=== PATIENT | male | born 1980 | race Caucasian/White ===

== ENCOUNTER 2018-02-05 17:32 | Emergency (ER) | payer MEDICAID, SELFPAY ==
[2018-02-05 17:33] VITALS: BP 147/89; PULSE 98; RESP 17; TEMP 37.3; O2SAT 100; BMI 26.5
--- NOTE | 2018-02-05 17:52 | CT_ITS ---
STUDY: CT ABDOMEN AND PELVIS WITHOUT CONTRAST REASON FOR EXAM: Male, 38 years old. Abdominal pain x3 weeks RADIATION DOSAGE (If Supplied By Facility): CTDIvol = ( 6.85 ) mGy, DLP = ( 350.85 ) mGycm TECHNIQUE: Transaxial images were obtained from the dome of the diaphragm to the symphysis pubis without oral contrast, and without intravenous contrast. Sagittal and coronal images were reconstructed. Individualized dose optimization techniques were used for this CT. COMPARISON: None. FINDINGS: The visualized lung bases are unremarkable. The visualized portions of the heart are within normal limits. Normal liver. Normal gallbladder and extrahepatic biliary system. Normal spleen. Normal pancreas. Normal bilateral adrenal glands. Normal right kidney. Normal left kidney. Normal visualized stomach. Normal small intestine. Normal colon. There are surgical clips in the region of the appendix consistent with a prior appendectomy. Normal abdominal aorta. Normal inferior vena cava. Normal retroperitoneum. Normal urinary bladder. Normal visualized prostate gland. Normal abdominal wall. Normal osseous structures. CT/Abdomen/Pelvis without Cont IMPRESSION: Normal unenhanced CT of the abdomen and pelvis. Status post appendectomy Electronically Signed: Clifton Larson DO at 18:30 EDT Tel , Service support ,
[2018-02-05] MEDS: morphine 10 MG/ML Syringe IM (18:00)
[2018-02-05] MEDS: Ketorolac 60 MG/2 ML Vial IM (18:00)
[2018-02-05 18:13] LABS: Bacteria 0 SEEN /hpf (None Seen); Mucous, Urine 0 SEEN /hpf (<or=2+); Red Blood Cells-Urine 0 SEEN /hpf (0-5); Squamous Epithelial Cells - UA 0 SEEN /hpf (0-5); White Blood Cells 0 SEEN /hpf (0-5)
[2018-02-05 18:20] LABS: Color, Urine Yellow (Yellow); Glucose, Dipstick Normal (Normal); Ketone-Dipstick Negative (Negative); Leukocyte Esterase-Dipstick Negative /ul (Negative); Nitrite-Dipstick Negative (Negative); Occult Blood-Urine Negative /ul (Negative); Protein-Dipstick Negative (Negative); Specific Gravity, Urine 1.005 (1.002-1.030); Urine Bilirubin Dipstick Negative (Negative); Urine Clarity Clear (Clear); Urine Urobilinogen Normal (Normal)
--- NOTE | 2018-02-05 18:55 | ED.DCSUM_ITS ---
- ER Visit Summary Date of Service: 02/05/18 Chief Complaint: Back pain History of Present Illness: The patient is a 38 M who states that for the past 3 weeks he has had a progressively worsening back pain. He describes it as bilateral in the lower back. He states that movement does not necessarily make it worse. He cannot find a position of comfort. The pain is aching to sharp. He has been using [id number] medicines such as Motrin and Tylenol without relief. The pain does not radiate into the legs. He denies any IV drug use fevers or rashes. He is a longtime smoker. He notes no distant or current trauma. Denies any bowel or bladder dysfunction. Denies any weakness of the lower extremity or tingling. Or numbness. Physical Examination: Afebrile vital signs are stable Gen: Well-nourished well-developed patient appears uncomfortable Head: Normocephalic atraumatic Eyes: Perrl EOMI ENT: TMs clear no rhinorrhea moist mucous membranes Neck: Supple no lymphadenopathy no JVD nontender CVS: Regular rate rhythm no murmurs normal S1-S2 Respiratory: No distress clear to auscultation bilaterally chest nontender Abdomen: Soft nontender nondistended normal bowel sounds no masses Back: There is no midline lumbar pain. There is bilateral paraspinal tenderness no erythema or rashes Extremity: Nontender no edema Skin: Normal color no rash Neuro: alert orientated ?3 CN II-XII intact normal strength sensation normal patellar and Achilles deep tendon reflexes antalgic gait Psych: Normal affect normal mood Test Results: Urinalysis was negative for infection. CT abdomen pelvis does not demonstrate an acute etiology to explain the patient's pain. Emergency Department Course and Treatment: Patient received Toradol and morphine. His oars report shows that he had only one prescription last year for controlled substance. This is not appear to be a radicular type of pain. 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 I will write for [place] Valium and ibuprofen. He is to follow-up with primary care which his brother states will be his doctor Dr. Ramos. Impression: 1. Acute lumbar back pain This note was generated with [employer] dictation software. It may contain incorrect words, spelling, and punctuation that were not noted in review of the chart prior to signing ED Disposition - Plan for ED Patient: Disposition: Home or Assisted Living Chief Complaint: Back Instructions: ED Neck Back Pain General Prescriptions: Hydrocodone Bitart/Apap 5-325 [[place] 5MG-325MG] 1 tab PO Q4H PRN PRN 3 Days #15 tab PRN Reason: Pain Diazepam [Valium] 5 mg PO Q8 PRN 3 Days #15 tab PRN Reason: Muscle Spasm Ibuprofen [Motrin] 800 mg PO TID PRN PRN #20 tab PRN Reason: Pain Referrals: Serjio Hernandez MD [STAFF PHYSICIAN] - As soon as possible
== END 2018-02-05 19:03 | disposition home or self-care (01) ==
PROVIDERS: Emergency Provider Emergency Medicine
DX: M54.5 Low back pain (principal); J45.909 Unspecified asthma, uncomplicated; F17.200 Nicotine dependence, unspecified, uncomplicated
CPT/HCPCS: 74176; 81001; 96372; 99282

== ENCOUNTER 2018-02-23 14:35 | Emergency (ER) | payer MEDICAID, SELFPAY ==
[2018-02-23 14:37] VITALS: BP 133/75; PULSE 102; RESP 16; TEMP 36.8; O2SAT 100; BMI 25.5
--- NOTE | 2018-02-23 14:51 | ED.DCSUM_ITS ---
- ER Visit Summary Date of Service: 02/23/18 Chief Complaint: Headache History of Present Illness: The patient is a 38 M presents with frontal headache since yesterday. Photo and phonophobia. Nausea vomiting x3 last time was yesterday evening. Is tolerating oral fluids. Complains of chills and myalgias. No head injuries. No abdominal pain. No diarrhea. No urinary symptoms. History of asthma, reports did obtain the flu vaccination 2 months ago. Tobacco history. Physical Examination: General: Alert and oriented ?3, no acute distress HEENT: Normocephalic, atraumatic. Moist mucosa membranes. Neck: supple, nontender. No meningismus Cardiovascular: Regular rate and rhythm, no murmurs Respiratory: Normal breath sounds, symmetric, no distress Abdomen: Soft, nontender, nondistended Extremities: Nontender, no edema, pulses intact ?4 Neuro: no focal neurological deficits. Test Results: Influenza: Negative Emergency Department Course and Treatment: Patient no meningismus no focal neurologic deficit. Migraine noted symptoms. Treated with migraine regimen with significant improvement of symptoms. Influenza obtained due to his asthma history appears negative. He is in no respiratory distress. Discussed viral syndrome with the patient. Continue oral hydration. Prescription for Zofran as needed. Follow-up as an outpatient. Work note given. Treatment Plan: [] Disposition: Discharge Impression: 1. Cephalgia 2. Viral syndrome This note was generated with [employer] dictation software. It may contain incorrect words, spelling, and punctuation that were not noted in review of the chart prior to signing ED Disposition - Plan for ED Patient: Disposition: Home or Assisted Living Chief Complaint: Headache Diagnosis: Cephalgia, Viral syndrome Instructions: ED Headache Migraine, ED Viral Syndrome Prescriptions: Ondansetron [Zofran Odt] 8 mg PO Q8H PRN PRN #10 tab PRN Reason: Nausea Referrals: Care Physician,No Primary [Primary Care Provider] - Rhett Mclean MD [STAFF PHYSICIAN] - 5-7 Days
[2018-02-23] MEDS: DiphenhydrAMINE 50 MG/ML Syringe 25 MG IV (15:12)
[2018-02-23] MEDS: Metoclopramide 10 MG/2 ML Vial IV (15:13)
[2018-02-23] MEDS: Ketorolac 30 MG/ML Syringe IV (15:13)
[2018-02-23] MEDS: 0.9% Normal Saline 1,000 ML 999 ML IV (15:13)
[2018-02-23 16:04] VITALS: BP 132/78; PULSE 98; RESP 15; O2SAT 98
--- NOTE | 2018-02-23 16:05 | ED.RN ---
PT GIVEN WRITTEN AND VERBAL DISCHARGE INSTRUCTIONS AND HOME GOING PRESCRIPTIONS. PT VERBALIZES UNDERSTANDING AND DENIES ANY FURTHER QUESTIONS. PT IV D/C AND COVERED WITH 2X2 GAUZE AND PAPER TAPE. PT EDUCATED NOT TO DRIVE AFTER HAVING IV BENADRYL FOR SIX MORE HOURS. PT VERBALIZES UNDERSTANDING AND REPORTS THAT HIS FATHER IS COMING TO GET HIM. 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
== END 2018-02-23 16:07 | disposition home or self-care (01) ==
PROVIDERS: Emergency Provider Emergency Medicine
DX: G43.909 Migraine, unspecified, not intractable, without status migrainosus (principal); B34.9 Viral infection, unspecified; R68.83 Chills (without fever); R05 Cough; J45.909 Unspecified asthma, uncomplicated; Z72.0 Tobacco use
CPT/HCPCS: 87804; 96361; 96374; 96375; 99283; J7030

== ENCOUNTER 2018-06-30 09:12 | Emergency (ER) | payer MEDICAID, SELFPAY ==
--- NOTE | 2018-06-30 09:14 | EKG12_ITS ---
Test Reason : Blood Pressure : / mmHG Vent. Rate : 089 BPM Atrial Rate : 089 BPM P-R Int : 186 ms QRS Dur : 086 ms QT Int : 374 ms P-R-T Axes : 060 027 045 degrees QTc Int : 455 ms Normal sinus rhythm Normal ECG Confirmed by PHILLIP FLORENCE MD ([id number]), commercial production editor ALMA DELIA BACON ([id number]) on 07/01/2018 3:51:58 PM Referred By: CHARLEE Confirmed By:PHILLIP FLORENEC MD
[2018-06-30 09:20] VITALS: BP 143/93; PULSE 92; RESP 18; TEMP 31.6; O2SAT 98; BMI 23.4
--- NOTE | 2018-06-30 09:28 | ED.DCSUM_ITS ---
History of Present Illness Chief Complaint: Chest Pain Informant: Patient Onset: Today Context: Sudden Onset Timing: Continuous Quality: Sharp Location: Anterior left chest Current Severity: Mild Maximum Severity: Severe Worsened by: Coughing, movement especially left upper extremity Relieved by: Nothing Associated Symptoms: URI symptoms Narrative: Patient is a 38-year-old male who is a smoker of 1 pack/day presents with left- sided chest pain. He does report congestion, sore throat and cough. Cough is nonproductive. He denies fever or chills. He denies ocular, visual auditory symptoms. Denies history of PE, DVT or any risk factors. Prior similar symptoms: No Recent Illness/Hospitalization: No Past Medical History - Allergies and Home Meds Allergies/Adverse Reactions: Allergies No Known Allergies Allergy (Verified 06/30/18 09:22) Primary Care Physician: Care Physician,No Primary [Primary Care Provider] - Prior records reviewed: Yes Past Medical History: None Surgical History: no surgical history Lives: With Family Smoking Status: Current every day smoker Drugs: None Review of Systems General: Reports: Chills, Fever, Subjective Eyes: Denies: Visual changes - bilaterally, Blurred Vision - bilaterally, Diplopia ENT: Reports: Rhinorrhea, Sore throat. Denies: Bilateral ear pain Cardiovascular: Denies: Chest pain, Palpitations, Heart racing Respiratory: Reports: Cough. Denies: Sputum, Dyspnea on exertion, Orthopnea, Paroxysmal nocturnal dyspnea Gastrointestinal: Denies: Abdominal pain, Nausea, Vomiting, Diarrhea, Melena, Hematochezia Genitourinary: Denies: Dysuria, Hematuria, Frequency Musculoskeletal: Denies: Back pain, Extremity Pain Skin: Denies: Rash, Wounds Neurological: Denies: Headache, Weakness, Numbness Hematologic: Denies: Easy bruising, Easy bleeding Allergy: Denies: Uticaria Physical Exam Vital Signs/Narrative: Vital Signs Temp Pulse Resp BP Pulse Ox 06/30/18 09:20 89 F L 92 18 143/93 H 98 General: Well nourished, Well developed, No Acute Distress Head: Normocephalic, Atraumatic Eyes: Perrl, EOMI ENT: Moist mucous membranes, No rhinorrhea Neck: Supple, Nontender Cardiovascular: Regular rate, Regular rhythm, No murmurs Respiratory: No distress, CTA bilaterally, Chest tenderness - Thanks I went not output is good weight is again for skin Abdomen: Soft, Nontender, Nondistended, Normal bowel sounds Back: Nontender, Normal Inspection Extremities: Nontender, No edema, - - There is no asymmetry, swelling, discoloration, leg vein distention, palpable cords or tenderness along the distribution of the deep venous system. Skin: Normal color, No rash Neurological: Alert, Oriented x3, Cranial nerves II-XII grossly intact, Normal Strength, Normal Sensation Psychological: Normal affect, Normal Mood Diagnostic/Tx/Re-eval - Rhythm Strip Rhythm Strip: Sinus Rhythm Rate: 86 Ectopy: None - EKG Initial EKG Interpretation: Sinus Rhythm - Ventricular rate 89, MI interval, QRS duration, QT interval and axis are normal. EKG was ordered per nurse protocol since he reported chest pain. - Medical Decision Making Heart rate on monitor is 86. Patient is PERC negative. Since patient has URI symptoms reproducible chest pain will treat for costochondritis. Imaging is not indicated. Laboratory testing is not indicated nor was it obtained. Patient was informed since he is a smoker he may have a cough for 4 weeks. ED Disposition - Plan for ED Patient: Disposition: Home or Assisted Living Diagnosis: Acute costochondritis, Upper respiratory infection, acute Instructions: ED Chest Pain Costochondritis, ED URI Viral Prescriptions: Naproxen [Naprosyn] 500 mg PO BID #14 tablet Referrals: Care Physician,No Primary [Primary Care Provider] - Fallon Costello DO [STAFF PHYSICIAN] - 10-14 Days if not better
[2018-06-30] MEDS: Naproxen 250 MG Tablet 500 MG PO (10:33)
[2018-06-30 10:34] VITALS: BP 124/78; PULSE 81; RESP 16; O2SAT 100
== END 2018-06-30 10:35 | disposition home or self-care (01) ==
LOC: ED 09:41
PROVIDERS: Emergency Provider Emergency Medicine; Family Provider Family Medicine; PCP Family Medicine
DX: M94.0 Chondrocostal junction syndrome [Tietze] (principal); J06.9 Acute upper respiratory infection, unspecified; F17.200 Nicotine dependence, unspecified, uncomplicated
CPT/HCPCS: 93005; 99282; A4216

== ENCOUNTER 2018-10-27 11:29 | Emergency (ER) | payer OTHER, SELFPAY ==
[2018-10-27 11:29] VITALS: BP 148/96; PULSE 89; RESP 18; TEMP 36.6; O2SAT 98; BMI 26.4
--- NOTE | 2018-10-27 11:57 | ED.VISSUMM ---
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 He did not have any pain while he was lifting. After he got home he developed pain in the low back. States it is worse today. Is worse with movement. He denies any fevers or IV drug use. He notes no radicular symptoms to the legs. No bowel or bladder dysfunction. Any lower extremity weakness or decreased sensation. Physical Examination: Afebrile vital signs are stable Gen: Well-nourished well-developed Head: Normocephalic atraumatic Eyes: Perrl EOMI ENT: TMs clear no rhinorrhea moist mucous membranes Neck: Supple no lymphadenopathy no JVD nontender CVS: Regular rate rhythm no murmurs normal S1-S2 Respiratory: No distress clear to auscultation bilaterally chest nontender Abdomen: Soft nontender nondistended normal bowel sounds no masses Back: Patient has tenderness palpation over the lumbar paraspinal musculature. There is no rash swelling or erythema to suggest abscess. Extremity: Nontender no edema Skin: Normal color no rash Neuro: alert orientated ?3 CN II-XII intact normal strength sensation reflexes antalgic gait Psych: Normal affect normal mood Emergency Department Course and Treatment: The patient received a dose of Toradol Norflex and [place]. I will write for Valium and [place] and ibuprofen at home. He is to follow-up with [employer]. Impression: 1. Acute lumbar muscle strain This note was generated with [employer] dictation software. It may contain incorrect words, spelling, and punctuation that were not noted in review of the chart prior to signing ED Disposition - Plan for ED Patient: Disposition: Home or Assisted Living Instructions: Back Sprain/Strain Prescriptions: Ibuprofen [Motrin] 800 mg PO TID PRN PRN #15 tab PRN Reason: pain Prescription Printed Hydrocodone Bitart/Apap 5-325 [[place] 5MG-325MG] 1 tab PO Q6H PRN PRN 3 Days #12 tab PRN Reason: Pain Prescription Printed Diazepam [Valium] 5 mg PO Q8 PRN #15 tab PRN Reason: Muscle Spasm Prescription Printed Referrals: [facility] [GROUP OF PHYSICIANS] - As soon as possible
[2018-10-27] MEDS: Orphenadrine 60 MG/2 ML Ampul IM (12:02)
[2018-10-27] MEDS: Ketorolac 60 MG/2 ML Vial IM (12:02)
[2018-10-27] MEDS: HYDROcodone Bitartrate/Apap 5/325 Tablet PO (12:03)
--- NOTE | 2018-10-27 12:20 | ED.RN ---
PT INFORMED HE NEEDS TO GO TO [facility] FOR HIS [facility]UG SCREENING PRIOR TO RETURNING TO WORK.
== END 2018-10-27 12:21 | disposition home or self-care (01) ==
PROVIDERS: Emergency Provider Emergency Medicine; Family Provider Family Medicine; PCP Family Medicine
DX: S39.012A Strain of muscle, fascia and tendon of lower back, initial encounter (principal); X58.XXXA Exposure to other specified factors, initial encounter; Y93.9 Activity, unspecified; Y92.9 Unspecified place or not applicable; Z72.0 Tobacco use
CPT/HCPCS: 96372; 99282

== ENCOUNTER 2018-12-29 13:03 | Emergency (ER) | payer MEDICAID, SELFPAY ==
[2018-12-29 13:03] VITALS: BP 128/85; PULSE 95; RESP 16; TEMP 36.8; O2SAT 99; BMI 26.0
--- NOTE | 2018-12-29 13:15 | CT_ITS ---
STUDY: CT CERVICAL SPINE WITHOUT CONTRAST REASON FOR EXAM: Male, 38 years old. Stiff neck and headaches. RADIATION DOSAGE (If Supplied By Facility): CTDIvol = ( 26.64 ) mGy, DLP = ( 647.19 ) mGycm TECHNIQUE: High resolution transaxial imaging was performed without contrast material. Sagittal and coronal images were reconstructed. Individualized dose optimization techniques were used for this CT. COMPARISON: None FINDINGS: Normal craniovertebral junction. Normal anterior atlantoaxial articulation. Normal odontoid process. There is straightening of the normal cervical lordosis. Normal vertebral bodies and posterior osseous elements. C2-3: Normal endplates. Normal disc height and morphology. Normal central canal and intervertebral neuroforamina. C3-4: Normal endplates. Normal disc height and morphology. Normal central canal and intervertebral neuroforamina. C4-5: Normal endplates. Normal disc height and morphology. Normal central canal and intervertebral neuroforamina. C5-6: Mild degree of disc space narrowing with anterior spondylosis. C6-7: Normal endplates. Normal disc height and morphology. Normal central canal and intervertebral neuroforamina. C7-T1: Normal endplates. Normal disc height and morphology. Normal central canal and intervertebral neuroforamina. Normal visualized soft tissue structures. CT/Spine Cervical without Contras IMPRESSION: Mild degree of disc space narrowing with anterior spondylosis at the C5-C6 level. Electronically Signed: Chevy Subramanian, at 14:53 EDT , Service support ,
--- NOTE | 2018-12-29 13:16 | ED.VIS.GEN ---
History of Present Illness Chief Complaint: General Illness Detail of Chief Complaint: Neck and head pain Informant: Patient Onset: Days - 4 days Context: Gradual Onset Current Severity: Moderate Maximum Severity: Moderate Narrative: Patient presents with a 4-day history of pain in the right side of his neck and up into the occiput. Patient was playing with his children. He states they were jumping on the bed and then face planting on the bed like a wrestling move. He had no pain after doing this, but had right neck pain in the next morning when he woke up. Pain has persisted for 4 days. He states he gets mild light sensitivity and is felt nauseated and fatigued. He has been trying Tylenol and ibuprofen without improvement. He denies any arm weakness or paresthesias. He denies fever or other illness. Past Medical History - Allergies and Home Meds Allergies/Adverse Reactions: Allergies No Known Allergies Allergy (Verified 12/29/18 13:05) Primary Care Physician: Fallon Costello DO [STAFF PHYSICIAN] - Prior records reviewed: Yes Past Medical History: - - Reviewed Surgical History: no surgical history Lives: With Family Smoking Status: Current every day smoker Review of Systems General: Denies: Chills, Fever Eyes: Denies: Visual changes - bilaterally ENT: Denies: Bilateral ear pain Cardiovascular: Denies: Chest pain Respiratory: Denies: Dyspnea, Cough Gastrointestinal: Reports: Nausea Musculoskeletal: Reports: Neck pain. Denies: Extremity Pain Skin: Denies: Rash Neurological: Reports: Headache - Occiput Physical Exam Vital Signs/Narrative: Vital Signs Temp Pulse Resp BP Pulse Ox 12/29/18 13:03 98.2 F 95 16 128/85 H 99 Inital Vital Signs reviewed: Yes General: Well nourished, Well developed Head: Normocephalic Eyes: Perrl, EOMI ENT: Moist mucous membranes Neck: - - Reproducible tenderness in the right lower cervical paraspinal muscles and along the deltoid. No midline cervical tenderness. Cardiovascular: Regular rate, Regular rhythm Respiratory: No distress, CTA bilaterally Abdomen: Soft, Nontender, Hypoactive bowel sounds Back: Nontender Extremities: Nontender, No edema Skin: Normal color, No rash Neurological: Alert, Oriented x3, Normal Strength, Normal Sensation Psychological: Normal affect Diagnostic/Tx/Re-eval Impressions Cervical Spine CT 12/29/18 13:15 IMPRESSION: Mild degree of disc space narrowing with anterior spondylosis at the C5-C6 level. Electronically Signed: Chevy Subramanian, at 14:53 EDT , Service support , 12/29/18 13:15 CT Cervical [Spine Cervical without Contras] [CT] Stat - Medical Decision Making She was initially given morphine, Zofran, Toradol, and IV fluids. This was followed by a dose of p.o. Valium. Test results are discussed with patient and at bedside. Symptoms are improving. He will be given a work note for today. ED Disposition - Plan for ED Patient: Disposition: Home or Assisted Living Diagnosis: Spasm of cervical paraspinous muscle Instructions: Neck Sprain/Strain, NECK SPASM, No Trauma Prescriptions: Naproxen [Naprosyn] 500 mg PO BID PRN PRN #20 tablet PRN Reason: Pain Score 1-10/10 Hydrocodone Bitart/Apap 5-325 [[place] 5MG-325MG] 1 tablet PO Q4H PRN PRN 2 Days #10 tablet PRN Reason: Pain Diazepam [Valium] 5 mg PO Q8 PRN #10 tablet PRN Reason: Muscle Spasm Referrals: Fallon Costello DO [STAFF PHYSICIAN] - 1 Week if not improving
[2018-12-29] MEDS: 0.9% Normal Saline 1,000 ML 1000 ML IV (13:35)
[2018-12-29] MEDS: Ondansetron 4 MG/2 ML Vial IV (13:36)
[2018-12-29] MEDS: Ketorolac 30 MG/ML Syringe IV (13:36)
[2018-12-29] MEDS: Morphine 4 MG/ML Syringe IV (13:36)
[2018-12-29] MEDS: diazePAM 5 MG Tablet PO (14:57)
[2018-12-29 15:27] VITALS: BP 115/76; PULSE 81; RESP 12; O2SAT 99
== END 2018-12-29 15:29 | disposition home or self-care (01) ==
PROVIDERS: Emergency Provider Emergency Medicine
DX: M62.838 Other muscle spasm (principal); M54.2 Cervicalgia; R11.0 Nausea; R53.83 Other fatigue; R51 Headache; W22.8XXA Striking against or struck by other objects, initial encounter; Y93.39 Activity, other involving climbing, rappelling and jumping off; Y92.9 Unspecified place or not applicable; M47.812 Spondylosis without myelopathy or radiculopathy, cervical region; F17.200 Nicotine dependence, unspecified, uncomplicated
CPT/HCPCS: 72125; 96361; 96374; 96375; 99285; J7030; J2405

== ENCOUNTER 2019-10-03 12:13 | Emergency (ER) | payer MEDICAID, SELFPAY ==
[2019-10-03 12:14] VITALS: BP 123/79; PULSE 86; RESP 16; TEMP 36.4; O2SAT 97; BMI 29.0
--- NOTE | 2019-10-03 12:35 | RAD_ITS ---
STUDY: X-RAY - RIGHT FOOT CLINICAL: Male, 39 years old. Injury, right foot pain TECHNIQUE: 3 view(s) of the foot. COMPARISON: None. FINDINGS: Normal talus, calcaneus, and tarsal bones. Normal visualized subtalar, talonavicular, calcaneocuboid, tarsal and tarsometatarsal articulations. Normal metatarsi. Normal metatarsophalangeal joint of the great toe. Normal tibial and fibular sesamoid bones. Normal interphalangeal joint of the great toe. Normal phalanges of the great toe. Normal second through fifth metatarsophalangeal joints. Normal interphalangeal joints and phalanges of the lesser toes. The soft tissue structures are unremarkable. RAD/Foot min 3 Views IMPRESSION: Normal x-ray examination of the foot. Electronically Signed: Chevy Subramanian, at 13:23 EDT , Service support ,
--- NOTE | 2019-10-03 13:09 | RAD_ITS ---
STUDY: X-RAY - RIGHT ANKLE REASON FOR EXAM: Male, 39 years old. PAIN, INJURY 2 DAYS AGO TECHNIQUE: 3 view(s) of the ankle. COMPARISON: Comparison is made with prior study dated October 12, 2013. FINDINGS: Normal visualized distal tibia and fibula. Normal medial and lateral malleoli. Normal tibiotalar articulation and ankle mortise. A small spur is seen at the insertion of the Achilles tendon. The visualized subtalar, talonavicular, calcaneocuboid and tarsal articulations are normal. The soft tissue structures are unremarkable. RAD/Ankle min 3 Views IMPRESSION: Normal x-ray examination of the ankle. Electronically Signed: Chevy Subramanian, at 13:33 EDT , Service support ,
--- NOTE | 2019-10-03 13:10 | ED.DCSUM_ITS ---
- ER Visit Summary Date of Service: 10/03/19 Chief Complaint: Right foot and ankle pain History of Present Illness: The patient is a 39 M who presents with right foot and ankle pain that is been getting worse over the past 2 days. Patient states he injured his right foot and ankle while jumping on a trampoline. Patient states the pain is sharp. Patient states pain is worse with any weightbearing. Patient denies any paresthesias or weakness. Patient denies any head injury or loss of consciousness. Patient denies any other injuries. Physical Examination: Vital signs are stable. Patient is afebrile. Patient is in no acute distress. Musculoskeletal exam reveals tenderness over the midfoot and hindfoot of the right foot. There is also tenderness over the lateral malleolus of the right ankle. There is some edema. There is some mild ecchymosis. There is no deformity noted. Range of motion was limited in all motions of the right foot and ankle secondary to pain. Pedal pulses are equal bilaterally. Sensation was intact light touch in all digits. Capillary refill was less than 2 seconds in all digits. Test Results: X-rays of the right foot were obtained. There is no acute fracture. X-rays of the right ankle were obtained. There is no acute fracture. These were interpreted by the radiologist and myself. Emergency Department Course and Treatment: Patient was given an ice pack. Patient was given an Aircast for his ankle. Patient was instructed to ice and elevate the right foot and ankle. Patient was instructed to follow-up with his primary care physician in 5 to 7 days. Patient understood and was agreeable with the plan. All questions were answered. Disposition: Discharge home Impression: 1. Right ankle sprain This note was generated with [employer] dictation software. It may contain incorrect words, spelling, and punctuation that were not noted in review of the chart prior to signing ED Disposition - Plan for ED Patient: Disposition: Home or Assisted Living Diagnosis: Right ankle sprain Instructions: ED Sprain Ankle W X Ray Referrals: Care Physician,No Primary [Primary Care Provider] - 5-7 Days
[2019-10-03 14:34] VITALS: BP 108/77; PULSE 82; RESP 16; O2SAT 98
== END 2019-10-03 14:35 | disposition home or self-care (01) ==
PROVIDERS: Emergency Provider Emergency Medicine
DX: S93.401A Sprain of unspecified ligament of right ankle, initial encounter (principal); X58.XXXA Exposure to other specified factors, initial encounter; Y93.44 Activity, trampolining; Y92.9 Unspecified place or not applicable; Y99.9 Unspecified external cause status; Z72.0 Tobacco use; Z79.899 Other long term (current) drug therapy
CPT/HCPCS: 73610; 73630; 99283

== ENCOUNTER 2020-04-22 22:25 | Emergency (ER) | payer MEDICAID, SELFPAY ==
[2020-04-22 22:26] VITALS: BP 121/109; PULSE 103; RESP 15; TEMP 36.1; O2SAT 96; BMI 26.6
--- NOTE | 2020-04-22 22:45 | ED.VIS.GEN ---
History of Present Illness Chief Complaint: Upper Extremity Injury Informant: Patient Onset: Days Context: Gradual Onset Timing: Continuous Current Severity: Moderate Maximum Severity: Moderate Narrative: Patient is a 40-year-old male is right-hand dominant the presents to the emergency department with right posterior shoulder pain. Patient states is been on for about a week. He describes a sharp, stabbing pain under her shoulder blade. He states is worse if he moves, twists, or cough. He denies shortness of breath. He denies fevers or chills. He states today, the pain got significant and he vomited. He cannot recall any injury. He is used ibuprofen and topical treatments with little relief. He denies any numbness in the hand. He states he does feel like his neck is tight from time to time. Prior similar symptoms: No Recent Illness/Hospitalization: No Past Medical History - Allergies and Home Meds Allergies/Adverse Reactions: Allergies No Known Allergies Allergy (Verified 04/22/20 22:30) Primary Care Physician: Care Physician,No Primary [Primary Care Provider] - Prior records reviewed: Yes Past Medical History: None Surgical History: no surgical history Smoking Status: Current every day smoker Review of Systems General: Denies: Chills, Fever, Sweats Eyes: Denies: Visual changes - bilaterally, Diplopia ENT: Denies: Rhinorrhea, Sore throat Cardiovascular: Denies: Chest pain, Palpitations Respiratory: Denies: Dyspnea, Cough, Dyspnea on exertion Gastrointestinal: Denies: Abdominal pain, Nausea, Vomiting, Diarrhea, Melena, Hematochezia Genitourinary: Denies: Dysuria, Hematuria, Frequency Musculoskeletal: Reports: Myalgias, Arthralgias. Denies: Back pain, Extremity Pain Skin: Denies: Rash, Wounds Neurological: Denies: Headache, Weakness, Numbness Physical Exam Vital Signs/Narrative: Vital Signs Temp Pulse Resp BP Pulse Ox 04/22/20 22:26 97.0 F L 103 H 15 121/109 H 96 Inital Vital Signs reviewed: Yes General: Well nourished, Well developed, No Acute Distress Head: Normocephalic, Atraumatic Eyes: Perrl, EOMI ENT: Moist mucous membranes, No rhinorrhea Neck: Supple, Nontender Cardiovascular: Regular rate, Regular rhythm, No murmurs Respiratory: No distress, CTA bilaterally, Chest nontender Abdomen: Soft, Nontender, Nondistended, Normal bowel sounds Back: Normal Inspection, - - The patient is point tender in the rhomboid musculature with some spasm. There is no crepitus or step-off. He has no midline bony tenderness. Pulses of bilateral upper extremities are normal. He has normal strength and reflexes. His neck is supple. Extremities: Nontender, No edema Skin: Normal color, No rash Neurological: Alert, Oriented x3, Cranial nerves II-XII grossly intact, Normal Strength, Normal Sensation Psychological: Normal affect, Normal Mood Diagnostic/Tx/Re-eval Clinical Impression(s) from Imaging Studies Thoracic Spine X-Ray 04/22/20 22:50 IMPRESSION: Normal x-ray examination of the thoracic spine. Electronically Signed: Kal Bryant MD at 23:31 EST , Service support , - Medical Decision Making The patient presents with upper back and shoulder pain. He is not hypoxic or tachypneic. He has no pleuritic pain. His pain is reproducible. Clinically, I think he may be a thoracic impingement. The pain does not radiate down his arms. He has normal pulses, reflexes, and strength. He has no significant neck pain. I did obtain thoracic spine views. These were reviewed by both myself and the radiologist. There is no evidence of acute fracture, dislocation, or other dangerous process. His lung dumont are also normal. At this point, I am going to treat the patient with anti-inflammatories and analgesics. I will have him follow-up with his primary care in a week if is not improving. The patient will be discharged home. Impression 1. Thoracic impingement ED Disposition - Plan for ED Patient: Instructions: ED Thoracic Spine Strain Prescriptions: cycloBENZAPRine HCl [Flexeril] 10 mg PO TID PRN #20 tab PRN Reason: Muscle Spasm Prescription Printed MethylPREDNISolone DosePak [Medrol DosePak] 4 mg PO UD #1 box Prescription Printed Hydrocodone Bitart/Apap 5-325 [[place] 5MG-325MG] 1 tab PO Q6H PRN PRN 3 Days #10 tab PRN Reason: Pain Prescription Printed Referrals: Care Physician,No Primary [Primary Care Provider] -
--- NOTE | 2020-04-22 22:50 | RAD_ITS ---
STUDY: X-RAY - THORACIC SPINE REASON FOR EXAM: Male, 40 years old. RIGHT SHOULDER PAIN, RT UPPER BACK PAIN X 1 WEEK. DENIES INJURY. TECHNIQUE: 3 view(s) of the thoracic spine were obtained. COMPARISON: None. FINDINGS: Normal kyphosis of the thoracic spine. There is no substantial scoliosis. Normal thoracic vertebrae and endplates. Normal disc space heights. The soft tissue structures are unremarkable. RAD/Thoracic Spine 3 Views IMPRESSION: Normal x-ray examination of the thoracic spine. Electronically Signed: Kal Bryant MD at 23:31 EST , Service support ,
[2020-04-22] MEDS: HYDROcodone Bitartrate/Apap 5/325 Tablet PO (23:06)
[2020-04-22] MEDS: Ondansetron ODT 4 MG Tablet PO (23:06)
[2020-04-22] MEDS: cycloBENZAPRine HCl 10 MG Tablet PO (23:06)
== END 2020-04-22 23:55 | disposition home or self-care (01) ==
LOC: ED 23:14
PROVIDERS: Emergency Provider Emergency Medicine
DX: M25.511 Pain in right shoulder (principal); M54.6 Pain in thoracic spine; M62.830 Muscle spasm of back; F17.200 Nicotine dependence, unspecified, uncomplicated
CPT/HCPCS: 72072; 99283

== ENCOUNTER 2021-09-20 06:12 | Emergency (ER) | payer MEDICAID, SELFPAY ==
[2021-09-20 06:16] VITALS: BP 114/65; PULSE 108; RESP 18; TEMP 36.6; O2SAT 97; BMI 32.1
--- NOTE | 2021-09-20 06:26 | RAD_ITS ---
STUDY: X-RAY - RIGHT ANKLE REASON FOR EXAM: Male, 41 years old. injury TECHNIQUE: 3 view(s) of the ankle. COMPARISON: Right ankle x-rays 10/03/2019. FINDINGS: BONES: No fracture demonstrated. JOINTS: No dislocation. SOFT TISSUES: Soft tissue swelling overlying the lateral malleolus, and anterior. RAD/Ankle min 3 Views IMPRESSION: Soft tissue swelling. No evidence of fracture. Electronically Signed: Jamee Taylor MD at 7:11 EDT ,
--- NOTE | 2021-09-20 06:26 | RAD_ITS ---
STUDY: X-RAY - RIGHT FOOT CLINICAL: Male, 41 years old. injury TECHNIQUE: 3 view(s) of the foot. COMPARISON: Right foot x-rays 10/03/2019. FINDINGS: BONES: No fracture demonstrated. JOINTS: No dislocation. SOFT TISSUES: Unremarkable. RAD/Foot min 3 Views IMPRESSION: No evidence of fracture. Electronically Signed: Jamee Taylor MD at 7:13 EDT ,
--- NOTE | 2021-09-20 06:46 | EDS_ITS ---
HPI History of Present Illness Chief Complaint: Lower Extremity Injury Informant: patient Onset/Context/Timing Onset: Today Context: Sudden Onset Timing: Continuous Quality of Pain: Aching Location: Right ankle and foot Current Severity: Severe Maximum Severity: Severe Worsened by: Movement, bearing weight Relieved by: Remaining still Associated Symptoms Associated Symptoms: Negative for Parasthesia, Weakness or Loss of Funtion Narrative Narrative: Patient was drinking tonight, practicing spinning fire on sticks and he twisted his ankle and fell off of his porch. He states he denies any other injury, just his right ankle and foot. He is able to bear weight on it but it is painful. [facility] Medical History Appendicitis Home Medications NK 09/20/21 [History Last Taken Unknown] Allergy/AdvReac Type Severity Reaction Status Date / Time No Known Allergies Allergy Verified 09/20/21 06:23 Social History Smoking Status: Current every day smoker tobacco type: cigarettes ROS ROS ED Constitutional Constitutional ED: Denies chills or fever(s) Musculoskeletal Musculoskeletal: Reports extremity pain; Denies neck pain Integumentary Denies Abrasions, rash or wounds Neurologic Neurologic: Denies paresthesias or weakness EXAM Physical Exam Const Vital Signs: 09/20/21 06:16 Temperature 97.9 F Temperature Source Temporal Pulse Rate 108 H Respiratory Rate 18 Blood Pressure 114/65 Blood Pressure Mean 81 Pulse Ox 97 Oxygen Delivery Method Room Air Positive well nourished and well developed General Appearance ED: well developed and NAD Neck full ROM and supple Back/Spine normal ROM and normal to inspection Extremity Extremity Narrative: Tender and swollen right lateral malleolus, nontender medial malleolus. Tender along the first ray of the foot, mostly the metacarpal without any obvious signs of injury or deformity, nontender throughout the rest of the foot including the base of the fifth metatarsal. Nontender proximal fibula and rest of the lower leg. Limited range of motion of the ankle due to pain. Intact dorsalis pedis pulse. Neuro oriented x3, no focal motor deficits and no sensory deficits noted Neuro Narrative: Patient is intoxicated, cooperative. Sensorium / Orientation: alert Psych mental status grossly normal and thought process normal Skin no wounds Rashes: no rashes MDM MDM MDM Narrative Medical decision making narrative: Three-view x-rays of the right ankle and 3 view x-ray series of the right foot both are negative on my interpretation, radiology in agreement. Patient is reassured, given an Aircast, crutches after he was given Naprosyn and a [place] for pain which helped. Given appropriate discharge instructions for sprain. Radiography Diagnostic Testing: Clinical Impression(s) from Imaging Studies Ankle X-Ray 09/20/21 06:26 IMPRESSION: Soft tissue swelling. No evidence of fracture. Electronically Signed: Jamee Taylor MD at 7:11 EDT , Foot X-Ray 09/20/21 06:26 IMPRESSION: No evidence of fracture. Electronically Signed: Jamee Taylor MD at 7:13 EDT , Discharge Plan Triage Chief Complaint: Lower Extremity Injury ED Provider: Josef Gonzalez Dx/Rx/DC Orders Clinical Impression: Right ankle sprain Instructions: ED Ankle Sprain (Adult) Prescriptions: No Action NK Primary Care Provider: Care Physician,No Primary Referrals: Keo Proctor, DO [STAFF PHYSICIAN] - (If not improving after 2 weeks) Care Physician,No Primary [Primary Care Provider] - Activity Restrictions/Additional Instructions: Ice area and elevate, take ibuprofen as needed for swelling and pain. Use crutches and Aircast for as long as you need, you should be able to use the crutches less or not at all after 1 or 2 weeks. Disposition Disposition: Home, Self Care
[2021-09-20] MEDS: Naproxen 250 MG Tablet 500 MG PO (07:06)
[2021-09-20] MEDS: HYDROcodone Bitartrate/Apap 5/325 Tablet PO (07:07)
[2021-09-20 07:50] VITALS: BP 134/72; PULSE 71; RESP 16; O2SAT 98
== END 2021-09-20 07:50 | disposition home or self-care (01) ==
PROVIDERS: Emergency Provider Emergency Medicine; Visit Provider Emergency Medicine
DX: S93.401A Sprain of unspecified ligament of right ankle, initial encounter (principal); W17.89XA Other fall from one level to another, initial encounter; Y92.009 Unspecified place in unspecified non-institutional (private) residence as the place of occurrence of the external cause; F17.210 Nicotine dependence, cigarettes, uncomplicated
CPT/HCPCS: 73610; 73630; 99285

== ENCOUNTER 2021-11-15 17:55 | Emergency (ER) | payer MEDICAID, SELFPAY ==
[2021-11-15 17:56] VITALS: BP 169/131; PULSE 95; RESP 16; TEMP 35.7; O2SAT 97; BMI 31.6
--- NOTE | 2021-11-15 18:58 | EX.ED.UPPERE ---
HPI History of Present Illness Chief Complaint: Upper Extremity Injury Informant: patient Narrative Narrative: Patient presents with several days of pain that is in the top of his shoulder occasionally in his elbow. He has some tingling intermittently of the fingertips of the thumb and index on the left. If he moves his neck sometimes it is sore. But he has no chest pain or dyspnea. He has no trauma. He has been trying Tylenol and [id number] nonsteroidals and is not really helping. He has not developed any weakness. He has no history of trauma. [facility] Medical History Appendicitis Home Medications cyclobenzaprine 10 mg tablet 10 mg PO BID PRN muscle spasm #10 tabs 11/15/21 [Rx Last Taken Unknown] hydrocodone-acetaminophen 5-325mg 5mg-325mg 1 tab PO Q6H PRN pain 3 days #10 tabs 11/15/21 [Rx Last Taken Unknown] prednisone 20 mg tablet 60 mg PO DAILY #15 tabs 11/15/21 [Rx Last Taken Unknown] Allergy/AdvReac Type Severity Reaction Status Date / Time No Known Allergies Allergy Verified 11/15/21 17:56 Social History Smoking Status: Current every day smoker tobacco type: cigarettes ROS ROS ED Constitutional Constitutional ED: Denies chills, fever(s) or subjective ENT ENT ED: Denies rhinorrhea or sore throat Cardiovascular Cardiovascular: Denies chest pain, palpitations or racing heartbeat Respiratory/Chest Respiratory/Chest: Denies cough or dyspnea Gastrointestinal Gastrointestinal: Denies abdominal pain, nausea or vomiting Musculoskeletal Musculoskeletal: Reports neck pain and other Details: See history of present illness ; Denies back pain or myalgias Neurologic Neurologic: Reports paresthesias; Denies headache(s) or weakness Endocrine Endocrinology: Denies polydipsia or polyuria Hematologic/Lymphatic Hematologic/Lymphatic: Denies easy bleeding, easy bruising or lymphadenopathy Allergic/Immunologic Allergic/Immunologic ED: Denies urticaria EXAM Physical Exam Const Vital Signs: 11/15/21 17:56 Temperature 96.3 F L Temperature Source Temporal Pulse Rate 95 Respiratory Rate 16 Blood Pressure 169/131 H Blood Pressure Mean 143 Pulse Ox 97 Oxygen Delivery Method Room Air Positive well nourished and well developed General Appearance ED: well developed and NAD HEENT Reports moist mucous membranes Negative for trauma or tenderness Eyes EOMs intact bilaterally Neck Neck Narrative: Patient has good range of motion but when he looks to the left he gets more pain across the top shoulder. If I axial load his C-spine it does not hurt but when I lean his head to the left and axial load it reproduces pain in the shoulder and tingling in his fingertips. Lymph Lymphatic Narrative: No lymphadenopathy Chest Wall inspection of chest normal and palpation of chest normal Resp normal respiratory effort and clear to auscultation bilaterally Cardio regular rate and regular rhythm GI non-tender Extremity normal to inspection Extremity Narrative: No swelling. No focal tenderness except at the supraspinatus muscle of the shoulder. Pulses are normal. Capillary refill is normal. 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 He has some intermittent tingling of the volar tip of his thumb and index. He has negative Tinel's at the wrist but he has a positive Iveth's. Psych mental status grossly normal Skin Skin Narrative: No rash. No vesicles MDM MDM MDM Narrative Medical decision making narrative: Patient is pain at the top of his shoulder and then spots near his elbow. He has intermittent paresthesias. It is reproduced with compression of the cervical spine. I think this is likely a cervical radiculopathy. He has not responded to nonsteroidals. Patient only has 2 narcotics on his online prescribing report. I think he is having real symptoms not just seeking medications. I will start him on a short course of narcotics along with steroids. I will also write a muscle relaxant as I think he is getting some tightness of his supraspinatus region. We discussed reasons to return and he should follow-up to get rechecked. Discharge Plan Triage Chief Complaint: Upper Extremity Injury ED Provider: Jose David Tang Dx/Rx/DC Orders Clinical Impression: Cervical radiculopathy Instructions: ED Radiculopathy, Cervical Prescriptions: New cyclobenzaprine 10 mg tablet 10 mg PO BID PRN (Reason: muscle spasm) Qty: 10 0RF hydrocodone-acetaminophen 5-325 mg tablet 1 tab PO Q6H PRN (Reason: pain) 3 Days Qty: 10 0RF prednisone 20 mg tablet 60 mg PO DAILY Qty: 15 0RF Primary Care Provider: Ena Holloway Referrals: Ena Holloway MD [Primary Care Provider] - 3-5 Days Disposition Disposition: Home, Self Care
== END 2021-11-15 20:08 | disposition home or self-care (01) ==
PROVIDERS: Emergency Provider Emergency Medicine; Visit Provider Emergency Medicine
DX: M54.12 Radiculopathy, cervical region (principal); M25.522 Pain in left elbow; M25.512 Pain in left shoulder; F17.210 Nicotine dependence, cigarettes, uncomplicated
CPT/HCPCS: 99281; 99282

== ENCOUNTER 2021-12-02 09:50 | Emergency (ER) | payer MEDICAID, SELFPAY ==
[2021-12-02 09:51] VITALS: BP 159/117; PULSE 109; RESP 19; TEMP 36.6; O2SAT 100; BMI 30.3
--- NOTE | 2021-12-02 10:12 | EDS_ITS ---
HPI History of Present Illness Chief Complaint: Chest Pain Informant: patient Onset/Context/Timing Onset: Today and Hours (1) Activity at onset: sudden Timing: Continuous Quality: Positive for Burning and Dull Location: Right Chest and Left Chest Worsened By: Nothing Relieved By: Nothing Associated Symptoms: Positive for Nausea, Vomiting, Dyspnea, Lightheadedness, Acid Reflux and Palpitations; Negative for Diaphoresis, Cough or Fever Narrative Narrative: Patient presents with chest pain that began approximate 1 hour prior to arrival. Patient states it began before he started mowing his yard. Patient states he was able to mow his yard but his pain was getting worse throughout the time he was mowing. Patient describes it as dull and burning. Patient states it starts on the left side of his chest but radiates to the right side. Patient states nothing makes it better and nothing makes it worse. Patient admits to some nausea and vomiting. Patient admits to some shortness of breath and palpitations. Patient also admits to some lightheadedness. CVD Risk Factors: Positive for Hypertension and Smoking; Negative for Diabetes, Hypercholesterolemia or Family History 1' </=55 PE Risk Factors: Negative for Recent Travel/Surgery, Recent Immobilization, Prior DVT or PE or Cancer [facility] Medical History Appendicitis Hypertension Home Medications ibuprofen 600 mg tablet 600 mg PO Q8H PRN PRN pain #20 TABLETS 12/02/21 [Rx Last Taken Unknown] lisinopril 20 mg-hydrochlorothiazide 25 mg tablet 1 tab PO DAILY 12/02/21 [History Last Taken Unknown] Allergy/AdvReac Type Severity Reaction Status Date / Time No Known Allergies Allergy Verified 12/02/21 09:51 Surgical History History of appendectomy Social History Smoking Status: Current every day smoker tobacco type: cigarettes ROS ROS ED Constitutional Constitutional ED: Denies chills or fever(s) Eyes Eyes: Denies blurry vision or change in vision ENT ENT ED: Denies rhinorrhea or sore throat Cardiovascular Cardiovascular: Reports chest pain and palpitations Respiratory/Chest Respiratory/Chest: Reports dyspnea; Denies cough Gastrointestinal Gastrointestinal: Reports nausea and vomiting; Denies abdominal pain Genitourinary Genitourinary ED: Denies dysuria or hematuria Musculoskeletal Musculoskeletal: Denies back pain or neck pain Integumentary Denies abscess or rash Neurologic Neurologic: Denies headache(s) or weakness Allergic/Immunologic Allergic/Immunologic ED: Denies mouth swelling or urticaria EXAM Physical Exam Const Vital Signs: 12/02/21 09:51 12/02/21 09:55 12/02/21 10:40 Temperature 97.8 F Temperature Source Oral Pulse Rate 109 H Respiratory Rate 19 H Respiratory Effort Short of Breath Blood Pressure 159/117 H Blood Pressure Mean 131 Pulse Ox 100 Oxygen Delivery Method Room Air Room Air 12/02/21 10:41 Temperature Temperature Source Pulse Rate 98 Respiratory Rate 17 Respiratory Effort Blood Pressure 134/105 H Blood Pressure Mean 114 Pulse Ox 97 Oxygen Delivery Method Room Air Positive well nourished and well developed General Appearance ED: well developed and NAD HEENT normocephalic and atraumatic Eyes PERRL and EOMs intact bilaterally Neck supple and no JVD Chest Wall Chest: tenderness pectoral muscle bilateral Resp normal respiratory effort and clear to auscultation bilaterally Effort and Inspection: Negative for respiratory distress Cardio regular rhythm and no murmurs Rate: tachycardic GI normal to inspection, nondistended, normoactive bowel sounds, soft to palpation, non-tender and non-distended Extremity normal to inspection General Extremety ED: Negative for edema or tenderness General Extremity: Negative for edema Neuro oriented x3, CN's II-XII intact bilaterally and no sensory deficits noted Sensorium / Orientation: awake and alert Motor Exam: strength 5/5 throughout Psych mental status grossly normal Heart Score History: Slightly/Non-Suspicious ECG: Normal Age: </= 45 years Risk Factors: 1 or 2 Risk Factors Troponin: </= Normal Limit Score: 1 MDM MDM MDM Narrative Medical decision making narrative: EKG was obtained. On my interpretation, it showed a sinus tachycardia with a rate of 116. DC interval, QRS interval, and QTc intervals were all normal. [place] was normal. There are no acute ST or T wave changes. Because of the tachycardia, CTA of the chest was obtained. There is no evidence of pulmonary embolism or aortic dissection. This was interpreted by the radiologist and reviewed by myself. CBC shows a hemoglobin of 20.8 and creatinine of 57.1. Basic metabolic profile showed a slightly elevated creatinine of 1.60. Troponin was normal. Patient was given IV fluids, aspirin, and morphine. Patient had minimal relief with the morphine. Patient was given a dose of Dilaudid. 2-hour repeat troponin was also within normal limits. Patient has a HEART score of 1. Patient was advised that this is low risk for acute cardiac event. Patient was advised that this is most likely inflammatory condition. Patient was instructed to follow-up with his primary care physician in 5 to 7 days. Patient was instructed to take Tylenol or ibuprofen as needed for pain. Patient understood and was agreeable with the plan. All questions were answered. Lab Data Labs: Laboratory Results - last 24 hr 12/02/21 12/02/21 12/02/21 09:55 09:55 09:55 WBC 10.6 RBC 5.85 Hgb 20.8 H* Hct 57.1 H MCV 97.6 H MCH 35.6 H MCHC 36.4 H RDW Std Deviation 43.5 RDW Coeff of Sravani 11.9 Plt Count 259 MPV 11.6 Immature Gran % (Auto) 0.300 Neut % (Auto) 57.0 Lymph % (Auto) 34.5 Collin % (Auto) 6.1 Eos % (Auto) 1.2 Baso % (Auto) 0.9 Absolute Neuts (auto) 6.1 Absolute Lymphs (auto) 3.67 Nucleated RBC % 0 Diff Path Review May foll PT Cancelled INR Cancelled APTT Cancelled Sodium 138 Potassium 3.8 Chloride 103 Carbon Dioxide 28.0 Anion Gap 7 BUN 15 Creatinine 1.60 H Estim Creat Clear Calc 60.14 Est GFR (MDRD) Af Amer 61 Est GFR (MDRD) Non-Af 50 L BUN/Creatinine Ratio 9.4 L Glucose 89 Calcium 10.6 H Troponin I High Sens < 3 L 12/02/21 12/02/21 12:37 12:37 WBC RBC Hgb Hct MCV MCH MCHC RDW Std Deviation RDW Coeff of Sravani Plt Count MPV Immature Gran % (Auto) Neut % (Auto) Lymph % (Auto) Collin % (Auto) Eos % (Auto) Baso % (Auto) Absolute Neuts (auto) Absolute Lymphs (auto) Nucleated RBC % Diff Path Review PT 13.4 INR 1.0 APTT 29.3 Sodium Potassium Chloride Carbon Dioxide Anion Gap BUN Creatinine Estim Creat Clear Calc Est GFR (MDRD) Af Amer Est GFR (MDRD) Non-Af BUN/Creatinine Ratio Glucose Calcium Troponin I High Sens 5 Radiography Diagnostic Testing: Clinical Impression(s) from Imaging Studies Chest CTA 12/02/21 10:16 IMPRESSION: Normal CTA chest examination, without a demonstrated pulmonary embolism or arterial dissection. Electronically Signed: Montez Urena MD at 11:46 EDT , EKG Initial EKG: Attestation: I personally reviewed and interpreted this EKG as follows: Interpretation: No Acute Injury Pattern and Sinus Tachycardia (116) Prior EKG tracings: available for review Prior: Unchanged (06/30/2018) Discharge Plan Triage Chief Complaint: Chest Pain ED Provider: Rhett Tyler Dx/Rx/DC Orders Clinical Impression: Chest pain of uncertain etiology, Dehydration Instructions: ED Chest Pain, Uncertain Cause, ED Dehydration (Adult) Prescriptions: New ibuprofen 600 mg tablet 600 mg PO Q8H PRN PRN (Reason: pain) Qty: 20 0RF No Action lisinopril-hydrochlorothiazide 20-25 mg tablet 1 tab PO DAILY Label Comments: take 1 tablet by mouth once daily Primary Care Provider: Ena Holloway Referrals: Ena Holloway MD [Primary Care Provider] - 3-5 Days Disposition Disposition: Home, Self Care
--- NOTE | 2021-12-02 10:16 | EKG12_ITS ---
Test Reason : CP Blood Pressure : / mmHG Vent. Rate : 116 BPM Atrial Rate : 117 BPM P-R Int : 172 ms QRS Dur : 076 ms QT Int : 308 ms P-R-T Axes : 068 039 068 degrees QTc Int : 428 ms Sinus tachycardia Otherwise normal ECG Confirmed by GENTRY GUERRA, DAVID ([id number]), acquisition editor BRIAN CASTELLANOS ([id number]) on 12/03/2021 7:42:41 AM Referred By: VLADIMIR/JOHNSON Confirmed By:DAVID RINALDI MD
--- NOTE | 2021-12-02 10:16 | CT_ITS ---
STUDY: CTA CHEST REASON FOR EXAM: Male, 41 years old. Dyspnea RADIATION DOSAGE (If Supplied By Facility): CTDIvol = ( 13.23 ) mGy, DLP = ( 407.00 ) mGycm TECHNIQUE: The examination was performed with the intravenous administration of IV 100mL Isovue-370. Post-processing of the angiographic images was performed, with multiplanar reformation and 3D reconstruction. Individualized dose optimization techniques were used for this CT. COMPARISON: None. FINDINGS: Normal enhancement of the main pulmonary artery and right and left pulmonary arteries. Normal enhancement of the bilateral peripheral pulmonary arteries. There is no demonstrated pulmonary embolism. Normal thoracic aorta and visualized great vessels. There is no demonstrated aortic dissection. Normal heart and pericardium. Normal mediastinum. Normal hilar regions. Normal visualized trachea and bronchi. The lungs are well expanded. Normal pulmonary parenchyma. Normal pleura. Normal chest wall structures. Normal osseous structures. Normal visualized upper abdomen. CT/CTA Chest W/WO Contrast IMPRESSION: Normal CTA chest examination, without a demonstrated pulmonary embolism or arterial dissection. Electronically Signed: Montez Urena MD at 11:46 EDT ,
[2021-12-02 10:29] LABS: Absolute Lymphocyte Count 3.67 X10^3/uL (0.83-4.51); Absolute Neutrophil Count 6.1 X10^3/uL (2.0-7.7); Basophil% 0.9 % (0-1); Eosinophil# 0.13 X10^3/uL; Eosinophils% 1.2 % (0-5); Lymphocyte # 3.67 X10^3/ul (0.83-4.51); Lymphocyte % 34.5 % (19-41); Mean Corp Hgb Conc 36.4 g/dL (32-36); Mean Corpuscular Hgb 35.6 pg (27.0-32.0); Mean Corpuscular Volume 97.6 fL (80-94); Mean Platelet Vol. 11.6 fl (6.2-12.0); Monocyte# 0.65 X10^3/uL; Monocyte% 6.1 % (0-10); NRBC Flagged by Analyzer 0 % (0-5); Neutrophil # 6.05 X10^3/uL (2.7-7.7); Platelet Count 259 K/mm3 (150-450); RBC Distribution Width CV 11.9 % (11.6-14.6); RBC Distribution Width SD 43.5 fl (35.1-43.9); Red Blood Count 5.85 M/mm3 (4.6-6.2); White Blood Count 10.6 K/mm3 (4.4-11.0)
[2021-12-02] MEDS: Morphine 4 MG/ML Syringe IV (10:35)
[2021-12-02] MEDS: Aspirin 81 MG TAB.CHEW 324 MG PO (10:35)
[2021-12-02 10:41] VITALS: BP 134/105; PULSE 98; RESP 17; O2SAT 97
[2021-12-02 10:43] LABS: Hematocrit 57.1 % (40-54)
[2021-12-02 10:45] LABS: Hemoglobin 20.8 g/dL (13.0-16.5)
[2021-12-02 10:46] LABS: Anion Gap 7 (5-15); BUN 15 mg/dL (7-18); BUN/Creat Ratio 9.4 RATIO (10-20); Calcium,Total 10.6 mg/dL (8.5-10.1); Chloride 103 mmol/L (98-107); EST Glomerular Filtration Rate 50 mL/min (>60); Est Glom Filt Rate - Afr Amer 61 mL/min (>60); Estimated Creatinine Clearance 60.14 ml/min; Glucose 89 mg/dL (74-106); Potassium 3.8 mmol/L (3.5-5.1); Sodium Level 138 mmol/L (136-145); Troponin-I HS (w/2H Reflex) < 3 pg/mL (3.0-78.0)
[2021-12-02] MEDS: 0.9% Normal Saline 1,000 ML 1000 ML IV ×2 (11:15→12:16)
[2021-12-02] MEDS: HYDROmorphone 1 MG/ML Syringe 0.5 MG IV (11:33)
[2021-12-02 12:24] LABS: Reflex Troponin-HS? (from REC) Y
[2021-12-02 12:56] LABS: Partial Thromboplast Time 29.3 Seconds (24.1-36.2); Prothrombin Time (Protime)PT. 13.4 SECONDS (11.7-14.9)
[2021-12-02 13:03] LABS: Troponin-I HS 5 pg/mL (3.0-78.0)
[2021-12-03 13:22] LABS: Pathologist Review Reviewed
== END 2021-12-02 13:16 | disposition home or self-care (01) ==
PROVIDERS: Emergency Provider Emergency Medicine; Visit Provider Emergency Medicine
DX: R07.9 Chest pain, unspecified (principal); E86.0 Dehydration; I10 Essential (primary) hypertension; F17.210 Nicotine dependence, cigarettes, uncomplicated; Z79.899 Other long term (current) drug therapy
CPT/HCPCS: 71275; 80048; 84484; 85025; 85610; 85730; 93005; 96361; 96374; 96375; 99285; J7030; J7040; Q9967; A4216

== ENCOUNTER 2021-12-31 15:36 | Inpatient (IN) | payer MEDICAID, SELFPAY ==
[2021-12-31 15:38] VITALS: BP 150/106; PULSE 97; RESP 16; TEMP 36.2; O2SAT 95; BMI 30.3
--- NOTE | 2021-12-31 16:02 | CT_ITS ---
STUDY: CT Abdomen And Pelvis W/ Contrast Injection 12/31/2021 6:24 PM REASON FOR EXAM: Male, 41 years old. ABDOMINAL PAIN abd pain, GI bleed -- IV PO Contrast TECHNIQUE: Transaxial images were obtained with oral contrast, and with Oral and amp; IV Gastrografin and amp; 100mL Isovue-300 intravenous contrast. Individualized dose optimization techniques were used for this CT. COMPARISON: 02.05.18 FINDINGS: The visualized lung bases are unremarkable. The visualized portions of the heart are within normal limits. There is decreased attenuation of the liver consistent with steatosis. Unremarkable gallbladder and extrahepatic biliary system. Unremarkable spleen. There is diffuse enlargement of the pancreas with quincy-pancreatic edema suggesting acute pancreatitis.There is hepatomegaly with diffuse hepatic enlargement. Unremarkable bilateral adrenal glands. No acute findings of the right kidney. No acute findings of the left kidney. Unremarkable visualized stomach. Unremarkable small intestine. There are multiple colonic diverticula consistent with diverticulosis. There are surgical clips in the region of the appendix consistent with a prior appendectomy. There are no acute findings of the abdominal aorta. Unremarkable inferior vena cava. Subcentimeter mesenteric lymph nodes. Unremarkable urinary bladder. There are bilateral inguinal hernias containing fat. There is no bowel involvement. There is no incarceration. There is no findings suggesting that this is causing a bowel obstruction. There are diffuse degenerative changes of the visualized lumbar spine. CT/Abdomen/Pelvis WITH Contrast IMPRESSION: (NOT LISTED IN ORDER OF SIGNIFICANCE) There is acute pancreatitis. Fatty liver. Enlarged liver. There are multiple colonic diverticula consistent with diverticulosis. Other findings as above. Electronically Signed: Leo Chairez MD at 18:32 EDT ,
--- NOTE | 2021-12-31 16:03 | EX.ED.DYSGE1 ---
HPI History of Present Illness Chief Complaint: GI Bleed Informant: patient Onset/Context/Timing Onset: Weeks (2 weeks) Context: Gradual Onset Current Severity: Moderate Maximum Severity: Moderate Narrative Narrative: Patient presents with 2-week history of abdominal pain and blood in stools. He states it started out as a small amount of blood mixed with the stool. Now is passing straight blood with clots. He points to the supraumbilical area and left lower quadrant and describing his areas of pain. He denies fever or chills. He has no known history of diverticula, ulcerative colitis, or Crohn's disease. [facility] Medical History Hypertension Home Medications lisinopril 20 mg-hydrochlorothiazide 25 mg tablet 1 tab PO DAILY 12/02/21 [History Last Taken Unknown] Allergy/AdvReac Type Severity Reaction Status Date / Time No Known Allergies Allergy Verified 12/31/21 15:38 Surgical History History of appendectomy Social History Smoking Status: Current every day smoker tobacco type: cigarettes ROS ROS ED Constitutional Constitutional ED: Denies chills or fever(s) Eyes Eyes: Denies change in vision or discharge from eye(s) ENT ENT ED: Denies discharge from eye(s), rhinorrhea or sore throat Cardiovascular Cardiovascular: Denies chest pain or palpitations Respiratory/Chest Respiratory/Chest: Denies cough or dyspnea Gastrointestinal Gastrointestinal: Reports abdominal pain and other Details: Hematochezia ; Denies diarrhea, nausea or vomiting Genitourinary Genitourinary ED: Denies dysuria Musculoskeletal Musculoskeletal: Denies back pain or extremity pain Integumentary Denies Abrasions or rash Neurologic Neurologic: Denies headache(s) or weakness Psychiatric Psychiatric: Denies anxiety or depression Allergic/Immunologic Allergic/Immunologic ED: Denies lip swelling or urticaria EXAM Physical Exam Const Vital Signs: 12/31/21 15:38 Temperature 97.2 F L Temperature Source Temporal Pulse Rate 97 Respiratory Rate 16 Blood Pressure 150/106 H Blood Pressure Mean 120 Pulse Ox 95 Oxygen Delivery Method Room Air Positive well nourished and well developed General Appearance ED: well developed HEENT Reports normocephalic and head/scalp atraumatic Eyes PERRL and EOMs intact bilaterally Neck supple Chest Wall inspection of chest normal and palpation of chest normal Resp normal respiratory effort and clear to auscultation bilaterally Cardio regular rate and regular rhythm GI GI Narrative: Left lower quadrant tenderness to palpation. No guarding or rebound. Hypoactive bowel sounds noted. Palpation: soft Extremity normal to inspection Neuro oriented x3 and no sensory deficits noted Sensorium / Orientation: alert Motor Exam: strength 5/5 throughout Psych mental status grossly normal Skin no rashes or lesions noted MDM MDM MDM Narrative Medical decision making narrative: Lab work obtained along with CT scan with p.o. and IV contrast. IV fluids ordered. Patient given dose of morphine and Zofran for pain control. Lab Data Attestation: I reviewed the patient's lab results. Labs: Laboratory Results - last 24 hr 12/31/21 12/31/21 12/31/21 16:05 16:05 16:05 WBC 9.1 RBC 4.91 Hgb 17.0 H Hct 48.2 MCV 98.2 H MCH 34.6 H MCHC 35.3 RDW Std Deviation 44.1 H RDW Coeff of Sravani 12.1 Plt Count 177 MPV 12.6 H Immature Gran % (Auto) 0.400 Neut % (Auto) 59.2 Lymph % (Auto) 31.3 [place] % (Auto) 6.9 Eos % (Auto) 1.5 Baso % (Auto) 0.7 Absolute Neuts (auto) 5.4 Absolute Lymphs (auto) 2.86 Nucleated RBC % 0 PT 12.7 INR 1.0 APTT 31.5 Sodium 140 Potassium 3.6 Chloride 106 Carbon Dioxide 26.0 Anion Gap 8 BUN 22 H Creatinine 1.28 Estim Creat Clear Calc 77.63 Est GFR (MDRD) Af Amer 79 Est GFR (MDRD) Non-Af 65 BUN/Creatinine Ratio 17.2 Glucose 85 Calcium 9.6 Total Bilirubin 0.60 Direct Bilirubin 0.09 AST 33 ALT 66 H Alkaline Phosphatase 56 Total Protein 7.6 Albumin 4.3 Globulin 3.3 Lipase 12/31/21 16:05 WBC RBC Hgb Hct MCV MCH MCHC RDW Std Deviation RDW Coeff of Sravani Plt Count MPV Immature Gran % (Auto) Neut % (Auto) Lymph % (Auto) [place] % (Auto) Eos % (Auto) Baso % (Auto) Absolute Neuts (auto) Absolute Lymphs (auto) Nucleated RBC % PT INR APTT Sodium Potassium Chloride Carbon Dioxide Anion Gap BUN Creatinine Estim Creat Clear Calc Est GFR (MDRD) Af Amer Est GFR (MDRD) Non-Af BUN/Creatinine Ratio Glucose Calcium Total Bilirubin Direct Bilirubin AST ALT Alkaline Phosphatase Total Protein Albumin Globulin Lipase 134 Radiography Diagnostic Testing: Clinical Impression(s) from Imaging Studies Abdomen/Pelvis CT 12/31/21 16:02 IMPRESSION: (NOT LISTED IN ORDER OF SIGNIFICANCE) There is acute pancreatitis. Fatty liver. Enlarged liver. There are multiple colonic diverticula consistent with diverticulosis. Other findings as above. Electronically Signed: Leo Chairez MD at 18:32 EDT , Treatment and Re-Evaluation Narrative: CBC reveals normal white count with a hemoglobin of 17.0. Chemistry studies reveal a BUN of 22. Coags are unremarkable. LFTs significant only for an ALT of 66. CT scan of the abdomen pelvis obtained that shows evidence of acute pancreatitis. Colonic diverticula are noted without diverticulitis. In light of the CT reading of pancreatitis the lipase is added and is normal. I spoke with Charline Iniguez NP for Dr. Barfield. She did recommend patient be admitted overnight for scope tomorrow. This was discussed with patient and at bedside. Patient has been up to the bathroom multiple times passing bright red blood with large clots. Discharge Plan Triage Chief Complaint: GI Bleed ED Provider: Divya Nobles Dx/Rx/DC Orders Clinical Impression: GI bleed Prescriptions: No Action lisinopril-hydrochlorothiazide 20-25 mg tablet 1 tab PO DAILY Label Comments: take 1 tablet by mouth once daily Primary Care Provider: Ena Holloway Referrals: Ena Holloway MD [Primary Care Provider] - Disposition Disposition: Acute Care Hospital [facility]
[2021-12-31] MEDS: Morphine 4 MG/ML Syringe IV ×2 (16:08→21:17)
[2021-12-31] MEDS: Ondansetron 4 MG/2 ML Vial IV ×2 (16:08→21:18)
[2021-12-31] MEDS: 0.9% Normal Saline 1,000 ML 150 ML IV (16:11)
[2021-12-31 16:48] LABS: Partial Thromboplast Time 31.5 Seconds (24.1-36.2); Prothrombin Time (Protime)PT. 12.7 SECONDS (11.7-14.9)
[2021-12-31 17:02] LABS: AST(SGOT) 33 U/L (15-37); Alanine Aminotransfer ALT/SGPT 66 U/L (16-61); Albumin, Serum 4.3 g/dL (3.2-5.0); Alkaline Phosphatase 56 U/L (45-117); Anion Gap 8 (5-15); BUN 22 mg/dL (7-18); BUN/Creat Ratio 17.2 RATIO (10-20); Bilirubin, Direct 0.09 mg/dL (0.00-0.30); Calcium,Total 9.6 mg/dL (8.5-10.1); Chloride 106 mmol/L (98-107); Creatinine, Serum 1.28 mg/dL (0.70-1.30); EST Glomerular Filtration Rate 65 mL/min (>60); Est Glom Filt Rate - Afr Amer 79 mL/min (>60); Estimated Creatinine Clearance 77.63 ml/min; Globulin 3.3 g/dL (2.2-4.2); Glucose 85 mg/dL (74-106); Potassium 3.6 mmol/L (3.5-5.1); Protein, Total 7.6 g/dL (6.4-8.2); Sodium Level 140 mmol/L (136-145)
[2021-12-31 17:07] LABS: Absolute Lymphocyte Count 2.86 X10^3/uL (0.83-4.51); Absolute Neutrophil Count 5.4 X10^3/uL (2.0-7.7); Basophil# 0.06 X10^3/uL; Basophil% 0.7 % (0-1); Eosinophil# 0.14 X10^3/uL; Eosinophils% 1.5 % (0-5); Hematocrit 48.2 % (40-54); Lymphocyte # 2.86 X10^3/ul (0.83-4.51); Lymphocyte % 31.3 % (19-41); Mean Corp Hgb Conc 35.3 g/dL (32-36); Mean Corpuscular Hgb 34.6 pg (27.0-32.0); Mean Corpuscular Volume 98.2 fL (80-94); Mean Platelet Vol. 12.6 fl (6.2-12.0); Monocyte# 0.63 X10^3/uL; Monocyte% 6.9 % (0-10); NRBC Flagged by Analyzer 0 % (0-5); Neutrophil # 5.41 X10^3/uL (2.7-7.7); Neutrophil % 59.2 % (47-70); Platelet Count 177 K/mm3 (150-450); RBC Distribution Width CV 12.1 % (11.6-14.6); RBC Distribution Width SD 44.1 fl (35.1-43.9); Red Blood Count 4.91 M/mm3 (4.6-6.2); White Blood Count 9.1 K/mm3 (4.4-11.0)
[2021-12-31 19:36] LABS: Lipase 134 U/L (73-393)
--- NOTE | 2021-12-31 20:43 | HP.PCM.HOS_ITS ---
HPI - General General Date of Admission: 12/31/21 Date of Service: 12/31/21 Chief Complaint: Blood red blood per rectum HPI Narrative ANDREW SHAH, is a 41 M with a significant history of tobacco abuse and hypertension who presents emergency department with bright red blood per rectum that started about 2 weeks ago. Initially his stool was light red but as time went on it became frankly bloody and with clots. He reports increased size of clots with time. Each day he has about 7-8 episodes of bright red blood per rectum. He has only minimal stools. He denies any nausea or vomiting. He reports excruciating pain in lower abdomen with left worse than right. He reports headaches that started about 2 weeks ago since his bloody discharge begun. [facility] Medical History Hypertension Home Medications lisinopril 20 mg-hydrochlorothiazide 25 mg tablet 1 tab PO DAILY 12/02/21 [History Last Taken Unknown] Allergy/AdvReac Type Severity Reaction Status Date / Time No Known Allergies Allergy Verified 12/31/21 15:38 Family History Other Liver cancer Ovarian cancer Surgical History History of appendectomy Social History Smoking Status: Current every day smoker tobacco type: cigarettes ROS ROS Narrative Pertinent positives and pertinent negatives as noted in HPI. All other systems were reviewed and are negative Vital Signs Vital Signs Vital Signs: 12/31/21 15:38 Temperature 97.2 F L Temperature Source Temporal Pulse Rate 97 Respiratory Rate 16 Blood Pressure 150/106 H Blood Pressure Mean 120 Pulse Ox 95 Oxygen Delivery Method Room Air Weight Weight: 95.8 kg Body Mass Index (BMI) 30.3 Physical Exam Narrative Physical exam: General: Well-nourished, well-developed. Head: Normocephalic, atraumatic, no tenderness Eyes: Vision is grossly intact. EOMI ENT, no trauma, dry mucous membranes, no rhinorrhea Neck: Nontender, full range of motion, no spinal tenderness, deformities, step- off CVS: Regular rate and rhythm. S1-S2 present. No murmur, gallop or rub. Respiratory : clear to auscultation bilaterally, chest wall nontender, no wheezing Abdomen: Soft, mildly tender abdomen, nondistended, normal bowel sounds, no mas ses : Deferred Back: Nontender, no CVA tenderness, no midline spinal tenderness. Extremities: Nontender full range of motion, no trauma Skin: Normal color, no trauma, abrasions Neuro: Alert, oriented, cranial nerves II through XII grossly intact. Psychiatry: Normal mood. Normal affect. Not depressed. Not anxious. Results Lab / Micro Data Result Diagrams: 12/31/21 16:05 12/31/21 16:05 Labs: Laboratory Results - last 24 hr 12/31/21 16:05: WBC 9.1, RBC 4.91, Hgb 17.0 H, Hct 48.2, MCV 98.2 H, MCH 34.6 H, MCHC 35.3, RDW Std Deviation 44.1 H, RDW Coeff of Sravani 12.1, Plt Count 177, MPV 12.6 H, Immature Gran % (Auto) 0.400, Neut % (Auto) 59.2, Lymph % (Auto) 31.3, [place] % (Auto) 6.9, Eos % (Auto) 1.5, Baso % (Auto) 0.7, Absolute Neuts (auto) 5.4, Absolute Lymphs (auto) 2.86, Nucleated RBC % 0 12/31/21 16:05: PT 12.7, INR 1.0, APTT 31.5 12/31/21 16:05: Sodium 140, Potassium 3.6, Chloride 106, Carbon Dioxide 26.0, Anion Gap 8, BUN 22 H, Creatinine 1.28, Estim Creat Clear Calc 77.63, Est GFR (MDRD) Af Amer 79, Est GFR (MDRD) Non-Af 65, BUN/Creatinine Ratio 17.2, Glucose 85, Calcium 9.6, Total Bilirubin 0.60, Direct Bilirubin 0.09, AST 33, ALT 66 H, Alkaline Phosphatase 56, Total Protein 7.6, Albumin 4.3, Globulin 3.3 12/31/21 16:05: Lipase 134 Radiology Impression Abdomen/Pelvis CT 12/31/21 16:02 IMPRESSION: (NOT LISTED IN ORDER OF SIGNIFICANCE) There is acute pancreatitis. Fatty liver. Enlarged liver. There are multiple colonic diverticula consistent with diverticulosis. Other findings as above. Electronically Signed: Leo Chairez MD at 18:32 EDT , Assessment & Plan Assessment/Plan (1) GI bleed: (2) Dehydration: PLAN: Plan Acute GI bleed Likely lower GI bleed as patient is not hypotensive in the setting of 2 weeks of bleeding Hemoglobin presentation was 17.0. His hemoglobin on 12/02/[address] abdomen and pelvis was visualized and independently interpreted. Per radiologist there is acute pancreatitis. Per my independent review image did not show acute pancreatitis. Also patient's symptom is not consistent with acute pancreatitis. Per radiologist there is a fatty liver, enlarged liver, multiple colonic diverticula consistent with diverticulosis which I agree. Trend H&H. IV morphine for pain. Maintenance IV fluids ordered. Emergency department I discussed the case of a GI who recommended possible scope. We will keep patient n.p.o. Dehydration Dry mucous membrane Elevated BUN of 22 compared to previous. Trend BMP. Hypertension Blood pressure is not within goal Lisinopril and hydrochlorothiazide held as patient will be kept n.p.o. after midnight. As needed hydralazine ordered. Trend blood pressure and adjust blood pressure medications. DVT Prophylaxis: SCD ordered. Charges/Coding Visit Charges Inpatient E&M: 33857 Init Hosp L2
[2021-12-31 21:21] VITALS: BP 141/104; PULSE 84; RESP 16; TEMP 36.7; O2SAT 95
[2021-12-31 21:47] VITALS: BMI 29.4
[2021-12-31 21:48] VITALS: BP 143/95; PULSE 80; RESP 18; TEMP 36.5; O2SAT 97
[2021-12-31] MEDS: 0.9% Normal Saline 1,000 ML 100 ML IV (22:18)
[2021-12-31 23:37] LABS: Hematocrit 44.3 % (40-54); Hemoglobin 15.9 g/dL (13.0-16.5)
[2022-01-01] MEDS: Morphine 4 MG/ML Syringe IV ×6 (00:27→21:53)
[2022-01-01 04:00] VITALS: BP 133/88; PULSE 71; RESP 18; TEMP 36.7; O2SAT 96
[2022-01-01] MEDS: Ondansetron 4 MG/2 ML Vial IV ×2 (05:41→10:30)
[2022-01-01 05:47] LABS: Hematocrit 41.1 % (40-54); Hemoglobin 15.2 g/dL (13.0-16.5)
--- NOTE | 2022-01-01 06:00 | EKG12_ITS ---
Test Reason : AM EKG Blood Pressure : / mmHG Vent. Rate : 064 BPM Atrial Rate : 064 BPM P-R Int : 200 ms QRS Dur : 086 ms QT Int : 444 ms P-R-T Axes : 037 022 039 degrees QTc Int : 458 ms Normal sinus rhythm Normal ECG When compared with ECG of 02-DEC-2021 09:50, Vent. rate has decreased BY 52 BPM Confirmed by LUDIVINA GUERRA, PHILLIP ([id number]), slot editor BRIAN CASTELLANOS ([id number]) on 01/02/2022 9:50:23 AM Referred By: BRENNAN Confirmed By:PHILLIP FLORENCE MD
[2022-01-01 06:21] LABS: Anion Gap 5 (5-15); BUN 16 mg/dL (7-18); BUN/Creat Ratio 13.6 RATIO (10-20); Calcium,Total 8.1 mg/dL (8.5-10.1); Chloride 110 mmol/L (98-107); Creatinine, Serum 1.18 mg/dL (0.70-1.30); EST Glomerular Filtration Rate 72 mL/min (>60); Est Glom Filt Rate - Afr Amer 87 mL/min (>60); Glucose 83 mg/dL (74-106); Potassium 3.6 mmol/L (3.5-5.1); Sodium Level 141 mmol/L (136-145)
[2022-01-01] MEDS: 0.9% Normal Saline 1,000 ML 100 ML IV (07:49)
[2022-01-01] MEDS: 0.9% Saline Lock 10 ML Syringe IV ×3 (07:52→13:07)
[2022-01-01 08:00] VITALS: BP 122/72; PULSE 87; RESP 16; TEMP 36.6; O2SAT 87
[2022-01-01 08:56] VITALS: BP 122/72; PULSE 87; RESP 16; TEMP 36.5; O2SAT 97
[2022-01-01 10:30] LABS: Hematocrit 41.1 % (40-54); Hemoglobin 14.6 g/dL (13.0-16.5)
--- NOTE | 2022-01-01 10:43 | PN.HOSP_ITS ---
Documented by User: Zabrina Henry NP, [facility] 01/01/22 10:52 Subjective Subjective Patient seen and examined. States he has ongoing significant rectal bleeding for 2 weeks. Has not had a bowel movement in the past few days. Denies significant abdominal pain. Reports nausea this morning. Denies GI history. Objective Data Objective Data Vital Signs: Vital Signs Temp Pulse Resp BP Pulse Ox O2 Del Method 97.7 F L 87 16 122/72 H 97 Room Air 01/01/22 08:56 01/01/22 08:56 01/01/22 08:56 01/01/22 08:56 01/01/22 08:56 01/01/22 08:56 Oxygen Delivery Method Room Air Weight: 205 lb Body Mass Index (BMI) 29.4 Intake & Output: Intake and Output for Last 24 Hours 12/30/21 12/31/21 01/01/22 23:59 23:59 23:59 Intake Total 1137.5 / 1137.5 951.67 / 951.67 Balance 1137.5 / 1137.5 951.67 / 951.67 Lab / Micro Data Result Diagrams: 01/01/22 10:16 01/01/22 05:30 Labs: Laboratory Results - last 24 hr 12/31/21 16:05: WBC 9.1, RBC 4.91, Hgb 17.0 H, Hct 48.2, MCV 98.2 H, MCH 34.6 H, MCHC 35.3, RDW Std Deviation 44.1 H, RDW Coeff of Sravani 12.1, Plt Count 177, MPV 12.6 H, Immature Gran % (Auto) 0.400, Neut % (Auto) 59.2, Lymph % (Auto) 31.3, [place] % (Auto) 6.9, Eos % (Auto) 1.5, Baso % (Auto) 0.7, Absolute Neuts (auto) 5.4, Absolute Lymphs (auto) 2.86, Nucleated RBC % 0 12/31/21 16:05: PT 12.7, INR 1.0, APTT 31.5 12/31/21 16:05: Sodium 140, Potassium 3.6, Chloride 106, Carbon Dioxide 26.0, Anion Gap 8, BUN 22 H, Creatinine 1.28, Estim Creat Clear Calc 77.63, Est GFR (MDRD) Af Amer 79, Est GFR (MDRD) Non-Af 65, BUN/Creatinine Ratio 17.2, Glucose 85, Calcium 9.6, Total Bilirubin 0.60, Direct Bilirubin 0.09, AST 33, ALT 66 H, Alkaline Phosphatase 56, Total Protein 7.6, Albumin 4.3, Globulin 3.3 12/31/21 16:05: Lipase 134 12/31/21 23:00: Hgb 15.9, Hct 44.3 01/01/22 05:30: Hgb 15.2, Hct 41.1 01/01/22 05:30: Sodium 141, Potassium 3.6, Chloride 110 H, Carbon Dioxide 26.0, Anion Gap 5, BUN 16, Creatinine 1.18, Estim Creat Clear Calc 84.20, Est GFR (MDRD) Af Amer 87, Est GFR (MDRD) Non-Af 72, BUN/Creatinine Ratio 13.6, Glucose 83, Calcium 8.1 L 01/01/22 10:16: Hgb 14.6, Hct 41.1 Radiography Diagnostic Testing: Radiology Impression Abdomen/Pelvis CT 12/31/21 16:02 IMPRESSION: (NOT LISTED IN ORDER OF SIGNIFICANCE) There is acute pancreatitis. Fatty liver. Enlarged liver. There are multiple colonic diverticula consistent with diverticulosis. Other findings as above. Electronically Signed: Leo Chairez MD at 18:32 EDT Reading Location ID and State: [facility] [place] [facility]– [place] , Service support , Physical Exam Const alert and oriented x3 HEENT normocephalic and moist oral mucous membranes Eyes PERRL, EOMs intact bilaterally and conjunctivae normal Neck no lymphadenopathy Resp normal respiratory effort and clear to auscultation bilaterally Cardio regular rate, regular rhythm and no murmurs Peripheral Pulses: pulses 2+ throughout GI normal to inspection, nondistended, normoactive bowel sounds, non-tender and non-distended Extremity normal to inspection Skin no rashes or lesions noted Lesions: no lesions Rashes: no rashes Trauma: no lacerations or abrasions Neuro CN's II-XII intact bilaterally, no focal motor deficits, no sensory deficits noted and deep tendon reflexes 2+ bilaterally Psych mental status grossly normal and affect normal Assessment & Plan Assessment/Plan (1) GI bleed: PLAN: Plan 1. Acute GI bleed-hemoglobin stable. GI consulted for further evaluation. Bowel prep ordered. Plan for scope. Repeat CBC in a.m. 2. Hypertension-stable, continue home regimen. DVT prophylaxis- SCDs This patient was seen by LUCIANO Agustin under the supervision of Dr. Ly. Time spent examining patient, reviewing data and subsequent management of care: 14 minutes Documented by User: Dr. Kyle Ly, 01/01/22 16:55 Objective Data Lab / Micro Data Result Diagrams: 01/01/22 10:16 01/01/22 05:30 Assessment & Plan Assessment/Plan (1) GI bleed: Charges/Coding Addendum Addendum: Patient was seen and examined independently of Zabrina Henry today, he was admitted yesterday for bright red rectal bleeding, he also complained of abdominal discomfort over the last 2 weeks. Patient admits to seeing clots in the stool over the last couple of weeks. Patient's medical issues include ess ential hypertension and increased hemoglobin, patient states he has not seen his physician yet concerning his high hemoglobin level. Patient admits to smoking 1/4 pack of cigarettes per day. On examination he appeared in good health and spirits. Vital signs as documented. Skin warm and dry and without overt rashes. Neck without JVD, neck was supple, trachea midline, thyroid was normal. Lungs clear bilaterally, normal air movement was noted. Heart exam notable for regular rhythm, normal sounds and absence of murmurs, rubs or gallops. Abdomen unremarkable and without evidence of organomegaly, masses, or abdominal aortic enlargement. Bowel sounds are present, abdomen is not distended. Extremities nonedematous, no cyanosis was noted, no clubbing was noted. Neuro: Cranial nerves II through XII are grossly intact, no focal motor deficits were noted, sensation to light touch and pinprick intact, motor exam 5/5 throughout. Psych: Patient is alert and oriented x3, he does not appear anxious or depressed, he does not appear agitated. Impression: #1 bright red rectal bleeding-etiology unclear, patient will undergo a colonoscopy tomorrow, I talked with gastroenterology concerning this, patient will be prepped starting this afternoon. Patient's hemoglobin has remained in the normal range at this time. I will stop the patient's fluids. #2 essential hypertension-patient will remain on his present medication #3 increased hemoglobin-etiology unclear, patient is a smoker, he will need a work-up as an outpatient concerning this. I reviewed Zabrina Henry's progress note including her medical assessment and plan of care and with the above additions endorse it. Total clinical time spent by myself addressing the patient's medical issues, reviewing the data, and collaborating with patient's care team: 36 minutes Visit Charges Inpatient E&M: 72224 Subs Hosp L2
--- NOTE | 2022-01-01 10:45 | CASEMGMT ---
ABHINAV CRUZ Face to Face with patient for initial transition planning/care coordination assessment. RN NANCY introduced self and role at [facility]. Patient lying in bed, alert and oriented, significant other at bedside. Patient willing to participate in assessment and is able to answer all questions appropriately. Care providers, pharmacy, and demographics verified. Patient wishes to discharge home, denies need for home health at this time. Patient states he has no further needs or concerns at this time. CM to follow for discharge planning needs that may arise. PCP: Amie Specialists: none Preferred Pharmacy: [facility]; [facility] retail at discharge. Insurance: [facility] Prescription Benefit: yes Living Will/HPOA: none LNOK: parents, significant other Living Arrangements: Patient lives with significant other in an apartment on the first floor, 3 steps and railing to enter the home. Patient states he is independent at home. Transportation: significant other DME/HHC: Patient states he has crutches at home. No previous HHC or SNF. Patient states he smokes 1/2 PPD of cigarettes, drinks alcohol once weekly, and smoke marijuana occasionally. Patient denies wanted resources for cessation. Disposition Plan: Patient to discharge home with family support and follow-up plans in place. Nancy ZARATE, RN, CM
[2022-01-01] MEDS: Acetaminophen 325 MG Tablet 650 MG PO (11:06)
[2022-01-01] MEDS: Bisacodyl 5 MG Tablet 20 MG PO (13:11)
[2022-01-01 15:30] VITALS: BP 131/97; PULSE 66; RESP 16; TEMP 36.4; O2SAT 93
[2022-01-01] MEDS: Polyethylene Glycol 3350 BOWEL PREP PO (15:34)
[2022-01-01 16:56] LABS: Hematocrit 40.4 % (40-54); Hemoglobin 14.9 g/dL (13.0-16.5)
--- NOTE | 2022-01-01 17:07 | CON.PCM_ITS ---
Assessment & Plan Assessment/Plan (1) GI bleed: PLAN: The differential diagnosis for GI bleed would be diverticular bleed, ischemic colitis, also colitis, less likely Crohn's disease, less likely upper GI bleed with rapid transit. We will evaluate his colon for any abnormalities of until level of the terminal ileum. He was explained alternatives, risk, benefits include not withstanding bleeding, infection, sepsis, perforation, need for internal . He will have an ASA of 2. (2) Pancreatitis: PLAN: He did not have any signs of chronic pancreatitis at this time. I will check an ESR, CRP. He may need to get further imaging to see if this resolves. HPI Consult Data Date of Consult: 01/01/22 HPI Narrative Reason for Consultation: GI bleed HPI Narrative: ANDREW SHAH, is a 41 M who presents with 2-week history of abdominal pain and blood in stools.? He states it started out as a small amount of blood mixed with the stool.? Now is passing straight blood with clots.? He points to the supraumbilical area and left lower quadrant and describing his areas of pain.? He denies fever or chills.? He has no known history of diverticula, ulcerative colitis, or Crohn's disease. CT scan abdomen pelvis was as follows: There is decreased attenuation of the liver consistent with steatosis. Unremarkable gallbladder and extrahepatic biliary system.? Unremarkable spleen.? There is diffuse enlargement of the pancreas with quincy-pancreatic edema suggesting acute pancreatitis.There is hepatomegaly with diffuse hepatic enlargement. Unremarkable bilateral adrenal glands. No acute findings of the right kidney. No acute findings of the left kidney. Unremarkable visualized stomach.? Unremarkable small intestine. There are multiple colonic diverticula consistent with diverticulosis. There are surgical clips in the region of the appendix consistent with a prior appendectomy. There are no acute findings of the abdominal aorta.? Unremarkable inferior vena cava.? Subcentimeter mesenteric lymph nodes. Unremarkable urinary bladder. There are bilateral inguinal hernias containing fat.? There is no bowel involvement. There is no incarceration. There is no findings suggesting that this is causing a bowel obstruction.? There are diffuse degenerative changes of the visualized lumbar spine. He is not having any abdominal pain. He denies any alcohol. He denies any previous history of pancreatitis. He denies any weight loss. He denies any family members with pancreatitis. [facility] Medical History Hypertension Home Medications lisinopril 20 mg-hydrochlorothiazide 25 mg tablet 1 tab PO DAILY 12/02/21 [History Last Taken Unknown] Allergy/AdvReac Type Severity Reaction Status Date / Time No Known Allergies Allergy Verified 12/31/21 15:38 Family History Other Liver cancer Ovarian cancer Surgical History History of appendectomy Social History Smoking Status: Current every day smoker tobacco type: cigarettes ROS ROS Narrative Pertinent positives and pertinent negatives as noted in HPI. All other systems were reviewed and are negative Lab / Micro Data Result Diagrams: 01/01/22 16:40 01/01/22 05:30 Labs: Laboratory Results - last 24 hr 12/31/21 16:05: WBC 9.1, RBC 4.91, Hgb 17.0 H, Hct 48.2, MCV 98.2 H, MCH 34.6 H, MCHC 35.3, RDW Std Deviation 44.1 H, RDW Coeff of Sravani 12.1, Plt Count 177, MPV 12.6 H, Immature Gran % (Auto) 0.400, Neut % (Auto) 59.2, Lymph % (Auto) 31.3, Frederick % (Auto) 6.9, Eos % (Auto) 1.5, Baso % (Auto) 0.7, Absolute Neuts (auto) 5.4, Absolute Lymphs (auto) 2.86, Nucleated RBC % 0 12/31/21 16:05: Lipase 134 12/31/21 23:00: Hgb 15.9, Hct 44.3 01/01/22 05:30: Hgb 15.2, Hct 41.1 01/01/22 05:30: Sodium 141, Potassium 3.6, Chloride 110 H, Carbon Dioxide 26.0, Anion Gap 5, BUN 16, Creatinine 1.18, Estim Creat Clear Calc 84.20, Est GFR (MDRD) Af Amer 87, Est GFR (MDRD) Non-Af 72, BUN/Creatinine Ratio 13.6, Glucose 83, Calcium 8.1 L 01/01/22 10:16: Hgb 14.6, Hct 41.1 01/01/22 16:40: Hgb 14.9, Hct 40.4 Radiology Impression Abdomen/Pelvis CT 12/31/21 16:02 IMPRESSION: (NOT LISTED IN ORDER OF SIGNIFICANCE) There is acute pancreatitis. Fatty liver. Enlarged liver. There are multiple colonic diverticula consistent with diverticulosis. Other findings as above. Electronically Signed: Leo Chairez MD at 18:32 EDT , Charges/Coding Visit Charges Inpatient E&M: 32913 Init Hosp L2
[2022-01-01 20:53] VITALS: O2SAT 95
[2022-01-01 22:44] VITALS: BP 124/91; PULSE 67; RESP 18; TEMP 36.5; O2SAT 94
[2022-01-02] VITALS (7 sets, daily range): BP systolic 106–135; BP diastolic 69–93; PULSE 60–69; RESP 14–18; TEMP 36.5–36.8; O2SAT 94–99
[2022-01-02] MEDS: Morphine 4 MG/ML Syringe IV ×6 (01:49→23:31)
[2022-01-02] MEDS: 0.9% Saline Lock 10 ML Syringe IV ×5 (01:54→17:42)
[2022-01-02] MEDS: Acetaminophen 325 MG Tablet 650 MG PO ×2 (04:46→19:41)
[2022-01-02] MEDS: Ondansetron 4 MG/2 ML Vial IV (04:47)
[2022-01-02 06:48] LABS: Absolute Lymphocyte Count 2.63 X10^3/uL (0.83-4.51); Absolute Neutrophil Count 3.2 X10^3/uL (2.0-7.7); Basophil# 0.05 X10^3/uL; Basophil% 0.8 % (0-1); Eosinophil# 0.16 X10^3/uL; Eosinophils% 2.5 % (0-5); Hematocrit 43.8 % (40-54); Hemoglobin 15.2 g/dL (13.0-16.5); Lymphocyte # 2.63 X10^3/ul (0.83-4.51); Lymphocyte % 40.8 % (19-41); Mean Corp Hgb Conc 34.7 g/dL (32-36); Monocyte# 0.38 X10^3/uL; Monocyte% 5.9 % (0-10); NRBC Flagged by Analyzer 0 % (0-5); Neutrophil % 49.5 % (47-70); Platelet Count 172 K/mm3 (150-450); RBC Distribution Width CV 12.1 % (11.6-14.6); RBC Distribution Width SD 43.8 fl (35.1-43.9); Red Blood Count 4.47 M/mm3 (4.6-6.2); White Blood Count 6.5 K/mm3 (4.4-11.0)
[2022-01-02] MEDS: Polyethylene Glycol 3350 BOWEL PREP PO (07:34)
[2022-01-02] MEDS: Ensure Clear 120 ML Liquid PO ×3 (11:33→19:42)
--- NOTE | 2022-01-02 15:47 | PCM.PN.HOSP ---
Subjective Subjective Patient was seen and examined today, he was not able to undergo a colonoscopy due to scheduling difficulties today, his hemoglobin was 15.2 today. Patient states he is on no blood when he had bowel movements during his colon prep. Objective Data Objective Data Vital Signs: Vital Signs Temp Pulse Resp BP Pulse Ox O2 Del Method 98.0 F 69 14 135/93 H 99 Room Air 01/02/22 15:30 01/02/22 15:30 01/02/22 15:30 01/02/22 15:30 01/02/22 15:30 01/02/22 15:30 Oxygen Delivery Method Room Air Weight: 92.986 kg Body Mass Index (BMI) 29.4 Intake & Output: Intake and Output for Last 24 Hours 12/31/21 01/01/22 01/02/22 23:59 23:59 23:59 Intake Total 1137.5 / 1137.5 1951.67 / 2201.67 250 / 250 Balance 1137.5 / 1137.5 1951.67 / 2201.67 250 / 250 Lab / Micro Data Result Diagrams: 01/02/22 04:25 01/01/22 05:30 Labs: Laboratory Results - last 24 hr 01/01/22 16:40: Hgb 14.9, Hct 40.4 01/02/22 04:25: WBC 6.5, RBC 4.47 L, Hgb 15.2, Hct 43.8, MCV 98.0 H, MCH 34.0 H, MCHC 34.7, RDW Std Deviation 43.8, RDW Coeff of Sravani 12.1, Plt Count 172, MPV 13.0 H, Immature Gran % (Auto) 0.500, Neut % (Auto) 49.5, Lymph % (Auto) 40.8, Webster % (Auto) 5.9, Eos % (Auto) 2.5, Baso % (Auto) 0.8, Absolute Neuts (auto) 3.2, Absolute Lymphs (auto) 2.63, Nucleated RBC % 0 Physical Exam Const alert, oriented x3, no apparent distress and healthy appearing General Appearance: cooperative, well kempt and well developed Orientation / Consciousness: awake, oriented to person, oriented to place and oriented to time HEENT normocephalic and moist oral mucous membranes Eyes PERRL, EOMs intact bilaterally and conjunctivae normal Neck supple, no JVD, thyroid normal and no carotid bruits General: trachea midline Resp normal respiratory effort and clear to auscultation bilaterally Auscultation: Negative for rales, rhonchi or wheezes Cardio regular rate, regular rhythm, no murmurs, no rub and no gallops GI normal to inspection, nondistended, normoactive bowel sounds, soft to palpation, non-tender and non-distended Extremity no clubbing, cyanosis or edema Skin no rashes or lesions noted General Skin Exam: no breakdown Neuro oriented x3, CN's II-XII intact bilaterally, no focal motor deficits and no sensory deficits noted Sensorium / Orientation: awake and alert Speech: speech normal Psych affect normal Assessment & Plan Assessment/Plan (1) GI bleed: PLAN: Plan 1. Acute GI bleed-hemoglobin stable. Patient will hopefully undergo colonoscopy tomorrow. 2. Hypertension-stable, continue home regimen. #3 elevated hemoglobin-etiology unclear, patient will should follow-up with his PCP as outpatient Charges/Coding Visit Charges Inpatient E&M: 15797 Subs Hosp L2
[2022-01-03] VITALS (9 sets, daily range): BP systolic 103–139; BP diastolic 69–97; PULSE 54–75; RESP 16–18; TEMP 36.3–36.8; O2SAT 94–100; BMI 29.4
[2022-01-03] MEDS: 0.9% Saline Lock 10 ML Syringe IV ×2 (06:10→09:41)
[2022-01-03] MEDS: Morphine 4 MG/ML Syringe IV ×2 (06:10→09:41)
[2022-01-03] MEDS: Lactated Ringers 1,000 ML 15 ML IV (10:29)
--- NOTE | 2022-01-03 12:15 | OP.COLON_ITS ---
Patient Name: Adalid Mclean Procedure Date: 01/03/2022 11:27 AM Date of : 1980 Age: 41 Procedure: Colonoscopy Indications: Hematochezia Providers: Lucas Barfield DO Medicines: Monitored Anesthesia Care Patient Profile: Last Colonoscopy: none. The patient's first colonoscopy is today. Complications: No immediate complications. Procedure: Pre-Anesthesia Assessment: - Prior to the procedure, a History and Physical was performed, and patient medications and allergies were reviewed. The patient is competent. The risks and benefits of the procedure and the sedation options and risks were discussed with the patient. All questions were answered and informed consent was obtained. Patient identification and proposed procedure were verified by the physician in the pre-procedure area. Mental Status Examination: alert and oriented. Airway Examination: normal oropharyngeal airway and neck mobility. Respiratory Examination: clear to auscultation. CV Examination: normal. Prophylactic Antibiotics: The patient does not require prophylactic antibiotics. Prior Anticoagulants: The patient has taken no previous anticoagulant or antiplatelet agents. After reviewing the risks and benefits, the patient was deemed in satisfactory condition to undergo the procedure. The anesthesia plan was to use monitored anesthesia care (MAC). Immediately prior to administration of medications, the patient was re-assessed for adequacy to receive sedatives. The heart rate, respiratory rate, oxygen saturations, blood pressure, adequacy of pulmonary ventilation, and response to care were monitored throughout the procedure. The physical status of the patient was re-assessed after the procedure. After I obtained informed consent, the scope was passed under direct vision. Throughout the procedure, the patient's blood pressure, pulse, and oxygen saturations were monitored continuously. The was introduced through the anus and advanced to the terminal ileum. The colonoscopy was performed without difficulty. The patient tolerated the procedure well. The quality of the bowel preparation was good. Scope In: 11:43:20 AM Scope Out: 12:02:21 PM Total Procedure Duration Time 0 hours 19 minutes 1 second Findings: Hemorrhoids were found on perianal exam. Non-bleeding internal hemorrhoids were found during retroflexion. The hemorrhoids were moderate and Grade II (internal hemorrhoids that prolapse but reduce spontaneously). The mucosa vascular pattern at the hepatic flexure, in the ascending colon and in the cecum was locally increased. This had caused hemorrhagic colitis with localized bleeding that had stopped likely secondary to polycythemia. Multiple small-mouthed diverticula were found in the recto-sigmoid colon and sigmoid colon. Impression: - Hemorrhoids found on perianal exam. - Non-bleeding internal hemorrhoids. - No specimens collected. -Lower GI bleeding was likely from 3 sources being polycythemia associated hemorrhagic colitis, diverticular and hemorrhoidal. Recommendation: - Repeat colonoscopy in 5 years for surveillance. Work-up for polycythemia. 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 However he should see senior staff consultant for further testing as this would likely recur again in the future. - Continue present medications. Procedure Code(s): --- Professional --- 53543, Colonoscopy, flexible; diagnostic, including collection of specimen(s) by brushing or washing, when performed (separate procedure) CPT copyright 2017 [employer]. All rights reserved. The codes documented in this report are preliminary and upon resistor tester review may be revised to meet current compliance requirements. Lucas Barfield DO 01/03/2022 12:15:12 PM This report has been signed electronically. Number of Addenda: 0 Note Initiated On: 01/03/2022 11:27 AM
--- NOTE | 2022-01-03 12:15 | OP.CCLET_ITS ---
01/03/2022 Ena Holloway Md Re : Colonoscopy procedure for Adalid Mclean Dear Dr. Holloway This procedure was performed on Monday, January 03, 2022. My impressions and recommendations are as follows: Impressions : - Hemorrhoids found on perianal exam. - Non-bleeding internal hemorrhoids. - No specimens collected. -Lower GI bleeding was likely from 3 sources being polycythemia associated hemorrhagic colitis, diverticular and hemorrhoidal. Recommendations : - Repeat colonoscopy in 5 years for surveillance. Work-up for polycythemia. 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 However he should see content strategist for further testing as this would likely recur again in the future. - Continue present medications. My findings are described in the full procedure note, which is enclosed. If I can be of further assistance, please feel free to contact me at . Sincerely, Lucas Friend, DO 01/03/2022 12:15:12 PM This report has been signed electronically.
--- NOTE | 2022-01-03 14:08 | DCINST_ITS ---
Discharge Instructions Diet Discharge Diet: No restrictions Activity Discharge Activity: Return to Normal Activity Weight Bearing Status: Full weight bearing Follow Up Care Test Results: Test results from this visit will be discussed in further detail at your follow- up appointment, if applicable. Discharge Plan Admission Admit Date/Time: 12/31/21 20:43 Primary Reason for Your Visit: lower gastrointestinal bleeding Attending Provider: Kyle Ly Primary Care Provider: Ena Holloway Consulting Providers: Lucas Barfield ; Mandeep Siegel Instructions Additional Instructions / Restrictions: get your polycythemia addressed by your family doctor Discharge Orders/Prescriptions Prescriptions: Continued lisinopril-hydrochlorothiazide 20-25 mg tablet 1 tab PO DAILY Label Comments: take 1 tablet by mouth once daily Referrals / Follow Up: Ena Holloway MD [Primary Care Provider] - Within 2 Weeks Disposition Disposition (needs filled in before D/C Order can be placed): Home, Self Care
--- NOTE | 2022-01-03 14:38 | DS.PCM_ITS ---
Providers Date of Admission: 12/31/21 Date of Discharge: 01/03/22 Primary Care Physician: Dr. Ena Holloway MD Consultations 12/31/21 22:01 Consult: Gastroenterology Routine Consulting Provider: LicoLucas Reason for Consult: Acute GI bleed EMERGENT Consult: No MD Notified: Yes Date Notified: 12/31/21 Time Notified: 20:48 Method of Notification: ED Physician Initiated Reason For Visit: ACUTE LOWER GI BLEED Diagnosis Discharge Diagnosis (1) GI bleed: Status: Acute Code(s): K92.2 - Gastrointestinal hemorrhage, unspecified Plan 1. Acute GI bleed-hemoglobin stable. Patient will hopefully undergo colonoscopy tomorrow. 2. Hypertension-stable, continue home regimen. #3 elevated hemoglobin-etiology unclear, patient will should follow-up with his PCP as outpatient #4 acute hemorrhagic colitis-etiology unclear #5 internal hemorrhoidal disease #6 acute diverticular bleed Medications at Discharge Home Medications lisinopril 20 mg-hydrochlorothiazide 25 mg tablet 1 tab PO DAILY 12/02/21 Hospital Course Operations None Procedures Colonoscopy Summary of Care Provided Minutes Spent on Discharge: 32 Hospital Course: This 41-year-old white male was seen in the emergency room at [facility] with complaints of bright red rectal bleeding with clots at times. Patient's hemoglobin appeared to be elevated however, work-up in the emergency room was unremarkable. Patient was admitted to [place] [address], his labs were monitored, his hemoglobin dropped slightly and the patient was seen in consultation by gastroenterology. Patient had no more episodes of rectal bleeding during his hospital stay. Patient underwent a colonoscopy on 01/03/2022 which showed nonbleeding internal hemorrhoids, an area of hemorrhagic colitis in the hepatic flexure and ascending colon, and diverticulosis. It was felt that the patient's lower GI bleeding was caused by combination of the hemorrhoids, the hemorrhagic colitis, and diverticular bleed. On 01/03/2022, patient was seen and examined: On examination he appeared in good health and spirits. Vital signs as documented. Skin warm and dry and without overt rashes. Neck without JVD, neck was supple, trachea midline, thyroid was normal. Lungs clear bilaterally, normal air movement was noted. Heart exam notable for regular rhythm, normal sounds and absence of murmurs, rubs or gallops. Abdomen unremarkable and without evidence of organomegaly, masses, or abdominal aortic enlargement. Bowel sounds are present, abdomen is not distended. Extremities nonedematous, no cyanosis was noted, no clubbing was noted. Neuro: Cranial nerves II through XII are grossly intact, no focal motor deficits were noted, sensation to light touch and pinprick intact, motor exam 5/5 throughout. Psych: Patient is alert and oriented x3, he does not appear anxious or depressed, he does not appear agitated. Patient appears stable for discharge on 01/03/2022, he was instructed to follow- up with his PCP regarding his polycythemia. Weight / BMI Weight Weight: 92.986 kg Body Mass Index (BMI) 29.4 ABG / Lab / Microbiology Data Result Diagrams: 01/02/22 04:25 01/01/22 05:30 D/C Instructions Discharge Diet: No restrictions Weight Bearing Status: Full weight bearing Meaningful Use Info Meaningful Use Diagnoses (Choose all that apply): None applicable Discharge Plan Admission Admit Date/Time: 12/31/21 20:43 Primary Reason for Your Visit: lower gastrointestinal bleeding Attending Provider: Kyle Ly Primary Care Provider: Ena Holloway Consulting Providers: Lucas Barfield ; Mandeep Siegel Instructions Forms: Work / School Excuse Additional Instructions / Restrictions: get your polycythemia addressed by your family doctor Discharge Orders/Prescriptions Prescriptions: Continued lisinopril-hydrochlorothiazide 20-25 mg tablet 1 tab PO DAILY Label Comments: take 1 tablet by mouth once daily Referrals / Follow Up: Ena Holloway MD [Primary Care Provider] - Within 2 Weeks Disposition Disposition (needs filled in before D/C Order can be placed): Home, Self Care Charges/Coding Visit Charges Inpatient E&M: 68000 Disch Hosp
== END 2022-01-03 19:00 | disposition home or self-care (01) | DRG 253 ==
LOC: ED 20:45 → MS3 20:52
PROVIDERS: Internal Medicine Gastroenterology; Nurse Practitioner Family; Admitting Provider Hospitalist; Emergency Provider Emergency Medicine; Visit Provider Internal Medicine
PROC: 0DJD8ZZ Inspection of Lower Intestinal Tract, Via Natural or Artificial Opening Endoscopic (ICD-10-PCS; CPT 45378; principal; 2022-01-03 11:25)
DX: K92.2 Gastrointestinal hemorrhage, unspecified (principal); D75.1 Secondary polycythemia; K76.0 Fatty (change of) liver, not elsewhere classified; K52.9 Noninfective gastroenteritis and colitis, unspecified; E86.0 Dehydration; I10 Essential (primary) hypertension; F17.210 Nicotine dependence, cigarettes, uncomplicated; K57.30 Diverticulosis of large intestine without perforation or abscess without bleeding; K64.1 Second degree hemorrhoids; K64.4 Residual hemorrhoidal skin tags; Z79.899 Other long term (current) drug therapy; Z90.49 Acquired absence of other specified parts of digestive tract
CPT/HCPCS: 36415; 74177; 80048; 80076; 83690; 85014; 85018; 85025; 85610; 85730; 93005; 99284; 99406; J7030; J7120; Q9967; A4216; J2405

== ENCOUNTER 2022-01-06 01:14 | Observation (INO) | payer MEDICAID, SELFPAY ==
[2022-01-06] VITALS (11 sets, daily range): BP systolic 103–141; BP diastolic 69–102; PULSE 63–89; RESP 15–18; TEMP 35.5–37.3; O2SAT 94–100; BMI 41.5; BMI 29.2
--- NOTE | 2022-01-06 01:28 | EX.ED.DYSGE1 ---
HPI History of Present Illness Chief Complaint: GI Bleed Informant: patient Onset/Context/Timing Onset: Weeks Current Severity: Moderate Maximum Severity: Moderate Narrative Narrative: Patient presents with continued GI bleed. Patient was seen here on December 31 and admitted to the hospital for evaluation of GI bleed. At that time he had had rectal bleeding for the past 2 weeks and was passing large clots. He had a colonoscopy performed that showed nonbleeding internal hemorrhoids, hemorrhagic colitis in the hepatic flexure and ascending colon, as well as diverticulosis. Patient states that his bleeding continued throughout his hospital stay. He was discharged to home on the . He continues to have rectal bleeding and about an hour ago vomited blood as well. He does report continued left mid to lower abdominal pain. No fever or chills have been noted. [facility] Medical History Hypertension Home Medications lisinopril 20 mg-hydrochlorothiazide 25 mg tablet 1 tab PO DAILY 12/02/21 [History Last Taken Unknown] Allergy/AdvReac Type Severity Reaction Status Date / Time No Known Allergies Allergy Verified 12/31/21 15:38 Family History Other Liver cancer Ovarian cancer Surgical History History of appendectomy Social History Smoking Status: Current every day smoker tobacco type: cigarettes ROS ROS ED Constitutional Constitutional ED: Denies chills or fever(s) Eyes Eyes: Denies change in vision or discharge from eye(s) ENT ENT ED: Denies discharge from eye(s), rhinorrhea or sore throat Cardiovascular Cardiovascular: Denies chest pain or palpitations Respiratory/Chest Respiratory/Chest: Denies cough or dyspnea Gastrointestinal Gastrointestinal: Reports abdominal pain, diarrhea, nausea and vomiting Genitourinary Genitourinary ED: Denies dysuria Musculoskeletal Musculoskeletal: Denies back pain or extremity pain Integumentary Denies Abrasions or rash Neurologic Neurologic: Denies headache(s) or weakness Allergic/Immunologic Allergic/Immunologic ED: Denies lip swelling or urticaria EXAM Physical Exam Const Vital Signs: 01/06/22 01:15 10/03/22 01:14 Temperature 96 F L Temperature Source Temporal Pulse Rate 89 Respiratory Rate 15 Blood Pressure 141/102 H Blood Pressure Mean 115 Pulse Ox 99 Oxygen Delivery Method Room Air Positive well nourished and well developed General Appearance ED: well developed HEENT Reports normocephalic and head/scalp atraumatic Eyes PERRL and EOMs intact bilaterally Neck supple Chest Wall inspection of chest normal and palpation of chest normal Resp normal respiratory effort and clear to auscultation bilaterally Cardio regular rate and regular rhythm GI GI Narrative: Abdomen soft with mild left mid abdominal tenderness palpation. No guarding or rebound. Palpation: soft Back/Spine no CVA tenderness Extremity normal to inspection Neuro oriented x3 and no sensory deficits noted Sensorium / Orientation: alert Motor Exam: strength 5/5 throughout Psych Mood & Affect: anxious and tearful Skin no rashes or lesions noted MDM MDM MDM Narrative Medical decision making narrative: Patient given IV fluids along with morphine and Zofran for pain. He was given Protonix. Lab work obtained. Lab Data Attestation: I reviewed the patient's lab results. Labs: Laboratory Results - last 24 hr 01/06/22 01/06/22 01/06/22 01:59 01:59 01:59 WBC 6.2 RBC 4.59 L Hgb 15.8 Hct 44.9 MCV 97.8 H MCH 34.4 H MCHC 35.2 RDW Std Deviation 43.8 RDW Coeff of Sravani 12.2 Plt Count 219 MPV 11.8 Immature Gran % (Auto) 0.300 Neut % (Auto) 56.1 Lymph % (Auto) 34.6 Harrison % (Auto) 6.1 Eos % (Auto) 2.1 Baso % (Auto) 0.8 Absolute Neuts (auto) 3.5 Absolute Lymphs (auto) 2.14 Nucleated RBC % 0 PT Cancelled INR Cancelled APTT Cancelled Sodium 143 Potassium 3.7 Chloride 112 H Carbon Dioxide 25.0 Anion Gap 6 BUN 9 Creatinine 1.20 Estim Creat Clear Calc 82.80 Est GFR (MDRD) Af Amer 85 Est GFR (MDRD) Non-Af 70 BUN/Creatinine Ratio 7.5 L Glucose 100 Calcium 8.9 Total Bilirubin 0.30 Direct Bilirubin 0.16 AST 28 ALT 60 Alkaline Phosphatase 58 Total Protein 7.7 Albumin 3.9 Globulin 3.8 01/06/22 02:18 WBC RBC Hgb Hct MCV MCH MCHC RDW Std Deviation RDW Coeff of Sravani Plt Count MPV Immature Gran % (Auto) Neut % (Auto) Lymph % (Auto) Harrison % (Auto) Eos % (Auto) Baso % (Auto) Absolute Neuts (auto) Absolute Lymphs (auto) Nucleated RBC % PT 13.5 INR 1.1 APTT 30.4 Sodium Potassium Chloride Carbon Dioxide Anion Gap BUN Creatinine Estim Creat Clear Calc Est GFR (MDRD) Af Amer Est GFR (MDRD) Non-Af BUN/Creatinine Ratio Glucose Calcium Total Bilirubin Direct Bilirubin AST ALT Alkaline Phosphatase Total Protein Albumin Globulin Treatment and Re-Evaluation Narrative: Hemoglobin remains normal range at 15.8. It was 15.2 at the time of discharge. Chemistry studies are unremarkable. BUN is 9 and creatinine is 1.20. LFTs are normal. Coags are normal. Patient did get up to use the restroom here. He states he passed a lot of very dark black stool. I spoke with Dr. Barfield who saw the patient last week and performed a colonoscopy. He would like patient started on a Protonix drip. He will see the patient in the morning to discuss EGD. I will speak with the hospitalist. Discharge Plan Triage Chief Complaint: GI Bleed ED Provider: Divya Nobles Dx/Rx/DC Orders Clinical Impression: GI bleed Prescriptions: No Action lisinopril-hydrochlorothiazide 20-25 mg tablet 1 tab PO DAILY Label Comments: take 1 tablet by mouth once daily Primary Care Provider: Ena Holloway Referrals: Ena Holloway MD [Primary Care Provider] - Disposition Disposition: Acute Care Hospital [facility]
[2022-01-06] MEDS: Ondansetron 4 MG/2 ML Vial IV (01:37)
[2022-01-06] MEDS: 0.9% Normal Saline 1,000 ML 150 ML IV (01:37)
[2022-01-06] MEDS: Morphine 4 MG/ML Syringe IV ×2 (01:37→04:39)
[2022-01-06 02:10] LABS: Absolute Lymphocyte Count 2.14 X10^3/uL (0.83-4.51); Absolute Neutrophil Count 3.5 X10^3/uL (2.0-7.7); Basophil# 0.05 X10^3/uL; Basophil% 0.8 % (0-1); Eosinophil# 0.13 X10^3/uL; Eosinophils% 2.1 % (0-5); Hematocrit 44.9 % (40-54); Hemoglobin 15.8 g/dL (13.0-16.5); Lymphocyte # 2.14 X10^3/ul (0.83-4.51); Lymphocyte % 34.6 % (19-41); Mean Corp Hgb Conc 35.2 g/dL (32-36); Mean Corpuscular Hgb 34.4 pg (27.0-32.0); Mean Corpuscular Volume 97.8 fL (80-94); Mean Platelet Vol. 11.8 fl (6.2-12.0); Monocyte# 0.38 X10^3/uL; Monocyte% 6.1 % (0-10); NRBC Flagged by Analyzer 0 % (0-5); Neutrophil # 3.47 X10^3/uL (2.7-7.7); Neutrophil % 56.1 % (47-70); Platelet Count 219 K/mm3 (150-450); RBC Distribution Width CV 12.2 % (11.6-14.6); RBC Distribution Width SD 43.8 fl (35.1-43.9); Red Blood Count 4.59 M/mm3 (4.6-6.2); White Blood Count 6.2 K/mm3 (4.4-11.0)
[2022-01-06 02:25] LABS: AST(SGOT) 28 U/L (15-37); Alanine Aminotransfer ALT/SGPT 60 U/L (16-61); Albumin, Serum 3.9 g/dL (3.2-5.0); Alkaline Phosphatase 58 U/L (45-117); Anion Gap 6 (5-15); BUN 9 mg/dL (7-18); BUN/Creat Ratio 7.5 RATIO (10-20); Bilirubin, Direct 0.16 mg/dL (0.00-0.30); Calcium,Total 8.9 mg/dL (8.5-10.1); Chloride 112 mmol/L (98-107); EST Glomerular Filtration Rate 70 mL/min (>60); Est Glom Filt Rate - Afr Amer 85 mL/min (>60); Globulin 3.8 g/dL (2.2-4.2); Glucose 100 mg/dL (74-106); Potassium 3.7 mmol/L (3.5-5.1); Protein, Total 7.7 g/dL (6.4-8.2); Sodium Level 143 mmol/L (136-145)
[2022-01-06 02:34] LABS: International Normalized Ratio 1.1; Partial Thromboplast Time 30.4 Seconds (24.1-36.2); Prothrombin Time (Protime)PT. 13.5 SECONDS (11.7-14.9)
--- NOTE | 2022-01-06 03:32 | HP.PCM.HOS_ITS ---
HPI - General General Date of Admission: 01/06/22 Date of Service: 01/06/22 Chief Complaint: Hematemesis HPI Narrative ANDREW SHAH, is a 41 M with a significant history of tobacco abuse and hypertension who presented to the emergency department on 12/31/2021 and at that time stated that he has been having bright red blood per rectum for 2 weeks and now (01/06/2022) presents to the emergency department with hematemesis that started few hours before presentation. He reports hematemesis with clots. Associated with his symptoms is lower abd ominal pain. Of note on his presentation on 12/31/2021 patient had a colonoscopy and was discharged home. He report that he has never had any relief from the rectal bleeding and has continued to bleed while at the hospital and after discharge. He reports recent NSAID use. He reported last use of NSAIDs was months ago. He drinks about 2 bottles of beers about 3 times in a week. [facility] Medical History (Updated 01/06/22 @ 04:[address] Mandeep Siegel MD) Hypertension Home Medications lisinopril 20 mg-hydrochlorothiazide 25 mg tablet 1 tab PO DAILY 12/02/21 [History Last Taken Unknown] Allergy/AdvReac Type Severity Reaction Status Date / Time No Known Allergies Allergy Verified 12/31/21 15:38 Family History Other Liver cancer Ovarian cancer Surgical History History of appendectomy Social History Smoking Status: Current every day smoker tobacco type: cigarettes ROS ROS Narrative Pertinent positives and pertinent negatives as noted in HPI. All other systems were reviewed and are negative Vital Signs Vital Signs Vital Signs: 01/06/22 01:15 01/06/22 01:14 Temperature 96 F L Temperature Source Temporal Pulse Rate 89 Respiratory Rate 15 Blood Pressure 141/102 H Blood Pressure Mean 115 Pulse Ox 99 Oxygen Delivery Method Room Air Weight Weight: 131.542 kg Body Mass Index (BMI) 41.5 Physical Exam Narrative Physical exam: General: Well-nourished, well-developed. Head: Normocephalic, atraumatic, no tenderness Eyes: Vision is grossly intact. EOMI ENT, no trauma, moist mucous membranes, no rhinorrhea Neck: Nontender, full range of motion, no spinal tenderness, deformities, step- off CVS: Regular rate and rhythm. S1-S2 present. No murmur, gallop or rub. Respiratory : clear to auscultation bilaterally, chest wall nontender, no wheezing Abdomen: Soft, nontender, nondistended, normal bowel sounds, no masses : Deferred Back: Nontender, no CVA tenderness, no midline spinal tenderness, deformities, step-offs Extremities: Nontender full range of motion, no trauma Skin: Normal color, no trauma, abrasions Neuro: Alert, oriented, cranial nerves II through XII grossly intact. Psychiatry: Normal mood. Normal affect. Not depressed. Not anxious. Results Lab / Micro Data Result Diagrams: 01/06/22 01:59 01/06/22 01:59 Labs: Laboratory Results - last 24 hr 01/06/22 01:59: WBC 6.2, RBC 4.59 L, Hgb 15.8, Hct 44.9, MCV 97.8 H, MCH 34.4 H, MCHC 35.2, RDW Std Deviation 43.8, RDW Coeff of Sravani 12.2, Plt Count 219, MPV 11.8, Immature Gran % (Auto) 0.300, Neut % (Auto) 56.1, Lymph % (Auto) 34.6, [place] % (Auto) 6.1, Eos % (Auto) 2.1, Baso % (Auto) 0.8, Absolute Neuts (auto) 3.5, Absolute Lymphs (auto) 2.14, Nucleated RBC % 0 01/06/22 01:59: PT Cancelled, INR Cancelled, APTT Cancelled 01/06/22 01:59: Sodium 143, Potassium 3.7, Chloride 112 H, Carbon Dioxide 25.0, Anion Gap 6, BUN 9, Creatinine 1.20, Estim Creat Clear Calc 82.80, Est GFR (MDRD) Af Amer 85, Est GFR (MDRD) Non-Af 70, BUN/Creatinine Ratio 7.5 L, Glucose 100, Calcium 8.9, Total Bilirubin 0.30, Direct Bilirubin 0.16, AST 28, ALT 60, Alkaline Phosphatase 58, Total Protein 7.7, Albumin 3.9, Globulin 3.8 01/06/22 02:18: PT 13.5, INR 1.1, APTT 30.4 Assessment & Plan Assessment/Plan (1) GI bleed: PLAN: Plan Acute blood loss anemia secondary to acute GI bleed Likely both upper GI bleed and lower GI bleed. Reports of colonoscopy on 01/03/2022 was reviewed. Endoscopists impression is as below: Impression: ? -Hemorrhoids found on perianal exam. ? - Non-bleeding internal hemorrhoids. ? - No specimens collected. ? -Lower GI bleeding was likely from 3 sources ? being polycythemia associated hemorrhagic ? colitis, diverticular and hemorrhoidal. Recommendation was repeat colonoscopy in 5 years time and see customer service specialist for polycythemia work-up. His hemoglobin on this presentation (01/06/2022) was 15.8 in the setting of history of erythrocytosis. His hemoglobin on 12/02/2021 was 20.8. Trend H&H.? IV morphine for pain.? Maintenance IV fluids ordered. Protonix drip started at the emergency department and continued. Emergency department discussed the case of a GI.? We will keep patient n.p.o. and consult GI. Hypertension Blood pressure is not within goal Lisinopril and hydrochlorothiazide held as patient will be kept n.p.o. after midnight.? As needed hydralazine ordered. Trend blood pressure and adjust blood pressure medications. Tobacco abuse Counseled DVT Prophylaxis: SCD ordered. Charges/Coding Visit Charges Inpatient E&M: 08468 Init Hosp L3
[2022-01-06] MEDS: 0.9% Normal Saline 1,000 ML 100 ML IV ×2 (04:42→16:15)
[2022-01-06 06:23] LABS: Anion Gap 8 (5-15); BUN 8 mg/dL (7-18); BUN/Creat Ratio 7.3 RATIO (10-20); Calcium,Total 8.5 mg/dL (8.5-10.1); Chloride 113 mmol/L (98-107); EST Glomerular Filtration Rate 78 mL/min (>60); Est Glom Filt Rate - Afr Amer 94 mL/min (>60); Estimated Creatinine Clearance 90.33 ml/min; Glucose 84 mg/dL (74-106); Potassium 3.7 mmol/L (3.5-5.1); Sodium Level 143 mmol/L (136-145)
[2022-01-06] MEDS: HYDROmorphone 0.5 MG/0.5 ML SYRINGE IV ×6 (06:41→18:41)
--- NOTE | 2022-01-06 07:00 | CON.PCM_ITS ---
Assessment & Plan Assessment/Plan (1) Hypertension: PLAN: Blood pressure control will be as per primary team. (2) Pancreatitis: PLAN: Recommend to check an ESR, CRP, CBC, amylase lipase and repeat ct scan of the abdomen and pelvis. (3) Dehydration: (4) GI bleed: PLAN: The differential diagnosis for upper GI bleeding would be peptic ulcer disease, Crystal magallanes tear, AVM, gastritis. Recommend upper endoscopy. HPI Consult Data Date of Consult: 01/05/22 HPI Narrative Reason for Consultation: Abdominal pain and GI bleeding HPI Narrative: ANDREW SHAH, is a 41 M who presents to the ER with acute onset of abdominal pain followed by lower GI bleeding and upper GI bleeding. He originally presented to the emergency department on 12/31/2021 and at that time stated that he has been having bright red blood per rectum for 2 weeks and now (01/06/2022)? presents to the emergency department with hematemesis that started few hours before presentation. He reports hematemesis with clots.? Associated with his symptoms is lower abdominal pain. His original CT scan abdomen pelvis had shown possible pancreatitis and di verticulosis. It also showed hepatomegaly without splenomegaly. He drinks about 2 bottles of beers about 3 times in a week. His original blood work and showed a significant erythrocytosis secondary to possible polycythemia. The differential diagnosis from this was nicotine addiction in the setting of dehydration. Currently his hemoglobin is 15. His colonoscopy had shown hemorrhagic colitis, diverticulosis and internal hemorrhoids. He reports recent NSAID use.? He reported last? use of NSAIDs was months ago. All other 16 review of systems are negative except as per body mentioned HPI. [facility] Medical History (Updated 01/06/22 @ 04:[address] Mandeep Siegel MD) Hypertension Home Medications lisinopril 20 mg-hydrochlorothiazide 25 mg tablet 1 tab PO DAILY HTN 12/02/21 [History Last Taken 01/04/22] Allergy/AdvReac Type Severity Reaction Status Date / Time No Known Allergies Allergy Verified 12/31/21 15:38 Family History Other Liver cancer Ovarian cancer Surgical History History of appendectomy Social History Smoking Status: Current every day smoker tobacco type: cigarettes ROS ROS Narrative Pertinent positives and pertinent negatives as noted in HPI. All other systems were reviewed and are negative Physical Exam Narrative GENERAL: cooperative HEENT: Atraumatic; normocephalic EYES; Anicteric, Normal Conjunctiva NECK; supple, normal thyroid, RESPIRATORY: Diminished to auscultation CARDIOVASCULAR: Regular S1 S2, GI: soft, normoactive bowel sounds, : No Renal angle tenderness; EXTREMITIES: No edema, no clubbing, MUSCULOSKELETAL: no muscle wasting NEURO: Awake; no lateralizing signs. SKIN: No Rash PSYCH; Flat affect Lab / Micro Data Result Diagrams: 01/06/22 07:58 01/06/22 04:39 Labs: Laboratory Results - last 24 hr 01/06/22 01:59: WBC 6.2, RBC 4.59 L, Hgb 15.8, Hct 44.9, MCV 97.8 H, MCH 34.4 H, MCHC 35.2, RDW Std Deviation 43.8, RDW Coeff of Sravani 12.2, Plt Count 219, MPV 11.8, Immature Gran % (Auto) 0.300, Neut % (Auto) 56.1, Lymph % (Auto) 34.6, [place] % (Auto) 6.1, Eos % (Auto) 2.1, Baso % (Auto) 0.8, Absolute Neuts (auto) 3.5, Absolute Lymphs (auto) 2.14, Nucleated RBC % 0 01/06/22 01:59: PT Cancelled, INR Cancelled, APTT Cancelled 01/06/22 01:59: Sodium 143, Potassium 3.7, Chloride 112 H, Carbon Dioxide 25.0, Anion Gap 6, BUN 9, Creatinine 1.20, Estim Creat Clear Calc 82.80, Est GFR (MDRD) Af Amer 85, Est GFR (MDRD) Non-Af 70, BUN/Creatinine Ratio 7.5 L, Glucose 100, Calcium 8.9, Total Bilirubin 0.30, Direct Bilirubin 0.16, AST 28, ALT 60, Alkaline Phosphatase 58, Total Protein 7.7, Albumin 3.9, Globulin 3.8 01/06/22 02:18: PT 13.5, INR 1.1, APTT 30.4 01/06/22 04:39: Sodium 143, Potassium 3.7, Chloride 113 H, Carbon Dioxide 22.0, Anion Gap 8, BUN 8, Creatinine 1.10, Estim Creat Clear Calc 90.33, Est GFR (M DRD) Af Amer 94, Est GFR (MDRD) Non-Af 78, BUN/Creatinine Ratio 7.3 L, Glucose 84, Calcium 8.5 01/06/22 07:58: Hgb 15.2, Hct 43.8
--- NOTE | 2022-01-06 07:42 | PN.HOSP_ITS ---
Subjective Subjective Patient is a 41-year-old gentleman with recent colonoscopy 01/03/2022 who presented with hematochezia as well as hematemesis admitted to regular nursing floor for further manageme Objective Data Objective Data Vital Signs: Vital Signs Temp Pulse Resp BP Pulse Ox O2 Del Method 98.1 F 69 16 139/94 H 100 Room Air 01/06/22 04:02 01/06/22 04:02 01/06/22 04:02 01/06/22 04:02 01/06/22 04:02 01/06/22 07:39 Oxygen Delivery Method Room Air Weight: 92.6 kg Body Mass Index (BMI) 29.2 Intake & Output: Intake and Output for Last 24 Hours 01/04/22 01/05/22 01/06/22 23:59 23:59 23:59 Intake Total 417.5 / 417.5 Balance 417.5 / 417.5 Lab / Micro Data Result Diagrams: 01/06/22 07:58 01/06/22 04:39 Labs: Laboratory Results - last 24 hr 01/06/22 01:59: WBC 6.2, RBC 4.59 L, Hgb 15.8, Hct 44.9, MCV 97.8 H, MCH 34.4 H, MCHC 35.2, RDW Std Deviation 43.8, RDW Coeff of Sravani 12.2, Plt Count 219, MPV 11.8, Immature Gran % (Auto) 0.300, Neut % (Auto) 56.1, Lymph % (Auto) 34.6, [place] % (Auto) 6.1, Eos % (Auto) 2.1, Baso % (Auto) 0.8, Absolute Neuts (auto) 3. 5, Absolute Lymphs (auto) 2.14, Nucleated RBC % 0 01/06/22 01:59: PT Cancelled, INR Cancelled, APTT Cancelled 01/06/22 01:59: Sodium 143, Potassium 3.7, Chloride 112 H, Carbon Dioxide 25.0, Anion Gap 6, BUN 9, Creatinine 1.20, Estim Creat Clear Calc 82.80, Est GFR (MDRD) Af Amer 85, Est GFR (MDRD) Non-Af 70, BUN/Creatinine Ratio 7.5 L, Glucose 100, Calcium 8.9, Total Bilirubin 0.30, Direct Bilirubin 0.16, AST 28, ALT 60, Alkaline Phosphatase 58, Total Protein 7.7, Albumin 3.9, Globulin 3.8 01/06/22 02:18: PT 13.5, INR 1.1, APTT 30.4 01/06/22 04:39: Sodium 143, Potassium 3.7, Chloride 113 H, Carbon Dioxide 22.0, Anion Gap 8, BUN 8, Creatinine 1.10, Estim Creat Clear Calc 90.33, Est GFR (MDRD) Af Amer 94, Est GFR (MDRD) Non-Af 78, BUN/Creatinine Ratio 7.3 L, Glucose 84, Calcium 8.5 Physical Exam Narrative GENERAL: cooperative HEENT: Atraumatic; normocephalic EYES; Anicteric, Normal Conjunctiva NECK; supple, normal thyroid, RESPIRATORY: Diminished to auscultation CARDIOVASCULAR: Regular S1 S2, GI: soft, normoactive bowel sounds, : No Renal angle tenderness; EXTREMITIES: No edema, no clubbing, MUSCULOSKELETAL: no muscle wasting NEURO: Awake; no lateralizing signs. SKIN: No Rash PSYCH; Flat affect Assessment & Plan Assessment/Plan (1) GI bleed: PLAN: Plan Patient is a 41-year-old gentleman with recent colonoscopy 01/03/2022 who presented with hematochezia as well as hematemesis admitted to regular nursing floor for further management 1. Acute GI bleed ? Results of recent endoscopic evaluation reviewed. Patient has been admitted to regular nursing floor ordered H&H every 6 consultation placed to GI patient placed on Protonix drip 2. Essential hypertension ? Did continue patient home meds 3. Tobacco dependence - Counseled on cessation, offered nicotine patch for tobacco cravings 4. DVT prophylaxis ? Not indicated more so patient presented with GI bleed Charges/Coding Visit Charges Inpatient E&M: 18010 Subs Hosp L2
[2022-01-06 08:19] LABS: Hematocrit 43.8 % (40-54); Hemoglobin 15.2 g/dL (13.0-16.5)
[2022-01-06] MEDS: 0.9% Saline Lock 10 ML Syringe IV ×6 (09:00→20:41)
--- NOTE | 2022-01-06 10:16 | NURSING ---
OFF UNIT VIA BED FOR PROCEDURE
[2022-01-06] MEDS: 0.9% Normal Saline 1,000 ML 15 ML IV (10:40)
--- NOTE | 2022-01-06 11:29 | CT_ITS ---
STUDY: CT ABDOMEN AND PELVIS WITH CONTRAST REASON FOR EXAM: Male, 41 years old. GI bleed. Pancreatitis. RADIATION DOSAGE (If Supplied By Facility): CTDIvol = ( 16.61 ) mGy, DLP = ( 1145.62 ) mGycm TECHNIQUE: Transaxial images were obtained from the dome of the diaphragm to the symphysis pubis without oral contrast. IV 100mL Isovue-300 was administered. Sagittal and coronal images were reconstructed. Individualized dose optimization techniques were used for this CT. COMPARISON: Comparison is made with prior study 12/31/2021. FINDINGS: Mild increased markings at the lung bases suggestive of bibasilar atelectasis. The visualized portions of the heart are within normal limits. There is decreased attenuation of the liver consistent with steatosis. Mild hepatomegaly. Findings suggestive of a 2 adjacent hemangiomas in the left lobe of liver. The larger hemangioma measures 3 cm x 2.8 cm. Normal gallbladder and extrahepatic biliary system. Normal spleen. Normal pancreas. Normal bilateral adrenal glands. Normal right kidney. Normal left kidney. Normal visualized stomach. Normal small intestine. There are scattered colonic diverticula consistent with diverticulosis. There are surgical clips in the region of the appendix consistent with a prior appendectomy. Normal abdominal aorta. Normal inferior vena cava. Normal retroperitoneum. Normal urinary bladder. Small bilateral inguinal rings containing fat. There are mild degenerative changes of the visualized lumbar spine. CT/Abdomen/Pelvis W IV Cont ONLY IMPRESSION: Mild hepatomegaly and diffuse fatty infiltration of the liver. Findings suggestive of 2 small hemangiomas in the left lobe of the liver. Bibasilar atelectasis. Electronically Signed: Chevy Subramanian MD at 13:19 EDT ,
--- NOTE | 2022-01-06 11:30 | EGD_PTH ---
PATIENT: ANDREW SHAH Jr. LOC: MS3 U#:[id number] AGE/SX: 41/M ROOM: OR312 RE01/06/[address]: Dr. Brady Hansen MD : 1980 BED: 1 DIS: 01/07/2022 SPEC #: [id number] RECD: 01/06/22 11:30 STATUS: LANA REGabriel #: [id number] CHARO: 01/06/22 11:[address]: Lucas Barfield DEPT: SURGICAL PATHOLOGY RECD BY: Shelley Clements ENTERED: 01/06/22 13:34 SP TYPE: EGD BIOPSY OTHR DR: MD Dr. Mandeep Blackwell MD Dr. Lynne Cola, MD Dr. Rahsaan Friend, DO Tissues: Esophagus, NOS Procedures: Special Stain Group II Surgery Specimen Level IV Alcian Blue/PAS (control) Comments: @ Ordering doctor for SUIV edited from to @ by BETH at 01/06/22 1518 @ Submitting doctor edited from to @ by RGOOD at 01/06/22 1518 HEADER OPERATION: EGD ([facility]), biopsy PRE-OP DIAGNOSIS: Acute GI bleed TISSUE SUBMITTED: Distal esophagus biopsy MICROSCOPIC DIAGNOSIS Distal esophagus, biopsy: Fragments of gastroesophageal mucosa with chronic inflammation. Intestinal metaplasia (goblet cell metaplasia) not identified. See comment. MELIZA:helena 01/07/2022 COMMENT Alcian blue/PAS stain with matched control is used in the evaluation of the specimen. MICROSCOPIC DESCRIPTION Slides are reviewed. GROSS DESCRIPTION Received in fixative is one container labeled with the patient's name and designated distal esophagus biopsy. The specimen consists of multiple irregular fragments of light macias soft tissue that in aggregate measure 0.8 x 0.8 x 0.1 cm. The specimen is totally submitted in one cassette. / MELIZA:helena 01/06/2022 TC:3 CPT: 50025, 28094
--- NOTE | 2022-01-06 11:45 | OP.EGD_ITS ---
Patient Name: Adalid Mclean Procedure Date: 01/06/2022 11:05 AM Date of : 1980 Age: 41 Procedure: Upper GI endoscopy Indications: Hematemesis Providers: Lucas Barfield DO Medicines: Monitored Anesthesia Care Patient Profile: This is a 41 year old male. Refer to note in patient chart for documentation of history and physical. Patient has symptoms of acute abdominal cramping, acute right lower quadrant abdominal pain and acute epigastric abdominal pain. Complications: No immediate complications. Procedure: Pre-Anesthesia Assessment: - Prior to the procedure, a History and Physical was performed, and patient medications and allergies were reviewed. The risks and benefits of the procedure and the sedation options and risks were discussed with the patient. All questions were answered and informed consent was obtained. Patient identification and proposed procedure were verified by the physician in the pre-procedure area. Mental Status Examination: alert and oriented. Airway Examination: normal oropharyngeal airway and neck mobility. Respiratory Examination: clear to auscultation. CV Examination: normal. Prophylactic Antibiotics: The patient does not require prophylactic antibiotics. Prior Anticoagulants: The patient has taken no previous anticoagulant or antiplatelet agents. ASA Grade Assessment: II - A patient with mild systemic disease. After reviewing the risks and benefits, the patient was deemed in satisfactory condition to undergo the procedure. The anesthesia plan was to use moderate sedation / analgesia (conscious sedation). Immediately prior to administration of medications, the patient was re-assessed for adequacy to receive sedatives. The heart rate, respiratory rate, oxygen saturations, blood pressure, adequacy of pulmonary ventilation, and response to care were monitored throughout the procedure. The physical status of the patient was re-assessed after the procedure. After obtaining informed consent, the endoscope was passed under direct vision. Throughout the procedure, the patient's blood pressure, pulse, and oxygen saturations were monitored continuously. The Endoscope was introduced through the mouth, and advanced to the second part of duodenum. The upper GI endoscopy was accomplished without difficulty. The patient tolerated the procedure well. Scope In: 11:16:53 AM Scope Out: 11:23:43 AM Total Procedure Duration Time 0 hours 6 minutes 50 seconds Findings: A 5 mm bleeding Crystal-Thorpe tear with stigmata of recent bleeding was found. Coagulation for hemostasis using monopolar probe was successful. Estimated blood loss was minimal. The Z-line was irregular and was found 40 cm from the incisors. Biopsies were taken with a cold forceps for histology. Verification of patient identification for the specimen was done. Estimated blood loss was minimal. A small hiatal hernia was present. The exam of the stomach was otherwise normal. No gross lesions were noted in the second portion of the duodenum. Impression: - Crystal-Thorpe tear. Treated with a monopolar probe. - Z-line irregular, 40 cm from the incisors. Biopsied. - Small hiatal hernia. - No gross lesions in the second portion of the duodenum. Recommendation: - Discharge patient to home. - Resume previous diet. - Continue present medications. - Await pathology results. Procedure Code(s): --- Professional --- 24428, 59, Esophagogastroduodenoscopy, flexible, transoral; with control of bleeding, any method 99257, 51, Esophagogastroduodenoscopy, flexible, transoral; with biopsy, single or multiple CPT copyright 2017 [employer]. All rights reserved. The codes documented in this report are preliminary and upon development associate review may be revised to meet current compliance requirements. Lucas Barfield DO 01/06/2022 11:45:02 AM This report has been signed electronically. Number of Addenda: 0 Note Initiated On: 01/06/2022 11:05 AM
--- NOTE | 2022-01-06 11:45 | OP.CCLET_ITS ---
01/06/2022 Ena Holloway Md Re : Upper GI endoscopy procedure for Adalid Mclean Dear Dr. Holloway This procedure was performed on Thursday, January 06, 2022. My impressions and recommendations are as follows: Impressions : - Crystal-Thorpe tear. Treated with a monopolar probe. - Z-line irregular, 40 cm from the incisors. Biopsied. - Small hiatal hernia. - No gross lesions in the second portion of the duodenum. Recommendations : - Discharge patient to home. - Resume previous diet. - Continue present medications. - Await pathology results. My findings are described in the full procedure note, which is enclosed. If I can be of further assistance, please feel free to contact me at . Sincerely, Lucas Barfield, 01/06/2022 11:45:02 AM This report has been signed electronically.
[2022-01-06 12:27] LABS: Amylase 34 U/L (25-115); CRP < 2.90 mg/L (0.0-3.0); LDH 280 U/L (87-241); Lipase 193 U/L (73-393)
[2022-01-06 12:45] LABS: Erythrocyte Sedimentation Rate 11 mm/hr (0-20)
--- NOTE | 2022-01-06 13:05 | CASEMGMT ---
Pt is currently off of the floor. RN CM to check back for assessment.
[2022-01-06] MEDS: Contrast Allergy Safety Check IV (13:15)
[2022-01-06 14:05] LABS: Hematocrit 43.1 % (40-54)
--- NOTE | 2022-01-06 14:43 | CASEMGMT ---
ABHINAV CRUZ Assessment: Face to Face with pt for initial transition planning/care coordination assessment. ABHINAV CRUZ introduced self and role at [facility], pt voices understanding and consents to assessment. Pt is A/O x4 and answers all questions appropriately at this time. Pt sitting up in bed in no distress. Care providers, pharmacy, and demographics verified/updated. Admitting Dx: GIB PCP:Cola Specialists:Pt denies. Preferred Pharmacy: [facility] Retail Insurance: [facility] Community Plan Prescription Benefit: yes LW/HPOA: Pt denies having a LW/DPOA and denies need for info regarding AD. LNOK: Adalid and Gale Mclean, parents; Kristy Espinoza sig other Living Arrangements: Pt lives with sig other in a ground level apt with 3 steps to enter with a rail. Pt reports he is I in ADL's and denies concerns at home. Transportation: Pt sig other transports him to medical appts. DME/HHC/SNF: Pt has crutches available at home. Denies hx of HHC or SNF stays. Pt states no concerns with going home at time of dc. Pt states no further concerns/needs. CM to follow. Advised pt to ask CM if any further question/concerns/needs arise, voices understanding. Pt Goal: Home Plan: Home
[2022-01-06] MEDS: DiphenhydrAMINE 50 MG/ML Syringe 25 MG IV (20:40)
[2022-01-06 21:22] LABS: Hematocrit 43.7 % (40-54); Hemoglobin 14.7 g/dL (13.0-16.5)
[2022-01-06] MEDS: Acetaminophen 325 MG Tablet 650 MG PO (21:24)
[2022-01-07] MEDS: 0.9% Saline Lock 10 ML Syringe IV (02:16)
[2022-01-07] MEDS: 0.9% Normal Saline 1,000 ML 100 ML IV (02:16)
[2022-01-07] MEDS: HYDROmorphone 0.5 MG/0.5 ML SYRINGE IV (02:16)
[2022-01-07 02:21] LABS: Hematocrit 41.4 % (40-54); Hemoglobin 14.9 g/dL (13.0-16.5)
[2022-01-07 02:23] VITALS: BP 131/97; PULSE 55; RESP 18; TEMP 36.7; O2SAT 98
[2022-01-07 06:33] LABS: Absolute Lymphocyte Count 2.25 X10^3/uL (0.83-4.51); Absolute Neutrophil Count 2.4 X10^3/uL (2.0-7.7); Basophil# 0.05 X10^3/uL; Eosinophil# 0.18 X10^3/uL; Eosinophils% 3.5 % (0-5); Hematocrit 41.5 % (40-54); Hemoglobin 14.8 g/dL (13.0-16.5); Lymphocyte # 2.25 X10^3/ul (0.83-4.51); Lymphocyte % 43.4 % (19-41); Mean Corp Hgb Conc 35.7 g/dL (32-36); Mean Corpuscular Hgb 35.3 pg (27.0-32.0); Mean Platelet Vol. 11.5 fl (6.2-12.0); Monocyte# 0.32 X10^3/uL; Monocyte% 6.2 % (0-10); NRBC Flagged by Analyzer 0 % (0-5); Neutrophil # 2.37 X10^3/uL (2.7-7.7); Neutrophil % 45.7 % (47-70); Platelet Count 182 K/mm3 (150-450); RBC Distribution Width CV 12.4 % (11.6-14.6); RBC Distribution Width SD 44.6 fl (35.1-43.9); Red Blood Count 4.19 M/mm3 (4.6-6.2); White Blood Count 5.2 K/mm3 (4.4-11.0)
[2022-01-07 07:08] LABS: Anion Gap 4 (5-15); BUN 8 mg/dL (7-18); BUN/Creat Ratio 7.4 RATIO (10-20); Chloride 115 mmol/L (98-107); Creatinine, Serum 1.08 mg/dL (0.70-1.30); EST Glomerular Filtration Rate 79 mL/min (>60); Est Glom Filt Rate - Afr Amer 96 mL/min (>60); Glucose 85 mg/dL (74-106); Magnesium 2.2 mg/dL (1.6-2.6); Phosphorus 2.8 mg/dL (2.5-4.9); Potassium 3.8 mmol/L (3.5-5.1); Sodium Level 143 mmol/L (136-145)
--- NOTE | 2022-01-07 07:49 | PCM.PN.HOSP ---
Subjective Subjective Patient underwent EGD today prior was found to have Crystal-Thorpe details of the EGD as below. Patient be assessed for possible discharge Objective Data Objective Data Vital Signs: Vital Signs Temp Pulse Resp BP Pulse Ox O2 Del Method 98.1 F 55 L 18 131/97 H 98 Room Air 01/07/22 02:23 01/07/22 02:23 01/07/22 02:23 01/07/22 02:23 01/07/22 02:23 01/07/22 02:23 Oxygen Delivery Method Room Air Weight: 92.6 kg Body Mass Index (BMI) 29.2 Intake & Output: Intake and Output for Last 24 Hours 01/05/22 01/06/22 01/07/22 23:59 23:59 23:59 Intake Total 1452.50 / 1452.50 1100 / 1100 Balance 1452.50 / 1452.50 1100 / 1100 Lab / Micro Data Result Diagrams: 01/07/22 06:15 01/07/22 06:15 Labs: Laboratory Results - last 24 hr 01/06/22 04:39: Lactate Dehydrogenase 280 H, C-React Prot Ext Range < 2.90, Amylase 34, Lipase 193 01/06/22 07:58: Hgb 15.2, Hct 43.8 01/06/22 07:58: ESR 11 01/06/22 13:55: Hgb 15.0, Hct 43.1 01/06/22 21:00: Hgb 14.7, Hct 43.7 01/07/22 02:05: Hgb 14.9, Hct 41.4 01/07/22 06:15: WBC 5.2, RBC 4.19 L, Hgb 14.8, Hct 41.5, MCV 99.0 H, MCH 35.3 H, MCHC 35.7, RDW Std Deviation 44.6 H, RDW Coeff of Sravani 12.4, Plt Count 182, MPV 11.5, Immature Gran % (Auto) 0.200, Neut % (Auto) 45.7 L, Lymph % (Auto) 43.4 H, [place] % (Auto) 6.2, Eos % (Auto) 3.5, Baso % (Auto) 1.0, Absolute Neuts (auto) 2.4, Absolute Lymphs (auto) 2.25, Nucleated RBC % 0 01/07/22 06:15: Sodium 143, Potassium 3.8, Chloride 115 H, Carbon Dioxide 24.0, Anion Gap 4 L, BUN 8, Creatinine 1.08, Estim Creat Clear Calc 92.00, Est GFR (MDRD) Af Amer 96, Est GFR (MDRD) Non-Af 79, BUN/Creatinine Ratio 7.4 L, Glucose 85, Calcium 8.0 L, Phosphorus 2.8, Magnesium 2.2 Radiography Diagnostic Testing: Radiology Impression Abdomen/Pelvis CT 01/06/22 11:29 IMPRESSION: Mild hepatomegaly and diffuse fatty infiltration of the liver. Findings suggestive of 2 small hemangiomas in the left lobe of the liver. Bibasilar atelectasis. Electronically Signed: Chevy Subramanian MD at 13:19 EDT , Physical Exam Narrative GENERAL: cooperative HEENT: Atraumatic; normocephalic EYES; Anicteric, Normal Conjunctiva NECK; supple, normal thyroid, RESPIRATORY: Diminished to auscultation CARDIOVASCULAR: Regular S1 S2, GI: soft, normoactive bowel sounds, : No Renal angle tenderness; EXTREMITIES: No edema, no clubbing, MUSCULOSKELETAL: no muscle wasting NEURO: Awake; no lateralizing signs. SKIN: No Rash PSYCH; Flat affect Assessment & Plan Assessment/Plan (1) GI bleed: PLAN: Plan Patient is a 41-year-old gentleman with recent colonoscopy 01/03/2022 who presented with hematochezia as well as hematemesis admitted to regular nursing floor for further management 1. Acute GI bleed ? Results of recent endoscopic evaluation reviewed. Patient has been admitted to regular nursing floor ordered H&H every 6 consultation placed to GI patient placed on Protonix drip 01/07/2022;Patient underwent EGD today prior was found to have Crystal-Thorpe details of the EGD as below. Patient be assessed for possible discharge ?Crystal-Thorpe tear.? Treated with a monopolar probe. - Z-line irregular, 40 cm from the incisors.? Biopsied. - Small hiatal hernia. - No gross lesions in the second portion of the duodenum. Recommendations : - Discharge patient to home. - Resume previous diet. - Continue present medications. - Await pathology results. 2. Essential hypertension ? Did continue patient home meds 3. Tobacco dependence - Counseled on cessation, offered nicotine patch for tobacco cravings 4. DVT prophylaxis ? Not indicated more so patient presented with GI bleed Charges/Coding Visit Charges Inpatient E&M: 70420 Subs Hosp L2
--- NOTE | 2022-01-07 08:57 | PCM.DC.SUM ---
Providers Date of Admission: 01/06/22 Date of Discharge: 01/07/22 Primary Care Physician: Dr. Ena Holloway MD Consultations 01/06/22 03:53 Consult: Gastroenterology Routine Consulting Provider: Lucas Barfield Reason for Consult: Acute GI bleed EMERGENT Consult: No MD Notified: Yes Date Notified: 01/06/22 Time Notified: 03:30 Method of Notification: ED Physician Initiated Reason For Visit: GI BLEED Diagnosis Discharge Diagnosis (1) GI bleed: Status: Acute Code(s): K92.2 - Gastrointestinal hemorrhage, unspecified Plan Patient is a 41-year-old gentleman with recent colonoscopy 01/03/2022 who presented with hematochezia as well as hematemesis admitted to regular nursing floor for further management 1. Acute GI bleed ? Results of recent endoscopic evaluation reviewed. Patient has been admitted to regular nursing floor ordered H&H every 6 consultation placed to GI patient placed on Protonix drip 01/07/2022;Patient underwent EGD today prior was found to have Crystal-Thorpe details of the EGD as below. Patient be assessed for possible discharge ?Crystal-Thorpe tear.? Treated with a monopolar probe. - Z-line irregular, 40 cm from the incisors.? Biopsied. - Small hiatal hernia. - No gross lesions in the second portion of the duodenum. Recommendations : - Discharge patient to home. - Resume previous diet. - Continue present medications. - Await pathology results. 2. Essential hypertension ? Did continue patient home meds 3. Tobacco dependence - Counseled on cessation, offered nicotine patch for tobacco cravings 4. DVT prophylaxis ? Not indicated more so patient presented with GI bleed Medications at Discharge Home Medications lisinopril 20 mg-hydrochlorothiazide 25 mg tablet 1 tab PO DAILY HTN 12/02/21 pantoprazole 40 mg tablet,delayed release (Protonix) 40 mg PO DAILY #90 tabs 01/07/22 Hospital Course Summary of Care Provided Minutes Spent on Discharge: 35 Physical Exam Narrative GENERAL: cooperative HEENT: Atraumatic; normocephalic EYES; Anicteric, Normal Conjunctiva NECK; supple, normal thyroid, RESPIRATORY: Diminished to auscultation CARDIOVASCULAR: Regular S1 S2, GI: soft, normoactive bowel sounds, : No Renal angle tenderness; EXTREMITIES: No edema, no clubbing, MUSCULOSKELETAL: no muscle wasting NEURO: Awake; no lateralizing signs. SKIN: No Rash PSYCH; Flat affect Weight / BMI Weight Weight: 92.6 kg Body Mass Index (BMI) 29.2 ABG / Lab / Microbiology Data Result Diagrams: 01/07/22 06:15 01/07/22 06:15 Laboratory: Laboratory Results - last 24 hr 01/06/22 04:39: Lactate Dehydrogenase 280 H, C-React Prot Ext Range < 2.90, Amylase 34, Lipase 193 01/06/22 07:58: ESR 11 01/06/22 13:55: Hgb 15.0, Hct 43.1 01/06/22 21:00: Hgb 14.7, Hct 43.7 01/07/22 02:05: Hgb 14.9, Hct 41.4 01/07/22 06:15: WBC 5.2, RBC 4.19 L, Hgb 14.8, Hct 41.5, MCV 99.0 H, MCH 35.3 H, MCHC 35.7, RDW Std Deviation 44.6 H, RDW Coeff of Sravani 12.4, Plt Count 182, MPV 11.5, Immature Gran % (Auto) 0.200, Neut % (Auto) 45.7 L, Lymph % (Auto) 43.4 H, Edgar % (Auto) 6.2, Eos % (Auto) 3.5, Baso % (Auto) 1.0, Absolute Neuts (auto) 2.4, Absolute Lymphs (auto) 2.25, Nucleated RBC % 0 01/07/22 06:15: Sodium 143, Potassium 3.8, Chloride 115 H, Carbon Dioxide 24.0, Anion Gap 4 L, BUN 8, Creatinine 1.08, Estim Creat Clear Calc 92.00, Est GFR (MDRD) Af Amer 96, Est GFR (MDRD) Non-Af 79, BUN/Creatinine Ratio 7.4 L, Glucose 85, Calcium 8.0 L, Phosphorus 2.8, Magnesium 2.2 Radiography Diagnostic Testing: Radiology Impression Abdomen/Pelvis CT 01/06/22 11:29 IMPRESSION: Mild hepatomegaly and diffuse fatty infiltration of the liver. Findings suggestive of 2 small hemangiomas in the left lobe of the liver. Bibasilar atelectasis. Electronically Signed: Chevy Subramanian MD at 13:19 EDT , D/C Instructions Discharge Diet: No restrictions Discharge Activity: Return to Normal Activity Call your doctor if you observe: Fever of 101 or Higher, Shortness of breath, Fainting spells and Chest pain Meaningful Use Info Meaningful Use Diagnoses (Choose all that apply): None applicable Discharge Plan Admission Admit Date/Time: 01/06/22 03:18 Attending Provider: Brady Hansen Primary Care Provider: Ena Holloway Consulting Providers: Lucas Barfield ; Mandeep Siegel Discharge Orders/Prescriptions Prescriptions: New pantoprazole [Protonix] 40 mg tablet,delayed release (DR/EC) 40 mg PO DAILY Qty: 90 0RF Continued lisinopril-hydrochlorothiazide 20-25 mg tablet 1 tab PO DAILY Label Comments: take 1 tablet by mouth once daily Referrals / Follow Up: Ena Holloway MD [Primary Care Provider] - Within 2 Weeks Lucas Barfield DO [Med Staff - Active Staff] - Disposition Disposition (needs filled in before D/C Order can be placed): Home, Self Care Charges/Coding Visit Charges Inpatient E&M: 41788 Disch Hosp
[2022-01-07 09:10] VITALS: BP 133/97; PULSE 63; RESP 14; TEMP 37.1; O2SAT 98
--- NOTE | 2022-01-07 10:22 | PHA.DC.MC ---
Pharmacy Service has performed discharge medication reconciliation and counseling for this patient. 1. PANTOPRAZOLE 40MG PO DAILY The patient's discharge medication list was reviewed for discrepancies and discrepancies were resolved. Home Medications lisinopril 20 mg-hydrochlorothiazide 25 mg tablet 1 tab PO DAILY HTN 12/02/21 pantoprazole 40 mg tablet,delayed release (Protonix) 40 mg PO DAILY #90 tabs 01/07/22 The patient was counseled on the following discharge medications and changes in medications for homegoing were reviewed. The Reason for Use, instructions for use, and potential side effects were reviewed for all new medications. The patient's questions regarding all of their medications were answered. The patient was able to verbally demonstrate an understanding of their discharge medications.
== END 2022-01-07 11:15 | disposition home or self-care (01) | DRG 242 ==
LOC: ED 03:13 → MS3 07:15
PROVIDERS: Internal Medicine Gastroenterology; Admitting Provider Hospitalist; Emergency Provider Emergency Medicine; Visit Provider Internal Medicine
PROC: 0DJ08ZZ Inspection of Upper Intestinal Tract, Via Natural or Artificial Opening Endoscopic (ICD-10-PCS; CPT 43235; principal; 2022-01-06 11:25)
DX: K22.6 Gastro-esophageal laceration-hemorrhage syndrome (principal); D62 Acute posthemorrhagic anemia; K44.9 Diaphragmatic hernia without obstruction or gangrene; I10 Essential (primary) hypertension; F17.210 Nicotine dependence, cigarettes, uncomplicated; Z71.6 Tobacco abuse counseling; Z79.899 Other long term (current) drug therapy; Z28.310 Unvaccinated for COVID-19; Z28.9 Immunization not carried out for unspecified reason
CPT/HCPCS: 43255; 43239; 36415; 74177; 80048; 80076; 82150; 83615; 83690; 83735; 84100; 85014; 85018; 85025; 85610; 85652; 85730; 86140; 88305; 88313; 96361; 96365; 96366; 96375; 96376; 99218; 99285; J7030; Q9967; A4216; G0378; J2405; J3490

== ENCOUNTER 2022-02-28 08:16 | Emergency (ER) | payer MEDICAID, SELFPAY ==
[2022-02-28 08:16] VITALS: BP 147/106; PULSE 109; RESP 18; TEMP 36.4; O2SAT 99; BMI 30.1
--- NOTE | 2022-02-28 09:05 | EX.ED.UPPERE ---
HPI History of Present Illness HPI Narrative: Patient presents with laceration to his left hand that occurred today. Patient states she was using a knife to cut food when it slipped and cut his left hand. Patient states the pain is sharp. Patient states pain is constant. Patient states pain is worse with movement. Patient denies any paresthesias or weakness. Patient denies any other injuries. Patient states his last tetanus was approximately 15 years ago. Chief Complaint: Laceration Informant: patient Occured/Mechanism Comment: Cut with a knife Onset/Context/Timing Onset: Today Context: Sudden Onset Timing: Continuous Quality of Pain: Sharp Worsened by: Movement Relieved by: Nothing Associated Symptoms Associated Symptoms: Negative for Parasthesia, Weakness or Loss of Funtion Narrative Tetanus Immunization: >10 years PFSH PFS Medical History Hypertension Home Medications lisinopril 20 mg-hydrochlorothiazide 25 mg tablet 1 tab PO DAILY HTN 12/02/21 [History Last Taken 01/04/22] hydrocortisone 2.5 % topical cream with perineal applicator (Anusol-HC) 1 applic AR QHS #30 grams 01/07/22 [Rx Last Taken Unknown] pantoprazole 40 mg tablet,delayed release (Protonix) 40 mg PO DAILY #90 tabs 01/07/22 [Rx Last Taken Unknown] Allergy/AdvReac Type Severity Reaction Status Date / Time No Known Allergies Allergy Verified 02/28/22 08:20 Family History Other Liver cancer Ovarian cancer Surgical History History of appendectomy Social History Smoking Status: Current every day smoker tobacco type: cigarettes ROS ROS ED Constitutional Constitutional ED: Denies chills or fever(s) Eyes Eyes: Denies blurry vision or change in vision ENT ENT ED: Denies rhinorrhea or sore throat Cardiovascular Cardiovascular: Denies chest pain or palpitations Respiratory/Chest Respiratory/Chest: Denies cough or dyspnea Gastrointestinal Gastrointestinal: Denies nausea or vomiting Genitourinary Genitourinary ED: Denies dysuria or hematuria Musculoskeletal Musculoskeletal: Denies back pain or neck pain Integumentary Denies abscess or rash Neurologic Neurologic: Denies headache(s) or weakness Allergic/Immunologic Allergic/Immunologic ED: Denies mouth swelling or urticaria EXAM Physical Exam Const Vital Signs: 02/28/22 08:16 Temperature 97.5 F L Temperature Source Temporal Pulse Rate 109 H Respiratory Rate 18 Blood Pressure 147/106 H Blood Pressure Mean 119 Pulse Ox 99 Oxygen Delivery Method Room Air Positive well nourished and well developed General Appearance ED: well developed and NAD HEENT Reports moist mucous membranes Neck full ROM and supple Extremity Extremity Narrative: There is a 1.5 cm full-thickness linear laceration on the volar aspect of the left thumb over the MP joint near the webspace between the first and second digits. There is moderate gapping of the wound margins. There is no active bleeding. There are no foreign bodies noted. There is full range of motion. Strength is 5/5 in flexion extension of the IP and MP joints of the left thumb. Sensation was intact to light touch in all digits. Capillary refill was less than 2 seconds in all digits. Neuro oriented x3, CN's II-XII intact bilaterally, moves all extremities, no focal motor deficits and no sensory deficits noted Sensorium / Orientation: alert Motor Exam: strength 5/5 throughout Psych mental status grossly normal MDM MDM MDM Narrative Medical decision making narrative: Patient was advised that he needs sutures placed for the laceration. Patient was given a tetanus booster. Patient left the emergency department prior to receiving sutures. Patient left without completing treatment. Discharge Plan Triage Chief Complaint: Laceration ED Provider: Rhett Tyler Dx/Rx/DC Orders Clinical Impression: Laceration of left thumb without foreign body without damage to nail Prescriptions: No Action lisinopril-hydrochlorothiazide 20-25 mg tablet 1 tab PO DAILY Label Comments: take 1 tablet by mouth once daily pantoprazole [Protonix] 40 mg tablet,delayed release (DR/EC) 40 mg PO DAILY Qty: 90 0RF hydrocortisone [Anusol-HC] 2.5 % cream with perineal applicator 1 applic AR QHS Qty: 30 0RF Primary Care Provider: Ena Holloawy Referrals: Ena Holloway MD [Primary Care Provider] - Disposition Disposition: Elopement
[2022-02-28] MEDS: Diphth,Pertuss(Acell),Tet Vac 0.5 ML Vial IM (09:28)
--- NOTE | 2022-02-28 09:47 | ED.RN ---
PT REPORTS HE IS TIRED OF WAITING. AMBULATES OUT OF DEPT WITH FAMILY.
--- NOTE | 2022-02-28 09:49 | ED.RN ---
PT LEFT PRIOR TO BEING SUTURED AND RECEIVING D/C INSTRUCTIONS.
== END 2022-02-28 09:55 | disposition left against medical advice (07) ==
PROVIDERS: Emergency Provider Emergency Medicine; Visit Provider Emergency Medicine
DX: S61.012A Laceration without foreign body of left thumb without damage to nail, initial encounter (principal); W26.0XXA Contact with knife, initial encounter; Y93.G1 Activity, food preparation and clean up; Z23 Encounter for immunization; I10 Essential (primary) hypertension; F17.210 Nicotine dependence, cigarettes, uncomplicated; Z79.899 Other long term (current) drug therapy
CPT/HCPCS: 90471; 90715; 99282

== ENCOUNTER 2022-03-03 19:25 | Emergency (ER) | payer MEDICAID, SELFPAY ==
[2022-03-03 19:26] VITALS: BP 138/90; PULSE 118; RESP 18; TEMP 36.6; O2SAT 96; BMI 28.8
[2022-03-03 19:50] VITALS: BP 147/105; BP 148/109; BP 154/119; PULSE 101; PULSE 103; PULSE 96
[2022-03-03 20:13] LABS: Hematocrit 51.8 % (40-54); Mean Corp Hgb Conc 35.5 g/dL (32-36); Mean Corpuscular Hgb 34.5 pg (27.0-32.0); Mean Corpuscular Volume 97.2 fL (80-94); Mean Platelet Vol. 11.6 fl (6.2-12.0); Platelet Count 262 K/mm3 (150-450); RBC Distribution Width CV 12.5 % (11.6-14.6); RBC Distribution Width SD 44.8 fl (35.1-43.9); Red Blood Count 5.33 M/mm3 (4.6-6.2); White Blood Count 8.9 K/mm3 (4.4-11.0)
[2022-03-03 20:18] LABS: Prothrombin Time (Protime)PT. 12.6 SECONDS (11.7-14.9)
[2022-03-03 20:22] LABS: Hemoglobin 18.4 g/dL (13.0-16.5)
[2022-03-03] MEDS: Dicyclomine 10 MG Capsule 20 MG PO (21:16)
--- NOTE | 2022-03-03 22:45 | ED.VIS.GI ---
HPI HPI - GI History of Present Illness Chief Complaint: GI Bleed Detail of Chief Complaint: Right red blood per rectum past several days Informant: patient and spouse/S.O. Abdominal Pain/Flank Pain Onset: Days Context: Sudden Onset Timing: Intermittent Quality: Cramping Location: RLQ and LLQ Current Severity: Mild Maximum Severity: Moderate Worsened by: Nothing Relieved by: Nothing Nausea/Vomiting/Emesis GI Symptom: Negative for Nausea or Vomiting Diarrhea/Melena/Hematochezia GI Symptom: Positive for Hematochezia; Negative for Diarrhea or Melena Onset: Days Associated Symptoms Associated Symptoms: Negative for Dysuria, Frequency, Hematuria or Urgency Narrative Narrative: Patient is a 42-year-old male with history of internal hemorrhoids diagnosed by Dr. Barfield on colonoscopy, hypertension and alcoholic. He drinks greater than 30 cans of beer per week. He denies history of peptic ulcer disease. Of note he is on Protonix. He does complain of lower abdominal pain. It is crampy. He denies dysuria, frequency, urgency or hematuria. He denies diarrhea. He denies change in color, consistency or caliber of his stool. He denies bruising easily. Significant other states he does bruise easily. He denies bleeding from his gums when he brushes his teeth. He denies hematuria. Prior similar symptoms: Yes Recent Illness/Hospitalization: No PFSH PFSH Medical History Hypertension Internal hemorrhage Home Medications lisinopril 20 mg-hydrochlorothiazide 25 mg tablet 1 tab PO DAILY HTN 12/02/21 [History Last Taken 01/04/22] hydrocortisone 2.5 % topical cream with perineal applicator (Anusol-HC) 1 applic PA QHS #30 grams 01/07/22 [Rx Last Taken Unknown] pantoprazole 40 mg tablet,delayed release (Protonix) 40 mg PO DAILY #90 tabs 01/07/22 [Rx Last Taken Unknown] Allergy/AdvReac Type Severity Reaction Status Date / Time No Known Allergies Allergy Verified 03/03/22 19:27 Family History Other Liver cancer Ovarian cancer Surgical History History of appendectomy Social History (Updated 03/03/22 @ 22:[address] Simon Rangel MD) household members: spouse Smoking Status: Current every day smoker tobacco type: cigarettes substance use type: does not use ROS ROS ED Constitutional Constitutional ED: Denies chills, fever(s), subjective, sweats or weight loss ENT ENT ED: Denies ear pain, rhinorrhea or sore throat Cardiovascular Cardiovascular: Denies chest pain, palpitations or racing heartbeat Respiratory/Chest Respiratory/Chest: Denies cough, dyspnea or dyspnea on exertion Gastrointestinal Gastrointestinal: Denies abdominal pain, constipation, diarrhea or melena Genitourinary Genitourinary ED: Denies dysuria, hematuria or urinary frequency Musculoskeletal Musculoskeletal: Denies arthralgias, back pain, myalgias or neck pain Integumentary Denies abscess, Abrasions or rash Neurologic Neurologic: Denies headache(s), paresthesias or weakness Hematologic/Lymphatic Hematologic/Lymphatic: Denies easy bleeding or easy bruising EXAM Physical Exam Const Vital Signs: 03/03/22 19:26 03/03/22 19:50 Temperature 97.9 F Temperature Source Temporal Pulse Rate 118 H Pulse Rate [Lying] 96 Pulse Rate [Sitting (for 1 minute prior to obtaining)] 103 H Pulse Rate [Standing (for 1 minute prior to obtaining)] 101 H Respiratory Rate 18 Blood Pressure 138/90 H Blood Pressure [Lying] 147/105 H Blood Pressure [Sitting (for 1 minute prior to obtaining)] 148/109 H Blood Pressure [Standing (for 1 minute prior to obtaining)] 154/119 H Blood Pressure Mean 106 Blood Pressure Mean [Lying] 119 Blood Pressure Mean [Sitting (for 1 minute prior to obtaining)] 122 Blood Pressure Mean [Standing (for 1 minute prior to obtaining)] 130 Pulse Ox 96 Oxygen Delivery Method Room Air Positive well nourished and well developed General Appearance ED: well developed and NAD; Negative for pallor HEENT Reports TM's clear and moist mucous membranes HEENT Narrative: Nares patent. Uvula midline. No erythema or exudate the posterior pharynx. normocephalic and atraumatic Tympanic Membrane ED: Yes TM's clear Eyes PERRL and EOMs intact bilaterally General Eye ED: Negative for pale conjunctiva or scleral icterus Neck no lymphadenopathy, supple and no JVD Resp normal respiratory effort and clear to auscultation bilaterally Cardio regular rate, regular rhythm, S1 normal heart sound, S2 normal heart sound and no murmurs GI non-tender, non-distended and no masses GI Narrative: Patient has maroon-colored blood noted in the rectal vault on digital exam. Anoscopy was performed. Please see procedure note Inspection: Negative for abdominal distention Auscultation: hypoactive bowel sounds Palpation: soft; Negative for tender, guarding or rigid Back/Spine no CVA tenderness Extremity full ROM Neuro CN's II-XII intact bilaterally, moves all extremities, no sensory deficits noted and gait normal Sensorium / Orientation: alert Motor Exam: strength 5/5 throughout Psych mental status grossly normal and thought process normal Skin no wounds General Skin Exam: Negative for jaundice or pallor Lesions: no lesions Rashes: no rashes MDM MDM MDM Narrative Medical decision making narrative: Frontal diagnosis includes internal versus external hemorrhoid. Since patient is bruising easily drinks heavily PT/INR was obtained to assess for coagulopathy and liver function. Because he reports orthostatic symptoms and was tachycardic CBC was obtained to evaluate for anemia. Lab Data Attestation: I reviewed the patient's lab results. Lab results narrative: Patient's hemoglobin is approximate 4 g higher than normal. This would go along with dehydration or possibly polycythemia vera. PT/INR was normal. Labs: Laboratory Results - last 24 hr 03/03/22 03/03/22 20:00 20:00 WBC 8.9 RBC 5.33 Hgb 18.4 H* Hct 51.8 MCV 97.2 H MCH 34.5 H MCHC 35.5 RDW Std Deviation 44.8 H RDW Coeff of Sravani 12.5 Plt Count 262 MPV 11.6 Diff Path Review August PT 12.6 INR 1.0 Procedures Other Procedures Procedure(s): Anoscopy was performed. Patient is noted to have an internal hemorrhoid at 5:00 lithotomy position. There is evidence of recent bleeding. There is no other abnormality noted. Feces noted above the anoscope is brown. Discharge Plan Triage Chief Complaint: GI Bleed ED Provider: Simon Rangel Dx/Rx/DC Orders Clinical Impression: Internal hemorrhoid, bleeding, PV (polycythemia vera), Abdominal pain, lower, Alcoholism, Sinus tachycardia Instructions: ED Hemorrhoids, ED Abdominal Pain Unkn Cause Male... Prescriptions: No Action lisinopril-hydrochlorothiazide 20-25 mg tablet 1 tab PO DAILY Label Comments: take 1 tablet by mouth once daily pantoprazole [Protonix] 40 mg tablet,delayed release (DR/EC) 40 mg PO DAILY Qty: 90 0RF hydrocortisone [Anusol-HC] 2.5 % cream with perineal applicator 1 applic PA QHS Qty: 30 0RF Primary Care Provider: Ena Holloway Referrals: Ena Holloway MD [Primary Care Provider] - 5-7 Days Disposition Disposition: Home, Self Care
[2022-03-04 11:15] LABS: Pathologist Review Reviewed
== END 2022-03-03 23:02 | disposition home or self-care (01) ==
PROVIDERS: Emergency Provider Emergency Medicine; Visit Provider Emergency Medicine
DX: K92.2 Gastrointestinal hemorrhage, unspecified (principal); F10.20 Alcohol dependence, uncomplicated; D45 Polycythemia vera; K64.8 Other hemorrhoids; R10.30 Lower abdominal pain, unspecified; I10 Essential (primary) hypertension; F17.210 Nicotine dependence, cigarettes, uncomplicated
CPT/HCPCS: 46600; 85027; 85610; 99285; A4216

== ENCOUNTER 2023-04-10 08:55 | Emergency (ER) | payer SELFPAY ==
[2023-04-10 08:58] VITALS: BP 128/82; PULSE 95; RESP 14; TEMP 37; O2SAT 99; BMI 27.2
[2023-04-10 09:00] VITALS: O2SAT 96
--- NOTE | 2023-04-10 09:08 | EX.ED.VIS.UR ---
HPI HPI - URI History of Present Illness Chief Complaint: Cough Informant: patient and spouse/S.O. Onset/Context/Timing Onset: Days Context: Gradual Onset Timing: Continuous Current Severity: Mild Maximum Severity: Mild Associated Symptoms Associated Symptoms: Positive for Nasal Congestion, Nausea, Vomiting, Diarrhea and Productive Cough Narrative Narrative: 43-year-old male history of asthma since the last 3 days he has had a cough mild sore throat subjective fever and chills. Also nausea, vomiting diarrhea. Roommate recently at diagnosis with flu A. Patient does not feel dehydrated. He has been able to hold down Powerade. Prior similar symptoms: Yes Recent Illness/Hospitalization: No ROS ROS ED ROS Narrative Cough. Subjective fever and chills. Vomiting and diarrhea. Review of Systems ROS Unobtainable: Denies due to encephalopathy Constitutional Constitutional ED: Reports chills, fever(s) and subjective Eyes Eyes: Denies blurry vision ENT ENT ED: Reports sore throat; Denies ear pain or rhinorrhea Cardiovascular Cardiovascular: Denies chest pain or palpitations Respiratory/Chest Respiratory/Chest: Reports cough; Denies dyspnea Gastrointestinal Gastrointestinal: Reports diarrhea, nausea and vomiting; Denies abdominal pain, constipation or melena Genitourinary Genitourinary ED: Denies dysuria or hematuria Musculoskeletal Musculoskeletal: Denies arthralgias Integumentary Denies abscess Neurologic Neurologic: Denies headache(s) Psychiatric Psychiatric: Denies anxiety Endocrine Endocrinology: Denies cold intolerance Hematologic/Lymphatic Hematologic/Lymphatic: Denies easy bleeding, easy bruising or lymphadenopathy Allergic/Immunologic Allergic/Immunologic ED: Denies mouth swelling, tongue swelling or urticaria PFSH [facility] Medical History Hypertension Internal hemorrhage Home Medications lisinopril 20 mg-hydrochlorothiazide 25 mg tablet 1 tab PO DAILY HTN 12/02/21 [History Last Taken 01/04/22] hydrocortisone 2.5 % topical cream with perineal applicator (Anusol-HC) 1 applic SD QHS #30 grams 01/07/22 [Rx Last Taken Unknown] pantoprazole 40 mg tablet,delayed release (Protonix) 40 mg PO DAILY #90 tabs 01/07/22 [Rx Last Taken Unknown] Allergy/AdvReac Type Severity Reaction Status Date / Time No Known Allergies Allergy Verified 04/10/23 08:57 Family History Other Liver cancer Ovarian cancer Surgical History History of appendectomy Social History household members: spouse Smoking Status: Current every day smoker tobacco type: cigarettes substance use type: does not use EXAM Physical Exam Narrative Exam Narrative: Well-appearing middle-age male. Vital signs stable afebrile. Pulse ox 99% on room air no signs hypoxia. H EENT exam pupils are reactive light. Posterior pharynx moist pink. No erythema actually. No trouble swallowing or breathing. No stridor or drooling. Neck nontender. No lymphadenopathy. No meningismus. Lungs Clear to auscultation bilaterally. No rales, rhonchi or wheezing. Heart regular rhythm rate about 90 no murmur. Abdomen soft, nontender. Moving all 4 extremities. Nontender no edema. 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 Dorsi plantarflexion intact. Back nontender. Awake and alert. No focal motor deficits. Const Vital Signs: 04/10/23 08:58 04/10/23 09:00 Temperature 98.6 F Temperature Source Temporal Pulse Rate 95 Respiratory Rate 14 Respiratory Effort Non-Labored Blood Pressure 128/82 H Blood Pressure Mean 97 Pulse Ox 99 Oxygen Delivery Method Room Air Room Air Positive well nourished and well developed; Negative for obese, cachectic or contractures General Appearance ED: well developed and NAD; Negative for cachectic, contractures, cyanotic, diaphoretic or pallor Nutritional Appearance: Negative for cachectic or obese HEENT Reports moist mucous membranes; Denies dry mucous membranes normocephalic and atraumatic; Negative for scalp tenderness Face and Sinus: Negative for sinus tenderness, maxillary instability or facial tenderness Mouth ED: No dry mucous membranes Mouth: No dry mucous membranes Teeth and Gingiva: Negative for caries Throat: posterior oropharynx normal; Negative for tonsils abnormal or posterior oropharynx abnormal Eyes PERRL and EOMs intact bilaterally General Eye ED: Negative for pale conjunctiva, scleral icterus or other Neck no lymphadenopathy, supple, no meningeal signs and no JVD General: Negative for anterior neck swelling, lymphadenopathy or other Resp normal respiratory effort and clear to auscultation bilaterally Effort and Inspection: Negative for retractions Auscultation: Negative for rales, rhonchi or wheezes Cardio S1 normal heart sound, S2 normal heart sound and no murmurs Rate: regular rate; Negative for bradycardia or tachycardic Rhythm: regular rhythm; Negative for abnormal rhythm GI non-tender, non-distended and no masses Inspection: Negative for abdominal distention Auscultation: normoactive bowel sounds Palpation: soft; Negative for tender or guarding Back/Spine no CVA tenderness and normal ROM General Back: Negative for CVA tenderness Cervical Spine: Negative for cervical spine tenderness Thoracic Spine / Upper Back: Negative for thoracic spinal tenderness Lumbar Spine / Lower Back: Negative for lumbar spinal tenderness Sacrum: Negative for tenderness Extremity normal to inspection and full ROM General Extremety ED: Negative for cyanosis, tenderness or other findings General Extremity: Negative for cyanosis or other findings Neuro oriented x3 and CN's II-XII intact bilaterally Sensorium / Orientation: alert, oriented to person, oriented to place and oriented to time; Negative for orientation impaired, lethargic or stuporous Motor Exam: strength 5/5 throughout Psych mental status grossly normal Appearance: Negative for other Attitude: No agitated Mood & Affect: Negative for depressed, anxious or tearful Skin General Skin Exam: Negative for jaundice or pallor Lesions: no lesions Rashes: no rashes Trauma: Negative for abrasion or laceration MDM MDM MDM Narrative Medical decision making narrative: 43-year-old male with presentation consistent with viral syndrome. Lungs are clear I do not hear pneumonia and only needs a chest x-ray. He is not dehydrated. I gave him a glass of water he is currently drinking that. Will get Zofran for nausea and a COVID and flu PCR test. I do not think he needs any blood work. He does not need IV hydration. Repeat exam unchanged at 10:40 AM. Discussed test results with patient. Discharged home. Fluids and rest. Tylenol Motrin. Outpatient follow-up as needed. History & Record Review Discussion w/independent historian: Patient and Family Additional record(s) reviewed:: Prior inpatient record, Prior outpatient record, Prior ED visit and Prior labs Lab Data Attestation: I reviewed the patient's lab results. Lab results narrative: Flu a positive. COVID RSV negative. Discharge Plan Triage Chief Complaint: Cough ED Provider: Christiano Garcia Dx/Rx/DC Orders Clinical Impression: Influenza A Instructions: ED Influenza (Adult) Prescriptions: No Action lisinopril-hydrochlorothiazide 20-25 mg tablet 1 tab PO DAILY Patient Comments: take 1 tablet by mouth once daily pantoprazole [Protonix] 40 mg tablet,delayed release (DR/EC) 40 mg PO DAILY Qty: 90 0RF hydrocortisone [Anusol-HC] 2.5 % cream with perineal applicator 1 applic SD QHS Qty: 30 0RF Primary Care Provider: Ena Holloway Referrals: Ena Holloway MD [Primary Care Provider] - 1 Week if not improving Activity Restrictions/Additional Instructions: You have influenza A. Plenty of fluids and rest. Alternate Tylenol and Motrin for body aches and fevers. Should start feeling better on several days. Follow-up with your doctor if not improving in a week. Disposition Disposition: Home, Self Care
[2023-04-10] MEDS: Ondansetron ODT 4 MG Tablet PO (09:24)
[2023-04-10 10:56] VITALS: RESP 18
--- OUTSIDE RECORDS SUMMARY | 2023-04-10 11:07 | XMS RPT_ITS | CCD ---
Author Name Unknown Address [address] [place] [address] Organization [facility] Results Test Name Value Interpretation Reference Range Facil ity Procedures Date Procedure Procedure Detail Performing Clinician Start: 10-29-2020 Ecg routine ecg w/le ast 12 lds i&r only Summary Purpose Family History No Family History Records FoundNo Family History Records Found Advance Directives No Advanced Directives Records FoundNo Advanced Directives Records Found Additional Source Comments (unrecognized sect ion and content) No Status Records FoundNo Status Records Found INFORMATION SOURCE (unrecogn ized section and content) DATE CREATED AUTHOR AUTHOR'S ORGANIZ ATION 05/26/2021 [facility] RECORDS PERTAINING TO PATIENTS WHO ARE OR HAVE BEEN ENROLLED IN A CHEMICAL DEPENDENCY/SUBSTANCEABUSE PROGRAM, SOME INFORMATION MAY BE OMITTED. This clinical summary was aggregated from multiple sources. Caution should be exercised in using it in the provision of clinical care. This summary normalizes information from multiple sources, and as a consequence, information in this document may materially change the coding, format and clinical context of patient data. In addition, data may be omitted in some cases. CLINICAL DECISIONS SHOULD BE BASED ON THE PRIMARY CLINICAL RECORDS. [employer] provides no warranty or guarantee of the accuracy or completeness of information in this document.
== END 2023-04-10 11:04 | disposition home or self-care (01) ==
PROVIDERS: Emergency Provider Emergency Medicine; Visit Provider Emergency Medicine
DX: J10.1 Influenza due to other identified influenza virus with other respiratory manifestations (principal); R19.7 Diarrhea, unspecified; R11.2 Nausea with vomiting, unspecified; I10 Essential (primary) hypertension; F17.210 Nicotine dependence, cigarettes, uncomplicated; Z79.899 Other long term (current) drug therapy
CPT/HCPCS: 87631; 99282

== ENCOUNTER 2023-04-16 06:50 | Emergency (ER) | payer SELFPAY ==
[2023-04-16 06:51] VITALS: BP 169/98; PULSE 101; RESP 20; TEMP 36.2; O2SAT 97; BMI 27.3
--- NOTE | 2023-04-16 07:23 | EKG12_ITS ---
Test Reason : SHORT OF BREATH Blood Pressure : / mmHG Vent. Rate : 091 BPM Atrial Rate : 091 BPM P-R Int : 180 ms QRS Dur : 078 ms QT Int : 356 ms P-R-T Axes : 060 037 039 degrees QTc Int : 437 ms Normal sinus rhythm Normal ECG Confirmed by LUDIVINA GUERRA, PHILLIP ([id number]), editor city BRIAN CASTELLANOS ([id number]) on 04/17/2023 7:15:41 AM Referred By: JOSEP Confirmed By:PHILLIP FLORENCE MD
[2023-04-16] MEDS: Albuterol 2.5 MG/3 ML VIAL.NEB. INHALATION ×4 (07:39→09:35)
[2023-04-16] MEDS: Ipratropium/Albuterol Sulfate 3 ML AMPUL.NEB INHALATION (07:39)
[2023-04-16 07:43] VITALS: PULSE 104; RESP 18
--- NOTE | 2023-04-16 07:51 | EDS_ITS ---
HPI History of Present Illness Chief Complaint: Shortness of Breath Informant: patient Onset/Context/Timing Onset: Days Context: Gradual Onset Narrative Narrative: Patient presents secondary to increasing shortness of breath and chest tightness over the past couple of days. He was diagnosed with influenza on April 09. He states his fever seems to abated until this morning. The last couple days he has noted increasing shortness of breath with wheezing and chest tightness. He does have a history of asthma. He does not believe he has been on steroids for quite some time. [facility] Medical History (Updated 04/16/23 @ 10:[address] Divya Nobles MD) Asthma Hypertension Internal hemorrhage Home Medications lisinopril 20 mg-hydrochlorothiazide 25 mg tablet 1 tab PO DAILY HTN 12/02/21 [History Last Taken 01/04/22] hydrocortisone 2.5 % topical cream with perineal applicator (Anusol-HC) 1 applic [place] QHS #30 grams 01/07/22 [Rx Last Taken Unknown] pantoprazole 40 mg tablet,delayed release (Protonix) 40 mg PO DAILY #90 tabs 01/07/22 [Rx Last Taken Unknown] levofloxacin 750 mg tablet 750 mg PO DAILY #4 tabs 04/16/23 [Rx Last Taken Unknown] prednisone 20 mg tablet 40 mg (2 x 20 mg) PO DAILY #8 tabs 04/16/23 [Rx Last Taken Unknown] Allergy/AdvReac Type Severity Reaction Status Date / Time No Known Allergies Allergy Verified 04/16/23 06:53 Family History Other Liver cancer Ovarian cancer Surgical History History of appendectomy Social History household members: spouse Smoking Status: Current every day smoker tobacco type: cigarettes substance use type: does not use ROS ROS ED Constitutional Constitutional ED: Reports fever(s); Denies chills Eyes Eyes: Denies change in vision or discharge from eye(s) ENT ENT ED: Denies discharge from eye(s), rhinorrhea or sore throat Cardiovascular Cardiovascular: Reports chest pain; Denies palpitations Respiratory/Chest Respiratory/Chest: Reports cough and dyspnea Gastrointestinal Gastrointestinal: Denies abdominal pain, nausea or vomiting Genitourinary Genitourinary ED: Denies dysuria Musculoskeletal Musculoskeletal: Denies back pain or extremity pain Integumentary Denies Abrasions or rash Neurologic Neurologic: Denies headache(s) or weakness Psychiatric Psychiatric: Denies anxiety or depression Allergic/Immunologic Allergic/Immunologic ED: Denies lip swelling or urticaria EXAM Physical Exam Const Vital Signs: 04/16/23 06:51 04/16/23 07:43 04/16/23 08:27 Temperature 97.2 F L Temperature Source Temporal Pulse Rate 101 H 104 H 101 H Respiratory Rate 20 H 18 18 Respiratory Effort Respiratory Depth Respiratory Pattern Normal Blood Pressure 169/98 H 150/98 H Blood Pressure Mean 121 115 Pulse Ox 97 94 Oxygen Delivery Method Room Air Room Air 04/16/23 08:29 04/16/23 09:36 04/16/23 11:05 Temperature Temperature Source Pulse Rate 96 Respiratory Rate 18 Respiratory Effort Short of Breath Respiratory Depth Normal Respiratory Pattern Normal Normal Blood Pressure Blood Pressure Mean Pulse Ox 95 Oxygen Delivery Method Room Air Positive well nourished and well developed General Appearance ED: well developed HEENT Reports moist mucous membranes Eyes EOMs intact bilaterally Chest Wall inspection of chest normal and palpation of chest normal Resp normal respiratory effort Resp Narrative: Diminished air movement bilaterally with expiratory wheezes. 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 EKG obtained to evaluate for cardiac arrhythmia/ischemia. IV line established. Labwork obtained to evaluate for leukocytosis, anemia, and electrolyte derangement. Chest x-ray obtained to evaluate for acute lung pathology, cardiac size, or mediastinal abnormality. Patient given Solu-Medrol along with aerosols for his wheezing. History & Record Review Discussion w/independent historian: Patient and Family Additional record(s) reviewed:: Prior ED visit and Prior labs Lab Data Attestation: I reviewed the patient's lab results. Labs: Laboratory Results - last 24 hr 04/16/23 08:00 WBC 10.8 RBC 5.26 Hgb 17.2 H Hct 49.7 MCV 94.5 H MCH 32.7 H MCHC 34.6 RDW Std Deviation 42.5 RDW Coeff of Sravani 12.3 Plt Count 189 MPV 11.3 Immature Gran % (Auto) 0.400 Neut % (Auto) 75.6 H Lymph % (Auto) 17.4 L Grainger % (Auto) 5.9 Eos % (Auto) 0.3 Baso % (Auto) 0.4 Absolute Neuts (auto) 8.2 H Absolute Lymphs (auto) 1.88 Nucleated RBC % 0 D-Dimer Quant (PE/DVT) 0.47 Sodium 138 Potassium 3.3 L Chloride 106 Carbon Dioxide 26.0 Anion Gap 6 BUN 12 Creatinine 1.01 Estim Creat Clear Calc 93.33 Est GFR (MDRD) Af Amer 103 Est GFR (MDRD) Non-Af 85 BUN/Creatinine Ratio 11.9 Glucose 107 H Calcium 9.7 Troponin I High Sens 5 Radiography Chest X-Ray - ED: 1 View, Read by ED Physician and Chronic Changes Diagnostic Testing: Clinical Impression(s) from Imaging Studies Chest X-Ray 04/16/23 08:18 IMPRESSION: Mild increased markings at the left lung base suggestive of atelectasis and/or early infiltrate. Electronically Signed: Chevy Subramanian MD at 8:32 EST , EKG Initial EKG: Attestation: I personally reviewed and interpreted this EKG as follows: Interpretation: Sinus Rhythm (Sinus at 91 with no acute ischemia.) Treatment and Re-Evaluation :: CBC was normal white count of 10.8 with 75% neutrophils. Hemoglobin is concentrated at 17.2. Chemistry studies significant for slightly low potassium at 3.3. Renal function normal. Troponin is normal at 5. EKG is sinus rhythm at 91 bpm with no sign of acute ischemia. Portable chest x-ray per my interpretation was chronic changes. Radiology feels there may be atelectasis versus early infiltrate at the base. After initial aerosols patient does have continued wheezing but does have improved air movement. He is given 2 additional aerosols. Potassium was replaced orally. Given the patient was improved and then had recurrent fever again this morning I will cover him for pneumonia. First dose of Levaquin given here. After final 2 aerosols were given patient does have improved air movement throughout with some continued wheezing and rales. He will be given prescription for Levaquin along with prednisone. He has an albuterol inhaler at home to use. Return instructions. Discharge Plan Triage Chief Complaint: Shortness of Breath ED Provider: Divya Nobles Dx/Rx/DC Orders Clinical Impression: Asthma exacerbation, Pneumonia Instructions: ED Asthma, Acute (Adult), ED Pneumonia (Adult) Prescriptions: New prednisone 20 mg tablet 40 mg PO DAILY Qty: 8 0RF levofloxacin 750 mg tablet 750 mg PO DAILY Qty: 4 0RF No Action lisinopril-hydrochlorothiazide 20-25 mg tablet 1 tab PO DAILY Patient Comments: take 1 tablet by mouth once daily pantoprazole [Protonix] 40 mg tablet,delayed release (DR/EC) 40 mg PO DAILY Qty: 90 0RF hydrocortisone [Anusol-HC] 2.5 % cream with perineal applicator 1 applic [place] QHS Qty: 30 0RF Stand Alone Forms: ED Work / School Excuse Primary Care Provider: Ena Holloway Referrals: Ena Holloway MD [Primary Care Provider] - 1 Week if not improving Disposition Disposition: Home, Self Care Discharge Date/Time: 04/16/23 11:05
[2023-04-16] MEDS: 0.9% Normal Saline (1000mL) 1,000 ML 150 ML IV (08:06)
[2023-04-16] MEDS: MethylPREDNISolone 125 MG/2 ML Vial IV (08:07)
[2023-04-16 08:08] LABS: Absolute Lymphocyte Count 1.88 X10^3/uL (0.83-4.51); Absolute Neutrophil Count 8.2 X10^3/uL (2.0-7.7); Basophil# 0.04 X10^3/uL; Basophil% 0.4 % (0-1); Eosinophil# 0.03 X10^3/uL; Eosinophils% 0.3 % (0-5); Hematocrit 49.7 % (40-54); Hemoglobin 17.2 g/dL (13.0-16.5); Lymphocyte # 1.88 X10^3/ul (0.83-4.51); Lymphocyte % 17.4 % (19-41); Mean Corp Hgb Conc 34.6 g/dL (32-36); Mean Corpuscular Hgb 32.7 pg (27.0-32.0); Mean Corpuscular Volume 94.5 fL (80-94); Mean Platelet Vol. 11.3 fl (6.2-12.0); Monocyte# 0.64 X10^3/uL; Monocyte% 5.9 % (0-10); NRBC Flagged by Analyzer 0 % (0-5); Neutrophil # 8.19 X10^3/uL (2.7-7.7); Neutrophil % 75.6 % (47-70); Platelet Count 189 K/mm3 (150-450); RBC Distribution Width CV 12.3 % (11.6-14.6); RBC Distribution Width SD 42.5 fl (35.1-43.9); Red Blood Count 5.26 M/mm3 (4.6-6.2); White Blood Count 10.8 K/mm3 (4.4-11.0)
--- NOTE | 2023-04-16 08:18 | RAD_ITS ---
STUDY: X-RAY CHEST REASON FOR EXAM: Male, 43 years old. Sob TECHNIQUE: Single AP portable view of the chest. COMPARISON: Comparison is made with prior study dated February 28, 2017. FINDINGS: EKG electrodes are seen. Minimal increased markings at the left lung base suggestive of left basilar atelectasis and/or early infiltrate. There is no demonstrated pleural abnormality. Normal size heart. Normal mediastinum and sherrell. Normal visualized pulmonary arteries. Normal visualized aortic arch and descending thoracic aorta. Normal visualized thoracic spine. Normal visualized ribs, clavicles, and shoulders. There is no demonstrated abnormality of the visualized soft tissue structures of the upper abdomen. RAD/Chest 1 View (Portable) IMPRESSION: Mild increased markings at the left lung base suggestive of atelectasis and/or early infiltrate. Electronically Signed: Chevy Subramanian MD at 8:32 EST ,
[2023-04-16 08:27] VITALS: BP 150/98; PULSE 101; RESP 18; O2SAT 94
[2023-04-16 08:28] LABS: Anion Gap 6 (5-15); BUN 12 mg/dL (7-18); BUN/Creat Ratio 11.9 RATIO (10-20); Calcium,Total 9.7 mg/dL (8.5-10.1); Chloride 106 mmol/L (98-107); Creatinine, Serum 1.01 mg/dL (0.70-1.30); D-Dimer Quantitative (DVT/PE) 0.47 FEU/ug/m (0.27-0.49); EST Glomerular Filtration Rate 85 mL/min (>60); Est Glom Filt Rate - Afr Amer 103 mL/min (>60); Estimated Creatinine Clearance 93.33 ml/min; Glucose 107 mg/dL (74-106); Potassium 3.3 mmol/L (3.5-5.1); Sodium Level 138 mmol/L (136-145); Troponin-I HS 5 pg/mL (3.0-78.0)
[2023-04-16 08:29] VITALS: O2SAT 94
--- OUTSIDE RECORDS SUMMARY | 2023-04-16 08:39 | XMS RPT_ITS | CCD ---
Author Name Unknown Address [address] [place] [address] Organization [facility] Results Test Name Value Interpretation [...] DATE CREATED AUTHOR AUTHOR'S ORGANIZ ATION 05/26/2021 [facility] PERTAINING TO PATIENTS WHO ARE [...] BE BASED ON THE PRIMARY CLINICAL RECORDS. [employer] provides no warranty or guarantee of the accuracy or completeness of information in this document.
[2023-04-16] MEDS: Potassium Chloride Oral Tablet 20 MEQ 40 MEQ PO (09:28)
[2023-04-16] MEDS: levoFLOXacin 750 MG Tablet PO (09:28)
[2023-04-16 09:36] VITALS: PULSE 96; RESP 18
[2023-04-16 11:05] VITALS: O2SAT 95
== END 2023-04-16 11:05 | disposition home or self-care (01) ==
PROVIDERS: Emergency Provider Emergency Medicine; Visit Provider Emergency Medicine
DX: J18.9 Pneumonia, unspecified organism (principal); J45.901 Unspecified asthma with (acute) exacerbation; I10 Essential (primary) hypertension; E87.6 Hypokalemia; F17.210 Nicotine dependence, cigarettes, uncomplicated; Z79.899 Other long term (current) drug therapy
CPT/HCPCS: 71045; 80048; 84484; 85025; 85379; 93005; 94640; 99283; J7030; A4216

== ENCOUNTER 2023-07-26 11:26 | Emergency (ER) | payer SELFPAY ==
[2023-07-26 11:27] VITALS: BP 140/96; PULSE 84; RESP 16; TEMP 36.2; O2SAT 100; BMI 27.5
--- NOTE | 2023-07-26 11:42 | EDS_ITS ---
HPI History of Present Illness HPI Narrative: Patient presents with left shoulder pain that has been getting worse over the past 3 days. Patient denies any trauma or injury. Patient describes it as aching and burning. Patient states it began rather suddenly 3 days ago. Patient states it is worse whenever he lays on it. Patient states it is also worse with movement. Patient states nothing seems to help with it. Patient does admit to some tingling into his fingers but denies any weakness. Chief Complaint: Upper Extremity Injury Informant: patient Onset/Context/Timing Onset: Days (3) Context: Gradual Onset Timing: Continuous Quality of Pain: Aching and Burning Location: Left shoulder Worsened by: Laying on left side and movement of left shoulder Relieved by: Nothing Associated Symptoms Associated Symptoms: Positive for Parasthesia; Negative for Weakness or Loss of Funtion [facility] Medical History Asthma Hypertension Internal hemorrhage Home Medications lisinopril 20 mg-hydrochlorothiazide 25 mg tablet 1 tab PO DAILY HTN 12/02/21 [History Last Taken 01/04/22] hydrocortisone 2.5 % topical cream with perineal applicator (Anusol-HC) 1 applic NE QHS #30 grams 01/07/22 [Rx Last Taken Unknown] pantoprazole 40 mg tablet,delayed release (Protonix) 40 mg PO DAILY #90 tabs 01/07/22 [Rx Last Taken Unknown] levofloxacin 750 mg tablet 750 mg PO DAILY #4 tabs 04/16/23 [Rx Last Taken Unknown] prednisone 20 mg tablet 40 mg (2 x 20 mg) PO DAILY #8 tabs 04/16/23 [Rx Last Taken Unknown] naproxen 500 mg tablet 500 mg PO BID PRN #20 tabs 07/26/23 [Rx Last Taken Unknown] Allergy/AdvReac Type Severity Reaction Status Date / Time No Known Allergies Allergy Verified 07/26/23 11:28 Family History Other Liver cancer Ovarian cancer Surgical History History of appendectomy Social History household members: spouse Smoking Status: Current every day smoker tobacco type: cigarettes substance use type: does not use ROS ROS ED Constitutional Constitutional ED: Denies chills or fever(s) Eyes Eyes: Denies blurry vision or change in vision ENT ENT ED: Denies rhinorrhea or sore throat Cardiovascular Cardiovascular: Denies chest pain or palpitations Respiratory/Chest Respiratory/Chest: Denies cough or dyspnea Gastrointestinal Gastrointestinal: Denies nausea or vomiting Genitourinary Genitourinary ED: Denies dysuria or hematuria Musculoskeletal Musculoskeletal: Denies back pain or neck pain Integumentary Denies abscess or rash Neurologic Neurologic: Denies headache(s) or weakness Allergic/Immunologic Allergic/Immunologic ED: Denies mouth swelling or urticaria EXAM Physical Exam Const Vital Signs: 07/26/23 11:27 Temperature 97.2 F L Temperature Source Temporal Pulse Rate 84 Respiratory Rate 16 Blood Pressure 140/96 H Blood Pressure Mean 110 Pulse Ox 100 Oxygen Delivery Method Room Air Positive well nourished and well developed General Appearance ED: well developed and NAD HEENT Reports moist mucous membranes Neck full ROM and supple Extremity Extremity Narrative: There is diffuse tenderness over the left shoulder. There is no edema or ecchymosis. There is no bony crepitance or step-off noted. Range of motion was limited in flexion, extension, and abduction secondary to pain. There is no pain with internal or external rotation. There is no deformity noted. Sensation was intact to light touch in the radial, median, ulnar, and axillary areas. Strength is 5/5 in the radial, median, and ulnar areas. Radial pulses are equal bilaterally. Neuro oriented x3, CN's II-XII intact bilaterally, moves all extremities, no focal motor deficits and no sensory deficits noted Sensorium / Orientation: alert Motor Exam: strength 5/5 throughout Psych mental status grossly normal MDM MDM MDM Narrative Medical decision making narrative: Differential diagnosis includes degenerative arthritis, occult fracture, rotator cuff tear, tendinitis, and contusion. X-rays of the left shoulder will be obtained to assess for degenerative arthritis and occult fracture. Radiography Diagnostic Testing: X-rays of the left shoulder were obtained. There are 4 views. On my independent interpretation, there is no acute fracture or dislocation noted. There are mild degenerative changes noted. Radiologist also interpreted the x- rays and agrees. Treatment and Re-Evaluation Narrative: Patient was given a dose of Naprosyn here. Patient was advised of his findings. Patient was instructed use ice to the area. Patient was given a prescription for Naprosyn. Patient was instructed to follow-up with his primary care physician in 5 to 7 days. Patient understood and was agreeable with the plan. All questions were answered. Discharge Plan Triage Chief Complaint: Upper Extremity Injury ED Provider: Rhett Tyler Dx/Rx/DC Orders Clinical Impression: Acute pain of left shoulder, Hypertension Instructions: ED Shoulder Pain, Uncertain Cause Prescriptions: New naproxen 500 mg tablet 500 mg PO BID PRN Qty: 20 0RF No Action lisinopril-hydrochlorothiazide 20-25 mg tablet 1 tab PO DAILY Patient Comments: take 1 tablet by mouth once daily pantoprazole [Protonix] 40 mg tablet,delayed release (DR/EC) 40 mg PO DAILY Qty: 90 0RF hydrocortisone [Anusol-HC] 2.5 % cream with perineal applicator 1 applic NE QHS Qty: 30 0RF prednisone 20 mg tablet 40 mg PO DAILY Qty: 8 0RF levofloxacin 750 mg tablet 750 mg PO DAILY Qty: 4 0RF Primary Care Provider: Ena Holloway Referrals: Ena Holloway MD [Primary Care Provider] - 5-7 Days Activity Restrictions/Additional Instructions: Use ice to the left shoulder 4-5 times a day for approximately 20 minutes at a time. Do range of motion exercises after icing. Disposition Disposition: Home, Self Care
--- NOTE | 2023-07-26 12:04 | RAD_ITS ---
EXAM: XR LEFT SHOULDER COMPLETE, 2 OR MORE VIEWS CLINICAL INDICATION: Injury/Pain TECHNIQUE: Two or more views of the left shoulder. COMPARISON: No relevant prior studies available. FINDINGS: BONES/JOINTS: Unremarkable. No acute fracture. No subluxation. Normal alignment. Preservation of the joint space. No sclerotic or destructive changes observed. SOFT TISSUES: Unremarkable. No soft tissue swelling or gas. No radiopaque foreign body. RAD/Shoulder min 2 Views IMPRESSION: Negative left shoulder x-rays. Electronically Signed: Junior Avila MD at 12:45 EDT ,
[2023-07-26] MEDS: Naproxen 500 MG Tablet PO (12:10)
[2023-07-26 13:27] VITALS: BP 121/85; PULSE 74; RESP 16; TEMP 36.9; O2SAT 100
== END 2023-07-26 13:28 | disposition home or self-care (01) ==
PROVIDERS: Emergency Provider Emergency Medicine; Visit Provider Emergency Medicine
DX: M25.512 Pain in left shoulder (principal); I10 Essential (primary) hypertension; J45.909 Unspecified asthma, uncomplicated; F17.210 Nicotine dependence, cigarettes, uncomplicated
CPT/HCPCS: 73030; 99282

== ENCOUNTER 2024-05-02 01:23 | Emergency (ER) | payer OTHER, SELFPAY ==
[2024-05-02 01:24] VITALS: BP 173/98; PULSE 89; RESP 16; TEMP 36.6; O2SAT 97; BMI 28.2
--- NOTE | 2024-05-02 01:35 | ED.VIS.GI ---
HPI HPI - GI History of Present Illness Chief Complaint: GI Bleed Informant: patient Abdominal Pain/Flank Pain Onset: Days (2) Context: Gradual Onset Timing: Continuous Quality: Sharp Location: RUQ and RLQ Worsened by: - (Standing) Relieved by: Nothing Nausea/Vomiting/Emesis GI Symptom: Positive for Nausea; Negative for Vomiting Diarrhea/Melena/Hematochezia GI Symptom: Positive for Melena Onset: Days (2) Stool Quality: Positive for Black Associated Symptoms Associated Symptoms: Positive for Hematuria; Negative for Dysuria or Frequency Narrative Narrative: Patient presents with rectal bleeding that has been getting worse over the past 2 days. Patient states he has had dark stools for the past 2 days. Patient admits to some nausea but denies any vomiting. Patient admits to some right-sided abdominal pain. Patient describes it as sharp. Patient states his symptoms are worse with standing. Patient denies any fevers or chills. Patient denies any hematemesis or coffee-ground emesis. Patient admits to some hematuria but denies any dysuria or frequency. PFSH PFSH Medical History Migraines Asthma Internal hemorrhage Hypertension Home Medications ?Medication ?Instructions ?Recorded ?Last Taken ?Type hydrocortisone 2.5 % topical cream 1 applic LA QHS #30 grams 01/07/22 Unknown Rx with perineal applicator (Anusol-HC) naproxen 500 mg tablet 500 mg PO BID PRN #20 tabs 07/26/23 Unknown Rx Allergy/AdvReac Type Severity Reaction Status Date / Time No Known Allergies Allergy Verified 05/02/24 01:25 Family History Other Liver cancer Ovarian cancer Surgical History History of appendectomy Social History household members: spouse Smoking Status: Light Smoker (<10/day) substance use type: does not use ROS ROS ED Constitutional Constitutional ED: Reports chills; Denies fever(s) Eyes Eyes: Denies blurry vision or change in vision ENT ENT ED: Denies rhinorrhea or sore throat Cardiovascular Cardiovascular: Denies chest pain or palpitations Respiratory/Chest Respiratory/Chest: Denies cough or dyspnea Gastrointestinal Gastrointestinal: Reports abdominal pain, melena and nausea; Denies vomiting Genitourinary Genitourinary ED: Reports hematuria; Denies dysuria Musculoskeletal Musculoskeletal: Denies back pain or neck pain Integumentary Denies abscess or rash Neurologic Neurologic: Denies headache(s) or weakness Allergic/Immunologic Allergic/Immunologic ED: Denies mouth swelling or urticaria EXAM Physical Exam Const Vital Signs: 05/02/24 01:24 05/02/24 02:26 05/02/24 02:40 Temperature 97.8 F Temperature Source Oral Pulse Rate 89 78 Pulse Rate [Lying] 85 Pulse Rate [Sitting (for 1 minute prior to obtaining)] 80 Pulse Rate [Standing (for 1 minute prior to obtaining)] 66 Respiratory Rate 16 14 Blood Pressure 173/98 H 133/67 H Blood Pressure [Lying] 141/96 H Blood Pressure [Sitting (for 1 minute prior to obtaining)] 140/87 H Blood Pressure [Standing (for 1 minute prior to obtaining)] 142/110 H Blood Pressure Mean 123 89 Blood Pressure Mean [Lying] 111 Blood Pressure Mean [Sitting (for 1 minute prior to obtaining)] 104 Blood Pressure Mean [Standing (for 1 minute prior to obtaining)] 120 Pulse Ox 97 99 Oxygen Delivery Method Room Air 05/02/24 03:24 Temperature Temperature Source Pulse Rate 67 Pulse Rate [Lying] Pulse Rate [Sitting (for 1 minute prior to obtaining)] Pulse Rate [Standing (for 1 minute prior to obtaining)] Respiratory Rate 16 Blood Pressure 133/67 H Blood Pressure [Lying] Blood Pressure [Sitting (for 1 minute prior to obtaining)] Blood Pressure [Standing (for 1 minute prior to obtaining)] Blood Pressure Mean 89 Blood Pressure Mean [Lying] Blood Pressure Mean [Sitting (for 1 minute prior to obtaining)] Blood Pressure Mean [Standing (for 1 minute prior to obtaining)] Pulse Ox 98 Oxygen Delivery Method Room Air Positive well nourished and well developed General Appearance ED: well developed and NAD HEENT Reports moist mucous membranes Neck supple and no JVD Resp normal respiratory effort and clear to auscultation bilaterally Cardio regular rate and regular rhythm GI non-distended Palpation: soft and tender RLQ and RUQ; Negative for guarding or rebound tenderness present Neuro CN's II-XII intact bilaterally, moves all extremities and no sensory deficits noted Sensorium / Orientation: alert Motor Exam: strength 5/5 throughout Psych mental status grossly normal MDM MDM MDM Narrative Medical decision making narrative: Differential diagnosis includes anemia, colitis, diverticulitis, upper gastrointestinal bleeding, lower gastrointestinal bleeding, peptic ulcer disease, duodenal ulcer, pancreatitis, and electrolyte abnormality. CBC will be obtained to assess for leukocytosis and anemia. Comprehensive metabolic profile will be obtained to assess for cardiac function, renal function, and electrolyte abnormality. Lipase will be obtained to assess for pancreatitis. PT with INR and PTT will be obtained to assess for coagulopathy. CT scan of the abdomen and pelvis will be obtained to assess for colitis and diverticulitis. Lab Data Attestation: I reviewed the patient's lab results. Lab results narrative: CBC was reviewed. Hemoglobin was slightly elevated at 17.9. This is consistent with previous results. Comprehensive metabolic profile was reviewed and was within normal limits. BUN specifically was normal at 9. PT with INR and PTT were reviewed and were within normal limits. Lipase was reviewed and was normal at 42. Stool for occult blood was reviewed and was positive. Labs: Laboratory Results - last 24 hr 05/02/24 01:33 WBC 9.8 RBC 5.36 Hgb 17.9 H Hct 49.2 MCV 91.8 MCH 33.4 H MCHC 36.4 H RDW Std Deviation 40.3 RDW Coeff of Sravani 12.0 Plt Count 221 MPV 11.6 Immature Gran % (Auto) 0.300 Neut % (Auto) 40.3 L Lymph % (Auto) 51.0 H [place] % (Auto) 6.4 Eos % (Auto) 1.3 Baso % (Auto) 0.7 Absolute Neuts (auto) 3.9 Absolute Lymphs (auto) 4.97 H Nucleated RBC % 0 PT 12.7 INR 0.9 APTT 29.0 Sodium 143 Potassium 3.9 Chloride 112 H Carbon Dioxide 24.0 Anion Gap 7 BUN 9 Creatinine 0.95 Estim Creat Clear Calc 107.03 Est GFR (MDRD) Af Amer 110 Est GFR (MDRD) Non-Af 91 BUN/Creatinine Ratio 9.5 L Glucose 80 Calcium 9.2 Total Bilirubin 0.60 AST 25 ALT 56 Alkaline Phosphatase 56 Total Protein 7.9 Albumin 4.4 Globulin 3.5 Albumin/Globulin Ratio 1.3 Lipase 42 Radiography Diagnostic Testing: Clinical Impression(s) from Imaging Studies Abdomen/Pelvis CT 05/02/24 02:03 IMPRESSION: No acute findings. Colonic diverticulosis without evidence of acute diverticulitis. Electronically Signed: Jamee Taylor MD at 4:14 EST , CT scan of the abdomen pelvis was obtained. There is diverticulosis but no evidence of diverticulitis. There is no free air or free fluid. There is no acute process noted. This was interpreted by the radiologist and was also independently reviewed by myself. Treatment and Re-Evaluation :: Smoking cessation was discussed. Patient was given IV fluids, morphine, and Zofran. Patient was advised of his findings. Given that his hemoglobin is stable and his BUN is normal, I do not feel patient requires emergent endoscopy or admission to the hospital at this time. Patient was instructed to start with a bland diet. 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 Patient understood and was agreeable with the plan. All questions were answered. Discharge Plan Triage Chief Complaint: GI Bleed ED Provider: Rhett Tyler Dx/Rx/DC Orders Clinical Impression: Gastrointestinal bleeding, Tobacco use Instructions: ED Upper GI Bleeding (Stable) Prescriptions: No Action hydrocortisone [Anusol-HC] 2.5 % cream with perineal applicator 1 applic LA QHS Qty: 30 0RF naproxen 500 mg tablet 500 mg PO BID PRN Qty: 20 0RF Primary Care Provider: Care Physician,No Primary Referrals: Ena Holloway MD [Non-Staff] - 5-7 Days Lucas Barfield DO [Med Staff - Active Staff] - 5-7 Days Print Language: Egyptian Disposition Disposition: Home, Self Care
--- NOTE | 2024-05-02 02:03 | CT_ITS ---
EXAM: CT Abdomen And Pelvis W/ Contrast Injection HISTORY: Abdominal pain rectal bleeding for months, right sided lower abd pain increasing x 2 days, hx appy and htn TECHNIQUE: Routine protocol CT abdomen pelvis. IV Contrast: IV 100mL Isovue-[id number] . Oral Contrast: without. Sagittal and coronal images were reconstructed. RADIATION DOSAGE (If Supplied By Facility): CTDIvol = ( 14.39 ) mGy, DLP = ( 1052.80 ) mGycm Individualized dose optimization techniques were used for this CT. COMPARISON: CT abdomen pelvis 01/06/2022. LIMITATIONS: None. FINDINGS: LOWER CHEST: Lung bases are clear. LIVER: Fatty infiltration. Low-attenuation lesion in the left lobe approximately 3.5 cm, smaller adjacent lesion, with peripheral nodular enhancement consistent with hemangiomas, and not significantly changed compared to the prior. GALLBLADDER/BILE DUCTS: Unremarkable. PANCREAS: Unremarkable. SPLEEN: Unremarkable. ADRENAL GLANDS: Unremarkable. KIDNEYS / URETERS: Unremarkable. BOWEL / MESENTERY: Scattered diverticula throughout the colon. No bowel obstruction. APPENDIX: Not identified. PERITONEUM: No free air. No free fluid. VESSELS: Abdominal aorta is normal caliber. RETROPERITONEUM: Unremarkable. REPRODUCTIVE ORGANS: Unremarkable. BLADDER: Unremarkable. ABDOMINAL WALL: Unremarkable. BONES: No acute abnormality. OTHER: None. CT/Abdomen/Pelvis W IV Cont ONLY IMPRESSION: No acute findings. Colonic diverticulosis without evidence of acute diverticulitis. Electronically Signed: Jamee Taylor MD at 4:14 EST ,
[2024-05-02 02:12] LABS: Absolute Lymphocyte Count 4.97 X10^3/uL (0.83-4.51); Absolute Neutrophil Count 3.9 X10^3/uL (2.0-7.7); Basophil# 0.07 X10^3/uL; Basophil% 0.7 % (0-1); Eosinophil# 0.13 X10^3/uL; Eosinophils% 1.3 % (0-5); Hematocrit 49.2 % (40-54); Hemoglobin 17.9 g/dL (13.0-16.5); Lymphocyte # 4.97 X10^3/ul (0.83-4.51); Mean Corp Hgb Conc 36.4 g/dL (32-36); Mean Corpuscular Hgb 33.4 pg (27.0-32.0); Mean Corpuscular Volume 91.8 fL (80-94); Mean Platelet Vol. 11.6 fl (6.2-12.0); Monocyte# 0.62 X10^3/uL; Monocyte% 6.4 % (0-10); NRBC Flagged by Analyzer 0 % (0-5); Neutrophil # 3.93 X10^3/uL (2.7-7.7); Neutrophil % 40.3 % (47-70); Platelet Count 221 K/mm3 (150-450); RBC Distribution Width SD 40.3 fl (35.1-43.9); Red Blood Count 5.36 M/mm3 (4.6-6.2); White Blood Count 9.8 K/mm3 (4.4-11.0)
[2024-05-02 02:26] VITALS: BP 133/67; PULSE 78; RESP 14; O2SAT 99
[2024-05-02 02:33] LABS: International Normalized Ratio 0.9; Prothrombin Time (Protime)PT. 12.7 SECONDS (11.7-14.9)
[2024-05-02 02:37] LABS: ALB/GLOB Ratio 1.3 RATIO (0.9-2.4); AST(SGOT) 25 U/L (15-37); Alanine Aminotransfer ALT/SGPT 56 U/L (16-61); Albumin, Serum 4.4 g/dL (3.2-5.0); Alkaline Phosphatase 56 U/L (45-117); Anion Gap 7 (5-15); BUN 9 mg/dL (7-18); BUN/Creat Ratio 9.5 RATIO (10-20); Calcium,Total 9.2 mg/dL (8.5-10.1); Chloride 112 mmol/L (98-107); Creatinine, Serum 0.95 mg/dL (0.70-1.30); EST Glomerular Filtration Rate 91 mL/min (>60); Est Glom Filt Rate - Afr Amer 110 mL/min (>60); Estimated Creatinine Clearance 107.03 ml/min; Globulin 3.5 g/dL (2.2-4.2); Glucose 80 mg/dL (74-106); Lipase 42 U/L (13-75); Potassium 3.9 mmol/L (3.5-5.1); Protein, Total 7.9 g/dL (6.4-8.2); Sodium Level 143 mmol/L (136-145)
[2024-05-02 02:40] VITALS: BP 140/87; BP 141/96; BP 142/110; PULSE 66; PULSE 80; PULSE 85
[2024-05-02] MEDS: Morphine 4 MG/ML Syringe IV (02:41)
[2024-05-02] MEDS: Ondansetron 4 MG/2 ML Vial IV (02:41)
[2024-05-02] MEDS: 0.9% Normal Saline (1000mL) 1,000 ML 999 ML IV (02:41)
[2024-05-02 03:24] VITALS: BP 133/67; PULSE 67; RESP 16; O2SAT 98
== END 2024-05-02 04:43 | disposition home or self-care (01) ==
PROVIDERS: Emergency Provider Emergency Medicine; Visit Provider Emergency Medicine
DX: K92.1 Melena (principal); R11.0 Nausea; R10.9 Unspecified abdominal pain; R31.9 Hematuria, unspecified; F17.200 Nicotine dependence, unspecified, uncomplicated
CPT/HCPCS: 74177; 80053; 82274; 83690; 85025; 85610; 85730; 96361; 96374; 96375; 99284; Q9967; A4216; J2405

== ENCOUNTER 2024-10-15 12:05 | Emergency (ER) | payer OTHER, SELFPAY ==
[2024-10-15] VITALS (14 sets, daily range): BP systolic 110–151; BP diastolic 93–138; PULSE 57–92; RESP 10–22; TEMP 36.7–37.3; O2SAT 97–99; BMI 27.2
--- NOTE | 2024-10-15 12:15 | EKG12_ITS ---
Test Reason : CP Blood Pressure : */* mmHG Vent. Rate : 72 BPM Atrial Rate : 72 BPM P-R Int : 190 ms QRS Dur : 82 ms QT Int : 390 ms P-R-T Axes : 51 24 36 degrees QTcB Int : 427 ms Normal sinus rhythm Normal ECG Confirmed by LUDIVINA GUERAR, PHILLIP ([id number]), content editor ELIECER GUERRA ([id number]) on 10/17/2024 11:31:52 AM Referred By: Confirmed By: PHILLIP FLORENCE MD
--- NOTE | 2024-10-15 12:22 | ED.VIS.CHEST ---
HPI <ZAHRAA Lind - Last Filed: 10/15/24 15:29> History of Present Illness Chief Complaint: Chest Pain Narrative Narrative: 44-year-old male with past medical history of asthma, GI bleed, tobacco use presents with chest pain. States last evening he noted mild left-sided chest pain. This morning when he woke up the chest pain was sharp and more intense on the left side and he has been nauseated and vomited several times. The chest pain does not radiate anywhere. He has no jaw or arm pain. No shortness of breath. He has had a recent cough but denies fever or chills. He also has a history of GI bleed and had 2 episodes of bright red blood per rectum in the last day. States this occurred when he had the urge to have a bowel movement but all that came out was a small amount of dark red blood. He has no abdominal or rectal pain. He is not on blood thinners. He takes no medications. He had upper and lower scopes with Dr. Barfield in 2021 states he treated some area of bleeding. He denies history of DVT/PE, leg pain or swelling, recent surgery or travel, hemoptysis, hormone use PFSH <ZAHRAA Lind - Last Filed: 10/15/24 15:29> FOR[facility]LY [facility], [facility] Medical History Migraines Asthma Internal hemorrhage Hypertension Home Medications ?Medication ?Instructions ?Recorded ?Last Taken ?Type NK 10/15/24 Unknown History ondansetron HCl 4 mg tablet 4 mg PO Q6H PRN nausea and 10/15/24 Unknown Rx vomiting #12 tabs Allergy/AdvReac Type Severity Reaction Status Date / Time No Known Allergies Allergy Verified 10/15/24 12:07 Family History Other Liver cancer Ovarian cancer Surgical History History of appendectomy Social History household members: spouse Smoking Status: Light Smoker (<10/day) substance use type: does not use ROS <ZAHRAA Lind - Last Filed: 10/15/24 15:29> ROS ED ROS Narrative Constitutional: Negative for fever, chills, malaise. CVS: Positive for chest pain. Negative for palpitations, syncope. Respiratory: Positive for cough. No shortness of breath. GI: Positive for nausea, vomiting. Negative for abdominal pain, melena, hematochezia. EXAM <ZAHRAA Lind - Last Filed: 10/15/24 15:29> Physical Exam Narrative Exam Narrative: CONST: Patient sitting in no acute distress. EYES: Normal inspection. NECK: Normal inspection. RESP: No respiratory distress, CTAB. Tender over left chest wall. No deformity or crepitus. CVS: Regular rate and rhythm, no murmur, no gallop. ABD: Soft and nontender, no guarding or rebound, nondistended, no hepatosplenomegaly. SKIN: Color normal, no rash, warm, dry, intact. EXTREMITIES: Normal appearance, no pedal edema. NEURO: Alert and answering questions appropriately. PSYCH: Normal affect. Const Vital Signs: 10/15/24 12:05 10/15/24 12:38 10/15/24 12:43 Temperature 99.1 F Temperature Source Oral Pulse Rate 82 72 Respiratory Rate 16 16 Respiratory Effort Blood Pressure 110/100 H 135/96 H Blood Pressure Mean 103 109 Pulse Ox 98 99 Oxygen Delivery Method Room Air Room Air Room Air 10/15/24 12:43 10/15/24 12:45 10/15/24 12:52 Temperature Temperature Source Pulse Rate 77 Respiratory Rate 20 H Respiratory Effort Normal Non-Labored Blood Pressure 134/101 H Blood Pressure Mean 113 Pulse Ox 99 Oxygen Delivery Method 10/15/24 13:00 10/15/24 13:15 10/15/24 13:30 Temperature Temperature Source Pulse Rate 92 65 65 Respiratory Rate 22 H 10 L 11 L Respiratory Effort Blood Pressure 151/138 H 148/113 H 134/98 H Blood Pressure Mean 144 122 111 Pulse Ox 98 99 Oxygen Delivery Method 10/15/24 13:45 10/15/24 14:00 10/15/24 14:15 Temperature Temperature Source Pulse Rate 74 57 L 64 Respiratory Rate 12 14 12 Respiratory Effort Blood Pressure 134/104 H 132/102 H 147/93 H Blood Pressure Mean 114 112 111 Pulse Ox 97 97 99 Oxygen Delivery Method 10/15/24 14:30 10/15/24 14:45 10/15/24 15:00 Temperature Temperature Source Pulse Rate 60 62 62 Respiratory Rate 13 17 19 H Respiratory Effort Blood Pressure 134/98 H 135/97 H 137/97 H Blood Pressure Mean 110 110 110 Pulse Ox 98 98 98 Oxygen Delivery Method 10/15/24 15:18 Temperature 98.0 F Temperature Source Pulse Rate 78 Respiratory Rate 16 Respiratory Effort Blood Pressure 137/97 H Blood Pressure Mean 110 Pulse Ox 99 Oxygen Delivery Method <Dr. Kenny Wells, DO - Last Filed: 10/15/24 15:14> Physical Exam Const Vital Signs: 10/15/24 12:05 10/15/24 12:38 10/15/24 12:43 Temperature 99.1 F Temperature Source Oral Pulse Rate 82 72 Respiratory Rate 16 16 Respiratory Effort Blood Pressure 110/100 H 135/96 H Blood Pressure Mean 103 109 Pulse Ox 98 99 Oxygen Delivery Method Room Air Room Air Room Air 10/15/24 12:43 10/15/24 12:45 10/15/24 12:52 Temperature Temperature Source Pulse Rate 77 Respiratory Rate 20 H Respiratory Effort Normal Non-Labored Blood Pressure 134/101 H Blood Pressure Mean 113 Pulse Ox 99 Oxygen Delivery Method 10/15/24 13:00 10/15/24 13:15 10/15/24 13:30 Temperature Temperature Source Pulse Rate 92 65 65 Respiratory Rate 22 H 10 L 11 L Respiratory Effort Blood Pressure 151/138 H 148/113 H 134/98 H Blood Pressure Mean 144 122 111 Pulse Ox 98 99 Oxygen Delivery Method 10/15/24 13:45 10/15/24 14:00 10/15/24 14:15 Temperature Temperature Source Pulse Rate 74 57 L 64 Respiratory Rate 12 14 12 Respiratory Effort Blood Pressure 134/104 H 132/102 H 147/93 H Blood Pressure Mean 114 112 111 Pulse Ox 97 97 99 Oxygen Delivery Method 10/15/24 14:30 10/15/24 14:45 10/15/24 15:00 Temperature Temperature Source Pulse Rate 60 62 62 Respiratory Rate 13 17 19 H Respiratory Effort Blood Pressure 134/98 H 135/97 H 137/97 H Blood Pressure Mean 110 110 110 Pulse Ox 98 98 98 Oxygen Delivery Method 10/15/24 15:18 Temperature 98.0 F Temperature Source Pulse Rate 78 Respiratory Rate 16 Respiratory Effort Blood Pressure 137/97 H Blood Pressure Mean 110 Pulse Ox 99 Oxygen Delivery Method [facility] <ZAHRAA Lind - Last Filed: 10/15/24 15:29> [employer] Narrative Medical decision making narrative: History gathered from: Patient and significant other Differential includes but not limited to ACS, PE, anemia 44-year-old male presents with chest pain started last evening. He also developed nausea and vomiting this morning. No hematemesis or abdominal pain. He also reports 2 episodes of bright red bleeding over the last 24 hours. He has had intermittent bright red bleeding for months and has had upper and lower scopes for it in the past with Dr. Castellon. He has no cardiac history. No history of DVT/PE or risk factors. He appears well and nontoxic. Vitals are stable. Overall exam benign. Abdomen on my exam is soft, nontender. EKG is nonischemic and troponin x 2 normal. CBC shows elevated hemoglobin at 17.8 which is his baseline. BMP unremarkable. CTA of the chest/abdomen/pelvis shows no acute findings. He feels improved after fluids, morphine and Zofran and is tolerating p.o. intake. I recommend he establish with a primary care doctor and provided information to the [place] [facility]. I also advised he follow-up with Dr. Barfield the recurrent GI bleeding. His hemoglobin and vitals are stable so I do not think he requires admission for any emergent testing. I prescribed Zofran and recommended [id number] pain relievers. Return if symptoms worsen. He was discharged in stable condition. External records reviewed: 01/03/2022 colonoscopy Lower GI bleeding likely from 3 sources being polycythemia associated hemorrhagic colitis, diverticular and hemorrhoidal. 01/06/2022 EGD Bleeding Crystal-Thorpe tear was treated with heater probe. Small bilateral hernia. I have personally performed a face to face assessment of the patient and have reviewed the [facility] Note. I performed a substantive portion of the visit including all aspects of the following. My romero findings include: History is [patient presents with chest pain that started last evening that he describes as sharp in the left side of his chest. Patient also developed vomiting and he vomited multiple times last night and 3-4 times today. Denies any blood in his emesis. Patient's had some intermittent blood in his stool for months and apparently has had scope for this. Patient has been moving this weekend and has been doing some lifting. Describes some abdominal discomfort in the left upper quadrant. Said no fever. No diarrhea. No prior abdominal surgeries. He has no heart history.] Exam is [HEENT-PERRLA, EOMI. Cranial nerves II through XII grossly intact. TMs clear. Mucous membranes moist. No adenopathy. Cardiovascular-regular rate and rhythm without murmur or ectopy. Patient has tenderness palpation over the left anterior chest wall that somewhat seems to reproduce his pain. Lungs-clear to auscultation, chest wall stable without crepitus or subcu emphysema Abdomen-normoactive bowel sounds, soft. Patient has tenderness palpation over the left upper quadrant with some guarding. There is no rebound, rigidity, or peritoneal signs. No mass palpated Extremities-intact ?4, normal range of motion, normal pulses, atraumatic] Medical Decison Making [patient presents with vomiting and left-sided chest pain. Pain somewhat reproducible. It is sharp and atypical. No real significant risk factors for PE. IV line established. He was medicated morphine and Zofran. CBC with differential obtained showed white count 7.7 with hemoglobin of 17.8 and platelet count of 209. Chemistries unremarkable. Troponin was less than 6. Delta troponin was also less than 6. We performed CTA of chest abdomen pelvis that was unremarkable. At this point will discharge to home. Etiology of his chest discomfort I suspect may be musculoskeletal. Unclear why he is vomiting although it is possible he may be coming down with a viral enteritis. Patient's rectal bleeding is chronic and has had recent scope. He is stable and do not feel he requires admission. Will send home with prescription for Zofran.] Other additions or changes: [None] Lab Data Attestation: I reviewed the patient's lab results. Labs: Laboratory Results - last 24 hr 10/15/24 10/15/24 12:40 14:21 WBC 7.7 RBC 5.32 Hgb 17.8 H Hct 50.9 MCV 95.7 H MCH 33.5 H MCHC 35.0 RDW Std Deviation 43.6 RDW Coeff of Sravani 12.4 Plt Count 209 MPV 11.3 Immature Gran % (Auto) 0.400 Neut % (Auto) 67.3 Lymph % (Auto) 24.5 Assumption % (Auto) 6.0 Eos % (Auto) 1.0 Baso % (Auto) 0.8 Absolute Neuts (auto) 5.2 Absolute Lymphs (auto) 1.89 Nucleated RBC % 0 Sodium 142 Potassium 4.2 Chloride 108 Carbon Dioxide 22.7 Anion Gap 12 BUN 11 Creatinine 0.96 Estim Creat Clear Calc 97.17 Est GFR (MDRD) Non-Af 100 BUN/Creatinine Ratio 11.1 Glucose 85 Calcium 9.4 Total Bilirubin 0.60 AST 25 ALT 32 Alkaline Phosphatase 66 Troponin T High Sens < 6 Troponin T Hi Sens 2 Hr < 6 Total Protein 7.5 Albumin 4.7 Globulin 2.9 Albumin/Globulin Ratio 1.6 Radiography Diagnostic Testing: Clinical Impression(s) from Imaging Studies Chest/Abdomen/Pelvis CTA 10/15/24 12:36 IMPRESSION: NO ACUTE TRAUMATIC FINDINGS AT THE CHEST, ABDOMEN OR PELVIS. Reading Location: [facility] EKG Initial EKG: Attestation: I personally reviewed and interpreted this EKG as follows: Interpretation: Sinus Rhythm and No Acute Injury Pattern Comments: Normal sinus rhythm at 72 bpm Normal intervals, no acute ischemic changes <Dr. Kenny Wells, DO - Last Filed: 10/15/24 15:14> [facility] MDM Narrative Medical decision making narrative: External records reviewed: 01/03/2022 colonoscopy Lower GI bleeding likely from 3 sources being polycythemia associated hemorrhagic colitis, diverticular and hemorrhoidal. 01/06/2022 EGD Bleeding Crystal-Thorpe tear was treated with heater probe. Small bilateral hernia. I have personally performed a face to face assessment of the patient and have reviewed the [facility] Note. I performed a substantive portion of the visit including all aspects of the following. My romero findings include: History is [patient presents with chest pain that started last evening that he describes as sharp in the left side of his chest. Patient also developed vomiting and he vomited multiple times last night and 3-4 times today. Denies any blood in his emesis. Patient's had some intermittent blood in his stool for months and apparently has had scope for this. Patient has been moving this weekend and has been doing some lifting. Describes some abdominal discomfort in the left upper quadrant. Said no fever. No diarrhea. No prior abdominal surgeries. He has no heart history.] Exam is [HEENT-PERRLA, EOMI. Cranial nerves II through XII grossly intact. TMs clear. Mucous membranes moist. No adenopathy. Cardiovascular-regular rate and rhythm without murmur or ectopy. Patient has tenderness palpation over the left anterior chest wall that somewhat seems to reproduce his pain. Lungs-clear to auscultation, chest wall stable without crepitus or subcu emphysema Abdomen-normoactive bowel sounds, soft. Patient has tenderness palpation over the left upper quadrant with some guarding. There is no rebound, rigidity, or peritoneal signs. No mass palpated Extremities-intact ?4, normal range of motion, normal pulses, atraumatic] Medical Decison Making [patient presents with vomiting and left-sided chest pain. Pain somewhat reproducible. It is sharp and atypical. No real significant risk factors for PE. IV line established. He was medicated morphine and Zofran. CBC with differential obtained showed white count 7.7 with hemoglobin of 17.8 and platelet count of 209. Chemistries unremarkable. Troponin was less than 6. Delta troponin was also less than 6. We performed CTA of chest abdomen pelvis that was unremarkable. At this point will discharge to home. Etiology of his chest discomfort I suspect may be musculoskeletal. Unclear why he is vomiting although it is possible he may be coming down with a viral enteritis. Patient's rectal bleeding is chronic and has had recent scope. He is stable and do not feel he requires admission. Will send home with prescription for Zofran.] Other additions or changes: [None] Lab Data Labs: Laboratory Results - last 24 hr 10/15/24 10/15/24 12:40 14:21 WBC 7.7 RBC 5.32 Hgb 17.8 H Hct 50.9 MCV 95.7 H MCH 33.5 H MCHC 35.0 RDW Std Deviation 43.6 RDW Coeff of Sravani 12.4 Plt Count 209 MPV 11.3 Immature Gran % (Auto) 0.400 Neut % (Auto) 67.3 Lymph % (Auto) 24.5 Assumption % (Auto) 6.0 Eos % (Auto) 1.0 Baso % (Auto) 0.8 Absolute Neuts (auto) 5.2 Absolute Lymphs (auto) 1.89 Nucleated RBC % 0 Sodium 142 Potassium 4.2 Chloride 108 Carbon Dioxide 22.7 Anion Gap 12 BUN 11 Creatinine 0.96 Estim Creat Clear Calc 97.17 Est GFR (MDRD) Non-Af 100 BUN/Creatinine Ratio 11.1 Glucose 85 Calcium 9.4 Total Bilirubin 0.60 AST 25 ALT 32 Alkaline Phosphatase 66 Troponin T High Sens < 6 Troponin T Hi Sens 2 Hr < 6 Total Protein 7.5 Albumin 4.7 Globulin 2.9 Albumin/Globulin Ratio 1.6 Radiography Diagnostic Testing: Clinical Impression(s) from Imaging Studies Chest/Abdomen/Pelvis CTA 10/15/24 12:36 IMPRESSION: NO ACUTE TRAUMATIC FINDINGS AT THE CHEST, ABDOMEN OR PELVIS. Reading Location: [id number] Discharge Plan Triage Chief Complaint: Chest Pain ED Midlevel Provider: Fallon Kinney ED Provider: Kenny Wells Dx/Rx/DC Orders Clinical Impression: Chest pain, Nausea and vomiting, Rectal bleeding Instructions: ED Chest Pain, Noncardiac, ED Lower GI Bleeding (Stable) Prescriptions: New ondansetron HCl 4 mg tablet 4 mg PO Q6H PRN (Reason: nausea and vomiting) Qty: 12 0RF No Action NK Stand Alone Forms: Work / School Excuse Primary Care Provider: Care Physician,No [facility] Lucas Barfield DO [Med Staff - Active Staff] - Care Physician,No Primary [Primary Care Provider] - Activity Restrictions/Additional Instructions: The testing of your heart is normal. Your chest pain could be musculoskeletal since you have been moving furniture and I recommend ice and Tylenol as needed. Follow-up with a primary care doctor and Dr. Barfield and JANUSZ for evaluation of your rectal bleeding. Your scopes a few years ago had bleeding from the upper and lower GI tract so this needs reevaluated. Return to ER if symptoms worsen. Print Language: Swedish Disposition Disposition: Home, Self Care Discharge Date/Time: 10/15/24 15:23
--- NOTE | 2024-10-15 12:36 | CT_ITS ---
PROCEDURE: CTA CHST, ABD, PEL W AND/OR WO 10/15/2024 REASON FOR EXAM: CHEST AND ABDOMEN PAIN TECHNIQUE: CTA CHST, ABD, PEL W AND/OR WO coronal and Sagittal reconstruction series were provided, including MIP imaging One or more dose reduction techniques were used (e.g., Automated exposure control, adjustment of the mA and/or kV according to patient size, use of iterative reconstruction technique. CONTRAST: Isovue 370 VOLUME: 100 mL RADIATION DOSE SUMMARY: DLP: 1200 mGycm COMPARISON: CT abdomen pelvis 05/02/2024. FINDINGS: Visualization of the visceral organs is limited by coronal and sagittal MIP reconstruction. CHEST: Hardware: None. Mediastinum: No traumatic thoracic aortic injury or mediastinal hematoma. Heart: The heart is normal in size without pericardial effusion. The great vessels are normal in caliber. No significant coronary artery or thoracic aortic calcifications. Lungs and Airways: The central airways are grossly patent. No suspicious pulmonary mass, pleural effusion or pneumothorax. Bones: Grossly unremarkable. ABDOMEN AND PELVIS: Liver: The liver is normal in size without large suspicious mass. No biliary ductal dilation. Gallbladder: Grossly unremarkable. Spleen: Normal in size. Pancreas: Grossly unremarkable. Adrenals: No adrenal mass. Kidneys: Grossly unremarkable. Bladder: Decompressed. Reproductive Organs: Grossly unremarkable. Bowel: The bowel loops are nondilated. No ascites or free air. Prior appendectomy. Vasculature: The abdominal aorta is normal in caliber without ectasia or dissection. The origins of the celiac, SMA and SIERRA are widely patent. The bilateral renal arteries are widely patent. Bones: No obvious aggressive lesions. Mild lumbar spondylosis. CT/CTA Chst, Abd, Pel W and/or WO IMPRESSION: NO ACUTE TRAUMATIC FINDINGS AT THE CHEST, ABDOMEN OR PELVIS. Reading Location: [id number]
--- NOTE | 2024-10-15 12:50 | CM.ED ---
Social Work Date of referral: 10/15/24 Reason for referral: No Primary Care Physician (PCP) Referred by: Social Work Identification Patient provided consent to Social Work visit. Alteration Inspector asked patient if he is established with a PCP which patient stated he is not. Alteration Inspector provided patient with a handout for the [facility] which patient accepted and expressed appreciation for. Divya Hassan, VERIFICATION REP, RIG BUILDER HELPER
[2024-10-15 12:51] LABS: Hematocrit 50.9 % (40-54); Hemoglobin 17.8 g/dL (13.0-16.5); Immature Granulocytes Count 0.030 X10^3/uL (0.0-0.0); Mean Corp Hgb Conc 35.0 g/dL (32-36); Mean Corpuscular Volume 95.7 fL (80-94); Mean Platelet Vol. 11.3 fl (6.2-12.0); NRBC Flagged by Analyzer 0 % (0-5); Platelet Count 209 K/mm3 (150-450); RBC Distribution Width CV 12.4 % (11.6-14.6); RBC Distribution Width SD 43.6 fl (35.1-43.9); Red Blood Count 5.32 M/mm3 (4.6-6.2); White Blood Count 7.7 K/mm3 (4.4-11.0)
--- OUTSIDE RECORDS SUMMARY | 2024-10-15 13:09 | XMS RPT_ITS | CCD ---
Author Organization [facility] Care Team Providers Care Sailor Name Role Phone Dr. Ena Holloway Primary Care Provider Dr. Divya Nobles Emergency Provider [phone] Mandeep Siegel Admit Provider Dr. Mandeep Siegel Other Provider Dr. Lucas Barfield Other Provider [phone] Dr. Kyle Ly Other Provider Carl UNIT MANAGER RN, UNIT MANAGER RN-C Zabrina Attending Provider Dr. Lucas Barfield Attending Provider [phone] Dr. Kyle Ly Attending Provider Dr. Kyle Ly Attending Provider Dr. Ngoc Hansen Referring Provider Unavailable Dr. Mandeep Siegel Attending Provider [phone] Dr. Ngoc Hansen Other Provider Unavailable Dr. Ngoc Hansen Attending Provider Unavailable Dr. Ena Holloway Primary Care Provider Dr. Yoshi Catalan Attending Provider [phone] Mandeep Siegel Referring Provider [phone] Dr. Divya Nobles Emergency Provider [phone] Mandeep Siegel Admit Provider Dr. Mandeep Siegel Other Provider Dr. Lucas Barfield Other Provider Dr. Kyle Ly Attending Provider Dr. Kyle Ly Other Provider [phone] Friend, Dr. Zavala Attending Provider Dr. Ngoc Hansen Referring Provider Unavailable Dr. Mandeep Siegel Attending Provider Dr. Ngoc Hansen Other Provider Unavailable Dr. Ngoc Hansen Attending Provider Unavailable Ngoc Holloway DO Primary Care Provider UnavailNGOC Johnston Primary Care Unavailable NGOC VILLALOBOS Attending Unavailable Rhett Tyler Attending Unavailable Care Physician, No Primary Primary Care Unava ilable Ena Holloway Primary Care Unavailable Rhett Tyler Attending Unavailable Medications Current Medications Medication Drug Class(es) Dates Sig (Normalized) Sig (Original) acetaminophen 325 mg / HYDROcodone bitartrate 5 mg oral tablet (20 sources) Opioid Agonist Start: 11-15-2021 take 1 tablet by mouth every six hours Hydrocodone-Aceta minophen Active 1 TABLET PO EVERY 6 HOURS 10 3 November 15, 2021 Start: 04-22-2020 End: 04-25-2020 take 1 tablet by mouth every six hours as needed Hydrocodone-Acetaminophen Discontinued 1 TABLET PO EVERY 6 HOURS NEEDED 10 3 April 22, 2020 April 25, 2020 1:03am Start: 12-29-2018 End: 01-03-2019 take 1 tablet by mouth every four hours as needed Hydrocodone-Acetaminophen Discontinued 1 TABLET PO EVERY 4 HOURS NEEDED 10 2 December 29, 2018 January 03, 2019 12:09am Start: 02-05-2018 End: 02-08-2018 take 1 tablet by mouth every four hours as needed Hydrocodone-Acetaminophen Discontinued 1 TABLET PO EVERY 4 HOURS NEEDED 15 3 February 05, 2018 12:00am February 08, 2018 1:08am [id number] 200 actuat albuterol 0.09 mg/actuat metered dose inhaler (1 source) beta2-Adrenergic Agonist take 1 puff(s) by inhalation every six hours as needed Albuterol 108 (90 Base) MCG/ACT Aero Soln inhaler Inhale 1 puff every 6 hours as needed for Shortness of Breath. Active azithromycin 500 mg oral tablet (2 sources) Macrolide Antimicrobial Start: 08-28-19 End: 08-28-19 take 1 dose by mouth once 500 mg, Oral, ONCE, 1 dose, On Thu08/28/23 at 1815 Start: 08-28-2023 End: 09-02-2023 take 1 tablet by mouth once daily azithromycin 500 MG tablet Take 1 tablet by mouth daily for 5 days. 5 tablet 08/28/2023 09/02/2023 Active brompheniramine maleate 0.4 mg/ml / dextromethorphan hydrobromide 2 mg/ml / pseudoephedrine hydrochloride 6 mg/ml oral solution (1 source) alpha-Adrenergic Agonist, Uncompetitive O-szmxxv-T-aspartate Receptor Antagonist, Sigma-1 Agonist Start: 08-28-2023 take 5 mL by mouth every six hours as needed uypqykvdrvgnalf-fyrhlnjonvpycog-vavydeuh thorphan 30-2-10 MG/5ML Syrup Take 5 mL by mouth every 6 hours as needed for Cold Symptoms, Cough, Congestion or Rhinitis. 118 mL 08/28/2023 Active cyclobenzaprine hydrochloride 10 mg oral tablet (1 source) Muscle Relaxant Start: 11-15-2021 take 10 mg by mouth twice daily Cyclobenzaprine Active 10 MG PO TWICE A DAY November 15, 2021 12:00am fluticasone propionate 0.05 mg/actuat metered dose nasal spray (1 source) Corticosteroid Start: 08-28-2023 fluticasone 50 MCG/ACT Suspe nsion nasal spray 2 sprays per nostril BID for 7 days. 16 g 08/28/2023 Active hydroCHLOROthiazi de 25 mg / lisinopril 20 mg oral tablet (9 sources) Thiazide Diuretic, Angiotensin Converting Enzyme Inhibitor Start: 12-02-2021 take 1 tablet by mouth once daily Lisinopril-Hydrochlorothiazide Active 1 TABLET PO DAILY December 02, 2021 12:00am hydrocortisone 25 mg/ml topical cream (5 sources) Corticosteroid Start: 01-07-2022 Hydrocortisone (Anusol-Hc) 2 .5 % cream with perineal applicator Active 1 APPLIC RC AT BEDTIME January 07, 2022 12:00am ibuprofen 600 mg oral tablet (1 source) Nonsteroidal Anti-inflammatory Drug Start: 12-02-2021 take 600 mg by mouth every eight hours as needed Ibuprofen Active 600 MG PO EVERY 8 HOURS NEEDED December 02, 2021 12:00am levoFLOXacin 750 mg oral tablet (2 sources) Quinolone Antimicrobial Start: 04-16-2023 take 750 mg by mouth once daily Levofloxacin Active 750 MG PO DAILY 4 Ja nuary 2023 1:00am naproxen 500 mg oral tablet (1 source) Nonsteroidal Anti-inflammatory Drug Start: 07-26-2023 take 500 mg by mouth twice daily as needed Naproxen Active 500 MG PO TWICE DAILY NEEDED July 26, 2023 12:00am Frederic (Nk) (1 source) Start: 09-20-2021 Frederic (Nk) Active September 12:00am pantoprazole 40 mg delayed release oral tablet (5 sources) Proton Pump Inhibitor Start: 01-07-2022 take 1 tablet by mouth once daily Pantoprazole (Protonix) 40 mg tablet,del ayed release (DR/EC) Active 40 MG PO DAILY January 07, 2022 12:00am predniSONE 20 mg oral tablet (3 sources) Start: 04-16-2023 take 40 mg by mouth once daily Prednisone Active 40 MG PO DAILY 2023 1:00am Start: 11-15-2021 take 60 mg by mouth once daily Prednisone Active 60 MG PO DAILY November 15, 2021 12:00am Completed/Discontinued Medications Medication Drug Class(es) Dates Sig (Normalized) Sig (Original) dextromethorphan hydrobromide 2 mg/ml / guaiFENesin 20 mg/ml oral suspension (1 source) Uncompetitive K-uzdmtk-Y-aspartat e Receptor Antagonist, Sigma-1 Agonist Start: 08-28-2023 End: 08-28-2023 take 1 dose by mouth once 10 mL, Oral, ONCE, 1 dose, On Thu08/28/23 at 1815 diazePAM 5 mg oral tablet (11 sources) Benzodiazepine Start: 02-05-2018 End: 02-08-2018 take 5 mg by mouth every eight hours Diazepam Discontinued 5 MG PO EVERY 8 HOURS 15 February 05, 2018 12:00am February 08, 2018 1:08am Problems Active Problems Problem Classification Problem Date Documented Da te Episodic/Chronic Abdominal pain (3 sources) Lower abdominal pain; Translations: [Lower abdominal pain, unspecified] 03-11-2022 Episodic Alcohol-related disorders (3 sources) Alcoholism; Translations: [Alcohol dependence, uncomplicated] 03-11-2022 Chronic Asthma (2 sources) Exacerbation of asthma; Translations: [Unspecified asthma with (acute) exacerbation] 04-16-2023 Chronic Cardiac dysrhythmias (3 sources) Sinus tachycardia; Translations: [Tachycardia, unspecified] 03-11-2022 Episodic Chronic obstructive pulmonary disease and bronchiectasis (3 sources) Bronchitis; Translations: [Bronchitis, not specified as acute or chronic] Onset: 4 08-28-2023 Episodic Disorders of teeth and jaw (11 sources) Toothache; Translations: [Other specified disorders of teeth and supporting structures] 02-11-2014 Episodic Essential hypertension (8 sources) Hypertensive disorder; Translations: [Essential (primary) hypertension] Chronic Fluid and electrolyte disorders (18 sources) Dehydration; Translations: [Dehydration] Episodic Gastrointestinal hemorrhage (19 sources) Gastrointestinal hemorrhage; Translations: [Gastrointestinal hemorrhage, unspecified] Onset: Episodic Headache; including migraine (11 sources) Headache; Translations: [Headache] 02-24-2018 Episodic Hemorrhoids (3 sources) Bleeding internal hemorrhoids; Translations: [Other hemorrhoids] 03-11-2022 Episodic Influenza (2 sources) Influenza due to Influenza A virus; Translations: [Influenza due to other identified influenza virus with other respiratory manifestations] 04-10-2023 Episodic Neoplasms of unspecified nature or uncertain behavior (3 sources) Polycythemia vera (clinical); Translations: [Polycythemia vera] 03-11-2022 Chronic Nonspecific chest pain (20 sources) Atypical chest pain; Translations: [Other chest pain] 12-10-2021 Episodic Open wounds of extremities (4 sources) Laceration of left thumb; Translations: [Laceration without foreign body of left thumb without damage to nail, initial encounter] 03-08-2022 Episodic Other bone disease and musculoskeletal deformities (11 sources) Costal chondritis; Translations: [Chondrocostal junction syndrome [Tietze]] 07-01-2018 Episodic Other connective tissue disease (11 sources) Spasm of cervical paraspinous muscle; Translations: [Other muscle spasm] 12-30-2018 Episodic Other upper respiratory infections (14 sources) Acute upper respiratory infection; Translations: [Acute upper respiratory infection, unspecified] Onset: 4 07-01-2018 Episodic Pancreatic disorders (not diabetes) (7 sources) Pancreatitis; Translations: [Acute pancreatitis without necrosis or infection, unspecified] Episodic Pneumonia (except that caused by tuberculosis or sexually transmitted disease) (2 sources) Pneumonia; Translations: [Pneumonia, unspecified organism] 04-16-2023 Episodic Spondylosis; intervertebral disc disorders; other back problems (10 sources) Cervical radiculopathy; Translations: [Radiculopathy, cervical region] 11-23-2021 Episodic Sprains and strains (20 sources) Sprain of ankle; Translations: [Sprain of unspecified ligament of right ankle, initial encounter] 10-04-2019 Episodic Viral infection (11 sources) Viral disease; Translations: [Viral infection, unspecified] 02-24-2018 Episodic Past or Other Problems Problem Classification Problem Date Documented Da te Episodic/Chronic Other non-traumatic joint disorders (2 sources) Pain in left shoulder; Translations: [Acute pain of left shoulder] Onset: 07-30-2023 07-26-2023 Episodic Results Test Name Value Interpretation Reference Range Facility Abdomen/Pelvis W IV Cont ONL Yon 05-02-2024 Abdomen/Pelvis W IV Cont ONLY [facility] Imaging Services [address] [place] [id number] Abdomen/Pelvis W IV Cont ONLY MR#: [id number] Acct: [id number] Name: ADALID MCLEAN Rep #: [id number] : 1980 M 44 From: Jamee Bell PCP: Care Physician,No Primary Status: REG ER Study: Abdomen/Pelvis W IV Cont ONLY Date of Exam: Exam# [id number] Ordering [place]: [place] [id number] EXAM: CT Abdomen And Pelvis W/ Contrast Injection HISTORY: Abdominal pain rectal bleeding for months, right sided lower abd pain increasing x 2 days, hx appy and htn TECHNIQUE: Routine protocol CT abdomen pelvis. IV Contrast: IV 100mL Isovue-370 . Oral Contrast: without. Sagittal and coronal images were reconstructed. RADIATION DOSAGE (If Supplied By Facility): CTDIvol = ( 14.39 ) mGy, DLP = ( 1052.80 ) mGycm Individualized dose optimization techniques were used for this CT. COMPARISON: CT abdomen pelvis 01/06/2022. LIMITATIONS: None. FINDINGS: LOWER CHEST: Lung bases are clear. LIVER: Fatty infiltration. Low-attenuation lesion in the left lobe approximately 3.5 cm, smaller adjacent lesion, with peripheral nodular enhancement consistent with hemangiomas, and not significantly changed compared to the prior. GALLBLADDER/BILE DUCTS: Unremarkable. PANCREAS: Unremarkable. SPLEEN: Unremarkable. ADRENAL GLANDS: Unremarkable. KIDNEYS / URETERS: Unremarkable. BOWEL / MESENTERY: Scattered diverticula throughout the colon. No bowel obstruction. APPENDIX: Not identified. PERITONEUM: No free air. No free fluid. VESSELS: Abdominal aorta is normal caliber. RETROPERITONEUM: Unremarkable. REPRODUCTIVE ORGANS: Unremarkable. BLADDER: Unremarkable. ABDOMINAL WALL: Unremarkable. BONES: No acute abnormality. OTHER: None. CT/Abdomen/Pelvis W IV Cont ONLY IMPRESSION: No acute findings. Colonic diverticulosis without evidence of acute diverticulitis. Electronically Signed: Jamee Taylor MD at 4:14 EST [place] Location ID and State: [facility] [place] / [place] Tel , Service support , CC: Dr. Rhett Tyler, DO; No Primary Care Physician Bioinformatician: Signed Normal [facility] CBC W/Diff, Automatedon 04-07 Absolute Lymph 4.97 X10 3/uL High 0.83-4.51 [facility] Comment on above: Performed By: #### M 100.7900, L100.0100, L501.2450, L500.4050 #### [facility] [address] [place], [place], [id number] Absolute Neut 3.9 X10 3/uL Normal 2.0-7.7 [facility] Comment on above: Performed By: #### M 100.7900, L100.0100, L501.2450, L500.4050 #### [facility] [address] [place], [address] Basophils/100 WBC (Bld) 0.7 % Normal 0-1 [facility] Comment on above: Performed By: #### M 100.7900, L100.0100, L501.2450, L500.4050 #### [facility] [address] [place], [address] Eosinophils/100 WBC (Bld) 1.3 % Normal 0-5 [facility] Comment on above: Performed By: #### M 100.7900, L100.0100, L501.2450, L500.4050 #### [facility] [address] [place], [address] Erythrocyte distribution width (RBC) [Ratio] 12.0 % Normal 11.6-14.6 [facility] Comment on above: Performed By: #### M 100.7900, L100.0100, L501.2450, L500.4050 #### [facility] [address] [place], [address] Hematocrit (Bld) [Volume fraction] 49.2 % Normal 40-54 [facility] Comment on above: Performed By: #### M 100.7900, L100.0100, L501.2450, L500.4050 #### [facility] [address] [place], [address] Hemoglobin (Bld) [Mass/Vol] 17.9 g/dL High 13.0-16.5 [facility] Comment on above: Performed By: #### M 100.7900, L100.0100, L501.2450, L500.4050 #### [facility] [address] [place], [address] IG% 0.300 Normal 0.0-0.9 [facility] Comment on above: Result Comment: IG% - Immature Granulocytes (promyelocytes, myelocytes and metamyelocytes) > 1% indicates that a LEFT SHIFT is Present. Performed By: #### M 100.7900, L100.0100, L501.2450, L500.4050 #### [facility] [address] [place], [address] Lymphocytes/100 WBC (Bld) 51.0 % High 19-41 [facility] Comment on above: Performed By: #### M 100.7900, L100.0100, L501.2450, L500.4050 #### [facility] [address] [place], [address] MCH (RBC) [Entitic mass] 33.4 pg High 27.0-32.0 [facility] Comment on above: Performed By: #### M 100.7900, L100.0100, L501.2450, L500.4050 #### [facility] [address] [place], [address] MCHC (RBC) [Mass/Vol] 36.4 g/dL High 32-36 [facility] Comment on above: Performed By: #### M 100.7900, L100.0100, L501.2450, L500.4050 #### [facility] [address] [place], [address] MCV (RBC) [Entitic vol] 91.8 fL Normal 80-94 [facility] Comment on above: Performed By: #### M 100.7900, L100.0100, L501.2450, L500.4050 #### [facility] [address] [place], [address] Monocytes/100 WBC (Bld) 6.4 % Normal 0-10 [facility] Comment on above: Performed By: #### M 100.7900, L100.0100, L501.2450, L500.4050 #### [facility] [address] [place], [address] Neutrophils/100 WBC (Bld) 40.3 % Low 47-70 [facility] Comment on above: Performed By: #### M 100.7900, L100.0100, L501.2450, L500.4050 #### [facility] [address] [place], [address] Nucleated RBC (Bld) [#/Vol] 0 10*3/uL Normal 0-5 [facility] Comment on above: Performed By: #### M 100.7900, L100.0100, L501.2450, L500.4050 #### [facility] [address] [place], [address] Platelet mean volume (Bld) [Entitic vol] 11.6 fL Normal 6.2-12.0 [facility] Comment on above: Performed By: #### M 100.7900, L100.0100, L501.2450, L500.4050 #### [facility] [address] [place], [address] Platelets (Bld) [#/Vol] 221 10*3/uL Normal 150-450 [facility] Comment on above: Performed By: #### M 100.7900, L100.0100, L501.2450, L500.4050 #### [facility] [address] [place], [address] RBC (Bld) [#/Vol] 5.36 10*6/uL Normal 4.6-6.2 [facility] Comment on above: Performed By: #### M 100.7900, L100.0100, L501.2450, L500.4050 #### [facility] [address] [place], [address] RDW SD 40.3 fl Normal 35.1-43.9 [facility] Comment on above: Performed By: #### M 100.7900, L100.0100, L501.2450, L500.4050 #### [facility] [address] [place], [address] WBC (Bld) [#/Vol] 9.8 10*3/uL Normal 4.4-11.0 [facility] Comment on above: Performed By: #### M 100.7900, L100.0100, L501.2450, L500.4050 #### [facility] [address] [place], [address] Comprehensive Metabolic Prof [facility] 05-02-2024 Albumin [Mass/Vol] 4.4 g/dL Normal 3.2-5.0 [facility] Comment on above: Performed By: #### M 100.7900, L100.0100, L501.2450, L500.4050 #### [facility] [address] [place], [address] Albumin/Globulin [Mass ratio] 1.3 {ratio} Normal 0.9-2.4 [facility] Comment on above: Performed By: #### M 100.7900, L100.0100, L501.2450, L500.4050 #### [facility] [address] [place], [address] ALK P 56 U/L Normal 45-117 [facility] Comment on above: Performed By: #### M 100.7900, L100.0100, L501.2450, L500.4050 #### [facility] [address] [place], [address] ALT [Catalytic activity/Vol] 56 U/L Normal 16-61 [facility] Comment on above: Performed By: #### M 100.7900, L100.0100, L501.2450, L500.4050 #### [facility] [address] [place], [address] AST [Catalytic activity/Vol] 25 U/L Normal 15-37 [facility] Comment on above: Performed By: #### M 100.7900, L100.0100, L501.2450, L500.4050 #### [facility] [address] [place], [address] Bilirubin [Mass/Vol] 0.60 mg/dL Normal 0.20-1.00 [facility] Comment on above: Result Comment: For patients on eltrombopag therapy, use of Dimension [place] TBIL is not recommended. Performed By: #### M 100.7900, L100.0100, L501.2450, L500.4050 #### [facility] [address] [place], [address] BUN/CRE 9.5 RATIO Low 10-20 [facility] Comment on above: Performed By: #### M 100.7900, L100.0100, L501.2450, L500.4050 #### [facility] [address] [place], [address] CA,Total 9.2 mg/dL Normal 8.5-10.1 [facility] Comment on above: Performed By: #### M 100.7900, L100.0100, L501.2450, L500.4050 #### [facility] [address] [place], [address] Chloride [Moles/Vol] 112 mmol/L High 98-107 [facility] Comment on above: Performed By: #### M 100.7900, L100.0100, L501.2450, L500.4050 #### [facility] [address] [place], [address] CO2 [Moles/Vol] 24.0 mmol/L Normal 21.0-32.0 [facility] Comment on above: Performed By: #### M 100.7900, L100.0100, L501.2450, L500.4050 #### [facility] [address] [place], [address] Creatinine [Mass/Vol] 0.95 mg/dL Normal 0.70-1.30 [facility] Comment on above: Result Comment: The validity of the calculated GFR GFRAA in patients over 70 years has not been determined. Clinical correlation is essential. Performed By: #### M 100.7900, L100.0100, L501.2450, L500.4050 #### [facility] [address] [place], [address] ECRCL 107.03 ml/min Normal [facility] Comment on above: Performed By: #### M 100.7900, L100.0100, L501.2450, L500.4050 #### [facility] [address] [place], [address] EST GFR - AA 110 mL/min Normal >60 [facility] Comment on above: Result Comment: Afri can Colombian GFR Calc Performed By: #### M 100.7900, L100.0100, L501.2450, L500.4050 #### [facility] [address] [place], [address] GAP 7 Normal 5-15 [facility] Comment on above: Performed By: #### M 100.7900, L100.0100, L501.2450, L500.4050 #### [facility] [address] [place], [address] GFR/1.73 sq M.predicted among non-blacks MDRD (S/P/Bld) [Vol rate/Area] 91 mL/min/{1.73_m2} Normal >60 [facility] Comment on above: Result Comment: Non- GFR Calc Performed By: #### M 100.7900, L100.0100, L501.2450, L500.4050 #### [facility] [address] [place], [address] Globulin (S) [Mass/Vol] 3.5 g/dL Normal 2.2-4.2 [facility] Comment on above: Performed By: #### M 100.7900, L100.0100, L501.2450, L500.4050 #### [facility] [address] [place], [address] Glucose [Mass/Vol] 80 mg/dL Normal 74-106 [facility] Comment on above: Performed By: #### M 100.7900, L100.0100, L501.2450, L500.4050 #### [facility] [address] [place], [address] Potassium [Moles/Vol] 3.9 mmol/L Normal 3.5-5.1 [facility] Comment on above: Performed By: #### M 100.7900, L100.0100, L501.2450, L500.4050 #### [facility] [address] [place], [address] Sodium [Moles/Vol] 143 mmol/L Normal 136-145 [facility] Comment on above: Performed By: #### M 100.7900, L100.0100, L501.2450, L500.4050 #### [facility] [address] [place], [address] T PROT 7.9 g/dL Normal 6.4-8.2 [facility] Comment on above: Performed By: #### M 100.7900, L100.0100, L501.2450, L500.4050 #### [facility] [address] [place], [address] Urea nitrogen [Mass/Vol] 9 mg/dL Normal 7-18 [facility] Comment on above: Performed By: #### M 100.7900, L100.0100, L501.2450, L500.4050 #### [facility] [address] [place], [address] Emergency Department Summary on 05-02-2024 Emergency Department Summary [facility] Medical Records Department [address] [place] [address] Emergency Department Summary 05/02/24 MR#: [id number] Acct: [id number] Name: ADALID MCLEAN Jr. Rep #: [id number] : 1980 44 From: Rhett Tyler DO PCP: Care Physician,No Primary Status:DEP ER Location: ED HPI HPI - GI History of Present Illness Chief Complaint: GI Bleed Informant: patient Abdominal Pain/Flank Pain Onset: Days (2) Context: Gradual Onset Timing: Continuous Quality: Sharp Location: RUQ and RLQ Worsened by: - (Standing) Relieved by: Nothing Nausea/Vomiting/Emesis GI Symptom: Positive for Nausea; Negative for Vomiting Diarrhea/Melena/Hematoc hezia GI Symptom: Positive for Melena Onset: Days (2) Stool Quality: Positive for Black Associated Symptoms Associated Symptoms: Positive for Hematuria; Negative for Dysuria or Frequency Narrative Narrative: Patient presents with rectal bleeding that has been getting worse over the past 2 days. Patient states he has had dark stools for the past 2 days. Patient admits to some nausea but denies any vomiting. Patient admits to some right-sided abdominal pain. Patient describes it as sharp. Patient states his symptoms are worse with standing. Patient denies any fevers or chills. Patient denies any hematemesis or coffee-ground emesis. Patient admits to some hematuria but denies any dysuria or frequency. [facility] Medical History Migraines Asthma Internal hemorrhage Hypertension Home Medications ???Medication ???Instructions ???Recorded ???Last Taken ???Type hydrocortisone 2.5 % topical cream 1 applic AL QHS #30 grams 01/07/22 Unknown Rx with perineal applicator (Anusol-HC) naproxen 500 mg tablet 500 mg PO BID PRN #20 tabs 07/26/23 Unknown Rx Allergy/AdvReac Type Severity Reaction Status Date / Time No Known Allergies Allergy Verified 05/02/24 01: Family History Other Liver cancer Ovarian cancer Surgical History History of appendectomy Social History household members: spouse Smoking Status: Light Smoker (<10/day) substance use type: does not use ROS ROS ED Constitutional Constitutional ED: Reports chills; Denies fever(s) Eyes Eyes: Denies blurry vision or change in vision ENT ENT ED: Denies rhinorrhea or sore throat Cardiovascular Cardiovascular: Denies chest pain or palpitations Respiratory/Chest Respiratory/Chest: Denies cough or dyspnea Gastrointestinal Gastrointestinal: Reports abdominal pain, melena and nausea; Denies vomiting Genitourinary Genitourinary ED: Reports hematuria; Denies dysuria Musculoskeletal Musculoskeletal: Denies back pain or neck pain Integumentary Denies abscess or rash Neurologic Neurologic: Denies headache(s) or weakness Allergic/Immunologic Allergic/Immunologic ED: Denies mouth swelling or urticaria EXAM Physical Exam Const Vital Signs: 05/02/24 01:24 05/02/24 02:26 05/02/24 02:40 Temperature 97.8 F Temperature Source Oral Pulse Rate 89 78 Pulse Rate [Lying] 85 Pulse Rate [Sitting (for 1 minute prior to obtaining)] 80 Pulse Rate [Standing (for 1 minute prior to obtaining)] 66 Respiratory Rate 16 14 Blood Pressure 173/98 H 133/67 H Blood Pressure [Lying] 141/96 H Blood Pressure [Sitting (for 1 minute prior to obtaining)] 140/87 H Blood Pressure [Standing (for 1 minute prior to obtaining)] 142/110 H Blood Pressure Mean 123 89 Blood Pressure Mean [Lying] 111 Blood Pressure Mean [Sitting (for 1 minute prior to obtaining)] 104 Blood Pressure Mean [Standing (for 1 minute prior to obtaining)] 120 Pulse Ox 97 99 Oxygen Delivery Method Room Air 05/02/24 03:24 Temperature Temperature Source Pulse Rate 67 Pulse Rate [Lying] Pulse Rate [Sitting (for 1 minute prior to obtaining)] Pulse Rate [Standing (for 1 minute prior to obtaining)] Respiratory Rate 16 Blood Pressure 133/67 H Blood Pressure [Lying] Blood Pressure [Sitting (for 1 minute prior to obtaining)] Blood Pressure [Standing (for 1 minute prior to obtaining)] Blood Pressure Mean 89 Blood Pressure Mean [Lying] Blood Pressure Mean [Sitting (for 1 minute prior to obtaining)] Blood Pressure Mean [Standing (for 1 minute prior to obtaining)] Pulse Ox 98 Oxygen Delivery Method Room Air Positive well nourished and well developed General Appearance ED: well developed and NAD HEENT Reports moist mucous membranes Neck supple and no JVD Resp normal respiratory effort and clear to auscultation bilaterally Cardio regular rate and regular rhy (more content not included)... Normal [facility] Lipaseon 05-02-2024 Lipase [Catalytic activity/Vol] 42 U/L Normal 13-75 [facility] Comment on above: Result Comment: Barbara mason note: LIPASE revised reference range effective 22. New Lipase methodology. Expected to produce lower values than the previous assay method. NEW Reference Range: 13 - 75 U/L Performed By: #### M 100.7900, L100.0100, L501.2450, L500.4050 #### [facility] [address] [place], [address] Partial Thromboplast Timeon 05-02-2024 aPTT Coag (Bld) [Time] 29.0 s Normal 24.1-36.2 [facility] Comment on above: Performed By: #### L 300.3900, L300.4310 #### [facility] [address] [place], [address] Prothrombin Time w/INRon INR Coag (PPP) [Relative time] 0.9 {INR} Normal [facility] Comment on above: Performed By: #### L 300.3900, L300.4310 #### [facility] [address] [place], [address] PT Coag (PPP) [Time] 12.7 s Normal 11.7-14.9 [facility] Comment on above: Performed By: #### L 300.3900, L300.4310 #### [facility] [address] [place], [place], [address] Stool Occult Blood iFOBon STOB Positive Normal [facility] Comment on above: Performed By: #### M 100.7900, L100.0100, L501.2450, L500.4050 #### [facility] [address] [place], [address] Emergency Department Summary on 07-26-2023 Emergency Department Summary [facility] Medical Records Department [address] [place] [address] Emergency Department Summary 07/26/23 MR#: [id number] Acct: [id number] Name: ADALID MCLEAN Jr. Rep #: [id number] : 1980 43 From: Rhett Tyler DO PCP: Dr. Ena Holloway MD Status:DEP ER Location: ED HPI History of Present Illness HPI Narrative: Patient presents with left shoulder pain that has been getting worse over the past 3 days. Patient denies any trauma or injury. Patient describes it as aching and burning. Patient states it began rather suddenly 3 days ago. Patient states it is worse whenever he lays on it. Patient states it is also worse with movement. Patient states nothing seems to help with it. Patient does admit to some tingling into his fingers but denies any weakness. Chief Complaint: Upper Extremity Injury Informant: patient Onset/Context/Timing Onset: Days (3) Context: Gradual Onset Timing: Continuous Quality of Pain: Aching and Burning Location: Left shoulder Worsened by: Laying on left side and movement of left shoulder Relieved by: Nothing Associated Symptoms Associated Symptoms: Positive for Parasthesia; Negative for Weakness or Loss of Funtion PFSH PFS Medical History Asthma Hypertension Internal hemorrhage Home Medications lisinopril 20 mg-hydrochlorothiazide 25 mg tablet 1 tab PO DAILY HTN 12/02/21 [History Last Taken 01/04/22] hydrocortisone 2.5 % topical cream with perineal applicator (Anusol-HC) 1 applic AL QHS #30 grams 01/07/22 [Rx Last Taken Unknown] pantoprazole 40 mg tablet,delayed release (Protonix) 40 mg PO DAILY #90 tabs 01/07/22 [Rx Last Taken Unknown] levofloxacin 750 mg tablet 750 mg PO DAILY #4 tabs 04/16/23 [Rx Last Taken Unknown] prednisone 20 mg tablet 40 mg (2 x 20 mg) PO DAILY #8 tabs 04/16/23 [Rx Last Taken Unknown] naproxen 500 mg tablet 500 mg PO BID PRN #20 tabs 07/26/23 [Rx Last Taken Unknown] Allergy/AdvReac Type Severity Reaction Status Date / Time No Known Allergies Allergy Verified 07/26/23 11:28 Family History Other Liver cancer Ovarian cancer Surgical History History of appendectomy Social History household members: spouse Smoking Status: Current every day smoker tobacco type: cigarettes substance use type: does not use ROS ROS ED Constitutional Constitutional ED: Denies chills or fever(s) Eyes Eyes: Denies blurry vision or change in vision ENT ENT ED: Denies rhinorrhea or sore throat Cardiovascular Cardiovascular: Denies chest pain or palpitations Respiratory/Chest Respiratory/Chest: Denies cough or dyspnea Gastrointestinal Gastrointestinal: Denies nausea or vomiting Genitourinary Genitourinary ED: Denies dysuria or hematuria Musculoskeletal Musculoskeletal: Denies back pain or neck pain Integumentary Denies abscess or rash Neurologic Neurologic: Denies headache(s) or weakness Allergic/Immunologic Allergic/Immunologic ED: Denies mouth swelling or urticaria EXAM Physical Exam Const Vital Signs: 07/26/23 11:27 Temperature 97.2 F L Temperature Source Temporal Pulse Rate 84 Respiratory Rate 16 Blood Pressure 140/96 H Blood Pressure Mean 110 Pulse Ox 100 Oxygen Delivery Method Room Air Positive well nourished and well developed General Appearance ED: well developed and NAD HEENT Reports moist mucous membranes Neck full ROM and supple Extremity Extremity Narrative: There is diffuse tenderness over the left shoulder. There is no edema or ecchymosis. There is no bony crepitance or step-off noted. Range of motion was limited in flexion, extension, and abduction secondary to pain. There is no pain with internal or external rotation. There is no deformity noted. Sensation was intact to light touch in the radial, median, ulnar, and axillary areas. Strength is 5/5 in the radial, median, and ulnar areas. Radial pulses are equal bilaterally. Neuro oriented x3, CN's II-XII intact bilaterally, moves all extremities, no focal motor deficits and no sensory deficits noted Sensorium / Orientation: alert Motor Exam: strength 5/5 throughout Psych mental status grossly normal MDM MDM MDM Narrative Medical decision making narrative: Differential diagnosis includes degenerative arthritis, occult fracture, rotator cuff tear, tendinitis, and contusion. X-rays of the left shoulder will be obtained to assess for degenerative arthritis and occult fracture. Radiography Diagnostic Testing: X-rays of the left shoulder were obtained. There are 4 views. On my independent interpretation, there is no acute fracture or dislocation note (more content not included)... Normal [facility] Shoulder min 2 Viewson 07-25 Shoulder min 2 Views [facility] [address] [place] [address] Shoulder min 2 Views MR#: [id number] Acct: [id number] Name: ADALID MCLEAN Jr. Rep #: [id number] : 1980 M 43 From: Junior Avila MD PCP: Dr. Ena Holloway MD Status: REG ER Study: Shoulder min 2 Views Date of Exam: 07/26/23 Exam# [id number] Ordering [place]: [place] [id number] EXAM: XR LEFT SHOULDER COMPLETE, 2 OR MORE VIEWS CLINICAL INDICATION: Injury/Pain TECHNIQUE: Two or more views of the left shoulder. COMPARISON: No relevant prior studies available. FINDINGS: BONES/JOINTS: Unremarkable. No acute fracture. No subluxation. Normal alignment. Preservation of the joint space. No sclerotic or destructive changes observed. SOFT TISSUES: Unremarkable. No soft tissue swelling or gas. No radiopaque foreign body. RAD/Shoulder min 2 Views IMPRESSION: Negative left shoulder x-rays. Electronically Signed: Junior Avila MD at 12:45 EDT , CC: Dr. Rhett Tyler DO; Dr. Ena Holloway MD Bioinformatician: Signed Normal [facility] Absolute lymphocyte countOrd ered By: Divya Nobles on 04-16-2023 Lymphocytes Auto (Unsp spec) [#/Vol] 1.88 10*3/uL 0.83-4.51 [facility] Basophil percentageOrdered B y: Divya Nobles on 04-16-2023 Basophils/100 WBC (Bld) 0.4 % 0-1 [facility] Chloride [Moles/Vol] 106 mmol/L 98-107 [facility] Eosinophils/100 WBC (Bld) 0.3 % 0-5 [facility] Glucose [Mass/Vol] 107 mg/dL 74-106 [facility] Comment on above: Fasting Glucose resu lt from 100 to 125 mg/dL suggests IMPAIRED HOMEOSTASIS per A.D.A. criteria. Neutrophils (Bld) [#/Vol] 8.2 10*3/uL 2.0-7.7 [facility] Neutrophils/100 WBC (Bld) 75.6 % 47-70 [facility] Potassium [Moles/Vol] 3.3 mmol/L 3.5-5.1 [facility] Sodium [Moles/Vol] 138 mmol/L 136-145 [facility] WBC (Bld) [#/Vol] 10.8 10*3/uL 4.4-11.0 [facility] Blood erythrocytes count (nu mber/volume)Ordered By: Divya Nobles on 04-16-2023 RBC (Bld) [#/Vol] 5.26 10*6/uL 4.6-6.2 [facility] Blood hemoglobin measurement (mass/volume)Ordered By: Divya Nobles on 04-16-2023 Hemoglobin (Bld) [Mass/Vol] 17.2 g/dL 13.0-16.5 [facility] Blood lymphocytes/100 leukoc ytesOrdered By: Divya Nobles on 04-16-2023 Lymphocytes/100 WBC (Bld) 17.4 % 19-41 [facility] Blood monocytes/100 leukocyt esOrdered By: Divya Nobles on 04-16-2023 Monocytes/100 WBC (Bld) 5.9 % 0-10 [facility] Blood platelet mean volumeOr dered By: Divya Nobles on 04-16-2023 Platelet mean volume (Bld) [Entitic vol] 11.3 fL 6.2-12.0 [facility] Determination of erythrocyte mean corpuscular volume (MCV)Ordered By: Divya Nobles on 04-16-2023 MCV (RBC) [Entitic vol] 94.5 fL 80-94 [facility] Hematocrit Auto (Bld) [Volum e fraction]Ordered By: Divya Nobles on 04-16-2023 Hematocrit (Bld) [Volume fraction] 49.7 % 40-54 [facility] - Chemistry and C hemistry - challengeOrdered By: Divya Nobles on 04-16-2023 CO2 [Moles/Vol] 26.0 mmol/L 21.0-32.0 [facility] Urea nitrogen/Creatinine [Mass ratio] 11.9 mg/mg 10-20 [facility] - Hematology and Cell countsOrdered By: Divya Nobles on 04-16-2023 Erythrocyte distribution width (RBC) [Entitic vol] 42.5 fL 35.1-43.9 [facility] Erythrocyte distribution width (RBC) [Ratio] 12.3 % 11.6-14.6 [facility] Immature granulocytes/100 WBC (Bld) 0.400 % 0.0-0.9 [facility] Comment on above: IG% - Immature Granu locytes (promyelocytes, myelocytes and metamyelocytes) > 1% indicates that a LEFT SHIFT is Present. MCH (RBC) [Entitic mass] 32.7 pg 27.0-32.0 [facility] Nucleated RBC/100 WBC (Bld) [Ratio] 0 % 0-5 [facility] MCHC Auto (RBC) [Mass/Vol]Or dered By: Divya Nobles on 04-16-2023 MCHC (RBC) [Mass/Vol] 34.6 g/dL 32-36 [facility] No Panel InformationOrdered By: Divya Nobles on 04-16-2023 D-Dimer Quantitative (PE/DVT) 0.47 FEU/ug/m 0.27-0.49 [facility] Comment on above: NORMAL D-Dimer level (<0.50) indicates no DVT or PE. Estimated Creatinine Clearance Calc 93.33 ml/min [facility] Estimated GFR (MDRD) Amer 103 mL/min >60 [facility] Comment on above: GFR Calc Estimated GFR (MDRD) Non-Af Amer 85 mL/min >60 [facility] Comment on above: Non- GFR Calc Troponin I High Sensitivity 5 pg/mL 3.0-78.0 [facility] Comment on above: Please Note: New Dona t Units and Gender Specific Reference Ranges. For more information see Policy Stat Procedure [place] High Sensitivity Troponin (TNIH) and attachments. Platelets bldOrdered By: Saba Nobles on 04-16-2023 Platelets (Bld) [#/Vol] 189 10*3/uL 150-450 [facility] Serum or plasma calcium zo urement (mass/volume)Ordered By: Divya Nobles on 04-16-2023 Calcium [Mass/Vol] 9.7 mg/dL 8.5-10.1 [facility] Serum or plasma creatinine m easurement (mass/volume)Ordered By: Divya Nobles on 04-16-2023 Creatinine [Mass/Vol] 1.01 mg/dL 0.70-1.30 [facility] Comment on above: The validity of the calculated GFR & GFRAA in patients over 70 years has not been determined. Clinical correlation is essential. Serum or plasma urea nitroge n measurement (mass/volume)Ordered By: Divya Nobles on 04-16-2023 Urea nitrogen [Mass/Vol] 12 mg/dL 7-18 [facility] Thin prep Papanicolaou smear with manual screeningOrdered By: Divya Nobles on 04-16-2023 Thin prep Papanicolaou smear with manual screening 6 5-15 [facility] - Microbiology an d Antimicrobial susceptibilityOrdered By: Christiano Garcia on 04-10-2023 SARS-CoV-2 (COVID-19) RNA WARNER+probe Ql (Unsp spec) Influenzae A [facility] SARS-CoV-2 (COVID-19) RNA WARNER+probe Ql (Unsp spec) Influenzae A [facility] Basophil percentageon 2021 WBC (Bld) [#/Vol] 8.9 10*3/uL 4.4-11.0 [facility] Work Phone: Blood erythrocytes count (nu mber/volume)on 03-03-2022 RBC (Bld) [#/Vol] 5.33 10*6/uL 4.6-6.2 [facility] Work Phone: Blood hemoglobin measurement (mass/volume)on 03-03-2022 Hemoglobin (Bld) [Mass/Vol] 18.4 g/dL 13.0-16.5 [facility] Work Phone: Comment on above: CRITICAL VALUE VERIF IED. CALLED TO [id number] Lindsay Sood.RESULTS READ BACK BY SAME . Blood platelet mean volumeon 03-03-2022 Platelet mean volume (Bld) [Entitic vol] 11.6 fL 6.2-12.0 [facility] Work Phone: Determination of erythrocyte mean corpuscular volume (MCV)on 03-03-2022 MCV (RBC) [Entitic vol] 97.2 fL 80-94 [facility] Work Phone: Hematocrit Auto (Bld) [Volum e fraction]on 03-03-2022 Hematocrit (Bld) [Volume fraction] 51.8 % 40-54 [facility] Work Phone: INR in Blood by Coagulation assayon 03-03-2022 INR Coag (Bld) [Relative time] 1.0 {INR} [facility] Work Phone: Laboratory - Coagulationon 1 05-03-2021 PT Coag (PPP) [Time] 12.6 s 11.7-14.9 [facility] Work Phone: Laboratory - Hematology and Cell countson 03-03-2022 Erythrocyte distribution width (RBC) [Entitic vol] 44.8 fL 35.1-43.9 [facility] Work Phone: Erythrocyte distribution width (RBC) [Ratio] 12.5 % 11.6-14.6 [facility] Work Phone: MCH (RBC) [Entitic mass] 34.5 pg 27.0-32.0 [facility] Work Phone: MCHC Auto (RBC) [Mass/Vol]on 03-03-2022 MCHC (RBC) [Mass/Vol] 35.5 g/dL 32-36 [facility]: Platelets bldon 03-03-2022 Platelets (Bld) [#/Vol] 262 10*3/uL 150-450 [facility] Work Phone: Review by pathologiston 02-05 Pathologist review Steve (Unsp spec) [Interp] August [facility] Work Phone: Absolute lymphocyte counton 01-07-2022 Lymphocytes Auto (Unsp spec) [#/Vol] 2.25 10*3/uL 0.83-4.51 [facility] Work Phone: Basophil percentageon 2021 Basophil percentage 2.8 mg/dL 2.5-4.9 [facility]: Basophils/100 WBC (Bld) 1.0 % 0-1 [facility] Work Phone: Chloride [Moles/Vol] 115 mmol/L 98-107 [facility] Work Phone: Eosinophils/100 WBC (Bld) 3.5 % 0-5 [facility] Work Phone: Glucose [Mass/Vol] 85 mg/dL 74-106 [facility] Work [facility]: Neutrophils (Bld) [#/Vol] 2.4 10*3/uL 2.0-7.7 [facility] Work Phone: Neutrophils/100 WBC (Bld) 45.7 % 47-70 [facility] Work Phone: Potassium [Moles/Vol] 3.8 mmol/L 3.5-5.1 [facility] Work [facility]: Sodium [Moles/Vol] 143 mmol/L 136-145 [facility] Work Phone: WBC (Bld) [#/Vol] 5.2 10*3/uL 4.4-11.0 [facility] Work Phone: Blood erythrocytes count (nu mber/volume)on 01-07-2022 RBC (Bld) [#/Vol] 4.19 10*6/uL 4.6-6.2 [facility] Work [facility]: Blood hemoglobin measurement (mass/volume)on 01-07-2022 Hemoglobin (Bld) [Mass/Vol] 14.8 g/dL 13.0-16.5 [facility] Work Phone: Blood lymphocytes/100 leukoc yteson 01-07-2022 Lymphocytes/100 WBC (Bld) 43.4 % 19-41 [facility] Work Phone: Blood monocytes/100 leukocyt eson 01-07-2022 Monocytes/100 WBC (Bld) 6.2 % 0-10 [facility] Work Phone: Blood platelet mean volumeon 01-07-2022 Platelet mean volume (Bld) [Entitic vol] 11.5 fL 6.2-12.0 [facility] Work Phone: Determination of erythrocyte mean corpuscular volume (MCV)on 01-07-2022 MCV (RBC) [Entitic vol] 99.0 fL 80-94 [facility] Work Phone: Hematocrit Auto (Bld) [Volum e fraction]on 01-07-2022 Hematocrit (Bld) [Volume fraction] 41.5 % 40-54 [facility] Work Phone: Laboratory - Chemistry and C hemistry - challengeon 01-07-2022 CO2 [Moles/Vol] 24.0 mmol/L 21.0-32.0 [facility] Work Phone: [phone] Magnesium [Mass/Vol] 2.2 mg/dL 1.6-2.6 [facility] Work Phone: [phone] Urea nitrogen/Creatinine [Mass ratio] 7.4 mg/mg 10-20 [facility] Work Phone: [phone] Laboratory - Hematology and Cell countson 01-07-2022 Erythrocyte distribution width (RBC) [Entitic vol] 44.6 fL 35.1-43.9 [facility] Work Phone: [phone] Erythrocyte distribution width (RBC) [Ratio] 12.4 % 11.6-14.6 [facility] Work Phone: [phone] Immature granulocytes/100 WBC (Bld) 0.200 % 0.0-0.9 [facility] Work Phone: [phone] Comment on above: IG% - Immature Granu locytes (promyelocytes, myelocytes and metamyelocytes) > 1% indicates that a LEFT SHIFT is Present. MCH (RBC) [Entitic mass] 35.3 pg 27.0-32.0 [facility] Work Phone: [phone] Nucleated RBC/100 WBC (Bld) [Ratio] 0 % 0-5 [facility] Work Phone: [phone] MCHC Auto (RBC) [Mass/Vol]on 01-07-2022 MCHC (RBC) [Mass/Vol] 35.7 g/dL 32-36 [facility] Work Phone: [phone] No Panel Informationon 01-07 Estimated Creatinine Clearance Calc 92.00 ml/min [facility] Work Phone: [phone] Estimated GFR (MDRD) Amer 96 mL/min >60 [facility] Work Phone: [phone] Comment on above: GFR Calc Estimated GFR (MDRD) Non-Af Amer 79 mL/min >60 [facility] Work Phone: [phone] Comment on above: Non- GFR Calc Platelets bldon 01-07-2022 Platelets (Bld) [#/Vol] 182 10*3/uL 150-450 [facility] Work Phone: [phone] Serum or plasma calcium zo urement (mass/volume)on 01-07-2022 Calcium [Mass/Vol] 8.0 mg/dL 8.5-10.1 [facility] Work Phone: [phone] Serum or plasma creatinine m easurement (mass/volume)on 01-07-2022 Creatinine [Mass/Vol] 1.08 mg/dL 0.70-1.30 [facility] Work Phone: [phone] Comment on above: The validity of the calculated GFR & GFRAA in patients over 70 years has not been determined. Clinical correlation is essential. Serum or plasma urea nitroge n measurement (mass/volume)on 01-07-2022 Urea nitrogen [Mass/Vol] 8 mg/dL 7-18 [facility] Work Phone: Thin prep Papanicolaou smear with manual screeningon 01-07-2022 Thin prep Papanicolaou smear with manual screening 4 5-15 [facility] Work Phone: [phone] Absolute lymphocyte counton 01-06-2022 Lymphocytes Auto (Unsp spec) [#/Vol] 2.14 10*3/uL 0.83-4.51 [facility] Work Phone: [phone] Basophil percentageon 2021 Amylase [Catalytic activity/Vol] 34 U/L 25-115 [facility] Work Phone: Basophils/100 WBC (Bld) 0.8 % 0-1 [facility] Work Phone: [phone] Bilirubin [Mass/Vol] 0.30 mg/dL 0.20-1.00 [facility] Work Phone: [phone] Comment on above: For patients on eltr ombopag therapy, use of Dimension [place] TBIL is not recommended. Chloride [Moles/Vol] 112 mmol/L 98-107 [facility] Work Phone: Eosinophils/100 WBC (Bld) 2.1 % 0-5 [facility] Work Phone: [phone] Glucose [Mass/Vol] 100 mg/dL 74-106 [facility] Work Phone: Comment on above: Fasting Glucose resu lt from 100 to 125 mg/dL suggests IMPAIRED HOMEOSTASIS per A.D.A. criteria. Neutrophils (Bld) [#/Vol] 3.5 10*3/uL 2.0-7.7 [facility] Work Phone: Neutrophils/100 WBC (Bld) 56.1 % 47-70 [facility] Work Phone: [phone] Potassium [Moles/Vol] 3.7 mmol/L 3.5-5.1 [facility] Work Phone: Comment on above: Slight Hemolysis, Re sult may be falsely increased. Protein [Mass/Vol] 7.7 g/dL 6.4-8.2 [facility] Work Phone: Sodium [Moles/Vol] 143 mmol/L 136-145 [facility] Work Phone: WBC (Bld) [#/Vol] 6.2 10*3/uL 4.4-11.0 [facility] Work Phone: Blood erythrocytes count (nu mber/volume)on 01-06-2022 RBC (Bld) [#/Vol] 4.59 10*6/uL 4.6-6.2 [facility] Work Phone: Blood hemoglobin measurement (mass/volume)on 01-06-2022 Hemoglobin (Bld) [Mass/Vol] 15.8 g/dL 13.0-16.5 [facility] Work Phone: Blood lymphocytes/100 leukoc yteson 01-06-2022 Lymphocytes/100 WBC (Bld) 34.6 % 19-41 [facility] Work Phone: Blood monocytes/100 leukocyt eson 01-06-2022 Monocytes/100 WBC (Bld) 6.1 % 0-10 [facility] Work Phone: Blood platelet mean volumeon 01-06-2022 Platelet mean volume (Bld) [Entitic vol] 11.8 fL 6.2-12.0 [facility] Work Phone: Determination of erythrocyte mean corpuscular volume (MCV)on 01-06-2022 MCV (RBC) [Entitic vol] 97.8 fL 80-94 [facility] Work Phone: Direct bilirubinon Bilirubin.direct [Mass/Vol] 0.16 mg/dL 0.00-0.30 [facility] Work Phone: Erythrocyte sedimentation ra evette 01-06-2022 ESR (Bld) [Velocity] 11 mm/h 0-20 [facility] Work Phone: Hematocrit Auto (Bld) [Volum e fraction]on 01-06-2022 Hematocrit (Bld) [Volume fraction] 44.9 % 40-54 [facility] Work Phone: INR in Blood by Coagulation assayon 01-06-2022 INR Coag (Bld) [Relative time] 1.1 {INR} [facility] Work Phone: Laboratory - Chemistry and C hemistry - challengeon 01-06-2022 Lipase [Catalytic activity/Vol] 193 U/L 73-393 [facility] Work Phone: ALP [Catalytic activity/Vol] 58 U/L 45-117 [facility] Work Phone: ALT [Catalytic activity/Vol] 60 U/L 16-61 [facility] Work Phone: CO2 [Moles/Vol] 25.0 mmol/L 21.0-32.0 [facility] Work Phone: Globulin (S) [Mass/Vol] 3.8 g/dL 2.2-4.2 [facility] Work Phone: Urea nitrogen/Creatinine [Mass ratio] 7.5 mg/mg 10-20 [facility] Work Phone: Laboratory - Coagulationon 1 aPTT Coag (Bld) [Time] 30.4 s 24.1-36.2 [facility] Work Phone: [phone] PT Coag (PPP) [Time] 13.5 s 11.7-14.9 [facility] Work Phone: [phone] Laboratory - Hematology and Cell countson 01-06-2022 Erythrocyte distribution width (RBC) [Entitic vol] 43.8 fL 35.1-43.9 [facility] Work Phone: [phone] Erythrocyte distribution width (RBC) [Ratio] 12.2 % 11.6-14.6 [facility] Work Phone: [phone] Immature granulocytes/100 WBC (Bld) 0.300 % 0.0-0.9 [facility] Work Phone: [phone] Comment on above: IG% - Immature Granu locytes (promyelocytes, myelocytes and metamyelocytes) > 1% indicates that a LEFT SHIFT is Present. MCH (RBC) [Entitic mass] 34.4 pg 27.0-32.0 [facility] Work Phone: [phone] Nucleated RBC/100 WBC (Bld) [Ratio] 0 % 0-5 [facility] [facility] Work Phone: [phone] MCHC Auto (RBC) [Mass/Vol]on 01-06-2022 MCHC (RBC) [Mass/Vol] 35.2 g/dL 32-36 [facility] Work Phone: No Panel Informationon 01-06 Estimated Creatinine Clearance Calc 82.80 ml/min [facility] Work Phone: [phone] Estimated GFR (MDRD) Amer 85 mL/min >60 [facility] Work Phone: [phone] Comment on above: GFR Calc Estimated GFR (MDRD) Non-Af Amer 70 mL/min >60 [facility] Work Phone: [phone] Comment on above: Non- GFR Calc Platelets bldon 01-06-2022 Platelets (Bld) [#/Vol] 219 10*3/uL 150-450 [facility] Work Phone: [phone] Serum or plasma C reactive p rotein measurement (mass/volume)on 01-06-2022 CRP [Mass/Vol] mg/L 0.0-3.0 [facility] Work Phone: Comment on above: C-Reactive Protein ( CRP) provides useful information for thediagnosis, therapy and monitoring of inflammatory processesand associated diseases. For the evaluation of Relative Riskfor Cardiovascular Disease, a High Sensitivity CRP (HSCRP)should be ordered. Serum or plasma albumin zo urement (mass/volume)on 01-06-2022 Albumin [Mass/Vol] 3.9 g/dL 3.2-5.0 [facility] Work Phone: [phone] Serum or plasma calcium zo urement (mass/volume)on 01-06-2022 Calcium [Mass/Vol] 8.9 mg/dL 8.5-10.1 [facility] Work Phone: [phone] Serum or plasma creatinine m easurement (mass/volume)on 01-06-2022 Creatinine [Mass/Vol] 1.20 mg/dL 0.70-1.30 [facility] Work Phone: Comment on above: The validity of the calculated GFR & GFRAA in patients over 70 years has not been determined. Clinical correlation is essential. Serum or plasma urea nitroge n measurement (mass/volume)on 01-06-2022 Urea nitrogen [Mass/Vol] 9 mg/dL 7-18 [facility] Work Phone: [phone] Thin prep Papanicolaou smear with manual screeningon 01-06-2022 Thin prep Papanicolaou smear with manual screening 280 U/L 87-241 [facility] Work Phone: [phone] Thin prep Papanicolaou smear with manual screening 28 U/L 15-37 [facility] Work Phone: [phone] Comment on above: Slight Hemolysis, Re sult may be falsely increased. Thin prep Papanicolaou smear with manual screening 6 5-15 [facility] Work Phone: [phone] Absolute lymphocyte counton 01-02-2022 Lymphocytes Auto (Unsp spec) [#/Vol] 2.63 10*3/uL 0.83-4.51 [facility] Work Phone: Basophil percentageon 2021 Basophils/100 WBC (Bld) 0.8 % 0-1 [facility] Work Phone: Eosinophils/100 WBC (Bld) 2.5 % 0-5 [facility] Work Phone: Neutrophils (Bld) [#/Vol] 3.2 10*3/uL 2.0-7.7 [facility] Work Phone: Neutrophils/100 WBC (Bld) 49.5 % 47-70 [facility] Work Phone: WBC (Bld) [#/Vol] 6.5 10*3/uL 4.4-11.0 [facility]: Blood erythrocytes count (nu mber/volume)on 01-02-2022 RBC (Bld) [#/Vol] 4.47 10*6/uL 4.6-6.2 [facility]: Blood hemoglobin measurement (mass/volume)on 01-02-2022 Hemoglobin (Bld) [Mass/Vol] 15.2 g/dL 13.0-16.5 [facility] Work Phone: Blood lymphocytes/100 leukoc yteson 01-02-2022 Lymphocytes/100 WBC (Bld) 40.8 % 19-41 [facility] Work Phone: Blood monocytes/100 leukocyt eson 01-02-2022 Monocytes/100 WBC (Bld) 5.9 % 0-10 [facility] Work Phone: Blood platelet mean volumeon 01-02-2022 Platelet mean volume (Bld) [Entitic vol] 13.0 fL 6.2-12.0 [facility] Work Phone: Determination of erythrocyte mean corpuscular volume (MCV)on 01-02-2022 MCV (RBC) [Entitic vol] 98.0 fL 80-94 [facility] Work Phone: [phone] Hematocrit Auto (Bld) [Volum e fraction]on 01-02-2022 Hematocrit (Bld) [Volume fraction] 43.8 % 40-54 [facility] Work Phone: [phone] Laboratory - Hematology and Cell countson 01-02-2022 Erythrocyte distribution width (RBC) [Entitic vol] 43.8 fL 35.1-43.9 [facility] Work Phone: [phone] Erythrocyte distribution width (RBC) [Ratio] 12.1 % 11.6-14.6 [facility] Work Phone: [phone] Immature granulocytes/100 WBC (Bld) 0.500 % 0.0-0.9 [facility] Work Phone: [phone] Comment on above: IG% - Immature Granu locytes (promyelocytes, myelocytes and metamyelocytes) > 1% indicates that a LEFT SHIFT is Present. MCH (RBC) [Entitic mass] 34.0 pg 27.0-32.0 [facility] Work Phone: Nucleated RBC/100 WBC (Bld) [Ratio] 0 % 0-5 [facility] Work Phone: [phone] MCHC Auto (RBC) [Mass/Vol]on 01-02-2022 MCHC (RBC) [Mass/Vol] 34.7 g/dL 32-36 [facility] Work Phone: [phone] Platelets bldon 01-02-2022 Platelets (Bld) [#/Vol] 172 10*3/uL 150-450 [facility] Work Phone: Basophil percentageon 2021 Chloride [Moles/Vol] 110 mmol/L 98-107 [facility] Work Phone: Glucose [Mass/Vol] 83 mg/dL 74-106 [facility] Work Phone: [phone] Potassium [Moles/Vol] 3.6 mmol/L 3.5-5.1 [facility] Work Phone: [phone] Comment on above: Slight Hemolysis, Re sult may be falsely increased. Sodium [Moles/Vol] 141 mmol/L 136-145 [facility] Work Phone: Laboratory - Chemistry and C hemistry - challengeon 01-01-2022 CO2 [Moles/Vol] 26.0 mmol/L 21.0-32.0 [facility] Work Phone: Urea nitrogen/Creatinine [Mass ratio] 13.6 mg/mg 10-20 [facility] Work Phone: No Panel Informationon 01-01 Estimated Creatinine Clearance Calc 84.20 ml/min [facility] Work Phone: Estimated GFR (MDRD) Amer 87 mL/min >60 [facility] Work Phone: Comment on above: GFR Calc Estimated GFR (MDRD) Non-Af Amer 72 mL/min >60 [facility] Work Phone: Comment on above: Non- GFR Calc Serum or plasma calcium zo urement (mass/volume)on 01-01-2022 Calcium [Mass/Vol] 8.1 mg/dL 8.5-10.1 [facility] Work Phone: Serum or plasma creatinine m easurement (mass/volume)on 01-01-2022 Creatinine [Mass/Vol] 1.18 mg/dL 0.70-1.30 [facility] Work Phone: Comment on above: The validity of the calculated GFR & GFRAA in patients over 70 years has not been determined. Clinical correlation is essential. Serum or plasma urea nitroge n measurement (mass/volume)on 01-01-2022 Urea nitrogen [Mass/Vol] 16 mg/dL 7-18 [facility] Work Phone: [phone] Thin prep Papanicolaou smear with manual screeningon 01-01-2022 Thin prep Papanicolaou smear with manual screening 5 5-15 [facility] Work Phone: [phone] Absolute lymphocyte counton 12-31-2021 Lymphocytes Auto (Unsp spec) [#/Vol] 2.86 10*3/uL 0.83-4.51 [facility] Work Phone: Basophil percentageon 2021 Basophils/100 WBC (Bld) 0.7 % 0-1 [facility] Work Phone: Bilirubin [Mass/Vol] 0.60 mg/dL 0.20-1.00 [facility] Work Phone: Comment on above: For patients on eltr ombopag therapy, use of Dimension [place] TBIL is not recommended. Chloride [Moles/Vol] 106 mmol/L 98-107 [facility] Work Phone: Eosinophils/100 WBC (Bld) 1.5 % 0-5 [facility] Work Phone: Glucose [Mass/Vol] 85 mg/dL 74-106 [facility] Work Phone: Neutrophils (Bld) [#/Vol] 5.4 10*3/uL 2.0-7.7 [facility] Work Phone: Neutrophils/100 WBC (Bld) 59.2 % 47-70 [facility] Work Phone: Potassium [Moles/Vol] 3.6 mmol/L 3.5-5.1 [facility] Work Phone: Comment on above: Moderate Hemolysis, Result may be falsely increased. Protein [Mass/Vol] 7.6 g/dL 6.4-8.2 [facility] Work Phone: Sodium [Moles/Vol] 140 mmol/L 136-145 [facility] Work Phone: WBC (Bld) [#/Vol] 9.1 10*3/uL 4.4-11.0 [facility] Work Phone: Blood erythrocytes count (nu mber/volume)on 12-31-2021 RBC (Bld) [#/Vol] 4.91 10*6/uL 4.6-6.2 [facility] Work Phone: Blood hemoglobin measurement (mass/volume)on 12-31-2021 Hemoglobin (Bld) [Mass/Vol] 17.0 g/dL 13.0-16.5 [facility] Work Phone: Blood lymphocytes/100 leukoc yteson 12-31-2021 Lymphocytes/100 WBC (Bld) 31.3 % 19-41 [facility] Work Phone: [phone] Blood monocytes/100 leukocyt eson 12-31-2021 Monocytes/100 WBC (Bld) 6.9 % 0-10 [facility] Work Phone: [phone] Blood platelet mean volumeon 12-31-2021 Platelet mean volume (Bld) [Entitic vol] 12.6 fL 6.2-12.0 [facility] Work Phone: [phone] Determination of erythrocyte mean corpuscular volume (MCV)on 12-31-2021 MCV (RBC) [Entitic vol] 98.2 fL 80-94 [facility] Work Phone: Direct bilirubinon Bilirubin.direct [Mass/Vol] 0.09 mg/dL 0.00-0.30 [facility] Work Phone: Hematocrit Auto (Bld) [Volum e fraction]on 12-31-2021 Hematocrit (Bld) [Volume fraction] 48.2 % 40-54 [facility] Work Phone: [phone] INR in Blood by Coagulation assayon 12-31-2021 INR Coag (Bld) [Relative time] 1.0 {INR} [facility] Work Phone: [phone] Laboratory - Chemistry and C hemistry - challengeon 12-31-2021 ALP [Catalytic activity/Vol] 56 U/L 45-117 [facility] Work Phone: ALT [Catalytic activity/Vol] 66 U/L 16-61 [facility] Work Phone: [phone] CO2 [Moles/Vol] 26.0 mmol/L 21.0-32.0 [facility] Work Phone: [phone] Globulin (S) [Mass/Vol] 3.3 g/dL 2.2-4.2 [facility] Work Phone: [phone] Lipase [Catalytic activity/Vol] 134 U/L 73-393 [facility] Work Phone: [phone] Urea nitrogen/Creatinine [Mass ratio] 17.2 mg/mg 10-20 [facility] Work Phone: Laboratory - Coagulationon 0 12-31-2021 aPTT Coag (Bld) [Time] 31.5 s 24.1-36.2 [facility] Work Phone: [phone] PT Coag (PPP) [Time] 12.7 s 11.7-14.9 [facility] Work [facility]: [phone] Laboratory - Hematology and Cell countson 12-31-2021 Erythrocyte distribution width (RBC) [Entitic vol] 44.1 fL 35.1-43.9 [facility] Work Phone: [phone] Erythrocyte distribution width (RBC) [Ratio] 12.1 % 11.6-14.6 [facility] Work Phone: [phone] Immature granulocytes/100 WBC (Bld) 0.400 % 0.0-0.9 [facility] Work Phone: [phone] Comment on above: IG% - Immature Granu locytes (promyelocytes, myelocytes and metamyelocytes) > 1% indicates that a LEFT SHIFT is Present. MCH (RBC) [Entitic mass] 34.6 pg 27.0-32.0 [facility] Work Phone: [phone] Nucleated RBC/100 WBC (Bld) [Ratio] 0 % 0-5 [facility] Work Phone: [phone] MCHC Auto (RBC) [Mass/Vol]on 12-31-2021 MCHC (RBC) [Mass/Vol] 35.3 g/dL 32-36 [facility] Work Phone: No Panel Informationon 12-31 Estimated Creatinine Clearance Calc 77.63 ml/min [facility] Work Phone: [phone] Estimated GFR (MDRD) Amer 79 mL/min >60 [facility] Work Phone: Comment on above: GFR Calc Estimated GFR (MDRD) Non-Af Amer 65 mL/min >60 [facility] Work Phone: Comment on above: Non- GFR Calc Platelets bldon 12-31-2021 Platelets (Bld) [#/Vol] 177 10*3/uL 150-450 [facility] Work Phone: Serum or plasma albumin zo urement (mass/volume)on 12-31-2021 Albumin [Mass/Vol] 4.3 g/dL 3.2-5.0 [facility] Work Phone: Serum or plasma calcium zo urement (mass/volume)on 12-31-2021 Calcium [Mass/Vol] 9.6 mg/dL 8.5-10.1 [facility] Work Phone: Serum or plasma creatinine m easurement (mass/volume)on 12-31-2021 Creatinine [Mass/Vol] 1.28 mg/dL 0.70-1.30 [facility] Work Phone: Comment on above: The validity of the calculated GFR & GFRAA in patients over 70 years has not been determined. Clinical correlation is essential. Serum or plasma urea nitroge n measurement (mass/volume)on 12-31-2021 Urea nitrogen [Mass/Vol] 22 mg/dL 7-18 [facility] Work Phone: Thin prep Papanicolaou smear with manual screeningon 12-31-2021 Thin prep Papanicolaou smear with manual screening 33 U/L 15-37 [facility] Work Phone: Comment on above: Moderate Hemolysis, Result may be falsely increased. Thin prep Papanicolaou smear with manual screening 8 5-15 [facility] Work Phone: Absolute lymphocyte counton 12-02-2021 Lymphocytes Auto (Unsp spec) [#/Vol] 3.67 10*3/uL 0.83-4.51 [facility] Work Phone: Basophil percentageon 2021 Basophils/100 WBC (Bld) 0.9 % 0-1 [facility] Work Phone: Chloride [Moles/Vol] 103 mmol/L 98-107 [facility] Work Phone: Eosinophils/100 WBC (Bld) 1.2 % 0-5 [facility] Work Phone: Glucose [Mass/Vol] 89 mg/dL 74-106 [facility] Work Phone: Neutrophils (Bld) [#/Vol] 6.1 10*3/uL 2.0-7.7 [facility] Work Phone: Neutrophils/100 WBC (Bld) 57.0 % 47-70 [facility] Work Phone: Potassium [Moles/Vol] 3.8 mmol/L 3.5-5.1 [facility]: Sodium [Moles/Vol] 138 mmol/L 136-145 [facility] Work Phone: WBC (Bld) [#/Vol] 10.6 10*3/uL 4.4-11.0 [facility] Work [facility]: Blood erythrocytes count (nu mber/volume)on 12-02-2021 RBC (Bld) [#/Vol] 5.85 10*6/uL 4.6-6.2 [facility] Work Phone: Blood hemoglobin measurement (mass/volume)on 12-02-2021 Hemoglobin (Bld) [Mass/Vol] 20.8 g/dL 13.0-16.5 [facility] Work Phone: Comment on above: CRITICAL VALUE VERIF IED. CALLED TO JONNA SUNSHINE12/02/21 Alis Sweeney.RESULTS READ BACK BY SAME . Blood lymphocytes/100 leukoc yteson 12-02-2021 Lymphocytes/100 WBC (Bld) 34.5 % 19-41 [facility] Work Phone: Blood monocytes/100 leukocyt eson 12-02-2021 Monocytes/100 WBC (Bld) 6.1 % 0-10 [facility] Work Phone: Blood platelet mean volumeon 12-02-2021 Platelet mean volume (Bld) [Entitic vol] 11.6 fL 6.2-12.0 [facility] Work Phone: Determination of erythrocyte mean corpuscular volume (MCV)on 12-02-2021 MCV (RBC) [Entitic vol] 97.6 fL 80-94 [facility] Work Phone: Hematocrit Auto (Bld) [Volum e fraction]on 12-02-2021 Hematocrit (Bld) [Volume fraction] 57.1 % 40-54 [facility] Work Phone: INR in Blood by Coagulation assayon 12-02-2021 INR Coag (Bld) [Relative time] 1.0 {INR} [facility] Work Phone: Laboratory - Chemistry and C hemistry - challengeon 12-02-2021 CO2 [Moles/Vol] 28.0 mmol/L 21.0-32.0 [facility] Work Phone: Urea nitrogen/Creatinine [Mass ratio] 9.4 mg/mg 10-20 [facility] Work Phone: Laboratory - Coagulationon 0 12-02-2021 aPTT Coag (Bld) [Time] 29.3 s 24.1-36.2 [facility] Work Phone: PT Coag (PPP) [Time] 13.4 s 11.7-14.9 [facility] Work Phone: Laboratory - Hematology and Cell countson 12-02-2021 Erythrocyte distribution width (RBC) [Entitic vol] 43.5 fL 35.1-43.9 [facility] Work Phone: Erythrocyte distribution width (RBC) [Ratio] 11.9 % 11.6-14.6 [facility] Work Phone: Immature granulocytes/100 WBC (Bld) 0.300 % 0.0-0.9 [facility] Work Phone: Comment on above: IG% - Immature Granu locytes (promyelocytes, myelocytes and metamyelocytes) > 1% indicates that a LEFT SHIFT is Present. MCH (RBC) [Entitic mass] 35.6 pg 27.0-32.0 [facility] Work Phone: Nucleated RBC/100 WBC (Bld) [Ratio] 0 % 0-5 [facility] Work Phone: MCHC Auto (RBC) [Mass/Vol]on 12-02-2021 MCHC (RBC) [Mass/Vol] 36.4 g/dL 32-36 [facility] Work Phone: No Panel Informationon 12-02 Troponin I High Sensitivity 5 pg/mL 3.0-78.0 [facility] Work Phone: Comment on above: Please Note: New Dona t Units and Gender Specific Reference Ranges. For more information see Policy Stat Procedure [place] High Sensitivity Troponin (TNIH) and attachments. Estimated Creatinine Clearance Calc 60.14 ml/min [facility] Work Phone: Estimated GFR (MDRD) Amer 61 mL/min >60 [facility] Work Phone: Comment on above: GFR Calc Estimated GFR (MDRD) Non-Af Amer 50 mL/min >60 [facility] Work Phone: Comment on above: Non- GFR Calc Platelets bldon 12-02-2021 Platelets (Bld) [#/Vol] 259 10*3/uL 150-450 [facility] Work Phone: Review by pathologiston 11-05 Pathologist review Steve (Unsp spec) [Interp] Lianne thakkar [facility] Work Phone: Pathologist review Steve (Unsp spec) [Interp] Reviewed [facility] Work Phone: Comment on above: Previous reported re sult: Lianne thakkar Edited by: RGOOD on 12/03/21:1321Polycythemia MacrocytosisClinical correlation necessary.Zenon Alejo M.D. 12/03/21This case was reviewed with Dr. Stiles who concurs with the above diagnosis. AMENDED REPORT 12/03/21 1321 PATH REV previously reported as: August Serum or plasma calcium zo urement (mass/volume)on 12-02-2021 Calcium [Mass/Vol] 10.6 mg/dL 8.5-10.1 [facility] Work Phone: Serum or plasma creatinine m easurement (mass/volume)on 12-02-2021 Creatinine [Mass/Vol] 1.60 mg/dL 0.70-1.30 [facility] Work Phone: Comment on above: The validity of the calculated GFR & GFRAA in patients over 70 years has not been determined. Clinical correlation is essential. Serum or plasma urea nitroge n measurement (mass/volume)on 12-02-2021 Urea nitrogen [Mass/Vol] 15 mg/dL 7-18 [facility] Work Phone: Thin prep Papanicolaou smear with manual screeningon 12-02-2021 Thin prep Papanicolaou smear with manual screening 7 5-15 [facility] Work Phone: BMPon 03-19-2021 Anion gap [Moles/Vol] 10 mmol/L Normal 5-16 [facility] Comment on above: Order Comment: Campu s: M Performed By: #### L 500.75581, L500.70078, L500.64883, L500.82346 #### [facility] [address] [place] [address] Calcium [Mass/Vol] 10.3 mg/dL Normal 8.5-10.5 [facility] Comment on above: Order Comment: Campu s: M Result Comment: NOTE NEW NORMAL RANGE DUE TO REAGENT CHANGE Performed By: #### L 500.83348, L500.35647, L500.46641, L500.73574 #### [facility] [address] [place] [address] Chloride [Moles/Vol] 109 mmol/L High 98-107 [facility] Comment on above: Order Comment: Campu s: M Performed By: #### L 500.53468, L500.90009, L500.98137, L500.44973 #### [facility] [address] [place] [address] CO2 [Moles/Vol] 23.0 mmol/L Normal 21-32 [facility] Comment on above: Order Comment: Campu s: M Performed By: #### L 500.00094, L500.54681, L500.96222, L500.05986 #### [facility] [address] [place] [address] Creatinine [Mass/Vol] 0.85 mg/dL Normal 0.5-1.4 [facility] Comment on above: Order Comment: Campu s: M Result Comment: NOTE NEW NORMAL RANGE DUE TO REAGENT CHANGE Patients receiving either N-Acetylcysteine (NAC) or Metamizole prior to venipuncture, may have falsely depressed results. Performed By: #### L 500.24880, L500.55753, L500.02183, L500.43128 #### [facility] [address] [place] [address] Glucose [Mass/Vol] 94 mg/dL Normal 70-100 [facility] Comment on above: Order Comment: Campu s: M Result Comment: 70-1 00- Normal Fasting; 100-125 Impaired Fasting; greater than 126 on more than one result- Diabetes. ADA guidelines. Results may be falsely elevated after the administration of Sulfapyridine. Results may be falsely depressed after the administration of Sulfasalazine. Performed By: #### L 500.63840, L500.19766, L500.79199, L500.46783 #### [facility] [address] [place] [address] Potassium [Moles/Vol] 4.1 mmol/L Normal 3.5-5.1 [facility] Comment on above: Order Comment: Campu s: M Result Comment: Slig ht Hemolysis, Result may be affected. Performed By: #### L 500.88289, L500.25929, L500.00786, L500.00142 #### [facility] [address] [place] [address] Sodium [Moles/Vol] 142 mmol/L Normal 136-145 [facility] Comment on above: Order Comment: Campu s: M Performed By: #### L 500.07478, L500.19051, L500.81985, L500.86096 #### [facility] [place] [address] Urea nitrogen [Mass/Vol] 12 mg/dL Normal 7-26 [facility] Comment on above: Order Comment: Campu s: M Performed By: #### L 500.99172, L500.17085, L500.66257, L500.59254 #### [facility] [address] [place] [address] Urea nitrogen/Creatinine [Mass ratio] 14 mg/mg Low 15-24 [facility] Comment on above: Order Comment: Campu s: M Performed By: #### L 500.53189, L500.32483, L500.35348, L500.87657 #### [facility] [place] [address] CBC W/DIFFon 03-19-2021 BASO ABS 0.10 K/CU MM Normal 0-0.2 [facility] Comment on above: Order Comment: Campu s: M Performed By: #### L 200.37470 ####[facility] [id number] [place] [id number]# [phone] Basophils/100 WBC (Bld) 1.1 % Normal 0-2 [facility] Comment on above: Order Comment: Campu s: M Performed By: #### L 200.25682 ####[facility] [id number] [place] [address], [place] [address]Vf# [phone] EOS ABS 0.10 K/CU MM Normal 0-0.5 [facility] Comment on above: Order Comment: Campu s: M Performed By: #### L 200.26711 ####[facility] [id number] [place] [address]Do# [phone] Eosinophils/100 WBC (Bld) 1.2 % Normal 0-5 [facility] Comment on above: Order Comment: Campu s: M Performed By: #### L 200.66512 ####[place] [id number]# [phone] Erythrocyte distribution width (RBC) [Ratio] 12.4 % Normal 11-14.5 [facility] Comment on above: Order Comment: Campu s: M Performed By: #### L 200.34566 ####[place] [id number]# [phone] Hematocrit (Bld) [Volume fraction] 48.9 % Normal 41.0-53.0 [facility] Comment on above: Order Comment: Campu s: M Performed By: #### L 200.74544 ####[facility] [id number] [place] [address]Ri# [phone] Hemoglobin (Bld) [Mass/Vol] 17.6 g/dL High 13.5-17.5 [facility] Comment on above: Order Comment: Campu s: M Performed By: #### L 200.47345 ####[facility] [id number] [place] [address]Ji# [phone] IMMATR GRAN ABS 0.10 K/CU MM Normal Less than 2 [facility] Comment on above: Order Comment: Campu s: M Performed By: #### L 200.44759 ####[facility] [id number] [place] [address]Nz# [phone] IMMATURE GRAN % 1.0 % Normal Less than 2 [facility] Comment on above: Order Comment: Campu s: M Performed By: #### L 200.12897 ####[facility] [id number] [place], [place] [address]Yb# [phone] LYMPH ABS 3.40 K/CU MM Normal 0.9-4.4 [facility] Comment on above: Order Comment: Campu s: M Performed By: #### L 200.81646 ####[address] [address]Kc# [phone] Lymphocytes/100 WBC (Bld) 46.3 % High 20-40 [facility] Comment on above: Order Comment: Campu s: M Performed By: #### L 200.19775 ####[address] [address]Dv# [phone] MCHC (RBC) [Mass/Vol] 36.0 g/dL Normal 32.0-36.0 [facility] Comment on above: Order Comment: Campu s: M Performed By: #### L 200.85616 ####[address] [address]Ph# [phone] MCV (RBC) [Entitic vol] 97.2 fL Normal 80.0-99.0 [facility] Comment on above: Order Comment: Campu s: M Performed By: #### L 200.65176 ####[facility] [id number] [place] [address]Ho# [phone] MONO ABS 0.50 K/CU MM Normal 0.1-1.1 [facility] Comment on above: Order Comment: Campu s: M Performed By: #### L 200.17161 ####[facility] [id number] [place] [address]Xc# [phone] Monocytes/100 WBC (Bld) 7.3 % Normal 2-10 M [facility] Comment on above: Order Comment: Campu s: M Performed By: #### L 200.31494 ####[facility] [id number] [place], [place] [address]Un# [phone] NEUTROPHIL ABS 3.10 K/CU MM Normal 2.0-8.3 [facility] Comment on above: Order Comment: Campu s: M Performed By: #### L 200.91397 ####[facility] [facility] [id number] [place], [place] [address]Vd# [phone] Neutrophils/100 WBC (Bld) 43.1 % Low 45-75 [facility] Comment on above: Order Comment: Campu s: M Performed By: #### L 200.93780 ####[facility] [id number] [place] [address] 249[address]Ui# [phone] Nucleated RBC/100 WBC (Bld) [Ratio] 0.0 % Normal Less than 1 [facility] Comment on above: Order Comment: Campu s: M Performed By: #### L 200.95924 ####[facility] [id number] [place], [place] [address]Ph# [phone] Platelet mean volume (Bld) [Entitic vol] 12.1 fL Normal 9.4-12.4 [facility] Comment on above: Order Comment: Campu s: M Performed By: #### L 200.72514 ####[facility] [id number] [place], [place] [address]Fi# [phone] PLT 171 K/CU MM Normal 150-450 [facility] Comment on above: Order Comment: Campu s: M Performed By: #### L 200.89737 ####[facility] [id number] [place] [address]Gd# [phone] RBC 5.03 M/CU MM Normal 4.50-6.00 [facility] Comment on above: Order Comment: Campu s: M Performed By: #### L 200.76779 ####[facility] [id number] [place] [address] 20400At# [phone] WBC 7.2 K/CUMM Normal 4.5-11.0 [facility] Comment on above: Order Comment: Eulalio s: M Performed By: #### L 200.66456 ####[facility] [id number] [place], [place] [address]Fq# [phone] CT ABD/PEL W IV CONTRAST ONLizzy Adam 03-19-2021 CT ABD/PEL W IV CONTRAST ONLY CT ABDOMEN AND PELVIS WITH CONTRAST: Clinical Statement: Abdomen pain Comparison: None TECHNIQUE: Helical acquired transaxial images were obtained through the abdomen and pelvis. Intravenous contrast:100 cc of Isovue-300. Enteric contrast:None FINDINGS: Lower thorax:Lung bases are clear. The lower heart chambers distal esophagus and descending aorta are within normal limits. Liver:There is fatty infiltration of liver with sparing at gallbladder fossa. No mass Biliary system:No cholelithiasis or ductal dilatation Spleen:Normal morphology no mass Pancreas:No mass inflammation or ductal dilatation Adrenal glands:Normal morphology no mass Kidneys:No stones hydronephrosis are enhancing mass GI tract:The morphology of the stomach is within normal limits. The small bowel and colon are normal in caliber. The terminal ileum and cecum are normal. The patient is status post appendectomy. No focal colonic wall thickening Pelvis:The rectum prostate gland seminal vesicles and bladder are normal Lymphadenopathy:There is no inguinal pelvic retroperitoneal or mesenteric lymphadenopathy Peritoneum/retroperiton eum:No ascites. No mesenteric inflammation Vascular:The celiac artery and superior mesenteric artery are patent. The aorta is normal in caliber. The portal vein and splenic vein are patent Osseous:No suspicious lytic or sclerotic osseous lesions. No compression fractures Superficial soft tissues:Unremarkable. The abdominal wall is intact Sewer System Supervisor film:No additional abnormality IMPRESSION: No acute abnormality Hepatic steatosis This report was electronically signed by Mandeep Colmenares MD 03/19/2021 1:08 PM Reported By: MANDEEP COLMENARES M.D. Signed By: MANDEEP COLMENARES M.D. [facility] 03-19-2021 EMERGENCY PHYSICIAN REPORT This is a preliminary report only, as the practitioner review and authentication has not occurred. [facility] ER PHYSICIAN ASSESSMENT RECORDS : FlexChartData Event Time: 03/19/2021 11:15 Status: Signed [facility] Aadlid Mclean [[id number]] Attending Physician 41 / M / 1980 Chart (V2b) Chart created at 03/19/2021 11:08 by Bryan Schuster Chart closed at 03/19/2021 13:58 Entry in Emergency Department at 03/19/2021 07:41, departure at 03/19/2021 14:06 Patient Name: Adalid Mclean Record Number: [id number] Date: 03/19/2021 11:08 Entered Department at: 03/19/2021 07:41 Patient Seen at: 03/19/2021 10:46 Historian: Patient PCP: *Unknown,PCP Chief Complaint:pt complains of abd pain with vomiting. pt states pain is mid lower abd since waking up this morning. denies urinary issues. Triage Note reviewed and Initial Vital Signs reviewed. Temperature: 98.3 F (36.8 C). Pulse: 98. Respiratory Rate: 16. Blood-pressure: 166/112. Oxygen Saturation: 96%. History of Present Illness: Patient is a 41-year-old male presenting to the emergency department with chief complaint of lower abdominal pain. Patient states he developed a sharp lower abdominal pain this morning, states he felt completely normal leading up to that point. States he did not have any symptoms throughout the day [facility] PATIENT NAME: ADALID MCLEAN [address] [facility] [address] Wagner MEDICAL REC #: [id number] [place] [address] EMERGENCY DEPARTMENT REPORT EMERGENCY DEPARTMENT PHYSICIAN yesterday, had been eating and drinking normally. Patient denies any associated nausea and vomiting with his abdominal pain, denies any constipation or diarrhea, no bloody stools, no back pain, no urinary symptoms, no chest pain or shortness of breath, no fevers or chills, no other complaints. Review of Systems. All other systems reviewed and negative.. Past History, Medications, Allergies, Social History and Family History reviewed in nurses note. Medications: Reviewed RN Note. LISINOPRIL SMG TABLET - PO daily, verified with pt 03/19/21 Allergies: Reviewed RN Note No Known Allergies Social History: Reviewed RN Note. Family History: Reviewed RN Note Physical Examination: General: Alert; Oriented x 3. NAD HEENT: Eyes: PERRL; . Oropharynx / Throat: Normal Pharynx, Moist mucous membranes. Respiratory: No Resp Distress and Normal Breath Sounds Cardio-Vascular: No murmur, No rub and RRR Abdomen: Normal Bowel Sounds, No Organomegaly and Soft; negative for Rebound or Guarding; Non-distended. Moderate tenderness diffusely with tenderness greatest throughout the upper abdomen. No pulsatile mass or abdominal bruit. Back: No CVA tenderness and Non-tender Extremity: No Calf Tenderness, No edema and Normal Equal pulses; Cap refill andlt; 2 sec. Normal strength/sensation. Neurological: Alert, Oriented X3 Skin: No rash, No Petechiae, Warm and Dry Psychological: Mood/Affect Normal BMP, information as of 03/19/2021, 8:47 am 142 --------+--------+----- ---andlt; 94 Anion Gap = 10 4.1 BUN/CREA: 14; CALCIUM TOTAL: 10.3 Mg/Dl [facility] PATIENT NAME: ADALID MCLEAN [facility] [address] [place] MEDICAL REC #: [id number] [place] [address] EMERGENCY DEPARTMENT REPORT EMERGENCY DEPARTMENT PHYSICIAN CBC W/DIFF, information as of 03/19/2021, 8:44 am 97.2 / 17.6* / 7.2 andgt;------andlt; 171 / 48.9 / N:43.1* BASO ABS: 0.10 K/Cu Mm; BASOPHIL %: 1.1 %; EOS ABS: 0.10 K/Cu Mm; EOSINOPHIL %: 1.2 %; IMMATR GRAN ABS: 0.10 K/Cu Mm; IMMATURE GRAN %: 1.0 %; LYMPH %: 46.3 %; LYMPH ABS: 3.40 K/Cu Mm; MCHC: 36.0 Gm/Dl; MONO ABS: 0.50 K/Cu Mm; MONOCYTE %: 7.3 %; MPV: 12.1; NEUTROPHIL ABS: 3.10 K/Cu Mm; NRBC: 0.0 %; RBC: 5.03 M/Cu Mm; RDW: 12.4 UA COMPLETE, information as of 03/19/2021, 8:47 am + +---------+- --------+---------+---- -----+-------- + + +---------+- --------+---------+---- -----+-------- + + +---------+- --------+---------+---- -----+-------- + + +---------+- --------+---------+---- -----+-------- + + +---------+- --------+---------+---- -----+-------- + LIPASE, information as of 03/19/2021, 8:47 am LIPASE: 36 U/L LIVER, information as of 03/19/2021, 8:47 am A/G RATIO: 1.5; ALBUMIN: 4.5 Gm/Dl; ALK PHOS: 64 U/L; BILI DIRECT: 0.1 Mg/Dl; BILI TOTAL: 0.30 Mg/Dl; GLOBULIN: 3.0 Gm/Dl; SGOT (AST): 100 U/L; SGPT (ALT): 259 [facility] PATIENT NAME: ADALID MCLEAN [address] [place] [address] Dr. Wagner MEDICAL REC #: [id number] [place] [address] EMERGENCY DEPARTMENT REPORT EMERGENCY DEPARTMENT PHYSICIAN U/L; TP: 7.5 Gm/Dl Imaging Study Obtained: CT ABD/PEL W IV CONTRAST ONLY Imaging Study Obtained: CT ABD/PEL W IV (more content not included)... Normal [facility] GFR ESTon 03-19-2021 IF AMER Greater than 60 Normal [facility] Comment on above: Order Comment: Campu s: M Performed By: #### L 500.18296, L500.76515, L500.20968, L500.30256 #### [facility] [address] [place] [address] IF non-AFR AMER Greater than 60 Normal [facility] Comment on above: Order Comment: Campu s: M Performed By: #### L 500.25723, L500.78781, L500.79879, L500.74655 #### [facility] [address] [place] [address] LIPASEon 03-19-2021 Lipase [Catalytic activity/Vol] 36 U/L Normal 12-60 [facility] Comment on above: Order Comment: Campu s: M Result Comment: NOTE NEW NORMAL RANGE DUE TO REAGENT CHANGE Performed By: #### L 500.37308, L500.11384, L500.78843, L500.91244 #### [facility] [place] [address] LIVERon 03-19-2021 Albumin [Mass/Vol] 4.5 g/dL Normal 3.2-5.0 [facility] Comment on above: Order Comment: Campu s: M Performed By: #### L 500.73652, L500.52153, L500.53659, L500.73952 #### [facility] [address] [place] [address] Albumin/Globulin [Mass ratio] 1.5 {ratio} Normal 0.8-2.0 [facility] Comment on above: Order Comment: Campu s: M Performed By: #### L 500.32975, L500.44769, L500.12481, L500.85635 #### [facility] [address] [place], [place] [address] ALK PHOS 64 U/L Normal 45-117 [facility] Comment on above: Order Comment: Campu s: M Performed By: #### L 500.78512, L500.75905, L500.52739, L500.95649 #### [facility] [address] [place] [address] ALT [Catalytic activity/Vol] 259 U/L High 13-61 [facility] Comment on above: Order Comment: Campu s: M Result Comment: RESU LTS MAY BE FALSELY DEPRESSED AFTER THE ADMINISTRATION OF SULFASALAZINE AND/OR SULFAPYRIDINE. Performed By: #### L 500.12257, L500.32628, L500.53301, L500.16787 #### [facility] [place] [address] AST [Catalytic activity/Vol] 100 U/L High 8-34 [facility] Comment on above: Order Comment: Campu s: M Result Comment: RESU LTS MAY BE FALSELY DEPRESSED AFTER THE ADMINISTRATION OF SULFASALAZINE AND/OR SULFAPYRIDINE. Performed By: #### L 500.59628, L500.54254, L500.87519, L500.58702 #### [facility] [address] [place] [address] BILI DIRECT 0.1 MG/DL Normal 0.00-0.36 [facility] Comment on above: Order Comment: Campu s: M Result Comment: NOTE NEW NORMAL RANGE DUE TO REAGENT CHANGE Performed By: #### L 500.79724, L500.72545, L500.22268, L500.02517 #### [facility] [address] [place] [address] BILI TOTAL 0.30 MG/DL Normal 0.2-1.0 [facility] Comment on above: Order Comment: Campu s: M Performed By: #### L 500.39235, L500.61231, L500.19770, L500.66663 #### [facility] [address] [place] [address] Globulin (S) [Mass/Vol] 3.0 g/dL Normal 2.2-4.2 [facility] Comment on above: Order Comment: Campu s: M Performed By: #### L 500.85956, L500.60047, L500.93106, L500.39045 #### [facility] [address] [place], [place] [address] Protein [Mass/Vol] 7.5 g/dL Normal 6.0-8.5 [facility] Comment on above: Order Comment: Campu s: M Performed By: #### L 500.21779, L500.39783, L500.41932, L500.78985 #### [facility] [address] [place] [address] UA COMPLETEon 03-19-2021 Color (U) Yellow Normal [facility] Comment on above: Order Comment: Campu s: M Performed By: #### L 600.90712 ####[facility] [id number] [place] [address] 99[address]Yy# [phone] Glucose (U) [Mass/Vol] Negative Normal NORMAL [facility] Comment on above: Order Comment: Campu s: M Performed By: #### L 600.34850 ####[facility] [id number] [place] [address]33[address]Sk# [phone] UA APPEARANCE Clear Normal CLEAR [facility] Comment on above: Order Comment: Campu s: M Performed By: #### L 600.78051 ####[address] [address]Gd# [phone] UA BILIRUBIN Negative Normal NEGATIVE [facility] Comment on above: Order Comment: Campu s: M Performed By: #### L 600.66638 ####[facility] [id number] [place] [address] 6[address]Nc# [phone] UA BLOOD Negative Normal NEGATIVE [facility] Comment on above: Order Comment: Campu s: M Performed By: #### L 600.60710 ####[facility] [id number] [place] [address] 59[address]Er# [phone] UA KETONE 5 Normal NEGATIVE [facility] Comment on above: Order Comment: Campu s: M Performed By: #### L 600.52796 ####[facility] [id number] [place] [address] 03[address]Mg# [phone] UA LK ESTERASE Negative Normal NEGATIVE [facility] Comment on above: Order Comment: Campu s: M Performed By: #### L 600.95637 ####[facility] [id number] [place] [address] 478[address]Eq# [phone] UA NITRITE Negative Normal NEGATIVE [facility] Comment on above: Order Comment: Campu s: M Performed By: #### L 600.01006 ####[address] [address]Si# [phone] UA PH 5.0 Normal 5-6 [facility] Comment on above: Order Comment: Campu s: M Performed By: #### L 600.41318 ####[facility] [id number] [place], [place] [address]Um# [phone] UA PROTEIN Negative Normal NEGATIVE [facility] Comment on above: Order Comment: Campu s: M Performed By: #### L 600.72903 ####[facility] [id number] [place] [address] 210[address]Ta# [phone] UA SPEC GRAV 1.026 Normal 1.005-1.030 [facility] Comment on above: Order Comment: Campu s: M Performed By: #### L 600.18091 ####[facility] [id number] [place] [address] 005[address]Gi# [phone] UA UROBILINOGEN Negative Normal NORMAL [facility] Comment on above: Order Comment: Campu s: M Performed By: #### L 600.59448 ####[facility] [id number] [place] [address] 48[address]Zc# [phone] BMPon 10-29-2020 Anion gap [Moles/Vol] 5 mmol/L Normal 5-16 [facility] Comment on above: Order Comment: Campu s: M Performed By: #### L 500.06182, L500.56100 #### [facility] [address] [place] [address] Calcium [Mass/Vol] 9.2 mg/dL Normal 8.5-10.5 [facility] Comment on above: Order Comment: Campu s: M Result Comment: NOTE NEW NORMAL RANGE DUE TO REAGENT CHANGE Performed By: #### L 500.98807, L500.37476 #### [facility] [address] [place] [address] Chloride [Moles/Vol] 111 mmol/L High 98-107 [facility] Comment on above: Order Comment: Campu s: M Performed By: #### L 500.17327, L5.85325 #### [facility] [address] [place] [address] CO2 [Moles/Vol] 24.0 mmol/L Normal 21-32 [facility] Comment on above: Order Comment: Asifu s: M Performed By: #### L 500.17284, L5.91354 #### [facility] [address] [place] [address] Creatinine [Mass/Vol] 0.91 mg/dL Normal 0.5-1.4 [facility] Comment on above: Order Comment: Asifu s: M Result Comment: NOTE NEW NORMAL RANGE DUE TO REAGENT CHANGE Patients receiving either N-Acetylcysteine (NAC) or Metamizole prior to venipuncture, may have falsely depressed results. Performed By: #### L 500.86748, L5.70395 #### [facility] [address] [place] [address] Glucose [Mass/Vol] 131 mg/dL High 70-100 [facility] Comment on above: Order Comment: Asifu s: M Result Comment: 70-1 00- Normal Fasting; 100-125 Impaired Fasting; greater than 126 on more than one result- Diabetes. ADA guidelines. Results may be falsely elevated after the administration of Sulfapyridine. Results may be falsely depressed after the administration of Sulfasalazine. Performed By: #### L 500.84711, L5.07595 #### [facility] [address] [place] [address] Potassium [Moles/Vol] 3.8 mmol/L Normal 3.5-5.1 [facility] Comment on above: Order Comment: Asifu s: M Result Comment: Slig ht Hemolysis, Result may be affected. Performed By: #### L 500.73505, L500.14602 #### [facility] [address] [place] [address] Sodium [Moles/Vol] 140 mmol/L Normal 136-145 [facility] Comment on above: Order Comment: Campu s: M Performed By: #### L 500.01332, L500.65280 #### [facility] [address] [place] [id number] Urea nitrogen [Mass/Vol] 16 mg/dL Normal 7-26 [facility] Comment on above: Order Comment: Campu s: M Performed By: #### L 500.90723, L500.08895 #### [facility] [address] [place] [address] Urea nitrogen/Creatinine [Mass ratio] 18 mg/mg Normal 15-24 [facility] Comment on above: Order Comment: Campu s: M Performed By: #### L 500.73661, L500.30316 #### [facility] [address] [place] [address] CBC W/DIFFon 10-29-2020 BASO ABS 0.10 K/CU MM Normal 0-0.2 [facility] Comment on above: Order Comment: Campu s: M Performed By: #### L 200.12957 ####[facility] [id number] [place] [address] 628[address]Ly# [phone] Basophils/100 WBC (Bld) 1.0 % Normal 0-2 [facility] Comment on above: Order Comment: Campu s: M Performed By: #### L 200.77799 ####[facility] [id number] [place] [address] 028[address]Yl# [phone] EOS ABS 0.20 K/CU MM Normal 0-0.5 [facility] Comment on above: Order Comment: Campu s: M Performed By: #### L 200.18752 ####[facility] [id number] [place] [address] 089[address]Hv# [phone] Eosinophils/100 WBC (Bld) 2.8 % Normal 0-5 [facility] Comment on above: Order Comment: Campu s: M Performed By: #### L 200.37631 ####[facility] [id number] [place], [place] [address]Ce# [phone] Erythrocyte distribution width (RBC) [Ratio] 12.1 % Normal 11-14.5 [facility] Comment on above: Order Comment: Campu s: M Performed By: #### L 200.65758 ####[facility] [id number] [place], [place] [address]257[address]Ph# [phone] Hematocrit (Bld) [Volume fraction] 47.2 % Normal 41.0-53.0 [facility] Comment on above: Order Comment: Campu s: M Performed By: #### L 200.89656 ####[address] [address]Ep# [phone] Hemoglobin (Bld) [Mass/Vol] 17.0 g/dL Normal 13.5-17.5 [facility] Comment on above: Order Comment: Campu s: M Performed By: #### L 200.75460 ####[facility] [id number] [place], [place] [address]Ph# [phone] IMMATR GRAN ABS 0.00 K/CU MM Normal Less than 2 [facility] Comment on above: Order Comment: Campu s: M Performed By: #### L 200.28084 ####[facility] [id number] [place], [place] [address]Ph# [phone] IMMATURE GRAN % 0.3 % Normal Less than 2 [facility] Comment on above: Order Comment: Campu s: M Performed By: #### L 200.29383 ####[facility] [id number] [place] [address] 88[address]Bt# [phone] LYMPH ABS 4.00 K/CU MM Normal 0.9-4.4 [facility] Comment on above: Order Comment: Campu s: M Performed By: #### L 200.80019 ####[facility] [id number] [place], [place] [address]Ph# [phone] Lymphocytes/100 WBC (Bld) 46.2 % High 20-40 [facility] Comment on above: Order Comment: Campu s: M Performed By: #### L 200.70614 ####[facility] [id number] [place] [address] 975[address]Zq# [phone] MCHC (RBC) [Mass/Vol] 36.0 g/dL Normal 32.0-36.0 [facility] Comment on above: Order Comment: Campu s: M Performed By: #### L 200.69700 ####[address] [address]Jb# [phone] MCV (RBC) [Entitic vol] 93.7 fL Normal 80.0-99.0 [facility] Comment on above: Order Comment: Campu s: M Performed By: #### L 200.44124 ####[place] [address]114[address]Ph# [phone] MONO ABS 0.60 K/CU MM Normal 0.1-1.1 [facility] Comment on above: Order Comment: Campu s: M Performed By: #### L 200.49075 ####[address] [address]Yv# [phone] Monocytes/100 WBC (Bld) 6.4 % Normal 2-10 [facility] Comment on above: Order Comment: Campu s: M Performed By: #### L 200.13946 ####[facility] [id number] [place] [address] 518[address]Wd# [phone] NEUTROPHIL ABS 3.80 K/CU MM Normal 2.0-8.3 [facility] Comment on above: Order Comment: Campu s: M Performed By: #### L 200.14570 ####[facility] [id number] [place] [address] 923[address]Fz# [phone] Neutrophils/100 WBC (Bld) 43.3 % Low 45-75 [facility] Comment on above: Order Comment: Campu s: M Performed By: #### L 200.79136 ####[facility] [id number] [place], [place] [address]Pf# [phone] Nucleated RBC/100 WBC (Bld) [Ratio] 0.0 % Normal Less than 1 [facility] Comment on above: Order Comment: Campu s: M Performed By: #### L 200.11361 ####[facility] [id number] [place] [address] 068[address]Wa# [phone] Platelet mean volume (Bld) [Entitic vol] 11.3 fL Normal 9.4-12.4 [facility] Comment on above: Order Comment: Campu s: M Performed By: #### L 200.52682 ####[place] [address] [place], [place] [address]Rz# [phone] PLT 191 K/CU MM Normal 150-450 [facility] Comment on above: Order Comment: Campu s: M Performed By: #### L 200.98805 ####[facility] [id number] [place] [address] 846[address]Ed# [phone] RBC 5.04 M/CU MM Normal 4.50-6.00 [facility] Comment on above: Order Comment: Campu s: M Performed By: #### L 200.94826 ####[facility] [id number] [place] [address] 968[address]Gi# [phone] WBC 8.7 K/CUMM Normal 4.5-11.0 [facility] Comment on above: Order Comment: Campu s: M Performed By: #### L 200.85593 ####[facility] [id number] [place] [address] 21028Ik# [phone] EKGon 10-29-2020 Electrocardiogram Procedure Date and Time: 10/29/20 0259 Test Reason : STAT Blood Pressure : / mmHG Vent. Rate : 100 BPM Atrial Rate : 100 BPM P-R Int : 182 ms QRS Dur : 088 ms QT Int : 358 ms P-R-T Axes : 072 056 059 degrees QTc Int : 462 ms Normal sinus rhythm Prolonged QT Abnormal ECG No previous ECGs available Confirmed by JEM MARTÍNEZ A. ([id number]) on 10/29/2020 11:19:23 AM Referred [facility] Confirmed By:Viviana MARTÍNEZ M.D.FACC Ayala DDandT: 10/29/20 0259 TDandT: [facility] PATIENT NAME: ADALID MCLEAN [facility] [address] [address] MEDICAL REC #: [id number] [place] [address] ADMIT DATE: DISCHARGE DATE: 10/29/20 ATTENDING PHY: Manda Jackson MD ELECTROCARDIOGRAM REPORT CLB cc: [facility]: [facility] [place] MEDICAL REC #: [id number] [place] [address] ADMIT DATE: DISCHARGE DATE: 10/29/20 ATTENDING PHY: Manda Jackson MD ELECTROCARDIOGRAM REPORT Normal [facility] 10-29-2020 EMERGENCY PHYSICIAN REPORT This is a preliminary report only, as the practitioner review and authentication has not occurred. Normal [facility] ER PHYSICIAN ASSESSMENT RECORDS : FlexChartData Event Time: 10/29/2020 05:45 Status: Signed [facility] Adalid Mclean [[id number]] Attending Physician / / 1980 Chart (V2b) Chart created at 10/29/2020 05:40 by Manda Jackson Chart closed at 10/29/2020 05:58 Entry in Emergency Department at 10/29/2020 02:56, departure at 10/29/2020 05:55 Patient Name: Adalid Mclean Record Number: [id number] Date: 10/29/2020 05:40 Entered Department at: 10/29/2020 02:56 Patient Seen at: 10/29/2020 03:25 Historian: Patient PCP: *None,. Chief Complaint:chest pain Temperature: 97.9 F (36.6 C). Pulse: 95. Respiratory Rate: 20. Blood-pressure: 175/115. Oxygen Saturation: 97%. History of Present Illness: Patient is a 40-year-old male presenting for evaluation of chest pain. He states this started overnight. It is substernal gradually worsening. He also feels short of breath. He denies any cough or recent illness. He denies any fall or injury. He does vape. He also has a history of asthma although he has never had pains like this before. Review of Systems. All other systems reviewed and negative.. [facility] PATIENT NAME: ADALID MCLEAN [facility] [address] MEDICAL REC #: [id number] [place] [address] EMERGENCY DEPARTMENT REPORT EMERGENCY DEPARTMENT PHYSICIAN Past History, Medications, Allergies, Social History and Family History reviewed in nurses note. Medications: Reviewed RN Note. PRIMATENE DAILY, ALBUTEROL INH NEEDED Allergies: Reviewed RN Note No Known Allergies Social History: Reviewed RN Note. Family History: Reviewed RN Note Physical Examination: General: Alert HEENT: Normal ENT inspection. Eyes: Lids Normal; . Neck: No Meningismus and Supple Respiratory: Decreased Breath Sounds, Moderate Respiratory Distress and Wheezing; Chest is mildly tender to palpation Cardio-Vascular: No rub and RRR Abdomen: Non-tender and Soft Extremity: No edema Neurological: No Gross Weakness Skin: No rash, No Petechiae, Warm and Dry Psychological: Mood/Affect Normal BMP, information as of 10/29/2020, 3:00 am 140 --------+--------+----- ---andlt; 131* Anion Gap = 5 3.8 BUN/CREA: 18; CALCIUM TOTAL: 9.2 Mg/Dl CBC W/DIFF, information as of 10/29/2020, 3:00 am 93.7 / 17.0 / 8.7 andgt;------andlt; 191 / 47.2 / N:43.3* BASO ABS: 0.10 K/Cu Mm; BASOPHIL %: 1.0 %; EOS ABS: 0.20 K/Cu Mm; EOSINOPHIL %: 2.8 %; IMMATR GRAN ABS: 0.00 K/Cu Mm; IMMATURE GRAN %: 0.3 %; LYMPH %: 46.2 %; LYMPH ABS: 4.00 K/Cu Mm; MCHC: 36.0 Gm/Dl; MONO ABS: 0.60 K/Cu Mm; MONOCYTE %: 6.4 %; MPV: 11.3; NEUTROPHIL ABS: 3.80 K/Cu Mm; NRBC: 0.0 %; RBC: 5.04 M/Cu Mm; RDW: 12.1 [facility] PATIENT NAME: ADALID MCLEAN [facility] [address] MEDICAL REC #: [id number] [place] [address] EMERGENCY DEPARTMENT REPORT EMERGENCY DEPARTMENT PHYSICIAN TROPONIN I, information as of 10/29/2020, 3:08 am TROPONIN I: 3.0 Pg/Ml Cardiogram: Interpreted by az. Rate: 100 bpm. Rate NormalRhythm Sinus RhythmAxis NormalIntervals NormalQRS NormalST/T Normal Comparison: No old Cardiogram available for comparison Imaging Study Obtained: CHEST (PORTABLE) Imaging Study Obtained: PORTABLE CHEST, Status:Signed Report Available EXAMINATION: CHEST RADIOGRAPH (PORTABLE SINGLE VIEW AP) Exam Date/Time: 10/29/2020 3:27 AM CLINICAL HISTORY: Chest pain MQ: XCPR_5 Comparison: None available RESULT: Lines, tubes, and devices: None. Lungs and pleura: Slightly diminished lung volumes. No consolidation or pleural effusion. Cardiomediastinal silhouette: Within normal limits. Other: . IMPRESSION: Slightly diminished lung volumes. No consolidation. This report was electronically signed by Leonel Avila 10/29/2020 3:45 AM [facility] PATIENT NAME: ADALID MCLEAN [address] [facility] [address] MEDICAL REC #: [id number] [place] [address] EMERGENCY DEPARTMENT REPORT EMERGENCY DEPARTMENT PHYSICIAN Reported By: LEONEL AVILA MD Medical Decision Making Laboratory evaluation is unremarkable. Chest x-ray shows diminished lung volumes. He was given 3 albuterol with 1 Atrovent. He was given Solu-Medrol. He was also given Toradol. On reevaluation he feels improved. He is able to ambulate without any difficulty breathing. His blood pressure is quite high initially however improved without any specific antihypertensives. In reviewing his chart, his last visit he was hypertensive as well. Because of this I will start him on some lisinopril. He also be continued on albuterol and prednisone at home. He is instructed to follow with dacia (more content not included)... [facility] IF AMER Greater than 60 Normal [facility] Comment on above: Order Comment: Eulalio s: M Performed By: #### L 500.09056, L500.40434 ####[facility] [id number] [place], [place] [address]Gy# [phone] IF non-AFR AMER Greater than 60 Normal [facility] Comment on above: Order Comment: Eulalio s: M Performed By: #### L 500.21243, L500.94630 ####[facility] [id number] [place], [place] [address]Mt# [phone] PORTABLE CHESTon 10-29-2020 PORTABLE CHEST EXAMINATION: CHEST RADIOGRAPH (PORTABLE SINGLE VIEW AP) Exam Date/Time: 10/29/2020 3:27 AM CLINICAL HISTORY: Chest pain MQ: XCPR_5 Comparison: None available RESULT: Lines, tubes, and devices: None. Lungs and pleura: Slightly diminished lung volumes. No consolidation or pleural effusion. Cardiomediastinal silhouette: Within normal limits. Other: . IMPRESSION: Slightly diminished lung volumes. No consolidation. This report was electronically signed by Leonel Avila 10/29/2020 3:45 AM Reported By: LEONEL AVILA MD Signed By: LEONEL AVILA MD Normal [facility] TROPONIN Ion 10-29-2020 TROPONIN I 3.0 pg/mL Normal 0-54 [facility] Comment on above: Order Comment: Eulalio s: M Result Comment: NOTE NEW NORMAL RANGE DUE TO REAGENT CHANGE This assay uses different antibodies than our current assay, and assays, even by the same application packaging specialist may recognize different regions of the antibody and cannot be used interchangeably. Expect results of this assay to run higher than the previous assay. Performed By: #### L 550.59277 #### [facility] [address] [place] [address] .Auto Diffon 10-02-2020 Basophil, Absolute 0.10 10 3/mcL Normal 0.00-0.27 [facility] ([place]) Comment on above: Performed By: #### C BC, ADIFF, ANEU, CMP, GFR, LIP #### [address] [address] Basophils/100 WBC (Bld) 1.2 % Normal 0.0-2.5 [facility] ([place]) Comment on above: Performed By: #### C BC, ADIFF, ANEU, CMP, GFR, LIP #### [address] [address] Eosinophil, Absolute 0.10 10 3/mcL Normal 0.00-0.65 [facility] ([place]) Comment on above: Performed By: #### C BC, ADIFF, ANEU, CMP, GFR, LIP #### [address] [address] Eosinophils/100 WBC (Bld) 0.9 % Normal 0.0-6.0 [facility] ([place]) Comment on above: Performed By: #### C BC, ADIFF, ANEU, CMP, GFR, LIP #### [address] [address] Lymphocyte, Absolute 3.40 10 3/mcL Normal 0.90-4.32 [facility] ([place]) Comment on above: Performed By: #### C BC, ADIFF, ANEU, CMP, GFR, LIP #### [address] [address] Lymphocytes/100 WBC (Bld) 39.0 % Normal 20.0-40.0 [facility] ([place]) Comment on above: Performed By: #### C BC, ADIFF, ANEU, CMP, GFR, LIP #### [address] [address] Monocyte, Absolute 0.50 10 3/mcL Normal 0.09-1.40 [facility] ([place]) Comment on above: Performed By: #### C BC, ADIFF, ANEU, CMP, GFR, LIP #### [address] [address] Monocytes/100 WBC (Bld) 5.9 % Normal 2.0-13.0 [facility] ([place]) Comment on above: Performed By: #### C BC, ADIFF, ANEU, CMP, GFR, LIP #### [address] [address] Neutrophils/100 WBC (Bld) 53.0 % Normal 50.0-75.0 [facility] ([place]) Comment on above: Performed By: #### C BC, ADIFF, ANEU, CMP, GFR, LIP #### [address] [address] .GFRon 10-02-2020 GFR >60 Normal [facility] ([place]) Comment on above: Result Comment: GFR Population mean for , Non- Americans Ages 20-29 = 116 mL/min/1.73 sq.m. Ages 30-39 = 107 mL/min/1.73 sq.m. Ages 40-49 = 99 mL/min/1.73 sq.m. Ages 50-59 = 93 mL/min/1.73 sq.m. Ages 60-69 = 85 mL/min/1.73 sq.m. Ages 70+ = 75 mL/min/1.73 sq.m. Chronic Kidney Disease: Less than 60 mL/min/1.73 square meters End Stage Renal Disease: Less than 15 mL/min/1.73 square meters Performed By: #### C BC, ADIFF, ANEU, CMP, GFR, LIP #### [address] [address] GFR Non- >60 Normal [facility] ([place]) Comment on above: Result Comment: GFR Population mean for , Non- Americans Ages 20-29 = 116 mL/min/1.73 sq.m. Ages 30-39 = 107 mL/min/1.73 sq.m. Ages 40-49 = 99 mL/min/1.73 sq.m. Ages 50-59 = 93 mL/min/1.73 sq.m. Ages 60-69 = 85 mL/min/1.73 sq.m. Ages 70+ = 75 mL/min/1.73 sq.m. Chronic Kidney Disease: Less than 60 mL/min/1.73 square meters End Stage Renal Disease: Less than 15 mL/min/1.73 square meters Performed By: #### C BC, ADIFF, ANEU, CMP, GFR, LIP #### [address] [address] .NEUABSon 10-02-2020 Neutrophil, Absolute 4.60 10 3/mcL Normal 2.25-8.10 [facility] ([place]) Comment on above: Performed By: #### C BC, ADIFF, ANEU, CMP, GFR, LIP #### [address] [address] CBCon 10-02-2020 Erythrocyte distribution width (RBC) [Ratio] 13.4 % Normal 11.5-15.5 [facility] ([place]) Comment on above: Performed By: #### C BC, ADIFF, ANEU, CMP, GFR, LIP #### [place] [id number] Hematocrit (Bld) [Volume fraction] 52.8 % High 40.0-52.0 [facility] ([place]) Comment on above: Performed By: #### C BC, ADIFF, ANEU, CMP, GFR, LIP #### [place] [id number] Hgb 18.5 G/dL High 13.0-17.5 [facility] ([place]) Comment on above: Performed By: #### C BC, ADIFF, ANEU, CMP, GFR, LIP #### [place] [address] MCH (RBC) [Entitic mass] 33.9 pg High 27.0-33.0 [facility] ([place]) Comment on above: Performed By: #### C BC, ADIFF, ANEU, CMP, GFR, LIP #### [place] [address] MCHC 35.0 G/dL Normal 32.0-36.0 [facility] ([place]) Comment on above: Performed By: #### C BC, ADIFF, ANEU, CMP, GFR, LIP #### [place] [address] MCV (RBC) [Entitic vol] 96.8 fL Normal 81.0-100.0 [facility] ([place]) Comment on above: Performed By: #### C BC, ADIFF, ANEU, CMP, GFR, LIP #### [place] [address] Platelet 207 10 3/mcL Normal 150-450 [facility] ([place]) Comment on above: Performed By: #### C BC, ADIFF, ANEU, CMP, GFR, LIP #### [place] [address] Platelet mean volume (Bld) [Entitic vol] 9.6 fL Normal 6.4-10.5 [facility] ([place]) Comment on above: Performed By: #### C BC, ADIFF, ANEU, CMP, GFR, LIP #### [place] [address] RBC 5.46 10 6/mcL Normal 4.50-6.00 [facility] ([place]) Comment on above: Performed By: #### C BC, ADIFF, ANEU, CMP, GFR, LIP #### [address] [address] WBC 8.70 10 3/mcL Normal 4.50-10.80 [facility] ([place]) Comment on above: Performed By: #### C BC, ADIFF, ANEU, CMP, GFR, LIP #### [address] [address] CMPon 10-02-2020 Albumin Level 4.1 G/dL Normal 3.2-4.8 [facility] ([place]) Comment on above: Performed By: #### C BC, ADIFF, ANEU, CMP, GFR, LIP #### [address] [address] Albumin/Globulin [Mass ratio] 1.1 {ratio} Normal 0.9-1.6 [facility] ([place]) Comment on above: Performed By: #### C BC, ADIFF, ANEU, CMP, GFR, LIP #### [place] [address] ALP [Catalytic activity/Vol] 65 U/L Normal 38-126 [facility] ([place]) Comment on above: Performed By: #### C BC, ADIFF, ANEU, CMP, GFR, LIP #### [address] [address] ALT [Catalytic activity/Vol] 89 U/L High 12-55 [facility] ([place]) Comment on above: Performed By: #### C BC, ADIFF, ANEU, CMP, GFR, LIP #### [address] [address] AST [Catalytic activity/Vol] 31 U/L Normal 8-34 [facility] ([place]) Comment on above: Performed By: #### C BC, ADIFF, ANEU, CMP, GFR, LIP #### [place] [phone] Bili Total 0.4 mg/dL Normal 0.2-1.2 [facility] ([place]) Comment on above: Result Comment: Use of this assay is not recommended for patients undergoing treatment with eltrombopag due to the potential for falsely elevated results. Performed By: #### C BC, ADIFF, ANEU, CMP, GFR, LIP #### [place] [phone] BUN/Creatinine Ratio 16.0 ratio Normal 10.0-22.0 [facility] ([place]) Comment on above: Performed By: #### C BC, ADIFF, ANEU, CMP, GFR, LIP #### [place] [id number] Calcium [Mass/Vol] 9.1 mg/dL Normal 8.4-10.1 [facility] ([place]) Comment on above: Result Comment: No te - New Reference Range in effect 19 Performed By: #### C BC, ADIFF, ANEU, CMP, GFR, LIP #### [place] [phone] Chloride [Moles/Vol] 109 mmol/L Normal 98-110 [facility] ([place]) Comment on above: Performed By: #### C BC, ADIFF, ANEU, CMP, GFR, LIP #### [place] [id number] CO2 [Moles/Vol] 25 mmol/L Normal 22-32 [facility] ([place]) Comment on above: Performed By: #### C BC, ADIFF, ANEU, CMP, GFR, LIP #### [place] [phone] Creatinine [Mass/Vol] 0.94 mg/dL Normal 0.60-1.40 [facility] ([place]) Comment on above: Performed By: #### C BC, ADIFF, ANEU, CMP, GFR, LIP #### [place] [id number] Electrolyte Balance 5.0 mEq/L Normal 4.0-15.0 [facility] ([place]) Comment on above: Performed By: #### C BC, ADIFF, ANEU, CMP, GFR, LIP #### [address] [address] Globulin 3.7 G/dL Normal 1.5-3.8 [facility] ([place]) Comment on above: Performed By: #### C BC, ADIFF, ANEU, CMP, GFR, LIP #### [address] [address] Glucose [Mass/Vol] 97 mg/dL Normal 70-110 [facility] ([place]) Comment on above: Performed By: #### C BC, ADIFF, ANEU, CMP, GFR, LIP #### [address] [address] Potassium [Moles/Vol] 3.9 mmol/L Normal 3.5-5.0 [facility] ([place]) Comment on above: Performed By: #### C BC, ADIFF, ANEU, CMP, GFR, LIP #### [address] [address] Sodium [Moles/Vol] 139 mmol/L Normal 136-145 [facility] ([place]) Comment on above: Performed By: #### C BC, ADIFF, ANEU, CMP, GFR, LIP #### [address] [address] Total Protein 7.8 G/dL Normal 6.0-8.5 [facility] ([place]) Comment on above: Result Comment: No te - New Reference Range in effect 19 Performed By: #### C BC, ADIFF, ANEU, CMP, GFR, LIP #### [address] [address] Urea nitrogen [Mass/Vol] 15.0 mg/dL Normal 8.0-22.0 [facility] ([place]) Comment on above: Performed By: #### C BC, ADIFF, ANEU, CMP, GFR, LIP #### [address] [address] [address] ABD/PELVIS W/ IV CONTRAST ONLYon 10-02-2020 CT ABD/PELVIS W/ IV CONTRAST ONLY ORIGINAL CT ABD/PELVIS W/ IV CONTRAST ONLY CLINICAL STATEMENT: Epigastric pain, nausea, vomiting COMPARISON: None TECHNIQUE: Axial images were obtained from the lung bases through the pubic symphysis after the administration of IV contrast. Coronal and sagittal reformatted images were generated from the axial dataset. This exam was performed according to our departmental dose optimization program, and includes the following measures where applicable: automated exposure control, adjustment of the mAs and/or kVp according to patient size and/or exam, and an iterative reconstruction algorithm. FINDINGS: The lung bases are clear. The heart is normal in size. No pericardial effusion. Hepatic steatosis with fatty sparing adjacent to the gallbladder fossa. No focal hepatic mass. The gallbladder, spleen, adrenal glands, and pancreas are unremarkable. It is noted that the patient reported previous cholecystectomy. The kidneys enhance symmetrically. No renal calculi or hydronephrosis. The ureters are normal in course and caliber. Unremarkable bladder and prostate. Unremarkable abdominal aorta and IVC. No venous thrombosis. The visualized esophagus, stomach, and duodenum are unremarkable. The small bowel is normal in course and caliber. Prominent colonic wall likely due to underdistention. The appendix is not visualized, however no pericecal inflammation. No free air or fluid. Nonenlarged ancelmo hepatis lymph nodes. No acute or suspicious abnormality. IMPRESSION: No acute process within the abdomen or pelvis. Hepatic steatosis. I have personally reviewed the images of this examination and agree with the resident's findings and interpretation. Interpreted By: Tomás Townsend MD Preliminary Report By: Kristan Sands DO Electronically Signed By: Tomás Townsend MD Dictated Date: 10/02/2020 8:16:07 PM Prelim Date: 10/02/2020 8:23:54 PM Sign Date: 10/02/2020 8:42:53 PM Ordering Provider:Adelso Hope Normal [facility] ([place]) LIPon 10-02-2020 Lipase Level 50 U/L Normal 12-53 [facility]) Comment on above: Result Comment: No te - New Reference Range in effect 19 Performed By: #### C BC, ADIFF, ANEU, CMP, GFR, LIP #### [address] [address] US ABDOMEN LIMITEDon 021 US ABDOMEN LIMITED ORIGINAL US ABDOMEN LIMITED: Ultrasound of the RIGHT upper quadrant CLINICAL STATEMENT: abdominal pain. Nausea vomiting COMPARISON: None FINDINGS: The visualized pancreas is unremarkable. The liver is diffusely hyperechoic with coarsened echotexture and decreased through transmission. Hypoechoic avascular lesions measuring 2.7 x 2.3 x 2.5 cm in the RIGHT lobe and 3.5 x 3.7 x 3 cm in the LEFT lobe of the liver. There is no intra or extrahepatic bile duct dilatation. The common duct is 4.7 mm at the ancelmo hepatis. No ascites is seen in the hepatorenal fossa. The gallbladder is normally distended without calculus, wall thickening or tenderness. RIGHT kidney is normal. IMPRESSION: Hepatic steatosis or other hepatocellular disease. Hypoechoic avascular lesions in the RIGHT and LEFT lobes of the liver are incompletely characterized. Hepatic MRI or multiphase hepatic CT is recommended. I have personally reviewed the images of this examination and agree with the resident's findings and interpretation. Interpreted By: Tomás oTwnsend MD Preliminary Report By: Suzie Shankar DO Electronically Signed By: Tomás Townsend MD Dictated Date: 10/02/2020 6:44:38 PM Prelim Date: 10/02/2020 6:51:45 PM Sign Date: 10/02/2020 7:14:57 PM Ordering Provider:Leann Fairchild [facility] ([place]) [facility] 08-30-2020 EMERGENCY PHYSICIAN REPORT This is a preliminary report only, as the practitioner review and authentication has not occurred. [facility] ER PHYSICIAN ASSESSMENT RECORDS : FlexChartData Event Time: 08/30/2020 13:20 RAYKA Status: Signed [facility] Adalid Mclean [[id number]] Mid-Level Chart (V2b) 40 / M / 1980 Chart created at 08/30/2020 13:12 by Denver Osman Chart closed at 08/30/2020 13:17 Entry in Emergency Department at 08/30/2020 10:39, departure at 08/30/2020 14:18 Patient Name: Adalid Mclean Record Number: [id number] Date: 08/30/2020 13:12 Entered Department at: 08/30/2020 10:39 Patient Seen at: 08/30/2020 12:55 PCP: *None,. Chief Complaint:C/O RIGHT HIP BURNING STARTING X 2 MONTHS. PATIENT STATES NOW HE CANNOT HANDLE PAIN. DENIES INJURY. History of Present Illness: Patient denies any known medical history presents with 2 months of worse right hip pain and burning worse with movement relieved with remaining still. Does not significantly radiate to his back. Denies IV drug use. Denies erythema or warmth to the hip. Denies fever chills. Denies PE/DVT risk factors. Denies calf pain. Denies trauma. Review of Systems. All other systems reviewed and negative.. Past History, Medications, Allergies, Social History and Family History reviewed in nurses note. Medications: Reviewed RN Note. [facility] PATIENT NAME: ADALID MCLEAN [facility] [address] MEDICAL REC #: [id number] [place] [address] EMERGENCY DEPARTMENT REPORT EMERGENCY DEPARTMENT PHYSICIAN Allergies: Reviewed RN Note Social History: Reviewed RN Note. Family History: Reviewed RN Note Physical Examination: General: Alert and Well Developed; Nontoxic-appearing no acute distress. HEENT: Normal ENT inspection. Eyes: Lids Normal; . Oropharynx / Throat: Normal Pharynx. Neck: No Lymphadenopathy, No Meningismus and Supple Respiratory: No Resp Distress and Normal Breath Sounds Cardio-Vascular: No murmur, No rub and RRR Abdomen: Non-tender and Soft Back: No CVA tenderness, No Midline Tenderness and Non-tender Extremity: No edema; Inspection of the right hip demonstrates no external signs of injury no erythema warmth. He has focal tenderness to the lateral right hip. Flexion and extension are intact however decreased secondary to pain. Distal pulses are intact. Neurological: Alert, Oriented X3 and No Gross Weakness Skin: No rash, No Petechiae, Warm and Dry Psychological: Mood/Affect Normal and Normal Memory/Judgment Imaging Study Obtained: HIP (COMPLETE) RT Imaging Study Obtained: HIP COMP 2-3 VIEWS RIGHT, Status:Signed Report Available HIP COMP 2-3 VIEWS RIGHT Ordering Physician: Denver Osman 08/30/2020 12:08 PM RIGHT HIP Clinical Statement: Right hip pain FINDINGS: Two views of the right hip were obtained. There were no prior studies available for comparison. [facility] PATIENT NAME: ADALID MCLEAN [address] [facility] [address] MEDICAL REC #: [id number] [place] [address] EMERGENCY DEPARTMENT REPORT EMERGENCY DEPARTMENT PHYSICIAN The femoral head is in good position. No fractures are seen. There are mild degenerative changes. IMPRESSION: Mild degenerative change. No acute abnormalities. ---- Electronic Signature on File ---- Signed By: Adelso Cohn MD FACR [email or web address] Dictated: 08/30/2020 12:29 PM Signed: 08/30/2020 12:30 PM Reported By: ADELSO COHN M.D. Radiology: Interpreted by Radiologist. Medical Decision Making Vitals are noted. Patient is afebrile. Blood pressure is 174/104 this could be pain related. Patient was medicated with 1 Lorimor and muscle relaxer. Heart rate is 75. Respirations are 18. He is 99% on room air. Plain films demonstrated mild degenerative changes no acute abnormalities. Patients exam demonstrates focal tenderness to the right hip. There is no signs of septic arthritis at this time. I do not feel this is a deep vein thrombosis. Distal pulses are intact there are no signs of vascular emergency. He has no significant back pain at this time. Given the above I feel this is musculoskeletal pain that is focal to the hip. He will be discharged with Medrol Dosepak and muscle relaxers. He is instructed to follow-up with primary care referral concerning elevated blood pressure. He will be referred to the [facility] musculoskeletal clinic. Clinical Impression: [facility] PATIENT NAME: ADALID MCLEAN [facility] [address] MEDICAL REC #: [id number] [place] [address] EMERGENCY DEPARTMENT REPORT EMERGENCY DEPARTMENT PHYSICIAN 1. Subacute right hip pain 2. Elevated blood pressure Disposition: Discharged . Condition: Good Electronically sign (more content not included)... [facility] HIP COMP 2-3 VIEWS RIGHTon 0 08-30-2020 HIP COMP 2-3 VIEWS RIGHT HIP COMP 2-3 EWS RIGHT Ordering Physician: Denver Osman 08/30/2020 12:08 PM RIGHT HIP Clinical Statement: Right hip pain FINDINGS: Two views of the right hip were obtained. There were no prior studies available for comparison. The femoral head is in good position. No fractures are seen. There are mild degenerative changes. IMPRESSION: Mild degenerative change. No acute abnormalities. ---- Electronic Signature on File ---- Signed By: Adelso Cohn MD FACR [email or web address] Dictated: 08/30/2020 12:29 PM Signed: 08/30/2020 12:30 PM Reported By: ADELSO COHN M.D. Signed By: ADELSO COHN M.D. [facility] Vital Signs Date Time Vital Sign Value Performing Clinician Facility 08-28-2023 18:05-0400 Body height 175.3 cm Ngoc Villalobos DO Work Phone: [facility] 08-28-2023 18:04-040 Body temperature 98.01 [degF] Ngoc Villalobos DO Work Phone: [facility] 08-28-2023 18:04-0400 Diastolic blood pressure 96 mm[Hg] Ngoc Villalobos DO Work Phone: [facility] 08-28-2023 18:04-0400 Heart rate 100 /min Ngoc Villalobos DO Work Phone: [facility] 08-28-2023 18:04-0400 Respiratory rate 18 /min Ngoc Villalobos DO Work Phone: [facility] 08-28-2023 18:04-0400 SaO2% (BldA) [Mass fraction] 99 % Ngoc Villalobos DO Work Phone: [facility] 08-28-2023 18:04-0400 Systolic blood pressure 126 mm[Hg] Ngoc Villalobos DO Work Phone: [facility] 07-26-2023 13:27-0400 Body temperature 98.4 [degF] [facility] 07-26-2023 13:27-0400 Diastolic blood pressure 85 mm[Hg] [facility] 07-26-2023 13:27-0400 Heart rate 74 /min [facility] 07-26-2023 13:27-0400 Respiratory rate 16 /min [facility] 07-26-2023 13:27-0400 SaO2% (BldA) [Mass fraction] 100 % [facility] 07-26-2023 13:27-0400 Systolic blood pressure 121 mm[Hg] [facility] 07-26-2023 11:27-0400 Body height 175.26 cm [facility] 07-26-2023 11:27-0400 Body mass index (BMI) [Ratio] 27.5 kg/m2 [facility] 07-26-2023 11:27-0400 Body weight 84.62 kg [facility] 04-16-2023 11:05-0500 SaO2% (BldA) [Mass fraction] 95 % [facility] 04-16-2023 09:36-0500 Heart rate 96 /min [facility] 04-16-2023 09:36-0500 Respiratory rate 18 /min [facility] 04-16-2023 08:27-0500 Diastolic blood pressure 98 mm[Hg] [facility] 04-16-2023 08:27-0500 Systolic blood pressure 150 mm[Hg] [facility] 04-16-2023 06:51-0500 Body height 175.26 cm [facility] 04-16-2023 06:51-0500 Body mass index (BMI) [Ratio] 27.3 kg/m2 [facility] 04-16-2023 06:51-0500 Body temperature 97.2 [degF] [facility] 04-16-2023 06:51-0500 Body weight 84.1 kg [facility] 04-10-2023 10:56-0500 Respiratory rate 18 /min [facility] 04-10-2023 08:58-0500 Body mass index (BMI) [Ratio] 27.2 kg/m2 [facility] 04-10-2023 08:58-0500 Body temperature 98.6 [degF] [facility] 04-10-2023 08:58-0500 Body weight 83.7 kg [facility] 04-10-2023 08:58-0500 Diastolic blood pressure 82 mm[Hg] [facility] 04-10-2023 08:58-0500 Heart rate 95 /min [facility] 04-10-2023 08:58-0500 SaO2% (BldA) [Mass fraction] 99 % [facility] 04-10-2023 08:58-0500 Systolic blood pressure 128 mm[Hg] [facility] 03-03-2022 19:50-0500 Diastolic blood pressure 119 mm[Hg] Dr. Ena Holloway Work Phone: [facility] Work Phone: 03-03-2022 19:50-0500 Heart rate 101 /min Dr. Ena Holloway Work Phone: [facility] Work Phone: 03-03-2022 19:50-0500 Systolic blood pressure 154 mm[Hg] Dr. Ena Holloway Work Phone: [facility] Work Phone: 03-03-2022 19:26-0500 Body height 175.[address] Ena Holloway Work Phone: [facility] Work Phone: 03-03-2022 19:26-0500 Body mass index (BMI) [Ratio] 28.8 kg/m2 Dr. Ena Holloway Work Phone: [facility] Work Phone: 03-03-2022 19:26-0500 Body temperature 97.9 [degF] Dr. Ena Holloway Work Phone: [facility] Work Phone: 03-03-2022 19:26-0500 Body weight 88.[address] Ena Holloway Work Phone: [facility] Work Phone: 03-03-2022 19:26-0500 Respiratory rate 18 /min Dr. Ena Holloway Work Phone: [facility] Work Phone: 03-03-2022 19:26-0500 SaO2% (BldA) [Mass fraction] 96 % Dr. Ena Holloway Work Phone: [facility] Work Phone: 02-28-2022 08:16-0500 Body height 177.[address] Ena Holloway Work Phone: [facility] Work Phone: 02-28-2022 08:16-0500 Body mass index (BMI) [Ratio] 30.1 kg/m2 Dr. Ena Holloway Work Phone: [facility] Work Phone: 02-28-2022 08:16-0500 Body temperature 97.5 [degF] Dr. Ena Holloway Work Phone: [facility] Work Phone: 02-28-2022 08:16-0500 Body weight 95.[address] Ena Holloway Work Phone: [facility] Work Phone: 02-28-2022 08:16-0500 Diastolic blood pressure 106 mm[Hg] Dr. Ena Holloway Work Phone: [facility] Work Phone: 02-28-2022 08:16-0500 Heart rate 109 /min Dr. Ena Holloway Work Phone: [facility] Work Phone: 02-28-2022 08:16-0500 Respiratory rate 18 /min Dr. Ena Holloway Work Phone: [facility] Work Phone: 02-28-2022 08:16-0500 SaO2% (BldA) [Mass fraction] 99 % Dr. Ena Holloway Work Phone: [facility] Work Phone: 02-28-2022 08:16-0500 Systolic blood pressure 147 mm[Hg] Dr. Ena Holloway Work Phone: [facility] Work Phone: 01-07-2022 09:10-0400 Body temperature 98.8 [degF] Dr. Ena Holloway Work Phone: [facility] Work Phone: 01-07-2022 09:10-0400 Diastolic blood pressure 97 mm[Hg] Dr. Ena Holloway Work Phone: [facility] Work Phone: 01-07-2022 09:10-0400 Heart rate 63 /min Dr. Ena Holloway Work Phone: [facility] Work Phone: 01-07-2022 09:10-0400 Respiratory rate 14 /min Dr. Ena Holloway Work Phone: [facility] Work Phone: 01-07-2022 09:10-0400 SaO2% (BldA) [Mass fraction] 98 % Dr. Ena Holloway Work Phone: [facility] Work Phone: 01-07-2022 09:10-0400 Systolic blood pressure 133 mm[Hg] Dr. Ena Holloway Work Phone: [facility] Work Phone: 01-06-2022 10:31-0400 Body height 177.[address] Ena Holloway Work Phone: [facility] Work Phone: 01-06-2022 10:31-0400 Body weight 92.[address] Ena Holloway Work Phone: [facility] Work Phone: 01-06-2022 09:20-0400 Body mass index (BMI) [Ratio] 29.2 kg/m2 Dr. Ena Holloway Work Phone: [facility] Work Phone: 01-06-2022 03:39-0400 Body temperature 98 [degF] Dr. Ena Holloway Work Phone: [facility] Work Phone: 01-06-2022 03:39-0400 Diastolic blood pressure 99 mm[Hg] Dr. Ena Holloway Work Phone: [facility] Work Phone: 01-06-2022 03:39-0400 Heart rate 67 /min Dr. Ena Holloway Work Phone: [facility] Work Phone: 01-06-2022 03:39-0400 Respiratory rate 16 /min Dr. Ena Holloway Work Phone: [facility] Work Phone: 01-06-2022 03:39-0400 SaO2% (BldA) [Mass fraction] 98 % Dr. Ena Holloway Work Phone: [facility] Work Phone: 01-06-2022 03:39-0400 Systolic blood pressure 132 mm[Hg] Dr. Ena Holloway Work Phone: [facility] Work Phone: 01-06-2022 01:15-0400 Body height 177.[address] Ena Holloway Work Phone: [facility] Work Phone: 01-06-2022 01:15-0400 Body mass index (BMI) [Ratio] 41.5 kg/m2 Dr. Ena Holloway Work Phone: [facility] Work Phone: 01-06-2022 01:15-0400 Body weight 131.[address] Ena Holloway Work Phone: [facility] Work Phone: 01-03-2022 16:48-0400 SaO2% (BldA) [Mass fraction] 94 % Dr. Ena Holloway Work Phone: [facility] Work Phone: 01-03-2022 12:53-0400 Body temperature 98.1 [degF] Dr. Ena Holloway Work Phone: [facility] Work Phone: 01-03-2022 12:53-0400 Diastolic blood pressure 97 mm[Hg] Dr. Ena Holloway Work Phone: [facility] Work Phone: 01-03-2022 12:53-0400 Heart rate 55 /min Dr. Ena Holloway Work Phone: [facility] Work Phone: 01-03-2022 12:53-0400 Respiratory rate 18 /min Dr. Ena Holloway Work Phone: [facility] Work Phone: 01-03-2022 12:53-0400 Systolic blood pressure 128 mm[Hg] Dr. Ena Holloway Work Phone: [facility] Work Phone: 01-03-2022 09:29-0400 Body height 177.[address] Ena Holloway Work Phone: [facility] Work Phone: 01-03-2022 09:29-0400 Body mass index (BMI) [Ratio] 29.4 kg/m2 Dr. Ena Holloway Work Phone: [facility] Work Phone: 01-03-2022 09:29-0400 Body weight 92.[address] Ena Holloway Work Phone: [facility] Work Phone: 12-31-2021 21:21-0400 Body temperature 98 [degF] [facility] Work Phone: 12-31-2021 21:21-0400 Diastolic blood pressure 104 mm[Hg] [facility] Work Phone: 12-31-2021 21:21-0400 Heart rate 84 /min [facility] Work Phone: 12-31-2021 21:21-0400 Respiratory rate 16 /min [facility] Work Phone: 12-31-2021 21:21-0400 SaO2% (BldA) [Mass fraction] 95 % [facility] Work Phone: 12-31-2021 21:21-0400 Systolic blood pressure 141 mm[Hg] [facility] Work Phone: 12-31-2021 15:38-0400 Body height 177.8 cm [facility] Work Phone: 12-31-2021 15:38-0400 Body mass index (BMI) [Ratio] 30.3 kg/m2 [facility] Work Phone: 12-31-2021 15:38-0400 Body weight 95.8 kg [facility] Work Phone: 12-02-2021 10:41-0400 Diastolic blood pressure 105 mm[Hg] [facility] Work Phone: 12-02-2021 10:41-0400 Heart rate 98 /min [facility] Work Phone: 12-02-2021 10:41-0400 Respiratory rate 17 /min [facility] Work Phone: 12-02-2021 10:41-0400 SaO2% (BldA) [Mass fraction] 97 % [facility] Work Phone: 12-02-2021 10:41-0400 Systolic blood pressure 134 mm[Hg] [facility] Work Phone: 12-02-2021 09:51-0400 Body height 175.26 cm [facility] Work Phone: 12-02-2021 09:51-0400 Body mass index (BMI) [Ratio] 30.3 kg/m2 [facility] Work Phone: 12-02-2021 09:51-0400 Body temperature 97.8 [degF] [facility] Work Phone: 12-02-2021 09:51-0400 Body weight 93.2 kg [facility] Work Phone: 11-15-2021 17:56-0400 Body height 175.26 cm [facility] Work Phone: 11-15-2021 17:56-0400 Body mass index (BMI) [Ratio] 31.6 kg/m2 [facility] Work Phone: 11-15-2021 17:56-0400 Body temperature 96.3 [degF] [facility] Work Phone: 11-15-2021 17:56-0400 Body weight 97.1 kg [facility] Work Phone: 11-15-2021 17:56-0400 Diastolic blood pressure 131 mm[Hg] [facility] Work Phone: 11-15-2021 17:56-0400 Heart rate 95 /min [facility] Work Phone: 11-15-2021 17:56-0400 Respiratory rate 16 /min [facility] Work Phone: 11-15-2021 17:56-0400 SaO2% (BldA) [Mass fraction] 97 % [facility] Work Phone: 11-15-2021 17:56-0400 Systolic blood pressure 169 mm[Hg] [facility] Work Phone: 09-20-2021 07:50-0400 Diastolic blood pressure 72 mm[Hg] [facility] Work Phone: 09-20-2021 07:50-0400 Heart rate 71 /min [facility] Work Phone: 09-20-2021 07:50-0400 Respiratory rate 16 /min [facility] Work Phone: 09-20-2021 07:50-0400 SaO2% (BldA) [Mass fraction] 98 % [facility] Work Phone: 09-20-2021 07:50-0400 Systolic blood pressure 134 mm[Hg] [facility] Work Phone: 09-20-2021 06:16-0400 Body height 175.26 cm [facility] Work Phone: 09-20-2021 06:16-0400 Body mass index (BMI) [Ratio] 32.1 kg/m2 [facility] Work Phone: 09-20-2021 06:16-0400 Body temperature 97.9 [degF] [facility] Work Phone: 09-20-2021 06:16-0400 Body weight 98.7 kg [facility] Work Phone: Encounters Encounter Date Encounter Type Care Provider Facility Start: 05-02-2024 End: 05-02-2024 Emergency department patient visit Rhett Tyler Facility:[facility] Start: 08-28-2023 End: 08-28-2023 Emergency department patient visit Ngoc Villalobos DO Work Phone: [facility] Start: 07-26-2023 End: 07-26-2023 Emergency department patient visit [facility] Work Phone: Start: 04-16-2023 End: 04-16-2023 Emergency department patient visit [facility] Work Phone: Start: 04-10-2023 End: 04-10-2023 Emergency department patient visit [facility] Work Phone: Start: 03-03-2022 End: 03-03-2022 Emergency department patient visit Dr. Ena Holloway Work Phone: [facility] Start: 02-28-2022 End: 02-28-2022 Emergency department patient visit Dr. Ena Holloway Work Phone: [facility] Start: 01-07-2022 Non-patient / Non-visit Dr. Nat Holloway Work Phone: [facility] Start: 01-06-2022 Non-patient / Non-visit Dr. Nat Holloway Work Phone: [facility] Start: 01-06-2022 End: 01-07-2022 Evaluation and management of inpatient [facility] Start: 01-03-2022 Non-patient / Non-visit Dr. Nat Holloway Work Phone: [facility] Start: 01-03-2022 Non-patient / Non-visit Dr. Nat Holloway Work Phone: [facility] Start: 01-02-2022 Non-patient / Non-visit Dr. Nat Holloway Work Phone: [facility] Start: 01-01-2022 Non-patient / Non-visit Dr. Nat Holloway Work Phone: [facility] Start: 01-01-2022 Non-patient / Non-visit Dr. Nat Holloway Work Phone: [facility] Start: 01-01-2022 End: 01-03-2022 Non-patient / Non-visit Dr. Ena Holloway Work Phone: [facility] Start: 12-31-2021 End: 01-03-2022 Evaluation and management of inpatient [facility] Start: 12-02-2021 End: 12-02-2021 Emergency department patient visit [facility] Start: 11-15-2021 End: 11-15-2021 Emergency department patient visit [facility] Start: 09-20-2021 End: 09-20-2021 Emergency department patient visit [facility] Procedures Date Procedure Procedure Detail Performing Clinician Start: 07-26-2023 Plain X-ray of shoulder Start: 04-16-2023 Plain chest X-ray Start: 04-10-2023 SARS-CoV-2, Influenza & RSV (PCR) Start: 01-06-[address] Ena li Work Phone: Start: 01-06-2022 Computed tomography of abdomen and pelvis with intravenous contrast Dr. Ena Holloway Work Phone: Start: 01-03-[address] Ena Holloway Work Phone: Start: 12-31-2021 Computed tomography of abdomen and pelvis with contrast Start: 12-02-2021 CT angiography of chest with contrast Start: 09-20-2021 Radiography of ankle Start: 09-20-2021 X-ray of both feet Start: 10-29-2020 Ecg routine ecg w/least 12 lds i&r only Plan of Treatment Date Care Activity Detail Author Start: 12-06-2023 Influenza vaccination INFLUENZA VACCINE (Season Ended) [facility] Start: 07-26-2023 [facility] Start: 04-16-2023 [facility] Start: 04-10-2023 [facility] Start: 12-05-2022 COVID-19 VACCINE ( season) COVID-19 VACCINE ( season) [facility] Start: 2022 Blood chemistry [facility] Work Phone: Start: 01-08-2022 Blood chemistry [facility] Work Phone: Start: 01-07-2022 Patient discharge [facility] Work Phone: Start: 01-06-2022 End: 01-07-2022 [facility] Work Phone: Start: 01-06-2022 Egd transoral biopsy single/multiple EGD BIOPSY SINGLE/MULTIPLE [facility] Work Phone: Start: 01-06-2022 Egd transoral control bleeding any method EGD CONTROL BLEEDING ANY [facility] Work Phone: Start: 01-06-2022 Catheterization of vein [facility] Work Phone: Start: 01-06-2022 Application of intermittent pneumatic compression device [facility] Work Phone: Start: 01-06-2022 Following clinical pathway protocol [facility] Work Phone: Start: 01-06-2022 Assessment of risk of venous thromboembolism [facility] Work Phone: Start: 01-06-2022 Insertion of catheter into peripheral vein [facility] Work Phone: Start: 01-06-2022 Oxygen therapy [facility] Work Phone: Start: 01-06-2022 Providing care according to standard [facility] Work Phone: Start: 01-06-2022 Referral to gastroenterology service [facility] Work Phone: Start: 01-06-2022 End: 01-06-2022 Verification routine [facility] Work Phone: Start: 01-06-2022 Admission procedure [facility] Work Phone: Start: 01-03-2022 Patient discharge [facility] Work Phone: Start: 01-01-2022 End: 01-02-2022 [facility] Work Phone: Start: 01-01-2022 Following clinical pathway protocol [facility] Work Phone: Start: 01-01-2022 End: 01-01-2022 Catheterization of vein [facility] Work Phone: Start: 01-01-2022 End: 01-01-2022 Notification of physician [facility] Work Phone: Start: 01-01-2022 Oxygen therapy [facility] Work Phone: Start: 12-31-2021 Ambulation without limitation [facility] Work Phone: Start: 12-31-2021 Assessment of risk of venous thromboembolism [facility] Work Phone: Start: 12-31-2021 Insertion of catheter into peripheral vein [facility] Work Phone: Start: 12-31-2021 Providing care according to standard [facility] Work Phone: Start: 12-31-2021 Referral to gastroenterology service [facility] Work Phone: Start: 12-31-2021 [facility] Work Phone: Start: 12-31-2021 Following clinical pathway protocol [facility] Work Phone: Start: 12-31-2021 Verification routine [facility] Work Phone: Start: 12-31-2021 Admission procedure [facility] Work Phone: Start: 12-02-2021 [facility] Work Phone: Start: 2019 Lipid panel LIPID SCREENING [facility] Start: 1998 Hepatitis B vaccination HEP B VACCINE (1 of 3 - 19+ 3-dose series) [facility] Start: 1998 Third diphtheria, tetanus and acellular pertussis (DTaP) vaccination TDAP (ADULT) [facility] Start: 1994 HIV screening HIV SCREENING DISCUSSION [facility] Start: 1979 Hepatitis C screening HEPATITIS C VIRUS SCREENING [facility] Start: 1979 Tetanus vaccination TETANUS [facility] Anion gap measurement [facility] Work Phone: BUN/Creatinine ratio [facility] Work Phone: Calcium [Mass/volume ] in Serum or Plasma [facility] Work Phone: Carbon dioxide, tota l [Moles/volume] in Serum or Plasma [facility] Work Phone: Chloride [Moles/volu me] in Serum or Plasma [facility] Work Phone: Creatinine [Moles/vo lume] in Serum or Plasma [facility] Work Phone: Glucose [Mass/volume ] in Serum or Plasma [facility] Work Phone: Hematocrit [Volume F raction] of Blood [facility] Work Phone: Hemoglobin [Mass/vol ume] in Blood [facility] Work Phone: Leukocytes [#/volume ] in Blood [facility] Work Phone: Mean corpuscular hem oglobin concentration determination [facility] Work Phone: Mean corpuscular hem oglobin determination [facility] Work Phone: Measurement of renal function [facility] Work Phone: Neutrophil count [facility] Work Phone: Neutrophil percent differential count [facility] Work Phone: Patient Education [facility] Work Phone: Patient referral [facility] Work Phone: Platelets [#/volume] in Blood [facility] Work Phone: Potassium [Moles/vol ume] in Serum or Plasma [facility] Work Phone: Red blood cell count [facility] Work Phone: Red cell distributio n width determination [facility] Work Phone: Sodium [Moles/volume ] in Serum or Plasma [facility] Work Phone: Urea nitrogen [Mass/ volume] in Serum or Plasma [facility] Work Phone: Immunizations Immunization Date Immunization Notes Care Provider Prakash [facility] 02-28-2022 tetanus toxoid, redu jd diphtheria toxoid, and acellular pertussis vaccine, adsorbed Dr. Ena Holloway Work Phone: [facility] Payers Date Payer Category Payer Unknown [id number] 2023 Self-pay [id number] 2012 Unknown [id number] Medicaid [id number] Private Health Insurance [id number] Unknown [id number] Unknown [id number] Social History Date Type Detail Facility Start: 09-20-2021 End: 07-26-2023 Tobacco smoking status NHIS Unknown if ever smoked [facility] Start: 06-30-2018 None [facility] Start: 12-29-2018 With Family [facility] Start: 04-22-2020 Cigarettes [facility] Start: 1980 Sex Assigned At Male W [facility] Start: 08-28-2023 Tobacco smoking stat us TXIS Ex-smoker [facility] History of tobacco use Current smoker [facility] History of tobacco use Cigarette Smoker [facility] Start: 08-28-2023 Tobacco use and exposure Smokeless tobacco non-user [facility] Start: 08-28-2023 Alcoholic beverage intake Ex-drinker (finding) [facility] Start: 08-28-2023 History of Social function [facility] Start: 08-28-2023 Tobacco use panel [facility] Start: 1980 Sex assigned at Not on file A octavio [facility] Goals Date Patient Goal Desired Activity /State Functional Status Date Assessment Result Facility 01-07-2022 Functional status Ambulates [facility] Work Phone: 01-03-2022 Functional status Ambulates;Up ad blake [facility] Work Phone: Mental Status Date Assessment Result Facility 01-07-2022 Cognitive function Level Of Cons ciousness Awake;Alert;Appropriate;Follow s Commands [facility] Work Phone: 01-06-2022 Cognitive function Comprehension Ability Demonstrates ability to follow instructions/comprehend [facility] Work Phone: 01-06-2022 Cognitive function Arousable To Light Dianna n [facility] Work Phone: 01-06-2022 [facility]: 01-03-2022 Cognitive function Awake;Alert;Appropriat e [facility] Work Phone: 01-03-2022 Cognitive function [facility] Work Phone: 12-02-2021 Cognitive function Voice/Name [facility] Work Phone: Clinical Notes 07-26-2023 to 08-28-2023 Discharge InstructionsAttachmentsNgoc Villalobos DO - 08/28/2023 6:04 PM EDTDajaciel Villalobos DO - 08/28/2023 6:04 PM EDT Note Date & Type Note Facility 08-28-2023 Hospital Discharg e instructions Ngoc Villalobos DO - 08/28/2023 6:11 PM EDT Increase fluids. Drink plenty of water. Stay hydrated. Warm saltwater gargles as needed. Tylenol, ibuprofen for fever pain and body aches. Available [id number] use as directed. Zithromax once a day for next 5 days. Bromfed DM cough syrup tsp every 6 hours as needed for cough congestion runny nose and drainage. Flonase nasal spray 2 spray bilateral nares twice a day for 7 days. Recheck with your primary care provider in 2-4 days. Call office for appointment as needed. Return if worse cough, congestion, runny nose, shortness of breath, wheezing, weakness/lethargy, poor oral intake, fever. The following attachments cannot be sent through Care Everywhere.URI (Upper Respiratory Infection): Viral (Hebrew)Acute Bronchitis or Chest Cold Care Instructions ([facility]) (Hebrew)documented in this encounter [facility] 08-28-2023 Physician Emergency department Note Emergency Department Report [facility] Service Date:.08/28/23 PCP: Ngoc Holloway Chief Complaint: Chief Complaint Patient presents with Cough Cough, sneezing, sore throat, chills, shaking and diarrhea x2 days. Pt states he just can't shake it. HPI Adalid Mclean is a 43 y.o. male presents to the ED today due to cough. 43-year-old male presents to the ER with complaint of cough and congestion that started about 2 days ago. Also complaining of some body aches and chills. He has had some diarrhea. Apparently has a 4-year-old at home with similar symptoms. He is complaining of nasal congestion drainage. Sore throat. Cough has been nonproductive. Has history of asthma/COPD. Use his inhaler. Patient is afebrile. Pulse ox is 99% on room air. Patient states he missed work today and needs a work note. Review of Systems: Review of Systems Constitutional: Negative for chills and fever. HENT: Positive for congestion, rhinorrhea and sore throat. Negative for ear discharge, ear pain, sinus pressure, sinus pain, trouble swallowing and voice change. Eyes: Negative for pain, discharge, redness and visual disturbance. Respiratory: Positive for cough. Negative for chest tightness, shortness of breath and wheezing. Cardiovascular: Negative for chest pain and leg swelling. Gastrointestinal: Positive for diarrhea. Negative for abdominal distention, abdominal pain, nausea and vomiting. Genitourinary: Negative for dysuria, flank pain, frequency and urgency. Musculoskeletal: Positive for myalgias. Negative for back pain and neck pain. Skin: Negative for pallor and rash. Neurological: Negative for dizziness, weakness, numbness and headaches. All other systems reviewed and are negative. Past Medical History: No past medical history on file. Past Surgical History: No past surgical history on file. Allergies: No Known Allergies Medications: Patient's Medications New Prescriptions AZITHROMYCIN 500 MG TABLET Take 1 tablet by mouth daily for 5 days. FLUTICASONE 50 MCG/ACT SUSPENSION NASAL SPRAY 2 sprays per nostril BID for 7 days. PSEUDOEPHEDRINE-BROMPHENIRAMIN E-DEXTROMETHORPHAN 30-2-10 MG/5ML SYRUP Take 5 mL by mouth every 6 hours as needed for Cold Symptoms, Cough, Congestion or Rhinitis. Previous Medications ALBUTEROL 108 (90 BASE) MCG/ACT AERO SOLN INHALER Inhale 1 puff every 6 hours as needed for Shortness of Breath. Modified Medications No medications on file Discontinued Medications No medications on file Family History: History reviewed. No pertinent family history. Social History: Social History Socioeconomic History Marital status: Single Spouse name: Not on file Number of children: Not on file Years of education: Not on file Highest education level: Not on file Occupational History Not on file Tobacco Use Smoking status: Former Types: Cigarettes Smokeless tobacco: Never Vaping Use Vaping status: Never Used Substance and Sexual Activity Alcohol use: Not Currently Drug use: Yes Types: Marijuana Comment: daily Sexual activity: Not on file Other Topics Concern Not on file Social History Narrative Not on file Social Determinants of Health Financial Resource Strain: Not on file Food Insecurity: Not on file Transportation Needs: Not on file Physical Activity: Not on file Stress: Not on file Social Connections: Not on file Intimate Partner Violence: Not on file Housing Stability: Not on file Physical Exam: Physical Exam Vitals and nursing note reviewed. Constitutional: General: He is not in acute distress. Appearance: Normal appearance. He is not ill-appearing or toxic-appearing. HENT: Head: Normocephalic and atraumatic. Right Ear: Tympanic membrane normal. Left Ear: Tympanic membrane normal. Nose: Congestion and rhinorrhea present. Mouth/Throat: Mouth: Mucous membranes are moist. Pharynx: Oropharynx is clear. No oropharyngeal exudate or posterior oropharyngeal erythema. Eyes: Extraocular Movements: Extraocular movements intact. Conjunctiva/sclera: Conjunctivae normal. Pupils: Pupils are equal, round, and reactive to light. Cardiovascular: Rate and Rhythm: Normal rate and regular rhythm. Pulses: Normal pulses. Heart sounds: Normal heart sounds. No murmur heard. No gallop. Pulmonary: Effort: Pulmonary effort is normal. No respiratory distress. Breath sounds: No stridor. Rales present. No wheezing or rhonchi. Chest: Chest wall: No tenderness. Abdominal: General: Abdomen is flat. Bowel sounds are normal. There is no distension. Palpations: Abdomen is soft. There is no mass. Tenderness: There is no abdominal tenderness. There is no right CVA tenderness, left CVA tenderness, guarding or rebound. Hernia: No hernia is present. Musculoskeletal: General: No swelling or tenderness. Normal range of motion. Cervical back: Normal range of motion and neck supple. No rigidity or tenderness. Right lower leg: No edema. Left lower leg: No edema. Lymphadenopathy: Cervical: No cervical adenopathy. Skin: General: Skin is warm and dry. Capillary Refill: Capillary refill takes less than 2 seconds. Findings: No bruising, erythema or rash. Neurological: General: No focal deficit present. Mental Status: He is alert and oriented to person, place, and time. Vital Signs During ED Visit Patient Vitals for the past 24 hrs: BP Temp Temp src Pulse Resp SpO2 Height 08/28/23 1805 -- -- -- -- -- -- 1.753 m (5' 9) 08/28/23 1804 (!) 126/96 98 F (36.7 C) Oral 100 18 99 % -- Orders/Results: Orders Placed This Encounter guaiFENesin-dextromethorphan (ROBITUSSIN DM) 100-10 MG/5ML syrup 10 mL Azithromycin (ZITHROMAX) tablet 500 mg azithromycin 500 MG tablet pseudoephedrine-brompheniramin e-dextromethorphan 30-2-10 MG/5ML Syrup fluticasone 50 MCG/ACT Suspension nasal spray No results found for this or any previous visit. Radiographic Imaging No orders to display Procedures: Procedures Moderate Sedation Procedure: No ED Summary/MDM Ddx; upper respiratory infection, sinusitis, allergic rhinitis, pharyngitis, bronchitis, pneumonia, viral syndrome, influenza, COVID. 43-year-old male complains of runny nose and congestion and cough body aches for the past 2-3 days. Patient states she is healthy. Has history of asthma and uses an inhaler as needed. Cough has been nonproductive. Denies any fever or chills. Complains of moderate nasal congestion with some posterior drainage. Vital signs are stable. Afebrile. Pulse ox 99% on room air. Some mild scattered rales on auscultating his lung. No wheezing or rhonchi. I do not think he needs to be swab. I will treat him for upper respiratory infection and bronchitis. Patient states he called off work today and needs a work note. 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 He can go back to work on Thursday after . I will prescribe Zithromax for him once a day for next 5 days. Bromfed DM cough syrup tsp every 6 hours as needed for cough congestion runny nose and drainage. Flonase nasal spray 2 spray bilateral nares twice a day for 7 days. Increase fluids. Drink plenty of water. Stay hydrated. Warm saltwater gargles as needed. Recheck with your primary care provider in 2-4 days. Return if worse cough, congestion, runny nose/drainage, shortness of breath, wheezing, weakness/lethargy, poor oral intake, fever. Discharged home in stable condition with his girlfriend. Patient voices understanding of his discharge instructions. Clinical Impression: 1. Upper respiratory tract infection, unspecified type 2. Bronchitis No follow-ups on file. New Prescriptions AZITHROMYCIN 500 MG TABLET Take 1 tablet by mouth daily for 5 days. FLUTICASONE 50 MCG/ACT SUSPENSION NASAL SPRAY 2 sprays per nostril BID for 7 days. PSEUDOEPHEDRINE-BROMPHENIRAMIN E-DEXTROMETHORPHAN 30-2-10 MG/5ML SYRUP Take 5 mL by mouth every 6 hours as needed for Cold Symptoms, Cough, Congestion or Rhinitis. Discontinued Medications No medications on file An After Visit Summary was printed and given to the patient with above information. . Ngoc Villalobos DO 08/28/231825 Ngoc Villalobos DO 08/28/231827 [facility] 08-28-2023 Emergency department Note Emergency Department Report [facility] Service Date:.08/28/23 PCP: Ngoc Holloway Chief Complaint: Chief Complaint Patient presents with Cough Cough, sneezing, sore throat, chills, shaking and diarrhea x2 days. Pt states he just can't shake it. HPI Adalid Mclean is a 43 y.o. male presents to the ED today due to cough. 43-year-old male presents to the ER with complaint of cough and congestion that started about 2 days ago. Also complaining of some body aches and chills. He has had some diarrhea. Apparently has a 4-year-old at home with similar symptoms. He is complaining of nasal congestion drainage. Sore throat. Cough has been nonproductive. Has history of asthma/COPD. Use his inhaler. Patient is afebrile. Pulse ox is 99% on room air. Patient states he missed work today and needs a work note. Review of Systems: Review of Systems Constitutional: Negative for chills and fever. HENT: Positive for congestion, rhinorrhea and sore throat. Negative for ear discharge, ear pain, sinus pressure, sinus pain, trouble swallowing and voice change. Eyes: Negative for pain, discharge, redness and visual disturbance. Respiratory: Positive for cough. Negative for chest tightness, shortness of breath and wheezing. Cardiovascular: Negative for chest pain and leg swelling. Gastrointestinal: Positive for diarrhea. Negative for abdominal distention, abdominal pain, nausea and vomiting. Genitourinary: Negative for dysuria, flank pain, frequency and urgency. Musculoskeletal: Positive for myalgias. Negative for back pain and neck pain. Skin: Negative for pallor and rash. Neurological: Negative for dizziness, weakness, numbness and headaches. All other systems reviewed and are negative. Past Medical History: No past medical history on file. Past Surgical History: No past surgical history on file. Allergies: No Known Allergies Medications: Patient's Medications New Prescriptions AZITHROMYCIN 500 MG TABLET Take 1 tablet by mouth daily for 5 days. FLUTICASONE 50 MCG/ACT SUSPENSION NASAL SPRAY 2 sprays per nostril BID for 7 days. PSEUDOEPHEDRINE-BROMPHENIRAMIN E-DEXTROMETHORPHAN 30-2-10 MG/5ML SYRUP Take 5 mL by mouth every 6 hours as needed for Cold Symptoms, Cough, Congestion or Rhinitis. Previous Medications ALBUTEROL 108 (90 BASE) MCG/ACT AERO SOLN INHALER Inhale 1 puff every 6 hours as needed for Shortness of Breath. Modified Medications No medications on file Discontinued Medications No medications on file Family History: History reviewed. No pertinent family history. Social History: Social History Socioeconomic History Marital status: Single Spouse name: Not on file Number of children: Not on file Years of education: Not on file Highest education level: Not on file Occupational History Not on file Tobacco Use Smoking status: Former Types: Cigarettes Smokeless tobacco: Never Vaping Use Vaping status: Never Used Substance and Sexual Activity Alcohol use: Not Currently Drug use: Yes Types: Marijuana Comment: daily Sexual activity: Not on file Other Topics Concern Not on file Social History Narrative Not on file Social Determinants of Health Financial Resource Strain: Not on file Food Insecurity: Not on file Transportation Needs: Not on file Physical Activity: Not on file Stress: Not on file Social Connections: Not on file Intimate Partner Violence: Not on file Housing Stability: Not on file Physical Exam: Physical Exam Vitals and nursing note reviewed. Constitutional: General: He is not in acute distress. Appearance: Normal appearance. He is not ill-appearing or toxic-appearing. HENT: Head: Normocephalic and atraumatic. Right Ear: Tympanic membrane normal. Left Ear: Tympanic membrane normal. Nose: Congestion and rhinorrhea present. Mouth/Throat: Mouth: Mucous membranes are moist. Pharynx: Oropharynx is clear. No oropharyngeal exudate or posterior oropharyngeal erythema. Eyes: Extraocular Movements: Extraocular movements intact. Conjunctiva/sclera: Conjunctivae normal. Pupils: Pupils are equal, round, and reactive to light. Cardiovascular: Rate and Rhythm: Normal rate and regular rhythm. Pulses: Normal pulses. Heart sounds: Normal heart sounds. No murmur heard. No gallop. Pulmonary: Effort: Pulmonary effort is normal. No respiratory distress. Breath sounds: No stridor. Rales present. No wheezing or rhonchi. Chest: Chest wall: No tenderness. Abdominal: General: Abdomen is flat. Bowel sounds are normal. There is no distension. Palpations: Abdomen is soft. There is no mass. Tenderness: There is no abdominal tenderness. There is no right CVA tenderness, left CVA tenderness, guarding or rebound. Hernia: No hernia is present. Musculoskeletal: General: No swelling or tenderness. Normal range of motion. Cervical back: Normal range of motion and neck supple. No rigidity or tenderness. Right lower leg: No edema. Left lower leg: No edema. Lymphadenopathy: Cervical: No cervical adenopathy. Skin: General: Skin is warm and dry. Capillary Refill: Capillary refill takes less than 2 seconds. Findings: No bruising, erythema or rash. Neurological: General: No focal deficit present. Mental Status: He is alert and oriented to person, place, and time. Vital Signs During ED Visit Patient Vitals for the past 24 hrs: BP Temp Temp src Pulse Resp SpO2 Height 08/28/23 1805 -- -- -- -- -- -- 1.753 m (5' 9) 08/28/23 1804 (!) 126/96 98 F (36.7 C) Oral 100 18 99 % -- Orders/Results: Orders Placed This Encounter guaiFENesin-dextromethorphan (ROBITUSSIN DM) 100-10 MG/5ML syrup 10 mL Azithromycin (ZITHROMAX) tablet 500 mg azithromycin 500 MG tablet pseudoephedrine-brompheniramin e-dextromethorphan 30-2-10 MG/5ML Syrup fluticasone 50 MCG/ACT Suspension nasal spray No results found for this or any previous visit. Radiographic Imaging No orders to display Procedures: Procedures Moderate Sedation Procedure: No ED Summary/MDM Ddx; upper respiratory infection, sinusitis, allergic rhinitis, pharyngitis, bronchitis, pneumonia, viral syndrome, influenza, COVID. 43-year-old male complains of runny nose and congestion and cough body aches for the past 2-3 days. Patient states she is healthy. Has history of asthma and uses an inhaler as needed. Cough has been nonproductive. Denies any fever or chills. Complains of moderate nasal congestion with some posterior drainage. Vital signs are stable. Afebrile. Pulse ox 99% on room air. Some mild scattered rales on auscultating his lung. No wheezing or rhonchi. I do not think he needs to be swab. I will treat him for upper respiratory infection and bronchitis. Patient states he called off work today and needs a work note. 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 He can go back to work on Thursday after . I will prescribe Zithromax for him once a day for next 5 days. Bromfed DM cough syrup tsp every 6 hours as needed for cough congestion runny nose and drainage. Flonase nasal spray 2 spray bilateral nares twice a day for 7 days. Increase fluids. Drink plenty of water. Stay hydrated. Warm saltwater gargles as needed. Recheck with your primary care provider in 2-4 days. Return if worse cough, congestion, runny nose/drainage, shortness of breath, wheezing, weakness/lethargy, poor oral intake, fever. Discharged home in stable condition with his girlfriend. Patient voices understanding of his discharge instructions. Clinical Impression: 1. Upper respiratory tract infection, unspecified type 2. Bronchitis No follow-ups on file. New Prescriptions AZITHROMYCIN 500 MG TABLET Take 1 tablet by mouth daily for 5 days. FLUTICASONE 50 MCG/ACT SUSPENSION NASAL SPRAY 2 sprays per nostril BID for 7 days. PSEUDOEPHEDRINE-BROMPHENIRAMIN E-DEXTROMETHORPHAN 30-2-10 MG/5ML SYRUP Take 5 mL by mouth every 6 hours as needed for Cold Symptoms, Cough, Congestion or Rhinitis. Discontinued Medications No medications on file An After Visit Summary was printed and given to the patient with above information. . Ngoc Villalobos DO 08/28/231825 Ngoc Villalobos DO 08/28/231827 documented in this encounter [facility] 07-26-2023 Hospital Discharg e instructions Additional Instructions Use ice to the left shoulder 4-5 times a day for approximately 20 minutes at a time. Do range of motion exercises after icing. [facility] Work Phone: Evaluation note No assessment inform ation available [facility] Work Phone: Evaluation note Diagnosis Onset Date Dehydration acute GI bleed acute [facility] Work Phone: Evaluation note* Diagnosis Onset Date Resolution Status Dehydration acute GI bleed acute Pancreatitis acute [facility] Work Phone: Evaluation note* Diagnosis Onset Date Resolution Status Dehydration acute GI bleed acute Pancreatitis acute GI bleed acute [facility] Work Phone: Evaluation note* Diagnosis Onset Date Resolution Status Dehydration acute GI bleed acute Pancreatitis acute Dehydration acute GI bleed acute Hypertension acute Pancreatitis acute [facility] Work Phone: Evaluation note* Diagnosis Onset Date Resolution Status GI bleed resolved Hypertension acute GI bleed resolved [facility] Work Phone: Evaluation note* Diagnosis Upper respiratory tract infection, unspecified type- Primary Bronchitis Bronchitis, not specified as acute or chronic [facility] Additional Instructions Ice area and elevate, take ibuprofen as needed for swelling and pain. Use crutches and Aircast for as long as you need, you should be able to use the crutches less or not at all after 1 or 2 weeks.[facility] Work Phone: [facility] Work [facility]: Summary Purpose Family History No Family History Records Found Relationship Condition Age at Onset Recorded Date/T bill Not Specified Malignant neoplasm of liver Unknown Malignant neoplasm of ovary Unknown Advance Directives No Advanced Directives Records Found Advance Directive Response Recorded Date/ Time Living Will No September 20, 2021 6:21am Power of Exploration Geologist No September 20 2 6:21am Advance Directive Response Recorded Date/ Time Living Will No November 15 5:55pm Power of Exploration Geologist No November 15 5:55pm Advance Directive Response Recorded Date/ Time Living Will No December 02 2 9:59am Power of Exploration Geologist No December 02 9:59am Advance Directive Response Recorded Date/ Time Living Will No December 31, 2021 3:47pm Power of Exploration Geologist No December 3:47pm Advance Directive Response Recorded Date/ Time Living Will No December 31, 2021 9:47pm Power of Exploration Geologist No December 9:47pm Advance Directive Response Recorded Date/ Time Living Will No January 06 1:15am Power of Exploration Geologist No January 06 1:15am Advance Directive Response Recorded Date/ Time Living Will No January 06 4:05am Power of Exploration Geologist No January 06 4:05am Advance Directive Response Recorded Date/ Time Living Will No February 28 8:34am Power of Exploration Geologist No February 28, 2022 8:34am Advance Directive Response Recorded Date/ Time Living Will No March 03 7:42pm Power of Exploration Geologist No March 03, 2022 7:42pm Advance Directive Response Recorded Date/ Time Living Will No April 16 8:29am Power of Exploration Geologist No April 16, 2023 8:29am Advance Directive Response Recorded Date/ Time Living Will No July 26, 2023 12:11pm Power of Exploration Geologist No July 25 12:11pm Chief Complaint and Reason for Visit Chief Complaint FOOT Chief Complaint FOOT ARM Chief Complaint FOOT ARM chest pain Chief Complaint FOOT ARM chest pain ACUTE LOWER GI BLEED Reason for Visit Dehydration GI bleed Chief Complaint FOOT ARM chest pain ACUTE LOWER GI BLEED ACUTE LOWER GI BLEED ACUTE LOWER GI BLEED ACUTE LOWER GI BLEED Reason for Visit Dehydration GI bleed Pancreatitis Chief Complaint FOOT ARM chest pain ACUTE LOWER GI BLEED ACUTE LOWER GI BLEED ACUTE LOWER GI BLEED ACUTE LOWER GI BLEED ACUTE LOWER GI BLEED GI BLEED Reason for Visit Dehydration GI bleed Pancreatitis GI bleed Chief Complaint FOOT ARM chest pain ACUTE LOWER GI BLEED ACUTE LOWER GI BLEED ACUTE LOWER GI BLEED ACUTE LOWER GI BLEED ACUTE LOWER GI BLEED GI BLEED GI BLEED GI BLEED GI BLEED Reason for Visit Dehydration GI bleed Pancreatitis Dehydration GI bleed Hypertension Pancreatitis Chief Complaint ARM chest pain ACUTE LOWER GI BLEED ACUTE LOWER GI BLEED ACUTE LOWER GI BLEED ACUTE LOWER GI BLEED ACUTE LOWER GI BLEED ACUTE LOWER GI BLEED GI BLEED GI BLEED GI BLEED GI BLEED lac Reason for Visit GI bleed Hypertension GI bleed Chief Complaint ARM chest pain ACUTE LOWER GI BLEED ACUTE LOWER GI BLEED ACUTE LOWER GI BLEED ACUTE LOWER GI BLEED ACUTE LOWER GI BLEED ACUTE LOWER GI BLEED GI BLEED GI BLEED GI BLEED GI BLEED lac GI BLEED Reason for Visit GI bleed Hypertension GI bleed Chief Complaint COUGH SOB Chief Complaint COUGH SOB SHOULDER PAIN Additional Source Comments (unrecognized sect ion and content) No Status Records FoundNo Status Records FoundNo Status Records FoundNo Status Records Found INFORMATION SOURCE (unrecogn ized section and content) DATE CREATED AUTHOR 10/03/2020 [facility] ([place]) DATE CREATED AUTHOR AUTHOR'S ORGANIZ ATION 05/26/2021 [facility] [place] DATE CREATED AUTHOR AUTHOR'S ORGANIZ ATION 09/01/2023 [facility] DATE CREATED AUTHOR AUTHOR'S ORGANIZ ATION 05/21/2024 [facility] Goals (unrecognized section and content) Goals may be documented in a n alternate sectionGoals may be documented in an alternate sectionGoals may be documented in an alternate sectionGoals may be documented in an alternate sectionGoals may be documented in an alternate sectionGoals may be documented in an alternate section Care Teams (unrecognized sec tion and content) Team Status: Active Member Role Status Dates No Primary Care Physician Family Provider Active Dr. Ena Holloway MD Primary Care Provider Active Team Status: Inactive Member Role Status Dates Dr. Ena Holloway MD Primary Care Provider Active Dr. Christiano Garcia MD Attending Provider, Emergency Pro vider Active Team Status: Inactive Member Role Status Dates Dr. Ena Holloway MD Primary Care Provider Active Dr. Divya Nobles MD Emergency Provider Active Team Status: Inactive Member Role Status Dates Dr. Ena Holloway MD Primary Care Provider Active Dr. Divya Nobles MD Attending Provider, Emergency Provider Active Team Status: Inactive Member Role Status Dates Dr. Ena Holloway MD Primary Care Provider Active Dr. Rhett Tyler DO Emergency Provider Active Sailor Relationship Specialty Start Date End Date Ngoc Holloway DO [address] [place] [id number] PCP - General Family Medicine 08/28/23 Reason for Visit (unrecogniz ed section and content) Reason Comments Cough Cough, sneezing, sor e throat, chills, shaking and diarrhea x2 days. Pt states he just can't shake it. Scheduled Active and Recently Administ ered Medications (unrecognized section and content) Medication Order 08/26/2023 08/27/2023 08/28/2023 Azithromycin (ZITHROMAX) tablet 500 mg (COMPLETED) 500 mg, Oral, ONCE, 1 dose, On Thu08/28/23 at 1815 1834 (Given - Provid er: Irma Wilson RN) guaiFENesin-dextromethorphan (ROBITUSSIN DM) 100-10 MG/5ML syrup 10 mL (COMPLETED) 10 mL, Oral, ONCE, 1 dose, On Thu08/28/23 at 1815 1835 (Given - Provid er: Irma Wilson RN) FOR RECORDS PERTAINING TO PATIENTS WHO ARE [...] BE BASED ON THE PRIMARY CLINICAL RECORDS. [employer] provides no warranty or guarantee of the accuracy or completeness of information in this document.
[2024-10-15 13:37] LABS: AST(SGOT) 25 U/L (<=37); Alanine Aminotransfer ALT/SGPT 32 U/L (<=46); Albumin, Serum 4.7 g/dL (3.5-5.0); Alkaline Phosphatase 66 U/L (40-129); Anion Gap 12 (5-15); BUN 11 mg/dL (4-19); BUN/Creat Ratio 11.1 RATIO (10-20); Calcium,Total 9.4 mg/dL (7.6-11.0); Carbon Dioxide 22.7 mmol/L (21.0-32.0); Chloride 108 mmol/L (98-108); Estimated Creatinine Clearance 97.17 ml/min (50-250); Globulin 2.9 g/dL (2.2-4.2); Glucose 85 mg/dL (70-99); Potassium 4.2 mmol/L (3.3-5.1)
[2024-10-15 13:38] LABS: Troponin T High Sensitivity < 6 ng/L (<=22)
[2024-10-15 15:10] LABS: Troponin T High Sens 2 HR < 6 ng/L (<=22)
== END 2024-10-15 15:23 | disposition home or self-care (01) ==
PROVIDERS: Physician Assistant; Emergency Provider Emergency Medicine; Visit Provider Emergency Medicine
DX: R07.9 Chest pain, unspecified (principal); R11.2 Nausea with vomiting, unspecified; R10.812 Left upper quadrant abdominal tenderness; K62.5 Hemorrhage of anus and rectum; R05.9 Cough, unspecified; J45.909 Unspecified asthma, uncomplicated; I10 Essential (primary) hypertension; F17.200 Nicotine dependence, unspecified, uncomplicated
CPT/HCPCS: 71275; 74174; 80053; 84484; 85025; 93005; 96374; 96375; 99284; Q9967; A4216; J2405

== ENCOUNTER 2024-10-30 22:55 | Emergency (ER) | payer OTHER, SELFPAY ==
[2024-10-30 22:55] VITALS: BP 159/112; PULSE 73; RESP 18; TEMP 36.7; O2SAT 98; BMI 27.1
--- NOTE | 2024-10-30 23:08 | CT_ITS ---
PROCEDURE: ABDOMEN/PELVIS W IV CONT ONLY 10/31/2024 REASON FOR EXAM: RUQ/EPIGAST PAIN, N/V/D TECHNIQUE: ABDOMEN/PELVIS W IV CONT ONLY Coronal and Sagittal reconstruction series were provided. CONTRAST: Isovue 370 VOLUME: 99 mL One or more dose reduction techniques were used (e.g., Automated exposure control, adjustment of the mA and/or kV according to patient size, use of iterative reconstruction technique. RADIATION DOSE SUMMARY: CTDlvol: 40 mGy DLP: 1312 mGycm COMPARISON: 10/15/2024 FINDINGS: Under aerated lung bases. Normal heart size. Diffuse hepatic steatosis. There are 3 liver hemangiomas, largest measures 3.6 cm. No suspicious liver lesions. Normal gallbladder, pancreas, spleen, adrenal glands. 1 mm right renal calcification. No hydronephrosis or ureteral stone. Normal bladder. Normal prostate. No retroperitoneal or pelvic adenopathy. No free air. Nondistended bowel. Status post appendectomy. Diverticulosis. No acute large bowel findings. Lumbar spine degeneration. No acute abdominal wall findings. CT/Abdomen/Pelvis W IV Cont ONLY IMPRESSION: No acute findings. Reading Location: [place] [id number]
--- NOTE | 2024-10-30 23:09 | ED.VIS.GI ---
HPI HPI - GI History of Present Illness Chief Complaint: Nausea/Vomiting/Diarrhea Informant: patient Narrative Narrative: 44-year-old male presenting with vomiting and diarrhea has been half a day, had 5 bouts of diarrhea, more vomiting. No blood in either 1, no melena. He had some right upper quadrant pain as well. He states actually started having a headache earlier in the morning that got worse and then the vomiting started, sort of similar to migraines that he has had the past. Prior to vomiting took some ibuprofen the headache is not as bad but is still there. He states after he took the ibuprofen, started having upper abdominal discomfort like he needed to have a bowel movement, which is when the diarrhea started, followed by the vomiting. At 1 point the abdominal pain was more significant, and then eased up later. He had eaten some bologna earlier than this. No known sick contacts. No antibiotics recently for anything. No travel out of the area. No suspicious food intake. PFSH PFS Medical History Migraines Asthma Internal hemorrhage Hypertension Home Medications ?Medication ?Instructions ?Recorded ?Last Taken ?Type hyoscyamine sulfate 0.125 mg 0.125 - 0.25 mg (1 - 2 x 0.125 mg) 10/31/24 Unknown Rx disintegrating tablet PO Q8H PRN abdominal discomfort #20 tabs ondansetron 8 mg disintegrating 8 mg PO Q8H PRN nausea and 10/31/24 Unknown Rx tablet vomiting #15 tabs Allergy/AdvReac Type Severity Reaction Status Date / Time No Known Allergies Allergy Verified 10/30/24 22:56 Family History Other Liver cancer Ovarian cancer Surgical History History of appendectomy Social History household members: spouse Smoking Status: Current every day smoker tobacco type: cigarettes substance use type: does not use ROS ROS ED Constitutional Constitutional ED: Denies chills or fever(s) Eyes Eyes: Denies change in vision or diplopia ENT ENT ED: Denies rhinorrhea or sore throat Cardiovascular Cardiovascular: Denies chest pain or palpitations Respiratory/Chest Respiratory/Chest: Denies cough or dyspnea Gastrointestinal Gastrointestinal: Reports abdominal pain, diarrhea, nausea and vomiting; Denies hematemesis, hematochezia or melena Genitourinary Genitourinary ED: Denies dysuria or hematuria Musculoskeletal Musculoskeletal: Denies back pain or neck pain Integumentary Denies abscess or rash Neurologic Neurologic: Reports headache(s); Denies paresthesias or weakness Psychiatric Psychiatric: Denies suicidal thoughts EXAM Physical Exam Const Vital Signs: 10/30/24 22:55 10/31/24 00:55 10/31/24 02:16 Temperature 98.1 F Temperature Source Oral Pulse Rate 73 55 L 58 L Respiratory Rate 18 18 28 H Blood Pressure 159/112 H 127/82 H Blood Pressure Mean 127 97 Pulse Ox 98 98 98 Oxygen Delivery Method Room Air Room Air Room Air Positive well nourished and well developed General Appearance ED: well developed and NAD HEENT Reports moist mucous membranes normocephalic and atraumatic Eyes PERRL and EOMs intact bilaterally Neck full ROM and supple Resp normal respiratory effort and clear to auscultation bilaterally Cardio regular rate, regular rhythm and no murmurs GI non-distended GI Narrative: Tenderness right upper quadrant and epigastrium, and some mild tenderness in the left lower quadrant. No other areas of tenderness. No guarding or rebound negative Cohn. 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 Medications helped some, but still having abdominal pain upper. I reviewed the CT images and report which I agree with, it is negative for any acute. His labs are all normal including white blood count of 6.5, liver enzymes, lipase. Urinalysis unremarkable. I did bedside ultrasound. He is tender over the gallbladder, but I do not see any shadowing stones or pericholecystic fluid. Given all the diarrhea he had, it is more suspicious that this is intestinal-related pain so I then gave him some Levsin. He said this really helped. His urine then came back negative as well. Given all of this at this time I think he can be safely discharged home. Hopefully this is all viral gastroenteritis which is certainly in the differential diagnosis. He did not have stool to provide here for us to send for an enteric panel, but if this is a low risk diarrhea for bacterial cause. I advised him to follow-up with his doctor. We discussed reasons to return, he is asking for work note which was also given. Lab Data Attestation: I reviewed the patient's lab results. Labs: Laboratory Results - last 24 hr 10/30/24 10/31/24 23:30 00:49 WBC 6.5 RBC 5.20 Hgb 17.6 H Hct 49.4 MCV 95.0 H MCH 33.8 H MCHC 35.6 RDW Std Deviation 42.7 RDW Coeff of Sravani 12.2 Plt Count TNP MPV 12.1 H Immature Gran % (Auto) 0.500 Neut % (Auto) 51.6 Lymph % (Auto) 38.1 [place] % (Auto) 8.0 Eos % (Auto) 0.9 Baso % (Auto) 0.9 Absolute Neuts (auto) 3.4 Absolute Lymphs (auto) 2.49 Nucleated RBC % 0 Differential Comment SCANNED Platelet Estimate ADEQUATE Sodium 138 Potassium 3.4 Chloride 104 Carbon Dioxide 20.7 L Anion Gap 14 BUN 9 Creatinine 1.01 Estim Creat Clear Calc 92.36 Est GFR (MDRD) Non-Af 93 BUN/Creatinine Ratio 9.1 L Glucose 91 Calcium 9.4 Total Bilirubin 0.53 AST 20 ALT 27 Alkaline Phosphatase 61 Total Protein 7.2 Albumin 4.5 Globulin 2.7 Albumin/Globulin Ratio 1.7 Lipase 22 Urine Color Yellow Urine Clarity Clear Urine pH 6.5 Ur Specific Jewett 1.010 Urine Protein 15 H Urine Glucose (UA) Normal Urine Ketones Negative Urine Occult Blood Negative Urine Nitrite Negative Urine Bilirubin Negative Urine Urobilinogen Normal Ur Leukocyte Esterase Negative Urine RBC 0 SEEN Urine WBC 0-5 SEEN Ur Squamous Epith Cells 0 SEEN Urine Bacteria 0 SEEN Urine Mucus 0 SEEN Radiography Diagnostic Testing: Clinical Impression(s) from Imaging Studies Abdomen/Pelvis CT 10/30/24 23:08 IMPRESSION: No acute findings. Reading Location: [place] [id number] Discharge Plan Triage Chief Complaint: Nausea/Vomiting/Diarrhea ED Provider: Josef Gonzalez Dx/Rx/DC Orders Clinical Impression: Acute upper abdominal pain, Nausea vomiting and diarrhea Instructions: ED Diet Vomiting Diarrhea, ED Gastroenteritis, Viral (Adult), ED Epigastric Pain Uncertain Cause Prescriptions: New ondansetron 8 mg tablet,disintegrating 8 mg PO Q8H PRN (Reason: nausea and vomiting) Qty: 15 0RF hyoscyamine sulfate 0.125 mg tablet,disintegrating 0.125 - 0.25 mg PO Q8H PRN (Reason: abdominal discomfort) Qty: 20 0RF Discontinued ondansetron HCl 4 mg tablet 4 mg PO Q6H PRN (Reason: nausea and vomiting) Qty: 12 0RF Stand Alone Forms: ED Work / School Excuse Primary Care Provider: Makeda Hawkins Referrals: Makeda Hawkins [employer] [Primary Care Provider] - 3-5 Days if not improving Print Language: Citizen Of [place] Disposition Disposition: Home, Self Care
--- OUTSIDE RECORDS SUMMARY | 2024-10-30 23:19 | XMS RPT_ITS | CCD ---
Author Organization [facility] Care Team Providers Care Laminating Press Operator Name Role Phone Dr. Ena Holloway Primary Care Provider [phone] Dr. Divya Nobles Emergency Provider Dr. Mandeep Siegel Provider Dr. Mandeep Siegel Other Provider Dr. Lucas Barfield Other Provider [phone] Kyle Ly Other Provider Carl SENIOR INTEGRATION DEVELOPER, SENIOR INTEGRATION DEVELOPER-C Zabrina Attending Provider Dr. Lucas Barfield Attending Provider [phone] Dr. Kyle Ly Attending Provider Dr. Kyle Ly Attending Provider Dr. Ngoc Hansen Referring Provider Unavailable Dr. Mandeep Siegel Attending Provider Dr. Ngoc Hansen Other Provider Unavailable Dr. Ngoc Hansen Attending Provider Unavailable Dr. Ena Holloway Primary Care Provider [phone] Yoshi Catalan Attending Provider [phone] Mandeep Siegel Referring Provider Dr. Divya Nobles Emergency Provider Dr. Mandeep Siegel Provider Dr. Mandeep Siegel Other Provider Dr. Lucas Barfield Other Provider [phone] Kyle Ly Attending Provider Dr. Kyle Ly Other Provider Friend, Dr. Zavala Attending Provider Dr. Ngoc Hansen Referring Provider Unavailable Dr. Mandeep Siegel Attending Provider [phone] Dr. Ngoc Hansen Other Provider Unavailable Dr. Ngoc Hansen Attending Provider Unavailable Ngoc Holloway DO Primary Care Provider UnavailNGOC Johnston Primary Care Unavailable NGOC VILLALOBOS Attending Unavailable Care Physician, No Primary Primary Care Provider Unavailable Dr. Kenny Wells DO Emergency Provider [phone] PHYSICIAN, NONE Primary Care Physician Unavailab le PHYSICIAN, NONE Primary Care Unavailable PRO QUINONES MD Attending Unavailable Care Physician, No Primary Primary Care Unava ilable Kenny Wells Attending Unavailable Shruthi, Makeda Primary Care Unavailable Shruthi, Makeda Referring Unavailable Makeda Hawkins Attending Unavailable Shruthi, Makeda Attending Unavailable Shruthi, Makeda Primary Care Unavailable Shruthi, Makeda Referring Unavailable Shruthi, Makeda Primary Care Unavailable Josef Gonzalez Attending Unavailable Rhett Tyler Attending Unavailable Care Physician, No Primary Primary Care Unava ilable Medications Current Medications Medication Drug Class(es) Dates Sig (Normalized) Sig (Original) acetaminophen 325 mg / HYDROcodone bitartrate 5 mg oral tablet (20 sources) Opioid Agonist Start: 11-15-2021 take 1 tablet by mouth every six hours Hydrocodone-Aceta minophen Active 1 TABLET PO EVERY 6 HOURS 10 3 November 15, 2021 Start: 04-22-2020 End: 04-25-2020 Hydrocodone-Acetaminophen 1 TABLET tablet Discontinued 1 {tbl} PO EVERY 6 HOURS NEEDED as needed for Pain 10 3 0 April 22, 2020 April 24, 2020 1:00am April 25, 2020 1:03am Thoracic nerve root compression Radiculopathy, thoracic region Start: 04-22-2020 End: 04-25-2020 take 1 tablet by mouth every six hours as needed Hydrocodone-Acetaminophen Discontinued 1 TABLET PO EVERY 6 HOURS NEEDED 10 3 April 22, 2020 April 25, 2020 1:03am Start: 12-29-2018 End: 01-03-2019 Hydrocodone-Acetaminophen 1 TABLET tablet Discontinued 1 {tbl} PO EVERY 4 HOURS NEEDED as needed for Pain 10 2 0 December 29, 2018 December 30, 2018 12:00am January 03, 2019 12:09am Neck sprain Sprain of joints and ligaments of unspecified parts of neck, initial encounter Start: 12-29-2018 End: 01-03-2019 take 1 tablet by mouth every four hours as needed Hydrocodone-Acetaminophen Discontinued 1 TABLET PO EVERY 4 HOURS NEEDED 10 2 December 29, 2018 January 03, 2019 12:09am Start: 02-05-2018 End: 02-08-2018 Hydrocodone-Acetaminophen 1 TABLET tablet Discontinued 1 {tbl} PO EVERY 4 HOURS NEEDED as needed for Pain 15 3 0 February 05, 2018 12:00am February 07, 2018 12:00am February 08, 2018 1:08am Back pain Dorsalgia, unspecified Start: 02-05-2018 End: 02-08-2018 take 1 tablet by mouth every four hours as needed Hydrocodone-Acetaminophen Discontinued 1 TABLET PO EVERY 4 HOURS NEEDED 15 3 February 05, 2018 12:00am February 08, 2018 1:08am 200 actuat albuterol 0.09 mg/actuat dry powder inhaler (2 sources) beta2-Adrenergic Agonist Start: 10-17-2024 take 1 puff(s) by inhalation every four hours as needed for wheezing albuterol 90 mcg/inh inhalation powder 1 puff(s), Inhalation, q4h, PRN as needed for shortness of breath or wheezing, # 1 EA, 0 Refill(s) Start Date: 10/17/24 Status: Ordered Quantity: 1.0 Unit: EA Repeat number: 1 take 1 puff(s) by in halation every six hours as needed Albuterol 108 (90 Base) MCG/ACT Aero Elsi n inhaler Inhale 1 puff every 6 hours as needed for Shortness of Breath. Active azithromycin 500 mg oral tablet (2 sources) Macrolide Antimicrobial Start: 08-28-2023 End: 08-28-2023 take 1 dose by mouth once 500 [...] oral solution (1 source) alpha-Adrenergic Agonist, Uncompetitive I-hgwdjp-B-aspartate Receptor Antagonist, Sigma-1 Agonist Start: 08-28-2023 take 5 mL by mouth every six hours as needed mwswbztefbodwxn-mflbqgudvwwxlby-pbglgbwd thorphan 30-2-10 MG/5ML Syrup Take 5 mL [...] for 7 days. 16 g 08/28/2023 Active ibuprofen 600 mg oral tablet (1 source) Nonsteroidal Anti-inflammatory Drug Start: 12-02-2021 take 600 mg by mouth every eight hours as needed Ibuprofen Active 600 MG PO EVERY 8 HOURS NEEDED December 02, 2021 12:00am meclizine hydrochloride 25 mg oral tablet (1 source) Antiemetic Start: 10-17-2024 End: 10-20-2024 meclizine 25 mg oral tablet Dose : 25 mg = 1 tab(s), Oral, TID, X 3 day(s), # 9 tab(s), 0 Refill(s), 10/20/24 2:44:00 PM EDT Start Date: 10/17/24 Stop Date: 10/20/24 Status: Ordered Quantity: 9.0 Unit: tab(s) Repeat number: 1 Maynard (Nk) (2 sources) Start: 10-15-2024 Maynard (Nk) Active October 12:00am Start: 09-20-2021 Maynard (Nk) A ctive September 20, 2021 12:00am ondansetron 4 mg oral tablet (1 source) Serotonin-3 Receptor Antagonist Start: 10-15-2024 take 1 tablet by mouth every six hours as needed for nausea and vomiting Ondansetron Hcl 4 mg tablet Active 4 mg PO EVERY 6 HOURS as needed for nausea and vomiting October 15, 2024 12:00am Completed/Discontinued Medications Medication Drug Class(es) Dates Sig (Normalized) Sig (Original) dextromethorphan hydrobromide 2 mg/ml / guaiFENesin 20 mg/ml oral suspension (1 source) Uncompetitive E-xhabdh-T-aspartat e Receptor Antagonist, Sigma-1 Agonist Start: 08-28-2023 End: 08-28-2023 take 1 dose by mouth once 10 mL, Oral, ONCE, 1 dose, On Thu08/28/23 at 1815 diazePAM 5 mg oral tablet (12 sources) Benzodiazepine Start: 02-05-2018 End: 02-08-2018 take 1 tablet by mouth every eight hours as needed for muscle spasms Diazepam 5 MG tablet Discontinued 5 mg PO EVERY 8 HOURS as needed for Muscle Spasm 15 3 February 05, 2018 12:00am February 07, 2018 12:00am February 08, 2018 1:08am Spasm of back muscles Muscle spasm of back hydroCHLOROthiazide 25 mg / lisinopril 20 mg oral tablet (10 sources) Thiazide Diuretic, Angiotensin Converting Enzyme Inhibitor Start: 12-02-2021 End: 05-02-2024 Lisinopril-[place] chlorothiazide 20-25 mg tablet Discontinued 1 {tbl} PO DAILY December 02, 2021 12:00am May 02, 2024 2:30am HTN Start: 12-02-2021 [facility] Lisinopril-Hydrochlorothiazide Active 1 TABLET PO DAILY December 02, 2021 12:00am hydrocortisone 25 mg/ml topical cream (6 sources) Corticosteroid Start: 01-07-2022 End: 10-15-2024 Hydrocortisone (Anusol-Hc) 2.5 % cream with perineal applicator Discontinued 1 NMA RC AT BEDTIME January 07, 2022 12:00am October 15, 2024 12:14pm Start: 01-07-2022 Hydrocortisone (Anusol-Hc) 2.5 % cream with perineal applicator Active 1 APPLIC RC AT BEDTIME January 07, 2022 12:00am levoFLOXacin 750 mg oral tablet (3 sources) Quinolone Antimicrobial Start: 04-16-2023 End: 05-02-2024 take 1 tablet by mouth once daily Levofloxacin 750 mg tablet Discontinued 750 mg PO DAILY 4 April 16, 2023 1:00am May 02, 2024 2:30am naproxen 500 mg oral tablet (2 sources) Nonsteroidal Anti-inflammatory Drug Start: 07-26-2023 End: 10-15-2024 take 1 tablet by mouth twice daily as needed Naproxen 500 mg tablet Discontinued 500 mg PO TWICE DAILY NEEDED 20 July 26, 2023 12:00am October 15, 2024 12:25pm pantoprazole 40 mg delayed release oral tablet (6 sources) Proton Pump Inhibitor Start: 01-07-2022 End: 05-02-2024 take 1 tablet by mouth once daily Pantoprazole (Protonix) 40 mg tablet,delayed release (DR/EC) Discontinued 40 mg PO DAILY 90 January 07, 2022 12:00am May 02, 2024 2:30am predniSONE 20 mg oral tablet (4 sources) Start: 04-16-2023 End: 05-02-2024 take 2 tablets by mouth once daily Prednisone 20 mg tablet Discontinued 40 mg PO DAILY 8 April 16, 2023 1:00am May 02, 2024 2:30am Start: 04-16-2023 take 40 mg by mouth once daily Prednisone Active 40 MG PO DAILY April 16, 2023 1:00am Start: 11-15-2021 take 60 mg by mouth once daily Prednisone Active 60 MG PO DAILY November 15, 2021 12:00am Problems Active Problems Problem Classification Problem Date Documented Da te Episodic/Chronic Abdominal pain (4 sources) Lower abdominal pain; Translations: [Lower abdominal pain, unspecified] 03-11-2022 Episodic Alcohol-related disorders (4 sources) Alcoholism; Translations: [Alcohol dependence, uncomplicated] 03-11-2022 Chronic Asthma (3 sources) Exacerbation of asthma; Translations: [Unspecified asthma with (acute) exacerbation] 04-16-2023 Chronic Cardiac dysrhythmias (4 sources) Sinus tachycardia; Translations: [Tachycardia, unspecified] 03-11-2022 Episodic Chronic obstructive pulmonary disease and bronchiectasis (3 sources) Bronchitis; Translations: [Bronchitis, not specified as acute or chronic] Onset: 08-28-2023 08-28-2023 Episodic Conditions associated with dizziness or vertigo (3 sources) Dizziness and giddiness; Translations: [Dizziness and giddiness] Onset: 10-17-2024 Episodic Disorders of teeth and jaw (12 sources) Toothache; Translations: [Other specified disorders of teeth and supporting structures] 02-11-2014 Episodic Essential hypertension (9 sources) Hypertensive disorder; Translations: [Essential (primary) hypertension] Chronic Fluid and electrolyte disorders (19 sources) Dehydration; Translations: [Dehydration] Episodic Headache; including migraine (14 sources) Headache; Translations: [Headache] Onset: 10-17-2024 02-24-2018 Episodic Headache; including migraine (1 source) Headache; including migraine; Translations: [Headache, unspecified] Onset: 10-17-2024 Hemorrhoids (4 sources) Bleeding internal hemorrhoids; Translations: [Other hemorrhoids] 03-11-2022 Episodic Influenza (3 sources) Influenza due to Influenza A virus; Translations: [Influenza due to other identified influenza virus with other respiratory manifestations] 04-10-2023 Episodic Nausea and vomiting (1 source) Nausea and vomiting; Translations: [Nausea with vomiting, unspecified] 10-15-2024 Episodic Neoplasms of unspecified nature or uncertain behavior (4 sources) Polycythemia vera (clinical); Translations: [Polycythemia vera] 03-11-2022 Chronic Nonspecific chest pain (20 sources) Atypical chest pain; Translations: [Other chest pain] Onset: 10-17-2024 12-10-2021 Episodic Open wounds of extremities (5 sources) Laceration of left thumb; Translations: [Laceration without foreign body of left thumb without damage to nail, initial encounter] 03-08-2022 Episodic Other bone disease and musculoskeletal deformities (12 sources) Costal chondritis; Translations: [Chondrocostal junction syndrome [Tietze]] 07-01-2018 Episodic Other connective tissue disease (12 sources) Spasm of cervical paraspinous muscle; Translations: [Other muscle spasm] 12-30-2018 Episodic Other liver diseases (1 source) Hepatomegaly, not elsewhere classified; Translations: [Hepatomegaly, not elsewhere classified] Onset: 10-30-2024 Episodic Other non-traumatic joint disorders (2 sources) Pain in left shoulder; Translations: [Acute pain of left shoulder] 07-26-2023 Episodic Other upper respiratory infections (15 sources) Acute upper respiratory infection; Translations: [Acute upper respiratory infection, unspecified] Onset: 08-28-2023 07-01-2018 Episodic Pancreatic disorders (not diabetes) (7 sources) Pancreatitis; Translations: [Acute pancreatitis without necrosis or infection, unspecified] Episodic Pneumonia (except that caused by tuberculosis or sexually transmitted disease) (3 sources) Pneumonia; Translations: [Pneumonia, unspecified organism] 04-16-2023 Episodic Residual codes; unclassified (1 source) Tobacco use and exposure - finding; Translations: [Tobacco use] 05-10-2024 Episodic Spondylosis; intervertebral disc disorders; other back problems (11 sources) Cervical radiculopathy; Translations: [Radiculopathy, cervical region] 11-23-2021 Episodic Sprains and strains (20 sources) Sprain of ankle; Translations: [Sprain of unspecified ligament of right ankle, initial encounter] 10-04-2019 Episodic Viral infection (12 sources) Viral disease; Translations: [Viral infection, unspecified] 02-24-2018 Episodic Past or Other Problems Problem Classification Problem Date Documented Da te Episodic/Chronic Gastrointestinal hemorrhage (20 sources) Gastrointestinal hemorrhage; Translations: [Gastrointestinal hemorrhage, unspecified] Onset: Episodic Results Test Name Value Interpretation Reference Range Facility .Auto Diffon 10-17-2024 Basophil, Absolute 0.0 10 3/mcL Normal 0.0-0.3 [facility] Comment on above: Performed By: #### A KIMBERLY, ADIFF, APTT, MDW, GFR, CMP, PRO, TROPHS, PBNP, CBC #### [address] [address] Basophils/100 WBC (Bld) 0.8 % Normal 0.0-2.5 [facility] Comment on above: Performed By: #### A KIMBERLY, ADIFF, APTT, MDW, GFR, CMP, PRO, TROPHS, PBNP, CBC #### [id number] [place], [place] [address] Eosinophil, Absolute 0.1 10 3/mcL Normal 0.0-0.7 [facility] Comment on above: Performed By: #### A KIMBERLY, ADIFF, APTT, MDW, GFR, CMP, PRO, TROPHS, PBNP, CBC #### [address] [address] Eosinophils/100 WBC (Bld) 1.8 % Normal 0.0-6.0 [facility] Comment on above: Performed By: #### A KIMBERLY, ADIFF, APTT, MDW, GFR, CMP, PRO, TROPHS, PBNP, CBC #### [address] [address] Lymphocyte, Absolute 1.8 10 3/mcL Normal 0.9-4.3 [facility] Comment on above: Performed By: #### A KIMBERLY, ADIFF, APTT, MDW, GFR, CMP, PRO, TROPHS, PBNP, CBC #### [address] [address] Lymphocytes/100 WBC (Bld) 31.0 % Normal 20.0-40.0 [facility] Comment on above: Performed By: #### A KIMBERLY, ADIFF, APTT, MDW, GFR, CMP, PRO, TROPHS, PBNP, CBC #### [address] [address] Monocyte, Absolute 0.4 10 3/mcL Normal 0.1-1.4 [facility] Comment on above: Performed By: #### A KIMBERLY, ADIFF, APTT, MDW, GFR, CMP, PRO, TROPHS, PBNP, CBC #### [address] [address] Monocytes/100 WBC (Bld) 7.2 % Normal 2.0-13.[address] [facility] Comment on above: Performed By: #### A KIMBERLY, ADIFF, APTT, MDW, GFR, CMP, PRO, TROPHS, PBNP, CBC #### [address] [address] Neutrophils/100 WBC (Bld) 59.2 % Normal 50.0-75.0 [facility] Comment on above: Performed By: #### A KIMBERLY, ADIFF, APTT, MDW, GFR, CMP, PRO, TROPHS, PBNP, CBC #### [address] [address] .GFRon 10-17-2024 Estimated Glomerular Filtration Rate 108 ml/min/1.73sqm Normal [facility] Comment on above: Result Comment: Stages of Chronic Kidney Disease (CKD) Stage Description eGFR(ml/min/1.73 sq.m.) CKD 1 Normal kidney function or >=90 normal kindney function with possible kidney damage (ex. Proteinuria) CKD 2 Kidney damage with mild loss 60-89 of kidney function CKD 3a Mild to moderate loss of kidney 45-59 function CKD 3b Moderate to severe loss of 30-44 of kindey function CKD 4 Severe loss of kidney function 15-29 CKD 5 Kidney failure <15 Note: (go live 2024) the eGFR calculation was updated to the 2020 CKD-EPI creatinine equation without a race factor to calculate the eGFR results. Performed By: #### A KIMBERLY, ADIFF, APTT, MDW, GFR, CMP, PRO, TROPHS, PBNP, CBC ####[address] [address] .MDWon 10-17-2024 Monocyte Distribution Width 17.69 Normal 0.00-20.00 [facility] Comment on above: Result Comment: For ED adult patients suspected of sepsis, MDW<=20.0 does not rule out sepsis or risk of sepsis Performed By: #### A KIMBERLY, ADIFF, APTT, MDW, GFR, CMP, PRO, TROPHS, PBNP, CBC #### [address] [address] .NEUABSon 10-17-2024 Neutrophil, Absolute 3.5 10 3/mcL Normal 2.3-8.1 [facility] Comment on above: Performed By: #### A KIMBERLY, ADIFF, APTT, MDW, GFR, CMP, PRO, TROPHS, PBNP, CBC #### [address] [address] APTTon 10-17-2024 aPTT Coag (Bld) [Time] 30.6 s Normal 25.0-35.0 [facility] Comment on above: Result Comment: For Heparin anticoagulation therapy, the recommended therapeutic range is: 45.4-75.9 seconds. Patients on heparin therapy may have an extreme result. Performed By: #### A KIMBERLY, ADIFF, APTT, MDW, GFR, CMP, PRO, TROPHS, PBNP, CBC #### [place] [id number] CBCon 10-17-2024 Erythrocyte distribution width (RBC) [Ratio] 13.3 % Normal 11.5-15.5 [facility] Comment on above: Performed By: #### A KIMBERLY, ADIFF, APTT, MDW, GFR, CMP, PRO, TROPHS, PBNP, CBC #### [place] [address] Hematocrit (Bld) [Volume fraction] 48.6 % Normal 40.0-52.0 [facility] Comment on above: Performed By: #### A KIMBERLY, ADIFF, APTT, MDW, GFR, CMP, PRO, TROPHS, PBNP, CBC #### [address] [address] Hgb 17.1 G/dL Normal 13.0-17.5 [facility] Comment on above: Performed By: #### A KIMBERLY, ADIFF, APTT, MDW, GFR, CMP, PRO, TROPHS, PBNP, CBC #### [address] [address] MCH (RBC) [Entitic mass] 33.9 pg High 27.0-33.0 [facility] Comment on above: Performed By: #### A KIMBERLY, ADIFF, APTT, MDW, GFR, CMP, PRO, TROPHS, PBNP, CBC #### [address] [address] MCHC 35.2 G/dL Normal 32.0-36.0 [facility] Comment on above: Performed By: #### A KIMBERLY, ADIFF, APTT, MDW, GFR, CMP, PRO, TROPHS, PBNP, CBC #### [address] [address] MCV (RBC) [Entitic vol] 96.3 fL Normal 81.0-100.[address] [facility] Comment on above: Performed By: #### A KIMBERLY, ADIFF, APTT, MDW, GFR, CMP, PRO, TROPHS, PBNP, CBC #### [address] [address] Platelet 164 10 3/mcL Normal 150-450 [facility] Comment on above: Performed By: #### A KIMBERLY, ADIFF, APTT, MDW, GFR, CMP, PRO, TROPHS, PBNP, CBC #### [address] [address] Platelet mean volume (Bld) [Entitic vol] 9.5 fL Normal 6.4-10.5 [facility] Comment on above: Performed By: #### A KIMBERLY, ADIFF, APTT, MDW, GFR, CMP, PRO, TROPHS, PBNP, CBC #### [address] [address] RBC 5.04 10 6/mcL Normal 4.50-6.00 [facility] Comment on above: Performed By: #### A KIMBERLY, ADIFF, APTT, MDW, GFR, CMP, PRO, TROPHS, PBNP, CBC #### [address] [address] WBC 5.9 10 3/mcL Normal 4.5-10.8 [facility] Comment on above: Performed By: #### A KIMBERLY, ADIFF, APTT, MDW, GFR, CMP, PRO, TROPHS, PBNP, CBC #### [address] [address] CMPon 10-17-2024 Albumin Level 3.8 G/dL Normal 3.5-5.0 [facility] Comment on above: Performed By: #### A KIMBERLY, ADIFF, APTT, MDW, GFR, CMP, PRO, TROPHS, PBNP, CBC #### [address] [address] Albumin/Globulin [Mass ratio] 1.2 {ratio} Normal 1.1-2.5 [facility] Comment on above: Performed By: #### A KIMBERLY, ADIFF, APTT, MDW, GFR, CMP, PRO, TROPHS, PBNP, CBC #### [address] [address] ALP [Catalytic activity/Vol] 63 U/L Normal 40-135 [facility] Comment on above: Performed By: #### A KIMBERLY, ADIFF, APTT, MDW, GFR, CMP, PRO, TROPHS, PBNP, CBC #### [place] [address] ALT [Catalytic activity/Vol] 31 U/L Normal 16-63 [facility] Comment on above: Performed By: #### A KIMBERLY, ADIFF, APTT, MDW, GFR, CMP, PRO, TROPHS, PBNP, CBC #### [place] [address] AST [Catalytic activity/Vol] 22 U/L Normal 10-40 [facility] Comment on above: Performed By: #### A KIMBERLY, ADIFF, APTT, MDW, GFR, CMP, PRO, TROPHS, PBNP, CBC #### [address] [address] Bili Total 0.6 mg/dL Normal 0.2-1.0 [facility] Comment on above: Result Comment: Use of this assay is not recommended for patients undergoing treatment with eltrombopag due to the potential for falsely elevated results. Performed By: #### A KIMBERLY, ADIFF, APTT, MDW, GFR, CMP, PRO, TROPHS, PBNP, CBC #### [place] [address] BUN/Creatinine Ratio 12 ratio Normal 7-27 [facility] Comment on above: Performed By: #### A KIMBERLY, ADIFF, APTT, MDW, GFR, CMP, PRO, TROPHS, PBNP, CBC #### [address] [address] Calcium [Mass/Vol] 8.9 mg/dL Normal 8.4-10.2 [facility] Comment on above: Performed By: #### A KIMBERLY, ADIFF, APTT, MDW, GFR, CMP, PRO, TROPHS, PBNP, CBC #### [place] [address] Chloride [Moles/Vol] 104 mmol/L Normal 98-107 [facility] Comment on above: Performed By: #### A KIMBERLY, ADIFF, APTT, MDW, GFR, CMP, PRO, TROPHS, PBNP, CBC #### [place] [address] CO2 [Moles/Vol] 28 mmol/L Normal 22-29 [facility] Comment on above: Performed By: #### A KIMBERLY, ADIFF, APTT, MDW, GFR, CMP, PRO, TROPHS, PBNP, CBC #### [place] [address] Creatinine [Mass/Vol] 0.89 mg/dL Normal 0.67-1.17 [facility] Comment on above: Performed By: #### A KIMBERLY, ADIFF, APTT, MDW, GFR, CMP, PRO, TROPHS, PBNP, CBC #### [place] [address] Electrolyte Balance 6.0 mEq/L Normal 4.0-15.0 [facility] Comment on above: Performed By: #### A KIMBERLY, ADIFF, APTT, MDW, GFR, CMP, PRO, TROPHS, PBNP, CBC #### [place] [address] Globulin 3.1 G/dL Normal 2.7-4.4 [facility] Comment on above: Performed By: #### A KIMBERLY, ADIFF, APTT, MDW, GFR, CMP, PRO, TROPHS, PBNP, CBC #### [place] [address] Glucose [Mass/Vol] 95 mg/dL Normal 70-105 [facility] Comment on above: Performed By: #### A KIMBERLY, ADIFF, APTT, MDW, GFR, CMP, PRO, TROPHS, PBNP, CBC #### [address] [address] Potassium [Moles/Vol] 4.3 mmol/L Normal 3.5-5.1 [facility] Comment on above: Performed By: #### A KIMBERLY, ADIFF, APTT, MDW, GFR, CMP, PRO, TROPHS, PBNP, CBC #### [address] [address] Sodium [Moles/Vol] 138 mmol/L Normal 136-145 [facility] Comment on above: Performed By: #### A KIMBERLY, ADIFF, APTT, MDW, GFR, CMP, PRO, TROPHS, PBNP, CBC #### [address] [address] Total Protein 6.9 G/dL Normal 6.4-8.2 [facility] Comment on above: Performed By: #### A KIMBERLY, ADIFF, APTT, MDW, GFR, CMP, PRO, TROPHS, PBNP, CBC #### [address] [address] Urea nitrogen [Mass/Vol] 11 mg/dL Normal 7-18 [facility] Comment on above: Performed By: #### A KIMBERLY, ADIFF, APTT, MDW, GFR, CMP, PRO, TROPHS, PBNP, CBC #### [address] [address] [address] ANGIOGRAPHY CHEST W/CONTR Iam 10-17-2024 CT ANGIOGRAPHY CHEST W/CONTRAST ORIGINAL EXAMINATION: CTA OF THE without then with CHEST10/17/2024 2:20 pm CTA CHEST WITH CONTRAST TECHNIQUE: CTA of the chest was performed after the administration of intravenous contrast. Multiplanar reformatted images are provided for review. MIP images are provided for review. Automated exposure control, iterative reconstruction, and/or weight based adjustment of the mA/kV was utilized to reduce the radiation dose to as low as reasonably achievable. CTA of the thorax was acquired in the axial plane. Coronal and sagittal reformatted images were reviewed. Three dimensional reconstructions were created on a separate workstation. COMPARISON: None HISTORY: ORDERING SYSTEM PROVIDED HISTORY: Reason for Exam: difficulty breathing; suspect DISSECTION. no hx of cancer. difficulty breathing; suspect DISSECTION FINDINGS: The heart size is normal; no pericardial effusion. There are no pathologically enlarged axillary, mediastinal or hilar lymph nodes. The aorta is normal in caliber. No intramural hematoma visualized. No dissections seen. A separate origin of the left vertebral artery from the aortic arch is noted. Trachea and central airways are patent. A 2 mm subpleural right upper lobe nodule seen image 22. No suspicious pulmonary nodules are identified. Bandlike areas of scarring/atelectasis visualized. No pulmonary consolidation identified. There is no pleural effusion or pneumothorax. No aggressive osseous lesions seen. Degenerative changes seen of the spine. A vague lesion is identified in the left hepatic lobe, measuring approximately 3.3 cm. Heterogeneous fatty infiltration of the liver is suspected. The abdomen is not evaluated in detail. IMPRESSION: No evidence of dissection Vague low-density lesion in the left hepatic lobe. It is unclear if this lesion relates to a hemangioma or other pathology. A follow-up MRI of the liver is advised Right solid pulmonary nodule within the upper lobe measuring 2 mm. Per Fleischner Society Guidelines, if patient is low risk for malignancy, no routine follow-up imaging is recommended. If patient is high risk for malignancy, a non-contrast Chest CT at 12 months is optional. If performed and the nodule is stable at 12 months, no further follow-up is recommended. These guidelines do not apply to immunocompromised patients and patients with cancer. Follow up in patients with significant comorbidities as clinically warranted. For lung cancer screening, adhere to Lung-RADS guidelines. Reference: Radiology. 2017; 284(1):228-43. Interpreted by: Arnold Dowell MD Preliminary Report By: Arnold Dowell MD Electronically signed By Arnold Dowell MD Dictated Date: 10/17/2024 2:29:00 PM Prelim Date: 10/17/2024 2:34:48 PM Sign Date: 10/17/2024 2:34:48 PM Ordering Provider: DAYAN KIDD [facility] CT ANGIOGRAPHY HEAD W/ CONTR Iam 10-17-2024 CT ANGIOGRAPHY HEAD W/ CONTRAST ORIGINAL EXAMINATION: CT Angiogram of the head with intravenous contrast TECHNIQUE: CT angiogram of the head was obtained. Sagittal and coronal reformations and maximum intensity projection reconstructions were provided. Images were obtained before and after the uneventful administration of IV contrast. 3D reformatted MIP images were provided One or more of the following dose reduction techniques were used: automated exposure control, adjustment of the mA and/or kV according to patient size, or use of iterative reconstruction technique. DICOM images are available. COMPARISON: Correlated with same day CTA neck HISTORY: ORDERING SYSTEM PROVIDED HISTORY: Reason for Exam: Dissection FINDINGS: Brain Parenchyma: No acute intracranial hemorrhage, midline shift, mass effect or transcortical ischemic infarct. The shen-white matter junctions are preserved. No space-occupying intra-axial masses or extra-axial fluid collections. Ventricles: No hydrocephalus or ventricular effacement. Paranasal sinuses: Right maxillary sinus retention cyst or polyp. Aplastic right and hypoplastic left frontal sinuses. Mastoid air cells: Clear. Bones: Normal. Additional comment: None. Cerebral angiogram Aneurysm: No aneurysm identified. Anterior circulation: Internal carotid arteries:No flow limiting stenosis Ophthalmic arteries:The bilateral proximal ophthalmic arteries are patent. Anterior cerebral arteries:No flow-limiting stenosis Middle cerebral arteries:No flow-limiting stenosis. Posterior cerebral arteries: origin of the left posterior cerebral artery. No significant flow-limiting stenosis. Anterior communicating artery:Present. Posterior communicating arteries:Present on the left. Aplastic or hypoplastic on the right. Posterior circulation: Basilar artery:No flow-limiting stenosis V3/V4 vertebral arteries:No significant flow-limiting stenosis. The left vertebral artery is hypoplastic and appears to terminate as PICA. The left PICA are is atretic Dural venous sinuses:Patent. IMPRESSION: 1. No large vessel occlusion, flow-limiting stenosis, aneurysm or dissection. 2. 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 3. origin of the left posterior cerebral artery. Interpreted by: Hudson Villagomez MD Preliminary Report By: Hudson Villagomez MD Electronically signed By Hudson Villagomez MD Dictated Date: 10/17/2024 1:48:07 PM Prelim Date: 10/17/2024 1:51:26 PM Sign Date: 10/17/2024 1:51:26 PM Ordering Provider: DAYAN KIDD [facility] CT ANGIOGRAPHY NECK W/CONTRA STon 10-17-2024 CT ANGIOGRAPHY NECK W/CONTRAST ORIGINAL EXAMINATION: CTA neck: TECHNIQUE: Contiguous spiral images were obtained in the axial plane, following the administration of intravenous contrast using CT angiographic protocol. Sagittal and coronal images were reconstructed from the axial plane acquisition. Additional 3D reformatted MIP reconstructions were presented to aid in the interpretation of this study. Images were obtained from the skull base through the upper lobes. One or more the following dose reduction techniques were used:automated exposure control, adjustment of the mA and/or kV according to patient size, or use of iterative reconstruction technique. Additional comment: None. 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 No stenosis or dissection. Right common carotid artery: No hemodynamically significant flow-limiting stenosis or dissection. Right internal carotid artery: No hemodynamically significant flow-limiting stenosis or dissection. Right external carotid artery: No hemodynamically significant flow-limiting stenosis. Left common carotid artery: No hemodynamically significant flow-limiting stenosis or dissection. Left internal carotid artery: No hemodynamically significant flow-limiting stenosis or dissection. Left external carotid artery: No hemodynamically significant flow-limiting stenosis. V1/V2 vertebral arteries: Hypoplastic left vertebral artery. No hemodynamically significant flow-limiting stenosis or dissection. Vertebral artery dominance: Right. Neck Soft tissues: Normal. Bones: No acute osseous pathology or aggressive lesion. Straightening of the normal cervical lordosis without a significant listhesis. Mild disc height loss involves C5-C6 and C6-C7. Lung apices: Refer to same day separately reported CT thorax IMPRESSION: 1. No hemodynamically significant flow-limiting stenosis or dissection. 2. 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 Interpreted by: Hudson Villagomez MD Preliminary Report By: Hudson Villagomez MD Electronically signed By Hudson Villagomez MD Dictated Date: 10/17/2024 1:42:56 PM Prelim Date: 10/17/2024 1:48:02 PM Sign Date: 10/17/2024 1:48:02 PM Ordering Provider: DAYAN KIDD [facility] LABORATORYOrdered By: SYSTEM SYSTEM on 10-17-2024 Albumin BCP dye [Mass/Vol] 3.8 G/dL Normal 3.5 - 5.0 G/dL AO ADM SS Albumin/Globulin [Mass ratio] 1.2 {ratio} Normal 1.1 - 2.5 ratio AO ADM SS ALP [Catalytic activity/Vol] 63 U/L Normal 40 - 135 U/L AO ADM SS ALT With P-5'-P [Catalytic activity/Vol] 31 U/L Normal 16 - 63 U/L AO ADM SS aPTT Coag (PPP) [Time] 30.6 s Normal 25.0 - 35.0 seconds AO [facility] SS Comment on above: Interpretive Data: F or Heparin anticoagulation therapy, the recommended therapeutic range is: 45.4-75.9 seconds. Patients on heparin therapy may have an extreme result. AST With P-5'-P [Catalytic activity/Vol] 22 U/L Normal 10 - 40 U/L AO ADM SS Basophils (Bld) [#/Vol] 0.0 103/mcL Normal 0.0 - 0.3 10^3/mcL AO Workflow SS Basophils/100 WBC (Bld) 0.8 % Normal 0.0 - 2.5 % AO Workflow SS Bilirubin [Mass/Vol] 0.6 mg/dL Normal 0.2 - 1 .0 mg/dL AO ADM SS Comment on above: Interpretive Data: U se of this assay is not recommended for patients undergoing treatment with eltrombopag due to the potential for falsely elevated results. Calcium [Mass/Vol] 8.9 mg/dL Normal 8.4 - 10. 2 mg/dL AO ADM SS Chloride [Moles/Vol] 104 mmol/L Normal 98 - 10 7 mmol/L AO ADM SS CO2 [Moles/Vol] 28 mmol/L Normal 22 - 29 mmol/L AO ADM SS Creatinine [Mass/Vol] 0.89 mg/dL Normal 0.67 - 1.17 mg/dL AO ADM SS Electrolyte Balance 6.0 mEq/L Normal 4.0 - 15 .0 mEq/L AO ADM SS Eosinophil, Absolute 0.1 103/mcL Normal 0.0 - 0 .7 10^3/mcL AO Workflow SS Eosinophils/100 WBC (Bld) 1.8 % Normal 0.0 - 6.0 % AO Workflow SS Erythrocyte distribution width (RBC) [Ratio] 13.3 % Normal 11.5 - 15.5 % AO Workflow SS Estimated Glomerular Filtration Rate 108 ml/min/1.73sqm Invalid Interpretation Code AO Chemistry S Comment on above: Interpretive Data: Stages of Chronic Kidney Disease (CKD) Stage Description eGFR(ml/min/1.73 sq.m.) CKD 1 Normal kidney function or >=90 normal kindney function with possible kidney damage (ex. Proteinuria) CKD 2 Kidney damage with mild loss 60-89 of kidney function CKD 3a Mild to moderate loss of kidney 45-59 function CKD 3b Moderate to severe loss of 30-44 of kindey function CKD 4 Severe loss of kidney function 15-29 CKD 5 Kidney failure <15 Note: (go live 2024) the eGFR calculation was updated to the 2020 CKD-EPI creatinine equation without a race factor to calculate the eGFR results. Globulin 3.1 G/dL Normal 2.7 - 4.4 G/dL AO ADM SS Glucose [Mass/Vol] 95 mg/dL Normal 70 - 105 mg/dL AO ADM SS Hematocrit (Bld) [Volume fraction] 48.6 % Normal 40.0 - 52.0 % AO Workflow SS Hemoglobin (Bld) [Mass/Vol] 17.1 G/dL Normal 13.0 - 17.5 G/dL AO Workflow SS INR Coag (PPP) [Relative time] 1.0 {INR} Invalid Interpretation Code AO [facility] SS Comment on above: Interpretive Data: Anayeli mathur [employer] (CHEST, 1991, 102:312S-25S) recommended therapeutic range for oral anticoagulant therapy is: LOW RISK: Prophylaxis of venous thrombosis INR: 2.0-3.0 Treatment of pulmonary embolism 2.0-3.0 Prevention of systemic embolism 2.0-3.0 HIGH RISK: Mechanical prosthetic valves 2.5-3.5 Lymphocytes (Bld) [#/Vol] 1.8 103/mcL Normal 0.9 - 4.3 10^3/mcL AO Workflow SS Lymphocytes/100 WBC (Bld) 31.0 % Normal 20.0 - 40.0 % AO Workflow SS MCH (RBC) [Entitic mass] 33.9 pg High 27. 0 - 33.0 pg AO Workflow SS MCHC 35.2 G/dL Normal 32.0 - 36.0 G/dL AO Workflow SS MCV (RBC) [Entitic vol] 96.3 fL Normal 81.0 - 100.0 fL AO Workflow SS Monocyte distribution width Auto (Bld) [Entitic vol] 17.69 1 Normal 0.00 - 20.00 AO Workflow SS Comment on above: Result Comment: For ED adult patients suspected of sepsis, MDW<=20.0 does not rule out sepsis or risk of sepsis Monocytes (Bld) [#/Vol] 0.4 103/mcL Normal 0.1 - 1.4 10^3/mcL AO Workflow SS Monocytes/100 WBC (Bld) 7.2 % Normal 2.0 - 13.0 % AO Workflow SS Natriuretic peptide.B prohormone N-Terminal [Mass/Vol] 15 pg/mL Normal 0 - 125 pg/mL AO ADM SS Comment on above: Interpretive Data: N T-proBNP results of less than 300 pg/mL effectively rules out acute congestive heart failure with 99% negative predictive value. Neutrophils (Bld) [#/Vol] 3.5 103/mcL Normal 2.3 - 8.1 10^3/mcL AO Workflow SS Neutrophils/100 WBC (Bld) 59.2 % Normal 50.0 - 75.0 % AO Workflow SS Platelet mean volume (Bld) [Entitic vol] 9.5 fL Normal 6.4 - 10.5 fL AO Workflow SS Platelets (Bld) [#/Vol] 164 103/mcL Normal 150 - 450 10^3/mcL AO Workflow SS Potassium [Moles/Vol] 4.3 mmol/L Normal 3.5 - 5.1 mmol/L AO ADM SS Protein [Mass/Vol] 6.9 G/dL Normal 6.4 - 8.2 G/dL AO ADM SS PT Coag (PPP) [Time] 10.9 s Normal 9.0 - 1 4.4 seconds AO [facility] SS RBC (Bld) [#/Vol] 5.04 106/mcL Normal 4.50 - 6.0 0 10^6/mcL AO Workflow SS Sodium [Moles/Vol] 138 mmol/L Normal 136 - 145 mmol/L AO ADM SS Troponin I.cardiac DL <= 0.01 ng/mL [Mass/Vol] 5 ng/L Normal 0 - 76 ng/L AO ADM SS Comment on above: Interpretive Data: H igh Sensitive Troponin I Reference Ranges: Female: 0-51 ng/L Male: 0-76 ng/L Testing performed on bttn using a homogeneous sandwich chemiluminescent immunoassay based on [employer]. Urea nitrogen [Mass/Vol] 11 mg/dL Normal 7 - 18 mg/dL AO ADM SS Urea nitrogen/Creatinine [Mass ratio] 12 ratio Normal 7 - 27 ratio AO ADM SS WBC (Bld) [#/Vol] 5.9 103/mcL Normal 4.5 - 10.8 10^3/mcL AO Workflow SS PBNPon 10-17-2024 Natriuretic peptide B (Bld) [Mass/Vol] 15 pg/mL Normal 0-125 [facility] Comment on above: Result Comment: NT-p roBNP results of less than 300 pg/mL effectively rules out acute congestive heart failure with 99% negative predictive value. Performed By: #### A KIMBERLY, ADIFF, APTT, MDW, GFR, CMP, PRO, TROPHS, PBNP, CBC ####[id number] [place], [place] [address] PROon 10-17-2024 PT Coag (PPP) [Time] 10.9 s Normal 9.0-14.4 [facility] Comment on above: Performed By: #### A KIMBERLY, ADIFF, APTT, MDW, GFR, CMP, PRO, TROPHS, PBNP, CBC #### [id number] [place], [place] [address] PT International Ratio 1.0 Normal [facility] Comment on above: Result Comment: [employer] (CHEST, 1992, 102:312S-25S) recommended therapeutic range for oral anticoagulant therapy is: LOW RISK: Prophylaxis of venous thrombosis INR: 2.0-3.0 Treatment of pulmonary embolism 2.0-3.0 Prevention of systemic embolism 2.0-3.0 HIGH RISK: Mechanical prosthetic valves 2.5-3.5 Performed By: #### A KIMBERLY, ADIFF, APTT, MDW, GFR, CMP, PRO, TROPHS, PBNP, CBC #### [id number] [place], [place] [address] TROPHSon 10-17-2024 High Sensitivity Troponin I 5 ng/L Normal 0-76 [facility] Comment on above: Result Comment: High Sensitive Troponin I Reference Ranges: Female: 0-51 ng/L Male: 0-76 ng/L Testing performed on bttn using a homogeneous sandwich chemiluminescent immunoassay based on [employer] technology. Performed By: #### A KIMBERLY, ADIFF, APTT, MDW, GFR, CMP, PRO, TROPHS, PBNP, CBC ####[id number] [place], [place] [address] 12 Lead EKGon 10-15-[address] [facility] [address] [place] [address] 12 Lead EKG 10/15/24 1231 MR#: [id number] Acct: [id number] Name: ANDREW MCLEAN Jr. Rep #: [id number] : 1980 44 From: Yoshi Catalan MD Attending Dr: Status: DEP ER Ordering Dr: Fallon Kinney Date: 10/15/24 Location: ED Sex: M C Admitted: Test Reason : CP Blood Pressure : */* mmHG Vent. Rate : 72 BPM Atrial Rate : 72 BPM P-R Int : 190 ms QRS Dur : 82 ms QT Int : 390 ms P-R-T Axes : 51 24 36 degrees QTcB Int : 427 ms Normal sinus rhythm Normal ECG Confirmed by LUDIVINA GUERRA, YOHSI ([id number]), editor greeting card ELIECER GUERRA ([id number]) on 10/17/2024 11:31:52 AM Referred By: Confirmed By: YOSHI CATALAN MD 10/17/24 1131 Date Yoshi Catalan MD CC: Dr. Kenny Wells DO; ZAHRAA Lind; No Primary Care Physician Signed Normal [facility] Absolute lymphocyte countOrd ered By: Fallon Kinney on 10-15-2024 Lymphocytes Auto (Unsp spec) [#/Vol] 1.89 10*3/uL 0.83-4.51 [facility] Absolute neutrophil countOrd ered By: Fallon Kinney on 10-15-2024 Neutrophils (Bld) [#/Vol] 5.2 10*3/uL 2.0-7.7 [facility] Anion gap in Serum or Plasma Ordered By: Fallon Kinney on 10-15-2024 Anion gap [Moles/Vol] 12 mmol/L 5-15 [facility] Automated lymphocyte count a s percentage of total leukocytesOrdered By: Fallon Kinney on 10-15-2024 Lymphocytes/100 WBC Auto (Unsp spec) 24.5 % 19-41 [facility] BUN/creatinine ratioOrdered By: Fallon Kinney on 10-15-2024 Urea nitrogen/Creatinine [Mass ratio] 11.1 mg/mg 10-20 [facility] Basophil percentageOrdered B y: Fallon Kinney on 10-15-2024 Basophils/100 WBC (Bld) 0.8 % 0-1 [facility] Bilirubin, totalOrdered By: Fallon Kinney on 10-15-2024 Bilirubin [Mass/Vol] 0.60 mg/dL 0.00-1.30 [facility] CBC W/Diff, Automatedon 10-04 Absolute Lymph 1.89 X10 3/uL Normal 0.83-4.51 [facility] Comment on above: Performed By: #### L 501.4021, L500.4050, L100.0100 #### [facility] [address] [place], [address] Absolute Neut 5.2 X10 3/uL Normal 2.0-7.7 [facility] Comment on above: Performed By: #### L 501.4021, L500.4050, L100.0100 #### [facility] [address] [place], [address] Basophils/100 WBC (Bld) 0.8 % Normal 0-1 [facility] Comment on above: Performed By: #### L 501.4021, L500.4050, L100.0100 #### [facility] [address] [place], [address] Eosinophils/100 WBC (Bld) 1.0 % Normal 0-5 [facility] Comment on above: Performed By: #### L 501.4021, L500.4050, L100.0100 #### [facility] [address] [place], [address] Erythrocyte distribution width (RBC) [Ratio] 12.4 % Normal 11.6-14.6 [facility] Comment on above: Performed By: #### L 501.4021, L500.4050, L100.0100 #### [facility] [address] [place], [address] Hematocrit (Bld) [Volume fraction] 50.9 % Normal 40-54 [facility] Comment on above: Performed By: #### L 501.4021, L500.4050, L100.0100 #### [facility] [address] [place], [address] Hemoglobin (Bld) [Mass/Vol] 17.8 g/dL High 13.0-16.5 [facility] Comment on above: Performed By: #### L 501.4021, L500.4050, L100.0100 #### [facility] [address] [place], [address] IG% 0.400 Normal 0.0-0.9 [facility] Comment on above: Result Comment: IG% - Immature Granulocytes (promyelocytes, myelocytes and metamyelocytes) > 1% indicates that a LEFT SHIFT is Present. Performed By: #### L 501.4021, L500.4050, L100.0100 #### [facility] [address] [place], [address] Lymphocytes/100 WBC (Bld) 24.5 % Normal 19-41 [facility] Comment on above: Performed By: #### L 501.4021, L500.4050, L100.0100 #### [facility] [address] [place], [address] MCH (RBC) [Entitic mass] 33.5 pg High 27.0-32.0 [facility] Comment on above: Performed By: #### L 501.4021, L500.4050, L100.0100 #### [facility] [address] [place], [address] MCHC (RBC) [Mass/Vol] 35.0 g/dL Normal 32-36 [facility] Comment on above: Performed By: #### L 501.4021, L500.4050, L100.0100 #### [facility] [address] [place], [address] MCV (RBC) [Entitic vol] 95.7 fL High 80-94 [facility] Comment on above: Performed By: #### L 501.4021, L500.4050, L100.0100 #### [facility] [address] [place], [address] Monocytes/100 WBC (Bld) 6.0 % Normal 0-10 [facility] Comment on above: Performed By: #### L 501.4021, L500.4050, L100.0100 #### [facility] [address] [place], [address] Neutrophils/100 WBC (Bld) 67.3 % Normal 47-70 [facility] Comment on above: Performed By: #### L 501.4021, L500.4050, L100.0100 #### [facility] [address] [place], [address] Nucleated RBC (Bld) [#/Vol] 0 10*3/uL Normal 0-5 [facility] Comment on above: Performed By: #### L 501.4021, L500.4050, L100.0100 #### [facility] [address] [place], [address] Platelet mean volume (Bld) [Entitic vol] 11.3 fL Normal 6.2-12.0 [facility] Comment on above: Performed By: #### L 501.4021, L500.4050, L100.0100 #### [facility] [address] [place], [address] Platelets (Bld) [#/Vol] 209 10*3/uL Normal 150-450 [facility] Comment on above: Performed By: #### L 501.4021, L500.4050, L100.0100 #### [facility] [address] [place], [address] RBC (Bld) [#/Vol] 5.32 10*6/uL Normal 4.6-6.2 [facility] Comment on above: Performed By: #### L 501.4021, L500.4050, L100.0100 #### [facility] [address] [place], [address] RDW SD 43.6 fl Normal 35.1-43.9 [facility] Comment on above: Performed By: #### L 501.4021, L500.4050, L100.0100 #### [facility] [address] [place], [address] WBC (Bld) [#/Vol] 7.7 10*3/uL Normal 4.4-11.0 [facility] Comment on above: Performed By: #### L 501.4021, L500.4050, L100.0100 #### [facility] [address] [place], [address] CTA Chst, Abd, Pel W and/or WOon 10-15-2024 CTA Chst, Abd, Pel W and/or WO [facility] Imaging Services [address] [place] [address] CTA Chst, Abd, Pel W and/or WO MR#: [id number] Acct: [id number] Name: ANDREW MCLEAN Jr. Rep #: [id number] : 1980 M 44 From: Talisha Escobedo nd, MD PCP: Care Physician,No Primary Status: REG ER Study: CTA Chst, Abd, Pel W and/or WO Date of Exam: 0 10/15/24 Exam# [id number] Ordering Dr: Kenny Wells DO PROCEDURE: CTA CHST, ABD, PEL W AND/OR WO 10/15/2024 REASON FOR EXAM: CHEST AND ABDOMEN PAIN TECHNIQUE: CTA CHST, ABD, PEL W AND/OR WO coronal and Sagittal reconstruction series were provided, including MIP imaging One or more dose reduction techniques were used (e.g., Automated exposure control, adjustment of the mA and/or kV according to patient size, use of iterative reconstruction technique. CONTRAST: Isovue 370 VOLUME: 100 mL RADIATION DOSE SUMMARY: DLP: 1200 mGycm COMPARISON: CT abdomen pelvis 05/02/2024. FINDINGS: Visualization of the visceral organs is limited by coronal and sagittal MIP reconstruction. CHEST: Hardware: None. Mediastinum: No traumatic thoracic aortic injury or mediastinal hematoma. Heart: The heart is normal in size without pericardial effusion. The great vessels are normal in caliber. No significant coronary artery or thoracic aortic calcifications. Lungs and Airways: The central airways are grossly patent. No suspicious pulmonary mass, pleural effusion or pneumothorax. Bones: Grossly unremarkable. ABDOMEN AND PELVIS: Liver: The liver is normal in size without large suspicious mass. No biliary ductal dilation. Gallbladder: Grossly unremarkable. Spleen: Normal in size. Pancreas: Grossly unremarkable. Adrenals: No adrenal mass. Kidneys: Grossly unremarkable. Bladder: Decompressed. Reproductive Organs: Grossly unremarkable. Bowel: The bowel loops are nondilated. No ascites or free air. Prior appendectomy. Vasculature: The abdominal aorta is normal in caliber without ectasia or dissection. The origins of the celiac, SMA and SIERRA are widely patent. The bilateral renal arteries are widely patent. Bones: No obvious aggressive lesions. Mild lumbar spondylosis. CT/CTA Chst, Abd, Pel W and/or WO IMPRESSION: NO ACUTE TRAUMATIC FINDINGS AT THE CHEST, ABDOMEN OR PELVIS. Reading Location: [facility] CC: Dr. 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, [address] Albumin/Globulin [Mass ratio] 1.6 {ratio} Normal 0.9-2.4 [facility] Comment on above: Performed By: #### L 501.4021, L500.4050, L100.0100 #### [facility] [address] [place], [address] ALK PHOS 66 U/L Normal 40-129 [facility] Comment on above: Performed By: #### L 501.4021, L500.4050, L100.0100 #### [facility] [address] [place], [address] ALT [Catalytic activity/Vol] 32 U/L Normal <=46 [facility] Comment on above: Performed By: #### L 501.4021, L500.4050, L100.0100 #### [facility] [address] [place], [address] AST [Catalytic activity/Vol] 25 U/L Normal <=37 [facility] Comment on above: Performed By: #### L 501.4021, L500.4050, L100.0100 #### [facility] [address] [place], [address] Bilirubin [Mass/Vol] 0.60 mg/dL Normal 0.00-1.30 [facility] Comment on above: Performed By: #### L 501.4021, L500.4050, L100.0100 #### [facility] [address] [place], [address] BUN/CRE 11.1 RATIO Normal 10-20 [facility] Comment on above: Performed By: #### L 501.4021, L500.4050, L100.0100 #### [facility] [address] [place], [address] Calcium [Mass/Vol] 9.4 mg/dL Normal 7.6-11.0 [facility] Comment on above: Performed By: #### L 501.4021, L500.4050, L100.0100 #### [facility] [address] [place], [address] Chloride [Moles/Vol] 108 mmol/L Normal 98-108 [facility] Comment on above: Performed By: #### L 501.4021, L500.4050, L100.0100 #### [facility] [address] [place], [address] CO2 [Moles/Vol] 22.7 mmol/L Normal 21.0-32.0 [facility] Comment on above: Performed By: #### L 501.4021, L500.4050, L100.0100 #### [facility] [address] [place], [address] Creatinine [Mass/Vol] 0.96 mg/dL Normal 0.70-1.20 [facility] Comment on above: Performed By: #### L 501.4021, L500.4050, L100.0100 #### [facility] [address] [place], [address] ECRCL 97.17 ml/min Normal 50-250 [facility] Comment on above: Performed By: #### L 501.4021, L500.4050, L100.0100 #### [facility] [address] [place], [address] GAP 12 Normal 5-15 [facility] Comment on above: Performed By: #### L 501.4021, L500.4050, L100.0100 #### [facility] [address] [place], [address] GFR/1.73 sq M.predicted among non-blacks MDRD (S/P/Bld) [Vol rate/Area] 100 mL/min/{1.73_m2} Normal >60 [facility] Comment on above: Result Comment: mL/m in/1.73m2 CKD-EPI Creatinine Equation (2020) Performed By: #### L 501.4021, L500.4050, L100.0100 #### [facility] [address] [place], [address] Globulin (S) [Mass/Vol] 2.9 g/dL Normal 2.2-4.2 [facility] Comment on above: Performed By: #### L 501.4021, L500.4050, L100.0100 #### [facility] [address] [place], [address] Glucose [Mass/Vol] 85 mg/dL Normal 70-99 [facility] Comment on above: Performed By: #### L 501.4021, L500.4050, L100.0100 #### [facility] [address] [place], [address] Potassium [Moles/Vol] 4.2 mmol/L Normal 3.3-5.1 [facility] Comment on above: Performed By: #### L 501.4021, L500.4050, L100.0100 #### [facility] [address] [place], [address] Sodium [Moles/Vol] 142 mmol/L Normal 133-145 [facility] Comment on above: Performed By: #### L 501.4021, L500.4050, L100.0100 #### [facility] [address] [place], [address] T PROT 7.5 g/dL Normal 5.9-8.4 [facility] Comment on above: Performed By: #### L 501.4021, L500.4050, L100.0100 #### [facility] [address] [place], [address] Urea nitrogen [Mass/Vol] 11 mg/dL Normal 4-19 [facility] Comment on above: Performed By: #### L 501.4021, L500.4050, L100.0100 #### [facility] [address] [place], [address] Emergency Department Summary on 10-15-2024 Emergency Department Summary [facility] Records Department [address] [place] [address] Emergency Department Summary 10/15/24 MR#: [id number] Acct: [id number] Name: ANDREW MCLEAN Jr. Rep #: [id number] : 1980 44 From: [place] PCP: Care Physician,No Primary Status:DEP ER Location: ED HPI History of Present Illness Chief Complaint: Chest Pain Narrative Narrative: 44-year-old male with past medical history of asthma, GI bleed, tobacco use presents with chest pain. States last evening he noted mild left-sided chest pain. This morning when he woke up the chest pain was sharp and more intense on the left side and he has been nauseated and vomited several times. The chest pain does not radiate anywhere. He has no jaw or arm pain. No shortness of breath. He has had a recent cough but denies fever or chills. He also has a history of GI bleed and had 2 episodes of bright red blood per rectum in the last day. States this occurred when he had the urge to have a bowel movement but all that came out was a small amount of dark red blood. He has no abdominal or rectal pain. He is not on blood thinners. He takes no medications. He had upper and lower scopes with Dr. Barfield in 2021 states he treated some area of bleeding. He denies history of DVT/PE, leg pain or swelling, recent surgery or travel, hemoptysis, hormone use PFSH PFSH Medical History Migraines Asthma Internal hemorrhage Hypertension Home Medications ???Medication ???Instructions ???Recorded ???Last Taken ???Type NK 10/15/24 Unknown History ondansetron HCl 4 mg tablet 4 mg PO Q6H PRN nausea and 5 Unknown Rx vomiting #12 tabs Allergy/AdvReac Type Severity Reaction Status Date / Time No Known Allergies Allergy Verified 10/15/24 12:07 Family History Other Liver cancer Ovarian cancer Surgical History History of appendectomy Social History household members: spouse Smoking Status: Light Smoker (<10/day) substance use type: does not use ROS ROS ED ROS Narrative Constitutional: Negative for fever, chills, malaise. CVS: Positive for chest pain. Negative for palpitations, syncope. Respiratory: Positive for cough. No shortness of breath. GI: Positive for nausea, vomiting. Negative for abdominal pain, melena, hematochezia. EXAM Physical Exam Narrative Exam Narrative: CONST: Patient sitting in no acute distress. EYES: Normal inspection. NECK: Normal inspection. RESP: No respiratory distress, CTAB. Tender over left chest wall. No deformity or crepitus. CVS: Regular rate and rhythm, no murmur, no gallop. ABD: Soft and nontender, no guarding or rebound, nondistended, no hepatosplenomegaly. SKIN: Color normal, no rash, warm, dry, intact. EXTREMITIES: Normal appearance, no pedal edema. NEURO: Alert and answering questions appropriately. PSYCH: Normal affect. Const Vital Signs: 10/15/24 12:05 10/15/24 12:38 10/15/24 12:43 Temperature 99.1 F Temperature Source Oral Pulse Rate 82 72 Respiratory Rate 16 16 Respiratory Effort Blood Pressure 110/100 H 135/96 H Blood Pressure Mean 103 109 Pulse Ox 98 99 Oxygen Delivery Method Room Air Room Air Room Air 10/15/24 12:43 10/15/24 12:45 10/15/24 12:52 Temperature Temperature Source Pulse Rate 77 Respiratory Rate 20 H Respiratory Effort Normal Non-Labored Blood Pressure 134/101 H Blood Pressure Mean 113 Pulse Ox 99 Oxygen Delivery Method 10/15/24 13:00 10/15/24 13:15 10/15/24 13:30 Temperature Temperature Source Pulse Rate 92 65 65 Respiratory Rate 22 H 10 L 11 L Respiratory Effort Blood Pressure 151/138 H 148/113 H 134/98 H Blood Pressure Mean 144 122 111 Pulse Ox 98 99 Oxygen Delivery Method 10/15/24 13:45 10/15/24 14:00 10/15/24 14:15 Temperature Temperature Source Pulse Rate 74 57 L 64 Respiratory Rate 12 14 12 Respiratory Effort Blood Pressure 134/104 H 132/102 H 147/93 H Blood Pressure Mean 114 112 111 Pulse Ox 97 97 99 Oxygen Delivery Method 10/15/24 14:30 10/15/24 14:45 10/15/24 15:00 Temperature Temperature Source Pulse Rate 60 62 62 Respiratory Rate 13 17 19 H Respiratory Effort Blood Pressure 134/98 H 135/97 H 137/97 H Blood Pressure Mean 110 110 110 Pulse Ox 98 98 98 Oxygen Delivery Method 10/15/24 15:18 Temperature 98.0 F Temperature Source Pulse Rate 78 Respiratory Rate 16 Respiratory Effort Blood Pressure 137/97 H Blood Pressure Mean 110 Pulse Ox 99 (more content not included)... Normal [facility] Eosinophil percentageOrdered By: Fallon Kinney on 10-15-2024 Eosinophils/100 WBC (Bld) 1.0 % 0-5 [facility] Erythrocyte distribution wid th ratioOrdered By: Fallon Kinney on 10-15-2024 Erythrocyte distribution width (RBC) [Ratio] 12.4 % 11.6-14.6 [facility] Erythrocyte distribution wid th standard deviationOrdered By: Fallon Kinney on 07-12-2025 Erythrocyte distribution width (RBC) [Ratio] 43.6 fl 35.1-43.9 [facility] Glomerular filtration rate ( GFR) estimation/1.73 sq m using serum, plasma, or whole bOrdered By: Fallon Kinney on 10-15-2024 GFR/1.73 sq M.predicted among non-blacks MDRD (S/P/Bld) [Vol rate/Area] 100 mL/min/{1.73_m2} >60 [facility] Comment on above: mL/min/1.73m2 CKD-EP I Creatinine Equation (2020) Hematocrit Auto (Bld) [Volum e fraction]Ordered By: Fallon Kinney on 10-15-2024 Hematocrit (Bld) [Volume fraction] 50.9 % 40-54 [facility] Hemoglobin measurementOrdere d By: Fallon Kinney on 10-15-2024 Hemoglobin (Bld) [Mass/Vol] 17.8 g/dL High 13.0-16.5 [facility] Immature granulocytes/100 WB C Auto (Bld)Ordered By: Fallon Kinney on 10-15-2024 Immature granulocytes/100 WBC (Bld) 0.400 % 0.0-0.9 [facility] Comment on above: IG% - Immature Granu locytes (promyelocytes, myelocytes and metamyelocytes) > 1% indicates that a LEFT SHIFT is Present. L499.0042on 10-15-2024 Trop T High Sen < 6 Normal <=22 [facility] Comment on above: Result Comment: Hemo lysis present, Results??could be affected. ?? Performed By: #### L 499.0042 #### [facility] [address] [place], [address] L499.0043on 10-15-2024 Trop T High Sen Normal <=22 [facility] Comment on above: Result Comment: Dory gruber via OM: Ordered Performed By: #### L 499.0043 ####[facility] [address] [place], [address] L501.4021on 10-15-2024 Trop T High Sen < 6 Normal <=22 [facility] Comment on above: Performed By: #### L 501.4021, L500.4050, L100.0100 #### [facility] [address] [employer], [place], [id number] Laboratory - Chemistry and C hemistry - challengeOrdered By: Fallon Kinney on 10-15-2024 AST [Catalytic activity/Vol] 25 U/L <38 [facility] MCV (mean corpuscular volume ) determinationOrdered By: Fallon Kinney on 10-15-2024 MCV (RBC) [Entitic vol] 95.7 fL High 80-94 [facility] Mean corpuscular hemoglobin (MCH) determinationOrdered By: Fallon Kinney on 10-15-2024 MCH (RBC) [Entitic mass] 33.5 pg High 27.0-32.0 [facility] Mean corpuscular hemoglobin concentration (MCHC) determinationOrdered By: Fallon Kinney on 10-15-2024 MCHC (RBC) [Mass/Vol] 35.0 g/dL 32-36 [facility] Mean platelet volume determi nationOrdered By: Fallon Kinney on 10-15-2024 Platelet mean volume (Bld) [Entitic vol] 11.3 fL 6.2-12.0 [facility] Monocyte percentageOrdered B y: Fallon Kinney on 10-15-2024 Monocytes/100 WBC (Bld) 6.0 % 0-10 [facility] Neutrophil percentageOrdered By: Fallon Kinney on 10-15-2024 Neutrophils/100 WBC (Bld) 67.3 % 47-70 [facility] Nucleated red blood cell per centageOrdered By: Fallon Kinney on 10-15-2024 Nucleated RBC/100 WBC (Bld) [Ratio] 0 % 0-5 [facility] Platelet countOrdered By: Beatris Kinney on 10-15-2024 Platelets (Bld) [#/Vol] 209 10*3/uL 150-450 [facility] Potassium measurement (mass/ volume)Ordered By: Fallon Kinney on 10-15-2024 Potassium (Unsp spec) [Mass/Vol] 4.2 mmol/L 3.3-5.1 [facility] RBC Auto (Bld) [#/Vol]Ordere d By: Fallon Kinney on 10-15-2024 RBC (Bld) [#/Vol] 5.32 10*6/uL 4.6-6.2 [facility] Serum creatinine measurement (mass/volume)Ordered By: Fallon Kinney on 10-15-2024 Creatinine [Mass/Vol] 0.96 mg/dL 0.70-1.20 [facility] Serum globulin measurementOr dered By: Fallon Kinney on 10-15-2024 Globulin (S) [Mass/Vol] 2.9 g/dL 2.2-4.2 [facility] Serum glucose measurement (m ass/volume)Ordered By: Fallon Kinney on 10-15-2024 Glucose [Mass/Vol] 85 mg/dL 70-99 [facility] Serum or plasma alanine huggins otransferase (ALT) measurementOrdered By: Fallon Kinney on 10-15-2024 ALT [Catalytic activity/Vol] 32 U/L <47 [facility] Serum or plasma albumin zo urement (mass/volume)Ordered By: Fallon Kinney on 10-15-2024 Albumin [Mass/Vol] 4.7 g/dL 3.5-5.0 [facility] Serum or plasma albumin/glob ulin mass ratioOrdered By: Fallon Kinney on 10-15-2024 Albumin/Globulin [Mass ratio] 1.6 {ratio} 0.9-2.4 [facility] Serum or plasma alkaline cy sphatase measurementOrdered By: Fallon Kinney on 10-15-2024 ALP [Catalytic activity/Vol] 66 U/L 40-129 [facility] Serum or plasma calcium zo urement (mass/volume)Ordered By: Fallon Kinney on 10-15-2024 Calcium [Mass/Vol] 9.4 mg/dL 7.6-11.0 [facility] Serum or plasma urea nitroge n measurement (mass/volume)Ordered By: Fallon Kinney on 10-15-2024 Urea nitrogen [Mass/Vol] 11 mg/dL 4-19 [facility] Sodium levelOrdered By: Fallon Kinney on 10-15-2024 Sodium [Moles/Vol] 142 mmol/L 133-145 [facility] Total proteinOrdered By: Birgit Kinney on 10-15-2024 Protein [Mass/Vol] 7.5 g/dL 5.9-8.4 [facility] Troponin T.cardiac [Mass/vol ume] in Serum or Plasma by High sensitivity methodOrdered By: Fallon Kinney on 10-15-2024 Troponin T.cardiac High sensitivity method [Mass/Vol] < 6 ng/L <22 [facility] Comment on above: Hemolysis present, R esults could be affected. Troponin T.cardiac High sensitivity method [Mass/Vol] < 6 ng/L <22 [facility] White blood cell (WBC) count Ordered By: Fallon Kinney on 10-15-2024 WBC (Bld) [#/Vol] 7.7 10*3/uL 4.4-11.0 [facility] Abdomen/Pelvis W IV Cont ONL Yon 05-02-2024 Abdomen/Pelvis W IV Cont ONLY [facility] Services [address] [place] [address] Abdomen/Pelvis W IV Cont ONLY MR#: [id number] Acct: [id number] Name: ANDREW MCLEAN Rep #: [id number] : 1980 M 44 From: Jamee Bell PCP: Care Physician,No Primary Status: REG ER Study: Abdomen/Pelvis W IV Cont ONLY Date of Exam: Exam# [id number] Ordering Dr: Rhett Tyler [place] [id number] EXAM: CT Abdomen And Pelvis W/ Contrast [...] 4:14 EST Reading Location ID and State: [facility] Tel , Service support , CC: Dr. 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, [address] Absolute Neut 3.9 X10 3/uL Normal 2.0-7.7 [facility] Comment on above: Performed By: #### L 501.2450, L500.4050, M100.7900, L100.0100 #### [facility] [address] [place], [address] Basophils/100 WBC (Bld) 0.7 % Normal 0-1 [facility] Comment on above: Performed By: #### L 501.2450, L500.4050, M100.7900, L100.0100 #### [facility] [address] [place], [address] Eosinophils/100 WBC (Bld) 1.3 % Normal 0-5 [facility] Comment on above: Performed By: #### L 501.2450, L500.4050, M100.7900, L100.0100 #### [facility] [address] [place], [address] Erythrocyte distribution width (RBC) [Ratio] 12.0 % Normal 11.6-14.6 [facility] Comment on above: Performed By: #### L 501.2450, L500.4050, M100.7900, L100.0100 #### [facility] [address] [place], [address] Hematocrit (Bld) [Volume fraction] 49.2 % Normal 40-54 [facility] Comment on above: Performed By: #### L 501.2450, L500.4050, M100.7900, L100.0100 #### [facility] [address] [place], [address] Hemoglobin (Bld) [Mass/Vol] 17.9 g/dL High 13.0-16.5 [facility] Comment on above: Performed By: #### L 501.2450, L500.4050, M100.7900, L100.0100 #### [facility] [address] [place], [address] IG% 0.300 Normal 0.0-0.9 [facility] Comment on above: Result Comment: IG% - Immature Granulocytes (promyelocytes, myelocytes and metamyelocytes) > 1% indicates that a LEFT SHIFT is Present. Performed By: #### L 501.2450, L500.4050, M100.7900, L100.0100 #### [facility] [address] [place], [address] Lymphocytes/100 WBC (Bld) 51.0 % High 19-41 [facility] Comment on above: Performed By: #### L 501.2450, L500.4050, M100.7900, L100.0100 #### [facility] [address] [place], [address] MCH (RBC) [Entitic mass] 33.4 pg High 27.0-32.0 [facility] Comment on above: Performed By: #### L 501.2450, L500.4050, M100.7900, L100.0100 #### [facility] [address] [place], [address] MCHC (RBC) [Mass/Vol] 36.4 g/dL High 32-36 [facility] Comment on above: Performed By: #### L 501.2450, L500.4050, M100.7900, L100.0100 #### [facility] [address] [place], [address] MCV (RBC) [Entitic vol] 91.8 fL Normal 80-94 [facility] Comment on above: Performed By: #### L 501.2450, L500.4050, M100.7900, L100.0100 #### [facility] [address] [place], [address] Monocytes/100 WBC (Bld) 6.4 % Normal 0-10 [facility] Comment on above: Performed By: #### L 501.2450, L500.4050, M100.7900, L100.0100 #### [facility] [address] [place], [address] Neutrophils/100 WBC (Bld) 40.3 % Low 47-70 [facility] Comment on above: Performed By: #### L 501.2450, L500.4050, M100.7900, L100.0100 #### [facility] [address] [place], [address] Nucleated RBC (Bld) [#/Vol] 0 10*3/uL Normal 0-5 [facility] Comment on above: Performed By: #### L 501.2450, L500.4050, M100.7900, L100.0100 #### [facility] [address] [place], [address] Platelet mean volume (Bld) [Entitic vol] 11.6 fL Normal 6.2-12.0 [facility] Comment on above: Performed By: #### L 501.2450, L500.4050, M100.7900, L100.0100 #### [facility] [address] [place], [address] Platelets (Bld) [#/Vol] 221 10*3/uL Normal 150-450 [facility] Comment on above: Performed By: #### L 501.2450, L500.4050, M100.7900, L100.0100 #### [facility] [address] [place], [address] RBC (Bld) [#/Vol] 5.36 10*6/uL Normal 4.6-6.2 [facility] Comment on above: Performed By: #### L 501.2450, L500.4050, M100.7900, L100.0100 #### [facility] [address] [place], [address] RDW SD 40.3 fl Normal 35.1-43.9 [facility] Comment on above: Performed By: #### L 501.2450, L500.4050, M100.7900, L100.0100 #### [facility] [address] [place], [address] WBC (Bld) [#/Vol] 9.8 10*3/uL Normal 4.4-11.0 [facility] Comment on above: Performed By: #### L 501.2450, L500.4050, M100.7900, L100.0100 #### [facility] [address] [place], [address] Comprehensive Metabolic Prof ilon 05-02-2024 Albumin [Mass/Vol] 4.4 g/dL Normal 3.2-5.0 [facility] Comment on above: Performed By: #### L 501.2450, L500.4050, M100.7900, L100.0100 ####[facility] [address] [place], [address] Albumin/Globulin [Mass ratio] 1.3 {ratio} Normal 0.9-2.4 [facility] Comment on above: Performed By: #### L 501.2450, L500.4050, M100.7900, L100.0100 ####[facility] [address] [place], [address] ALK P 56 U/L Normal 45-117 [facility] Comment on above: Performed By: #### L 501.2450, L500.4050, M100.7900, L100.0100 ####[facility] [address] [place], [address] ALT [Catalytic activity/Vol] 56 U/L Normal 16-61 [facility] Comment on above: Performed By: #### L 501.2450, L500.4050, M100.7900, L100.0100 ####[facility] [address] [place], [address] AST [Catalytic activity/Vol] 25 U/L Normal 15-37 [facility] Comment on above: Performed By: #### L 501.2450, L500.4050, M100.7900, L100.0100 ####[facility] [address] [place], [address] Bilirubin [Mass/Vol] 0.60 mg/dL Normal 0.20-1.00 [facility] Comment on above: Result Comment: For patients on eltrombopag therapy, use of Dimension Criders TBIL is not recommended. Performed By: #### L 501.2450, L500.4050, M100.7900, L100.0100 ####[facility] [address] [place], [address] BUN/CRE 9.5 RATIO Low 10-20 [facility] Comment on above: Performed By: #### L 501.2450, L500.4050, M100.7900, L100.0100 ####[facility] [address] [place], [address] CA,Total 9.2 mg/dL Normal 8.5-10.1 [facility] Comment on above: Performed By: #### L 501.2450, L500.4050, M100.7900, L100.0100 ####[facility] [address] [place], [address] Chloride [Moles/Vol] 112 mmol/L High 98-107 [facility] Comment on above: Performed By: #### L 501.2450, L500.4050, M100.7900, L100.0100 ####[facility] [address] [place], [address] CO2 [Moles/Vol] 24.0 mmol/L Normal 21.0-32.0 [facility] Comment on above: Performed By: #### L 501.2450, L500.4050, M100.7900, L100.0100 ####[facility] [address] [place], [address] Creatinine [Mass/Vol] 0.95 mg/dL Normal 0.70-1.30 [facility] Comment on above: Result Comment: The validity of the calculated GFR GFRAA in patients over 70 years has not been determined. Clinical correlation is essential. Performed By: #### L 501.2450, L500.4050, M100.7900, L100.0100 ####[facility] [address] [place], [address] ECRCL 107.03 ml/min Normal [facility] Comment on above: Performed By: #### L 501.2450, L500.4050, M100.7900, L100.0100 ####[facility] [address] [place], [address] EST GFR - AA 110 mL/min Normal >60 [facility] Comment on above: Result Comment: Afri can Norwegian GFR Calc Performed By: #### L 501.2450, L500.4050, M100.7900, L100.0100 ####[facility] [address] [place], [address] GAP 7 Normal 5-15 [facility] Comment on above: Performed By: #### L 501.2450, L500.4050, M100.7900, L100.0100 ####[facility] [address] [place], [address] GFR/1.73 sq M.predicted among non-blacks MDRD (S/P/Bld) [Vol rate/Area] 91 mL/min/{1.73_m2} Normal >60 [facility] Comment on above: Result Comment: Non- GFR Calc Performed By: #### L 501.2450, L500.4050, M100.7900, L100.0100 ####[facility] [address] [place], [address] Globulin (S) [Mass/Vol] 3.5 g/dL Normal 2.2-4.2 [facility] Comment on above: Performed By: #### L 501.2450, L500.4050, M100.7900, L100.0100 ####[facility] [address] [place], [address] Glucose [Mass/Vol] 80 mg/dL Normal 74-106 [facility] Comment on above: Performed By: #### L 501.2450, L500.4050, M100.7900, L100.0100 ####[facility] [address] [place], [address] Potassium [Moles/Vol] 3.9 mmol/L Normal 3.5-5.1 [facility] Comment on above: Performed By: #### L 501.2450, L500.4050, M100.7900, L100.0100 ####[facility] [address] [place], [address] Sodium [Moles/Vol] 143 mmol/L Normal 136-145 [facility] Comment on above: Performed By: #### L 501.2450, L500.4050, M100.7900, L100.0100 ####[facility] [address] [place], [address] T PROT 7.9 g/dL Normal 6.4-8.2 [facility] Comment on above: Performed By: #### L 501.2450, L500.4050, M100.7900, L100.0100 ####[facility] [address] [place], [address] Urea nitrogen [Mass/Vol] 9 mg/dL Normal 7-18 [facility] Comment on above: Performed By: #### L 501.6570, L500.4050, M100.7900, L100.0100 ####[facility] [address] [place], [address] Emergency Department Summary on 05-02-2024 Emergency Department Summary [facility] [facility] [address] [place] [address] Emergency Department Summary 05/02/24 MR#: [id number] Acct: [id number] Name: ANDREW MCLEAN Jr. Rep #: [id number] : 1980 44 From: Rhett Tyler DO PCP: Care Physician,No Primary Status:DEP ER Location: ED HPI HPI - GI History of Present Illness Chief Complaint: GI Bleed Informant: patient Abdominal Pain/Flank Pain Onset: Days (2) Context: Gradual Onset Timing: Continuous Quality: Sharp Location: RUQ and RLQ Worsened by: - (Standing) Relieved by: Nothing Nausea/Vomiting/Emesis GI Symptom: Positive for Nausea; Negative for Vomiting Diarrhea/Melena/Hemato chezia GI Symptom: Positive for Melena Onset: Days [...] hematuria but denies any dysuria or frequency. [facility] Medical History Migraines Asthma Internal hemorrhage Hypertension Home Medications ???Medication ???Instructions ???Recorded ???Last Taken ???Type hydrocortisone 2.5 % topical cream 1 applic [place] QHS #30 grams 01/07/22 Unknown Rx with [...] regular rhy (more content not included)... Normal [facility] Lipaseon 05-02-2024 Lipase [Catalytic activity/Vol] 42 U/L Normal 13-75 [facility] Comment on above: Result Comment: Barbara mason note: LIPASE revised reference range effective 22. New Lipase methodology. Expected to produce lower values than the previous assay method. NEW Reference Range: 13 - 75 U/L Performed By: #### L 501.2450, L500.4050, M100.7900, L100.0100 ####[facility] [id number] [place], [address] Partial Thromboplast Timeon 05-02-2024 aPTT Coag (Bld) [Time] 29.0 s Normal 24.1-36.2 [facility] Comment on above: Performed By: #### L 300.4310, L300.3900 #### [facility] [address] [place], [address] Prothrombin Time w/INRon INR Coag (PPP) [Relative time] 0.9 {INR} Normal [facility] Comment on above: Performed By: #### L 300.4310, L300.3900 #### [facility] [address] [place], [address] PT Coag (PPP) [Time] 12.7 s Normal 11.7-14.9 [facility] Comment on above: Performed By: #### L 300.4310, L300.3900 #### [facility] [address] [place], [address] Stool Occult Blood iFOBon STOB Positive Normal [facility] Comment on above: Performed By: #### L 501.2450, L500.4050, M100.7900, L100.0100 ####[facility] [id number] [place], [address] Absolute lymphocyte countOrd ered By: Divya Nobles on 04-16-2023 Lymphocytes Auto (Unsp spec) [#/Vol] 1.88 10*3/uL 0.83-4.51 [facility] Basophil percentageOrdered B y: Divya Nobles on 04-16-2023 Basophils/100 WBC (Bld) 0.4 % 0-1 [facility] Chloride [Moles/Vol] 106 mmol/L 98-107 [facility] Eosinophils/100 WBC (Bld) 0.3 % 0-5 [facility] Glucose [Mass/Vol] 107 mg/dL 74-106 [facility] Comment on above: Fasting Glucose resu lt from 100 to 125 mg/dL suggests IMPAIRED HOMEOSTASIS per A.D.A. criteria. Neutrophils (Bld) [#/Vol] 8.2 10*3/uL 2.0-7.7 [facility] Neutrophils/100 WBC (Bld) 75.6 % 47-70 [facility] Potassium [Moles/Vol] 3.3 mmol/L 3.5-5.1 [facility] Sodium [Moles/Vol] 138 mmol/L 136-145 [facility] WBC (Bld) [#/Vol] 10.8 10*3/uL 4.4-11.0 [facility] Blood erythrocytes count (nu mber/volume)Ordered By: Divya Nobles on 04-16-2023 RBC (Bld) [#/Vol] 5.26 10*6/uL 4.6-6.2 [facility] Blood hemoglobin measurement (mass/volume)Ordered By: Divya Nobles on 04-16-2023 Hemoglobin (Bld) [Mass/Vol] 17.2 g/dL 13.0-16.5 [facility] Blood lymphocytes/100 leukoc ytesOrdered By: Divya Nobles on 04-16-2023 Lymphocytes/100 WBC (Bld) 17.4 % 19-41 [facility] Blood monocytes/100 leukocyt esOrdered By: Diyva Nobles on 04-16-2023 Monocytes/100 WBC (Bld) 5.9 % 0-10 [facility] Blood platelet mean volumeOr dered By: Divya Nobles on 04-16-2023 Platelet mean volume (Bld) [Entitic vol] 11.3 fL 6.2-12.0 [facility] Determination of erythrocyte mean corpuscular volume (MCV)Ordered By: Divya Nobles on 04-16-2023 MCV (RBC) [Entitic vol] 94.5 fL 80-94 [facility] Hematocrit Auto (Bld) [Volum e fraction]Ordered By: Divya Nobles on 04-16-2023 Hematocrit (Bld) [Volume fraction] 49.7 % 40-54 [facility] - Chemistry and C hemistry - challengeOrdered By: Divya Nobles on 04-16-2023 CO2 [Moles/Vol] 26.0 mmol/L 21.0-32.0 [facility] Urea nitrogen/Creatinine [Mass ratio] 11.9 mg/mg 10-20 [facility] - Hematology and Cell countsOrdered By: Divya Nobles on 04-16-2023 Erythrocyte distribution width (RBC) [Entitic vol] 42.5 fL 35.1-43.9 [facility] Erythrocyte distribution width (RBC) [Ratio] 12.3 % 11.6-14.6 [facility] Immature granulocytes/100 WBC (Bld) 0.400 % 0.0-0.9 [facility] Comment on above: IG% - Immature Granu locytes (promyelocytes, myelocytes and metamyelocytes) > 1% indicates that a LEFT SHIFT is Present. MCH (RBC) [Entitic mass] 32.7 pg 27.0-32.0 [facility] Nucleated RBC/100 WBC (Bld) [Ratio] 0 % 0-5 [facility] [Mass/Vol]Or dered By: Divya Nobles on 04-16-2023 MCHC (RBC) [Mass/Vol] 34.6 g/dL 32-36 [facility] No Panel InformationOrdered By: Divya Nobles on 04-16-2023 D-Dimer Quantitative (PE/DVT) 0.47 FEU/ug/m 0.27-0.49 [facility] Comment on above: NORMAL D-Dimer level (<0.50) indicates no DVT or PE. Estimated Creatinine Clearance Calc 93.33 ml/min [facility] Estimated GFR (MDRD) Amer 103 mL/min >60 [facility] Comment on above: GFR Calc Estimated GFR (MDRD) Non-Af Amer 85 mL/min >60 [facility] Comment on above: Non- GFR Calc Troponin I High Sensitivity 5 pg/mL 3.0-78.0 [facility] Comment on above: Please Note: New Dona t Units and Gender Specific Reference Ranges. For more information see Policy Stat Procedure Criders High Sensitivity Troponin (TNIH) and attachments. Platelets bldOrdered By: Saba Nobles on 04-16-2023 Platelets (Bld) [#/Vol] 189 10*3/uL 150-450 [facility] Serum or plasma calcium zo urement (mass/volume)Ordered By: Divya Nobles on 04-16-2023 Calcium [Mass/Vol] 9.7 mg/dL 8.5-10.1 [facility] Serum or plasma creatinine m easurement (mass/volume)Ordered By: Divya Nobles on 04-16-2023 Creatinine [Mass/Vol] 1.01 mg/dL 0.70-1.30 [facility] Comment on above: The validity of the calculated GFR & GFRAA in patients over 70 years has not been determined. Clinical correlation is essential. Serum or plasma urea nitroge n measurement (mass/volume)Ordered By: Divya Nobles on 04-16-2023 Urea nitrogen [Mass/Vol] 12 mg/dL 7-18 [facility] Thin prep Papanicolaou smear with manual screeningOrdered By: Divya Nobles on 04-16-2023 Thin prep Papanicolaou smear with manual screening 6 5-15 [facility] - Microbiology an d Antimicrobial susceptibilityOrdered By: Christiano Garcia on 04-10-2023 SARS-CoV-2 (COVID-19) RNA WARNER+probe Ql (Unsp spec) Influenzae A [facility] SARS-CoV-2 (COVID-19) RNA WARNER+probe Ql (Unsp spec) Influenzae A [facility] Basophil percentageon 2021 WBC (Bld) [#/Vol] 8.9 10*3/uL 4.4-11.0 [facility] Work Phone: Blood erythrocytes count (nu mber/volume)on 03-03-2022 RBC (Bld) [#/Vol] 5.33 10*6/uL 4.6-6.2 [facility] Work Phone: Blood hemoglobin measurement (mass/volume)on 03-03-2022 Hemoglobin (Bld) [Mass/Vol] 18.4 g/dL 13.0-16.5 [facility] Work Phone: Comment on above: CRITICAL VALUE VERIF IED. CALLED TO [id number] Lindsay Sood.RESULTS READ BACK BY SAME . Blood platelet mean volumeon 03-03-2022 Platelet mean volume (Bld) [Entitic vol] 11.6 fL 6.2-12.0 [facility] Work Phone: Determination of erythrocyte mean corpuscular volume (MCV)on 03-03-2022 MCV (RBC) [Entitic vol] 97.2 fL 80-94 [facility] Work Phone: Hematocrit Auto (Bld) [Volum e fraction]on 03-03-2022 Hematocrit (Bld) [Volume fraction] 51.8 % 40-54 [facility] Work Phone: INR in Blood by Coagulation assayon 03-03-2022 INR Coag (Bld) [Relative time] 1.0 {INR} [facility] Work Phone: Laboratory - Coagulationon 1 05-03-2021 PT Coag (PPP) [Time] 12.6 s 11.7-14.9 [facility] Work Phone: Laboratory - Hematology and Cell countson 03-03-2022 Erythrocyte distribution width (RBC) [Entitic vol] 44.8 fL 35.1-43.9 [facility] Work Phone: Erythrocyte distribution width (RBC) [Ratio] 12.5 % 11.6-14.6 [facility] Work Phone: MCH (RBC) [Entitic mass] 34.5 pg 27.0-32.0 [facility] Work Phone: MCHC Auto (RBC) [Mass/Vol]on 03-03-2022 MCHC (RBC) [Mass/Vol] 35.5 g/dL 32-36 [facility] Work Phone: Platelets bldon 03-03-2022 Platelets (Bld) [#/Vol] 262 10*3/uL 150-450 [facility] Work Phone: Review by pathologiston 02-05 Pathologist review Steve (Unsp spec) [Interp] August [facility] Work Phone: Absolute lymphocyte counton 01-07-2022 Lymphocytes Auto (Unsp spec) [#/Vol] 2.25 10*3/uL 0.83-4.51 [facility] Work Phone: Basophil percentageon 2021 Basophil percentage 2.8 mg/dL 2.5-4.9 [facility] Work Phone: Basophils/100 WBC (Bld) 1.0 % 0-1 [facility] Work Phone: Chloride [Moles/Vol] 115 mmol/L 98-107 [facility] Work Phone: Eosinophils/100 WBC (Bld) 3.5 % 0-5 [facility] Work Phone: Glucose [Mass/Vol] 85 mg/dL 74-106 [facility] Work Phone: Neutrophils (Bld) [#/Vol] 2.4 10*3/uL 2.0-7.7 [facility] Work Phone: Neutrophils/100 WBC (Bld) 45.7 % 47-70 [facility] Work Phone: Potassium [Moles/Vol] 3.8 mmol/L 3.5-5.1 [facility] Work Phone: Sodium [Moles/Vol] 143 mmol/L 136-145 [facility] Work Phone: WBC (Bld) [#/Vol] 5.2 10*3/uL 4.4-11.0 [facility] Work Phone: Blood erythrocytes count (nu mber/volume)on 01-07-2022 RBC (Bld) [#/Vol] 4.19 10*6/uL 4.6-6.2 [facility] Work Phone: Blood hemoglobin measurement (mass/volume)on 01-07-2022 Hemoglobin (Bld) [Mass/Vol] 14.8 g/dL 13.0-16.5 [facility] Work Phone: Blood lymphocytes/100 leukoc yteson 01-07-2022 Lymphocytes/100 WBC (Bld) 43.4 % 19-41 [facility] Work Phone: Blood monocytes/100 leukocyt eson 01-07-2022 Monocytes/100 WBC (Bld) 6.2 % 0-10 [facility] Work Phone: Blood platelet mean volumeon 01-07-2022 Platelet mean volume (Bld) [Entitic vol] 11.5 fL 6.2-12.0 [facility] Work Phone: Determination of erythrocyte mean corpuscular volume (MCV)on 01-07-2022 MCV (RBC) [Entitic vol] 99.0 fL 80-94 [facility] Work Phone: Hematocrit Auto (Bld) [Volum e fraction]on 01-07-2022 Hematocrit (Bld) [Volume fraction] 41.5 % 40-54 [facility] Work Phone: [phone] Laboratory - Chemistry and C hemistry - challengeon 01-07-2022 CO2 [Moles/Vol] 24.0 mmol/L 21.0-32.0 [facility] Work Phone: [phone] Magnesium [Mass/Vol] 2.2 mg/dL 1.6-2.6 [facility] Work Phone: [phone] Urea nitrogen/Creatinine [Mass ratio] 7.4 mg/mg 10-20 [facility] Work Phone: [phone] Laboratory - Hematology and Cell countson 01-07-2022 Erythrocyte distribution width (RBC) [Entitic vol] 44.6 fL 35.1-43.9 [facility] Work Phone: [phone] Erythrocyte distribution width (RBC) [Ratio] 12.4 % 11.6-14.6 [facility] Work Phone: [phone] Immature granulocytes/100 WBC (Bld) 0.200 % 0.0-0.9 [facility] Work Phone: [phone] Comment on above: IG% - Immature Granu locytes (promyelocytes, myelocytes and metamyelocytes) > 1% indicates that a LEFT SHIFT is Present. MCH (RBC) [Entitic mass] 35.3 pg 27.0-32.0 [facility] Work Phone: [phone] Nucleated RBC/100 WBC (Bld) [Ratio] 0 % 0-5 [facility] Work Phone: [phone] MCHC Auto (RBC) [Mass/Vol]on 01-07-2022 MCHC (RBC) [Mass/Vol] 35.7 g/dL 32-36 [facility] Work Phone: [phone] Panel Informationon 01-07 Estimated Creatinine Clearance Calc 92.00 ml/min [facility] Work Phone: [phone] Estimated GFR (MDRD) Amer 96 mL/min >60 [facility] Work Phone: Comment on above: GFR Calc Estimated GFR (MDRD) Non-Af Amer 79 mL/min >60 [facility] Work Phone: Comment on above: Non- GFR Calc Platelets bldon 01-07-2022 Platelets (Bld) [#/Vol] 182 10*3/uL 150-450 [facility] Work Phone: Serum or plasma calcium zo urement (mass/volume)on 01-07-2022 Calcium [Mass/Vol] 8.0 mg/dL 8.5-10.1 [facility] Work Phone: Serum or plasma creatinine m easurement (mass/volume)on 01-07-2022 Creatinine [Mass/Vol] 1.08 mg/dL 0.70-1.30 [facility] Work Phone: Comment on above: The validity of the calculated GFR & GFRAA in patients over 70 years has not been determined. Clinical correlation is essential. Serum or plasma urea nitroge n measurement (mass/volume)on 01-07-2022 Urea nitrogen [Mass/Vol] 8 mg/dL 7-18 [facility] Work Phone: Thin prep Papanicolaou smear with manual screeningon 01-07-2022 Thin prep Papanicolaou smear with manual screening 4 5-15 [facility] Work Phone: Absolute lymphocyte counton 01-06-2022 Lymphocytes Auto (Unsp spec) [#/Vol] 2.14 10*3/uL 0.83-4.51 [facility] Work Phone: Basophil percentageon 2021 Amylase [Catalytic activity/Vol] 34 U/L 25-115 [facility] Work Phone: Basophils/100 WBC (Bld) 0.8 % 0-1 [facility] Work Phone: [phone] Bilirubin [Mass/Vol] 0.30 mg/dL 0.20-1.00 [facility] Work Phone: Comment on above: For patients on eltr ombopag therapy, use of Dimension Criders TBIL is not recommended. Chloride [Moles/Vol] 112 mmol/L 98-107 [facility] Work Phone: Eosinophils/100 WBC (Bld) 2.1 % 0-5 [facility] Work Phone: Glucose [Mass/Vol] 100 mg/dL 74-106 [facility] Work Phone: Comment on above: Fasting Glucose resu lt from 100 to 125 mg/dL suggests IMPAIRED HOMEOSTASIS per A.D.A. criteria. Neutrophils (Bld) [#/Vol] 3.5 10*3/uL 2.0-7.7 [facility] Work Phone: Neutrophils/100 WBC (Bld) 56.1 % 47-70 [facility] Work Phone: Potassium [Moles/Vol] 3.7 mmol/L 3.5-5.1 [facility] Work Phone: Comment on above: Slight Hemolysis, Re sult may be falsely increased. Protein [Mass/Vol] 7.7 g/dL 6.4-8.2 [facility] Work Phone: Sodium [Moles/Vol] 143 mmol/L 136-145 [facility] Work Phone: WBC (Bld) [#/Vol] 6.2 10*3/uL 4.4-11.0 [facility] Work Phone: Blood erythrocytes count (nu mber/volume)on 01-06-2022 RBC (Bld) [#/Vol] 4.59 10*6/uL 4.6-6.2 [facility] Work Phone: Blood hemoglobin measurement (mass/volume)on 01-06-2022 Hemoglobin (Bld) [Mass/Vol] 15.8 g/dL 13.0-16.5 [facility] Work Phone: Blood lymphocytes/100 leukoc yteson 01-06-2022 Lymphocytes/100 WBC (Bld) 34.6 % 19-41 [facility] Work Phone: Blood monocytes/100 leukocyt eson 01-06-2022 Monocytes/100 WBC (Bld) 6.1 % 0-10 [facility] Work Phone: Blood platelet mean volumeon 01-06-2022 Platelet mean volume (Bld) [Entitic vol] 11.8 fL 6.2-12.0 [facility] Work Phone: Determination of erythrocyte mean corpuscular volume (MCV)on 01-06-2022 MCV (RBC) [Entitic vol] 97.8 fL 80-94 [facility] Work Phone: Direct bilirubinon Bilirubin.direct [Mass/Vol] 0.16 mg/dL 0.00-0.30 [facility] Work Phone: Erythrocyte sedimentation ra evette 01-06-2022 ESR (Bld) [Velocity] 11 mm/h 0-20 [facility] Work Phone: Hematocrit Auto (Bld) [Volum e fraction]on 01-06-2022 Hematocrit (Bld) [Volume fraction] 44.9 % 40-54 [facility] Work Phone: INR in Blood by Coagulation assayon 01-06-2022 INR Coag (Bld) [Relative time] 1.1 {INR} [facility] Work Phone: Laboratory - Chemistry and C hemistry - challengeon 01-06-2022 Lipase [Catalytic activity/Vol] 193 U/L 73-393 [facility] Work Phone: ALP [Catalytic activity/Vol] 58 U/L 45-117 [facility] Work Phone: ALT [Catalytic activity/Vol] 60 U/L 16-61 [facility] Work Phone: CO2 [Moles/Vol] 25.0 mmol/L 21.0-32.0 [facility] Work Phone: Globulin (S) [Mass/Vol] 3.8 g/dL 2.2-4.2 [facility] Work Phone: [phone] Urea nitrogen/Creatinine [Mass ratio] 7.5 mg/mg 10-20 [facility] Work Phone: [phone] Laboratory - Coagulationon 1 aPTT Coag (Bld) [Time] 30.4 s 24.1-36.2 [facility] Work Phone: [phone] PT Coag (PPP) [Time] 13.5 s 11.7-14.9 [facility] Work Phone: [phone] Laboratory - Hematology and Cell countson 01-06-2022 Erythrocyte distribution width (RBC) [Entitic vol] 43.8 fL 35.1-43.9 [facility] Work Phone: [phone] Erythrocyte distribution width (RBC) [Ratio] 12.2 % 11.6-14.6 [facility] Work Phone: [phone] Immature granulocytes/100 WBC (Bld) 0.300 % 0.0-0.9 [facility] Work Phone: [phone] Comment on above: IG% - Immature Granu locytes (promyelocytes, myelocytes and metamyelocytes) > 1% indicates that a LEFT SHIFT is Present. MCH (RBC) [Entitic mass] 34.4 pg 27.0-32.0 [facility] Work Phone: [phone] Nucleated RBC/100 WBC (Bld) [Ratio] 0 % 0-5 [facility] Work Phone: [phone] MCHC Auto (RBC) [Mass/Vol]on 01-06-2022 MCHC (RBC) [Mass/Vol] 35.2 g/dL 32-36 [facility] Work Phone: No Panel Informationon 01-06 Estimated Creatinine Clearance Calc 82.80 ml/min [facility] Work Phone: [phone] Estimated GFR (MDRD) Amer 85 mL/min >60 [facility] Work Phone: [phone] Comment on above: GFR Calc Estimated GFR (MDRD) Non-Af Amer 70 mL/min >60 [facility] Work Phone: Comment on above: Non- GFR Calc Platelets bldon 01-06-2022 Platelets (Bld) [#/Vol] 219 10*3/uL 150-450 [facility] Work Phone: [phone] Serum or plasma C reactive p rotein measurement (mass/volume)on 01-06-2022 CRP [Mass/Vol] mg/L 0.0-3.0 [facility] Work Phone: Comment on above: C-Reactive Protein ( CRP) provides useful information for thediagnosis, therapy and monitoring of inflammatory processesand associated diseases. For the evaluation of Relative Riskfor Cardiovascular Disease, a High Sensitivity CRP (HSCRP)should be ordered. Serum or plasma albumin zo urement (mass/volume)on 01-06-2022 Albumin [Mass/Vol] 3.9 g/dL 3.2-5.0 [facility] Work Phone: Serum or plasma calcium zo urement (mass/volume)on 01-06-2022 Calcium [Mass/Vol] 8.9 mg/dL 8.5-10.1 [facility] Work Phone: Serum or plasma creatinine m easurement (mass/volume)on 01-06-2022 Creatinine [Mass/Vol] 1.20 mg/dL 0.70-1.30 [facility] Work Phone: Comment on above: The validity of the calculated GFR & GFRAA in patients over 70 years has not been determined. Clinical correlation is essential. Serum or plasma urea nitroge n measurement (mass/volume)on 01-06-2022 Urea nitrogen [Mass/Vol] 9 mg/dL 7-18 [facility] Work Phone: [phone] Thin prep Papanicolaou smear with manual screeningon 01-06-2022 Thin prep Papanicolaou smear with manual screening 280 U/L 87-241 [facility] Work Phone: [phone] Thin prep Papanicolaou smear with manual screening 28 U/L 15-37 [facility] Work Phone: [phone] Comment on above: Slight Hemolysis, Re sult may be falsely increased. Thin prep Papanicolaou smear with manual screening 6 5-15 [facility] Work Phone: Absolute lymphocyte counton 01-02-2022 Lymphocytes Auto (Unsp spec) [#/Vol] 2.63 10*3/uL 0.83-4.51 [facility] Work Phone: Basophil percentageon 2021 Basophils/100 WBC (Bld) 0.8 % 0-1 [facility] Work Phone: Eosinophils/100 WBC (Bld) 2.5 % 0-5 [facility] Work Phone: Neutrophils (Bld) [#/Vol] 3.2 10*3/uL 2.0-7.7 [facility] Work Phone: Neutrophils/100 WBC (Bld) 49.5 % 47-70 [facility] Work Phone: WBC (Bld) [#/Vol] 6.5 10*3/uL 4.4-11.0 [facility] Work Phone: Blood erythrocytes count (nu mber/volume)on 01-02-2022 RBC (Bld) [#/Vol] 4.47 10*6/uL 4.6-6.2 [facility] Work Phone: Blood hemoglobin measurement (mass/volume)on 01-02-2022 Hemoglobin (Bld) [Mass/Vol] 15.2 g/dL 13.0-16.5 [facility] Work Phone: Blood lymphocytes/100 leukoc yteson 01-02-2022 Lymphocytes/100 WBC (Bld) 40.8 % 19-41 [facility] Work Phone: Blood monocytes/100 leukocyt eson 01-02-2022 Monocytes/100 WBC (Bld) 5.9 % 0-10 [facility] Work Phone: Blood platelet mean volumeon 01-02-2022 Platelet mean volume (Bld) [Entitic vol] 13.0 fL 6.2-12.0 [facility] Work Phone: [phone] Determination of erythrocyte mean corpuscular volume (MCV)on 01-02-2022 MCV (RBC) [Entitic vol] 98.0 fL 80-94 [facility] Work Phone: [phone] Hematocrit Auto (Bld) [Volum e fraction]on 01-02-2022 Hematocrit (Bld) [Volume fraction] 43.8 % 40-54 [facility] Work Phone: [phone] Laboratory - Hematology and Cell countson 01-02-2022 Erythrocyte distribution width (RBC) [Entitic vol] 43.8 fL 35.1-43.9 [facility] Work Phone: [phone] Erythrocyte distribution width (RBC) [Ratio] 12.1 % 11.6-14.6 [facility] Work Phone: [phone] Immature granulocytes/100 WBC (Bld) 0.500 % 0.0-0.9 [facility] Work Phone: [phone] Comment on above: IG% - Immature Granu locytes (promyelocytes, myelocytes and metamyelocytes) > 1% indicates that a LEFT SHIFT is Present. MCH (RBC) [Entitic mass] 34.0 pg 27.0-32.0 [facility] Work Phone: [phone] Nucleated RBC/100 WBC (Bld) [Ratio] 0 % 0-5 [facility] Work Phone: [phone] MCHC Auto (RBC) [Mass/Vol]on 01-02-2022 MCHC (RBC) [Mass/Vol] 34.7 g/dL 32-36 [facility] Work Phone: [phone] Platelets bldon 01-02-2022 Platelets (Bld) [#/Vol] 172 10*3/uL 150-450 [facility] Work Phone: [phone] Basophil percentageon 2021 Chloride [Moles/Vol] 110 mmol/L 98-[address] [facility] Work Phone: [phone] Glucose [Mass/Vol] 83 mg/dL 74-106 [facility] Work Phone: [phone] Potassium [Moles/Vol] 3.6 mmol/L 3.5-5.1 [facility] Work Phone: Comment on above: Slight Hemolysis, Re sult may be falsely increased. Sodium [Moles/Vol] 141 mmol/L 136-145 [facility] Work Phone: Laboratory - Chemistry and C hemistry - challengeon 01-01-2022 CO2 [Moles/Vol] 26.0 mmol/L 21.0-32.0 [facility] Work Phone: Urea nitrogen/Creatinine [Mass ratio] 13.6 mg/mg 10-20 [facility] Work Phone: No Panel Informationon 01-01 Estimated Creatinine Clearance Calc 84.20 ml/min [facility] Work Phone: Estimated GFR (MDRD) Amer 87 mL/min >60 [facility] Work Phone: Comment on above: GFR Calc Estimated GFR (MDRD) Non-Af Amer 72 mL/min >60 [facility] Work Phone: Comment on above: Non- GFR Calc Serum or plasma calcium zo urement (mass/volume)on 01-01-2022 Calcium [Mass/Vol] 8.1 mg/dL 8.5-10.1 [facility] Work Phone: Serum or plasma creatinine m easurement (mass/volume)on 01-01-2022 Creatinine [Mass/Vol] 1.18 mg/dL 0.70-1.30 [facility] [facility] Work Phone: Comment on above: The validity of the calculated GFR & GFRAA in patients over 70 years has not been determined. Clinical correlation is essential. Serum or plasma urea nitroge n measurement (mass/volume)on 01-01-2022 Urea nitrogen [Mass/Vol] 16 mg/dL 7-18 [facility] Work Phone: Thin prep Papanicolaou smear with manual screeningon 01-01-2022 Thin prep Papanicolaou smear with manual screening 5 5-15 [facility] Work Phone: Absolute lymphocyte counton 12-31-2021 Lymphocytes Auto (Unsp spec) [#/Vol] 2.86 10*3/uL 0.83-4.51 [facility] Work Phone: Basophil percentageon 2021 Basophils/100 WBC (Bld) 0.7 % 0-1 [facility] Work Phone: Bilirubin [Mass/Vol] 0.60 mg/dL 0.20-1.00 [facility] Work Phone: Comment on above: For patients on eltr ombopag therapy, use of Dimension Criders TBIL is not recommended. Chloride [Moles/Vol] 106 mmol/L 98-107 [facility] Work Phone: Eosinophils/100 WBC (Bld) 1.5 % 0-5 [facility] Work Phone: Glucose [Mass/Vol] 85 mg/dL 74-106 [facility] Work Phone: Neutrophils (Bld) [#/Vol] 5.4 10*3/uL 2.0-7.7 [facility] Work Phone: Neutrophils/100 WBC (Bld) 59.2 % 47-70 [facility] Work Phone: Potassium [Moles/Vol] 3.6 mmol/L 3.5-5.1 [facility] Work Phone: Comment on above: Moderate Hemolysis, Result may be falsely increased. Protein [Mass/Vol] 7.6 g/dL 6.4-8.2 [facility] Work Phone: Sodium [Moles/Vol] 140 mmol/L 136-145 [facility] Work Phone: WBC (Bld) [#/Vol] 9.1 10*3/uL 4.4-11.0 [facility] Work Phone: Blood erythrocytes count (nu mber/volume)on 12-31-2021 RBC (Bld) [#/Vol] 4.91 10*6/uL 4.6-6.2 [facility] Work Phone: Blood hemoglobin measurement (mass/volume)on 12-31-2021 Hemoglobin (Bld) [Mass/Vol] 17.0 g/dL 13.0-16.5 [facility] Work Phone: Blood lymphocytes/100 leukoc yteson 12-31-2021 Lymphocytes/100 WBC (Bld) 31.3 % 19-41 [facility] Work Phone: Blood monocytes/100 leukocyt eson 12-31-2021 Monocytes/100 WBC (Bld) 6.9 % 0-10 [facility] Work Phone: Blood platelet mean volumeon 12-31-2021 Platelet mean volume (Bld) [Entitic vol] 12.6 fL 6.2-12.0 [facility] Work Phone: Determination of erythrocyte mean corpuscular volume (MCV)on 12-31-2021 MCV (RBC) [Entitic vol] 98.2 fL 80-94 [facility] Work Phone: Direct bilirubinon Bilirubin.direct [Mass/Vol] 0.09 mg/dL 0.00-0.30 [facility] Work Phone: Hematocrit Auto (Bld) [Volum e fraction]on 12-31-2021 Hematocrit (Bld) [Volume fraction] 48.2 % 40-54 [facility] Work Phone: INR in Blood by Coagulation assayon 12-31-2021 INR Coag (Bld) [Relative time] 1.0 {INR} [facility] Work Phone: Laboratory - Chemistry and C hemistry - challengeon 12-31-2021 ALP [Catalytic activity/Vol] 56 U/L 45-117 [facility] Work Phone: ALT [Catalytic activity/Vol] 66 U/L 16-61 [facility] Work Phone: CO2 [Moles/Vol] 26.0 mmol/L 21.0-32.0 [facility] Work Phone: Globulin (S) [Mass/Vol] 3.3 g/dL 2.2-4.2 [facility] Work Phone: [phone] Lipase [Catalytic activity/Vol] 134 U/L 73-393 [facility] Work Phone: [phone] Urea nitrogen/Creatinine [Mass ratio] 17.2 mg/mg 10-20 [facility] Work Phone: Laboratory - Coagulationon 0 12-31-2021 aPTT Coag (Bld) [Time] 31.5 s 24.1-36.2 Wo jony [facility] Work Phone: PT Coag (PPP) [Time] 12.7 s 11.7-14.9 [facility] Work Phone: Laboratory - Hematology and Cell countson 12-31-2021 Erythrocyte distribution width (RBC) [Entitic vol] 44.1 fL 35.1-43.9 [facility] Work Phone: [phone] Erythrocyte distribution width (RBC) [Ratio] 12.1 % 11.6-14.6 [facility] Work Phone: [phone] Immature granulocytes/100 WBC (Bld) 0.400 % 0.0-0.9 [facility] Work Phone: Comment on above: IG% - Immature Granu locytes (promyelocytes, myelocytes and metamyelocytes) > 1% indicates that a LEFT SHIFT is Present. MCH (RBC) [Entitic mass] 34.6 pg 27.0-32.0 [facility] Work Phone: Nucleated RBC/100 WBC (Bld) [Ratio] 0 % 0-5 [facility] Work Phone: [phone] MCHC Auto (RBC) [Mass/Vol]on 12-31-2021 MCHC (RBC) [Mass/Vol] 35.3 g/dL 32-36 [facility] Work Phone: No Panel Informationon 12-31 Estimated Creatinine Clearance Calc 77.63 ml/min [facility] Work Phone: Estimated GFR (MDRD) Amer 79 mL/min >60 [facility] Work Phone: Comment on above: GFR Calc Estimated GFR (MDRD) Non-Af Amer 65 mL/min >60 [facility] Work Phone: Comment on above: Non- GFR Calc Platelets bldon 12-31-2021 Platelets (Bld) [#/Vol] 177 10*3/uL 150-450 [facility] Work Phone: Serum or plasma albumin zo urement (mass/volume)on 12-31-2021 Albumin [Mass/Vol] 4.3 g/dL 3.2-5.0 [facility] Work Phone: Serum or plasma calcium zo urement (mass/volume)on 12-31-2021 Calcium [Mass/Vol] 9.6 mg/dL 8.5-10.1 [facility] Work Phone: Serum or plasma creatinine m easurement (mass/volume)on 12-31-2021 Creatinine [Mass/Vol] 1.28 mg/dL 0.70-1.30 [facility] Work Phone: Comment on above: The validity of the calculated GFR & GFRAA in patients over 70 years has not been determined. Clinical correlation is essential. Serum or plasma urea nitroge n measurement (mass/volume)on 12-31-2021 Urea nitrogen [Mass/Vol] 22 mg/dL 7-18 [facility] Work Phone: Thin prep Papanicolaou smear with manual screeningon 12-31-2021 Thin prep Papanicolaou smear with manual screening 33 U/L 15-37 [facility] Work Phone: Comment on above: Moderate Hemolysis, Result may be falsely increased. Thin prep Papanicolaou smear with manual screening 8 5-15 [facility] Work Phone: Absolute lymphocyte counton 12-02-2021 Lymphocytes Auto (Unsp spec) [#/Vol] 3.67 10*3/uL 0.83-4.51 [facility] Work Phone: Basophil percentageon 2021 Basophils/100 WBC (Bld) 0.9 % 0-1 [facility] Work Phone: Chloride [Moles/Vol] 103 mmol/L 98-107 [facility] Work Phone: Eosinophils/100 WBC (Bld) 1.2 % 0-5 [facility] Work Phone: Glucose [Mass/Vol] 89 mg/dL 74-106 [facility] Work Phone: Neutrophils (Bld) [#/Vol] 6.1 10*3/uL 2.0-7.7 [facility] Work Phone: Neutrophils/100 WBC (Bld) 57.0 % 47-70 [facility] Work Phone: Potassium [Moles/Vol] 3.8 mmol/L 3.5-5.1 [facility] Work Phone: Sodium [Moles/Vol] 138 mmol/L 136-145 [facility] Work Phone: WBC (Bld) [#/Vol] 10.6 10*3/uL 4.4-11.0 [facility] Work Phone: Blood erythrocytes count (nu mber/volume)on 12-02-2021 RBC (Bld) [#/Vol] 5.85 10*6/uL 4.6-6.2 [facility] Work Phone: Blood hemoglobin measurement (mass/volume)on 12-02-2021 Hemoglobin (Bld) [Mass/Vol] 20.8 g/dL 13.0-16.5 [facility] Work Phone: Comment on above: CRITICAL VALUE VERIF IED. CALLED TO MAKEDA SUNSHINE12/02/21 Alis Sweeney.RESULTS READ BACK BY SAME . Blood lymphocytes/100 leukoc yteson 12-02-2021 Lymphocytes/100 WBC (Bld) 34.5 % 19-41 [facility] Work Phone: Blood monocytes/100 leukocyt eson 12-02-2021 Monocytes/100 WBC (Bld) 6.1 % 0-10 [facility] Work Phone: Blood platelet mean volumeon 12-02-2021 Platelet mean volume (Bld) [Entitic vol] 11.6 fL 6.2-12.0 [facility] Work Phone: Determination of erythrocyte mean corpuscular volume (MCV)on 12-02-2021 MCV (RBC) [Entitic vol] 97.6 fL 80-94 [facility] Work Phone: Hematocrit Auto (Bld) [Volum e fraction]on 12-02-2021 Hematocrit (Bld) [Volume fraction] 57.1 % 40-54 [facility] Work Phone: INR in Blood by Coagulation assayon 12-02-2021 INR Coag (Bld) [Relative time] 1.0 {INR} [facility] Work Phone: Laboratory - Chemistry and C hemistry - challengeon 12-02-2021 CO2 [Moles/Vol] 28.0 mmol/L 21.0-32.0 [facility] Work Phone: Urea nitrogen/Creatinine [Mass ratio] 9.4 mg/mg 10-20 [facility] Work Phone: Laboratory - Coagulationon 0 12-02-2021 aPTT Coag (Bld) [Time] 29.3 s 24.1-36.2 [facility] Work Phone: PT Coag (PPP) [Time] 13.4 s 11.7-14.9 [facility] Work Phone: Laboratory - Hematology and Cell countson 12-02-2021 Erythrocyte distribution width (RBC) [Entitic vol] 43.5 fL 35.1-43.9 [facility] Work Phone: Erythrocyte distribution width (RBC) [Ratio] 11.9 % 11.6-14.6 [facility] Work Phone: [phone] Immature granulocytes/100 WBC (Bld) 0.300 % 0.0-0.9 [facility] Work Phone: [phone] Comment on above: IG% - Immature Granu locytes (promyelocytes, myelocytes and metamyelocytes) > 1% indicates that a LEFT SHIFT is Present. MCH (RBC) [Entitic mass] 35.6 pg 27.0-32.0 [facility] Work Phone: [phone] Nucleated RBC/100 WBC (Bld) [Ratio] 0 % 0-5 [facility] Work Phone: [phone] MCHC Auto (RBC) [Mass/Vol]on 12-02-2021 MCHC (RBC) [Mass/Vol] 36.4 g/dL 32-36 [facility] Work Phone: [phone] Panel Informationon 12-02 Troponin I High Sensitivity 5 pg/mL 3.0-78.0 [facility] Work Phone: [phone] Comment on above: Please Note: New Dona t Units and Gender Specific Reference Ranges. For more information see Policy Stat Procedure Criders High Sensitivity Troponin (TNIH) and attachments. Estimated Creatinine Clearance Calc 60.14 ml/min [facility] Work Phone: [phone] Estimated GFR (MDRD) Amer 61 mL/min >60 [facility] Work Phone: [phone] Comment on above: GFR Calc Estimated GFR (MDRD) Non-Af Amer 50 mL/min >60 [facility] Work Phone: [phone] Comment on above: Non- GFR Calc Platelets bldon 12-02-2021 Platelets (Bld) [#/Vol] 259 10*3/uL 150-450 [facility] Work Phone: [phone] Review by pathologiston 11-05 Pathologist review Steve (Unsp spec) [Interp] August [facility] Work Phone: [phone] Pathologist review Steve (Unsp spec) [Interp] Reviewed [facility] Work Phone: [phone] Comment on above: Previous reported re sult: Lianne thakkar Edited by: RGOOD on 12/03/21:1321Polycythemia MacrocytosisClinical correlation necessary.Zenon Alejo M.D. 12/03/21This case was reviewed with Dr. Stiles who concurs with the above diagnosis. AMENDED REPORT 12/03/21 1321 PATH REV previously reported as: Lianne thakkar Serum or plasma calcium zo urement (mass/volume)on 12-02-2021 Calcium [Mass/Vol] 10.6 mg/dL 8.5-10.1 [facility] Work Phone: Serum or plasma creatinine m easurement (mass/volume)on 12-02-2021 Creatinine [Mass/Vol] 1.60 mg/dL 0.70-1.30 [facility] Work Phone: Comment on above: The validity of the calculated GFR & GFRAA in patients over 70 years has not been determined. Clinical correlation is essential. Serum or plasma urea nitroge n measurement (mass/volume)on 12-02-2021 Urea nitrogen [Mass/Vol] 15 mg/dL 7-18 [facility] Work Phone: Thin prep Papanicolaou smear with manual screeningon 12-02-2021 Thin prep Papanicolaou smear with manual screening 7 - [facility] Work Phone: BMPon 03-19-2021 Anion gap [Moles/Vol] 10 mmol/L Normal 5-16 [facility] Comment on above: Order Comment: Campu s: M Performed By: #### L 500.50332, L500.99729, L500.24968, L500.87333 #### [facility] [address] [place] [address] Calcium [Mass/Vol] 10.3 mg/dL Normal 8.5-10.5 [facility] Comment on above: Order Comment: Campu s: M Result Comment: NOTE NEW NORMAL RANGE DUE TO REAGENT CHANGE Performed By: #### L 500.96906, L500.10742, L500.39920, L500.72435 #### [facility] [address] [place] [address] Chloride [Moles/Vol] 109 mmol/L High 98-107 [facility] Comment on above: Order Comment: Campu s: M Performed By: #### L 500.62596, L500.86834, L500.52705, L500.16717 #### [facility] [address] [place] [address] CO2 [Moles/Vol] 23.0 mmol/L Normal 21-32 [facility] Comment on above: Order Comment: Campu s: M Performed By: #### L 500.82648, L500.50005, L500.36813, L500.49791 #### [facility] [address] [place] [address] Creatinine [Mass/Vol] 0.85 mg/dL Normal 0.5-1.4 [facility] Comment on above: Order Comment: Campu s: M Result Comment: NOTE NEW NORMAL RANGE DUE TO REAGENT CHANGE Patients receiving either N-Acetylcysteine (NAC) or Metamizole prior to venipuncture, may have falsely depressed results. Performed By: #### L 500.62200, L500.99784, L500.52251, L500.70202 #### [facility] [address] [place] [address] Glucose [Mass/Vol] 94 mg/dL Normal 70-100 [facility] Comment on above: Order Comment: Campu s: M Result Comment: 70-1 00- Normal Fasting; 100-125 Impaired Fasting; greater than 126 on more than one result- Diabetes. ADA guidelines. Results may be falsely elevated after the administration of Sulfapyridine. Results may be falsely depressed after the administration of Sulfasalazine. Performed By: #### L 500.53525, L500.21052, L500.26263, L500.71791 #### [facility] [address] [place] [address] Potassium [Moles/Vol] 4.1 mmol/L Normal 3.5-5.1 [facility] Comment on above: Order Comment: Campu s: M Result Comment: Slig ht Hemolysis, Result may be affected. Performed By: #### L 500.19025, L500.85690, L500.13956, L500.93579 #### [facility] [address] [place] [address] Sodium [Moles/Vol] 142 mmol/L Normal 136-145 [facility] Comment on above: Order Comment: Campu s: M Performed By: #### L 500.00277, L500.16492, L500.47913, L500.17030 #### [facility] [place] [address] Urea nitrogen [Mass/Vol] 12 mg/dL Normal 7-26 [facility] Comment on above: Order Comment: Campu s: M Performed By: #### L 500.28021, L500.54321, L500.72460, L500.85644 #### [facility] [address] [place] [address] Urea nitrogen/Creatinine [Mass ratio] 14 mg/mg Low 15-24 [facility] Comment on above: Order Comment: Campu s: M Performed By: #### L 500.59967, L500.62959, L500.38722, L500.93256 #### [facility] [place] [address] CBC W/DIFFon 03-19-2021 BASO ABS 0.10 K/CU MM Normal 0-0.2 [facility] Comment on above: Order Comment: Campu s: M Performed By: #### L 200.71869 ####[facility] [id number] [place], [place] [address]Rf# [phone] Basophils/100 WBC (Bld) 1.1 % Normal 0-2 [facility] Comment on above: Order Comment: Campu s: M Performed By: #### L 200.16404 ####[facility] [id number] [place], [place] [address]Im# [phone] EOS ABS 0.10 K/CU MM Normal 0-0.5 [facility] Comment on above: Order Comment: Campu s: M Performed By: #### L 200.31596 ####[place] [address]Ph# [phone] Eosinophils/100 WBC (Bld) 1.2 % Normal 0-5 [facility]: Order Comment: Campu s: M Performed By: #### L 200.88672 ####[address] [address]Eu# [phone] Erythrocyte distribution width (RBC) [Ratio] 12.4 % Normal 11-14.5 [facility] Comment on above: Order Comment: Campu s: M Performed By: #### L 200.24752 ####[address] [address]Jg# [phone] Hematocrit (Bld) [Volume fraction] 48.9 % Normal 41.0-53.0 [facility] Comment on above: Order Comment: Campu s: M Performed By: #### L 200.54836 ####[facility] [id number] [place] [address]Ga# [phone] Hemoglobin (Bld) [Mass/Vol] 17.6 g/dL High 13.5-17.5 [facility] Comment on above: Order Comment: Campu s: M Performed By: #### L 200.83172 ####[facility] [id number] [place] [address]Do# [phone] IMMATR GRAN ABS 0.10 K/CU MM Normal Less than 2 [facility] Comment [facility] above: Order Comment: Campu s: M Performed By: #### L 200.43002 ####[facility] [id number] [place], [place] [address]Ph# [phone] IMMATURE GRAN % 1.0 % Normal Less than 2 [facility] Comment on above: Order Comment: Campu s: M Performed By: #### L 200.11368 ####[facility] [id number] [place] [address]Kk# [phone] LYMPH ABS 3.40 K/CU MM Normal 0.9-4.4 [facility] Comment on above: Order Comment: Campu s: M Performed By: #### L 200.94828 ####[place] [address]Ph# [phone] Lymphocytes/100 WBC (Bld) 46.3 % High 20-40 [facility] Comment on above: Order Comment: Campu s: M Performed By: #### L 200.34111 ####[place] [address]Ph# [phone] MCHC (RBC) [Mass/Vol] 36.0 g/dL Normal 32.0-36.0 [facility] Comment on above: Order Comment: Campu s: M Performed By: #### L 200.32866 ####[facility] [id number] [place] [address]Qd# [phone] MCV (RBC) [Entitic vol] 97.2 fL Normal 80.0-99.0 [facility] Comment on above: Order Comment: Campu s: M Performed By: #### L 200.35375 ####[facility] [id number] [place] [address]Kw# [phone] MONO ABS 0.50 K/CU MM Normal 0.1-1.1 [facility] Comment on above: Order Comment: Campu s: M Performed By: #### L 200.83885 ####[facility] [id number] [place] [address]Gw# [phone] Monocytes/100 WBC (Bld) 7.3 % Normal 2-10 M [facility] Comment on above: Order Comment: Campu s: M Performed By: #### L 200.34957 ####[facility] [id number] [place], [place] [address]Bc# [phone] NEUTROPHIL ABS 3.10 K/CU MM Normal 2.0-8.3 [facility] Comment on above: Order Comment: Campu s: M Performed By: #### L 200.01359 ####[facility] [id number] [place] [address]Si# [phone] Neutrophils/100 WBC (Bld) 43.1 % Low 45-75 [facility] Comment on above: Order Comment: Campu s: M Performed By: #### L 200.33726 ####[facility] [id number] [place] [address]Kc# [phone] Nucleated RBC/100 WBC (Bld) [Ratio] 0.0 % Normal Less than 1 [facility] Comment on above: Order Comment: Campu s: M Performed By: #### L 200.18433 ####[facility] [id number] [place] [address]Wm# [phone] Platelet mean volume (Bld) [Entitic vol] 12.1 fL Normal 9.4-12.4 [facility] Comment on above: Order Comment: Campu s: M Performed By: #### L 200.04205 ####[facility] [id number] [place] [address]Gl# [phone] PLT 171 K/CU MM Normal 150-450 [facility] Comment on above: Order Comment: Campu s: M Performed By: #### L 200.23520 ####[facility] [id number] [place] [address]Tj# [phone] RBC 5.03 M/CU MM Normal 4.50-6.00 [facility] Comment on above: Order Comment: Campu s: M Performed By: #### L 200.09820 ####[facility] [id number] [place], [place] [address]Ph# [phone] WBC 7.2 K/CUMM Normal 4.5-11.0 [facility] Comment on above: Order Comment: Eulalio ying: Gregory Performed By: #### L 200.40653 ####[facility] [id number] [place], [place] [address]Hq# [phone] CT ABD/PEL W IV CONTRAST ONL Yon 03-19-2021 CT ABD/PEL W IV CONTRAST ONLY [...] no inguinal pelvic retroperitoneal or mesenteric lymphadenopathy Peritoneum/retroperito neum:No ascites. No mesenteric inflammation Vascular:The celiac artery and superior mesenteric artery are patent. The aorta is normal in caliber. The portal vein and splenic vein are patent Osseous:No suspicious lytic or sclerotic osseous lesions. No compression fractures Superficial soft tissues:Unremarkable. The abdominal wall is intact Residential Glazier film:No additional abnormality IMPRESSION: No acute abnormality Hepatic steatosis This report was electronically signed by Mandeep Colmenares MD 03/19/2021 1:08 PM Reported By: MANDEEP COLMENARES M.D. Signed By: MANDEEP COLMENARES M.D. [facility] 03-19-2021 EMERGENCY PHYSICIAN REPORT This is a preliminary report only, as the practitioner review and authentication has not occurred. [facility] ER PHYSICIAN ASSESSMENT RECORDS : FlexChartData Event Time: 03/19/2021 11:15 Status: Signed [facility] Andrew Mclean [[id number]] Attending Physician 41 / M / 1980 Chart (V2b) Chart created at 03/19/2021 11:08 by Bryna Schuster Chart closed at 03/19/2021 13:58 Entry in Emergency Department at 03/19/2021 07:41, departure at 03/19/2021 14:06 Patient Name: Andrew Mclean Record Number: [id number] Date: 03/19/2021 11:08 Entered Department at: 03/19/2021 [...] not have any symptoms throughout the day [facility] PATIENT NAME: ANDREW MCLEAN [address] [facility] [address] Wagner MEDICAL REC #: [id number] [place] [address] EMERGENCY DEPARTMENT REPORT EMERGENCY DEPARTMENT PHYSICIAN yesterday, [...] information as of 03/19/2021, 8:47 am 142 --------+--------+---- ----andlt; 94 Anion Gap = 10 4.1 BUN/CREA: 14; CALCIUM TOTAL: 10.3 Mg/Dl [facility] PATIENT NAME: ANDREW MCLEAN [facility] Dr. Wagner MEDICAL REC #: [id number] [place] [address] EMERGENCY DEPARTMENT REPORT EMERGENCY DEPARTMENT PHYSICIAN CBC [...] information as of 03/19/2021, 8:47 am + +---------+ ---------+---------+-- -------+-------- + + +---------+ ---------+---------+-- -------+-------- + + +---------+ ---------+---------+-- -------+-------- + + +---------+ ---------+---------+-- -------+-------- + + +---------+ ---------+---------+-- -------+-------- + LIPASE, information as of 03/19/2021, 8:47 am LIPASE: 36 U/L LIVER, information as of 03/19/2021, 8:47 am A/G RATIO: 1.5; ALBUMIN: 4.5 Gm/Dl; ALK PHOS: 64 U/L; BILI DIRECT: 0.1 Mg/Dl; BILI TOTAL: 0.30 Mg/Dl; GLOBULIN: 3.0 Gm/Dl; SGOT (AST): 100 U/L; SGPT (ALT): 259 [facility] PATIENT NAME: ANDREW MCLEAN [address] [place] [address] Dr. Wagner MEDICAL REC #: [id number] [place] [address] EMERGENCY DEPARTMENT REPORT EMERGENCY DEPARTMENT PHYSICIAN U/L; TP: 7.5 Gm/Dl Imaging Study Obtained: CT ABD/PEL W IV CONTRAST ONLY Imaging Study Obtained: CT ABD/PEL W IV (more content not included)... Normal [facility] GFR ESTon 03-19-2021 IF AMER Greater than [address] [facility] Comment on above: Order Comment: Eulalio s: M Performed By: #### L 500.59222, L500.36918, L500.67297, L500.03858 #### [facility] [address] [place] [address] IF non-AFR AMER Greater than [address] [facility] Comment on above: Order Comment: Asifu s: M Performed By: #### L 500.80481, L500.16338, L500.48739, L500.03466 #### [facility] [place] [address] LIPASEon 03-19-2021 Lipase [Catalytic activity/Vol] 36 U/L Normal 12-60 [facility] Comment on above: Order Comment: Campu s: M Result Comment: NOTE NEW NORMAL RANGE DUE TO REAGENT CHANGE Performed By: #### L 500.75939, L500.24621, L500.98534, L500.48398 #### [facility] [address] [place] [address] LIVERon 03-19-2021 Albumin [Mass/Vol] 4.5 g/dL Normal 3.2-5.0 [facility] Comment on above: Order Comment: Campu s: M Performed By: #### L 500.05746, L500.09578, L500.71037, L500.08429 #### [facility] [address] [place] [address] Albumin/Globulin [Mass ratio] 1.5 {ratio} Normal 0.8-2.0 [facility] Comment on above: Order Comment: Campu s: M Performed By: #### L 500.16032, L500.79983, L500.70567, L500.72286 #### [facility] [address] [place] [address] ALK PHOS 64 U/L Normal 45-117 [facility] Comment on above: Order Comment: Campu s: M Performed By: #### L 500.30403, L500.34681, L500.15272, L500.68125 #### [facility] [address] [place], [place] [address] ALT [Catalytic activity/Vol] 259 U/L High 13-61 [facility] Comment on above: Order Comment: Campu s: M Result Comment: RESU LTS MAY BE FALSELY DEPRESSED AFTER THE ADMINISTRATION OF SULFASALAZINE AND/OR SULFAPYRIDINE. Performed By: #### L 500.14080, L500.35897, L500.64117, L500.85529 #### [facility] [address] [place], [place] [address] AST [Catalytic activity/Vol] 100 U/L High 8-34 [facility] Comment on above: Order Comment: Campu s: M Result Comment: RESU LTS MAY BE FALSELY DEPRESSED AFTER THE ADMINISTRATION OF SULFASALAZINE AND/OR SULFAPYRIDINE. Performed By: #### L 500.85196, L500.89793, L500.90220, L500.55793 #### [facility] [address] [place] [address] BILI DIRECT 0.1 MG/DL Normal 0.00-0.36 [facility] Comment on above: Order Comment: Campu s: M Result Comment: NOTE NEW NORMAL RANGE DUE TO REAGENT CHANGE Performed By: #### L 500.32033, L500.94870, L500.37102, L500.20832 #### [facility] [address] [place] [address] BILI TOTAL 0.30 MG/DL Normal 0.2-1.0 [facility] Comment on above: Order Comment: Campu s: M Performed By: #### L 500.29188, L500.44791, L500.98171, L500.29954 #### [facility] [address] [place] [address] Globulin (S) [Mass/Vol] 3.0 g/dL Normal 2.2-4.2 [facility] Comment on above: Order Comment: Campu s: M Performed By: #### L 500.50555, L500.48580, L500.12132, L500.50668 #### [facility] [address] [place], [place] [address] Protein [Mass/Vol] 7.5 g/dL Normal 6.0-8.5 [facility] Comment on above: Order Comment: Campu s: M Performed By: #### L 500.67050, L500.44143, L500.57313, L500.22889 #### [facility] [address] [place] [address] UA COMPLETEon 03-19-2021 Color (U) Yellow Normal [facility] Comment on above: Order Comment: Campu s: M Performed By: #### L 600.50186 ####[facility] [id number] [place], [place] [address]Mg# [phone] Glucose (U) [Mass/Vol] Negative Normal NORMAL [facility] Comment on above: Order Comment: Campu s: M Performed By: #### L 600.74306 ####[facility] [id number] [place], [place] [address]Lt# [phone] UA APPEARANCE Clear Normal CLEAR [facility] Comment on above: Order Comment: Campu s: M Performed By: #### L 600.18308 ####[facility] [id number] [place], [place] [address]De# [phone] UA BILIRUBIN Negative Normal NEGATIVE [facility] Comment on above: Order Comment: Campu s: M Performed By: #### L 600.70642 ####[facility] [id number] [place], [place] [address]Cv# [phone] UA BLOOD Negative Normal NEGATIVE [facility] Comment on above: Order Comment: Campu s: M Performed By: #### L 600.77807 ####[facility] [id number] [place], [place] [address]Sf# [phone] UA KETONE 5 Normal NEGATIVE [facility] Comment on above: Order Comment: Campu s: M Performed By: #### L 600.48179 ####[facility] [id number] [place], [place] [address]Qd# [phone] UA LK ESTERASE Negative Normal NEGATIVE [facility] Comment on above: Order Comment: Campu s: M Performed By: #### L 600.99458 ####[facility] [id number] [place], [place] [address]Vb# [phone] UA NITRITE Negative Normal NEGATIVE [facility] Comment on above: Order Comment: Campu s: M Performed By: #### L 600.44516 ####[facility] [id number] [place], [place] [address]Vc# [phone] UA PH 5.0 Normal 5-6 [facility] Comment on above: Order Comment: Campu s: M Performed By: #### L 600.69404 ####[facility] [id number] [place], [place] [address]Hc# [phone] UA PROTEIN Negative Normal NEGATIVE [facility] Comment on above: Order Comment: Campu s: M Performed By: #### L 600.19064 ####[facility] [id number] [place], [place] [address]Uh# [phone] UA SPEC GRAV 1.026 Normal 1.005-1.030 [facility] Comment on above: Order Comment: Campu s: M Performed By: #### L 600.74860 ####[facility] [id number] [place] [address]Gd# [phone] UA UROBILINOGEN Negative Normal NORMAL [facility] Comment on above: Order Comment: Campu s: M Performed By: #### L 600.78979 ####[facility] [id number] [place] [address]Eb# [phone] BMPon 10-29-2020 Anion gap [Moles/Vol] 5 mmol/L Normal 5-16 [facility] Comment on above: Order Comment: Campu s: M Performed By: #### L 500.66963, L500.07113 #### [facility] [address] [place] [address] Calcium [Mass/Vol] 9.2 mg/dL Normal 8.5-10.5 [facility] Comment on above: Order Comment: Campu s: M Result Comment: NOTE NEW NORMAL RANGE DUE TO REAGENT CHANGE Performed By: #### L 500.40292, L500.48345 #### [facility] [address] [place] [address] Chloride [Moles/Vol] 111 mmol/L High 98-107 [facility] Comment on above: Order Comment: Campu s: M Performed By: #### L 500.11601, L500.69371 #### [facility] [address] [place] [address] CO2 [Moles/Vol] 24.0 mmol/L Normal 21-32 [facility] Comment on above: Order Comment: Campu s: M Performed By: #### L 500.84758, L5.16549 #### [facility] [address] [place] [address] Creatinine [Mass/Vol] 0.91 mg/dL Normal 0.5-1.4 [facility] Comment on above: Order Comment: Campu s: M Result Comment: NOTE NEW NORMAL RANGE DUE TO REAGENT CHANGE Patients receiving either N-Acetylcysteine (NAC) or Metamizole prior to venipuncture, may have falsely depressed results. Performed By: #### L 500.56542, L5.05200 #### [facility] [address] [place] [address] Glucose [Mass/Vol] 131 mg/dL High 70-100 [facility] Comment on above: Order Comment: Campu s: M Result Comment: 70-1 00- Normal Fasting; 100-125 Impaired Fasting; greater than 126 on more than one result- Diabetes. ADA guidelines. Results may be falsely elevated after the administration of Sulfapyridine. Results may be falsely depressed after the administration of Sulfasalazine. Performed By: #### L 500.53345, L500.93297 #### [facility] [place] [address] Potassium [Moles/Vol] 3.8 mmol/L Normal 3.5-5.1 [facility] Comment on above: Order Comment: Campu s: M Result Comment: Slig ht Hemolysis, Result may be affected. Performed By: #### L 500.20354, L500.78831 #### [facility] [address] [place] [id number] Sodium [Moles/Vol] 140 mmol/L Normal 136-145 [facility] Comment on above: Order Comment: Campu s: M Performed By: #### L 500.69710, L500.62644 #### [facility] [address] [place], [place] [address] Urea nitrogen [Mass/Vol] 16 mg/dL Normal 7-26 [facility] Comment on above: Order Comment: Campu s: M Performed By: #### L 500.75466, L500.03909 #### [facility] [address] [place] [address] Urea nitrogen/Creatinine [Mass ratio] 18 mg/mg Normal 15-24 [facility] Comment on above: Order Comment: Campu s: M Performed By: #### L 500.65985, L500.15506 #### [facility] [address] [place] [address] CBC W/DIFFon 10-29-2020 BASO ABS 0.10 K/CU MM Normal 0-0.2 [facility] Comment on above: Order Comment: Campu s: M Performed By: #### L 200.86228 ####[facility] [id number] [place] [address]Zg# [phone] Basophils/100 WBC (Bld) 1.0 % Normal 0-2 M [facility] Comment on above: Order Comment: Campu s: M Performed By: #### L 200.71861 ####[facility] [id number] [place] [address]Wq# [phone] EOS ABS 0.20 K/CU MM Normal 0-0.5 [facility] Comment on above: Order Comment: Campu s: M Performed By: #### L 200.79101 ####[facility] [id number] [place], [place] [address]Ph# [phone] Eosinophils/100 WBC (Bld) 2.8 % Normal 0-5 [facility] Comment on above: Order Comment: Campu s: M Performed By: #### L 200.48447 ####[facility] [id number] [place] [address]Sj# [phone] Erythrocyte distribution width (RBC) [Ratio] 12.1 % Normal 11-14.5 [facility] Comment on above: Order Comment: Campu s: M Performed By: #### L 200.42470 ####[place] [address]Ph# [phone] Hematocrit (Bld) [Volume fraction] 47.2 % Normal 41.0-53.0 [facility] Comment on [facility]: Order Comment: Campu s: M Performed By: #### L 200.56091 ####[place] [address]Ph# [phone] Hemoglobin (Bld) [Mass/Vol] 17.0 g/dL Normal 13.5-17.5 [facility] Comment on above: Order Comment: Campu s: M Performed By: #### L 200.49890 ####[facility] [id number] [place], [place] [address]Ph# [phone] IMMATR GRAN ABS 0.00 K/CU MM Normal Less than 2 [facility] Comment on above: Order Comment: Campu s: M Performed By: #### L 200.04704 ####[facility] [id number] [place], [place] [address]Ph# [phone] IMMATURE GRAN % 0.3 % Normal Less than 2 [facility] Comment on above: Order Comment: Campu s: M Performed By: #### L 200.05177 ####[facility] [id number] [place], [place] [address]Ph# [phone] LYMPH ABS 4.00 K/CU MM Normal 0.9-4.4 [facility] Comment on above: Order Comment: Campu s: M Performed By: #### L 200.30228 ####[facility] [id number] [place], [place] [address]Nl# [phone] Lymphocytes/100 WBC (Bld) 46.2 % High 20-40 [facility] Comment on above: Order Comment: Campu s: M Performed By: #### L 200.67146 ####[facility] [id number] [place] [address]Hp# [phone] MCHC (RBC) [Mass/Vol] 36.0 g/dL Normal 32.0-36.0 [facility] Comment on above: Order Comment: Campu s: M Performed By: #### L 200.73929 ####[address] [address]At# [phone] MCV (RBC) [Entitic vol] 93.7 fL Normal 80.0-99.0 [facility] Comment on above: Order Comment: Campu s: M Performed By: #### L 200.60460 ####[facility] [id number] [place] [address]Oe# [phone] MONO ABS 0.60 K/CU MM Normal 0.1-1.1 [facility] Comment on above: Order Comment: Campu s: M Performed By: #### L 200.09731 ####[address] [address]Ps# [phone] Monocytes/100 WBC (Bld) 6.4 % Normal 2-10 M [facility] Comment on above: Order Comment: Campu s: M Performed By: #### L 200.69524 ####[facility] [id number] [place] [address]Gq# [phone] NEUTROPHIL ABS 3.80 K/CU MM Normal 2.0-8.3 [facility] Comment on above: Order Comment: Campu s: M Performed By: #### L 200.18486 ####[facility] [id number] [place], [place] [address]Ph# [phone] Neutrophils/100 WBC (Bld) 43.3 % Low 45-75 [facility] Comment on above: Order Comment: Campu s: M Performed By: #### L 200.39375 ####[facility] [id number] [place], [place] [address]Ec# [phone] Nucleated RBC/100 WBC (Bld) [Ratio] 0.0 % Normal Less than 1 [facility] Comment on above: Order Comment: Campu s: M Performed By: #### L 200.46484 ####[facility] [id number] [place] [address]Bl# [phone] Platelet mean volume (Bld) [Entitic vol] 11.3 fL Normal 9.4-12.4 [facility] Comment on above: Order Comment: Campu s: M Performed By: #### L 200.90274 ####[facility] [id number] [place] [address]Wt# [phone] PLT 191 K/CU MM Normal 150-450 [facility] Comment on above: Order Comment: Campu s: M Performed By: #### L 200.16518 ####[facility] [id number] [place] [address]Wh# [phone] RBC 5.04 M/CU MM Normal 4.50-6.00 [facility] Comment on above: Order Comment: Campu s: M Performed By: #### L 200.86138 ####[facility] [id number] [place] [address]La# [phone] WBC 8.7 K/CUMM Normal 4.5-11.0 [facility] Comment on above: Order Comment: Campu s: M Performed By: #### L 200.04787 ####[facility] [id number] [place] [address]Tf# [phone] EKGon 10-29-2020 Electrocardiogram Procedure Date and Time: 10/29/209 Test Reason : STAT Blood Pressure : [...] 10/29/2020 11:19:23 AM Referred By: [facility] Confirmed By:Viviana MARTÍNEZ M.D.FACC Ayala DDandT: 10/29/20 0259 TDandT: [facility] PAT[facility]: [facility] MEDICAL REC #: [id number] [place] [address] ADMIT DATE: DISCHARGE DATE: 10/29/20 ATTENDING PHY: Manda Jackson MD ELECTROCARDIOGRAM REPORT CLB cc: [facility] PATIENT NAME: [facility]AN [facility] [place] MEDICAL REC #: [id number] [place] [address] ADMIT DATE: DISCHARGE DATE: 10/29/20 ATTENDING PHY: Manda Jackson MD ELECTROCARDIOGRAM REPORT Normal [facility] 10-29-2020 EMERGENCY PHYSICIAN REPORT This is a preliminary report only, as the practitioner review and authentication has not occurred. Normal [facility] ER PHYSICIAN ASSESSMENT RECORDS : FlexChartData Event Time: 10/29/2020 05:45 Status: Signed [facility] Andrew Mclean [[id number]] Attending Physician / / 1980 Chart (V2b) Chart created at 10/29/2020 05:40 by Manda Jackson Chart closed at 10/29/2020 05:58 Entry in Emergency Department at 10/29/2020 02:56, departure at 10/29/2020 05:55 Patient Name: Andrew Mclean Record Number: [id number] Date: 10/29/2020 05:40 Entered Department at: 10/29/2020 [...] Systems. All other systems reviewed and negative.. [facility] PATIENT NAME: ANDREW MCLEAN [address] [facility] [address] [place] MEDICAL REC #: [id number] [place] [id number] EMERGENCY DEPARTMENT REPORT EMERGENCY DEPARTMENT PHYSICIAN Past [...] information as of 10/29/2020, 3:00 am 140 --------+--------+---- ----andlt; 131* Anion Gap = 5 3.8 BUN/CREA: [...] %; RBC: 5.04 M/Cu Mm; RDW: 12.1 [facility] PATIENT NAME: ANDREW MCLEAN [facility] [address] [place] MEDICAL REC #: [id number] [place] [address] EMERGENCY DEPARTMENT REPORT EMERGENCY DEPARTMENT PHYSICIAN TROPONIN I, information as of 10/29/2020, 3:08 am TROPONIN I: 3.0 Pg/Ml Cardiogram: Interpreted by me. Rate: 100 bpm. Rate NormalRhythm Sinus RhythmAxis [...] signed by Leonel Avila 10/29/2020 3:45 AM [facility] PATIENT NAME: ANDREW MCLEAN [address] [facility] [address] [place] MEDICAL REC #: [id number] [place] [address] EMERGENCY DEPARTMENT REPORT EMERGENCY DEPARTMENT PHYSICIAN Reported [...] with dacia (more content not included)... Normal [facility] GFR ESTon 10-29-2020 IF AMER Greater than [address] [facility] Comment on above: Order Comment: Eulalio s: M Performed By: #### L 500.84438, L500.92114 ####[facility] [id number] [place], [place] [address]Wr# [phone] IF non-AFR AMER Greater than [address] [facility] Comment on above: Order Comment: Eulalio s: M Performed By: #### L 500.94578, L500.23585 ####[facility] [id number] [place], [place] [address]Px# [phone] PORTABLE CHESTon 10-29-2020 PORTABLE CHEST EXAMINATION: CHEST [...] MD Signed By: LEONEL AVILA MD Normal [facility] TROPONIN Ion 10-29-2020 TROPONIN I 3.0 pg/mL Normal 0-54 [facility] Comment on above: Order Comment: Asifu s: M Result Comment: NOTE NEW NORMAL RANGE DUE TO REAGENT CHANGE This assay uses different antibodies than our current assay, and assays, even by the same photo specialist may recognize different regions of the antibody and cannot be used interchangeably. Expect results of this assay to run higher than the previous assay. Performed By: #### L 550.41028 #### [facility] [address] [place] [address] .Auto Diffon 10-02-2020 Basophil, Absolute 0.10 10 3/mcL Normal 0.00-0.27 [facility] ([place]) Comment on above: Performed By: #### C BC ADIFF, ANEU, CMP, GFR, LIP #### [address] [address] Basophils/100 WBC (Bld) 1.2 % Normal 0.0-2.5 A [facility] ([place]) Comment on above: Performed By: #### C BC, ADIFF, ANEU, CMP, GFR, LIP #### [address] [address] Eosinophil, Absolute 0.10 10 3/mcL Normal 0.00-0.65 A [facility] ([place]) Comment on above: Performed By: #### C BC, ADIFF, ANEU, CMP, GFR, LIP #### [address] [address] Eosinophils/100 WBC (Bld) 0.9 % Normal 0.0-6.0 [facility] ([place]) Comment on above: Performed By: #### C BC, ADIFF, ANEU, CMP, GFR, LIP #### [address] [address] Lymphocyte, Absolute 3.40 10 3/mcL Normal 0.90-4.32 A [facility] ([place]) Comment on above: Performed By: #### C BC, ADIFF, ANEU, CMP, GFR, LIP #### [address] [address] Lymphocytes/100 WBC (Bld) 39.0 % Normal 20.0-40.0 [facility] ([place]) Comment on above: Performed By: #### C BC, ADIFF, ANEU, CMP, GFR, LIP #### [address] [address] Monocyte, Absolute 0.50 10 3/mcL Normal 0.09-1.40 [facility] ([place]) Comment on above: Performed By: #### C BC, ADIFF, ANEU, CMP, GFR, LIP #### [address] [address] Monocytes/100 WBC (Bld) 5.9 % Normal 2.0-13.0 A [facility] ([place]) Comment on above: Performed By: #### C BC, ADIFF, ANEU, CMP, GFR, LIP #### [address] [address] Neutrophils/100 WBC (Bld) 53.0 % Normal 50.0-75.0 [facility] ([place]) Comment on above: Performed By: #### C BC, ADIFF, ANEU, CMP, GFR, LIP #### [address] [address] .GFRon 10-02-2020 GFR >60 Normal [facility] ([place]) Comment on above: Result Comment: GFR Population [...] BC, ADIFF, ANEU, CMP, GFR, LIP #### [address] [address] GFR Non- >60 Normal [facility] ([place]) Comment on above: Result Comment: GFR [...] BC, ADIFF, ANEU, CMP, GFR, LIP #### [address] [address] .NEUABSon 10-02-2020 Neutrophil, Absolute 4.60 10 3/mcL Normal 2.25-8.10 A [facility] ([place]) Comment on above: Performed By: #### C BC, ADIFF, ANEU, CMP, GFR, LIP #### [address] [address] CBCon 10-02-2020 Erythrocyte distribution width (RBC) [Ratio] 13.4 % Normal 11.5-15.5 [facility] ([place]) Comment on above: Performed By: #### C BC, ADIFF, ANEU, CMP, GFR, LIP #### [place] [address] Hematocrit (Bld) [Volume fraction] 52.8 % High 40.0-52.0 [facility] ([place]) Comment on above: Performed By: #### C BC, ADIFF, ANEU, CMP, GFR, LIP #### [place] [address] Hgb 18.5 G/dL High 13.0-17.5 [facility] ([place]) Comment on above: Performed By: #### C BC, ADIFF, ANEU, CMP, GFR, LIP #### [place] [address] MCH (RBC) [Entitic mass] 33.9 pg High 27.0-33.0 [facility] ([place]) Comment on above: Performed By: #### C BC, ADIFF, ANEU, CMP, GFR, LIP #### [place] [address] MCHC 35.0 G/dL Normal 32.0-36.0 [facility] ([place]) Comment on above: Performed By: #### C BC, ADIFF, ANEU, CMP, GFR, LIP #### [place] [address] MCV (RBC) [Entitic vol] 96.8 fL Normal 81.0-100.0 A [facility] ([place]) Comment on above: Performed By: #### C BC, ADIFF, ANEU, CMP, GFR, LIP #### [place] [address] Platelet 207 10 3/mcL Normal 150-450 [facility] ([place]) Comment on above: Performed By: #### C BC, ADIFF, ANEU, CMP, GFR, LIP #### [place] [address] Platelet mean volume (Bld) [Entitic vol] 9.6 fL Normal 6.4-10.5 [facility] ([place]) Comment on above: Performed By: #### C BC, ADIFF, ANEU, CMP, GFR, LIP #### [address] [address] RBC 5.46 10 6/mcL Normal 4.50-6.00 [facility] ([place]) Comment on above: Performed By: #### C BC, ADIFF, ANEU, CMP, GFR, LIP #### [place] [address] WBC 8.70 10 3/mcL Normal 4.50-10.80 [facility] ([place]) Comment on above: Performed By: #### C BC, ADIFF, ANEU, CMP, GFR, LIP #### [place] [id number] CMPon 10-02-2020 Albumin Level 4.1 G/dL Normal 3.2-4.8 [facility] ([place]) Comment on above: Performed By: #### C BC, ADIFF, ANEU, CMP, GFR, LIP #### [place] [address] Albumin/Globulin [Mass ratio] 1.1 {ratio} Normal 0.9-1.6 [facility] ([place]) Comment on above: Performed By: #### C BC, ADIFF, ANEU, CMP, GFR, LIP #### [place] [address] ALP [Catalytic activity/Vol] 65 U/L Normal 38-126 [facility] ([place]) Comment on above: Performed By: #### C BC, ADIFF, ANEU, CMP, GFR, LIP #### [place] [id number] ALT [Catalytic activity/Vol] 89 U/L High 12-55 [facility] ([place]) Comment on above: Performed By: #### C BC, ADIFF, ANEU, CMP, GFR, LIP #### [place] [id number] AST [Catalytic activity/Vol] 31 U/L Normal 8-34 [facility] ([place]) Comment on above: Performed By: #### C BC, ADIFF, ANEU, CMP, GFR, LIP #### [place] [id number] Bili Total 0.4 mg/dL Normal 0.2-1.2 [facility] ([place]) Comment on above: Result Comment: Use of this assay is not recommended for patients undergoing treatment with eltrombopag due to the potential for falsely elevated results. Performed By: #### C BC, ADIFF, ANEU, CMP, GFR, LIP #### [address] [address] BUN/Creatinine Ratio 16.0 ratio Normal 10.0-22.0 [facility] ([place]) Comment on above: Performed By: #### C BC, ADIFF, ANEU, CMP, GFR, LIP #### [address] [address] Calcium [Mass/Vol] 9.1 mg/dL Normal 8.4-10.1 [facility] ([place]) Comment on above: Result Comment: No te - New Reference Range in effect 19 Performed By: #### C BC, ADIFF, ANEU, CMP, GFR, LIP #### [place] [id number] Chloride [Moles/Vol] 109 mmol/L Normal 98-110 [facility] ([place]) Comment on above: Performed By: #### C BC, ADIFF, ANEU, CMP, GFR, LIP #### [address] [address] CO2 [Moles/Vol] 25 mmol/L Normal 22-32 [facility] ([place]) Comment on above: Performed By: #### C BC, ADIFF, ANEU, CMP, GFR, LIP #### [address] [address] Creatinine [Mass/Vol] 0.94 mg/dL Normal 0.60-1.40 [facility] ([place]) Comment on above: Performed By: #### C BC, ADIFF, ANEU, CMP, GFR, LIP #### [address] [address] Electrolyte Balance 5.0 mEq/L Normal 4.0-15.0 [facility] ([place]) Comment on above: Performed By: #### C BC, ADIFF, ANEU, CMP, GFR, LIP #### [address] [address] Globulin 3.7 G/dL Normal 1.5-3.8 [facility] ([place]) Comment on above: Performed By: #### C BC, ADIFF, ANEU, CMP, GFR, LIP #### [address] [address] Glucose [Mass/Vol] 97 mg/dL Normal 70-110 [facility] ([place]) Comment on above: Performed By: #### C BC, ADIFF, ANEU, CMP, GFR, LIP #### [address] [address] Potassium [Moles/Vol] 3.9 mmol/L Normal 3.5-5.0 [facility] ([place]) Comment on above: Performed By: #### C BC, ADIFF, ANEU, CMP, GFR, LIP #### [address] [address] Sodium [Moles/Vol] 139 mmol/L Normal 136-145 [facility] ([place]) Comment on above: Performed By: #### C BC, ADIFF, ANEU, CMP, GFR, LIP #### [address] [address] Total Protein 7.8 G/dL Normal 6.0-8.5 [facility] ([place]) Comment on above: Result Comment: No te - New Reference Range in effect 19 Performed By: #### C BC, ADIFF, ANEU, CMP, GFR, LIP #### [address] [address] Urea nitrogen [Mass/Vol] 15.0 mg/dL Normal 8.0-22.0 [facility] ([place]) Comment on above: Performed By: #### C BC, ADIFF, ANEU, CMP, GFR, LIP #### [address] [address] [address] ABD/PELVIS W/ IV CONTRAST ONLYon 10-02-2020 [...] PM Sign Date: 10/02/2020 8:42:53 PM Ordering Provider:Sharad Hope Normal [facility] ([place]) LIPon 10-02-2020 Lipase Level 50 U/L Normal 12-53 [facility] ([place]) Comment on above: Result Comment: No te - New Reference Range in effect 19 Performed By: #### C BC, ADIFF, ANEU, CMP, GFR, LIP #### [place] [id number] US ABDOMEN LIMITEDon 021 US ABDOMEN LIMITED [...] By: Tomás Townsend MD Preliminary Report By: Suzie Shankar DO Electronically Signed By: Tomás Townsend MD Dictated Date: 10/02/2020 6:44:38 PM Prelim Date: 10/02/2020 6:51:45 PM Sign Date: 10/02/2020 7:14:57 PM Ordering Provider:Leann Fairchild [facility] ([facility] 08-30-2020 EMERGENCY PHYSICIAN REPORT This is a preliminary report only, as the practitioner review and authentication has not occurred. [facility] ER PHYSICIAN ASSESSMENT RECORDS : FlexChartData Event Time: 08/30/2020 13:20 KA Status: Signed [facility] Andrew Mclean [[id number]] Mid-Level Chart (V2b) 40 / M / 1980 Chart created at 08/30/2020 13:12 by Denver Osman Chart closed at 08/30/2020 13:17 Entry in Emergency Department at 08/30/2020 10:39, departure at 08/30/2020 14:18 Patient Name: Andrew Mclean Record Number: [id number] Date: 08/30/2020 13:12 Entered Department at: 08/30/2020 [...] in nurses note. Medications: Reviewed RN Note. [facility] PATIENT NAME: ANDREW MCLEAN [facility] Dr. [address] MEDICAL REC #: [id number] [place] [address] EMERGENCY DEPARTMENT REPORT EMERGENCY DEPARTMENT PHYSICIAN Allergies: [...] were no prior studies available for comparison. [facility] PATIENT NAME: ANDREW MCLEAN [facility] Dr[address] [place] MEDICAL REC #: [id number] [place] [address] EMERGENCY DEPARTMENT REPORT EMERGENCY DEPARTMENT PHYSICIAN The femoral head is in good position. No fractures are seen. There are mild degenerative changes. IMPRESSION: Mild degenerative change. No acute abnormalities. ---- Electronic Signature on File ---- Signed By: Sharad Cohn MD FACR [email or web address] Dictated: 08/30/2020 12:29 PM Signed: 08/30/2020 12:30 PM Reported By: SHARAD COHN M.D. Radiology: Interpreted by Radiologist. Medical Decision Making Vitals are noted. Patient is afebrile. Blood pressure is 174/104 this could be pain related. Patient was medicated with 1 Meridian and muscle relaxer. Heart rate is 75. [...] He will be referred to the [facility] musculoskeletal clinic. Clinical Impression: [facility] PATIENT NAME: ANDREW MCLEAN [facility] Dr[address] [place] MEDICAL REC #: [id number] [place] [address] EMERGENCY DEPARTMENT REPORT EMERGENCY DEPARTMENT PHYSICIAN 1. Subacute right hip pain 2. Elevated blood pressure Disposition: Discharged . Condition: Good Electronically sign (more content not included)... Normal [facility] HIP COMP 2-3 VIEWS RIGHTon [...] Electronic Signature on File ---- Signed By: Sharad Cohn MD FACR [email or web address] Dictated: 08/30/2020 12:29 PM Signed: 08/30/2020 12:30 PM Reported By: SHARAD COHN M.D. Signed By: SHARAD COHN M.D. Normal [facility] Vital Signs Date Time Vital Sign Value Performing Clinician Facility 10-15-2024 15:18-0400 Body temperature 98 [degF] No Primary Care Physician [facility] 10-15-2024 15:18-0400 Diastolic blood pressure 97 mm[Hg] No Primary Care Physician [facility] 10-15-2024 15:18-0400 Heart rate 78 /min No Primary Care Physician [facility] 10-15-2024 15:18-0400 Respiratory rate 16 /min No Primary Care Physician [facility] 10-15-2024 15:18-0400 SaO2% (BldA) [Mass fraction] 99 % No Primary Care Physician [facility] 10-15-2024 15:18-0400 Systolic blood pressure 137 mm[Hg] No Primary Care Physician [facility] 10-15-2024 12:05-0400 Body height 175.26 cm No Primary Care Physician [facility] 10-15-2024 12:05-0400 Body mass index (BMI) [Ratio] 27.2 kg/m2 No Primary Care Physician [facility] 10-15-2024 12:05-0400 Body weight 83.64 kg No Primary Care Physician [facility] 08-28-2023 18:05-0400 Body height 175.3 cm Ngoc Villalobos DO Work Phone: [facility] 08-28-2023 18:04-0400 Body temperature 98.01 [degF] Ngoc Villalobos DO Work Phone: [facility] 08-28-2023 18:04-0400 Diastolic blood pressure 96 mm[Hg] Ngoc Villalobos DO Work Phone: [facility] 08-28-2023 18:04-0400 Heart rate 100 /min Ngoc Villalobos DO Work Phone: [facility] 08-28-2023 18:04-0400 Respiratory rate 18 /min Ngoc Villalobos DO Work Phone: [facility] 08-28-2023 18:04-0400 SaO2% (BldA) [Mass fraction] 99 % Ngoc Villalobos DO Work Phone: [facility] 08-28-2023 18:04-0400 Systolic blood pressure 126 mm[Hg] Ngoc Villalobos DO Work Phone: [facility] 07-26-2023 13:27-0400 Body temperature 98.4 [degF] [facility] 07-26-2023 13:27-0400 Diastolic blood pressure 85 mm[Hg] [facility] 07-26-2023 13:27-0400 Heart rate 74 /min [facility] 07-26-2023 13:27-0400 Respiratory rate 16 /min [facility] 07-26-2023 13:27-0400 SaO2% (BldA) [Mass fraction] 100 % [facility] 07-26-2023 13:27-0400 Systolic blood pressure 121 mm[Hg] [facility] 07-26-2023 11:27-0400 Body height 175.26 cm [facility] 07-26-2023 11:27-0400 Body mass index (BMI) [Ratio] 27.5 kg/m2 [facility] 07-26-2023 11:27-0400 Body weight 84.62 kg [facility] 04-16-2023 11:05-0500 SaO2% (BldA) [Mass fraction] 95 % [facility] 04-16-2023 09:36-0500 Heart rate 96 /min [facility] 04-16-2023 09:36-0500 Respiratory rate 18 /min [facility] 04-16-2023 08:27-0500 Diastolic blood pressure 98 mm[Hg] [facility] 04-16-2023 08:27-0500 Systolic blood pressure 150 mm[Hg] [facility] 04-16-2023 06:51-0500 Body height 175.26 cm [facility] 04-16-2023 06:51-0500 Body mass index (BMI) [Ratio] 27.3 kg/m2 [facility] 04-16-2023 06:51-0500 Body temperature 97.2 [degF] [facility] 04-16-2023 06:51-0500 Body weight 84.1 kg [facility] 04-10-2023 10:56-0500 Respiratory rate 18 /min [facility] 04-10-2023 08:58-0500 Body mass index (BMI) [Ratio] 27.2 kg/m2 [facility] 04-10-2023 08:58-0500 Body temperature 98.6 [degF] [facility] 04-10-2023 08:58-0500 Body weight 83.7 kg [facility] 04-10-2023 08:58-0500 Diastolic blood pressure 82 mm[Hg] [facility] 04-10-2023 08:58-0500 Heart rate 95 /min [facility] 04-10-2023 08:58-0500 SaO2% (BldA) [Mass fraction] 99 % [facility] 04-10-2023 08:58-0500 Systolic blood pressure 128 mm[Hg] [facility] 03-03-2022 19:50-0500 Diastolic blood pressure 119 mm[Hg] Dr. Ena Holloway Work Phone: [facility] Work Phone: 03-03-2022 19:50-0500 Heart rate 101 /min Dr. Ena Holloway Work Phone: [facility] Work Phone: 03-03-2022 19:50-0500 Systolic blood pressure 154 mm[Hg] Dr. Ena Holloway Work Phone: [facility] Work Phone: 03-03-2022 19:26-0500 Body height 175.[address] Ena Holloway Work Phone: [facility] Work Phone: 03-03-2022 19:26-0500 Body mass index (BMI) [Ratio] 28.8 kg/m2 Dr. Ena Holloway Work Phone: [facility] Work Phone: 03-03-2022 19:26-0500 Body temperature 97.9 [degF] Dr. Ena Holloway Work Phone: [facility] Work Phone: 03-03-2022 19:26-0500 Body weight 88.[address] Ena Holloway Work Phone: [facility] Work Phone: 03-03-2022 19:26-0500 Respiratory rate 18 /min Dr. Ena Holloway Work Phone: [facility] Work Phone: 03-03-2022 19:26-0500 SaO2% (BldA) [Mass fraction] 96 % Dr. Ena Holloway Work Phone: [facility] Work Phone: 02-28-2022 08:16-0500 Body height 177.[address] Ena Holloway Work Phone: [facility] Work Phone: 02-28-2022 08:16-0500 Body mass index (BMI) [Ratio] 30.1 kg/m2 Dr. Ena Holloway Work Phone: [facility] Work Phone: 02-28-2022 08:16-0500 Body temperature 97.5 [degF] Dr. Ena Holloway Work Phone: [facility] Work Phone: 02-28-2022 08:16-0500 Body weight 95.[address] Ena Holloway Work Phone: [facility] Work Phone: 02-28-2022 08:16-0500 Diastolic blood pressure 106 mm[Hg] Dr. Ena Holloway Work Phone: [facility] Work Phone: 02-28-2022 08:16-0500 Heart rate 109 /min Dr. Ean Holloway Work Phone: [facility] Work Phone: 02-28-2022 08:16-0500 Respiratory rate 18 /min Dr. Ena Holloway Work Phone: [facility] Work Phone: 02-28-2022 08:16-0500 SaO2% (BldA) [Mass fraction] 99 % Dr. Ena Holloway Work Phone: [facility] Work Phone: 02-28-2022 08:16-0500 Systolic blood pressure 147 mm[Hg] Dr. Ena Holloway Work Phone: [facility] Work Phone: 01-07-2022 09:10-0400 Body temperature 98.8 [degF] Dr. Ena Holloway Work Phone: [facility] Work Phone: 01-07-2022 09:10-0400 Diastolic blood pressure 97 mm[Hg] Dr. Ena Holloway Work Phone: [facility] Work Phone: 01-07-2022 09:10-0400 Heart rate 63 /min Dr. Ena Holloway Work Phone: [facility] Work Phone: 01-07-2022 09:10-0400 Respiratory rate 14 /min Dr. Ena Holloway Work Phone: [facility] Work Phone: 01-07-2022 09:10-0400 SaO2% (BldA) [Mass fraction] 98 % Dr. Ena Holloway Work Phone: [facility] Work Phone: 01-07-2022 09:10-0400 Systolic blood pressure 133 mm[Hg] Dr. Ena Holloway Work Phone: [facility] Work Phone: 01-06-2022 10:31-0400 Body height 177.[address] Ena Holloway Work Phone: [facility] Work Phone: 01-06-2022 10:31-0400 Body weight 92.[address] Ena Holloway Work Phone: [facility] Work Phone: 01-06-2022 09:20-0400 Body mass index (BMI) [Ratio] 29.2 kg/m2 Dr. Ena Holloway Work Phone: [facility] Work Phone: 01-06-2022 03:39-0400 Body temperature 98 [degF] Dr. Ena Holloway Work Phone: [facility] Work Phone: 01-06-2022 03:39-0400 Diastolic blood pressure 99 mm[Hg] Dr. Ena Holloway Work Phone: [facility] Work Phone: 01-06-2022 03:39-0400 Heart rate 67 /min Dr. Ena Holloway Work Phone: [facility] Work Phone: 01-06-2022 03:39-0400 Respiratory rate 16 /min Dr. Ena Holloway Work Phone: [facility] Work Phone: 01-06-2022 03:39-0400 SaO2% (BldA) [Mass fraction] 98 % Dr. Ena Holloway Work Phone: [facility] Work Phone: 01-06-2022 03:39-0400 Systolic blood pressure 132 mm[Hg] Dr. Ena Holloway Work Phone: [facility] Work Phone: 01-06-2022 01:15-0400 Body height 177.[address] Ena Holloway Work Phone: [facility] Work Phone: 01-06-2022 01:15-0400 Body mass index (BMI) [Ratio] 41.5 kg/m2 Dr. Ena Holloway Work Phone: [facility] Work Phone: 01-06-2022 01:15-0400 Body weight 131.[address] Ena Holloway Work Phone: [facility] Work Phone: 01-03-2022 16:48-0400 SaO2% (BldA) [Mass fraction] 94 % Dr. Ena Holloway Work Phone: [facility] Work Phone: 01-03-2022 12:53-0400 Body temperature 98.1 [degF] Dr. Ena Holloway Work Phone: [facility] Work Phone: 01-03-2022 12:53-0400 Diastolic blood pressure 97 mm[Hg] Dr. Ena Holloway Work Phone: [facility] Work Phone: 01-03-2022 12:53-0400 Heart rate 55 /min Dr. Ena Holloway Work Phone: [facility] Work Phone: 01-03-2022 12:53-0400 Respiratory rate 18 /min Dr. Ena Holloway Work Phone: [facility] Work Phone: 01-03-2022 12:53-0400 Systolic blood pressure 128 mm[Hg] Dr. Ena Holloway Work Phone: [facility] Work Phone: 01-03-2022 09:29-0400 Body height 177.[address] Ena Holloway Work Phone: [facility] Work Phone: 01-03-2022 09:29-0400 Body mass index (BMI) [Ratio] 29.4 kg/m2 Dr. Ena Holloway Work Phone: [facility] Work Phone: 01-03-2022 09:29-0400 Body weight 92.[address] Ena Holloway Work Phone: [facility] Work Phone: 12-31-2021 21:21-0400 Body temperature 98 [degF] [facility] Work Phone: 12-31-2021 21:21-0400 Diastolic blood pressure 104 mm[Hg] [facility] Work Phone: 12-31-2021 21:21-0400 Heart rate 84 /min [facility] Work Phone: 12-31-2021 21:21-0400 Respiratory rate 16 /min [facility] Work Phone: 12-31-2021 21:21-0400 SaO2% (BldA) [Mass fraction] 95 % [facility] Work Phone: 12-31-2021 21:21-0400 Systolic blood pressure 141 mm[Hg] [facility] Work Phone: 12-31-2021 15:38-0400 Body height 177.8 cm [facility] Work Phone: 12-31-2021 15:38-0400 Body mass index (BMI) [Ratio] 30.3 kg/m2 [facility] Work Phone: 12-31-2021 15:38-0400 Body weight 95.8 kg [facility] Work Phone: 12-02-2021 10:41-0400 Diastolic blood pressure 105 mm[Hg] [facility] Work Phone: 12-02-2021 10:41-0400 Heart rate 98 /min [facility] Work Phone: 12-02-2021 10:41-0400 Respiratory rate 17 /min [facility] Work Phone: 12-02-2021 10:41-0400 SaO2% (BldA) [Mass fraction] 97 % [facility] Work Phone: 12-02-2021 10:41-0400 Systolic blood pressure 134 mm[Hg] [facility] Work Phone: 12-02-2021 09:51-0400 Body height 175.26 cm [facility] Work Phone: 12-02-2021 09:51-0400 Body mass index (BMI) [Ratio] 30.3 kg/m2 [facility] Work Phone: 12-02-2021 09:51-0400 Body temperature 97.8 [degF] [facility] Work Phone: 12-02-2021 09:51-0400 Body weight 93.2 kg [facility] Work Phone: 11-15-2021 17:56-0400 Body height 175.26 cm [facility] Work Phone: 11-15-2021 17:56-0400 Body mass index (BMI) [Ratio] 31.6 kg/m2 [facility] Work Phone: 11-15-2021 17:56-0400 Body temperature 96.3 [degF] [facility] Work Phone: 11-15-2021 17:56-0400 Body weight 97.1 kg [facility] Work Phone: 11-15-2021 17:56-0400 Diastolic blood pressure 131 mm[Hg] [facility] Work Phone: 11-15-2021 17:56-0400 Heart rate 95 /min [facility] Work Phone: 11-15-2021 17:56-0400 Respiratory rate 16 /min [facility] Work Phone: 11-15-2021 17:56-0400 SaO2% (BldA) [Mass fraction] 97 % [facility] Work Phone: 11-15-2021 17:56-0400 Systolic blood pressure 169 mm[Hg] [facility] Work Phone: 09-20-2021 07:50-0400 Diastolic blood pressure 72 mm[Hg] [facility] Work Phone: 09-20-2021 07:50-0400 Heart rate 71 /min [facility] Work Phone: 09-20-2021 07:50-0400 Respiratory rate 16 /min [facility] Work Phone: 09-20-2021 07:50-0400 SaO2% (BldA) [Mass fraction] 98 % [facility] Work Phone: 09-20-2021 07:50-0400 Systolic blood pressure 134 mm[Hg] [facility] Work Phone: 09-20-2021 06:16-0400 Body height 175.26 cm [facility] Work Phone: 09-20-2021 06:16-0400 Body mass index (BMI) [Ratio] 32.1 kg/m2 [facility] Work Phone: 09-20-2021 06:16-0400 Body temperature 97.9 [degF] [facility] Work Phone: 09-20-2021 06:16-0400 Body weight 98.7 kg [facility] Work Phone: Encounters Encounter Date Encounter Type Care Provider Facility Start: 11-16-2024 ambulatory [facility] Facility :[facility] Start: 11-07-2024 ambulatory [facility] Facility :[facility] Start: 10-30-2024 ambulatory [facility] Facility :[facility] Start: 10-17-2024 End: 10-17-2024 Emergency department patient visit PRO QUINONES MD [facility] Start: 10-15-2024 End: 10-15-2024 Emergency department patient visit No Primary Care Physician -Emergency Department Work Phone: Start: 05-02-2024 End: 05-02-2024 Emergency department patient visit Rhett Tyler Facility:[facility] Start: 08-28-2023 End: 08-28-2023 Emergency department patient visit Ngoc Ray Villalobos Work Phone: [facility] Start: 07-26-2023 End: 07-26-2023 Emergency department patient visit [facility] Work Phone: Start: 04-16-2023 End: 04-16-2023 Emergency department patient visit [facility] Work Phone: Start: 04-10-2023 End: 04-10-2023 Emergency department patient visit [facility] Work Phone: Start: 03-03-2022 End: 03-03-2022 Emergency department patient visit Dr. Ena Holloway Work Phone: [facility] Start: 02-28-2022 End: 02-28-2022 Emergency department patient visit Dr. Ena Holloway Work Phone: [facility] Start: 01-07-2022 Non-patient / Non-visit Dr. Nat Holloway Work Phone: [facility] Start: 01-06-2022 Non-patient / Non-visit Dr. Nat Holloway Work Phone: [facility] Start: 01-06-2022 End: 01-07-2022 Evaluation and management of inpatient [facility]. Ena Hollow[facility] Start: 01-03-2022 Non-patient / Non-visit Dr. Nat Holloway Work Phone: [facility] Start: 01-03-2022 Non-patient / Non-visit Dr. Nat Holloway Work Phone: [facility] Start: 01-02-2022 Non-patient / Non-visit Dr. Nat Holloway Work Phone: [facility] Start: 01-01-2022 Non-patient / Non-visit Dr. Nat Holloway Work Phone: [facility] Start: 01-01-2022 Non-patient / Non-visit Dr. Nat Holloway Work Phone: [facility] Start: 01-01-2022 End: 01-03-2022 Non-patient / Non-visit Dr. Ena Holloway Work Phone: [facility] Start: 12-31-2021 End: 01-03-2022 [facility] Start: 12-02-2021 End: 12-02-2021 [facility] Start: 11-15-2021 End: 11-15-2021 [facility] Start: 09-20-2021 End: 09-20-2021 [facility] Date Procedure Procedure Detail Performing Clinician Start: 10-15-2024 Estimated creatinine clearance No Primar y Care Physician Start: 10-15-2024 CT of thorax, abdomen and pelvis with contrast No Primary Care Physician Start: 07-26-2023 Plain X-ray of shoulder Start: [...] Treatment Date Care Activity Detail Author Start: 10-15-2024 [facility] Start: 10-15-2024 [facility] Start: 12-06-2023 Influenza vaccination INFLUENZA VACCINE (Season Ended) [facility] Start: 07-26-2023 [facility] Start: 04-16-2023 [facility] Start: 04-10-2023 [facility] Start: 12-05-2022 COVID-19 VACCINE ( season) COVID-19 VACCINE ( season) [facility] Start: 2022 Blood chemistry [facility] Work Phone: Start: 01-08-2022 Blood chemistry [facility] Work Phone: Start: 01-07-2022 Patient discharge [facility] Work Phone: Start: 01-06-2022 End: 01-07-2022 [facility] Work Phone: Start: 01-06-2022 Egd transoral biopsy single/multiple EGD BIOPSY SINGLE/MULTIPLE [facility] Work Phone: Start: 01-06-2022 Egd transoral control bleeding any method EGD CONTROL BLEEDING ANY [facility] Work Phone: Start: 01-06-2022 Catheterization of vein [facility] Work Phone: Start: 01-06-2022 Application of intermittent pneumatic compression device [facility] Work Phone: Start: 01-06-2022 Following clinical pathway protocol [facility] Work Phone: Start: 01-06-2022 Assessment of risk of venous thromboembolism [facility] Work Phone: Start: 01-06-2022 Insertion of catheter into peripheral vein [facility] Work Phone: Start: 01-06-2022 Oxygen therapy [facility] Work Phone: Start: 01-06-2022 Providing care according to standard [facility] Work Phone: Start: 01-06-2022 Referral to gastroenterology service [facility] Work Phone: Start: 01-06-2022 End: 01-06-2022 Verification routine [facility] Work Phone: Start: 01-06-2022 Admission procedure [facility] Work Phone: Start: 01-03-2022 Patient discharge [facility] Work Phone: Start: 01-01-2022 End: 01-02-2022 [facility] Work Phone: Start: 01-01-2022 Following clinical pathway protocol [facility] Work Phone: Start: 01-01-2022 End: 01-01-2022 Catheterization of vein [facility] Work Phone: Start: 01-01-2022 End: 01-01-2022 Notification of physician [facility] Work Phone: Start: 01-01-2022 Oxygen therapy [facility] Work Phone: Start: 12-31-2021 Ambulation without limitation [facility] Work Phone: Start: 12-31-2021 Assessment of risk of venous thromboembolism [facility] Work Phone: Start: 12-31-2021 Insertion of catheter into peripheral vein [facility] Work Phone: Start: 12-31-2021 Providing care according to standard [facility] Work Phone: Start: 12-31-2021 Referral to gastroenterology service [facility] Work Phone: Start: 12-31-2021 [facility] Work Phone: Start: 12-31-2021 Following clinical pathway protocol [facility] Work Phone: Start: 12-31-2021 Verification routine [facility] Work Phone: Start: 12-31-2021 Admission procedure [facility] Work Phone: Start: 12-02-2021 [facility] Work Phone: Start: 2019 Lipid panel LIPID SCREENING [facility] Start: 1998 Hepatitis B vaccination HEP B VACCINE (1 of 3 - 19+ 3-dose series) [facility] Start: 1998 Third diphtheria, tetanus and acellular pertussis (DTaP) vaccination TDAP (ADULT) [facility] Start: 1994 HIV screening HIV SCREENING DISCUSSION [facility] Start: 1979 Hepatitis C screening HEPATITIS C VIRUS SCREENING [facility] Start: 1979 Tetanus vaccination TETANUS [facility] Anion gap measurement [facility] Work Phone: BUN/Creatinine ratio [facility] Work Phone: Calcium [Mass/volume ] in Serum or Plasma [facility] Work Phone: Carbon dioxide, tota l [Moles/volume] in Serum or Plasma [facility] Work Phone: Chloride [Moles/volu me] in Serum or Plasma [facility] Work Phone: Creatinine [Moles/vo lume] in Serum or Plasma [facility] Work Phone: Glucose [Mass/volume ] in Serum or Plasma [facility] Work Phone: Hematocrit [Volume F raction] of Blood [facility] Work Phone: Hemoglobin [Mass/vol ume] in Blood [facility] Work Phone: Leukocytes [#/volume ] in Blood [facility] Work Phone: Mean corpuscular hem oglobin concentration determination [facility] Work Phone: Mean corpuscular hem oglobin determination [facility] Work Phone: Measurement of renal function [facility] Work Phone: Neutrophil count [facility] Work Phone: Neutrophil percent differential count [facility] Work Phone: Patient Education [facility] Work Phone: Patient referral [facility] Work Phone: Platelets [#/volume] in Blood [facility] Work Phone: Potassium [Moles/vol ume] in Serum or Plasma [facility] Work Phone: Red blood cell count [facility] Work Phone: Red cell distributio n width determination [facility] Work Phone: Sodium [Moles/volume ] in Serum or Plasma [facility] Work Phone: Urea nitrogen [Mass/ volume] in Serum or Plasma [facility] Work Phone: Immunizations Immunization Date Immunization Notes Care Provider Fa [facility] 02-28-2022 tetanus toxoid, redu jd diphtheria toxoid, and acellular pertussis vaccine, adsorbed Dr. Ena Holloway Work Phone: [facility] Payers Date Payer Category Payer Private Health Insurance [id number] [id number] 2024 Self-pay [id number] 2024 Unknown [id number] 2012 Unknown [id number] 1979 Unknown [id number] Medicaid [id number] Private Health Insurance [id number] Unknown [id number] [id number] [id number] Unknown [id number] [id number] Unknown [id number] [id number] [id number] Unknown [id number] [id number] Unknown [id number] [id number] Social History Date Type Detail Facility Start: 09-20-2021 End: 07-26-2023 Tobacco smoking status NCIS Unknown if ever smoked [facility] Start: 06-30-[address] [facility] Start: 12-29-2018 With Family [facility] Start: 04-22-[address] [facility] Start: 1980 Sex Assigned At Male W [facility] Start: 08-28-2023 [facility] History of tobacco use Current smoker [facility] History of tobacco use Cigarette Smoker A [facility] Start: 08-28-2023 Tobacco use and exposure Smokeless tobacco non-user [facility] Start: 08-28-2023 Alcoholic beverage intake Ex-drinker (finding) [facility] Start: 08-28-2023 History of Social function [facility] Start: 08-28-2023 Tobacco use panel [facility] Start: 1980 Sex assigned at Not on file A [facility] Start: 10-15-[address] [facility] Current Light tobacco smoker [facility] Tobacco smoking status [facility] Start: 10-02-2020 Sex Male (finding) [facility] Goals Date Patient Goal Desired Activity /State Functional Status Date Assessment Result Facility 01-07-2022 Functional status Ambulates [facility] Work Phone: 01-03-2022 Functional status Ambulates;Up ad blake [facility] Work Phone: Mental Status Date Assessment Result Facility 10-15-2024 Cognitive function Awake;Alert;A ppropriate;Follow s Commands [facility] Work Phone: 01-07-2022 Cognitive function Level Of Cons ciousness Awake;Alert;Appropriate;Follow s Commands [facility] Work Phone: 01-06-2022 Cognitive function Comprehension Ability Demonstrates ability to follow instructions/comprehend [facility] Work Phone: 01-06-2022 Cognitive function Arousable To Light Dianna n [facility] Work Phone: 01-06-2022 [facility]: 01-03-2022 Cognitive function Awake;Alert;Appropriat e [facility] Work Phone: 01-03-2022 Cognitive function [facility] Work Phone: 12-02-2021 Cognitive function Voice/Name [facility] Work Phone: Clinical Notes 10-15-2021 to 10-17-2024 Note Date & Type Note Facility 10-17-2024 Hospital Discharg e instructions Patient Education 10/17/2024 14:43:28 Chest Pain, Uncertain Cause Uncertain Causes of Chest Pain Chest pain can happen for a number of reasons. Sometimes the cause can't be determined. If your condition does not seem serious, and your pain does not appear to be coming from your heart, your healthcare provider may recommend watching it closely. Sometimes the signs of a serious problem take more time to appear. Many problems not related to your heart can cause chest pain. These include: Musculoskeletal. Costochondritis is an inflammation of the tissues around the ribs that can occur from trauma or overuse injuries, or a strain of the muscles of the chest wall Respiratory. Pneumonia, collapsed lung (pneumothorax), or inflammation of the lining of the chest and lungs (pleurisy) Gastrointestinal. Esophageal reflux, heartburn, ulcers, or gallbladder disease Anxiety and panic disorders Nerve compression and inflammation Rare miscellaneous problems such as aortic aneurysm (a swelling of the large artery coming out of the heart) or pulmonary embolism (a blood clot in the lungs) Home care After your visit, follow these recommendations: Rest today and avoid strenuous activity. Take any prescribed medicine as directed. Be aware of any recurrent chest pain and notice any changes Follow-up care Follow up with your healthcare provider if you do not start to feel better within 24 hours, or as advised. Call 911 Call 911 if any of these occur: A change in the type of pain: if it feels different, becomes more severe, lasts longer, or begins to spread into your shoulder, arm, neck, jaw or back Shortness of breath or increased pain with breathing Weakness, dizziness, or fainting Rapid heart beat Crushing sensation in your chest When to seek medical advice Call your healthcare provider right away if any of the following occur: Cough with dark colored sputum (phlegm) or blood Fever of 100.4 F (38 C) or higher, or as directed by your healthcare provider Swelling, pain or redness in one leg [id number] [employer]. [address] [place] [address]. All rights reserved. This information is not intended as a substitute for professional medical care. Always follow your healthcare professional's instructions. 10/17/2024 14:43:18 Dizziness, Uncertain Cause Dizziness (Uncertain Cause) Dizziness is a common symptom. It may be described as lightheadedness, spinning, or feeling like you are going to faint. Dizziness can have many causes. Be sure to tell the healthcare provider about: All medicines you take, including prescription, [id number]-[id number], herbs, and supplements Any other symptoms you have Any health problems you are being treated for Any past major health problems you've had, such as a heart attack, balance issues, hearing problems, or blood pressure problems Anything that causes the dizziness to get worse or better Today's exam did not show an exact cause for your dizziness. Other tests may be needed. Follow up with your healthcare provider. Home care Dizziness that occurs with sudden standing may be a sign of mild dehydration. Drink extra fluids for the next few days. If you recently started a new medicine, stopped a medicine, or had the dose of a current medicine changed, talk with the prescribing healthcare provider. Your medicine plan may need adjustment. If dizziness lasts more than a few seconds, sit or lie down until it passes. This may help prevent injury in case you pass out. Get up slowly when you feel better. Don't drive or use power tools or dangerous equipment until you have had no dizziness for at least 48 hours. Follow-up care Follow up with your healthcare provider for further evaluation within the next 7 days or as advised. When to seek medical advice Call your healthcare provider for any of the following: Worsening of symptoms or new symptoms Passing out or seizure Repeated vomiting Headache Palpitations (the sense that your heart is fluttering or beating fast or hard) Shortness of breath Blood in vomit or stool (black or red color) Weakness of an arm or leg or 1 side of the face Vision or hearing changes Trouble walking or speaking Chest, arm, neck, back, or jaw pain [id number] [employer] [place] [address]. All rights reserved. This information is not intended as a substitute for professional medical care. Always follow your healthcare professional's instructions. 10/17/2024 14:43:09 Headache, Unspecified Headache, Unspecified A number of things can cause headaches. The cause of your headache isn t clear. But it doesn t seem to be a sign of any serious illness. Headache affects almost everyone at some time. It is the most common reason people miss days from work or school. You could have a tension headache or a migraine headache. Stress can cause a tension headache. This can happen if you tense the muscles of your shoulders, neck, and scalp without knowing it. If this stress lasts long enough, you may develop a tension headache. It is not clear why migraines occur, but certain things called triggers can raise the risk of having a migraine attack. Migraine triggers may include emotional stress or depression, or by hormone changes during the menstrual cycle. Other triggers include control pills and other medicines, alcohol or caffeine, foods with tyramine (such as aged cheese, wine), eyestrain, weather changes, missed meals, and lack of sleep or oversleeping. Other causes of headache include: Viral illness with high fever Head injury with concussion Sinus, ear, or throat infection Dental pain and jaw joint (TMJ) pain More serious but less common causes of headache include stroke, brain hemorrhage, brain tumor, meningitis, and encephalitis. Home care Follow these tips when taking care of yourself at home: Don t drive yourself home if you were given pain medicine for your headache. Instead, have someone else drive you home. Try to sleep when you get home. You should feel much better when you wake up. Apply heat to the back of your neck to ease a neck muscle spasm. Take care of a migraine headache by putting an ice pack on your forehead or at the base of your skull. If you have nausea or vomiting, eat a light diet until your headache eases. If you have a migraine headache, use sunglasses when in the daylight or around bright indoor lighting until your symptoms get better. Bright glaring light can make this type of headache worse. Follow-up care Follow up with your healthcare provider, or as advised. Talk with your provider if you have frequent headaches. He or she can help figure out a treatment plan. By knowing the earliest signs of headache, and starting treatment right away, you may be able to stop the pain yourself. When to seek medical advice Call your healthcare provider right away if any of these occur: Your head pain suddenly gets worse after sexual intercourse or strenuous activity Your head pain doesn t get better within 24 hours You aren t able to keep liquids down (repeated vomiting) Fever of 100.4 F (38 C) or higher, or as directed by your healthcare provider Stiff neck Extreme drowsiness, confusion, or fainting Dizziness or dizziness with spinning sensation (vertigo) Weakness in an arm or leg or one side of your face You have trouble talking or seeing [id number] [employer]. [address] [place] [address]. All rights reserved. This information is not intended as a substitute for professional medical care. Always follow your healthcare professional's instructions. Follow Up Care 10/17/2024 12:06:58 With:Call Physician Referral Address:Unknown When:2-4 days Comments:Schedule appointment for close follow-up and to establish a primary care doctor.Use Tylenol, Advil or Aleve for headaches as needed.Use meclizine as prescribed for dizziness as needed.Return to the ED if symptoms worsen. [facility] 10-17-2024 Note Discharge Instructions Thank you for allowing [facility] to assist you with your healthcare needs. The following is important discharge information regarding your hospital visit. Diagnosis from Today's Visit Cephalgia Chest pain, unspecified Dizziness What to Do Next Instructions from Your Care Team Discharge Return to Work, School, or Sports (Return to Work, School, or Sports) - Ordered -- 10/18/24, May return to: work, 10/17/24 15:24:00 EDT Post Acute Orders No qualifying data available. You Need to Schedule the Following Appointments Follow Up with Call Physician Referral When:Within 2-4 days Additional Information: Schedule appointment for close follow-up and to establish a primary care doctor. Use Tylenol, Advil or Aleve for headaches as needed. Use meclizine as prescribed for dizziness as needed. Return to the ED if symptoms worsen. Allergies [facility] Medications Please ask your primary doctor or pharmacist before taking any other medication not listed, including over the counter drugs, herbal medications, vitamins and or supplements as they may interact with your home medications. What How Much When Instructions Last Dose New meclizine (meclizine 25 mg oral tablet) 1 tab(s) by mouth Three (3) times a day Duration: 3 Days Printed Prescription Unchanged albuterol (albuterol 90 mcg/ inh inhalation powder) 1 puff(s) by inhalation Every 4 hours as needed for as needed for shortness of breath or wheezing Please take this list to your next doctor s visit. Bring all medications you take, including over the counter medications, herbals and other supplements with you to your doctor s visit. Patients and families are reminded to discard old lists and to update any records with all medication providers or retail pharmacies. Medication Leaflets meclizine (EMILY kimble) Antivert, Bonine, Bonine Max, Dramamine Less Drowsy, Dramamine Nausea Long Lasting, Travel-Ease (Meclizine) What is the most important information I should know about meclizine? Use only as directed. Tell your doctor if you use other medicines or have other medical conditions or allergies. What is meclizine? Meclizine is used in adults and children aged 12 years and older to treat or prevent nausea, vomiting and dizziness caused by motion sickness. Meclizine is also used in adults to treat symptoms of vertigo (dizziness or spinning sensation) caused by disease that affects your inner ear. Meclizine may also be used for purposes not listed in this medication guide. What should I discuss with my healthcare provider before taking meclizine? You should not use meclizine if you are allergic to it. Do not give this medicine to anyone younger than 12 years old without medical advice. Tell your doctor if you have or have ever had: glaucoma; breathing problems such as asthma, emphysema, or chronic bronchitis; an enlarged prostate or urination problems; recently used alcohol, sedatives, or tranquilizers; or liver or kidney disease. Tell your doctor if you are or . How should I take meclizine? Follow all directions on your prescription label and read all medication guides or instruction sheets. Use the medicine exactly as directed. Swallow the tablet whole and do not crush, chew, or break it. You must chew the chewable tablet before you swallow it. To prevent motion sickness, take meclizine about 1 hour before you travel or anticipate having motion sickness. You may take meclizine once every 24 hours while you are traveling, to further prevent motion sickness. To treat vertigo, you may need to take meclizine several times daily. Follow your doctor's instructions. Store at room temperature away from moisture, heat, and light. What happens if I miss a dose? Meclizine is used when needed. If you are on a dosing schedule, skip any missed dose. Do not use two doses at one time. What happens if I overdose? Seek emergency medical attention or call the Poison Help line at . What should I avoid while taking meclizine? Avoid driving or hazardous activity until you know how this medicine will affect you. Your reactions could be impaired. Avoid drinking alcohol. Drinking alcohol with this medicine can cause side effects. What are the possible side effects of meclizine? Get emergency medical help if you have signs of an allergic reaction: hives, difficult breathing, swelling of your face, lips, tongue, or throat. Common side effects may include: drowsiness; dry mouth; headache; vomiting; or feeling tired. This is not a complete list of side effects and others may occur. Call your doctor for medical advice about side effects. You may report side effects to FDA at 6-338-GFT-6336. What other drugs will affect meclizine? Using meclizine with other drugs that make you drowsy can worsen this effect. Ask your doctor before using opioid medication, a sleeping pill, a muscle relaxer, or medicine for anxiety or seizures. Sometimes it is not safe to use certain medicines at the same time. Some drugs can affect your blood levels of other drugs you use, which may increase side effects or make the medicines less effective. Other drugs may affect meclizine, including prescription and ajem-wcn-jdxrhid medicines, vitamins, and herbal products. Tell your doctor about all other medicines you use. Where can I get more information? Your doctor or pharmacist can provide more information about meclizine. Remember, keep this and all other medicines out of the reach of children, never share your medicines with others, and use this medication only for the indication prescribed. Every effort has been made to ensure that the information provided by [employer] is accurate, up-to-date, and complete, but no guarantee is made to that effect. Drug information contained herein may be time sensitive. [employer] information has been compiled for use by healthcare practitioners and consumers in the [place] and therefore [employer] does not warrant that uses outside of the [place] are appropriate, unless specifically indicated otherwise. [employer] drug information does not endorse drugs, diagnose patients or recommend therapy. [employer] drug information is an informational resource designed to assist licensed healthcare practitioners in caring for their patients and/or to serve consumers viewing this service as a supplement to, and not a substitute for, the expertise, skill, knowledge and judgment of healthcare practitioners. The absence of a warning for a given drug or drug combination in no way should be construed to indicate that the drug or drug combination is safe, effective or appropriate for any given patient. [employer] does not assume any responsibility for any aspect of healthcare administered with the aid of information [employer] provides. The information contained herein is not intended to cover all possible uses, directions, precautions, warnings, drug interactions, allergic reactions, or adverse effects. If you have questions about the drugs you are taking, check with your doctor, nurse or pharmacist. Copyright 6319-5192 [employer]. Version: 8.02. Revision Date: 08/05/2024. Education Materials Uncertain Causes of Chest Pain Chest pain can happen for a number of reasons. Sometimes the cause can't be determined. If your condition does not seem serious, and your pain does not appear to be coming from your heart, your healthcare provider may recommend watching it closely. Sometimes the signs of a serious problem take more time to appear. Many problems not related to your heart can cause chest pain. These include: Musculoskeletal. Costochondritis is an inflammation of the tissues around the ribs that can occur from trauma or overuse injuries, or a strain of the muscles of the chest wall Respiratory. Pneumonia, collapsed lung (pneumothorax), or inflammation of the lining of the chest and lungs (pleurisy) Gastrointestinal. Esophageal reflux, heartburn, ulcers, or gallbladder disease Anxiety and panic disorders Nerve compression and inflammation Rare miscellaneous problems such as aortic aneurysm (a swelling of the large artery coming out of the heart) or pulmonary embolism (a blood clot in the lungs) Home care After your visit, follow these recommendations: Rest today and avoid strenuous activity. Take any prescribed medicine as directed. Be aware of any recurrent chest pain and notice any changes Follow-up care Follow up with your healthcare provider if you do not start to feel better within 24 hours, or as advised. Call 911 Call 911 if any of these occur: A change in the type of pain: if it feels different, becomes more severe, lasts longer, or begins to spread into your shoulder, arm, neck, jaw or back Shortness of breath or increased pain with breathing Weakness, dizziness, or fainting Rapid heart beat Crushing sensation in your chest When to seek medical advice Call your healthcare provider right away if any of the following occur: Cough with dark colored sputum (phlegm) or blood Fever of 100.4 F (38 C) or higher, or as directed by your healthcare provider Swelling, pain or redness in one leg [id number] [employer]. [address] [place] [address]. All rights reserved. This information is not intended as a substitute for professional medical care. Always follow your healthcare professional's instructions. Dizziness (Uncertain Cause) Dizziness is a common symptom. It may be described as lightheadedness, spinning, or feeling like you are going to faint. Dizziness can have many causes. Be sure to tell the healthcare provider about: All medicines you take, including prescription, ulvj-wln-sbvsumi, herbs, and supplements Any other symptoms you have Any health problems you are being treated for Any past major health problems you've had, such as a heart attack, balance issues, hearing problems, or blood pressure problems Anything that causes the dizziness to get worse or better Today's exam did not show an exact cause for your dizziness. Other tests may be needed. Follow up with your healthcare provider. Home care Dizziness that occurs with sudden standing may be a sign of mild dehydration. Drink extra fluids for the next few days. If you recently started a new medicine, stopped a medicine, or had the dose of a current medicine changed, talk with the prescribing healthcare provider. Your medicine plan may need adjustment. If dizziness lasts more than a few seconds, sit or lie down until it passes. This may help prevent injury in case you pass out. Get up slowly when you feel better. Don't drive or use power tools or dangerous equipment until you have had no dizziness for at least 48 hours. Follow-up care Follow up with your healthcare provider for further evaluation within the next 7 days or as advised. When to seek medical advice Call your healthcare provider for any of the following: Worsening of symptoms or new symptoms Passing out or seizure Repeated vomiting Headache Palpitations (the sense that your heart is fluttering or beating fast or hard) Shortness of breath Blood in vomit or stool (black or red color) Weakness of an arm or leg or 1 side of the face Vision or hearing changes Trouble walking or speaking Chest, arm, neck, back, or jaw pain 6036-6728 [employer] [address] [place], [place] [id number]. All rights reserved. This information is not intended as a substitute for professional medical care. Always follow your healthcare professional's instructions. Headache, Unspecified A number of things can cause headaches. The cause of your headache isn t clear. But it doesn t seem to be a sign of any serious illness. Headache affects almost everyone at some time. It is the most common reason people miss days from work or school. You could have a tension headache or a migraine headache. Stress can cause a tension headache. This can happen if you tense the muscles of your shoulders, neck, and scalp without knowing it. If this stress lasts long enough, you may develop a tension headache. It is not clear why migraines occur, but certain things called triggers can raise the risk of having a migraine attack. Migraine triggers may include emotional stress or depression, or by hormone changes during the menstrual cycle. Other triggers include control pills and other medicines, alcohol or caffeine, foods with tyramine (such as aged cheese, wine), eyestrain, weather changes, missed meals, and lack of sleep or oversleeping. Other causes of headache include: Viral illness with high fever Head injury with concussion Sinus, ear, or throat infection Dental pain and jaw joint (TMJ) pain More serious but less common causes of headache include stroke, brain hemorrhage, brain tumor, meningitis, and encephalitis. Home care Follow these tips when taking care of yourself at home: Don t drive yourself home if you were given pain medicine for your headache. Instead, have someone else drive you home. Try to sleep when you get home. You should feel much better when you wake up. Apply heat to the back of your neck to ease a neck muscle spasm. Take care of a migraine headache by putting an ice pack on your forehead or at the base of your skull. If you have nausea or vomiting, eat a light diet until your headache eases. If you have a migraine headache, use sunglasses when in the daylight or around bright indoor lighting until your symptoms get better. Bright glaring light can make this type of headache worse. Follow-up care Follow up with your healthcare provider, or as advised. Talk with your provider if you have frequent headaches. He or she can help figure out a treatment plan. By knowing the earliest signs of headache, and starting treatment right away, you may be able to stop the pain yourself. When to seek medical advice Call your healthcare provider right away if any of these occur: Your head pain suddenly gets worse after sexual intercourse or strenuous activity Your head pain doesn t get better within 24 hours You aren t able to keep liquids down (repeated vomiting) Fever of 100.4 F (38 C) or higher, or as directed by your healthcare provider Stiff neck Extreme drowsiness, confusion, or fainting Dizziness or dizziness with spinning sensation (vertigo) Weakness in an arm or leg or one side of your face You have trouble talking or seeing [id number] [employer]. [address] [facility], [place] [address]. All rights reserved. This information is not intended as a substitute for professional medical care. Always follow your healthcare professional's instructions. Additional Information VACCINATE! IT SAVES LIVES! Members of the community who have not yet received the COVID-19 vaccine and would like to receive it can visit one of [facility] vaccine clinics. There are many vaccine clinic locations within the [facility]. For locations and available times, please visit [email or web address] [email or web address] It is important to note that some COVID mobile vaccine clinics are held outdoors and may be canceled in rainy or stormy conditions. To learn more about pediatric vaccinations (ages 5-11), we invite you to visit the [employer] webpage. [email or web address] [email or web address] [email or web address] To learn more about the COVID-19 vaccine, we invite you to visit the CDC website for a list of frequently asked questions. https://www.cdc.gov/coronavirus/ 2019-ncov/vaccines/faq.html [facility] Patient Portal Access Instructions: Stay connected with your healthcare team and access your personal medical information anytime with the [facility] Patient Portal. If you would like a full copy of your medical records please contact the [facility] Medical Records Department Thursday through Thursday between 8a.m. and 4:30p.m. Please follow the directions below to access the portal: 1.Access the email account you provided upon registration to the hospital.2.Look for an invitation email from [facility].3.Open the email and access the invitation link: Accept Invitation to [facility]4.Fill in the required dumont to create your account. Sign into www.Virtual Call Center with your username and password that you created in the above steps to stay up to date. You can then view a summary of results, a summary of your visits, and the ability to download your summaries to your computer or send the information securely to a physician. Remember that your healthcare information is confidential, so carefully consider who you will allow to register on the [facility] Patient Portal for access to your information. You can also access the [facility] Patient Portal on the [facility] toño. Simply click on Health Records under Health Data and then click on the [facility] logo. HOW TO SAFELY DISPOSE OF PRESCRIPTION MEDICATIONS Please use one of the following methods to safely dispose of your unused medications. 1.Use a drug disposal kit: the drug disposal pouch allows you to safely discard your old and unused drugs. Ask your nurse to give you one when you are discharged.2.Visit a local take-back location: Many local pharmacies and police departments have programs that collect old and unwanted prescription drugs. Call your local pharmacy or go to http://HourlyNerd.Omnidrive/0D6Ph7p to find one close to you.3.Make use of household items: Use cat litter or old coffee grounds to dispose medications if other options are not available. Mix your drugs with these household products, seal them in an airtight container and throw it into the garbage. Call [facility]: [phone] to be sure your drugs can be disposed of in this way. Some medicines may require a different approach.4.Never flush your medications down the toilet. IF YOU HAVE BEEN PRESCRIBED AN OPIOIDS FOR PAIN If you have been prescribed an opioid (such as hydrocodone, oxycodone or morphine), it is critical to understand the possible side effects and risks of opioid pain medications. Even when taken as directed, opioids can have several side effects including: Tolerance, meaning you might need to take more of a medication for the same pain relief. Nausea, vomiting and/or constipation. Sleepiness, dizziness, dry mouth, confusion, depression or itching. Physical dependence, meaning you have withdrawal symptoms when a medication is stopped ? this can develop within a few days. KNOW YOUR RESPONSIBILITIES It is important to know exactly how much and how often to take the opioid pain medications you are prescribed. Never take opioids in higher amounts or more often than prescribed. Do not combine opioids with alcohol or other drugs that cause drowsiness, such as benzodiazepines, also known as benzos, including diazepam and alprazolam, muscle relaxants or sleep aids. Never sell or share prescription opioids. This is illegal. Store opioids in a secure place and out of reach of others (including children, family, friends and visitors). The last page(s) of this document has been signed and retained as a CHART COPY Signatures Patient Education Materials Chest Pain, Uncertain Cause Dizziness, Uncertain Cause Headache, Unspecified Medication Leaflets meclizine My discharge plan and instructions have been reviewed and explained to me and PABLO Murray DALE R understand my current condition and have read and understand these discharge instructions. I have received a written copy of the plan/instructions. If I have questions, I am aware that I should contact my doctor. 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 Sagittal and coronal images were reconstructed from the axial plane acquisition. Additional 3D reformatted MIP reconstructions were presented to aid in the interpretation of this study. Images were obtained from the skull base through the upper lobes. One or more the following dose reduction techniques were used:automated exposure control, adjustment of the mA and/or kV according to patient size, or use of iterative reconstruction technique. Additional comment: None. 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 No stenosis or dissection. Right common carotid artery: No hemodynamically significant flow-limiting stenosis or dissection. Right internal carotid artery: No hemodynamically significant flow-limiting stenosis or dissection. Right external carotid artery: No hemodynamically significant flow-limiting stenosis. Left common carotid artery: No hemodynamically significant flow-limiting stenosis or dissection. Left internal carotid artery: No hemodynamically significant flow-limiting stenosis or dissection. Left external carotid artery: No hemodynamically significant flow-limiting stenosis. V1/V2 vertebral arteries: Hypoplastic left vertebral artery. No hemodynamically significant flow-limiting stenosis or dissection. Vertebral artery dominance: Right. Neck Soft tissues: Normal. Bones: No acute osseous pathology or aggressive lesion. Straightening of the normal cervical lordosis without a significant listhesis. Mild disc height loss involves C5-C6 and C6-C7. Lung apices: Refer to same day separately reported CT thorax IMPRESSION: 1. No hemodynamically significant flow-limiting stenosis or dissection. 2. 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 Interpreted by: Hudson Villagomez MD Preliminary Report By: Hudson Villagomez MD Electronically signed By Hudson Villagomez MD Dictated Date: 10/17/2024 1:42:56 PM Prelim Date: 10/17/2024 1:48:02 PM Sign Date: 10/17/2024 1:48:02 PM Ordering Provider: [facility]07-14-2025 Note* Exam Date Time Procedure Performing Provider Status 10/17/24 1:[address] Angiography Head w/ Contrast HUDSON SHAY MD; Auth (Verified) [id number] ORIGINAL EXAMINATION: CT Angiogram of the head with intravenous contrast TECHNIQUE: CT angiogram of the head was obtained. Sagittal and coronal reformations and maximum intensity projection reconstructions were provided. Images were obtained before and after the uneventful administration of IV contrast. 3D reformatted MIP images were provided One or more of the following dose reduction techniques were used: automated exposure control, adjustment of the mA and/or kV according to patient size, or use of iterative reconstruction technique. DICOM images are available. COMPARISON: Correlated with same day CTA neck HISTORY: ORDERING SYSTEM PROVIDED HISTORY: Reason for Exam: Dissection FINDINGS: Brain Parenchyma: No acute intracranial hemorrhage, midline shift, mass effect or transcortical ischemic infarct. The shen-white matter junctions are preserved. No space-occupying intra-axial masses or extra-axial fluid collections. Ventricles: No hydrocephalus or ventricular effacement. Paranasal sinuses: Right maxillary sinus retention cyst or polyp. Aplastic right and hypoplastic left frontal sinuses. Mastoid air cells: Clear. Bones: Normal. Additional comment: None. Cerebral angiogram Aneurysm: No aneurysm identified. Anterior circulation: Internal carotid arteries:No flow limiting stenosis Ophthalmic arteries:The bilateral proximal ophthalmic arteries are patent. Anterior cerebral arteries:No flow-limiting stenosis Middle cerebral arteries:No flow-limiting stenosis. Posterior cerebral arteries: origin of the left posterior cerebral artery. No significant flow-limiting stenosis. Anterior communicating artery:Present. Posterior communicating arteries:Present on the left. Aplastic or hypoplastic on the right. Posterior circulation: Basilar artery:No flow-limiting stenosis V3/V4 vertebral arteries:No significant flow-limiting stenosis. The left vertebral artery is hypoplastic and appears to terminate as PICA. The left PICA are is atretic Dural venous sinuses:Patent. IMPRESSION: 1. No large vessel occlusion, flow-limiting stenosis, aneurysm or dissection. 2. 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 3. origin of the left posterior cerebral artery. Interpreted by: Hudson Villagomez MD Preliminary Report By: Hudson Villagomez MD Electronically signed By Hudson Villagomez MD Dictated Date: 10/17/2024 1:48:07 PM Prelim Date: 10/17/2024 1:51:26 PM Sign Date: 10/17/2024 1:51:26 PM Ordering Provider: [facility]07-14-2025 Note* Exam Date Time Procedure Performing Provider Status 10/17/24 1:[address] Angiography Chest w/ Contrast ARNOLD DOWELL MD; Auth (Verified) [id number] ORIGINAL EXAMINATION: CTA OF THE without then with CHEST10/17/2024 2:20 pm CTA CHEST WITH CONTRAST TECHNIQUE: CTA of the chest was performed after the administration of intravenous contrast. Multiplanar reformatted images are provided for review. MIP images are provided for review. Automated exposure control, iterative reconstruction, and/or weight based adjustment of the mA/kV was utilized to reduce the radiation dose to as low as reasonably achievable. CTA of the thorax was acquired in the axial plane. Coronal and sagittal reformatted images were reviewed. Three dimensional reconstructions were created on a separate workstation. COMPARISON: None HISTORY: ORDERING SYSTEM PROVIDED HISTORY: Reason for Exam: difficulty breathing; suspect DISSECTION. no hx of cancer. difficulty breathing; suspect DISSECTION FINDINGS: The heart size is normal; no pericardial effusion. There are no pathologically enlarged axillary, mediastinal or hilar lymph nodes. The aorta is normal in caliber. No intramural hematoma visualized. No dissections seen. A separate origin of the left vertebral artery from the aortic arch is noted. Trachea and central airways are patent. A 2 mm subpleural right upper lobe nodule seen image 22. No suspicious pulmonary nodules are identified. Bandlike areas of scarring/atelectasis visualized. No pulmonary consolidation identified. There is no pleural effusion or pneumothorax. No aggressive osseous lesions seen. Degenerative changes seen of the spine. A vague lesion is identified in the left hepatic lobe, measuring approximately 3.3 cm. Heterogeneous fatty infiltration of the liver is suspected. The abdomen is not evaluated in detail. IMPRESSION: No evidence of dissection Vague low-density lesion in the left hepatic lobe. It is unclear if this lesion relates to a hemangioma or other pathology. A follow-up MRI of the liver is advised Right solid pulmonary nodule within the upper lobe measuring 2 mm. Per Fleischner Society Guidelines, if patient is low risk for malignancy, no routine follow-up imaging is recommended. If patient is high risk for malignancy, a non-contrast Chest CT at 12 months is optional. If performed and the nodule is stable at 12 months, no further follow-up is recommended. These guidelines do not apply to immunocompromised patients and patients with cancer. Follow up in patients with significant comorbidities as clinically warranted. For lung cancer screening, adhere to Lung-RADS guidelines. Reference: Radiology. 2017; 284(1):228-43. Interpreted by: Arnold Dowell MD Preliminary Report By: Arnold Dowell MD Electronically signed By Arnold Dowell MD Dictated Date: 10/17/2024 2:29:00 PM Prelim Date: 10/17/2024 2:34:48 PM Sign Date: 10/17/2024 2:34:48 PM Ordering Provider: DAYAN KIDD [facility]07-14-2025 Note* Exam Date Time Procedure Performing Provider Status 10/17/24 12:24 PM EKG [ED AOH] - CV PRO QUINONES MD; Auth (Verified) ECG Final Report Sinus rhythm Electronic Signature: PRO QUINONES MD 10/17/2024 12:30:21 [facility]07-12-2025 Radiology Diagnostic study note [facility] Imaging Services [address] [place], [place] [id number] CTA Chst, Abd, Pel W and/or WO MR#: [id number] Acct: [id number] Name: ANDREW MCLEAN Jr. Rep #: [id number] : 1980 M 44 From: Fiorella Brannon MD PCP: Care Physician,No Primary Status: REG ER Study:CTA Chst, Abd, Pel W and/or WO Date of Exam: 10/15/24 Exam# [id number] Ordering Dr: Hattie Wells DO PROCEDURE: CTA CHST, ABD, PEL W AND/OR WO 10/15/2024 REASON FOR EXAM: CHEST AND ABDOMEN PAIN TECHNIQUE: CTA CHST, ABD, PEL W AND/OR WO coronal and Sagittal reconstruction series were provided, including MIP imaging One or more dose reduction techniques were used (e.g., Automated exposure control, adjustment of the mA and/or kV according to patient size, use of iterative reconstruction technique. CONTRAST: Isovue 370 VOLUME: 100 mL RADIATION DOSE SUMMARY: DLP: 1200 mGycm COMPARISON: CT abdomen pelvis 05/02/2024. FINDINGS: Visualization of the visceral organs is limited by coronal and sagittal MIP reconstruction. CHEST: Hardware: None. Mediastinum: No traumatic thoracic aortic injury or mediastinal hematoma. Heart: The heart is normal in size without pericardial effusion. The great vessels are normal in caliber. No significant coronary artery or thoracic aortic calcifications. Lungs and Airways: The central airways are grossly patent. No suspicious pulmonary mass, pleural effusion or pneumothorax. Bones: Grossly unremarkable. ABDOMEN AND PELVIS: Liver: The liver is normal in size without large suspicious mass. No biliary ductal dilation. Gallbladder: Grossly unremarkable. Spleen: Normal in size. Pancreas: Grossly unremarkable. Adrenals: No adrenal mass. Kidneys: Grossly unremarkable. Bladder: Decompressed. Reproductive Organs: Grossly unremarkable. Bowel: The bowel loops are nondilated. No ascites or free air. Prior appendectomy. Vasculature: The abdominal aorta is normal in caliber without ectasia or dissection. The origins ofthe celiac, SMA and SIERRA are widely patent. The bilateral renal arteries are widely patent. Bones: No obvious aggressive lesions. Mild lumbar spondylosis. CT/CTA Chst, Abd, Pel W and/or WO IMPRESSION: NO ACUTE TRAUMATIC FINDINGS AT THE CHEST, ABDOMEN OR PELVIS. Reading Location: [facility] CC: Dr. Kenny Wells DO; No Primary Care Physician ~ [employer]: Signed [facility]05-24-2024 Hospital Discharge instructions* Discharge Instructions* Ngoc Villalobos DO - 08/28/2023 6:11 PM EDT Increase fluids. Drink plenty of water. Stay hydrated. Warm saltwater gargles as needed. Tylenol, ibuprofen for fever pain and body aches. Available vswm-aio-fupvfxo use as directed. Zithromax once a day [...] breath, wheezing, weakness/lethargy, poor oral intake, fever. * Attachments The following attachments cannot be sent through Care Everywhere. * URI (Upper Respiratory Infection): Viral (Belarusian) * Acute Bronchitis or Chest Cold Care Instructions ([facility]) (Belarusian) [facility] Emergency department Note* Ngoc Villalobos DO - 08/28/2023 6:04 PM EDT Emergency Department Report [facility] EM[facility]GENCY MEDICINE Service Date:.08/28/23 PCP: Ngoc Holloway Chief Complaint: Chief Complaint Patient presents with Cough Cough, sneezing, sore throat, chills, shaking and diarrhea x2 days. Pt states he just can't shakeit. HPI Andrew Mclean is a 43 y.o. male presents [...] sprays per nostril BID for 7 days. SJEUMRVFFHCXUZO-FKDCINTNWJFYCHT-NAIEOPBQYCFUNTKY 30-2-10 MG/5ML SYRUP Take 5 mL by [...] tablet 500 mg azithromycin 500 MG tablet vxbjbshlfezfkhf-oyapebkfmswsppv-jwvsqinqiijzztei 30-2-10 MG/5ML Syrup fluticasone 50 MCG/ACT Suspension nasal spray No results found for this or any previous visit. Radiographic Imaging No orders to display Procedures: Procedures Moderate Sedation Procedure: No ED Summary/MDM Ddx; upper respiratory infection, sinusitis, allergic rhinitis, pharyngitis, bronchitis, pneumonia,viral syndrome, influenza, COVID. 43-year-old male complains of runny nose and congestion and cough body aches for the past 2-3 days.Patient states she is healthy. Has history of [...] needs to be swab. I will treat himfor upper respiratory infection and bronchitis. Patient states he called off work today and needs awork note. 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 He can go back [...] in 2-4 days. Return if worse cough, tod estion, runny nose/drainage, shortness of breath, wheezing, weakness/lethargy, [...] sprays per nostril BID for 7 days. MNGGYXWWUQDGENE-QULOPWYNZWCKEAM-IMKPHASFYDAMTBZV 30-2-10 MG/5ML SYRUP Take 5 mL by mouth every 6 hours as needed for Cold Symptoms, Cough, Congestion or Rhinitis. Discontinued Medications No medications on file An After Visit Summary was printed and given to the patient with above information. . Ngoc Villalobos DO 08/28/231825 Ngoc Villalobos DO 08/28/231827 [facility] Emergency department Note* Ngoc Villalobos DO - 08/28/2023 6:04 PM EDT Emergency Department Report [facility] EM[facility]GENCY MEDICINE Service Date:.08/28/23 PCP: Ngoc Holloway Chief Complaint: Chief Complaint Patient presents with Cough Cough, sneezing, sore throat, chills, shaking and diarrhea x2 days. Pt states he just can't shakeit. HPI Andrew Mclean is a 43 y.o. male presents [...] sprays per nostril BID for 7 days. DPIGERWBGSUOIYT-JZIKTCRKPGPRYLO-LIAGXBWHDITLSKIJ 30-2-10 MG/5ML SYRUP Take 5 mL by [...] tablet 500 mg azithromycin 500 MG tablet gggnuwtgaglafmb-nbmvgpxkekbmcik-joxubuneecglroht 30-2-10 MG/5ML Syrup fluticasone 50 MCG/ACT Suspension nasal spray No results found for this or any previous visit. Radiographic Imaging No orders to display Procedures: Procedures Moderate Sedation Procedure: No ED Summary/MDM Ddx; upper respiratory infection, sinusitis, allergic rhinitis, pharyngitis, bronchitis, pneumonia,viral syndrome, influenza, COVID. 43-year-old male complains of runny nose and congestion and cough body aches for the past 2-3 days.Patient states she is healthy. Has history of [...] needs to be swab. I will treat himfor upper respiratory infection and bronchitis. Patient states he called off work today and needs awork note. 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 He can go back to [...] in 2-4 days. Return if worse cough, tod estion, runny nose/drainage, shortness of breath, wheezing, weakness/lethargy, [...] sprays per nostril BID for 7 days. MNDCQZSCYGWGDDG-ACYWBWSWKEMUTWG-KGKETJSPOTMBFXMT 30-2-10 MG/5ML SYRUP Take 5 mL by mouth every 6 hours as needed for Cold Symptoms, Cough, Congestion or Rhinitis. Discontinued Medications No medications on file An After Visit Summary was printed and given to the patient with above information. . Ngoc Villalobos DO 08/28/231825 Ngoc Villalobos DO 08/28/231827 documented in this encounterOhio[facility] Hospital Discharge instructions Additional Instructions Use ice to the left shoulder 4-5 times a day for approximately 20 minutes at a time. Do range of motion exercises after icing.[facility] Work Phone: [phone]) 680-418507-12-2022 Hospital Discharge instructionsAdditional Instructions The testing of your heart is normal. Your chest pain could be musculoskeletal since you have been moving furniture and I recommend ice and Tylenol as needed. Follow-up with a primary care doctor and Dr. Barfield and JANUSZ for evaluation of your rectal bleeding. Your scopes a few years ago had bleeding from the upper and lower GI tract so this needs reevaluated. Return to ER if symptoms worsen.[facility] Work Phone: Evaluation + Plan note No data available for this section [facility] evaluxzzox noteNo assessment information available [facility] Work Phone: Evaluation note* Diagnosis Onset Date Resolution Status Dehydration acute GI bleed acute [facility] Work Phone: Evaluation note* Diagnosis Onset Date Resolution Status Dehydration acute GI bleed acute Pancreatitis acute [facility] Work Phone: Evaluation note* Diagnosis Onset Date Resolution Status Dehydration acute GI bleed acute Pancreatitis acute GI bleed acute [facility] Work Phone: Evaluation note* Diagnosis Onset Date Resolution Status Dehydration acute GI bleed acute Pancreatitis acute Dehydration acute GI bleed acute Hypertension acute Pancreatitis acute [facility] Work Phone: Evaluation note* Diagnosis Onset Date Resolution Status GI bleed resolved Hypertension acute GI bleed resolved [facility] Work Phone: Evaluation note* Diagnosis Upper respiratory tract infection, unspecified type- Primary Bronchitis Bronchitis, not specified as acute or chronic documented in this [facility] Additional Instructions Ice area and elevate, take ibuprofen as needed for swelling and pain. Use crutches and Aircast for as long as you need, you should be able to use the crutches less or not at all after 1 or 2 weeks.[facility] Work Phone: [facility] Work Phone: Reason for referral (narrative)No reason for referral information availableWSelect [facility] Work Phone: Summary Purpose Family History No Family History Records Found Relationship Condition Age at Onset Recorded Date/T bill Not Specified Malignant neoplasm of liver Unknown Malignant neoplasm of ovary Unknown Advance Directives No Advanced Directives Records Found Advance Directive Response Recorded Date/ Time Living Will No September 20, 2021 6:21am Power of Broomcorn Scraper No September 20 6:21am Advance Directive Response Recorded Date/ Time Living Will No November 15 5:55pm Power of Broomcorn Scraper No November 15 5:55pm Advance Directive Response Recorded Date/ Time Living Will No December 02 9:59am Power of Broomcorn Scraper No December 02 9:59am Advance Directive Response Recorded Date/ Time Living Will No December 31, 2021 3:47pm Power of Broomcorn Scraper No December 3:47pm Advance Directive Response Recorded Date/ Time Living Will No December 31, 2021 9:47pm Power of Broomcorn Scraper No December 9:47pm Advance Directive Response Recorded Date/ Time Living Will No January 06 2 1:15am Power of Broomcorn Scraper No January 06 022 1:15am Advance Directive Response Recorded Date/ Time Living Will No January 06 2 4:05am Power of Broomcorn Scraper No January 06 4:05am Advance Directive Response Recorded Date/ Time Living Will No February 28 8:34am Power of Broomcorn Scraper No February 28, 2022 8:34am Advance Directive Response Recorded Date/ Time Living Will No March 03 022 7:42pm Power of Broomcorn Scraper No March 03, 2022 7:42pm Advance Directive Response Recorded Date/ Time Living Will No April 16 8:29am Power of Broomcorn Scraper No April 16, 2023 8:29am Advance Directive Response Recorded Date/ Time Living Will No July 26, 2023 12:11pm Power of Broomcorn Scraper No July 25 12:11pm Advance Directive Response Recorded Date/ Time Do you have a Healthcare Power of Broomcorn Scraper? No October 15, 2024 12:43pm Chief Complaint and Reason for Visit Chief [...] SOB Chief Complaint COUGH SOB SHOULDER PAIN Chief Complaint Admit Date chest pain October 15, 2024 12:0 5pm Additional Source Comments (unrecognized sect ion and content) No Status Records FoundNo Status Records FoundNo Status Records FoundNo Status Records FoundNo Status Records Found INFORMATION SOURCE (unrecogn ized section and content) DATE CREATED AUTHOR 10/03/2020 [facility] ([place]) DATE CREATED AUTHOR AUTHOR'S ORGANIZ ATION 05/26/2021 [facility] Milka Rodriguez DATE CREATED AUTHOR AUTHOR'S ORGANIZ ATION 09/01/2023 [facility] DATE CREATED AUTHOR AUTHOR'S ORGANIZ ATION 10/24/2024 [facility] DATE CREATED AUTHOR AUTHOR'S ORGANIZ ATION 10/30/2024 [facility] Goals (unrecognized section and content) Goals may be documented in a n alternate sectionGoals may be documented in an alternate sectionGoals may be documented in an alternate sectionGoals may be documented in an alternate sectionGoals may be documented in an alternate sectionGoals may be documented in an alternate sectionGoals may be documented in an alternate section No data available for this section Care Teams (unrecognized sec tion and [...] Dr. 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 Kenny Wells DO Emergency Provider Active S tart: October 15, 2024 End: October 15, 2024 Reason for Visit (unrecogniz ed section and content) Reason Comments Cough Cough, sneezing, sor e throat, chills, shaking and diarrhea x2 days. Pt states he just can't shake it. Scheduled Active and Recently Administ ered Medications (unrecognized section and content) Medication Order 08/26/2023 08/27/2023 08/28/2023 Azithromycin (ZITHROMAX) tablet 500 mg (COMPLETED) 500 mg, Oral, ONCE, 1 dose, On Thu08/28/23 at [id number] (Given - Provid er: Irma Wilson RN) [...] BASED ON THE PRIMARY CLINICAL RECORDS. [employer] [facility]. provides no warranty or guarantee of the accuracy or completeness of information in this document.
[2024-10-30 23:38] LABS: Hematocrit 49.4 % (40-54); Hemoglobin 17.6 g/dL (13.0-16.5); Immature Granulocytes Count 0.030 X10^3/uL (0.0-0.0); Mean Corp Hgb Conc 35.6 g/dL (32-36); Mean Corpuscular Volume 95.0 fL (80-94); Mean Platelet Vol. 12.1 fl (6.2-12.0); NRBC Flagged by Analyzer 0 % (0-5); POSITIVE COUNT YES; RBC Distribution Width CV 12.2 % (11.6-14.6); RBC Distribution Width SD 42.7 fl (35.1-43.9); Red Blood Count 5.20 M/mm3 (4.6-6.2); White Blood Count 6.5 K/mm3 (4.4-11.0)
[2024-10-30 23:40] LABS: Differential Indicated SCAN CRITERIA MET
[2024-10-30] MEDS: 0.9% Normal Saline (1000mL) 1,000 ML 999 ML IV (23:47)
[2024-10-30] MEDS: fentaNYL 100 MCG/2 ML Ampul 50 MCG IV (23:48)
[2024-10-31 00:10] LABS: AST(SGOT) 20 U/L (<=37); Alanine Aminotransfer ALT/SGPT 27 U/L (<=46); Albumin, Serum 4.5 g/dL (3.5-5.0); Alkaline Phosphatase 61 U/L (40-129); Anion Gap 14 (5-15); BUN 9 mg/dL (4-19); BUN/Creat Ratio 9.1 RATIO (10-20); Calcium,Total 9.4 mg/dL (7.6-11.0); Carbon Dioxide 20.7 mmol/L (21.0-32.0); Chloride 104 mmol/L (98-108); Estimated Creatinine Clearance 92.36 ml/min (50-250); Globulin 2.7 g/dL (2.2-4.2); Glucose 91 mg/dL (70-99); Lipase 22 U/L (13-75); Potassium 3.4 mmol/L (3.3-5.1)
[2024-10-31 00:18] LABS: Differential Comment SCANNED
[2024-10-31 00:55] VITALS: PULSE 55; RESP 18; O2SAT 98
[2024-10-31 01:16] LABS: Mucous, Urine 0 SEEN /hpf (<or=2+); Red Blood Cells-Urine 0 SEEN /hpf (0-5); Squamous Epithelial Cells - UA 0 SEEN /hpf (0-5)
[2024-10-31 01:22] LABS: Color, Urine Yellow (Yellow); Glucose, Dipstick Normal (Normal); Ketone-Dipstick Negative (Negative); Leukocyte Esterase-Dipstick Negative /ul (Negative); Nitrite-Dipstick Negative (Negative); Occult Blood-Urine Negative /ul (Negative); Protein-Dipstick 15 mg/dl (Negative); Specific Gravity, Urine 1.010 (1.002-1.030); Urine Bilirubin Dipstick Negative (Negative)
[2024-10-31 02:16] VITALS: BP 127/82; PULSE 58; RESP 28; O2SAT 98
[2024-10-31 03:07] VITALS: BP 121/81; PULSE 69; RESP 18; TEMP 36.6; O2SAT 99
== END 2024-10-31 03:08 | disposition home or self-care (01) ==
PROVIDERS: Emergency Provider Emergency Medicine; PCP Nurse Practitioner Family; Visit Provider Emergency Medicine
DX: R11.2 Nausea with vomiting, unspecified (principal); R10.10 Upper abdominal pain, unspecified; R19.7 Diarrhea, unspecified; F17.210 Nicotine dependence, cigarettes, uncomplicated; I10 Essential (primary) hypertension; Z90.49 Acquired absence of other specified parts of digestive tract
CPT/HCPCS: 74177; 80053; 81001; 83690; 85025; 96361; 96374; 96375; 99283; Q9967; A4216

== ENCOUNTER → 2024-11-07 | Outpatient (CLI) | payer OTHER, SELFPAY ==
--- NOTE | 2024-11-07 13:16 | MRI_ITS ---
PROCEDURE: MRI ABD WITH AND W/O CONTRAST 11/07/2024 REASON FOR EXAM: HEPATOMEGALY TECHNIQUE: MRI ABD WITH AND W/O CONTRAST Multiplanar and multisequence images were obtained. CONTRAST: Clariscan VOLUME: 17 mL COMPARISON: 10-31-2024 CT FINDINGS: Enlarged liver showing few left hepatic lobe masses, the largest measures 3.9 cm in diameter. They display low T1 and high T2 signal with marginal nodular enhancement and centripetal contrast fill in. other few small right hepatic lobe enhancing lesions are also noted. No extra or intra-hepatic biliary radicles dilatation. The portal vein and hepatic veins apple normal. Distended gall bladder showing no low signal calculi. No related collections. The pancreas and the spleen are normal in size and signal intensity. No obvious focal lesion is identified. Both kidneys are normal in size and position. No hydronephrosis or focal enhancing masses could be seen in both kidneys. Unremarkable adrenal glands, aorta and IVC. Small and large bowel loops appear largely collapsed however, is grossly unremarkable. The stomach shows no significant abnormality. No ascites or collections. No significant lymph node enlargement is seen in the abdomen. The visualized osseous structure shows no marrow infiltrative lesions. MRI/MRI Abd WITH and W/O Contrast IMPRESSION: Hepatomegaly with multiple hepatic masses as detailed, possibly hemangiomata. Reading [facility] [address]
== END | disposition home or self-care (01) ==
PROVIDERS: PCP Nurse Practitioner Family; Referring Provider Nurse Practitioner Family; Visit Provider Nurse Practitioner Family
DX: R16.0 Hepatomegaly, not elsewhere classified (principal)
CPT/HCPCS: 74183; A9575; A4216

== ENCOUNTER 2024-11-25 14:24 | Emergency (ER) | payer OTHER, SELFPAY ==
[2024-11-25 14:25] VITALS: BP 166/111; PULSE 94; RESP 18; TEMP 36.5; O2SAT 100; BMI 27.8
[2024-11-25 14:27] VITALS: BP 166/111; PULSE 94; RESP 18; TEMP 36.5; O2SAT 100
[2024-11-25 15:27] VITALS: BP 156/87; PULSE 73; RESP 18; TEMP 36.6; O2SAT 98
--- NOTE | 2024-11-25 15:35 | VDLE_ITS ---
Reason For Study Reason For Study: RLE Pain RIGHT GSV is normal. CFV is compressible, spontaneous, phasic, competent and demonstrates normal augmentation. FV is compressible, spontaneous, phasic, competent and demonstrates normal augmentation. POP V is compressible, spontaneous, phasic, competent and demonstrates normal augmentation. T/P Trunk is compressible. PTV is compressible. RT PerV is compressible. Procedure This is a venous duplex using B-mode, color flow and spectral Doppler. Exam performed in department. The exam was diagnostic. A preliminary report was called and/or faxed to [facility], RN. VL/Venous Duplex US, Unilateral Interpretation Summary Deep veins of the right lower extremity are patent and compressible segmentally . There is no evidence of right lower extremity deep vein thrombosis. Valvular competence appears intact within the p roximal deep venous system on the right . The right great saphenous vein appears patent and compressible segmentally. Ordering Physician: Herberth Donohue Referring Physician: Makeda Hawkins Performed By: Michael Ruiz RVT
--- NOTE | 2024-11-25 15:36 | EDS_ITS ---
HPI History of Present Illness Chief Complaint: Numb/Ting Informant: patient and spouse/S.O. Narrative Narrative: 2-week history of numbness down the right arm to his thumb and at the scapula. No pain no weakness. Is [id number]. Denies neck pain. No history of similar. Last 2 days redness discomfort distal right lower leg. Pursuing other other mosquitoes around the home. He has been outside. States does itch. Pain today. No speech changes no hemiparesis. Only medical history of asthma per patient. Prior similar symptoms: No PFSH PFSH Medical History Migraines Asthma Internal hemorrhage Hypertension Home Medications ?Medication ?Instructions ?Recorded ?Last Taken ?Type hyoscyamine sulfate 0.125 mg 0.125 - 0.25 mg (1 - 2 x 0.125 mg) 10/31/24 Unknown Rx disintegrating tablet PO Q8H PRN abdominal discomf ort #20 tabs ondansetron 8 mg disintegrating 8 mg PO Q8H PRN nausea and 10/31/24 Unknown Rx tablet vomiting #15 tabs gabapentin 300 mg capsule 300 mg PO QHS #30 caps 11/25 Unknown Rx Allergy/AdvReac Type Severity Reaction Status Date / Time No Known Allergies Allergy Verified 11/25/24 14:25 Family History Other Liver cancer Ovarian cancer Surgical History History of appendectomy Social History household members: spouse Smoking Status: Current every day smoker tobacco type: cigarettes substance use type: does not use ROS ROS ED Constitutional Constitutional ED: Denies fever(s) Cardiovascular Cardiovascular: Denies chest pain Respiratory/Chest Respiratory/Chest: Denies cough Gastrointestinal Gastrointestinal: Denies diarrhea or vomiting Musculoskeletal Musculoskeletal: Reports other Details: Right leg pain and redness Integumentary Denies rash or wounds Neurologic Neurologic: Reports paresthesias; Denies weakness EXAM Physical Exam Const Vital Signs: 11/25/24 14:25 11/25/24 14:27 11/25/24 15:27 Temperature 97.7 F L 97.7 F L 98 F Temperature Source Oral Oral Oral Pulse Rate 94 94 73 Respiratory Rate 18 18 18 Respiratory Effort Blood Pressure 166/111 H 166/111 H 156/87 H Blood Pressure Mean 129 129 110 Pulse Ox 100 100 98 Oxygen Delivery Method Room Air Room Air Room Air 11/25/24 15:27 11/25/24 16:24 Temperature 98 F Temperature Source Pulse Rate 73 Respiratory Rate 18 Respiratory Effort Normal Non-Labored Blood Pressure 156/87 H Blood Pressure Mean 110 Pulse Ox 98 Oxygen Delivery Method Positive well nourished and well developed General Appearance ED: well developed and NAD HEENT Reports moist mucous membranes normocephalic and atraumatic Eyes General Eye ED: Yes normal appearance of both eyes Neck full ROM Neck Narrative: Spurling's positive to the right. Symptoms relief with flexion extension to the left. Chest Wall inspection of chest normal and palpation of chest normal Chest: Negative for tenderness Resp normal respiratory effort and normal air movement Effort and Inspection: symmetric chest movement; Negative for respiratory distress Cardio regular rate, regular rhythm and no murmurs Peripheral Pulses: pulses 2+ throughout GI normal to inspection, nondistended, normoactive bowel sounds and non-tender Palpation: Negative for guarding or rebound tenderness present Extremity Extremity Narrative: Right leg: Slight swelling distal tibia with excoriations and couple areas. There is redness medially. There was distal calf pain. Soft compartments. Pulses intact distally. General Extremety ED: Yes tenderness; Negative for edema General Extremity: Negative for edema Neuro oriented x3 and no sensory deficits noted Neuro Narrative: Strength 5 out of 5 shoulder abduction and elbow extension flexion wrist extension and flexion along with abduction and abduction of the fingers. Sensorium / Orientation: awake and alert Skin Skin Narrative: See above MDM MDM MDM Narrative Medical decision making narrative: Interventions / MDM: Differential diagnosis: C6 peripheral neuropathy on the right, insect bites Diagnosis considered but do not suspect: DVT however ultrasound negative. Evaluation with erythema likely inflammatory as is on day 2 and not infectious. Is afebrile. No drainage. Clinical diagnosis with neuropathy, no stroke symptom concerns. My EKG interpretation: N/A Imaging independently reviewed and interpreted by myself: Right lower extremity ultrasound: Negative for DVT. Cervical x-ray 3 views: C5-C6 disc space narrowing with degenerative changes. Also read by radiology. External documents reviewed: N/A Test considered but not ordered:N/A ED course: Exam clinical C6 neuropathy, there is no weakness. Insert bites on his leg from history increasing swelling mild erythema medially. He has calf pain. Ultrasound ordered. Ultrasound neck for DVT. Discussed inflammatory changes from insect bites on day 2. Discussed using ice as needed to help with pruritic symptoms. Cervical x-ray C5-C6 degenerative changes to space narrowing. He has clinical neuropathy right C6 dermatome. Symptoms improved with sidebending left and flexion. Discussed recommend gabapentin. He will likely need further testing with EMGs and nerve conduction test outpatient. He is followed by PCP. He will make an appointment. He started on gabapentin at night. All questions were answered. Re-evaluation: stable Disposition discussed with patient/family/significant other: Patient and significant other Case discussed with consulting clinician: N/A This note was generated with [employer] software. It may contain incorrect words, spelling, and punctuation that were not noted in checking the note before signing. Radiography Diagnostic Testing: Clinical Impression(s) from Imaging Studies Venous Doppler Study 11/25/24 15:35 Interpretation Summary Deep veins of the right lower extremity are patent and compressible segmentally. There is no evidence of right lower extremity deep vein thrombosis. Valvular competence appears intact within the proximal deep venous system on the right . The right great saphenous vein appears patent and compressible segmentally. Ordering Physician: Herberth Donohue Referring Physician: Makeda Hawkins Performed By: Michael Ruiz, RVT Cervical Spine X-Ray 11/25/24 15:44 IMPRESSION: 1. No acute osseous abnormality. 2. Straightening of the cervical spine, may reflect muscle spasm. 3. Mild degenerative changes. Reading Location: [facility] Discharge Plan Triage Chief Complaint: Numb/Ting Other Complaint: Edema ED Provider: Herberth Donohue Dx/Rx/DC Orders Clinical Impression: Peripheral neuropathy, Insect bite, C6 radiculopathy Instructions: Cervical Radiculopathy, ED Neuropathy, Peripheral, ED Insect Bite Prescriptions: New gabapentin 300 mg capsule 300 mg PO QHS Qty: 30 0RF No Action ondansetron 8 mg tablet,disintegrating 8 mg PO Q8H PRN (Reason: nausea and vomiting) Qty: 15 0RF hyoscyamine sulfate 0.125 mg tablet,disintegrating 0.125 - 0.25 mg PO Q8H PRN (Reason: abdominal discomfort) Qty: 20 0RF Primary Care Provider: Makeda Hawkins Referrals: Makeda Hawkins, MORTGAGE LOAN ASSISTANT-C [Primary Care Provider] - 1-2 Weeks Activity Restrictions/Additional Instructions: Right leg insect bite with swelling. Ultrasound negative for DVT. Do not scratch as it can make it worse. Ice if needed to help with itching. Right arm numbness C6 dermatome pattern concerns for her neuropathy. You have C5-C6 disc narrowing on the cervical x-ray. There is no weakness. Take gabapentin as prescribed follow-up with your doctor for further testing. Print Language: Montserratian Disposition Disposition: Home, Self Care Discharge Date/Time: 11/25/24 16:26
--- NOTE | 2024-11-25 15:44 | RAD_ITS ---
PROCEDURE: CERV SPINE 2 OR 3 VIEWS 11/25/2024 REASON FOR EXAM: RIGHT C6 PARESTHESIA TECHNIQUE: CERV SPINE 2 OR 3 VIEWS COMPARISON: None. FINDINGS: BONES: No fracture or focal osseous lesion. Anatomic spinal alignment. Straightening of the normal cervical lordosis. DISC/DEGENERATIVE CHANGES: Mild disc space narrowing at C5-C6. Small vertebral endplate osteophytes at several levels. SOFT TISSUES: No acute abnormality seen. RAD/Cerv Spine 2 or 3 Views IMPRESSION: 1. No acute osseous abnormality. 2. Straightening of the cervical spine, may reflect muscle spasm. 3. Mild degenerative changes. Reading Location: [id number]
[2024-11-25 16:24] VITALS: BP 156/87; PULSE 73; RESP 18; TEMP 36.6; O2SAT 98
== END 2024-11-25 16:26 | disposition home or self-care (01) ==
PROVIDERS: Emergency Provider Emergency Medicine; PCP Nurse Practitioner Family; Visit Provider Emergency Medicine
DX: M47.22 Other spondylosis with radiculopathy, cervical region (principal); S80.861A Insect bite (nonvenomous), right lower leg, initial encounter; W57.XXXA Bitten or stung by nonvenomous insect and other nonvenomous arthropods, initial encounter; M79.661 Pain in right lower leg; M48.02 Spinal stenosis, cervical region; G62.9 Polyneuropathy, unspecified; I10 Essential (primary) hypertension; J45.909 Unspecified asthma, uncomplicated; F17.210 Nicotine dependence, cigarettes, uncomplicated; Z79.899 Other long term (current) drug therapy
CPT/HCPCS: 72040; 93971; 99283

== ENCOUNTER → 2024-12-23 | Outpatient (CLI) | payer MEDICAID, SELFPAY ==
--- NOTE | 2024-12-23 09:17 | MRI_ITS ---
PROCEDURE: SPINE CERVICAL (ROUTINE) 12/23/2024 REASON FOR EXAM: RADICULOPATHY, CERVICAL REGION TECHNIQUE: Procedure Code: MRISPC Modality: MR Procedure: SPINE CERVICAL (ROUTINE) Multiplanar and multisequence images were obtained without IV contrast administration. COMPARISON: None available FINDINGS: The visualized posterior fossa contents appear within normal limits. Straightening of the cervical spine. The atlantooccipital and atlantoaxial joints appear normally aligned. The cervical vertebral bodies are normal in height. The cervical vertebral bodies are normal in alignment. There is a well-circumscribed T1 hypointense/T2 hyperintense lesion at the C6 vertebral body. This lesion is hyperintense on STIR. The bone marrow signal is otherwise within normal limits. Multilevel disc desiccation. There is no evidence of cervical spinal cord signal abnormality. C2-C3: No significant spinal canal stenosis or neural foraminal narrowing. C3-C4: Central disc protrusion flattens the ventral thecal sac. No significant neural foraminal narrowing. C4-C5: Disc bulge, bilateral facet arthrosis, and uncovertebral spurring. Flattening of the ventral thecal sac. Moderate right neural foraminal narrowing. Intact left neural foramen. C5-C6: Disc bulge, bilateral facet arthrosis, and uncovertebral spurring contribute to moderate spinal canal stenosis. Moderate bilateral neural foraminal narrowing. C6-C7: Disc bulge, bilateral facet arthrosis, and uncovertebral spurring. Mild spinal canal stenosis. Moderate bilateral neural foraminal narrowing. C7-T1: No significant spinal canal stenosis or neural foraminal narrowing. Partially visualized polypoid mucosal thickening in the right maxillary sinus. MRI/Spine Cervical (Routine) IMPRESSION: Cervical spondylosis most prominent at C5-C6 where there is moderate spinal can al and neural foraminal stenosis. Well-circumscribed T1 hypointense/T2 hyperintense lesion at the C6 vertebral bharath dy may reflect an atypical osseous hemangioma. Reading Location: [id number]
== END | disposition home or self-care (01) ==
PROVIDERS: PCP Nurse Practitioner Family; Referring Provider Nurse Practitioner Family; Visit Provider Nurse Practitioner Family
DX: M54.12 Radiculopathy, cervical region (principal)
CPT/HCPCS: 72141

== ENCOUNTER 2025-01-11 17:14 | Emergency (ER) | payer MEDICAID, SELFPAY ==
[2025-01-11 17:14] VITALS: BP 146/105; PULSE 93; RESP 18; TEMP 36.6; O2SAT 99
[2025-01-11 18:14] VITALS: PULSE 78; RESP 18; O2SAT 97
--- NOTE | 2025-01-11 18:41 | EDS_ITS ---
HPI History of Present Illness Chief Complaint: Other, Pain/Inj Narrative Narrative: 45-year-old male past medical history of known cervical myelopathy and C6 cervical radiculopathy affecting his right upper extremity presents with frequent falls and increasing pain/burning pain of his right arm. He states that whenever he turns his head a certain way, he will get increased pain, and he causes him to fall. He and his fianc?e state that he was recently seen by his pain management doctor Dr. Rose and he is currently taking gabapentin 300 mg 3 times a day. He also saw the PA at Dr. Villagran's office, and they are urgently trying to schedule surgery for his cervical radiculopathy. He denies any fevers or chills, no recent trauma. He states he was told that if his symptoms are worsening that he needs to come to the emergency department. [facility] Medical History Migraines Asthma Internal hemorrhage Hypertension Home Medications ?Medication ?Instructions ?Recorded ?Last Taken ?Type albuterol sulfate 90 mcg/actuation 2 puff inhalation Q 4-6H PRN dyspnea 01/05/25 Unknown History aerosol inhaler gabapentin 300 mg capsule 300 mg PO BID #60 caps 01/05 Unknown Rx pregabalin 150 mg capsule 150 mg PO BID 01/05/25 Unkno wn History gabapentin 100 mg capsule 100 mg PO TID 01/11/25 Unkno wn History methylprednisolone 4 mg tablets in See Rx Instructions PO .COMPLEX 01/11/25 Unknown Rx a dose pack (Medrol (Karsten)) #21 tabs Allergy/AdvReac Type Severity Reaction Status Date / Time No Known Allergies Allergy Verified 01/11/25 17:14 Family History Other Liver cancer Ovarian cancer Surgical History History of appendectomy Social History household members: spouse Smoking Status: Current every day smoker tobacco type: cigarettes substance use type: does not use ROS ROS ED ROS Narrative Review of systems positive for right arm weakness, right sided cervical radicular pain, burning. No fevers or chills. Positive frequent falls. No injury. No alleviating factors. EXAM Physical Exam Narrative Exam Narrative: Afebrile. Vital signs noted. Nontoxic-appearing. Cardiovascular examination reveals a regular rate and rhythm. Lungs are clear to auscultation bilaterally. Abdomen soft and nontender. Examination of the right upper extremity does show undercoater strength on the right 4 out of 5 as compared to 5 out of 5 on the left. He has full range of motion of his right upper extremity. No vertebral point tenderness or bony step-off of neck. Const Vital Signs: 01/11/25 17:14 01/11/25 17:23 01/11/25 18:14 Temperature 97.9 F Temperature Source Temporal Pulse Rate 93 78 Respiratory Rate 18 18 Respiratory Effort Normal Non-Labored Respiratory Pattern Normal Blood Pressure 146/105 H Blood Pressure Mean 118 Pulse Ox 99 97 Oxygen Delivery Method Room Air Room Air MDM MDM MDM Narrative Medical decision making narrative: I feel this is an exacerbation of his cervical radiculopathy that is known, and chronic. I do not feel differential is applicable otherwise. I reviewed his outpatient visit, and they are urgently trying to schedule surgery for him as he was last seen on 01/05/2025, approximately 6 days ago. I discussed the patient with Dr. Villagran, who suggested either having the patient medically admitted for placement and senior living facility/rehab if he is having that frequent falls. Additionally, he suggested outpatient treatment with a Medrol Dosepak and a soft collar. In discussion with the patient and his fianc?e, he does not want to be observed for placement, but they did inquire about outpatient rehab. They were referred to orthopedics or their primary care provider regarding this. He is agreeable to Medrol Dosepak and soft collar and follow-up with orthopedic spine. I also suggested that he follow-up with his pain management physician and inquire about stronger pain medications. At this point in time, I do not feel he needs laboratory work or repeat imaging as he has had a recent MRI. Return instructions to the emergency department were reviewed. Patient agreeable to the plan. Disposition is discharged home in stable condition. History & Record Review Additional record(s) reviewed:: Prior outpatient record Management Discussion w/another healthcare provider: Manager Steel (Orthopedic spine surgery, Dr. Villagran) Discharge Plan Triage Chief Complaint: Other, Pain/Inj ED Provider: Junior Johnson Dx/Rx/DC Orders Clinical Impression: Cervical myelopathy with cervical radiculopathy, C6 radiculopathy, Right arm weakness Instructions: ED Radiculopathy, Cervical Prescriptions: New methylprednisolone [Medrol (Karsten)] 4 mg tablets,dose pack See Rx Instructions .ROUTE .COMPLEX Qty: 21 0RF Rx Instructions: for 6 days No Action albuterol sulfate 90 mcg/actuation HFA aerosol inhaler 2 puff inhalation Q4-6H PRN (Reason: dyspnea) pregabalin 150 mg capsule 150 mg PO BID gabapentin 300 mg capsule 300 mg PO BID Qty: 60 0RF gabapentin 100 mg capsule 100 mg PO TID Primary Care Provider: Makeda Hawkins Referrals: Etienne Rose MD [Med Staff - Active Staff, Pain Management] - As soon as possible Adan Villagran MD [Med Staff - Active Staff, Orthopedics] - 3-5 Days if not improving Makeda Hawkins, [facility] [Primary Care Provider, Family Practice] Activity Restrictions/Additional Instructions: Take the Medrol Dosepak as directed. Wear soft collar for support. Return with fever, new or worsening symptoms. Discussed with your primary care provider or orthopedics about outpatient rehabilitation. Print Language: Singaporean Disposition Disposition: Home, Self Care
[2025-01-11 19:00] VITALS: BP 138/92; PULSE 76; RESP 18; TEMP 36.7; O2SAT 98
== END 2025-01-11 19:08 | disposition home or self-care (01) ==
LOC: ED 18:52
PROVIDERS: Emergency Provider Emergency Medicine; PCP Nurse Practitioner Family; Visit Provider Emergency Medicine
DX: M54.12 Radiculopathy, cervical region (principal); G95.9 Disease of spinal cord, unspecified; R29.6 Repeated falls; I10 Essential (primary) hypertension; J45.909 Unspecified asthma, uncomplicated; F17.210 Nicotine dependence, cigarettes, uncomplicated; Z79.899 Other long term (current) drug therapy
CPT/HCPCS: 99282

== ENCOUNTER 2025-01-18 09:40 | Day surgery (SDC) | payer OTHER, MEDICAID, SELFPAY ==
--- NOTE | 2025-01-16 08:24 | EKG12_ITS ---
Test Reason : PREOP Blood Pressure : */* mmHG Vent. Rate : 68 BPM Atrial Rate : 68 BPM P-R Int : 182 ms QRS Dur : 82 ms QT Int : 386 ms P-R-T Axes : 24 14 26 degrees QTcB Int : 410 ms Normal sinus rhythm Normal ECG Confirmed by LUDIVINA GUERRA, PHILLIP ([id number]), story editor BRIAN CASTELLANOS ([id number]) on 01/17/2025 7:36:35 AM Referred By: Adan Villagran Confirmed By: PHILLIP FLORENCE MD
[2025-01-16 09:25] LABS: Hematocrit 49.9 % (40-54); Hemoglobin 17.7 g/dL (13.0-16.5); Immature Granulocytes Count 0.080 X10^3/uL (0.0-0.0); Mean Corp Hgb Conc 35.5 g/dL (32-36); Mean Corpuscular Volume 96.3 fL (80-94); Mean Platelet Vol. 11.9 fl (6.2-12.0); NRBC Flagged by Analyzer 0 % (0-5); Platelet Count 203 K/mm3 (150-450); RBC Distribution Width CV 12.0 % (11.6-14.6); RBC Distribution Width SD 42.9 fl (35.1-43.9); Red Blood Count 5.18 M/mm3 (4.6-6.2); White Blood Count 8.5 K/mm3 (4.4-11.0)
[2025-01-16 10:15] LABS: Magnesium 2.4 mg/dL (1.5-2.2)
[2025-01-18] VITALS (15 sets, daily range): BP systolic 130–196; BP diastolic 86–145; PULSE 78–97; RESP 16–93; TEMP 36.1–37.1; O2SAT 92–99; BMI 29.9
--- NOTE | 2025-01-18 10:24 | PRE.ANES_ITS ---
ASA Classification* ASA Classification ASA Classification: 2 Assessment & Plan Anesthesia* Anesthesia Assessment Anesthesia Assessment: Discussed sedation and/or anesthesia options, risks, benefits, and alternatives with patient/parents/legal guardian/POA. Questions invited. The patient/parents/legal guardian/POA seems to understand and agrees to proceed with anesthesia plan. Reviewed the physical assessment, medical history, allergy history and patient home medications list prior to surgery/procedure/anesthetic and documented any changes. Performed airway and anesthesia risk assessments. Anesthesia Type Anesthesia Type: General History Source History Obtained from:: Patient and Chart Anesthesia Focused Assessment* Oxygen Delivery Method: Room Air Airway Assessment Mouth opens: >3 cm Mallampati Score: II Teeth Condition: Missing Neck Range of motion (ROM): Limited ROM Labs Anesthesia Preop lab: CBC WBC, (4.4-11.0) 8.5 K/mm3 01/16/25, 08:26 RBC, (4.6-6.2) 5.18 M/mm3 01/16/25, 08: Hgb, (13.0-16.5) 17.7 g/dL H 01/16/25, 08:26 Hct, (40-54) 49.9 % 01/16/25, 08:26 Plt Count, (150-450) 203 K/mm3 01/16/25, 08:26 CHEMISTRY Potassium, (3.3-5.1) 3.4 mmol/L 10/30/24, 23:30 Sodium, (133-145) 138 mmol/L 10/30/24, 23:30 Magnesium, (1.5-2.2) 2.4 mg/dL H 01/16/25, 08:26 Phosphorus, (2.5-4.9) 2.8 mg/dL 01/07/22, 06:15 BUN, (4-19) 9 mg/dL 10/30/24, 23:30 Creatinine, (0.70-1.20) 1.01 mg/dL 10/30/24, 23:30 Glucose, (70-99) 91 mg/dL 10/30/24, 23:30 COAG PT, (11.7-14.9) 12.7 SECONDS 05/02/24, 01:33 Pre-Assessment Diagnosis/Proposed Procedure Planned Operative Procedure(s): Anterior Cervical Fusion C5-6 and C6-7 Anesthesia History 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 When Was Last Pacemaker Check QUESTION #4 FULL TEXT: You/Your Family Experience fever (hyperthermia) with Anesthesia Last Oral Intake Last Oral intake: Last Oral Intake NPO since Meds taken in AM with sips of water? Meds patient instructed to take am of surgery PONV PONV - government relations director: PONV - government relations director Female No 01/13/25 12:39 HX of Motion Sickness No 01/13/25 12:39 HX of N/V After Surgery No 01/13/25 12:39 Non-Smoker No 01/13/25 12:39 Duration of Surgery greater Yes 01/13/25 12:39 than 60 minutes Number of Risk Factors 1 01/13/25 12:39 PONV Score Low Risk 01/13/25 12:39 Height & Weight Height & Weight: Anesthesia: Height & Weight Height 5 ft 9 in 01/16/25 14:42 Respiratory Assessment Respiratory Assessment - government relations director: Respiratory Tract Infection Hx - government relations director Hx Respiratory Tract Infection No 01/13/25 12:39 STOP Sleep Apnea STOP Sleep Apnea - government relations director: STOP Sleep Apnea - government relations director Hx Hypertension Yes 01/13/25 12:39 Hx Sleep Apnea No 01/13/25 12:39 CPAP BIPAP Do you snore loudly (louder Yes 01/13/25 12:39 than talking or can be heard Do you often feel tired/ No 01/13/25 12:39 fatigued/ sleepy during daytime? Has anyone observed you stop No 01/13/25 12:39 breathing during sleep? STOP Results Positive 01/13/25 12:39 QUESTION #5 FULL TEXT : Do you snore loudly (louder than talking or can be heard through closed doors)? 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 Specify any problems Hx of Preganancy in last 3 N/A 01/13/25 12:39 Months Nurse Filling Out Transfusion MGRIFFITH 01/13/25 12:39 & Questions: Date: 01/13/25 01/13/25 12:39 Time: 12:41 01/13/25 12:39 Patient unable to answer at this time (ie. confused, unrespo /Reproduction History /Reproductive History - government relations director: /Reproductive Hx- government relations director Hx Now No 01/13/25 12:39 Gestational Age (in weeks): EDC: Hx Hx Para Hx Section SAB No 01/13/25 12:39 Active Medications Active Medications: Current Medications Generic Name Dose Route Start Last Admin Trade Name Freq PRN Reason Stop Dose Admin Acetaminophen 1,000 mg 01/18/25 12:15 Acetaminophen 500 Mg Tablet PO 01/18/25 12:16 PREOP ONE Dexamethasone Sodium Phosphate 8 mg 01/18/25 12:15 Dexamethasone 10 Mg/Ml Vial IV 01/18/25 12:16 INTRAOP ONE Dexamethasone Sodium Phosphate 4 mg 01/18/25 13:15 Dexamethasone 4 Mg/Ml Vial IV 01/18/25 13:16 POSTOP ONE Cefazolin Sodium 2 gm/ Sodium 110 mls @ 150 mls/hr 01/18/25 12:15 Chloride IV 01/18/25 12:58 INTRAOP ONE Tranexamic Acid 1,000 mg/ 110 mls @ 440 mls/hr 01/18/25 12:15 Sodium Chloride IV 01/18/25 12:29 INTRAOP ONE Tranexamic Acid 1,000 mg/ 110 mls @ 440 mls/hr 01/18/25 13:15 Sodium Chloride IV 01/18/25 13:29 INTRAOP ONE Lactated Ringer's 1,000 mls @ 15 mls/hr 01/18/25 10:00 IV .Q48H TAYLOR Insulin Human Lispro 1 - 6 unit 01/18/25 12:15 Insulin Lispro 100 Unit/Ml Insuln.Pen SC 01/18/25 18:15 Q4H PRN PRN BG>/= 180, SEE PROTOCOL Protocol PFSH Medical History Obesity (BMI 30-39.9) Wears glasses History of steroid therapy Smoker Migraines Asthma Internal hemorrhage Hypertension Home Medications ?Medication ?Instructions ?Recorded ?Last Taken ?Type albuterol sulfate 90 mcg/actuation 2 puff inhalation Q 4-6H PRN dyspnea 01/05/25 Unknown History aerosol inhaler gabapentin 300 mg capsule 300 mg PO BID #60 caps 01/05 Unknown Rx gabapentin 100 mg capsule 100 mg PO TID 01/11/25 Unkno wn History methylprednisolone 4 mg tablets in See Rx Instructions PO .COMPLEX 01/11/25 Unknown Rx a dose pack (Medrol (Karsten)) #21 tabs Allergy/AdvReac Type Severity Reaction Status Date / Time No Known Allergies Allergy Verified 01/18/25 09:56 Family History Other Liver cancer Ovarian cancer Surgical History History of tonsillectomy History of appendectomy Social History household members: spouse Smoking Status: Current every day smoker tobacco type: cigarettes substance use type: does not use Review of Systems (Anesthesia) ROS Narrative System reviewed and no additional complaints, except as documented.
[2025-01-18] MEDS: Lactated Ringers 1,000 ML 15 ML IV (10:34)
[2025-01-18 10:43] LABS: AST(SGOT) 35 U/L (<=37); Alanine Aminotransfer ALT/SGPT 46 U/L (<=46); Albumin, Serum 4.3 g/dL (3.5-5.0); Alkaline Phosphatase 50 U/L (40-129); Anion Gap 10 (5-15); BUN 18 mg/dL (4-19); BUN/Creat Ratio 17.5 RATIO (10-20); Calcium,Total 9.0 mg/dL (7.6-11.0); Carbon Dioxide 24.4 mmol/L (21.0-32.0); Chloride 104 mmol/L (98-108); Estimated Creatinine Clearance 101.40 ml/min (50-250); Globulin 2.7 g/dL (2.2-4.2); Glucose 207 mg/dL (70-99); Potassium 4.2 mmol/L (3.3-5.1)
--- NOTE | 2025-01-18 11:16 | PCM.HP.BLA ---
History and Physical MR#: [id number] Acct: [id number] Name: ANDREW SHAH Jr. Rep #: [id number] : 1980 Provider: Dr. Adan Villagran MD Age/Sex: 45/M Location[place] [facility] [place] Status: Signed Intake Vital Signs 01/11/2517:14 01/16/2514:42 Height 5 ft 9 in 5 ft 9 in Weight: 205 lb BMI 30.2 BP 146/105 H Respiration 18 Pulse 93 Temp 97.9 F Temp Source Temporal Pulse Oximetry (%) 99 Intake Visit Reasons: cervical spine Chief Complaint: cervical spine Accompanied by: Is patient in pain?: Yes (right side neck ) Pain scale (1-10): 6 Allergies No Known Allergies Allergy (Verified 01/16/25 14:42) Medications ?Medication ?Instructions ?Recorded ?Confirmed ?Type albuterol sulfate 90 mcg/actuation 2 puff inhalation Q4-6H PRN dyspnea 01/05/25 01/16/25 History aerosol inhaler gabapentin 300 mg capsule 300 mg PO BID #60 caps 01/05/25 01/16/25 Rx gabapentin 100 mg capsule 100 mg PO TID 01/11/25 01/16/25 History methylprednisolone 4 mg tablets in See Rx Instructions PO .COMPLEX 01/11/25 01/16/25 Rx a dose pack (Medrol (Karsten)) #21 tabs PFSH Medical History (Updated 01/16/25 @ 15:00 by Yojana Mary RN) Obesity (BMI 30-39.9) Wears glasses History of steroid therapy Smoker Migraines Asthma Internal hemorrhage Hypertension Surgical History History of tonsillectomy History of appendectomy Family History Other Liver cancer Ovarian cancer Social History household members: spouse Smoking Status: Current every day smoker tobacco type: cigarettes substance use type: does not use HPI cervical spine Details: This documentation accurately reflects the service provided and the decisions made by me, Dr. Adan Villagran MD 01/16/25 2195. Part of today?s visit was documented by [ ], acting as scribe. ANDREW SHAH is a 45 year old M here today for neck pain x months right side neck, pain is described as sharp, traveling down to right arm. pain is worse with ROM. patient states no injury to the neck. treating pain with neck brace, PRN tylenol. The patient is a 45-year-old male presenting for preoperative evaluation and management of cervical radiculopathy. The cervical radiculopathy symptoms began earlier this year, with the patient experiencing pain primarily on the right side of the neck radiating down the arm. The patient reports that wearing a cervical collar has provided some relief for the neck pain, although it did not alleviate associated weakness. The patient has experienced falls but denies any head or neck injuries from these incidents. The patient has a history of asthma, managed with albuterol as needed. He denies any history of diabetes, heart problems, or lung problems other than asthma. The patient smokes less than half a pack of cigarettes per day, which may impact surgical outcomes and healing. - Neurological: Reports neck pain radiating to the right arm, denies weakness improvement with collar use. - Respiratory: Reports asthma, denies other lung problems. - Cardiovascular: Denies heart problems. - Endocrine: Denies diabetes. Attestation: Documentation on this patient encounter was supported using ambient scribe technology/ voice AI technology. The patient consented to recording for the purpose of documenting the encounter. Provider reviewed content of the generated note prior to signature. 01/05/25: ANDREW SHAH is a 44 year old M here today for cervical spine pain. He reports a several month history of cervical spine pain that is progressively been getting worse. The right side of his neck is the worst. The pain does extend down the right arm and he reports numbness and tingling into his finger tips. He reports a change in his balance recently and he has fallen a few times. He reports dexterity issues and has been dropping items from his hands. Dropping things such as bottles, toys, phones. Pain down the back of the right arm to the thumb which is numb. He has not done PT. He does have his first appointment scheduled with Dr. Rose on the . He takes gabapentin 100mg 3x a day, no benefit. Been taking 800-1000mg of ibuprofen without benefit. Says that his last fall was yesterday and he fell out of the bathtub. No diabetes, hx of asthma, managed by PCP no oxygen, no blood thinners. Coding Level of Care Code Off vis,est,level 4 Diagnoses Cervical myelopathy with cervical radiculopathy G95.9; M54.12 Obesity (BMI 30-39.9) E66.9 Time Spent (min) 35 Assessment and Plan Assessment and Plan (1) Cervical myelopathy with cervical radiculopathy: Status: Acute (2) Obesity (BMI 30-39.9): Status: Acute Plan Xrays show straightening of the normal cervical lordosis. Multilevel disc height loss. No significant instability on dynamic views. No fracture. MRI from 12/23/24 shows C5-C6: Disc bulge, bilateral facet arthrosis, and uncovertebral spurring contribute to moderate spinal canal stenosis. Moderate bilateral neural foraminal narrowing. C6-C7: Disc bulge, bilateral facet arthrosis, and uncovertebral spurring. Mild spinal canal stenosis. Moderate bilateral neural foraminal narrowing. At C5-6 there is some brightening of the cord which indicates some cord edema. 1. Cervical radiculopathy with myelopathy - The patient is scheduled for anterior cervical discectomy and fusion at C5-6 and C6-7 to relieve nerve compression. 2. Asthma - Continue current management with albuterol as needed. - Wear the cervical collar as instructed, removing it only for cleaning. - Attend follow-up appointments as scheduled, including the two-week postoperative visit. - Avoid smoking to improve surgical outcomes and healing. - Use albuterol as needed for asthma symptoms. Explained the imaging findings in detail. Discussed options today which includes a C5-7 ACDF. The patient is myelopathic which has been worsening over the last several months. On exam he has severe ataxia with tandem gait and says that he has had to used a cane at times to help. He has had several falls from the ataxia. He is also weak in his right arm which shows a neurological deficit. Expained that myelopathy is a progressively worsening issue. Explained the surgery in detail. Discussed this procedure in detail and explained the risks, benefits and alternatives. The risks of surgery include but are not limited to infection, bleeding, injury to nerves and vessels, hematoma formation, dysphagia, dysphonia, recurrent laryngeal nerve injury, Alok syndrome, DVT, pulmonary embolism, pneumonia, atelectasis, cardiopulmonary event, pseudoarthrosis, hardware failure, adjacent segment degeneration, need for further surgery, nerve root injury, spinal cord injury. Answered all questions to the patient?s satisfaction. Patient understands and agrees to proceed with surgery. Consent was signed.Follow up two weeks post operatively or sooner if pain, swelling, numbness or associated symptoms, or concerns develop. All questions answered. Patient in agreement of plan. Ortho Exam General General: Yes no acute distress Neurologic: Yes alert and Yes oriented x3 Psychologic: Yes reasonable and appropriate Spine SPINE TESTING CERVICAL THORACIC LUMBAR Musculoskeletal Strength 0=absent - 5=normal Details: Neurological exam of the upper extremities shows grade 4 right core maker helper strength, triceps all other muscle groups shows 5 power. Normal sensation across all dermatomes. No hyperreflexia. Cierra's negative. There midline and right sided paraspinal tenderness. Romberg's positive. Tandem gait shows severe ataxia.
[2025-01-18] MEDS: fentaNYL 100 MCG/2 ML Ampul IV (11:51)
[2025-01-18] MEDS: Cefazolin 1 GM/5 ML Vial 2 GM IV (11:53)
--- NOTE | 2025-01-18 11:55 | RAD_ITS ---
PROCEDURE: CERV SPINE 2 OR 3 VIEWS 01/18/2025 REASON FOR EXAM: ANTERIOR CERVICAL FUSION C5-6, C6-7 TECHNIQUE: Procedure Code: RADSPCL Modality: DX Procedure: CERV SPINE 2 OR 3 VIEWS FINDINGS: Intraoperative fluoroscopy was performed. 6 images. 15.2 seconds of fluoroscopic time. 2.33 mGy. See procedure report for full details. RAD/Cerv Spine 2 or 3 Views IMPRESSION: As above. Disclaimer: Reading Location: [id number]
[2025-01-18] MEDS: Lidocaine 1% (5 ml sdv) 5 ML Vial IV (11:57)
[2025-01-18] MEDS: PROPOFOL 86.18 MG IV (12:08)
[2025-01-18] MEDS: REMIFENTANIL HCL 1 MG VIAL 1.25 MG IV (14:04)
[2025-01-18] MEDS: TRANEXAMIC ACID 1,000 MG/10 ML ML 2000 MG IV (14:05)
--- NOTE | 2025-01-18 14:50 | POSTOP.ANE_ITS ---
Anesthesia: Postop Eval I Current Vital Signs Temperature: 97 F Pulse Rate: 97 Blood Pressure: 179/123 (Patient complaining of 8/10 pain. PLUMBER PIPE FITTING treating the pain. Anesthesiologist notified.) Respiratory Rate: 16 Pulse Ox: 98 Oxygen Delivery Method: Nasal Cannula (4L for ERAS protocol) Oxygen Flow Rate (L/min): 4 Assessment Airway patent: Yes Spontaneous unlabored respirations: Yes Mental status: Awake and Apprehensive nausea: No Vomiting: No Anesthesia Complication: No Fluid Hydration Crystalloid volume administer (ml): 900 Total IV fluid infused: 900 Progress Note Anesthesia document: Postop Eval 1 completed: Yes
--- NOTE | 2025-01-18 14:59 | PCM.OPRPT ---
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, radiculomyelopathy Post-Operative Diagnosis: Same Surgery/Procedure Performed: C5-7 ACDF overnight cashier: Yes Shotblast Operator: Maricel Mcintyre Tasks completed by assistant track and field coach: Closing, Removing tissue, Implanting device, Hemostasis: Electrocautery and Retracting Type of Anesthesia: General RN Documented Start/Stop Times: Operation Date: 01/18/25 11:45 Case Time Into Pre-Op 01/18/25 09:56 Anesthesia Start 01/18/25 11:50 Into Room 01/18/25 11:50 Out of Pre-Op 01/18/25 11:52 Procedure Start 01/18/25 12:25 Procedure End 01/18/25 14:33 Anesthesia End 01/18/25 14:43 Out of Room 01/18/25 14:43 Procedure Start Time: 12:25 Procedure Stop Time: 14:33 Select all DRAINS/GRAFTS/IMPLANTS that apply: Graft Graft details: Structural allograft corticocancellous strut, DBX and Implanted device Implanted device details: Medtronic Elsie Elite plate instrumentation Estimated Blood Loss: 30 cc Specimen collected: No Description of surgery: Preoperative diagnosis: 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 Anesthesia: Gen. endotracheal Estimated blood loss: 30 mL Complications: None Instrumentation used: Medtronic Elsie Elite plate, LASR corticocancellous block Indications: The patient is a pleasant 45-year-old gentleman who presented with right worse than left upper extremity radiation of pain and numbness and weakness, worsening dexterity and balance. MRI showed C5-6 and C6-7 disc degeneration with mild central and severe right worse than left foraminal stenosis. In order to halt the progression of myelopathy, the patient requested surgical treatment. All risks and benefits of the procedure were explained to the patient. The risks include but are not limited to infection, bleeding, injury to nerves and vessels, vertebral artery injury, spinal cord injury, paralysis, vocal cord paralysis, injury to esophagus, pseudoarthrosis, need for further procedures, adjacent segment degeneration. Procedure: The patient was identified in the preoperative suite using unique patient identifiers. Skin was marked consent was taken and all questions were answered. The patient was then brought back to the operative room and a timeout was performed. General endotracheal anesthesia was given. Intraoperative neuro monitoring leads were applied. The patient was carefully positioned supine on a regular OR table. A lateral view with a C-arm was done to identify the level and to define the incision. The anterior neck was then prepped and draped in the usual fashion. A final timeout was then performed. A transverse skin incision was taken to the left of midline. Subcutaneous tissue was then divided with Bovie. Platysma was identified and cut along the incision with scissors. The fascial interval between the sternocleidomastoid and the larynx was developed. Omohyoid was identified and retracted. The esophagus with the larynx was retracted medially to reach the prevertebral fascia. Marker x-ray was performed with bent spinal needle and disc space and levels were confirmed. Longus coli muscle was elevated on both sides at and above and below C5-7 discs. Self-retaining retractors were then placed. A long handle knife was then used to perform annulotomy at C5-6. Disc fragments were removed with the pituitary. Fontana pins were placed in C5 and C6 for disc distraction. Curettes and bur was utilized to remove cartilage from the endplates. Discectomy was performed laterally up to the uncovertebral joints. Posterior osteophytes were thinned down with the bur and adequate decompression in the central and foraminal areas were performed and PLL was thinned out. Once the disc space was prepared, trials of various sizes were utilized. Thorough irrigation was given. 7 mm LASR cortical cancellous allograft bone large footprint was then fashioned in such a way that concavities were burred out inferiorly and superiorly and half cc of DBX (demineralized bone matrix) was squeezed into the cancellous portion. The graft was then inserted into the C5-6 disc space. The retractors were then repositioned and the procedure was repeated for C6-7 disc with complete discectomy. Graft size was 7 mm at with large footprint at C6-7. The grafts were found to be in good apposition with good pullout strength. A 45 mm Medtronic Elsie Elite plate was then fixed to C5-7 with 16 mm screws. A lateral x-ray was then taken to check the length of the screws. Both AP and lateral x-rays showed good positioning of plate and screws. The locking mechanism over the screw heads was then turned. Thorough irrigation was again given. Hemostasis was achieved. Closure was done with 3-0 Vicryl for the platysma and subcutaneous tissue layers and 4-0 Monocryl for the skin. Steri-Strips were applied and dressing was done with 4 x 4 gauze and Tegaderm. A cervical collar was then applied. The patient was then woken up from anesthesia extubated and taken to PACU in stable condition. From here, the patient will be transitioned to the floor. Intraoperative neuro monitoring was performed throughout this procedure. Motor evoked potentials were run periodically. All potentials remained at baseline throughout the procedure. I was present for the entire surgery and performed the surgery myself. Mechanical Design Engineer Maricel Mcintyre PA-C. My physician regulatory affairs assistant was a vital part of this case. They were important in appropriate retraction during the case, and protection of soft tissues during the procedure. Their intimate knowledge of the case and my steps aided in safe and expedient completion of the procedure as well as appropriate position of the patient during the surgery. They were also vital in assisting with closure under my direct supervision. Surgical Findings: See operative note Complications Complications: No
--- NOTE | 2025-01-18 15:41 | SUR.PHASEI ---
PATIENT ARRIVED IN PACU AT 14:48. PATIENT IMMEDIATELY REQUESTED AT HOME INHALER. DR CASTELLANOS, ANESTHESIA CALLED TO CHECK IF PATIENT COULD USE AT HOME INHALER, WHICH HE AGREED TO.
--- NOTE | 2025-01-18 16:05 | POSTOPAN2_ITS ---
Anesthesia Postop Eval I Sum Postop Eval Completion status Anesthesia document: Postop Eval 1 completed: Yes Anesthesia Postop Eval I Summary Anesthesia Postop Eval I Summary: Anesthesia Postop Eval I: Assessment Summary Airway patent Yes 01/18/25 14:53 UNDERCUTTER [email or web address].[email or web address] Spontaneous unlabored Yes 01/18/25 14:53 UNDERCUTTER OPERATOR.[email or web address] respirations Mental status Awake,Apprehensive 01/18/25 14:53 UNDERCUTTER OPERATOR.[email or web address] nausea No 01/18/25 14:53 UNDERCUTTER OPERATOR.[email or web address] Vomiting No 01/18/25 14:53 UNDERCUTTER OPERATOR.[email or web address] Anesthesia Postop Eval I: Fluid Summary Crystalloid volume administer 900 01/18/25 14:53 UNDERCUTTER [email or web address].GDOTT (ml) Colloids volume administered ( ml) Blood Product volume administered (ml) Total IV fluid infused 900 01/18/25 14:53 UNDERCUTTER OPERATOR.GDOTT Anesthesia Postop Eval I: Summary Notes Anesthesia Complication No 01/18/25 14:53 UNDERCUTTER OPERATOR.GDOTT Anesthesia Complication Comment: Post-operative progress note Anesthesia: Postop Eval II Evaluation Mental status: Awake and Calm Pain Level: 1 nausea: No Vomiting: No Complications Anesthesia Complication: No
--- NOTE | 2025-01-18 16:05 | PCM.POSTANE2 ---
Anesthesia Postop Eval I Sum Postop Eval Completion status Anesthesia document: Postop Eval 1 completed: Yes Anesthesia Postop Eval I Summary Anesthesia Postop Eval I Summary: Anesthesia Postop Eval I: Assessment Summary Airway patent Yes 01/18/25 14:53 ARTIFICIAL LOG MACHINE OPERATOR.[email or web address] Spontaneous unlabored Yes 01/18/25 14:53 ARTIFICIAL LOG MACHINE OPERATOR.GDOTT respirations Mental status Awake,Apprehensive 01/18/25 14:53 ARTIFICIAL LOG MACHINE OPERATOR.GDOTT nausea No 01/18/25 14:53 ARTIFICIAL LOG MACHINE OPERATOR.GDOTT Vomiting No 01/18/25 14:53 ARTIFICIAL LOG MACHINE OPERATOR.GDOTT Anesthesia Postop Eval I: Fluid Summary Crystalloid volume administer 900 01/18/25 14:53 ARTIFICIAL LOG MACHINE OPERATOR.GDOTT (ml) Colloids volume administered ( ml) Blood Product volume administered (ml) Total IV fluid infused 900 01/18/25 14:53 ARTIFICIAL LOG MACHINE OPERATOR.GDOTT Anesthesia Postop Eval I: Summary Notes Anesthesia Complication No 01/18/25 14:53 ARTIFICIAL LOG MACHINE OPERATOR.GDOTT Anesthesia Complication Comment: Post-operative progress note Anesthesia: Postop Eval II Evaluation Mental status: Awake and Calm Pain Level: 1 nausea: No Vomiting: No Complications Anesthesia Complication: No
--- NOTE | 2025-01-18 16:14 | SUR.PHASEI ---
PATIENT REFUSES TO WEAR ERAS PROTOCOL O2 AT 4L/NC AND USE HEATING BLANKET
== END 2025-01-18 17:27 | disposition home or self-care (01) ==
LOC: SDC 09:41 → AC 09:44
PROVIDERS: PCP Nurse Practitioner Family; Referring Provider Orthopaedic Surgery Orthopaedic Surgery of the Spine; Visit Provider Orthopaedic Surgery Orthopaedic Surgery of the Spine
PROC: (CPT 22551; principal; 2025-01-18 11:15)
DX: M50.022 Cervical disc disorder at C5-C6 level with myelopathy (principal); M50.023 Cervical disc disorder at C6-C7 level with myelopathy; M50.122 Cervical disc disorder at C5-C6 level with radiculopathy; M50.123 Cervical disc disorder at C6-C7 level with radiculopathy; M48.02 Spinal stenosis, cervical region; I10 Essential (primary) hypertension; J45.909 Unspecified asthma, uncomplicated; E66.9 Obesity, unspecified; F17.210 Nicotine dependence, cigarettes, uncomplicated; Z79.899 Other long term (current) drug therapy
CPT/HCPCS: 22551; 22552; 22845; 20931; 00670; 36415; 72040; 76000; 80053; 82962; 83036; 83735; 85025; 86850; 86900; 86901; 87081; 93005; A4648; C1713; J2405

== ENCOUNTER 2025-01-18 20:51 | Inpatient (IN) | payer OTHER, MEDICAID, SELFPAY ==
[2025-01-18] VITALS (7 sets, daily range): BP systolic 148–168; BP diastolic 102–136; PULSE 110–132; RESP 14–24; TEMP 35.9–36.6; O2SAT 97–100; BMI 29.7
--- NOTE | 2025-01-18 21:02 | EDS_ITS ---
HPI History of Present Illness Chief Complaint: Edema Narrative Narrative: 45-year-old male past medical history of cervical myelopathy with radiculopathy had surgery performed by Dr. Villagran today. He had cervical fusion through an anterior approach on the left. He presents to the emergency department stating that he is having difficulty breathing and he has swelling around his neck. He is supposed to be had a cervical collar, but states he is unable to breathe. He is nauseated as well. Has not vomited. states that they took him back for surgery around noon, and they left the hospital around 545, approximately 3 hours ago. [facility] Medical History Obesity (BMI 30-39.9) Wears glasses History of steroid therapy Smoker Migraines Asthma Internal hemorrhage Hypertension Home Medications Medication Instructions Recorded Last Taken Type albuterol sulfate 90 mcg/actuation 2 puff inhalation Q 4-6H PRN dyspnea 01/05/25 Unknown History aerosol inhaler gabapentin 300 mg capsule 300 mg PO BID #60 caps 01/05 Unknown Rx gabapentin 100 mg capsule 100 mg PO TID 01/11/25 Unkno wn History cephalexin 500 mg capsule 500 mg PO BID #6 caps Unknown Rx dexamethasone 4 mg tablet 4 mg PO BID #5 tabs 01/18/25 Unknown Rx hydrocodone-acetaminophen 5-325mg 1 tab PO Q6H PRN anabell n 7 days #28 01/18/25 Unknown Rx 5mg-325mg tabs meloxicam 15 mg tablet 15 mg PO DAILY #30 tabs 01/04 08/28 Unknown Rx methocarbamol 500 mg tablet 750 mg (1.5 x 500 mg) PO T ID PRN 01/18/25 Unknown Rx pain/spasms #30 tabs sennosides 8.6 mg capsule (senna) 8.6 mg PO BID PRN co nstipation #14 01/18/25 Unknown Rx caps Allergy/AdvReac Type Severity Reaction Status Date / Time No Known Allergies Allergy Verified 01/18/25 09:56 Family History Other Liver cancer Ovarian cancer Surgical History History of tonsillectomy History of appendectomy Social History household members: spouse
--- NOTE | 2025-01-18 21:02 | EX.ED.DYSGE1 ---
HPI History of Present Illness Chief Complaint: Edema Narrative Narrative: 45-year-old male past medical history of cervical myelopathy with radiculopathy had surgery performed by Dr. Villagran today. He had cervical fusion through an anterior approach on the left. He presents to the emergency department stating that he is having difficulty breathing and he has swelling around his neck. He is supposed to be had a cervical collar, but states he is unable to breathe. He is nauseated as well. Has not vomited. states that they took him back for surgery around noon, and they left the hospital around 545, approximately 3 hours ago. [facility] Medical History Obesity (BMI 30-39.9) Wears glasses History of steroid therapy Smoker Migraines Asthma Internal hemorrhage Hypertension Home Medications Medication Instructions Recorded Last Taken Type albuterol sulfate 90 mcg/actuation 2 puff inhalation Q4-6H PRN dyspnea 01/05/25 Unknown History aerosol inhaler gabapentin 300 mg capsule 300 mg PO BID #60 caps 01/05/25 Unknown Rx gabapentin 100 mg capsule 100 mg PO TID 01/11/25 Unknown History cephalexin 500 mg capsule 500 mg PO BID #6 caps 01/18/25 Unknown Rx dexamethasone 4 mg tablet 4 mg PO BID #5 tabs 01/18/25 Unknown Rx hydrocodone-acetaminophen 5-325mg 1 tab PO Q6H PRN pain 7 days #28 01/18/25 Unknown Rx 5mg-325mg tabs meloxicam 15 mg tablet 15 mg PO DAILY #30 tabs 01/18/25 Unknown Rx methocarbamol 500 mg tablet 750 mg (1.5 x 500 mg) PO TID PRN 01/18/25 Unknown Rx pain/spasms #30 tabs sennosides 8.6 mg capsule (senna) 8.6 mg PO BID PRN constipation #14 01/18/25 Unknown Rx caps Allergy/AdvReac Type Severity Reaction Status Date / Time No Known Allergies Allergy Verified 01/18/25 09:56 Family History Other Liver cancer Ovarian cancer Surgical History History of tonsillectomy History of appendectomy Social History household members: spouse Smoking Status: Current every day smoker tobacco type: cigarettes substance use type: does not use ROS ROS ED ROS Narrative Review of systems positive for left-sided neck swelling and difficulty breathing. Positive nausea. No vomiting. No fevers or chills. Right arm weakness improved from baseline. EXAM Physical Exam Narrative Exam Narrative: Afebrile. Vital signs noted. Nontoxic-appearing. Cardiovascular examination reveals regular rate and rhythm. Lungs are clear to auscultation bilaterally. Abdomen is soft and nontender. Patient does have a clean dry dressing intact on left anterior neck. Mild soft tissue swelling. No stridor. Const Vital Signs: 01/18/25 20:52 01/18/25 21:06 01/18/25 22:00 Temperature 96.6 F L Temperature Source Oral Pulse Rate 110 H 110 H 119 H Respiratory Rate 18 22 H 15 Blood Pressure 166/123 H 166/123 H 168/119 H Blood Pressure Mean 137 137 135 Pulse Ox 100 100 97 Oxygen Delivery Method Room Air Room Air 01/18/25 23:00 Temperature Temperature Source Pulse Rate 118 H Respiratory Rate 14 Blood Pressure 163/121 H Blood Pressure Mean 135 Pulse Ox 99 Oxygen Delivery Method Room Air MDM MDM MDM Narrative Medical decision making narrative: Differential diagnosis includes but not limited to airway compromise from hematoma versus seroma versus subjective dyspnea. Pulse ox is 97 to 98% on room air. He will be placed on oxygen for comfort. He was administered Zofran for nausea, CBC and BMP will be checked as well as CT soft tissue neck. Reviewed his laboratory work, and he has a leukocytosis of 18.3 which may be postsurgical, hemoglobin is hemoconcentrated at 18.7, in review of his prior labs he has had elevated hemoglobin in the past as well. Platelet count 218. Electrolyte panel shows carbon dioxide of 19.5 with anion gap slightly elevated as a result at 16. BUN of 16 and creatinine 1.0, glucose 167. Sodium normal at 138 potassium 4.9. Upon repeat examination, pulse ox remains 98% on room air. He is not stridorous. He did state to the RN that he began having chest discomfort/pain. EKG was obtained and interpreted by myself independently as sinus tachycardia at 109 bpm without ectopy or acute ST changes. No STEMI. No reciprocal changes. I ordered a chest x-ray in 1 view as well. On my individual interpretation of the chest x-ray, there is no acute process, no pneumonia, no pneumothorax. I reviewed the radiology report which my independent interpretation. I received a call from the radiologist regarding the CT of the neck with IV contrast. There is a larger than usual hematoma in the surgical bed with slight pressing on the airway to the upper right, but no narrowing of the airway. Patient's pulse ox remains normal and he is not stridorous. He was administered morphine for pain in his neck. There was also concern of an area of blushing at the area/level of C7 which is concerning for active bleeding. I discussed patient with Dr. Vale Villagran, his spine surgeon. He noted that the patient had elevated diastolic after surgery. This may be the cause of the hematoma formation. He would like the patient given hydralazine. He was administered 5 mg. He will be taken to the OR from the emergency department. I do not feel that he is requiring immediate intubation currently. Disposition is admit/to the OR in stable condition. History & Record Review Discussion w/independent historian: Patient and Family Lab Data Attestation: I reviewed the patient's lab results. Labs: Laboratory Results - last 24 hr 01/18/25 21:00 WBC 18.3 H RBC 5.61 Hgb 18.7 H* Hct 52.4 MCV 93.4 MCH 33.3 H MCHC 35.7 RDW Std Deviation 41.1 RDW Coeff of Sravani 12.0 Plt Count 218 MPV 10.8 Immature Gran % (Auto) 0.800 Neut % (Auto) 92.4 H Lymph % (Auto) 4.7 L [place] % (Auto) 1.9 Eos % (Auto) 0.0 Baso % (Auto) 0.2 Absolute Neuts (auto) 16.9 H Absolute Lymphs (auto) 0.87 Nucleated RBC % 0 Sodium 138 Potassium 4.9 Chloride 102 Carbon Dioxide 19.5 L Anion Gap 16 H BUN 16 Creatinine 1.00 Estim Creat Clear Calc 103.18 Est GFR (MDRD) Non-Af 94 BUN/Creatinine Ratio 16.2 Glucose 167 H Calcium 9.5 Radiography Diagnostic Testing: Clinical Impression(s) from Imaging Studies Soft Tissue Neck CT 01/18/25 21:21 IMPRESSION: Postop changes of C5-C7 ACDF. Large heterogeneous fluid/hematoma collection within the surgical bed tracking along the prevertebral soft tissues and into the upper mediastinum with scattered soft tissue air, much more than typically expected postoperatively. There is a small blush of contrast extravasation concerning for active bleeding within the left paramidline prevertebral soft tissues at the C7 level. Mass-effect with on the adjacent airway with anterior right displacement but without substantial narrowing. Recommend surgical consultation. Findings communicated via telephone with provider Junior Johnson 01/18/2025 at 9:45 p.m. SAP DIRECTOR, with read back verification. Reading Location: [facility] Chest X-Ray 01/18/25 22:26 IMPRESSION: No acute cardiopulmonary disease. Reading Location: [facility] Management Discussion w/another healthcare provider: Flight Security Specialist (Dr. Villagran) and Radiologist Discharge Plan Dx/Rx/DC Orders Clinical Impression: Postoperative hematoma, Status post cervical spinal fusion, Hypertension Disposition Disposition: Acute Care Hospital [facility]
[2025-01-18 21:09] LABS: Hematocrit 52.4 % (40-54); Immature Granulocytes Count 0.150 X10^3/uL (0.0-0.0); Mean Corp Hgb Conc 35.7 g/dL (32-36); Mean Corpuscular Volume 93.4 fL (80-94); Mean Platelet Vol. 10.8 fl (6.2-12.0); NRBC Flagged by Analyzer 0 % (0-5); Platelet Count 218 K/mm3 (150-450); RBC Distribution Width CV 12.0 % (11.6-14.6); RBC Distribution Width SD 41.1 fl (35.1-43.9); Red Blood Count 5.61 M/mm3 (4.6-6.2); White Blood Count 18.3 K/mm3 (4.4-11.0)
--- NOTE | 2025-01-18 21:21 | CT_ITS ---
PROCEDURE: CT SOFT TISSUE NECK WITH CONTRAST 01/18/2025 REASON FOR EXAM: SWELLING, RECENT SURGERY TECHNIQUE: Procedure Code: CTNEW Modality: CT Procedure: SOFT TISSUE NECK WITH CONTRAST CONTRAST: Isovue-300 VOLUME: 75 mL One or more dose reduction techniques were used (e.g., Automated exposure control, adjustment of the mA and/or kV according to patient size, use of iterative reconstruction technique). RADIATION DOSE SUMMARY: CTDlvol: 16.27 mGy DLP: 565.23 mGycm COMPARISON: No relevant prior exams. FINDINGS: Postoperative changes of recent anterior cervical discectomy and fusion from C5- C7. No evidence of hardware complication. Mild multilevel cervical spondylotic changes. Straightening of the normal cervical lordosis. No fracture or subluxation. No aggressive osseous erosion or destruction. Large heterogeneous postoperative fluid/hematoma collection in the operative bed along the prevertebral soft tissues and tracking into the anterior left neck subcutaneous tissues,, and extending into the superior mediastinum, with scattered soft tissue emphysema. There appears to be a small blush of contrast within the prevertebral hematoma collection, anterior to the C7 level (S2 image 26) concerning for active hemorrhage. Mild anterior displacement and rightward deviation of the adjacent airway, but no substantial airway narrowing. No findings suspicious for superimposed infection. No cervical lymphadenopathy. CT/Soft Tissue Neck WITH Contrast IMPRESSION: Postop changes of C5-C7 ACDF. Large heterogeneous fluid/hematoma collection wit hin the surgical bed tracking along the prevertebral soft tissues and into the upper mediastinum with scattered soft ti ssue air, much more than typically expected postoperatively. There is a small blush of contrast extravasation concerning for active bleeding within the left paramidline prevertebral soft tissues at the C7 level. Mass-effect with on the adjacent airway with anterior right displacement but without substantial narrowing. Recommend surgical consultation. Findings communicated via telephone with provider Junior Johnson 01/18/2025 at 9: 45 p.m. PAVILION CUTTER, with read back verification. Reading Location: [id number]
[2025-01-18 21:27] LABS: Anion Gap 16 (5-15); BUN 16 mg/dL (4-19); BUN/Creat Ratio 16.2 RATIO (10-20); Calcium,Total 9.5 mg/dL (7.6-11.0); Carbon Dioxide 19.5 mmol/L (21.0-32.0); Chloride 102 mmol/L (98-108); Estimated Creatinine Clearance 103.18 ml/min (50-250); Glucose 167 mg/dL (70-99); Potassium 4.9 mmol/L (3.3-5.1)
--- OUTSIDE RECORDS SUMMARY | 2025-01-18 21:31 | XMS RPT_ITS | CCD ---
Author Organization [facility] Care Team Providers Care Ore Washer Name Role Phone Dr. Ena Holloway Primary Care Provider Dr. Divya Nobles Emergency Provider [phone] Mandeep Siegelit Provider Dr. Mandeep Siegel Other Provider 1([facility])[phone] Lcuas Barfield Other Provider 1([facility]) Dr. Kyle Ly Other Provider 1([facility])[phone] Carl WARP DOFFER, WARP DOFFER-C Zabrina Attending Provider Dr. Lucas Barfield Attending Provider [phone] Dr. Kyle Ly Attending Provider [phone] Dr. Kyle Ly Attending Provider [phone] Dr. Ngoc Hansen Referring Provider Unavailable Dr. Mandeep Siegel Attending Provider [phone] Dr. Ngoc Hansen Other Provider Unavailable Dr. Ngoc Hansen Attending Provider Unavailable Dr. Ena Holloway Primary Care Provider Dr. Yoshi Catalan Attending Provider [phone] Mandeep Siegel Referring Provider [phone] Dr. Divya Nobles Emergency Provider [phone] Mandeep Siegelit Provider Dr. Mandeep Siegel Other Provider Dr. Lucas Barfield Other Provider Dr. Kyle Ly Attending Provider Dr. Kyle Ly Other Provider Friend, Dr. Zavala Attending Provider Dr. Ngoc Hansen Referring Provider Unavailable Dr. Mandeep Siegel Attending Provider Dr. Ngoc Hansen Other Provider Unavailable Dr. Ngoc Hansen Attending Provider Unavailable Cola Ngoc PHIPPS Primary Care Provider Unavailabl e CATIA, NGOC Primary Care Unavailable NGOC OLIVEROS Attending Unavailable Care Physician, No Primary Primary Care Provider Unavailable Dr. Kenny Wells DO Emergency Provider PHYSICIAN, NONE Primary Care Physician Unavailab le PHYSICIAN, NONE Primary Care Unavailable JONI GUERRA, PRO Attending Unavailable Russell PHIPPS, Dr. Cox Attending Provider Tannhofareed WARP DOFFER-C, Makeda Primary Care Provider Dr. Josef Gonzalez MD Emergency Provider Dr. Josef Gonzalez MD Attending Provider Tannhofareed WARP DOFFER-C, Makeda Attending Provider Kalinhofareed WARP DOFFER-C, Makeda Referring Provider Dr. Herberth Donohue DO Emergency Provider Care Physician, No Primary Primary Care Physicia n Unavailable Russell PHIPPS, Dr. Cox Attending Physician Dr. Kenny Wells DO Emergency Department Physici an [place] WARP DOFFER-C, Makeda Primary Care Physician Dr. Josef Gonzalez MD Attending Physician Dr. Josef Gonzalez MD Emergency Department Phys ician Shruthi WARP DOFFER-C, Makeda Attending Physician Dr. Herberth Donohue DO Attending Physician Dr. Herberth Donohue DO Emergency Department Physician Keisha GUERRA, Dr. Adithya Dempsey Attending Physician Dr. Herberth Donohue DO Referring Provider [phone] Maricel Grullon Attending Physician Hossein GUERRA, Dr. Belle Attending Physician [phone] Alex GUERRA, Junior Emergency Department Physician Herberth Donohue Attending Unavailable Tannhof, Makeda Primary Care Unavailable Rhett Tyler Attending Unavailable Care Physician, No Primary Primary Care Unava ilable Tannhof, Makeda Primary Care Unavailable Adan Villagran Attending Unavailable Adan Villagran Referring Unavailable Tannhof, Makeda Attending Unavailable Tannhof, Makeda Referring Unavailable Tannhof, Makeda Primary Care Unavailable Tannhof, Makeda Attending Unavailable Tannhof, Makeda Referring Unavailable Tannhof, Makeda Primary Care Unavailable Tannhof, Makeda Primary Care Unavailable Tannhof, Makeda Attending Unavailable Tannhof, Makeda Referring Unavailable Maricel Mcintyre Attending Unavailable Tannhof, Makeda Referring Unavailable Tannhof, Makeda Primary Care Unavailable Yoshi Catalan Attending Unavailable Tannhof, Makeda Primary Care Unavailable Tannhof, Makeda Primary Care Unavailable Tannhof, Makeda Referring Unavailable Adan Villagran Attending Unavailable Alex, Junior Attending Unavailable Tannhof, Makeda Primary Care Unavailable Kenny Wells Attending Unavailable Care Physician, No Primary Primary Care Unava ilable Josef Gonzalez Attending Unavailable Tannhof, Makeda Primary Care Unavailable Medications Current Medications Medication Drug Class(es) [...] 05, 2018 12:00am February 08, 2018 1:08am [id number] 200 actuat albuterol 0.09 mg/actuat metered dose inhaler (5 sources) beta2-Adrenergic Agonist Start: 01-05-2025 Albut adams Sulfate 90 mcg/actuation HFA aerosol inhaler Active 2 NMA INHALATION EVERY 4-6 HOURS as needed for dyspnea January 05, 2025 12:00am Complies with drug therapy Start: 10-17-2024 take 1 puff(s) by in halation every four hours as needed for wheezing [...] oral solution (1 source) alpha-Adrenergic Agonist, Uncompetitive C-rxlyzg-S-aspartate Receptor Antagonist, Sigma-1 Agonist Start: 08-28-2023 take 5 mL by mouth every six hours as needed avfnjjxpcdsrtti-jzclefzgypradyu-mnmqlsul thorphan 30-2-10 MG/5ML Syrup Take 5 mL [...] for 7 days. 16 g 08/28/2023 Active gabapentin 100 mg oral capsule (8 sources) Anti-epileptic Agent Start: 01-11-2025 take 1 capsule by mouth three times daily Gabapentin 100 mg capsule Active 100 mg PO THREE TIMES A DAY January 11, 2025 12:00am Complies with drug therapy Start: 11-25-2024 End: 01-05-2025 take 1 capsule by mouth twice daily Gabapentin 300 mg capsule Active 300 mg PO TWICE A DAY 60 0 January 05, 2025 8:39am Complies with drug therapy ibuprofen 600 mg oral tablet (1 source) [...] Quantity: 9.0 Unit: tab(s) Repeat number: 1 methylPREDNISolone 4 mg oral tablet (1 source) Corticosteroid Start: 01-11-2025 Kistler (Nk) (2 sources) Start: 10-15-2024 Kistler (Nk) Active October 15, 2024 12:00am Start: 09-20-2021 Kistler (Nk) A ctive September 20, 2021 12:00am pregabalin 150 mg oral capsule (3 sources) Start: 01-05-2025 take 1 capsule by mouth twice daily Pregabalin 150 mg capsule Active 150 mg PO TWICE A DAY January 05, 2025 12:00am Complies with drug therapy Completed/Discontinued Medications Medication Drug Class(es) Dates Sig (Normalized) Sig (Original) dextromethorphan hydrobromide 2 mg/ml / guaiFENesin 20 mg/ml oral suspension (1 source) Uncompetitive Y-yjrdzo-Z-aspartat e Receptor Antagonist, Sigma-1 Agonist Start: 08-28-2023 End: 08-28-2023 take 1 dose by mouth once 10 mL, Oral, ONCE, 1 dose, On Thu08/28/23 at 1815 diazePAM 5 mg oral tablet (19 sources) Benzodiazepine Start: 02-05-2018 End: 02-08-2018 take [...] mg / lisinopril 20 mg oral tablet (17 sources) Thiazide Diuretic, Angiotensin Converting Enzyme Inhibitor Start: 12-02-2021 End: 05-02-2024 Lisinopril-[place] chlorothiazide 20-25 mg tablet Discontinued 1 {tbl} PO DAILY December 02, 2021 12:00am May 02, 2024 2:30am HTN Start: 12-02-2021 take 1 tablet by devante th once daily Lisinopril-Hydrochlorothiazide Active 1 TABLET PO DAILY December 02, 2021 12:00am hydrocortisone 25 mg/ml topical cream (13 sources) Corticosteroid Start: 01-07-2022 End: 10-15-2024 Hydrocortisone (Anusol-Hc) 2.5 % cream with perineal applicator Discontinued 1 NMA RC AT BEDTIME January 07, 2022 12:00am October 15, 2024 12:14pm Start: 01-07-2022 Hydrocortisone (Anusol-Hc) 2.5 % cream with perineal applicator Active 1 APPLIC RC AT BEDTIME January 07, 2022 12:00am hyoscyamine sulfate 0.125 mg disintegrating oral tablet (7 sources) Start: 10-31-2024 End: 01-05-2025 take 0.125-0.25 mg by mouth every eight hours as needed Hyoscyamine Sulfate 0.125 mg tablet,disintegrating Discontinued 0.125 - 0.25 mg PO Q8H as needed for abdominal discomfort October 31, 2024 12:00am January 05, 2025 8:08am levoFLOXacin 750 mg oral tablet (10 sources) Quinolone Antimicrobial Start: 04-16-2023 End: 05-02-2024 take 1 tablet by mouth once daily Levofloxacin 750 mg tablet Discontinued 750 mg PO DAILY April 16, 2023 1:00am May 02, 2024 2:30am naproxen 500 mg oral tablet (9 sources) Nonsteroidal Anti-inflammatory Drug Start: 07-26-2023 End: 10-15-2024 take 1 tablet by mouth twice daily as needed Naproxen 500 mg tablet Discontinued 500 mg PO TWICE DAILY NEEDED July 26, 2023 12:00am October 15, 2024 12:25pm ondansetron 8 mg disintegrating oral tablet (15 sources) Serotonin-3 Receptor Antagonist Start: 10-31-2024 End: 01-05-2025 take 1 tablet by mouth every eight hours as needed for nausea and vomiting Ondansetron 8 mg tablet,disintegrating Discontinued 8 mg PO Q8H as needed for nausea and vomiting 15 October 31, 2024 12:00am January 05, 2025 8:08am Start: 10-15-2024 End: 10-31-2024 take 1 tablet by mouth every six hours as needed for nausea and vomiting Ondansetron Hcl 4 mg tablet Discontinued 4 mg PO EVERY 6 HOURS as needed for nausea and vomiting 12 October 15, 2024 12:00am October 31, 2024 2:59am pantoprazole 40 mg delayed release oral tablet (13 sources) Proton Pump Inhibitor Start: 01-07-2022 End: 05-02-2024 take 1 tablet by mouth once daily Pantoprazole (Protonix) 40 mg tablet,delayed release (DR/EC) Discontinued 40 mg PO DAILY 90 January 07, 2022 12:00am May 02, 2024 2:30am predniSONE 20 mg oral tablet (11 sources) Start: 04-16-2023 End: 05-02-2024 take 2 [...] Active Problems Problem Classification Problem Date Documented Date Episodic/Chronic Abdominal pain (18 sources) Lower abdominal pain; Translations: [Lower abdominal pain, unspecified] 03-11-2022 Episodic Alcohol-related disorders (11 sources) Alcoholism; Translations: [Alcohol dependence, uncomplicated] 03-11-2022 Chronic Asthma (10 sources) Exacerbation of asthma; Translations: [Unspecified asthma with (acute) exacerbation] 04-16-2023 Chronic Cardiac dysrhythmias (11 sources) Sinus tachycardia; Translations: [Tachycardia, unspecified] 03-11-2022 Episodic Chronic obstructive pulmonary disease and bronchiectasis (3 sources) Bronchitis; Translations: [Bronchitis, not specified as acute or chronic] Onset: 08-28-2023 08-28-2023 Episodic Conditions associated with dizziness or vertigo (3 sources) Dizziness and giddiness; Translations: [Dizziness and giddiness] Onset: 10-17-2024 Episodic Disorders of teeth and jaw (19 sources) Toothache; Translations: [Other specified disorders of teeth and supporting structures] 02-11-2014 Episodic E Codes: Natural/environment (5 sources) Bitten or stung by nonvenomous insect and other nonvenomous arthropods, initial encounter; Translations: [Insect bite] 11-25-2024 Episodic Essential hypertension (16 sources) Hypertensive disorder; Translations: [Essential (primary) hypertension] Chronic Fluid and electrolyte disorders (20 sources) Dehydration; Translations: [Dehydration] Episodic Headache; including migraine (20 sources) Headache; Translations: [Headache] Onset: 10-17-2024 02-24-2018 Episodic Headache; including migraine (1 source) Headache; including migraine; Translations: [Headache, unspecified] Onset: 10-17-2024 Hemorrhoids (11 sources) Bleeding internal hemorrhoids; Translations: [Other hemorrhoids] 03-11-2022 Episodic Influenza (10 sources) Influenza due to Influenza A virus; Translations: [Influenza due to other identified influenza virus with other respiratory manifestations] 04-10-2023 Episodic Nausea and vomiting (16 sources) Nausea and vomiting; Translations: [Nausea with vomiting, unspecified] Onset: 11-07-2024 10-15-2024 Episodic Neoplasms of unspecified nature or uncertain behavior (11 sources) Polycythemia vera (clinical); Translations: [Polycythemia vera] 03-11-2022 Chronic Nonspecific chest pain (20 sources) Atypical chest pain; Translations: [Other chest pain] Onset: 10-17-2024 12-10-2021 Episodic Open wounds of extremities (12 sources) Laceration of left thumb; Translations: [Laceration without foreign body of left thumb without damage to nail, initial encounter] 03-08-2022 Episodic Other bone disease and musculoskeletal deformities (19 sources) Costal chondritis; Translations: [Chondrocostal junction syndrome [Tietze]] 07-01-2018 Episodic Other connective tissue disease (19 sources) Spasm of cervical paraspinous muscle; Translations: [Other muscle spasm] 12-30-2018 Episodic Other connective tissue disease (1 source) Other symptoms and signs involving the musculoskeletal system; Translations: [Weakness of right upper extremity] 01-11-2025 Episodic Other liver diseases (1 source) Hepatomegaly, not elsewhere classified; Translations: [Hepatomegaly, not elsewhere classified] Onset: 11-25-2024 Episodic Other nervous system disorders (5 sources) Peripheral nerve disease ; Translations: [Polyneuropathy, unspecified] 11-25-2024 Chronic Other nervous system disorders (2 sources) Cervical myelopathy; Translations: [Disease of spinal cord, unspecified] 01-05-2025 Chronic Other nervous system disorders (1 source) Anesthesia of skin; Translations: [Anesthesia of skin] Onset: 11-30-2024 Episodic Other non-traumatic joint disorders (9 sources) Pain in left shoulder; Translations: [Acute pain of left shoulder] 07-26-2023 Episodic Other upper respiratory infections (20 sources) Acute upper respiratory infection; Translations: [Acute upper respiratory infection, unspecified] Onset: 08-28-2023 07-01-2018 Episodic Pancreatic disorders (not diabetes) (7 sources) Pancreatitis; Translations: [Acute pancreatitis without necrosis or infection, unspecified] Episodic Pneumonia (except that caused by tuberculosis or sexually transmitted disease) (10 sources) Pneumonia; Translations: [Pneumonia, unspecified organism] 04-16-2023 Episodic Residual codes; unclassified (8 sources) Tobacco use and exposure - finding; Translations: [Tobacco use] 05-10-2024 Episodic Spondylosis; intervertebral disc disorders; other back problems (20 sources) Cervical radiculopathy; Translations: [Radiculopathy, cervical region] Onset: 12-31-2024 11-23-2021 Episodic Sprains and strains (20 sources) Sprain of ankle; Translations: [Sprain of unspecified ligament of right ankle, initial encounter] 10-04-2019 Episodic Viral infection (19 sources) Viral disease; Translations: [Viral infection, unspecified] 02-24-2018 Episodic Past or Other Problems Problem Classification Problem Date Documented Da te Episodic/Chronic Gastrointestinal hemorrhage (20 sources) Gastrointestinal hemorrhage; Translations: [Gastrointestinal hemorrhage, unspecified] Onset: Episodic Results Test Name Value Interpretation Reference Range Facility MRSA/SAID NASAL SCREENon MRSA+SAID SCRN Reason for Exam: Surgery MRSA MRSA Negative S. AUREUS S. aureus Negative Normal [facility] [place] Comment on above: Performed By: #### L 100.0100, BTSPAT, L501.5200, L501.9985, M100.651 #### [facility] [address] [place], [address] 12 Lead EKGon 01-16-2025 12 Lead EKG [facility] [address] [place] [address] 12 Lead EKG 01/16/25 0836 MR#: [id number] Acct: [id number] Name: ANDREW MCLEAN Jr. Rep #: [id number] : 1980 45 From: Yoshi Catalan MD Attending Dr: Dr. Adan Villagran MD [place] [facility] [place]: Adan Villagran MD Date: 01/16/25 [place] [facility] [place]: M C Admitted: Test Reason : PREOP Blood Pressure : */* mmHG Vent. Rate : 68 BPM Atrial Rate : 68 BPM P-R Int : 182 ms QRS Dur : 82 ms QT Int : 386 ms P-R-T Axes : 24 14 26 degrees QTcB Int : 410 ms Normal sinus rhythm Normal ECG Confirmed by YOSHI CATALAN MD ([id number]), science editor BRIAN CASTELLANOS ([id number]) on 01/17/2025 7:36:35 AM Referred By: Adan Villagran Confirmed By: YOSHI CATALAN MD 01/17/25 0736 Date Yoshi Catalan MD CC: LUCIANO Hawkins; Dr. Adan Villagran MD Signed Normal [facility] CBC W/Diff, Automatedon 01-04 Absolute Lymph 3.21 X10 3/uL Normal 0.83-4.51 [facility] Comment on above: Performed By: #### L 100.0100, BTSPAT, L501.5200, L501.9985, M100.651 #### [facility] [address] [place], [address] Absolute Neut 4.5 X10 3/uL Normal 2.0-7.7 [facility] Comment on above: Performed By: #### L 100.0100, BTSPAT, L501.5200, L501.9985, M100.651 #### [facility] [address] [place], [address] Basophils/100 WBC (Bld) 1.2 % High 0-1 [facility] Comment on above: Performed By: #### L 100.0100, BTSPAT, L501.5200, L501.9985, M100.651 #### [facility] [address] [place], [address] Eosinophils/100 WBC (Bld) 1.8 % Normal 0-5 [facility] Comment on above: Performed By: #### L 100.0100, BTSPAT, L501.5200, L501.9985, M100.651 #### [facility] [address] [place], [address] Erythrocyte distribution width (RBC) [Ratio] 12.0 % Normal 11.6-14.6 [facility] Comment on above: Performed By: #### L 100.0100, BTSPAT, L501.5200, L501.9985, M100.651 #### [facility] [address] [place], [address] Hematocrit (Bld) [Volume fraction] 49.9 % Normal 40-54 [facility] Comment on above: Performed By: #### L 100.0100, BTSPAT, L501.5200, L501.9985, M100.651 #### [facility] [address] [place], [address] Hemoglobin (Bld) [Mass/Vol] 17.7 g/dL High 13.0-16.5 [facility] Comment on above: Performed By: #### L 100.0100, BTSPAT, L501.5200, L501.9985, M100.651 #### [facility] [address] [place], [address] IG% 0.900 Normal 0.0-0.9 [facility] Comment on above: Result Comment: IG% - Immature Granulocytes (promyelocytes, myelocytes and metamyelocytes) > 1% indicates that a LEFT SHIFT is Present. Performed By: #### L 100.0100, BTSPAT, L501.5200, L501.9985, M100.651 #### [facility] [address] [place], [address] Lymphocytes/100 WBC (Bld) 38.0 % Normal 19-41 [facility] Comment on above: Performed By: #### L 100.0100, BTSPAT, L501.5200, L501.9985, M100.651 #### [facility] [address] [place], [address] MCH (RBC) [Entitic mass] 34.2 pg High 27.0-32.0 [facility] Comment on above: Performed By: #### L 100.0100, BTSPAT, L501.5200, L501.9985, M100.651 #### [facility] [address] [place], [address] MCHC (RBC) [Mass/Vol] 35.5 g/dL Normal 32-36 [facility] Comment on above: Performed By: #### L 100.0100, BTSPAT, L501.5200, L501.9985, M100.651 #### [facility] [address] [place], [address] MCV (RBC) [Entitic vol] 96.3 fL High 80-94 [facility] Comment on above: Performed By: #### L 100.0100, BTSPAT, L501.5200, L501.9985, M100.651 #### [facility] [address] [place], [address] Monocytes/100 WBC (Bld) 5.2 % Normal 0-10 [facility] Comment on above: Performed By: #### L 100.0100, BTSPAT, L501.5200, L501.9985, M100.651 #### [facility] [address] [place], [address] Neutrophils/100 WBC (Bld) 52.9 % Normal 47-70 [facility] Comment on above: Performed By: #### L 100.0100, BTSPAT, L501.5200, L501.9985, M100.651 #### [facility] [address] [place], [address] Nucleated RBC (Bld) [#/Vol] 0 10*3/uL Normal 0-5 [facility] Comment on above: Performed By: #### L 100.0100, BTSPAT, L501.5200, L501.9985, M100.651 #### [facility] [address] [place], [address] Platelet mean volume (Bld) [Entitic vol] 11.9 fL Normal 6.2-12.0 [facility] Comment on above: Performed By: #### L 100.0100, BTSPAT, L501.5200, L501.9985, M100.651 #### [facility] [address] [place], [address] Platelets (Bld) [#/Vol] 203 10*3/uL Normal 150-450 [facility] Comment on above: Performed By: #### L 100.0100, BTSPAT, L501.5200, L501.9985, M100.651 #### [facility] [address] [place], [address] RBC (Bld) [#/Vol] 5.18 10*6/uL Normal 4.6-6.2 [facility] Comment on above: Performed By: #### L 100.0100, BTSPAT, L501.5200, L501.9985, M100.651 #### [facility] [address] [place], [address] RDW SD 42.9 fl Normal 35.1-43.9 [facility] Comment on above: Performed By: #### L 100.0100, BTSPAT, L501.5200, L501.9985, M100.651 #### [facility] [address] [place], [address] WBC (Bld) [#/Vol] 8.5 10*3/uL Normal 4.4-11.0 [facility] Comment on above: Performed By: #### L 100.0100, BTSPAT, L501.5200, L501.9985, M100.651 #### [facility] [address] [place], [address] Hemoglobin A1con 01-16-2025 HbA1c (Bld) [Mass fraction] 5.2 % Normal <=5.6 [facility] Comment on above: Result Comment: Norm al < 5.7 % Prediabetic 5.7 - 6.4 % Diabetic >or= 6.5 % Please note range changes. Performed By: #### L 100.0100, BTSPAT, L501.5200, L501.9985, M100.651 #### [facility] [address] [place], [address] Magnesiumon 01-16-2025 Magnesium [Mass/Vol] 2.4 mg/dL High 1.5-2.2 [facility] Comment on above: Performed By: #### L 100.0100, BTSPAT, L501.5200, L501.9985, M100.651 #### [facility] [address] [place], [place], [address] Orthopedic Visit Reporton Orthopedic Visit Report [facility] [address] [place] [address] OFFICE VISIT Date of Service: 01/16/25 MR#: [id number] Acct: [id number] Name: ANDREW MCLEAN Jr. Rep #: [id number] : 1980 Provider: Dr. Adan Villagran MD Age/Sex: 45/M [place] [facility] [place] Status: Signed Intake Vital Signs 01/11/25 17:14 01/16/25 14:42 Height 5 ft 9 in 5 ft 9 in Weight: 205 lb BMI 30.2 BP 146/105 H Respiration 18 Pulse 93 Temp 97.9 F Temp Source Temporal Pulse Oximetry (%) 99 Intake Visit Reasons: cervical spine Chief Complaint: cervical spine Accompanied by: Is patient in pain?: Yes (right side neck ) Pain scale (1-10): 6 Allergies No Known Allergies Allergy (Verified 01/16/25 14:42) Medications ???Medication ???Instructions ???Recorded ???Confirmed ???Type albuterol sulfate 90 mcg/actuation 2 puff inhalation Q4-6H PRN dysp vargas 01/05/25 01/16/25 History aerosol inhaler gabapentin 300 mg capsule 300 mg PO BID #60 caps 01/05/25 Rx gabapentin 100 mg capsule 100 mg PO TID 01/11/25 01/16/25 Hi story methylprednisolone 4 mg tablets in See Rx Instructions PO .COMPLEX 01/11/25 01/16/25 Rx a dose pack (Medrol (Karsten)) #21 tabs PFSH Medical History (Updated 01/16/25 @ 15:00 by Yojana Mary RN) Obesity (BMI 30-39.9) Wears glasses History of steroid therapy Smoker Migraines Asthma Internal hemorrhage Hypertension Surgical History History of tonsillectomy History of appendectomy Family History Other Liver cancer Ovarian cancer Social History household members: spouse Smoking Status: Current every day smoker tobacco type: cigarettes substance use type: does not use HPI cervical spine Details: This documentation accurately reflects the service provided and the decisions made by me, Dr. Adan Villagran MD 01/16/25 7049. Part of today???s visit was documented by [ ], acting as scribe. ANDREW MCLEAN is a 45 year old M here today for neck pain x "months" right side neck, pain is described as sharp, traveling down to right arm. pain is worse with ROM. patient states no injury to the neck. treating pain with neck brace, PRN tylenol. The patient is a 45-year-old male presenting for preoperative evaluation and management of cervical radiculopathy. The cervical radiculopathy symptoms began earlier this year, with the patient experiencing pain primarily on the right side of the neck radiating down the arm. The patient reports that wearing a cervical collar has provided some relief for the neck pain, although it did not alleviate associated weakness. The patient has experienced falls but denies any head or neck injuries from these incidents. The patient has a history of asthma, managed with albuterol as needed. He denies any history of diabetes, heart problems, or lung problems other than asthma. The patient smokes less than half a pack of cigarettes per day, which may impact surgical outcomes and healing. - Neurological: Reports neck pain radiating to the right arm, denies weakness improvement with collar use. - Respiratory: Reports asthma, denies other lung problems. - Cardiovascular: Denies heart problems. - Endocrine: Denies diabetes. Attestation: Documentation on this patient encounter was supported using ambient scribe technology/ voice AI technology. The patient consented to recording for the purpose of documenting the encounter. Provider reviewed content of the generated note prior to signature. 01/05/25: ANDREW MCLEAN is a 44 year old M here today for cervical spine pain. He reports a several month history of cervical spine pain that is progressively been getting worse. The right side of his neck is the worst. The pain does extend down the right arm and he reports numbness and tingling into his finger tips. He reports a change in his balance recently and he has fallen a few times. He reports dexterity issues and has been dropping items from his hands. Dropping things such as bottles, toys, phones. Pain down the back of the right arm to the thumb which is numb. He has not done PT. He does have his first appointment scheduled with Dr. Rose on the . He takes gabapentin 100mg 3x a day, no benefit. Been taking 800-1000mg of ibuprofen without benefit. Says that his last fall was yesterday and he fell out of the bathtub. No diabetes, hx of asthma, managed by PCP no oxygen, no blood thinners. Coding Level of Care Code Off vis,est,level 4 Diagnoses Cervical myelopathy with cervical radiculopathy G95.9; M54.12 Obesity (BMI 30-39.9) E66.9 Time Spent (min) 35 Assessment and Plan Assessment a (more content not included)... Normal [facility] Type AND Screen - PAT ONLYon 01-16-2025 Ab SCREEN GEL Negative Normal [facility] Comment on above: Order Comment: Surge ry Date: 01/18/25 Reason for Laboratory Test PREOP [id number] N/A N N S CERVICAL FUSION Performed By: #### L 100.0100, BTSPAT, L501.5200, L501.9985, M100.651 #### [facility] [address] [place], [address] Emergency Department Summary on 01-11-2025 Emergency Department Summary [facility] Medical Records Department [address] [place] [address] Emergency Department Summary 01/11/25 MR#: [id number] Acct: [id number] Name: ANDREW MCLEAN . Rep #: [id number] : 1980 45 From: Junior Johnson MD PCP: LUCIANO Peñaloza Status:PRE ER Location: ED HPI History of Present Illness Chief Complaint: Other, Pain/Inj Narrative Narrative: 45-year-old male past medical history of known cervical myelopathy and C6 cervical radiculopathy affecting his right upper extremity presents with frequent falls and increasing pain/burning pain of his right arm. He states that whenever he turns his head a certain way, he will get increased pain, and he causes him to fall. He and his fianc???e state that he was recently seen by his pain management doctor Dr. Rose and he is currently taking gabapentin 300 mg 3 times a day. He also saw the PA at Dr. Villagran's office, and they are urgently trying to schedule surgery for his cervical radiculopathy. He denies any fevers or chills, no recent trauma. He states he was told that if his symptoms are worsening that he needs to come to the emergency department. [facility] Medical History Migraines Asthma Internal hemorrhage Hypertension Home Medications ???Medication ???Instructions ???Recorded ???Last Taken ???Type albuterol sulfate 90 mcg/actuation 2 puff inhalation Q4-6H PRN dysp vargas 01/05/25 Unknown History aerosol inhaler gabapentin 300 mg capsule 300 mg PO BID #60 caps 01/05/25 Un known Rx pregabalin 150 mg capsule 150 mg PO BID 01/05/25 Unknown His tory gabapentin 100 mg capsule 100 mg PO TID 01/11/25 Unknown His tory methylprednisolone 4 mg tablets in See Rx Instructions PO .COMPLEX 01/11/25 Unknown Rx a dose pack (Medrol (Karsten)) #21 tabs Allergy/AdvReac Type Severity Reaction Status Date / Time No Known Allergies Allergy Verified 01/11/25 17:14 Family History Other Liver cancer Ovarian cancer Surgical History History of appendectomy Social History household members: spouse Smoking Status: Current every day smoker tobacco type: cigarettes substance use type: does not use ROS ROS ED ROS Narrative Review of systems positive for right arm weakness, right sided cervical radicular pain, burning. No fevers or chills. Positive frequent falls. No injury. No alleviating factors. EXAM Physical Exam Narrative Exam Narrative: Afebrile. Vital signs noted. Nontoxic-appearing. Cardiovascular examination reveals a regular rate and rhythm. Lungs are clear to auscultation bilaterally. Abdomen soft and nontender. 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 He has full range of motion of his right upper extremity. No vertebral point tenderness or bony step-off of neck. Const Vital Signs: 01/11/25 17:14 01/11/25 17:23 01/11/25 18:14 Temperature 97.9 F Temperature Source Temporal Pulse Rate 93 78 Respiratory Rate 18 18 Respiratory Effort Normal Non-Labored Respiratory Pattern Normal Blood Pressure 146/105 H Blood Pressure Mean 118 Pulse Ox 99 97 Oxygen Delivery Method Room Air Room Air MDM MDM MDM Narrative Medical decision making narrative: I feel this is an exacerbation of his cervical radiculopathy that is known, and chronic. I do not feel differential is applicable otherwise. I reviewed his outpatient visit, and they are urgently trying to schedule surgery for him as he was last seen on 01/05/2025, approximately 6 days ago. I discussed the patient with Dr. Villagran, who suggested either having the patient medically admitted for placement and retirement facility/rehab if he is having that frequent falls. Additionally, he suggested outpatient treatment with a Medrol Dosepak and a soft collar. In discussion with the patient and his fianc???e, he does not want to be observed for placement, but they did inquire about outpatient rehab. They were referred to orthopedics or their primary care provider regarding this. He is agreeable to Medrol Dosepak and soft collar and follow-up with orthopedic spine. I also suggested that he follow-up with his pain management physician and inquire about stronger pain medications. At this point in time, I do not feel he needs laboratory work or repeat imaging as he has had a recent MRI. Return instructions to the emergency department were reviewed. Patient agreeable to the plan. Disposition is discharged home in stable condition. History Record Review Additional record(s) reviewed:: Prior outpatient record Management (more content not included)... Normal [facility] Cerv Spine 2 or 3 Viewson Cerv Spine 2 or 3 Views [facility] [address] [place] [address] Cerv Spine 2 or 3 Views MR#: [id number] Acct: [id number] Name: ANDREW MCLEAN Jr. Rep #: [id number] : 1980 M 44 From: Onel Wylie MD PCP: LUCIANO Peñaloza Status: DEP AMB Study: Cerv Spine 2 or 3 Views Date of Exam: 01/05/25 Exam# [id number] Ordering Dr: Maricel Mcintyre PROCEDURE: CERV SPINE 2 OR 3 VIEWS 01/05/2025 REASON FOR EXAM: ON GOING NECK PAIN TECHNIQUE: Procedure Code: RADSPCL Modality: DX Procedure: CERV SPINE 2 OR 3 VIEWS COMPARISON: 12/2024. FINDINGS: No evidence of acute fracture or dislocation. Moderate degenerative changes of the visualized spine. No instability on flexion or extension views. RAD/Cerv Spine 2 or 3 Views IMPRESSION: Spondylosis. No visualized instability. 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 Normal [facility] Orthopedic Visit Reporton Orthopedic Visit Report [facility] [address] [place] [address] [place] [address] OFFICE VISIT Date of Service: 01/05/25 MR#: [id number] Acct: [id number] Name: ANDREW MCLEAN JrPing Rep #: [id number] : 1980 Provider: ZAHRAA Celis Age/Sex: 44/M Location[place] [facility] Status: Signed Intake Vital Signs 11/25/24 14:25 01/05/25 08:05 Height 5 ft 9 in 5 ft 9 in Weight: 202 lb BMI 29.8 Intake Visit Reasons: CERVICAL SPINE Chief Complaint: cervical spine Accompanied by: Significant Other Is patient in pain?: Yes (cervical spine) Pain scale (1-10): 7 Allergies No Known Allergies Allergy (Verified 01/05/25 08:08) [facility] Medical History Migraines Asthma Internal hemorrhage Hypertension Surgical History History of appendectomy Family History Other Liver cancer Ovarian cancer Social History household members: spouse Smoking Status: Current every day smoker tobacco type: cigarettes substance use type: does not use HPI CERVICAL SPINE Details: This documentation accurately reflects the service provided and the decisions made by me, ZAHRAA Celis 01/05/25 0801. Part of today???s visit was documented by Yojana Mary RN, acting as scribe. ANDREW MCLEAN is a 44 year old M here today for cervical spine pain. He reports a several month history of cervical spine pain that is progressively been getting worse. The right side of his neck is the worst. The pain does extend down the right arm and he reports numbness and tingling into his finger tips. He reports a change in his balance recently and he has fallen a few times. He reports dexterity issues and has been dropping items from his hands. Dropping things such as bottles, toys, phones. Pain down the back of the right arm to the thumb which is numb. He has not done PT. He does have his first appointment scheduled with Dr. Rose on the . He takes gabapentin 100mg 3x a day, no benefit. Been taking 800-1000mg of ibuprofen without benefit. Says that his last fall was yesterday and he fell out of the bathtub. No diabetes, hx of asthma, managed by PCP no oxygen, no blood thinners. 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 Normal sensation across all dermatomes. No hyperreflexia. Cierra's negative. There midline and right sided paraspinal tenderness. Romberg's positive. Tandem gait shows severe ataxia. Coding Level of Care Code Off vis,new,level 4 Diagnoses Cervical myelopathy with cervical radiculopathy G95.9; M54.12 Assessment and Plan Assessment and Plan (1) Cervical myelopathy with cervical radiculopathy: Status: Acute Orders: Orders Cerv Spine 2 or 3 Views Today M54.2 - Cervicalgia Medications: Changed From gabapentin 300 mg PO QHS 30 caps 0RF To gabapentin 300 mg PO BID 60 caps 0RF Discontinued ondansetron Discontinued Reason: Pt no longer taking 8 mg PO Q8H PRN 15 tabs 0RF nausea and vomiting hyoscyamine sulfate Discontinued Reason: Pt no longer taking 0.125 - 0.25 mg (1 - 2 x 0.125 mg) PO Q8H PRN 20 tabs 0RF abdominal discomfort Plan Obtained and reviewed flexion/extension xrays today in the clinic. Independent interpretation of the xrays was performed. Reviewed prior AP and LAT xrays. Xrays show straightening of the normal cervical lordosis. Multilevel disc height loss. No significant instability on dynamic views. No fracture. MRI from 12/23/24 shows C5-C6: Disc bulge, bilateral facet arthrosis, and uncovertebral spurring contribute to moderate spinal canal stenosis. Moderate bilateral neural foraminal narrowing. C6-C7: Disc bulge, bilateral facet arthrosis, and uncovertebral spurring. Mild spinal canal stenosis. Moderate bilateral neural foraminal narrowing. At C5-6 there is some brightening of the cord which indicates some cord edema. Explained the imaging findings in detail. Discussed options today which includes a C5-7 ACDF. The patient is myelopathic which has been worsening over the last several months. On exam he has severe ataxia with tandem gait and says that he has had to used a cane at times to help. He has had several falls from the ataxia. He is also weak in his right arm which shows a neurological deficit. Expained that myelopathy is a progressively worsening issue. Explained the surgery in detai (more content not included)... Normal [facility] Magnetic resonance imaging r eportOrdered By: Rose Mesa on 12-24-2024 Study report [facility] [address] [place] [address] Spine Cervical (Routine) MR#: [id number] Acct: [id number] Name: PABLOANDREW Jr. Rep #: [id number] : 1980 M 44 From: Neri Mesa MD PCP: Makeda Hawkins, WARP DOFFER-C Status: REG C Study:Spine Cervical (Routine) Date of Exam: 12/23/24 Exam# [id number] Ordering Dr: Makeda Hawkins PROCEDURE: SPINE CERVICAL (ROUTINE) 12/23/2024 REASON FOR EXAM: RADICULOPATHY, CERVICAL REGION TECHNIQUE: Procedure Code: MRISPC Modality: MR Procedure: SPINE CERVICAL (ROUTINE) Multiplanar and multisequence images were obtained without IV contrast administration. COMPARISON: None available FINDINGS: The visualized posterior fossa contents appear within normal limits. Straightening of the cervical spine. The atlantooccipital and atlantoaxial joints appear normally aligned. The cervical vertebral bodies are normal in height. The cervical vertebral bodies are normal in alignment. There is a well-circumscribed T1 hypointense/T2 hyperintense lesion at the C6 vertebral body. This lesion is hyperintense on STIR. The bone marrow signal is otherwise within normal limits. Multilevel disc desiccation. There is no evidence of cervical spinal cord signal abnormality. C2-C3: No significant spinal canal stenosis or neural foraminal narrowing. C3-C4: Central disc protrusion flattens the ventral thecal sac. No significant neural foraminal narrowing. C4-C5: Disc bulge, bilateral facet arthrosis, and uncovertebral spurring. Flattening of the ventral thecal sac. Moderate right neural foraminal narrowing. Intact left neural foramen. C5-C6: Disc bulge, bilateral facet arthrosis, and uncovertebral spurring contribute to moderate spinal canal stenosis. Moderate bilateral neural foraminal narrowing. C6-C7: Disc bulge, bilateral facet arthrosis, and uncovertebral spurring. Mild spinal canal stenosis. Moderate bilateral neural foraminal narrowing. C7-T1: No significant spinal canal stenosis or neural foraminal narrowing. Partially visualized polypoid mucosal thickening in the right maxillary sinus. MRI/Spine Cervical (Routine) IMPRESSION: Cervical spondylosis most prominent at C5-C6 where there is moderate spinal canal and neural foraminal stenosis. Well-circumscribed T1 hypointense/T2 hyperintense lesion at the C6 vertebral body may reflect an atypical osseous hemangioma. Reading Location: [id number] CC: LUCIANO Hawkins ~ Lawnmower Mechanic: Signed [facility] Spine Cervical (Routine)on 0 12-23-2024 Spine Cervical (Routine) [facility] Imaging Services [address] [place] [address] Spine Cervical (Routine) MR#: [id number] Acct: [id number] Name: ANDREW MCLEAN Jr. Rep #: [id number] : 1980 M 44 From: Rose Mesa MD PCP: LUCIANO Peñaloza Status: REG CLI Study: Spine Cervical (Routine) Date of Exam: Exam# [id number] Ordering Dr: Makeda Hawkins PROCEDURE: SPINE CERVICAL (ROUTINE) 12/23/2024 REASON FOR EXAM: RADICULOPATHY, CERVICAL REGION TECHNIQUE: Procedure Code: MRISPC Modality: MR Procedure: SPINE CERVICAL (ROUTINE) Multiplanar and multisequence images were obtained without IV contrast administration. COMPARISON: None available FINDINGS: The visualized posterior fossa contents appear within normal limits. Straightening of the cervical spine. The atlantooccipital and atlantoaxial joints appear normally aligned. The cervical vertebral bodies are normal in height. The cervical vertebral bodies are normal in alignment. There is a well-circumscribed T1 hypointense/T2 hyperintense lesion at the C6 vertebral body. This lesion is hyperintense on STIR. The bone marrow signal is otherwise within normal limits. Multilevel disc desiccation. There is no evidence of cervical spinal cord signal abnormality. C2-C3: No significant spinal canal stenosis or neural foraminal narrowing. C3-C4: Central disc protrusion flattens the ventral thecal sac. No significant neural foraminal narrowing. C4-C5: Disc bulge, bilateral facet arthrosis, and uncovertebral spurring. Flattening of the ventral thecal sac. Moderate right neural foraminal narrowing. Intact left neural foramen. C5-C6: Disc bulge, bilateral facet arthrosis, and uncovertebral spurring contribute to moderate spinal canal stenosis. Moderate bilateral neural foraminal narrowing. C6-C7: Disc bulge, bilateral facet arthrosis, and uncovertebral spurring. Mild spinal canal stenosis. Moderate bilateral neural foraminal narrowing. C7-T1: No significant spinal canal stenosis or neural foraminal narrowing. Partially visualized polypoid mucosal thickening in the right maxillary sinus. MRI/Spine Cervical (Routine) IMPRESSION: Cervical spondylosis most prominent at C5-C6 where there is moderate spinal canal and neural foraminal stenosis. Well-circumscribed T1 hypointense/T2 hyperintense lesion at the C6 vertebral body may reflect an atypical osseous hemangioma. Reading Location: [facility] CC: LUCIANO Hawkins Lawnmower Mechanic: Signed Normal [facility] Cerv Spine 2 or 3 Viewson Cerv Spine 2 or 3 Views [facility] [address] [place] [address] Cerv Spine 2 or 3 Views MR#: [id number] Acct: [id number] Name: ANDREW MCLEAN . Rep #: [id number] : 1980 M 44 From: Lucinda Guerra MD PCP: LUCIANO Peñaloza Status: REG ER Study: Cerv Spine 2 or 3 Views Date of Exam: 11/25/24 Exam# [id number] Ordering Dr: Herberth Donohue DO PROCEDURE: CERV SPINE 2 OR 3 VIEWS 11/25/2024 REASON FOR EXAM: RIGHT C6 PARESTHESIA TECHNIQUE: CERV SPINE 2 OR 3 VIEWS COMPARISON: None. FINDINGS: BONES: No fracture or focal osseous lesion. Anatomic spinal alignment. Straightening of the normal cervical lordosis. DISC/DEGENERATIVE CHANGES: Mild disc space narrowing at C5-C6. Small vertebral endplate osteophytes at several levels. SOFT TISSUES: No acute abnormality seen. RAD/Cerv Spine 2 or 3 Views IMPRESSION: 1. No acute osseous abnormality. 2. Straightening of the cervical spine, may reflect muscle spasm. 3. Mild degenerative changes. Reading Location: [id number] CC: LUCIANO Hawkins; Dr. Herberth Donohue DO Lawnmower Mechanic: Signed Normal [facility] Emergency Department Summary on 11-25-2024 Emergency Department Summary [facility] Medical Records Department [address] [place] [address] Emergency Department Summary 11/25/24 MR#: [id number] Acct: [id number] Name: ANDREW MCLEAN . Rep #: [id number] : 1980 44 From: Herberth Sharpe PCP: LUCIANO Peñaloza Status:DEP ER Location: ED HPI History of Present Illness Chief Complaint: Numb/Ting Informant: patient and spouse/S.O. Narrative Narrative: 2-week history of numbness down the right arm to his thumb and at the scapula. No pain no weakness. Is btyra-mhvy-pnhosswl. Denies neck pain. No history of similar. Last 2 days redness discomfort distal right lower leg. Pursuing other other mosquitoes around the home. He has been outside. States does itch. Pain today. No speech changes no hemiparesis. Only medical history of asthma per patient. Prior similar symptoms: No PFSH PFSH Medical History Migraines Asthma Internal hemorrhage Hypertension Home Medications ???Medication ???Instructions ???Recorded ???Last Taken ???Type hyoscyamine sulfate 0.125 mg 0.125 - 0.25 mg (1 - 2 x 0.125 mg) 10/31/24 Unknown Rx disintegrating tablet PO Q8H PRN abdominal discomfort #20 tabs ondansetron 8 mg disintegrating 8 mg PO Q8H PRN nausea and 5 Unknown Rx tablet vomiting #15 tabs gabapentin 300 mg capsule 300 mg PO QHS #30 caps 11/25/24 Un known Rx Allergy/AdvReac Type Severity Reaction Status Date / Time No Known Allergies Allergy Verified 11/25/24 14:25 Family History Other Liver cancer Ovarian cancer Surgical History History of appendectomy Social History household members: spouse Smoking Status: Current every day smoker tobacco type: cigarettes substance use type: does not use ROS ROS ED Constitutional Constitutional ED: Denies fever(s) Cardiovascular Cardiovascular: Denies chest pain Respiratory/Chest Respiratory/Chest: Denies cough Gastrointestinal Gastrointestinal: Denies diarrhea or vomiting Musculoskeletal Musculoskeletal: Reports other Details: Right leg pain and redness Integumentary Denies rash or wounds Neurologic Neurologic: Reports paresthesias; Denies weakness EXAM Physical Exam Const Vital Signs: 11/25/24 14:25 11/25/24 14:27 11/25/24 15:27 Temperature 97.7 F L 97.7 F L 98 F Temperature Source Oral Oral Oral Pulse Rate 94 94 73 Respiratory Rate 18 18 18 Respiratory Effort Blood Pressure 166/111 H 166/111 H 156/87 H Blood Pressure Mean 129 129 110 Pulse Ox 100 100 98 Oxygen Delivery Method Room Air Room Air Room Air 11/25/24 15:27 11/25/24 16:24 Temperature 98 F Temperature Source Pulse Rate 73 Respiratory Rate 18 Respiratory Effort Normal Non-Labored Blood Pressure 156/87 H Blood Pressure Mean 110 Pulse Ox 98 Oxygen Delivery Method Positive well nourished and well developed General Appearance ED: well developed and NAD HEENT Reports moist mucous membranes normocephalic and atraumatic Eyes General Eye ED: Yes normal appearance of both eyes Neck full ROM Neck Narrative: Spurling's positive to the right. Symptoms relief with flexion extension to the left. Chest Wall inspection of chest normal and palpation of chest normal Chest: Negative for tenderness Resp normal respiratory effort and normal air movement Effort and Inspection: symmetric chest movement; Negative for respiratory distress Cardio regular rate, regular rhythm and no murmurs Peripheral Pulses: pulses 2+ throughout GI normal to inspection, nondistended, normoactive bowel sounds and non-tender Palpation: Negative for guarding or rebound tenderness present Extremity Extremity Narrative: Right leg: Slight swelling distal tibia with excoriations and couple areas. There is redness medially. There was distal calf pain. Soft compartments. Pulses intact distally. General Extremety ED: Yes tenderness; Negative for edema General Extremity: Negative for edema Neuro oriented x3 and no sensory deficits noted Neuro Narrative: Strength 5 out of 5 shoulder abduction and elbow extension flexion wrist extension and flexion along with abduction and abduction of the fingers. Sensorium / Orientation: awake and alert Skin Skin Narrative: See above MDM MDM MDM Narrative Medical decision making narrative: Interventions / MDM: Differential diagnosis: C6 peripheral neuropathy on the right, insect bites Diagnosis considered but do not suspect: DVT however ultrasound negative. Evaluation with erythema likely inflammatory as is on day 2 and not infectious. Is afebrile. No drainage. Clinical diagn (more content not included)... Normal [facility] Venous Duplex US, Unilateral on 11-25-2024 Venous Duplex US, Unilateral [facility] [place] [address] [address] Venous Duplex US, Unilateral 11/25/24 1547 MR#: [id number] Acct: [id number] Name: ANDREW MCLEAN Jr. Rep #: [id number] : 1980 44 From: Adithya Valdes MD Attending Dr: Status: DEP ER Ordering Dr: Herberth Donohue DO Date: 11/25/24 Location: ED Sex: M C Admitted: Reason For Study Reason For Study: RLE Pain RIGHT GSV is normal. CFV is compressible, spontaneous, phasic, competent and demonstrates normal augmentation. FV is compressible, spontaneous, phasic, competent and demonstrates normal augmentation. POP V is compressible, spontaneous, phasic, competent and demonstrates normal augmentation. T/P Trunk is compressible. PTV is compressible. RT PerV is compressible. Procedure This is a venous duplex using B-mode, color flow and spectral Doppler. Exam performed in department. The exam was diagnostic. A preliminary report was called and/or faxed to Shi Shannon ED RN. VL/Venous Duplex US, Unilateral Interpretation Summary Deep veins of the right lower extremity are patent and compressible segmentally. There is no evidence of right lower extremity deep vein thrombosis. Valvular competence appears intact within the proximal deep venous system on the right . The right great saphenous vein appears patent and compressible segmentally. Ordering Physician: Herberth Donohue Referring Physician: Makeda Hawkins Performed By: Michael Ruiz, RVT 11/25/241655 Date Adithya Valdes MD CC: WARP DOFFER-Bakari Hawkins; Dr. Herberth Le, DO Date Dictated: 11/25/24 1547 Date Transcribed: 11/25/24 1656 Lawnmower Mechanic: Signed Normal [facility] Magnetic resonance imaging r eportOrdered By: Sandra Earl on 11-09-2024 Study report [facility] [address] [place] [address] MRI Abd WITH and W/O Contrast MR#: [id number] Acct: [id number] Name: ANDREW MCLEAN Jr. Rep #: [id number] : 1980 M 44 From: Elijah Earl MD PCP: LUICANO Peñaloza Status: REG C LI Study:MRI Abd WITH and W/O Contrast Date of E xam: 11/07/24 Exam# [id number] Ordering Dr: Makeda Hawkins PROCEDURE: MRI ABD WITH AND W/O CONTRAST 11/07/2024 REASON FOR EXAM: HEPATOMEGALY TECHNIQUE: MRI ABD WITH AND W/O CONTRAST Multiplanar and multisequence images were obtained. CONTRAST: Clariscan VOLUME: 17 mL COMPARISON: 10-31-2024 CT FINDINGS: Enlarged liver showing few left hepatic lobe masses, the largest measures 3.9 cmin diameter. They display low T1 and high T2 signal with marginal nodular enhancement and centripetal contrast fill in. otherfew small right hepatic lobe enhancing lesions are also noted. No extra or intra-hepatic biliary radicles dilatation. The portal vein and hepatic veins apple normal. Distended gall bladder showing no low signal calculi. No related collections. The pancreas and the spleen are normal in size and signal intensity. No obvious focal lesion is identified. Both kidneys are normal in size and position. No hydronephrosis or focal enhancing masses could be seen in both kidneys. Unremarkable adrenal glands, aorta and IVC. Small and large bowel loops appear largely collapsed however, is grossly unremarkable. The stomach shows no significant abnormality. No ascites or collections. No significant lymph node enlargement is seen in the abdomen. The visualized osseous structure shows no marrow infiltrative lesions. MRI/MRI Abd WITH and W/O Contrast IMPRESSION: Hepatomegaly with multiple hepatic masses as detailed, possibly hemangiomata. 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 Rep #: [id number] : 1980 M 44 From: Sandra segovia MD PCP: LUCIANO Peñaloza Status: REG CLI Study: MRI Abd WITH and W/O Contrast Date of Exam: Exam# [id number] Ordering Dr: Makeda Hawkins PROCEDURE: MRI ABD WITH AND W/O CONTRAST 11/07/2024 REASON FOR EXAM: HEPATOMEGALY TECHNIQUE: MRI ABD WITH AND W/O CONTRAST Multiplanar and multisequence images were obtained. CONTRAST: Clariscan VOLUME: 17 mL COMPARISON: 10-31-2024 CT FINDINGS: Enlarged liver showing few left hepatic lobe masses, the largest measures 3.9 cm in diameter. They display low T1 and high T2 signal with marginal nodular enhancement and centripetal contrast fill in. other few small right hepatic lobe enhancing lesions are also noted. No extra or intra-hepatic biliary radicles dilatation. The portal vein and hepatic veins apple normal. Distended gall bladder showing no low signal calculi. No related collections. The pancreas and the spleen are normal in size and signal intensity. No obvious focal lesion is identified. Both kidneys are normal in size and position. No hydronephrosis or focal enhancing masses could be seen in both kidneys. Unremarkable adrenal glands, aorta and IVC. Small and large bowel loops appear largely collapsed however, is grossly unremarkable. The stomach shows no significant abnormality. No ascites or collections. No significant lymph node enlargement is seen in the abdomen. The visualized osseous structure shows no marrow infiltrative lesions. MRI/MRI Abd WITH and W/O Contrast IMPRESSION: Hepatomegaly with multiple hepatic masses as detailed, possibly hemangiomata. 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, [address] SMEAR COMMENT SCANNED Normal [facility] Comment on above: Performed By: #### L 100.0100, BTSPAT, L501.5200, L501.9985, M100.651 #### [facility] [address] [place], [address] Comprehensive Metabolic Prof ilon 10-31-2024 Albumin [Mass/Vol] 4.5 g/dL Normal 3.5-5.0 [facility] Comment on above: Performed By: #### L 100.0100, BTSPAT, L501.5200, L501.9985, M100.651 #### [facility] [address] [place], [address] Albumin/Globulin [Mass ratio] 1.7 {ratio} Normal 0.9-2.4 [facility] Comment on above: Performed By: #### L 100.0100, BTSPAT, L501.5200, L501.9985, M100.651 #### [facility] [address] [place], [address] ALK PHOS 61 U/L Normal 40-129 [facility] Comment on above: Performed By: #### L 100.0100, BTSPAT, L501.5200, L501.9985, M100.651 #### [facility] [address] [place], [address] ALT [Catalytic activity/Vol] 27 U/L Normal <=46 [facility] Comment on above: Performed By: #### L 100.0100, BTSPAT, L501.5200, L501.9985, M100.651 #### [facility] [address] [place], [address] AST [Catalytic activity/Vol] 20 U/L Normal <=37 [facility] Comment on above: Performed By: #### L 100.0100, BTSPAT, L501.5200, L501.9985, M100.651 #### [facility] [address] [place], [address] Bilirubin [Mass/Vol] 0.53 mg/dL Normal 0.00-1.30 [facility] Comment on above: Performed By: #### L 100.0100, BTSPAT, L501.5200, L501.9985, M100.651 #### [facility] [address] [place], [address] BUN/CRE 9.1 RATIO Low 10-20 [facility] Comment on above: Performed By: #### L 100.0100, BTSPAT, L501.5200, L501.9985, M100.651 #### [facility] [address] [place], [address] Calcium [Mass/Vol] 9.4 mg/dL Normal 7.6-11.0 [facility] Comment on above: Performed By: #### L 100.0100, BTSPAT, L501.5200, L501.9985, M100.651 #### [facility] [address] [place], [address] Chloride [Moles/Vol] 104 mmol/L Normal 98-108 [facility] Comment on above: Performed By: #### L 100.0100, BTSPAT, L501.5200, L501.9985, M100.651 #### [facility] [address] [place], [address] CO2 [Moles/Vol] 20.7 mmol/L Low 21.0-32.0 [facility] Comment on above: Performed By: #### L 100.0100, BTSPAT, L501.5200, L501.9985, M100.651 #### [facility] [address] [place], [address] Creatinine [Mass/Vol] 1.01 mg/dL Normal 0.70-1.20 [facility] Comment on above: Performed By: #### L 100.0100, BTSPAT, L501.5200, L501.9985, M100.651 #### [facility] [address] [place], [address] ECRCL 92.36 ml/min Normal 50-250 [facility] Comment on above: Performed By: #### L 100.0100, BTSPAT, L501.5200, L501.9985, M100.651 #### [facility] [address] [place], [address] GAP 14 Normal 5-15 [facility] Comment on above: Performed By: #### L 100.0100, BTSPAT, L501.5200, L501.9985, M100.651 #### [facility] [address] [place], [address] GFR/1.73 sq M.predicted among non-blacks MDRD (S/P/Bld) [Vol rate/Area] 93 mL/min/{1.73_m2} Normal >60 [facility] Comment on above: Result Comment: mL/m in/1.73m2 CKD-EPI Creatinine Equation (2020) Performed By: #### L 100.0100, BTSPAT, L501.5200, L501.9985, M100.651 #### [facility] [address] [place], [address] Globulin (S) [Mass/Vol] 2.7 g/dL Normal 2.2-4.2 [facility] Comment on above: Performed By: #### L 100.0100, BTSPAT, L501.5200, L501.9985, M100.651 #### [facility] [address] [place], [address] Glucose [Mass/Vol] 91 mg/dL Normal 70-99 [facility] Comment on above: Performed By: #### L 100.0100, BTSPAT, L501.5200, L501.9985, M100.651 #### [facility] [address] [place], [address] Potassium [Moles/Vol] 3.4 mmol/L Normal 3.3-5.1 [facility] Comment on above: Performed By: #### L 100.0100, BTSPAT, L501.5200, L501.9985, M100.651 #### [facility] [address] [place], [address] Sodium [Moles/Vol] 138 mmol/L Normal 133-145 [facility] Comment on above: Performed By: #### L 100.0100, BTSPAT, L501.5200, L501.9985, M100.651 #### [facility] [address] [place], [address] T PROT 7.2 g/dL Normal 5.9-8.4 [facility] Comment on above: Performed By: #### L 100.0100, BTSPAT, L501.5200, L501.9985, M100.651 #### [facility] [address] [place], [address] Urea nitrogen [Mass/Vol] 9 mg/dL Normal 4-19 [facility] Comment on above: Performed By: #### L 100.0100, BTSPAT, L501.5200, L501.9985, M100.651 #### [facility] [address] [place], [place], [address] Ketones Test strip Ql (U)Ord ered By: Josef Gonzalez on 10-31-2024 Ketones Ql (U) Negative Negative [facility] Lipaseon 10-31-2024 Lipase [Catalytic activity/Vol] 22 U/L Normal 13-75 [facility] Comment on above: Result Comment: Plejen mason note: LIPASE revised reference range effective 22. New Lipase methodology. Expected to produce lower values than the previous assay method. NEW Reference Range: 13 - 75 U/L Performed By: #### L 100.0100, BTSPAT, L501.5200, L501.9985, M100.651 #### [facility] [address] [place], [place], [address] Microscopic analysis of urin e for red blood cells (RBC)Ordered By: Josef Gonzalez on 10-31-2024 Microscopic analysis of urine for red blood cells (RBC) 0 SEEN /hpf 0-5 [facility] Mucus LM Ql (Urine sed)Order ed By: Josef Gonzalez on 10-31-2024 Mucus Ql (Urine sed) 0 SEEN /hpf [facility] Nitrite Test strip Ql (U)Ord ered By: Josef Gonzalez on 10-31-2024 Nitrite Ql (U) Negative Negative [facility] Protein Test strip Ql (U)Ord ered By: Josef Gonzalez on 10-31-2024 Protein Ql (U) 15 mg/dl High Negative [facility] Squamous epithelial cells de tection in urine sediment by light microscopyOrdered By: Josef Gonzalez on 10-31-2024 Epithelial cells.squamous LM Ql (Urine sed) 0 SEEN /hpf 0-5 [facility] Urinalysis, Completeon 10-31 WBC 0-5 SEEN Normal 0-5 [facility] Comment on above: Order Comment: CLEAN CATCH Performed By: #### L 400.0001 #### [facility] [address] [place], [address] BILIRUBIN URINE Negative Normal Negative [facility] Comment on above: Order Comment: CLEAN CATCH Performed By: #### L 400.0001 #### [facility] [address] [place], [address] Clarity (U) Clear Normal Clear [facility] Comment on above: Order Comment: CLEAN CATCH Performed By: #### L 400.0001 #### [facility] [address] [place], [address] Color (U) Yellow Normal Yellow [facility] Comment on above: Order Comment: CLEAN CATCH Performed By: #### L 400.0001 #### [facility] [address] [place], [address] GLUCOSE, UR Normal Normal Normal [facility] Comment on above: Order Comment: CLEAN CATCH Performed By: #### L 400.0001 #### [facility] [address] [place], [address] KETONE UR Negative Normal Negative [facility] Comment on above: Order Comment: CLEAN CATCH Performed By: #### L 400.0001 #### [facility] [address] [place], [address] LEUK ESTERASE Negative Normal Negative [facility] Comment on above: Order Comment: CLEAN CATCH Performed By: #### L 400.0001 #### [facility] [address] [place], [address] Nitrite Ql (U) Negative Normal Negative [facility] Comment on above: Order Comment: CLEAN CATCH Performed By: #### L 400.0001 #### [facility] [address] [place], [address] OCCULT BLOOD-UR Negative Normal Negative [facility] Comment on above: Order Comment: CLEAN CATCH Performed By: #### L 400.0001 #### [facility] [address] [place], [address] pH UR 6.5 Normal 5.0 - 8.0 [facility] Comment on above: Order Comment: CLEAN CATCH Performed By: #### L 400.0001 #### [facility] [address] [place], [address] PROT DIPSTX 15 mg/dl Abnormal Negative [facility] Comment on above: Order Comment: CLEAN CATCH Performed By: #### L 400.0001 #### [facility] [address] [place], [address] SP.GR. DIPSTX 1.010 Normal 1.002-1.030 [facility] Comment on above: Order Comment: CLEAN CATCH Performed By: #### L 400.0001 #### [facility] [address] [place], [address] UROBILI Normal Normal Normal [facility] Comment on above: Order Comment: CLEAN CATCH Performed By: #### L 400.0001 #### [facility] [address] [place], [address] BACTERIA 0 SEEN Normal None Seen [facility] Comment on above: Order Comment: CLEAN CATCH Performed By: #### L 400.0001 #### [facility] [address] [place], [address] EPI,SQUAMOUS 0 SEEN Normal 0-5 [facility] Comment on above: Order Comment: CLEAN CATCH Performed By: #### L 400.0001 #### [facility] [address] [place], [address] Mucus Ql (Urine sed) 0 SEEN Normal [facility] Comment on above: Order Comment: CLEAN CATCH Performed By: #### L 400.0001 #### [facility] [address] [place], [address] RBC 0 SEEN Normal 0-5 [facility] Comment on above: Order Comment: CLEAN CATCH Performed By: #### L 400.0001 #### [facility] [address] [place], [place], [address] Urine clarityOrdered By: Marcelo Gonzalez on 10-31-2024 Clarity (U) Clear Clear [facility] Urine color determinationOrd ered By: Josef Gonzalez on 10-31-2024 Color (U) Yellow Yellow [facility] Urine glucose detectionOrder ed By: Josef Gonzalez on 10-31-2024 Glucose Ql (U) Normal mg/dl Normal [facility] Urine leukocyte esterase det ection by dipstickOrdered By: Josef Gonzalez on 10-31-2024 Leukocyte esterase Test strip Ql (U) Negative Negative [facility] Urine pHOrdered By: Josef Gonzalez on 10-31-2024 pH (U) 6.5 [pH] 5.0 - 8.0 [facility] Urine sediment bacteria coun t by microscopy (number/high power field)Ordered By: Josef Gonzalez on 10-31-2024 Bacteria LM.HPF (Urine sed) [#/Area] 0 /[HPF] None Seen [facility] Urine specific gravity measu rementOrdered By: Josef Gonzalez on 10-31-2024 Specific gravity (U) [Rel density] 1.010 1.002-1.030 [facility] Urine urobilinogen measureme ntOrdered By: Josef Gonzalez on 10-31-2024 Urobilinogen Ql (U) Normal mg/dl Normal [facility] White blood cell countOrdere d By: Josef Gonzalez on 10-31-2024 White blood cell count 0-5 SEEN /hpf 0-5 [facility] Abdomen/Pelvis W IV Cont ONL Yon 10-30-2024 Abdomen/Pelvis W IV Cont ONLY [facility] [address] [place] [address] Abdomen/Pelvis W IV Cont ONLY MR#: [id number] Acct: [id number] Name: PABLOANDREW GUILLE Huston Rep #: [id number] : 1980 M 44 From: Arturo Lucero MD PCP: LUCIANO Peñaloza Status: REG ER Study: Abdomen/Pelvis W IV Cont ONLY Date of Exam: Exam# [id number] Ordering Dr: Josef Gonzalez MD PROCEDURE: ABDOMEN/PELVIS W IV CONT ONLY 10/31/2024 REASON FOR EXAM: RUQ/EPIGAST PAIN, N/V/D TECHNIQUE: ABDOMEN/PELVIS W IV CONT ONLY Coronal and Sagittal reconstruction series were provided. CONTRAST: Isovue 370 VOLUME: 99 mL One or more dose reduction techniques were used (e.g., Automated exposure control, adjustment of the mA and/or kV according to patient size, use of iterative reconstruction technique. RADIATION DOSE SUMMARY: CTDlvol: 40 mGy DLP: 1312 mGycm COMPARISON: 10/15/2024 FINDINGS: Under aerated lung bases. Normal heart size. Diffuse hepatic steatosis. There are 3 liver hemangiomas, largest measures 3.6 cm. No suspicious liver lesions. Normal gallbladder, pancreas, spleen, adrenal glands. 1 mm right renal calcification. No hydronephrosis or ureteral stone. Normal bladder. Normal prostate. No retroperitoneal or pelvic adenopathy. No free air. Nondistended bowel. Status post appendectomy. Diverticulosis. No acute large bowel findings. Lumbar spine degeneration. No acute abdominal wall findings. CT/Abdomen/Pelvis W IV Cont ONLY IMPRESSION: No acute findings. Reading Location: [place] [address] CC: WARP DOFFER-C Makeda Hawkins; Dr. 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 Normal [facility] Absolute lymphocyte countOrd ered By: Josef Gonzalez on 10-30-2024 Lymphocytes Auto (Unsp spec) [#/Vol] 2.49 10*3/uL 0.83-4.51 [facility] Absolute neutrophil countOrd ered By: Josef Gonzalez on 10-30-2024 Neutrophils (Bld) [#/Vol] 3.4 10*3/uL 2.0-7.7 [facility] Anion gap in Serum or Plasma Ordered By: Josef Gonzalez on 10-30-2024 Anion gap [Moles/Vol] 14 mmol/L 5-15 [facility] Automated lymphocyte count a s percentage of total leukocytesOrdered By: Josef Gonzalez on 10-30-2024 Lymphocytes/100 WBC Auto (Unsp spec) 38.1 % 19-41 [facility] BUN/creatinine ratioOrdered By: Josef Gonzalez on 10-30-2024 Urea nitrogen/Creatinine [Mass ratio] 9.1 mg/mg Low 10-20 [facility] Basophil percentageOrdered B y: Josef Gonzalez on 10-30-2024 Basophils/100 WBC (Bld) 0.9 % 0-1 [facility] Bilirubin, totalOrdered By: Josef Gonzalez on 10-30-2024 Bilirubin [Mass/Vol] 0.53 mg/dL 0.00-1.30 [facility] Blood manual differential co mment interpretation (narrative result)Ordered By: Josef Gonzalez on 10-30-2024 Manual differential comment Steve (Bld) [Interp] SCANNED [facility] Carbon dioxide, total [Moles /volume] in Central venous bloodOrdered By: Josef Gonzalez on 10-30-2024 CO2 [Moles/Vol] 20.7 mmol/L Low 21.0-32.0 [facility] Chloride assayOrdered By: Edenilson Gonzalez on 10-30-2024 Chloride [Moles/Vol] 104 mmol/L 98-108 [facility] Emergency Department Summary on 10-30-2024 Emergency Department Summary [facility] Medical Records Department [address] [place] [address] Emergency Department Summary 10/30/24 MR#: [id number] Acct: [id number] Name: ANDREW MCLEAN Rep #: [id number] : 1980 44 From: Josef Gonzalez MD PCP: LUCIANO Peñaloza Status:REG ER Location: ED HPI HPI - GI History of Present Illness Chief Complaint: Nausea/Vomiting/Diarrh ea Informant: patient Narrative Narrative: 44-year-old male presenting with vomiting and diarrhea has been half a day, had 5 bouts of diarrhea, more vomiting. No blood in either 1, no melena. He had some right upper quadrant pain as well. He states actually started having a headache earlier in the morning that got worse and then the vomiting started, sort of similar to migraines that he has had the past. Prior to vomiting took some ibuprofen the headache is not as bad but is still there. He states after he took the ibuprofen, started having upper abdominal discomfort like he needed to have a bowel movement, which is when the diarrhea started, followed by the vomiting. At 1 point the abdominal pain was more significant, and then eased up later. He had eaten some bologna earlier than this. No known sick contacts. No antibiotics recently for anything. No travel out of the area. No suspicious food intake. [facility] Medical History Migraines Asthma Internal hemorrhage Hypertension Home Medications ???Medication ???Instructions ???Recorded ???Last Taken ???Type hyoscyamine sulfate 0.125 mg 0.125 - 0.25 mg (1 - 2 x 0.125 mg) 10/31/24 Unknown Rx disintegrating tablet PO Q8H PRN abdominal discomfort #20 tabs ondansetron 8 mg disintegrating 8 mg PO Q8H PRN nausea and 5 Unknown Rx tablet vomiting #15 tabs Allergy/AdvReac Type Severity Reaction Status Date / Time No Known Allergies Allergy Verified 10/30/24 22:56 Family History Other Liver cancer Ovarian cancer Surgical History History of appendectomy Social History household members: spouse Smoking Status: Current every day smoker tobacco type: cigarettes substance use type: does not use ROS ROS ED Constitutional Constitutional ED: Denies chills or fever(s) Eyes Eyes: Denies change in vision or diplopia ENT ENT ED: Denies rhinorrhea or sore throat Cardiovascular Cardiovascular: Denies chest pain or palpitations Respiratory/Chest Respiratory/Chest: Denies cough or dyspnea Gastrointestinal Gastrointestinal: Reports abdominal pain, diarrhea, nausea and vomiting; Denies hematemesis, hematochezia or melena Genitourinary Genitourinary ED: Denies dysuria or hematuria Musculoskeletal Musculoskeletal: Denies back pain or neck pain Integumentary Denies abscess or rash Neurologic Neurologic: Reports headache(s); Denies paresthesias or weakness Psychiatric Psychiatric: Denies suicidal thoughts EXAM Physical Exam Const Vital Signs: 10/30/24 22:55 10/31/24 00:55 10/31/24 02:16 Temperature 98.1 F Temperature Source Oral Pulse Rate 73 55 L 58 L Respiratory Rate 18 18 28 H Blood Pressure 159/112 H 127/82 H Blood Pressure Mean 127 97 Pulse Ox 98 98 98 Oxygen Delivery Method Room Air Room Air Room Air Positive well nourished and well developed General Appearance ED: well developed and NAD HEENT Reports moist mucous membranes normocephalic and atraumatic Eyes PERRL and EOMs intact bilaterally Neck full ROM and supple Resp normal respiratory effort and clear to auscultation bilaterally Cardio regular rate, regular rhythm and no murmurs GI non-distended GI Narrative: Tenderness right upper quadrant and epigastrium, and some mild tenderness in the left lower quadrant. No other areas of tenderness. No guarding or rebound negative Cohn. 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 Medications helped some, (more content not included)... Normal [facility] Eosinophil percentageOrdered By: Josefmiah Gonzalez on 10-30-2024 Eosinophils/100 WBC (Bld) 0.9 % 0-5 [facility] Erythrocyte distribution wid th ratioOrdered By: Josef Gonzalez on 10-30-2024 Erythrocyte distribution width (RBC) [Ratio] 12.2 % 11.6-14.6 [facility] Erythrocyte distribution wid th standard deviationOrdered By: Chloride Lisa on 10-30-2024 Erythrocyte distribution width (RBC) [Ratio] 42.7 fl 35.1-43.9 [facility] Glomerular filtration rate ( GFR) estimation/1.73 sq m using serum, plasma, or whole bOrdered By: Josef Gonzalez on 10-30-2024 GFR/1.73 sq M.predicted among non-blacks MDRD (S/P/Bld) [Vol rate/Area] 93 mL/min/{1.73_m2} >60 [facility] Comment on above: mL/min/1.73m2 CKD-EP I Creatinine Equation (2020) Hematocrit Auto (Bld) [Volum e fraction]Ordered By: Josef Gonzalez on 10-30-2024 Hematocrit (Bld) [Volume fraction] 49.4 % 40-54 [facility] Hemoglobin measurementOrdere d By: Josef Gonzalez on 10-30-2024 Hemoglobin (Bld) [Mass/Vol] 17.6 g/dL High 13.0-16.5 [facility] Immature granulocytes/100 WB C Auto (Bld)Ordered By: Josef Gonzalez on 10-30-2024 Immature granulocytes/100 WBC (Bld) 0.500 % 0.0-0.9 [facility] Comment on above: IG% - Immature Granu locytes (promyelocytes, myelocytes and metamyelocytes) > 1% indicates that a LEFT SHIFT is Present. Laboratory - Chemistry and C hemistry - challengeOrdered By: Josef Gonzalez on 10-30-2024 AST [Catalytic activity/Vol] 20 U/L <38 [facility] Lipase measurementOrdered By : Josef Gonzalez on 10-30-2024 Lipase [Catalytic activity/Vol] 22 U/L 13-75 [facility] Comment on above: Please note:LIPASE r evised reference range effective 22. New Lipase methodology. Expected to produce lower values than the previous assay method. NEW Reference Range: 13 - 75 U/L MCV (mean corpuscular volume ) determinationOrdered By: Josef Gonzalez on 10-30-2024 MCV (RBC) [Entitic vol] 95.0 fL High 80-94 [facility] Mean corpuscular hemoglobin (MCH) determinationOrdered By: Josef Gonzalez on 10-30-2024 MCH (RBC) [Entitic mass] 33.8 pg High 27.0-32.0 [facility] Mean corpuscular hemoglobin concentration (MCHC) determinationOrdered By: Josef Gonzalez on 10-30-2024 MCHC (RBC) [Mass/Vol] 35.6 g/dL 32-36 [facility] Mean platelet volume determi nationOrdered By: Josef Gonzalez on 10-30-2024 Platelet mean volume (Bld) [Entitic vol] 12.1 fL High 6.2-12.0 [facility] Monocyte percentageOrdered B y: Josef Gonzalez on 10-30-2024 Monocytes/100 WBC (Bld) 8.0 % 0-10 [facility] Neutrophil percentageOrdered By: Josef Gonzalez on 10-30-2024 Neutrophils/100 WBC (Bld) 51.6 % 47-70 [facility] Nucleated red blood cell per centageOrdered By: Josef Gonzalez on 10-30-2024 Nucleated RBC/100 WBC (Bld) [Ratio] 0 % 0-5 [facility] Platelet countOrdered By: Edenilson Gonzalez on 10-30-2024 Platelet count TNP [facility] Comment on above: Test not performedPl ease note: For this sample, a platelet estimate is provided rather than a platelet count due to platelet clumping. Other parameters associated with this sample are not affected by platelet clumping. If a more accurate platelet count is required, a redraw of the patient will be necessary.Previous reported result: 116 [id number] by: MARIBEL on 10/31/24:0018 AMENDED REPORT 10/31/24 0018 PLT previously reported as: 116 L K/mm3 Platelet estimateOrdered By: Josef Gonzalez on 10-30-2024 Platelets LM Ql (Bld) ADEQUATE ADEQ [facility] Potassium measurement (mass/ volume)Ordered By: Josef Gonzalez on 10-30-2024 Potassium (Unsp spec) [Mass/Vol] 3.4 mmol/L 3.3-5.1 [facility] RBC Auto (Bld) [#/Vol]Ordere d By: Josef Gonzalez on 10-30-2024 RBC (Bld) [#/Vol] 5.20 10*6/uL 4.6-6.2 [facility] Serum creatinine measurement (mass/volume)Ordered By: Josef Gonzalez on 10-30-2024 Creatinine [Mass/Vol] 1.01 mg/dL 0.70-1.20 [facility] Serum globulin measurementOr dered By: Josef Gonzalez on 10-30-2024 Globulin (S) [Mass/Vol] 2.7 g/dL 2.2-4.2 [facility] Serum glucose measurement (m ass/volume)Ordered By: Josef Gonzalez on 10-30-2024 Glucose [Mass/Vol] 91 mg/dL 70-99 [facility] Serum or plasma alanine huggins otransferase (ALT) measurementOrdered By: Josef Gonzalez on 10-30-2024 ALT [Catalytic activity/Vol] 27 U/L <47 [facility] Serum or plasma albumin zo urement (mass/volume)Ordered By: Josef Gonzalez on 10-30-2024 Albumin [Mass/Vol] 4.5 g/dL 3.5-5.0 [facility] Serum or plasma albumin/glob ulin mass ratioOrdered By: Josef Gonzalez on 10-30-2024 Albumin/Globulin [Mass ratio] 1.7 {ratio} 0.9-2.4 [facility] Serum or plasma alkaline cy sphatase measurementOrdered By: Josef Gonzalez on 10-30-2024 ALP [Catalytic activity/Vol] 61 U/L 40-129 [facility] Serum or plasma calcium zo urement (mass/volume)Ordered By: Josef Gonzalez on 10-30-2024 Calcium [Mass/Vol] 9.4 mg/dL 7.6-11.0 [facility] Serum or plasma urea nitroge n measurement (mass/volume)Ordered By: Josef Gonzalez on 10-30-2024 Urea nitrogen [Mass/Vol] 9 mg/dL 4-19 [facility] Sodium levelOrdered By: Donnie Gonzalez on 10-30-2024 Sodium [Moles/Vol] 138 mmol/L 133-145 [facility] Total proteinOrdered By: Marcelo Gonzalez on 10-30-2024 Protein [Mass/Vol] 7.2 g/dL 5.9-8.4 [facility] White blood cell (WBC) count Ordered By: Josef Gonzalez on 10-30-2024 WBC (Bld) [#/Vol] 6.5 10*3/uL 4.4-11.0 [facility] .Auto Diffon 10-17-2024 Basophil, Absolute 0.0 10 3/mcL Normal 0.0-0.[address] [facility] Comment on above: Performed By: #### A KIMBERLY, ADIFF, APTT, MDW, GFR, CMP, PRO, TROPHS, PBNP, CBC #### [address] [address] Basophils/100 WBC (Bld) 0.8 % Normal 0.0-2.5 [facility] Comment on above: Performed By: #### A KIMBERLY, ADIFF, APTT, MDW, GFR, CMP, PRO, TROPHS, PBNP, CBC #### [address] [address] Eosinophil, Absolute 0.1 10 3/mcL Normal 0.0-0.7 [facility] Comment on above: Performed By: #### A KIMBERLY, ADIFF, APTT, MDW, GFR, CMP, PRO, TROPHS, PBNP, CBC #### [address] [address] Eosinophils/100 WBC (Bld) 1.8 % Normal 0.0-6.0 [facility] Comment on above: Performed By: #### A KIMBERLY, ADIFF, APTT, MDW, GFR, CMP, PRO, TROPHS, PBNP, CBC #### [address] [address] Lymphocyte, Absolute 1.8 10 3/mcL Normal 0.9-4.3 [facility] Comment on above: Performed By: #### A KIMBERLY, ADIFF, APTT, MDW, GFR, CMP, PRO, TROPHS, PBNP, CBC #### [address] [address] Lymphocytes/100 WBC (Bld) 31.0 % Normal 20.0-40.0 [facility] Comment on above: Performed By: #### A KIMBERLY, ADIFF, APTT, MDW, GFR, CMP, PRO, TROPHS, PBNP, CBC #### [address] [address] Monocyte, Absolute 0.4 10 3/mcL Normal 0.1-1.[address] [facility] Comment on above: Performed By: #### A KIMBERLY, ADIFF, APTT, MDW, GFR, CMP, PRO, TROPHS, PBNP, CBC #### [address] [address] Monocytes/100 WBC (Bld) 7.2 % Normal 2.0-13.0 [facility] Comment on above: Performed By: #### A KIMBERLY, ADIFF, APTT, MDW, GFR, CMP, PRO, TROPHS, PBNP, CBC #### [address] [address] Neutrophils/100 WBC (Bld) 59.2 % Normal 50.0-75.0 [facility] Comment on above: Performed By: #### A KIMBERLY, ADIFF, APTT, MDW, GFR, CMP, PRO, TROPHS, PBNP, CBC #### [address] [address] .GFRon 10-17-2024 Estimated Glomerular Filtration Rate 108 ml/min/1.73sqm Normal [facility] Comment on above: Result Comment: Stages [...] MDW, GFR, CMP, PRO, TROPHS, PBNP, CBC ####[address] [address] .MDWon 10-17-2024 Monocyte Distribution Width 17.69 Normal 0.00-20.00 [facility] Comment on above: Result Comment: For ED adult patients suspected of sepsis, MDW<=20.0 does not rule out sepsis or risk of sepsis Performed By: #### A KIMBERLY, ADIFF, APTT, MDW, GFR, CMP, PRO, TROPHS, PBNP, CBC #### [address] [address] .NEUABSon 10-17-2024 Neutrophil, Absolute 3.5 10 3/mcL Normal 2.3-8.1 [facility] Comment on above: Performed By: #### A KIMBERLY, ADIFF, APTT, MDW, GFR, CMP, PRO, TROPHS, PBNP, CBC #### [place] [address] APTTon 10-17-2024 aPTT Coag (Bld) [Time] 30.6 s Normal 25.0-35.0 [facility] Comment on above: Result Comment: For Heparin anticoagulation therapy, the recommended therapeutic range is: 45.4-75.9 seconds. Patients on heparin therapy may have an extreme result. Performed By: #### A KIMBERLY, ADIFF, APTT, MDW, GFR, CMP, PRO, TROPHS, PBNP, CBC #### [address] [address] CBCon 10-17-2024 Erythrocyte distribution width (RBC) [Ratio] 13.3 % Normal 11.5-15.5 [facility] Comment on above: Performed By: #### A KIMBERLY, ADIFF, APTT, MDW, GFR, CMP, PRO, TROPHS, PBNP, CBC #### [address] [address] Hematocrit (Bld) [Volume fraction] 48.6 % Normal 40.0-52.0 [facility] Comment on above: Performed By: #### A KIMBERLY, ADIFF, APTT, MDW, GFR, CMP, PRO, TROPHS, PBNP, CBC #### [address] [address] Hgb 17.1 G/dL Normal 13.0-17.5 [facility] Comment on above: Performed By: #### A KIMBERLY, ADIFF, APTT, MDW, GFR, CMP, PRO, TROPHS, PBNP, CBC #### [place] [address] MCH (RBC) [Entitic mass] 33.9 pg High 27.0-33.0 [facility] Comment on above: Performed By: #### A KIMBERLY, ADIFF, APTT, MDW, GFR, CMP, PRO, TROPHS, PBNP, CBC #### [place] [address] MCHC 35.2 G/dL Normal 32.0-36.0 [facility] Comment on above: Performed By: #### A KIMBERLY, ADIFF, APTT, MDW, GFR, CMP, PRO, TROPHS, PBNP, CBC #### [place] [address] MCV (RBC) [Entitic vol] 96.3 fL Normal 81.0-100.0 [facility] Comment on above: Performed By: #### A KIMBERLY, ADIFF, APTT, MDW, GFR, CMP, PRO, TROPHS, PBNP, CBC #### [place] [address] Platelet 164 10 3/mcL Normal 150-450 [facility] Comment on above: Performed By: #### A KIMBERLY, ADIFF, APTT, MDW, GFR, CMP, PRO, TROPHS, PBNP, CBC #### [place] [address] Platelet mean volume (Bld) [Entitic vol] 9.5 fL Normal 6.4-10.5 [facility] Comment on above: Performed By: #### A KIMBERLY, ADIFF, APTT, MDW, GFR, CMP, PRO, TROPHS, PBNP, CBC #### [address] [address] RBC 5.04 10 6/mcL Normal 4.50-6.00 [facility] Comment on above: Performed By: #### A KIMBERLY, ADIFF, APTT, MDW, GFR, CMP, PRO, TROPHS, PBNP, CBC #### [address] [address] WBC 5.9 10 3/mcL Normal 4.5-10.8 [facility] Comment on above: Performed By: #### A KIMBERLY, ADIFF, APTT, MDW, GFR, CMP, PRO, TROPHS, PBNP, CBC #### [address] [address] CMPon 10-17-2024 Albumin Level 3.8 G/dL Normal 3.5-5.0 [facility] Comment on above: Performed By: #### A KIMBERLY, ADIFF, APTT, MDW, GFR, CMP, PRO, TROPHS, PBNP, CBC #### [address] [address] Albumin/Globulin [Mass ratio] 1.2 {ratio} Normal 1.1-2.5 [facility] Comment on above: Performed By: #### A KIMBERLY, ADIFF, APTT, MDW, GFR, CMP, PRO, TROPHS, PBNP, CBC #### [address] [address] ALP [Catalytic activity/Vol] 63 U/L Normal 40-135 [facility] Comment on above: Performed By: #### A KIMBERLY, ADIFF, APTT, MDW, GFR, CMP, PRO, TROPHS, PBNP, CBC #### [address] [address] ALT [Catalytic activity/Vol] 31 U/L Normal 16-63 [facility] Comment on above: Performed By: #### A KIMBERLY, ADIFF, APTT, MDW, GFR, CMP, PRO, TROPHS, PBNP, CBC #### [address] [address] AST [Catalytic activity/Vol] 22 U/L Normal 10-40 [facility] Comment on above: Performed By: #### A KIMBERLY, ADIFF, APTT, MDW, GFR, CMP, PRO, TROPHS, PBNP, CBC #### [address] [address] Bili Total 0.6 mg/dL Normal 0.2-1.0 [facility] Comment on above: Result Comment: Use of this assay is not recommended for patients undergoing treatment with eltrombopag due to the potential for falsely elevated results. Performed By: #### A KIMBERLY, ADIFF, APTT, MDW, GFR, CMP, PRO, TROPHS, PBNP, CBC #### [place] [id number] BUN/Creatinine Ratio 12 ratio Normal 7-[address] [facility] Comment on above: Performed By: #### A KIMBERLY, ADIFF, APTT, MDW, GFR, CMP, PRO, TROPHS, PBNP, CBC #### [address] [address] Calcium [Mass/Vol] 8.9 mg/dL Normal 8.4-10.2 [facility] Comment on above: Performed By: #### A KIMBERLY, ADIFF, APTT, MDW, GFR, CMP, PRO, TROPHS, PBNP, CBC #### [address] [address] Chloride [Moles/Vol] 104 mmol/L Normal 98-[address] [facility] Comment on above: Performed By: #### A KIMBERLY, ADIFF, APTT, MDW, GFR, CMP, PRO, TROPHS, PBNP, CBC #### [address] [address] CO2 [Moles/Vol] 28 mmol/L Normal 22-29 [facility] Comment on above: Performed By: #### A KIMBERLY, ADIFF, APTT, MDW, GFR, CMP, PRO, TROPHS, PBNP, CBC #### [address] [address] Creatinine [Mass/Vol] 0.89 mg/dL Normal 0.67-1.17 [facility] Comment on above: Performed By: #### A KIMBERLY, ADIFF, APTT, MDW, GFR, CMP, PRO, TROPHS, PBNP, CBC #### [address] [address] Electrolyte Balance 6.0 mEq/L Normal 4.0-15.0 [facility] Comment on above: Performed By: #### A KIMBERLY, ADIFF, APTT, MDW, GFR, CMP, PRO, TROPHS, PBNP, CBC #### [address] [address] Globulin 3.1 G/dL Normal 2.7-4.4 [facility] Comment on above: Performed By: #### A KIMBERLY, ADIFF, APTT, MDW, GFR, CMP, PRO, TROPHS, PBNP, CBC #### [address] [address] Glucose [Mass/Vol] 95 mg/dL Normal 70-105 [facility] Comment on above: Performed By: #### A KIMBERLY, ADIFF, APTT, MDW, GFR, CMP, PRO, TROPHS, PBNP, CBC #### [address] [address] Potassium [Moles/Vol] 4.3 mmol/L Normal 3.5-5.1 [facility] Comment on above: Performed By: #### A KIMBERLY, ADIFF, APTT, MDW, GFR, CMP, PRO, TROPHS, PBNP, CBC #### [address] [address] Sodium [Moles/Vol] 138 mmol/L Normal 136-145 [facility] Comment on above: Performed By: #### A KIMBERLY, ADIFF, APTT, MDW, GFR, CMP, PRO, TROPHS, PBNP, CBC #### [address] [address] Total Protein 6.9 G/dL Normal 6.4-8.2 [facility] Comment on above: Performed By: #### A KIMBERLY, ADIFF, APTT, MDW, GFR, CMP, PRO, TROPHS, PBNP, CBC #### [facility] [address] [place], [place] [address] Urea nitrogen [Mass/Vol] 11 mg/dL Normal 7-18 [facility] Comment on above: Performed By: #### A KIMBERLY, ADIFF, APTT, MDW, GFR, CMP, PRO, TROPHS, PBNP, CBC #### [place] [address] [place], [place] [address] CT ANGIOGRAPHY CHEST W/CONTR Iam 10-17-2024 CT [...] 10/17/2024 2:34:48 PM Ordering Provider: DAYAN KIDD [facility] CT ANGIOGRAPHY HEAD W/ CONTR Iam 10-17-2024 [...] 10/17/2024 1:51:26 PM Ordering Provider: DAYAN KIDD [facility] CT ANGIOGRAPHY NECK W/CONTRA STon 10-17-2024 CT [...] 10/17/2024 1:48:02 PM Ordering Provider: DAYAN KIDD [facility] LABORATORYOrdered By: SYSTEM SYSTEM on 10-17-2024 Albumin [...] Comment on above: Interpretive Data: Anayeli mathur [employer] (CHEST, 1991, 102:312S-25S) [...] ng/L Male: 0-76 ng/L Testing performed on [employer] using a homogeneous sandwich chemiluminescent immunoassay based on [employer] technology. Urea nitrogen [Mass/Vol] 11 mg/dL Normal 7 - 18 mg/dL AO ADM SS Urea nitrogen/Creatinine [Mass ratio] 12 ratio Normal 7 - 27 ratio AO ADM SS WBC (Bld) [#/Vol] 5.9 103/mcL Normal 4.5 - 10.8 10^3/mcL AO Workflow SS PBNPon 10-17-2024 Natriuretic peptide B (Bld) [Mass/Vol] 15 pg/mL Normal 0-125 [facility] Comment on above: Result Comment: NT-p roBNP results of less than 300 pg/mL effectively rules out acute congestive heart failure with 99% negative predictive value. Performed By: #### A KIMBERLY, ADIFF, APTT, MDW, GFR, CMP, PRO, TROPHS, PBNP, CBC ####[address] [place], [place] [address] PROon 10-17-2024 PT Coag (PPP) [Time] 10.9 s Normal 9.0-14.[address] [facility] Comment on above: Performed By: #### A KIMBERLY, ADIFF, APTT, MDW, GFR, CMP, PRO, TROPHS, PBNP, CBC #### [facility] [address] [place], [place] [address] PT International Ratio 1.0 Normal [facility] Comment on above: Result Comment: [employer] (CHEST, 1992, 102:312S-25S) recommended therapeutic range for oral anticoagulant therapy is: LOW RISK: Prophylaxis of venous thrombosis INR: 2.0-3.0 Treatment of pulmonary embolism 2.0-3.0 Prevention of systemic embolism 2.0-3.0 HIGH RISK: Mechanical prosthetic valves 2.5-3.5 Performed By: #### A KIMBERLY, ADIFF, APTT, MDW, GFR, CMP, PRO, TROPHS, PBNP, CBC #### [place] [address] [place], [place] [address] [facility] High Sensitivity Troponin I 5 ng/L Normal 0-76 [facility] Comment on above: Result Comment: High Sensitive Troponin I Reference Ranges: Female: 0-51 ng/L Male: 0-76 ng/L Testing performed on [employer] using a homogeneous sandwich chemiluminescent immunoassay based on [employer] technology. Performed By: #### A KIMBERLY, ADIFF, APTT, MDW, GFR, CMP, PRO, TROPHS, PBNP, CBC ####[place] [address] [place], [place] [address] 12 Lead EKGon 10-15-2024 12 Lead EKG [facility] [address] [place] [id number] 12 Lead EKG 10/15/24 1231 MR#: [id number] Acct: [id number] Name: ANDREW MCLEAN JrPing Rep #: [id number] : 1980 44 From: Yoshi Catalan MD [...] Normal sinus rhythm Normal ECG Confirmed by YOSHI CATALAN MD ([id number]), science editor ELIECER GUERRA ([id number]) on 10/17/2024 11:31:52 AM Referred By: Confirmed By: YOSHI CATALAN MD 10/17/24 1131 Date Yoshi Catalan MD CC: Dr. Kenny Wells, DO; ZAHRAA Lind; No Primary Care Physician Signed Normal [facility] Absolute lymphocyte countOrd ered By: Fallon Kinney on 10-15-2024 Lymphocytes Auto (Unsp spec) [#/Vol] 1.89 10*3/uL 0.83-4.51 [facility] Absolute neutrophil countOrd ered By: Fallon Kinney on 10-15-2024 Neutrophils (Bld) [#/Vol] 5.2 10*3/uL 2.0-7.7 [facility] Anion gap in Serum or Plasma Ordered By: Fallon Kinney on 10-15-2024 Anion gap [Moles/Vol] 12 mmol/L 5-15 [facility] Automated lymphocyte count a s percentage of total leukocytesOrdered By: Fallon Kinney on 10-15-2024 Lymphocytes/100 WBC Auto (Unsp spec) 24.5 % 19-41 [facility] BUN/creatinine ratioOrdered By: Fallon Kinney on 10-15-2024 Urea nitrogen/Creatinine [Mass ratio] 11.1 mg/mg 10-20 [facility] Basophil percentageOrdered B y: Fallon Kinney on 10-15-2024 Basophils/100 WBC (Bld) 0.8 % 0-1 [facility] Bilirubin, totalOrdered By: Fallon Kinney on 10-15-2024 Bilirubin [Mass/Vol] 0.60 mg/dL 0.00-1.30 [facility] CBC W/Diff, Automatedon 10-04 Absolute Lymph 1.89 X10 3/uL Normal 0.83-4.51 [facility] Comment on above: Performed By: #### L 100.0100, BTSPAT, L501.5200, L501.9985, M100.651 #### [facility] [address] [place], [address] Absolute Neut 5.2 X10 3/uL Normal 2.0-7.7 [facility] Comment on above: Performed By: #### L 100.0100, BTSPAT, L501.5200, L501.9985, M100.651 #### [facility] [address] [place], [address] Basophils/100 WBC (Bld) 0.8 % Normal 0-1 [facility] Comment on above: Performed By: #### L 100.0100, BTSPAT, L501.5200, L501.9985, M100.651 #### [facility] [address] [place], [address] Eosinophils/100 WBC (Bld) 1.0 % Normal 0-5 [facility] Comment on above: Performed By: #### L 100.0100, BTSPAT, L501.5200, L501.9985, M100.651 #### [facility] [address] [place], [address] Erythrocyte distribution width (RBC) [Ratio] 12.4 % Normal 11.6-14.6 [facility] Comment on above: Performed By: #### L 100.0100, BTSPAT, L501.5200, L501.9985, M100.651 #### [facility] [address] [place], [address] Hematocrit (Bld) [Volume fraction] 50.9 % Normal 40-54 [facility] Comment on above: Performed By: #### L 100.0100, BTSPAT, L501.5200, L501.9985, M100.651 #### [facility] [address] [place], [address] Hemoglobin (Bld) [Mass/Vol] 17.8 g/dL High 13.0-16.5 [facility] Comment on above: Performed By: #### L 100.0100, BTSPAT, L501.5200, L501.9985, M100.651 #### [facility] [address] [place], [address] IG% 0.400 Normal 0.0-0.9 [facility] Comment on above: Result Comment: IG% - Immature Granulocytes (promyelocytes, myelocytes and metamyelocytes) > 1% indicates that a LEFT SHIFT is Present. Performed By: #### L 100.0100, BTSPAT, L501.5200, L501.9985, M100.651 #### [facility] [address] [place], [address] Lymphocytes/100 WBC (Bld) 24.5 % Normal 19-41 [facility] Comment on above: Performed By: #### L 100.0100, BTSPAT, L501.5200, L501.9985, M100.651 #### [facility] [address] [place], [address] MCH (RBC) [Entitic mass] 33.5 pg High 27.0-32.0 [facility] Comment on above: Performed By: #### L 100.0100, BTSPAT, L501.5200, L501.9985, M100.651 #### [facility] [address] [place], [address] MCHC (RBC) [Mass/Vol] 35.0 g/dL Normal 32-36 [facility] Comment on above: Performed By: #### L 100.0100, BTSPAT, L501.5200, L501.9985, M100.651 #### [facility] [address] [place], [address] MCV (RBC) [Entitic vol] 95.7 fL High 80-94 [facility] Comment on above: Performed By: #### L 100.0100, BTSPAT, L501.5200, L501.9985, M100.651 #### [facility] [address] [place], [address] Monocytes/100 WBC (Bld) 6.0 % Normal 0-10 [facility] Comment on above: Performed By: #### L 100.0100, BTSPAT, L501.5200, L501.9985, M100.651 #### [facility] [address] [place], [address] Neutrophils/100 WBC (Bld) 67.3 % Normal 47-70 [facility] Comment on above: Performed By: #### L 100.0100, BTSPAT, L501.5200, L501.9985, M100.651 #### [facility] [address] [place], [address] Nucleated RBC (Bld) [#/Vol] 0 10*3/uL Normal 0-5 [facility] Comment on above: Performed By: #### L 100.0100, BTSPAT, L501.5200, L501.9985, M100.651 #### [facility] [address] [place], [address] Platelet mean volume (Bld) [Entitic vol] 11.3 fL Normal 6.2-12.0 [facility] Comment on above: Performed By: #### L 100.0100, BTSPAT, L501.5200, L501.9985, M100.651 #### [facility] [address] [place], [address] Platelets (Bld) [#/Vol] 209 10*3/uL Normal 150-450 [facility] Comment on above: Performed By: #### L 100.0100, BTSPAT, L501.5200, L501.9985, M100.651 #### [facility] [address] [place], [address] RBC (Bld) [#/Vol] 5.32 10*6/uL Normal 4.6-6.2 [facility] Comment on above: Performed By: #### L 100.0100, BTSPAT, L501.5200, L501.9985, M100.651 #### [facility] [address] [place], [address] RDW SD 43.6 fl Normal 35.1-43.9 [facility] Comment on above: Performed By: #### L 100.0100, BTSPAT, L501.5200, L501.9985, M100.651 #### [facility] [address] [place], [address] WBC (Bld) [#/Vol] 7.7 10*3/uL Normal 4.4-11.0 [facility] Comment on above: Performed By: #### L 100.0100, BTSPAT, L501.5200, L501.9985, M100.651 #### [facility] [address] [place], [address] CTA Chst, Abd, Pel W and/or WOon 10-15-2024 CTA Chst, Abd, Pel W and/or WO [facility] [address] [place] [address] CTA Chst, Abd, Pel W and/or WO MR#: [id number] Acct: [id number] Name: ANDREW MCLEAN GUILLE Huston Rep #: [id number] : 1980 M 44 From: Talisha Escobedo nd, MD PCP: Care Physician,No Primary Status: [facility] ER Study: CTA Chst, Abd, Pel W and/or WO Date of Exam: 0 10/15/24 Exam# [id number] Ordering Dr: Kenny Wells DO PROCEDURE: CTA [...] THE CHEST, ABDOMEN OR PELVIS. Reading Location: [id number] CC: Dr. 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, [address] Albumin/Globulin [Mass ratio] 1.6 {ratio} Normal 0.9-2.4 [facility] Comment on above: Performed By: #### L 100.0100, BTSPAT, L501.5200, L501.9985, M100.651 #### [facility] [address] [place], [address] ALK PHOS 66 U/L Normal 40-129 [facility] Comment on above: Performed By: #### L 100.0100, BTSPAT, L501.5200, L501.9985, M100.651 #### [facility] [address] [place], [address] ALT [Catalytic activity/Vol] 32 U/L Normal <=46 [facility] Comment on above: Performed By: #### L 100.0100, BTSPAT, L501.5200, L501.9985, M100.651 #### [facility] [address] [place], [address] AST [Catalytic activity/Vol] 25 U/L Normal <=37 [facility] Comment on above: Performed By: #### L 100.0100, BTSPAT, L501.5200, L501.9985, M100.651 #### [facility] [address] [place], [address] Bilirubin [Mass/Vol] 0.60 mg/dL Normal 0.00-1.30 [facility] Comment on above: Performed By: #### L 100.0100, BTSPAT, L501.5200, L501.9985, M100.651 #### [facility] [address] [place], [address] BUN/CRE 11.1 RATIO Normal 10-20 [facility] Comment on above: Performed By: #### L 100.0100, BTSPAT, L501.5200, L501.9985, M100.651 #### [facility] [address] [place], [address] Calcium [Mass/Vol] 9.4 mg/dL Normal 7.6-11.0 [facility] Comment on above: Performed By: #### L 100.0100, BTSPAT, L501.5200, L501.9985, M100.651 #### [facility] [address] [place], [address] Chloride [Moles/Vol] 108 mmol/L Normal 98-108 [facility] Comment on above: Performed By: #### L 100.0100, BTSPAT, L501.5200, L501.9985, M100.651 #### [facility] [address] [place], [address] CO2 [Moles/Vol] 22.7 mmol/L Normal 21.0-32.0 [facility] Comment on above: Performed By: #### L 100.0100, BTSPAT, L501.5200, L501.9985, M100.651 #### [facility] [address] [place], [address] Creatinine [Mass/Vol] 0.96 mg/dL Normal 0.70-1.20 [facility] Comment on above: Performed By: #### L 100.0100, BTSPAT, L501.5200, L501.9985, M100.651 #### [facility] [address] [place], [address] ECRCL 97.17 ml/min Normal 50-250 [facility] Comment on above: Performed By: #### L 100.0100, BTSPAT, L501.5200, L501.9985, M100.651 #### [facility] [address] [place], [address] GAP 12 Normal 5-15 [facility] Comment on above: Performed By: #### L 100.0100, BTSPAT, L501.5200, L501.9985, M100.651 #### [facility] [address] [place], [address] GFR/1.73 sq M.predicted among non-blacks MDRD (S/P/Bld) [Vol rate/Area] 100 mL/min/{1.73_m2} Normal >60 [facility] Comment on above: Result Comment: mL/m in/1.73m2 CKD-EPI Creatinine Equation (2020) Performed By: #### L 100.0100, BTSPAT, L501.5200, L501.9985, M100.651 #### [facility] [address] [place], [address] Globulin (S) [Mass/Vol] 2.9 g/dL Normal 2.2-4.2 [facility] Comment on above: Performed By: #### L 100.0100, BTSPAT, L501.5200, L501.9985, M100.651 #### [facility] [address] [place], [address] Glucose [Mass/Vol] 85 mg/dL Normal 70-99 [facility] Comment on above: Performed By: #### L 100.0100, BTSPAT, L501.5200, L501.9985, M100.651 #### [facility] [address] [place], [address] Potassium [Moles/Vol] 4.2 mmol/L Normal 3.3-5.1 [facility] Comment on above: Performed By: #### L 100.0100, BTSPAT, L501.5200, L501.9985, M100.651 #### [facility] [address] [place], [address] Sodium [Moles/Vol] 142 mmol/L Normal 133-145 [facility] Comment on above: Performed By: #### L 100.0100, BTSPAT, L501.5200, L501.9985, M100.651 #### [facility] [address] [place], [address] T PROT 7.5 g/dL Normal 5.9-8.4 [facility] Comment on above: Performed By: #### L 100.0100, BTSPAT, L501.5200, L501.9985, M100.651 #### [facility] [address] [place], [address] Urea nitrogen [Mass/Vol] 11 mg/dL Normal 4-19 [facility] Comment on above: Performed By: #### L 100.0100, BTSPAT, L501.5200, L501.9985, M100.651 #### [facility] [address] [place], [address] Emergency Department Summary on 10-15-2024 Emergency Department Summary [facility] Medical Records Department [address] [place] [address] Emergency Department Summary 10/15/24 MR#: [id number] Acct: [id number] Name: ANDREW MCLEAN Rep #: [id number] : 1980 44 From: Fallon VITAL PCP: [...] surgery or travel, hemoptysis, hormone use PFSH [facility] Medical History Migraines Asthma Internal hemorrhage Hypertension [...] Ox 99 (more content not included)... Normal [facility] Eosinophil percentageOrdered By: Fallon Kinney on 10-15-2024 Eosinophils/100 WBC (Bld) 1.0 % 0-5 [facility] Erythrocyte distribution wid th ratioOrdered By: Fallon Kinney on 10-15-2024 Erythrocyte distribution width (RBC) [Ratio] 12.4 % 11.6-14.6 [facility] Erythrocyte distribution wid th standard deviationOrdered By: Fallon Kinney on 10-15-2024 Erythrocyte distribution width (RBC) [Ratio] 43.6 fl 35.1-43.9 [facility] Glomerular filtration rate ( GFR) estimation/1.73 sq m using serum, plasma, or whole bOrdered By: Fallon Kinney on 10-15-2024 GFR/1.73 sq M.predicted among non-blacks MDRD (S/P/Bld) [Vol rate/Area] 100 mL/min/{1.73_m2} >60 [facility] Comment on above: mL/min/1.73m2 CKD-EP I Creatinine Equation (2020) Hematocrit Auto (Bld) [Volum e fraction]Ordered By: Fallon Kinney on 10-15-2024 Hematocrit (Bld) [Volume fraction] 50.9 % 40-54 [facility] Hemoglobin measurementOrdere d By: Fallon Kinney on 10-15-2024 Hemoglobin (Bld) [Mass/Vol] 17.8 g/dL High 13.0-16.5 [facility] Immature granulocytes/100 WB C Auto (Bld)Ordered By: Fallon Kinney on 10-15-2024 Immature granulocytes/100 WBC (Bld) 0.400 % 0.0-0.9 [facility] Comment on above: IG% - Immature Granu locytes (promyelocytes, myelocytes and metamyelocytes) > 1% indicates that a LEFT SHIFT is Present. L499.0042on 10-15-2024 Trop T High Sen < 6 Normal <=22 [facility] Comment on above: Result Comment: Hemo lysis present, Results??could be affected. ?? Performed By: #### L 100.0100, BTSPAT, L501.5200, L501.9985, M100.651 #### [facility] [address] [place], [address] L499.0043on 10-15-2024 Trop T High Sen Normal <=22 [facility] Comment on above: Result Comment: Canc elled via OM: MD Ordered Performed By: #### L 499.0043 #### [facility] [address] [place], [address] L501.4021on 10-15-2024 Trop T High Sen < 6 Normal <=22 [facility] Comment on above: Performed By: #### L 100.0100, BTSPAT, L501.5200, L501.9985, M100.651 #### [facility] [address] [place], [address] Laboratory - Chemistry and C hemistry - challengeOrdered By: Fallon Kinney on 10-15-2024 AST [Catalytic activity/Vol] 25 U/L <38 [facility] MCV (mean corpuscular volume ) determinationOrdered By: Fallon Kinney on 10-15-2024 MCV (RBC) [Entitic vol] 95.7 fL High 80-94 [facility] Mean corpuscular hemoglobin (MCH) determinationOrdered By: Fallon Kinney on 10-15-2024 MCH (RBC) [Entitic mass] 33.5 pg High 27.0-32.0 [facility] Mean corpuscular hemoglobin concentration (MCHC) determinationOrdered By: Fallon Kinney on 10-15-2024 MCHC (RBC) [Mass/Vol] 35.0 g/dL 32-36 [facility] Mean platelet volume determi nationOrdered By: Fallon Kinney on 10-15-2024 Platelet mean volume (Bld) [Entitic vol] 11.3 fL 6.2-12.0 [facility] Monocyte percentageOrdered B y: Fallon Kinney on 07-12-2025 Monocytes/100 WBC (Bld) 6.0 % 0-10 [facility] Neutrophil percentageOrdered By: Fallon Kinney on 10-15-2024 Neutrophils/100 WBC (Bld) 67.3 % 47-70 [facility] Nucleated red blood cell per centageOrdered By: Fallon Kinney on 10-15-2024 Nucleated RBC/100 WBC (Bld) [Ratio] 0 % 0-5 [facility] Platelet countOrdered By: Beatris Kinney on 10-15-2024 Platelets (Bld) [#/Vol] 209 10*3/uL 150-450 [facility] Potassium measurement (mass/ volume)Ordered By: Fallon Kinney on 10-15-2024 Potassium (Unsp spec) [Mass/Vol] 4.2 mmol/L 3.3-5.1 [facility] RBC Auto (Bld) [#/Vol]Ordere d By: Fallon Kinney on 10-15-2024 RBC (Bld) [#/Vol] 5.32 10*6/uL 4.6-6.2 [facility] Serum creatinine measurement (mass/volume)Ordered By: Fallon Kinney on 10-15-2024 Creatinine [Mass/Vol] 0.96 mg/dL 0.70-1.20 [facility] Serum globulin measurementOr dered By: Fallon Kinney on 10-15-2024 Globulin (S) [Mass/Vol] 2.9 g/dL 2.2-4.2 [facility] Serum glucose measurement (m ass/volume)Ordered By: Fallon Kinney on 10-15-2024 Glucose [Mass/Vol] 85 mg/dL 70-99 [facility] Serum or plasma alanine huggins otransferase (ALT) measurementOrdered By: Fallon Kinney on 10-15-2024 ALT [Catalytic activity/Vol] 32 U/L <47 [facility] Serum or plasma albumin zo urement (mass/volume)Ordered By: Fallon Kinney on 10-15-2024 Albumin [Mass/Vol] 4.7 g/dL 3.5-5.0 [facility] Serum or plasma albumin/glob ulin mass ratioOrdered By: Fallon Kinney on 10-15-2024 Albumin/Globulin [Mass ratio] 1.6 {ratio} 0.9-2.4 [facility] Serum or plasma alkaline cy sphatase measurementOrdered By: Fallon Kinney on 10-15-2024 ALP [Catalytic activity/Vol] 66 U/L 40-129 [facility] Serum or plasma calcium zo urement (mass/volume)Ordered By: Fallon Kinney on 10-15-2024 Calcium [Mass/Vol] 9.4 mg/dL 7.6-11.0 [facility] Serum or plasma urea nitroge n measurement (mass/volume)Ordered By: Fallon Kinney on 10-15-2024 Urea nitrogen [Mass/Vol] 11 mg/dL 4-19 [facility] Sodium levelOrdered By: Fallon Kinney on 10-15-2024 Sodium [Moles/Vol] 142 mmol/L 133-145 [facility] Total proteinOrdered By: Birgit Kinney on 10-15-2024 Protein [Mass/Vol] 7.5 g/dL 5.9-8.4 [facility] Troponin T.cardiac [Mass/vol ume] in Serum or Plasma by High sensitivity methodOrdered By: Fallon Kinney on 10-15-2024 Troponin T.cardiac High sensitivity method [Mass/Vol] < 6 ng/L <22 [facility] Comment on above: Hemolysis present, R esults could be affected. Troponin T.cardiac High sensitivity method [Mass/Vol] < 6 ng/L <22 [facility] White blood cell (WBC) count Ordered By: Fallon Kinney on 10-15-2024 WBC (Bld) [#/Vol] 7.7 10*3/uL 4.4-11.0 [facility] Abdomen/Pelvis W IV Cont ONL Yon 05-02-2024 Abdomen/Pelvis W IV Cont ONLY [facility] [address] [place] [address] Abdomen/Pelvis W IV Cont ONLY MR#: [id number] Acct: [id number] Name: ANDREW MCLEAN Jr. Rep #: [id number] : 1980 M 44 From: Jamee Bell PCP: Care Physician,No Primary Status: REG ER Study: Abdomen/Pelvis W IV Cont ONLY Date of Exam: Exam# [id number] Ordering Dr: Rhett Tyler DO [id number] EXAM: CT Abdomen And Pelvis W/ Contrast [...] Signed: Jamee Taylor MD at 4:14 EST , CC: Dr. 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, [address] Absolute Neut 3.9 X10 3/uL Normal 2.0-7.7 [facility] Comment on above: Performed By: #### L 100.0100, L500.4050, L501.2450, M100.7900 #### [facility] [address] [place], [address] Basophils/100 WBC (Bld) 0.7 % Normal 0-1 [facility] Comment on above: Performed By: #### L 100.0100, L500.4050, L501.2450, M100.7900 #### [facility] [address] [place], [address] Eosinophils/100 WBC (Bld) 1.3 % Normal 0-5 [facility] Comment on above: Performed By: #### L 100.0100, L500.4050, L501.2450, M100.7900 #### [facility] [address] [place], [address] Erythrocyte distribution width (RBC) [Ratio] 12.0 % Normal 11.6-14.6 [facility] Comment on above: Performed By: #### L 100.0100, L500.4050, L501.2450, M100.7900 #### [facility] [address] [place], [address] Hematocrit (Bld) [Volume fraction] 49.2 % Normal 40-54 [facility] Comment on above: Performed By: #### L 100.0100, L500.4050, L501.2450, M100.7900 #### [facility] [address] [place], [address] Hemoglobin (Bld) [Mass/Vol] 17.9 g/dL High 13.0-16.5 [facility] Comment on above: Performed By: #### L 100.0100, L500.4050, L501.2450, M100.7900 #### [facility] [address] [place], [address] IG% 0.300 Normal 0.0-0.9 [facility] Comment on above: Result Comment: IG% - Immature Granulocytes (promyelocytes, myelocytes and metamyelocytes) > 1% indicates that a LEFT SHIFT is Present. Performed By: #### L 100.0100, L500.4050, L501.2450, M100.7900 #### [facility] [address] [place], [address] Lymphocytes/100 WBC (Bld) 51.0 % High 19-41 [facility] Comment on above: Performed By: #### L 100.0100, L500.4050, L501.2450, M100.7900 #### [facility] [address] [place], [address] MCH (RBC) [Entitic mass] 33.4 pg High 27.0-32.0 [facility] Comment on above: Performed By: #### L 100.0100, L500.4050, L501.2450, M100.7900 #### [facility] [address] [place], [address] MCHC (RBC) [Mass/Vol] 36.4 g/dL High 32-36 [facility] Comment on above: Performed By: #### L 100.0100, L500.4050, L501.2450, M100.7900 #### [facility] [address] [place], [address] MCV (RBC) [Entitic vol] 91.8 fL Normal 80-94 [facility] Comment on above: Performed By: #### L 100.0100, L500.4050, L501.2450, M100.7900 #### [facility] [address] [place], [address] Monocytes/100 WBC (Bld) 6.4 % Normal 0-10 [facility] Comment on above: Performed By: #### L 100.0100, L500.4050, L501.2450, M100.7900 #### [facility] [address] [place], [address] Neutrophils/100 WBC (Bld) 40.3 % Low 47-70 [facility] Comment on above: Performed By: #### L 100.0100, L500.4050, L501.2450, M100.7900 #### [facility] [address] [place], [address] Nucleated RBC (Bld) [#/Vol] 0 10*3/uL Normal 0-5 [facility] Comment on above: Performed By: #### L 100.0100, L500.4050, L501.2450, M100.7900 #### [facility] [address] [place], [address] Platelet mean volume (Bld) [Entitic vol] 11.6 fL Normal 6.2-12.0 [facility] Comment on above: Performed By: #### L 100.0100, L500.4050, L501.2450, M100.7900 #### [facility] [address] [place], [address] Platelets (Bld) [#/Vol] 221 10*3/uL Normal 150-450 [facility] Comment on above: Performed By: #### L 100.0100, L500.4050, L501.2450, M100.7900 #### [facility] [address] [place], [address] RBC (Bld) [#/Vol] 5.36 10*6/uL Normal 4.6-6.2 [facility] Comment on above: Performed By: #### L 100.0100, L500.4050, L501.2450, M100.7900 #### [facility] [address] [place], [address] RDW SD 40.3 fl Normal 35.1-43.9 [facility] Comment on above: Performed By: #### L 100.0100, L500.4050, L501.2450, M100.7900 #### [facility] [address] [place], [address] WBC (Bld) [#/Vol] 9.8 10*3/uL Normal 4.4-11.0 [facility] Comment on above: Performed By: #### L 100.0100, L500.4050, L501.2450, M100.7900 #### [facility] [address] [place], [address] Comprehensive Metabolic [facility] 05-02-2024 Albumin [Mass/Vol] 4.4 g/dL Normal 3.2-5.0 [facility] Comment on above: Performed By: #### L 100.0100, L500.4050, L501.2450, M100.7900 #### [facility] [address] [place], [address] Albumin/Globulin [Mass ratio] 1.3 {ratio} Normal 0.9-2.4 [facility] Comment on above: Performed By: #### L 100.0100, L500.4050, L501.2450, M100.7900 #### [facility] [address] [place], [address] ALK P 56 U/L Normal 45-117 [facility] Comment on above: Performed By: #### L 100.0100, L500.4050, L501.2450, M100.7900 #### [facility] [address] [place], [address] ALT [Catalytic activity/Vol] 56 U/L Normal 16-61 [facility] Comment on above: Performed By: #### L 100.0100, L500.4050, L501.2450, M100.7900 #### [facility] [address] [place], [address] AST [Catalytic activity/Vol] 25 U/L Normal 15-37 [facility] Comment on above: Performed By: #### L 100.0100, L500.4050, L501.2450, M100.7900 #### [facility] [address] [place], [address] Bilirubin [Mass/Vol] 0.60 mg/dL Normal 0.20-1.00 [facility] Comment on above: Result Comment: For patients on eltrombopag therapy, use of Dimension [place] TBIL is not recommended. Performed By: #### L 100.0100, L500.4050, L501.2450, M100.7900 #### [facility] [address] [place], [address] BUN/CRE 9.5 RATIO Low 10-20 [facility] Comment on above: Performed By: #### L 100.0100, L500.4050, L501.2450, M100.7900 #### [facility] [address] [place], [address] CA,Total 9.2 mg/dL Normal 8.5-10.1 [facility] Comment on above: Performed By: #### L 100.0100, L500.4050, L501.2450, M100.7900 #### [facility] [address] [place], [address] Chloride [Moles/Vol] 112 mmol/L High 98-107 [facility] Comment on above: Performed By: #### L 100.0100, L500.4050, L501.2450, M100.7900 #### [facility] [address] [place], [address] CO2 [Moles/Vol] 24.0 mmol/L Normal 21.0-32.0 [facility] Comment on above: Performed By: #### L 100.0100, L500.4050, L501.2450, M100.7900 #### [facility] [address] [place], [address] Creatinine [Mass/Vol] 0.95 mg/dL Normal 0.70-1.30 [facility] Comment on above: Result Comment: The validity of the calculated GFR GFRAA in patients over 70 years has not been determined. Clinical correlation is essential. Performed By: #### L 100.0100, L500.4050, L501.2450, M100.7900 #### [facility] [address] [place], [address] ECRCL 107.03 ml/min Normal [facility] Comment on above: Performed By: #### L 100.0100, L500.4050, L501.2450, M100.7900 #### [facility] [address] [place], [address] EST GFR - AA 110 mL/min Normal >60 [facility] Comment on above: Result Comment: Afri can Micronesian GFR Calc Performed By: #### L 100.0100, L500.4050, L501.2450, M100.7900 #### [facility] [address] [place], [address] GAP 7 Normal 5-15 [facility] Comment on above: Performed By: #### L 100.0100, L500.4050, L501.2450, M100.7900 #### [facility] [address] [place], [address] GFR/1.73 sq M.predicted among non-blacks MDRD (S/P/Bld) [Vol rate/Area] 91 mL/min/{1.73_m2} Normal >60 [facility] Comment on above: Result Comment: Non- GFR Calc Performed By: #### L 100.0100, L500.4050, L501.2450, M100.7900 #### [facility] [address] [place], [address] Globulin (S) [Mass/Vol] 3.5 g/dL Normal 2.2-4.2 [facility] Comment on above: Performed By: #### L 100.0100, L500.4050, L501.2450, M100.7900 #### [facility] [address] [place], [address] Glucose [Mass/Vol] 80 mg/dL Normal 74-106 [facility] Comment on above: Performed By: #### L 100.0100, L500.4050, L501.2450, M100.7900 #### [facility] [address] [place], [address] Potassium [Moles/Vol] 3.9 mmol/L Normal 3.5-5.1 [facility] Comment on above: Performed By: #### L 100.0100, L500.4050, L501.2450, M100.7900 #### [facility] [address] [place], [address] Sodium [Moles/Vol] 143 mmol/L Normal 136-145 [facility] Comment on above: Performed By: #### L 100.0100, L500.4050, L501.2450, M100.7900 #### [facility] [address] [place], [address] T PROT 7.9 g/dL Normal 6.4-8.2 [facility] Comment on above: Performed By: #### L 100.0100, L500.4050, L501.2450, M100.7900 #### [facility] [address] [place], [address] Urea nitrogen [Mass/Vol] 9 mg/dL Normal 7-18 [facility] Comment on above: Performed By: #### L 100.0100, L500.4050, L501.2450, M100.7900 #### [facility] [address] [place], [address] Emergency Department Summary on 05-02-2024 Emergency Department Summary [facility] Medical Records Department [address] [place] [address] Emergency Department Summary 05/02/24 MR#: [id number] Acct: [id number] Name: ANDREW MCLEAN JrPing Rep #: [id number] : 1980 44 From: Rhett Tyler DO [...] hematuria but denies any dysuria or frequency. [facility] Medical History Migraines Asthma Internal hemorrhage Hypertension Home Medications ???Medication ???Instructions ???Recorded ???Last Taken ???Type hydrocortisone 2.5 % topical cream 1 applic [place] QHS #30 grams 01/07/22 Unknown Rx with perineal applicator (Anusol-[facility]) naproxen 500 mg tablet 500 mg PO BID PRN #20 tabs 07/26/23 Unknown Rx Allergy/AdvReac Type Severity Reaction Status Date / Time No Known Allergies Allergy Verified 05/02/24 01:25 Family History Other Liver cancer Ovarian cancer [...] regular rhy (more content not included)... Normal [facility] Lipaseon 05-02-2024 Lipase [Catalytic activity/Vol] 42 U/L Normal 13-75 [facility] [facility] Comment on above: Result Comment: Barbara mason note: LIPASE revised reference range effective 22. New Lipase methodology. Expected to produce lower values than the previous assay method. NEW Reference Range: 13 - 75 U/L Performed By: #### L 100.0100, L500.4050, L501.2450, M100.7900 #### [facility] [address] [place], [address] Partial Thromboplast Timeon 05-02-2024 aPTT Coag (Bld) [Time] 29.0 s Normal 24.1-36.2 [facility] Comment on above: Performed By: #### L 499.0043 #### [facility] [address] [place], [address] Prothrombin Time w/INRon INR Coag (PPP) [Relative time] 0.9 {INR} Normal [facility] Comment on above: Performed By: #### L 499.0043 #### [facility] [address] [place], [address] PT Coag (PPP) [Time] 12.7 s Normal 11.7-14.9 [facility] Comment on above: Performed By: #### L 499.0043 #### [facility] [address] [place], [address] Stool Occult Blood iFOBon STOB Positive Normal [facility] Comment on above: Performed By: #### L 499.0043 #### [facility] [address] [place], [address] Absolute lymphocyte countOrd ered By: Divya Nobles on 04-16-2023 Lymphocytes Auto (Unsp spec) [#/Vol] 1.88 10*3/uL 0.83-4.51 [facility] Basophil percentageOrdered B y: Divya Nobles on 04-16-2023 Basophils/100 WBC (Bld) 0.4 % 0-1 [facility] Chloride [Moles/Vol] 106 mmol/L 98-107 [facility] Eosinophils/100 WBC (Bld) 0.3 % 0-5 [facility] Glucose [Mass/Vol] 107 mg/dL 74-106 [facility] Comment on above: Fasting Glucose resu lt from 100 to 125 mg/dL suggests IMPAIRED HOMEOSTASIS per A.D.A. criteria. Neutrophils (Bld) [#/Vol] 8.2 10*3/uL 2.0-7.7 [facility] Neutrophils/100 WBC (Bld) 75.6 % 47-70 [facility] Potassium [Moles/Vol] 3.3 mmol/L 3.5-5.1 [facility] Sodium [Moles/Vol] 138 mmol/L 136-145 [facility] WBC (Bld) [#/Vol] 10.8 10*3/uL 4.4-11.0 [facility] Blood erythrocytes count (nu mber/volume)Ordered By: Divya Nobles on 04-16-2023 RBC (Bld) [#/Vol] 5.26 10*6/uL 4.6-6.2 [facility] Blood hemoglobin measurement (mass/volume)Ordered By: Divya Nobles on 04-16-2023 Hemoglobin (Bld) [Mass/Vol] 17.2 g/dL 13.0-16.5 [facility] Blood lymphocytes/100 leukoc ytesOrdered By: Divya Nobles on 04-16-2023 Lymphocytes/100 WBC (Bld) 17.4 % 19-41 [facility] Blood monocytes/100 leukocyt esOrdered By: Divya Nobles on 04-16-2023 Monocytes/100 WBC (Bld) 5.9 % 0-10 [facility] Blood platelet mean volumeOr dered By: Divya Nobles on 04-16-2023 Platelet mean volume (Bld) [Entitic vol] 11.3 fL 6.2-12.0 [facility] Determination of erythrocyte mean corpuscular volume (MCV)Ordered By: Divya Nobles on 04-16-2023 MCV (RBC) [Entitic vol] 94.5 fL 80-94 [facility] Hematocrit Auto (Bld) [Volum e fraction]Ordered By: Divya Nobles on 04-16-2023 Hematocrit (Bld) [Volume fraction] 49.7 % 40-54 [facility] - Chemistry and C hemistry - challengeOrdered By: Divya Nobles on 04-16-2023 CO2 [Moles/Vol] 26.0 mmol/L 21.0-32.0 [facility] Urea nitrogen/Creatinine [Mass ratio] 11.9 mg/mg 10-20 [facility] - Hematology and Cell countsOrdered By: Divya Nobles on 04-16-2023 Erythrocyte distribution width (RBC) [Entitic vol] 42.5 fL 35.1-43.9 [facility] Erythrocyte distribution width (RBC) [Ratio] 12.3 % 11.6-14.6 [facility] Immature granulocytes/100 WBC (Bld) 0.400 % 0.0-0.9 [facility] Comment on above: IG% - Immature Granu locytes (promyelocytes, myelocytes and metamyelocytes) > 1% indicates that a LEFT SHIFT is Present. MCH (RBC) [Entitic mass] 32.7 pg 27.0-32.0 [facility] Nucleated RBC/100 WBC (Bld) [Ratio] 0 % 0-5 [facility] MCHC Auto (RBC) [Mass/Vol]Or dered By: Divya Nobles on 04-16-2023 MCHC (RBC) [Mass/Vol] 34.6 g/dL 32-36 [facility] No Panel InformationOrdered By: Divya Nobles on 04-16-2023 D-Dimer Quantitative (PE/DVT) 0.47 FEU/ug/m 0.27-0.49 [facility] Comment on above: NORMAL D-Dimer level (<0.50) indicates no DVT or PE. Estimated Creatinine Clearance Calc 93.33 ml/min [facility] Estimated GFR (MDRD) Amer 103 mL/min >60 [facility] Comment on above: GFR Calc Estimated GFR (MDRD) Non-Af Amer 85 mL/min >60 [facility] Comment on above: Non- GFR Calc Troponin I High Sensitivity 5 pg/mL 3.0-78.0 [facility] Comment on above: Please Note: New Dona t Units and Gender Specific Reference Ranges. For more information see Policy Stat Procedure [place] High Sensitivity Troponin (TNIH) and attachments. Platelets bldOrdered By: Saba Nobles on 04-16-2023 Platelets (Bld) [#/Vol] 189 10*3/uL 150-450 [facility] Serum or plasma calcium zo urement (mass/volume)Ordered By: Divya Nobles on 04-16-2023 Calcium [Mass/Vol] 9.7 mg/dL 8.5-10.1 [facility] Serum or plasma creatinine m easurement (mass/volume)Ordered By: Divya Nobles on 04-16-2023 Creatinine [Mass/Vol] 1.01 mg/dL 0.70-1.30 [facility] Comment on above: The validity of the calculated GFR & GFRAA in patients over 70 years has not been determined. Clinical correlation is essential. Serum or plasma urea nitroge n measurement (mass/volume)Ordered By: Divya Nobles on 04-16-2023 Urea nitrogen [Mass/Vol] 12 mg/dL 7-18 [facility] Thin prep Papanicolaou smear with manual screeningOrdered By: Divya Nobles on 04-16-2023 Thin prep Papanicolaou smear with manual screening 6 5-15 [facility] - Microbiology an d Antimicrobial susceptibilityOrdered By: Christiano Garcia on 04-10-2023 SARS-CoV-2 (COVID-19) RNA WARNER+probe Ql (Unsp spec) Influenzae A [facility] SARS-CoV-2 (COVID-19) RNA WARNER+probe Ql (Unsp spec) Influenzae A [facility] Basophil percentageon 2021 WBC (Bld) [#/Vol] 8.9 10*3/uL 4.4-11.0 [facility] Work Phone: Blood erythrocytes count (nu mber/volume)on 03-03-2022 RBC (Bld) [#/Vol] 5.33 10*6/uL 4.6-6.2 [facility] Work Phone: Blood hemoglobin measurement (mass/volume)on 03-03-2022 Hemoglobin (Bld) [Mass/Vol] 18.4 g/dL 13.0-16.5 [facility] Work Phone: Comment on above: CRITICAL VALUE VERIF IED. CALLED TO [id number] Lindsay Sood.RESULTS READ BACK BY SAME . Blood platelet mean volumeon 03-03-2022 Platelet mean volume (Bld) [Entitic vol] 11.6 fL 6.2-12.0 [facility] Work Phone: Determination of erythrocyte mean corpuscular volume (MCV)on 03-03-2022 MCV (RBC) [Entitic vol] 97.2 fL 80-94 [facility] Work Phone: Hematocrit Auto (Bld) [Volum e fraction]on 03-03-2022 Hematocrit (Bld) [Volume fraction] 51.8 % 40-54 [facility] Work Phone: INR in Blood by Coagulation assayon 03-03-2022 INR Coag (Bld) [Relative time] 1.0 {INR} [facility] Work Phone: Laboratory - Coagulationon 1 05-03-2021 PT Coag (PPP) [Time] 12.6 s 11.7-14.9 [facility] Work Phone: Laboratory - Hematology and Cell countson 03-03-2022 Erythrocyte distribution width (RBC) [Entitic vol] 44.8 fL 35.1-43.9 [facility] Work Phone: [phone] Erythrocyte distribution width (RBC) [Ratio] 12.5 % 11.6-14.6 [facility] Work Phone: [phone] MCH (RBC) [Entitic mass] 34.5 pg 27.0-32.0 [facility] Work Phone: MCHC Auto (RBC) [Mass/Vol]on 03-03-2022 MCHC (RBC) [Mass/Vol] 35.5 g/dL 32-36 [facility] Work Phone: Platelets bldon 03-03-2022 Platelets (Bld) [#/Vol] 262 10*3/uL 150-450 [facility] Work Phone: [phone] Review by pathologiston 02-05 Pathologist review Steve (Unsp spec) [Interp] August [facility] Work Phone: Absolute lymphocyte counton 01-07-2022 Lymphocytes Auto (Unsp spec) [#/Vol] 2.25 10*3/uL 0.83-4.51 [facility] Work Phone: Basophil percentageon 10-04- 2022 Basophil percentage 2.8 mg/dL 2.5-4.9 [facility] Work Phone: Basophils/100 WBC (Bld) 1.0 % 0-1 [facility] Work Phone: Chloride [Moles/Vol] 115 mmol/L 98-107 [facility]: Eosinophils/100 WBC (Bld) 3.5 % 0-5 [facility] Work Phone: Glucose [Mass/Vol] 85 mg/dL 74-106 [facility] Work Phone: Neutrophils (Bld) [#/Vol] 2.4 10*3/uL 2.0-7.7 [facility] Work Phone: Neutrophils/100 WBC (Bld) 45.7 % 47-70 [facility] Work Phone: Potassium [Moles/Vol] 3.8 mmol/L 3.5-5.1 [facility] Work [facility]: Sodium [Moles/Vol] 143 mmol/L 136-145 [facility] Work Phone: WBC (Bld) [#/Vol] 5.2 10*3/uL 4.4-11.0 [facility] Work Phone: Blood erythrocytes count (nu mber/volume)on 01-07-2022 RBC (Bld) [#/Vol] 4.19 10*6/uL 4.6-6.2 [facility] Work Phone: Blood hemoglobin measurement (mass/volume)on 01-07-2022 Hemoglobin (Bld) [Mass/Vol] 14.8 g/dL 13.0-16.5 [facility] Work Phone: Blood lymphocytes/100 leukoc yteson 01-07-2022 Lymphocytes/100 WBC (Bld) 43.4 % 19-41 [facility] Work Phone: Blood monocytes/100 leukocyt eson 01-07-2022 Monocytes/100 WBC (Bld) 6.2 % 0-10 [facility] Work Phone: [phone] Blood platelet mean volumeon 01-07-2022 Platelet mean volume (Bld) [Entitic vol] 11.5 fL 6.2-12.0 [facility] Work Phone: [phone] Determination of erythrocyte mean corpuscular volume (MCV)on 01-07-2022 MCV (RBC) [Entitic vol] 99.0 fL 80-94 [facility] Work Phone: Hematocrit Auto (Bld) [Volum e fraction]on 01-07-2022 Hematocrit (Bld) [Volume fraction] 41.5 % 40-54 [facility] Work Phone: Laboratory - Chemistry and C hemistry - challengeon 01-07-2022 CO2 [Moles/Vol] 24.0 mmol/L 21.0-32.0 [facility] Work Phone: [phone] Magnesium [Mass/Vol] 2.2 mg/dL 1.6-2.6 [facility] Work Phone: Urea nitrogen/Creatinine [Mass ratio] 7.4 mg/mg 10-20 [facility] Work Phone: [phone] Laboratory - Hematology and Cell countson 01-07-2022 Erythrocyte distribution width (RBC) [Entitic vol] 44.6 fL 35.1-43.9 [facility] Work Phone: [phone] Erythrocyte distribution width (RBC) [Ratio] 12.4 % 11.6-14.6 [facility] Work Phone: Immature granulocytes/100 WBC (Bld) 0.200 % 0.0-0.9 [facility] Work Phone: Comment on above: IG% - Immature Granu locytes (promyelocytes, myelocytes and metamyelocytes) > 1% indicates that a LEFT SHIFT is Present. MCH (RBC) [Entitic mass] 35.3 pg 27.0-32.0 [facility] Work Phone: Nucleated RBC/100 WBC (Bld) [Ratio] 0 % 0-5 [facility] Work Phone: MCHC Auto (RBC) [Mass/Vol]on 01-07-2022 MCHC (RBC) [Mass/Vol] 35.7 g/dL 32-36 [facility] Work Phone: No Panel Informationon 01-07 Estimated Creatinine Clearance Calc 92.00 ml/min [facility] Work Phone: [phone] Estimated GFR (MDRD) Amer 96 mL/min >60 [facility] Work Phone: [phone] Comment on above: GFR Calc Estimated GFR (MDRD) Non-Af Amer 79 mL/min >60 [facility] Work Phone: Comment on above: Non- GFR Calc Platelets bldon 01-07-2022 Platelets (Bld) [#/Vol] 182 10*3/uL 150-450 [facility] Work Phone: [phone] Serum or plasma calcium zo urement (mass/volume)on 01-07-2022 Calcium [Mass/Vol] 8.0 mg/dL 8.5-10.1 [facility] Work Phone: Serum or plasma creatinine m easurement (mass/volume)on 01-07-2022 Creatinine [Mass/Vol] 1.08 mg/dL 0.70-1.30 [facility] Work Phone: Comment on above: The validity of the calculated GFR & GFRAA in patients over 70 years has not been determined. Clinical correlation is essential. Serum or plasma urea nitroge n measurement (mass/volume)on 01-07-2022 Urea nitrogen [Mass/Vol] 8 mg/dL 7-18 [facility] Work Phone: [phone] Thin prep Papanicolaou smear with manual screeningon 01-07-2022 Thin prep Papanicolaou smear with manual screening 4 5-15 [facility] Work Phone: Absolute lymphocyte counton 01-06-2022 Lymphocytes Auto (Unsp spec) [#/Vol] 2.14 10*3/uL 0.83-4.51 [facility] Work Phone: Basophil percentageon 2021 Amylase [Catalytic activity/Vol] 34 U/L 25-115 [facility] Work Phone: Basophils/100 WBC (Bld) 0.8 % 0-1 [facility] Work Phone: Bilirubin [Mass/Vol] 0.30 mg/dL 0.20-1.00 [facility] Work Phone: Comment on above: For patients on eltr ombopag therapy, use of Dimension [place] TBIL is not recommended. Chloride [Moles/Vol] 112 mmol/L 98-107 [facility] Work Phone: Eosinophils/100 WBC (Bld) 2.1 % 0-5 [facility] Work Phone: Glucose [Mass/Vol] 100 mg/dL 74-106 [facility] Work Phone: Comment on above: Fasting Glucose resu lt from 100 to 125 mg/dL suggests IMPAIRED HOMEOSTASIS per A.D.A. criteria. Neutrophils (Bld) [#/Vol] 3.5 10*3/uL 2.0-7.7 [facility] Work Phone: Neutrophils/100 WBC (Bld) 56.1 % 47-70 [facility] Work Phone: Potassium [Moles/Vol] 3.7 mmol/L 3.5-5.1 [facility] Work Phone: Comment on above: Slight Hemolysis, Re sult may be falsely increased. Protein [Mass/Vol] 7.7 g/dL 6.4-8.2 [facility] Work Phone: Sodium [Moles/Vol] 143 mmol/L 136-145 [facility] Work Phone: WBC (Bld) [#/Vol] 6.2 10*3/uL 4.4-11.0 [facility] Work Phone: Blood erythrocytes count (nu mber/volume)on 01-06-2022 RBC (Bld) [#/Vol] 4.59 10*6/uL 4.6-6.2 [facility] Work Phone: Blood hemoglobin measurement (mass/volume)on 01-06-2022 Hemoglobin (Bld) [Mass/Vol] 15.8 g/dL 13.0-16.5 [facility] Work Phone: Blood lymphocytes/100 leukoc yteson 01-06-2022 Lymphocytes/100 WBC (Bld) 34.6 % 19-41 [facility] Work Phone: Blood monocytes/100 leukocyt eson 01-06-2022 Monocytes/100 WBC (Bld) 6.1 % 0-10 [facility] Work Phone: Blood platelet mean volumeon 01-06-2022 Platelet mean volume (Bld) [Entitic vol] 11.8 fL 6.2-12.0 [facility] Work Phone: Determination of erythrocyte mean corpuscular volume (MCV)on 01-06-2022 MCV (RBC) [Entitic vol] 97.8 fL 80-94 [facility] Work Phone: Direct bilirubinon 2 Bilirubin.direct [Mass/Vol] 0.16 mg/dL 0.00-0.30 [facility] Work Phone: Erythrocyte sedimentation ra evette 01-06-2022 ESR (Bld) [Velocity] 11 mm/h 0-20 [facility] Work Phone: Hematocrit Auto (Bld) [Volum e fraction]on 01-06-2022 Hematocrit (Bld) [Volume fraction] 44.9 % 40-54 [facility] Work Phone: INR in Blood by Coagulation assayon 01-06-2022 INR Coag (Bld) [Relative time] 1.1 {INR} [facility] Work Phone: Laboratory - Chemistry and C hemistry - challengeon 01-06-2022 Lipase [Catalytic activity/Vol] 193 U/L 73-393 [facility] Work Phone: [phone] ALP [Catalytic activity/Vol] 58 U/L 45-117 [facility] Work Phone: [phone] ALT [Catalytic activity/Vol] 60 U/L 16-61 [facility] Work Phone: [phone] CO2 [Moles/Vol] 25.0 mmol/L 21.0-32.0 [facility] Work Phone: [phone] Globulin (S) [Mass/Vol] 3.8 g/dL 2.2-4.2 [facility] Work Phone: [phone] Urea nitrogen/Creatinine [Mass ratio] 7.5 mg/mg 10-20 [facility] Work Phone: [phone] Laboratory - Coagulationon 1 aPTT Coag (Bld) [Time] 30.4 s 24.1-36.2 [facility] Work Phone: [phone] PT Coag (PPP) [Time] 13.5 s 11.7-14.9 [facility] Work Phone: [phone] Laboratory - Hematology and Cell countson 01-06-2022 Erythrocyte distribution width (RBC) [Entitic vol] 43.8 fL 35.1-43.9 [facility] Work Phone: [phone] Erythrocyte distribution width (RBC) [Ratio] 12.2 % 11.6-14.6 [facility] Work Phone: [phone] Immature granulocytes/100 WBC (Bld) 0.300 % 0.0-0.9 [facility] Work Phone: [phone] Comment on above: IG% - Immature Granu locytes (promyelocytes, myelocytes and metamyelocytes) > 1% indicates that a LEFT SHIFT is Present. MCH (RBC) [Entitic mass] 34.4 pg 27.0-32.0 [facility] Work Phone: Nucleated RBC/100 WBC (Bld) [Ratio] 0 % 0-5 [facility] Work Phone: [phone] MCHC Auto (RBC) [Mass/Vol]on 01-06-2022 MCHC (RBC) [Mass/Vol] 35.2 g/dL 32-36 [facility] Work Phone: No Panel Informationon 01-06 Estimated Creatinine Clearance Calc 82.80 ml/min [facility] Work Phone: [phone] Estimated GFR (MDRD) Amer 85 mL/min >60 [facility] Work Phone: Comment on above: GFR Calc Estimated GFR (MDRD) Non-Af Amer 70 mL/min >60 [facility] Work Phone: Comment on above: Non- GFR Calc Platelets bldon 01-06-2022 Platelets (Bld) [#/Vol] 219 10*3/uL 150-450 [facility] Work Phone: Serum or plasma C reactive p rotein measurement (mass/volume)on 01-06-2022 CRP [Mass/Vol] mg/L 0.0-3.0 [facility] Work Phone: Comment on above: C-Reactive Protein ( CRP) provides useful information for thediagnosis, therapy and monitoring of inflammatory processesand associated diseases. For the evaluation of Relative Riskfor Cardiovascular Disease, a High Sensitivity CRP (HSCRP)should be ordered. Serum or plasma albumin zo urement (mass/volume)on 01-06-2022 Albumin [Mass/Vol] 3.9 g/dL 3.2-5.0 [facility] Work Phone: Serum or plasma calcium zo urement (mass/volume)on 01-06-2022 Calcium [Mass/Vol] 8.9 mg/dL 8.5-10.1 [facility] Work Phone: Serum or plasma creatinine m easurement (mass/volume)on 01-06-2022 Creatinine [Mass/Vol] 1.20 mg/dL 0.70-1.30 [facility] Work Phone: Comment on above: The validity of the calculated GFR & GFRAA in patients over 70 years has not been determined. Clinical correlation is essential. Serum or plasma urea nitroge n measurement (mass/volume)on 01-06-2022 Urea nitrogen [Mass/Vol] 9 mg/dL 7-18 [facility] Work Phone: Thin prep Papanicolaou smear with manual screeningon 01-06-2022 Thin prep Papanicolaou smear with manual screening 280 U/L 87-241 [facility] Work Phone: [phone] Thin prep Papanicolaou smear with manual screening 28 U/L 15-37 [facility] Work Phone: Comment on above: Slight Hemolysis, Re sult may be falsely increased. Thin prep Papanicolaou smear with manual screening 6 5-15 [facility] Work Phone: Absolute lymphocyte counton 01-02-2022 Lymphocytes Auto (Unsp spec) [#/Vol] 2.63 10*3/uL 0.83-4.51 [facility] Work Phone: Basophil percentageon 2021 Basophils/100 WBC (Bld) 0.8 % 0-1 [facility] Work Phone: Eosinophils/100 WBC (Bld) 2.5 % 0-5 [facility] Work Phone: Neutrophils (Bld) [#/Vol] 3.2 10*3/uL 2.0-7.7 [facility] Work Phone: Neutrophils/100 WBC (Bld) 49.5 % 47-70 [facility] Work Phone: WBC (Bld) [#/Vol] 6.5 10*3/uL 4.4-11.0 [facility] Work Phone: Blood erythrocytes count (nu mber/volume)on 01-02-2022 RBC (Bld) [#/Vol] 4.47 10*6/uL 4.6-6.2 [facility] Work Phone: Blood hemoglobin measurement (mass/volume)on 01-02-2022 Hemoglobin (Bld) [Mass/Vol] 15.2 g/dL 13.0-16.5 [facility] Work Phone: Blood lymphocytes/100 leukoc yteson 01-02-2022 Lymphocytes/100 WBC (Bld) 40.8 % 19-41 [facility] Work Phone: [phone] Blood monocytes/100 leukocyt eson 01-02-2022 Monocytes/100 WBC (Bld) 5.9 % 0-10 [facility] Work Phone: [phone] Blood platelet mean volumeon 01-02-2022 Platelet mean volume (Bld) [Entitic vol] 13.0 fL 6.2-12.0 [facility] Work Phone: Determination of erythrocyte mean corpuscular volume (MCV)on 01-02-2022 MCV (RBC) [Entitic vol] 98.0 fL 80-94 [facility] Work Phone: [phone] Hematocrit Auto (Bld) [Volum e fraction]on 01-02-2022 Hematocrit (Bld) [Volume fraction] 43.8 % 40-54 [facility] Work Phone: Laboratory - Hematology and Cell countson 01-02-2022 Erythrocyte distribution width (RBC) [Entitic vol] 43.8 fL 35.1-43.9 [facility] Work Phone: [phone] Erythrocyte distribution width (RBC) [Ratio] 12.1 % 11.6-14.6 [facility] Work Phone: [phone] Immature granulocytes/100 WBC (Bld) 0.500 % 0.0-0.9 [facility] Work Phone: [phone] Comment on above: IG% - Immature Granu locytes (promyelocytes, myelocytes and metamyelocytes) > 1% indicates that a LEFT SHIFT is Present. MCH (RBC) [Entitic mass] 34.0 pg 27.0-32.0 [facility] Work Phone: [phone] Nucleated RBC/100 WBC (Bld) [Ratio] 0 % 0-5 [facility] Work Phone: [phone] MCHC Auto (RBC) [Mass/Vol]on 01-02-2022 MCHC (RBC) [Mass/Vol] 34.7 g/dL 32-36 [facility] Work Phone: Platelets bldon 01-02-2022 Platelets (Bld) [#/Vol] 172 10*3/uL 150-450 [facility] Work Phone: Basophil percentageon 2021 Chloride [Moles/Vol] 110 mmol/L 98-107 [facility] Work Phone: Glucose [Mass/Vol] 83 mg/dL 74-106 [facility] Work Phone: [phone] Potassium [Moles/Vol] 3.6 mmol/L 3.5-5.1 [facility] Work Phone: Comment on above: Slight Hemolysis, Re sult may be falsely increased. Sodium [Moles/Vol] 141 mmol/L 136-145 [facility] Work Phone: Laboratory - Chemistry and C hemistry - challengeon 01-01-2022 CO2 [Moles/Vol] 26.0 mmol/L 21.0-32.0 [facility] Work Phone: Urea nitrogen/Creatinine [Mass ratio] 13.6 mg/mg 10-20 [facility] Work Phone: No Panel Informationon 01-01 Estimated Creatinine Clearance Calc 84.20 ml/min [facility] Work Phone: Estimated GFR (MDRD) Amer 87 mL/min >60 [facility] Work Phone: [phone] Comment on above: GFR Calc Estimated GFR (MDRD) Non-Af Amer 72 mL/min >60 [facility] Work Phone: Comment on above: Non- GFR Calc Serum or plasma calcium zo urement (mass/volume)on 01-01-2022 Calcium [Mass/Vol] 8.1 mg/dL 8.5-10.1 [facility] Work Phone: Serum or plasma creatinine m easurement (mass/volume)on 01-01-2022 Creatinine [Mass/Vol] 1.18 mg/dL 0.70-1.30 [facility] Work Phone: Comment on above: The validity of the calculated GFR & GFRAA in patients over 70 years has not been determined. Clinical correlation is essential. Serum or plasma urea nitroge n measurement (mass/volume)on 01-01-2022 Urea nitrogen [Mass/Vol] 16 mg/dL 7-18 [facility] Work Phone: Thin prep Papanicolaou smear with manual screeningon 01-01-2022 Thin prep Papanicolaou smear with manual screening 5 5-15 [facility] Work Phone: Absolute lymphocyte counton 12-31-2021 Lymphocytes Auto (Unsp spec) [#/Vol] 2.86 10*3/uL 0.83-4.51 [facility] Work Phone: Basophil percentageon 2021 Basophils/100 WBC (Bld) 0.7 % 0-1 [facility] Work Phone: Bilirubin [Mass/Vol] 0.60 mg/dL 0.20-1.00 [facility] Work Phone: Comment on above: For patients on eltr ombopag therapy, use of Dimension [place] TBIL is not recommended. Chloride [Moles/Vol] 106 mmol/L 98-107 [facility] Work Phone: Eosinophils/100 WBC (Bld) 1.5 % 0-5 [facility] Work Phone: Glucose [Mass/Vol] 85 mg/dL 74-106 [facility] Work Phone: Neutrophils (Bld) [#/Vol] 5.4 10*3/uL 2.0-7.7 [facility] Work Phone: Neutrophils/100 WBC (Bld) 59.2 % 47-70 [facility] Work Phone: Potassium [Moles/Vol] 3.6 mmol/L 3.5-5.1 [facility] Work Phone: Comment on above: Moderate Hemolysis, Result may be falsely increased. Protein [Mass/Vol] 7.6 g/dL 6.4-8.2 [facility] Work Phone: [phone] Sodium [Moles/Vol] 140 mmol/L 136-145 [facility] Work Phone: [phone] WBC (Bld) [#/Vol] 9.1 10*3/uL 4.4-11.0 [facility] Work Phone: [phone] Blood erythrocytes count (nu mber/volume)on 12-31-2021 RBC (Bld) [#/Vol] 4.91 10*6/uL 4.6-6.2 [facility] Work Phone: [phone] Blood hemoglobin measurement (mass/volume)on 12-31-2021 Hemoglobin (Bld) [Mass/Vol] 17.0 g/dL 13.0-16.5 [facility] Work Phone: [phone] Blood lymphocytes/100 leukoc yteson 12-31-2021 Lymphocytes/100 WBC (Bld) 31.3 % 19-41 [facility] Work Phone: [phone] Blood monocytes/100 leukocyt eson 12-31-2021 Monocytes/100 WBC (Bld) 6.9 % 0-10 [facility] Work Phone: [phone] Blood platelet mean volumeon 12-31-2021 Platelet mean volume (Bld) [Entitic vol] 12.6 fL 6.2-12.0 [facility] Work Phone: [phone] Determination of erythrocyte mean corpuscular volume (MCV)on 12-31-2021 MCV (RBC) [Entitic vol] 98.2 fL 80-94 [facility] Work Phone: [phone] Direct bilirubinon Bilirubin.direct [Mass/Vol] 0.09 mg/dL 0.00-0.30 [facility] Work Phone: [phone] Hematocrit Auto (Bld) [Volum e fraction]on 12-31-2021 Hematocrit (Bld) [Volume fraction] 48.2 % 40-54 [facility] Work Phone: INR in Blood by Coagulation assayon 12-31-2021 INR Coag (Bld) [Relative time] 1.0 {INR} [facility] Work Phone: [phone] Laboratory - Chemistry and C hemistry - challengeon 12-31-2021 ALP [Catalytic activity/Vol] 56 U/L 45-117 [facility] Work Phone: [phone] ALT [Catalytic activity/Vol] 66 U/L 16-61 [facility] Work Phone: [phone] CO2 [Moles/Vol] 26.0 mmol/L 21.0-32.0 [facility] Work Phone: Globulin (S) [Mass/Vol] 3.3 g/dL 2.2-4.2 [facility] Work Phone: [phone] Lipase [Catalytic activity/Vol] 134 U/L 73-393 [facility] Work Phone: [phone] Urea nitrogen/Creatinine [Mass ratio] 17.2 mg/mg 10-20 [facility] Work Phone: Laboratory - Coagulationon 0 12-31-2021 aPTT Coag (Bld) [Time] 31.5 s 24.1-36.2 [facility] Work Phone: [phone] PT Coag (PPP) [Time] 12.7 s 11.7-14.9 [facility] Work Phone: [phone] Laboratory - Hematology and Cell countson 12-31-2021 Erythrocyte distribution width (RBC) [Entitic vol] 44.1 fL 35.1-43.9 [facility] Work Phone: [phone] Erythrocyte distribution width (RBC) [Ratio] 12.1 % 11.6-14.6 [facility] Work Phone: [phone] Immature granulocytes/100 WBC (Bld) 0.400 % 0.0-0.9 [facility] Work Phone: Comment on above: IG% - Immature Granu locytes (promyelocytes, myelocytes and metamyelocytes) > 1% indicates that a LEFT SHIFT is Present. MCH (RBC) [Entitic mass] 34.6 pg 27.0-32.0 [facility] Work Phone: Nucleated RBC/100 WBC (Bld) [Ratio] 0 % 0-5 [facility] Work Phone: [phone] MCHC Auto (RBC) [Mass/Vol]on 12-31-2021 MCHC (RBC) [Mass/Vol] 35.3 g/dL 32-36 [facility] Work Phone: No Panel Informationon 12-31 Estimated Creatinine Clearance Calc 77.63 ml/min [facility] Work Phone: Estimated GFR (MDRD) Amer 79 mL/min >60 [facility] Work Phone: Comment on above: GFR Calc Estimated GFR (MDRD) Non-Af Amer 65 mL/min >60 [facility] Work Phone: Comment on above: Non- GFR Calc Platelets bldon 12-31-2021 Platelets (Bld) [#/Vol] 177 10*3/uL 150-450 [facility] Work Phone: Serum or plasma albumin zo urement (mass/volume)on 12-31-2021 Albumin [Mass/Vol] 4.3 g/dL 3.2-5.0 [facility] Work Phone: Serum or plasma calcium zo urement (mass/volume)on 12-31-2021 Calcium [Mass/Vol] 9.6 mg/dL 8.5-10.1 [facility] Work Phone: [phone] Serum or plasma creatinine m easurement (mass/volume)on 12-31-2021 Creatinine [Mass/Vol] 1.28 mg/dL 0.70-1.30 [facility] Work Phone: Comment on above: The validity of the calculated GFR & GFRAA in patients over 70 years has not been determined. Clinical correlation is essential. Serum or plasma urea nitroge n measurement (mass/volume)on 12-31-2021 Urea nitrogen [Mass/Vol] 22 mg/dL 7-18 [facility] Work Phone: Thin prep Papanicolaou smear with manual screeningon 12-31-2021 Thin prep Papanicolaou smear with manual screening 33 U/L 15-37 [facility] Work Phone: Comment on above: Moderate Hemolysis, Result may be falsely increased. Thin prep Papanicolaou smear with manual screening 8 5-15 [facility] Work Phone: Absolute lymphocyte counton 12-02-2021 Lymphocytes Auto (Unsp spec) [#/Vol] 3.67 10*3/uL 0.83-4.51 [facility] Work Phone: Basophil percentageon 2021 Basophils/100 WBC (Bld) 0.9 % 0-1 [facility] Work Phone: Chloride [Moles/Vol] 103 mmol/L 98-107 [facility] Work Phone: Eosinophils/100 WBC (Bld) 1.2 % 0-5 [facility] Work Phone: Glucose [Mass/Vol] 89 mg/dL 74-106 [facility] Work Phone: Neutrophils (Bld) [#/Vol] 6.1 10*3/uL 2.0-7.7 [facility] Work Phone: Neutrophils/100 WBC (Bld) 57.0 % 47-70 [facility] Work Phone: Potassium [Moles/Vol] 3.8 mmol/L 3.5-5.1 [facility] Work Phone: Sodium [Moles/Vol] 138 mmol/L 136-145 [facility] Work Phone: WBC (Bld) [#/Vol] 10.6 10*3/uL 4.4-11.0 [facility] Work Phone: Blood erythrocytes count (nu mber/volume)on 12-02-2021 RBC (Bld) [#/Vol] 5.85 10*6/uL 4.6-6.2 [facility] Work Phone: Blood hemoglobin measurement (mass/volume)on 12-02-2021 Hemoglobin (Bld) [Mass/Vol] 20.8 g/dL 13.0-16.5 [facility] Work Phone: Comment on above: CRITICAL VALUE VERIF IED. CALLED TO MAKEDA SUNSHINE12/02/21 1045 Fariba Sweeney.RESULTS READ BACK BY SAME . Blood lymphocytes/100 leukoc yteson 12-02-2021 Lymphocytes/100 WBC (Bld) 34.5 % 19-41 [facility] Work Phone: [phone] Blood monocytes/100 leukocyt eson 12-02-2021 Monocytes/100 WBC (Bld) 6.1 % 0-10 [facility] Work Phone: Blood platelet mean volumeon 12-02-2021 Platelet mean volume (Bld) [Entitic vol] 11.6 fL 6.2-12.0 [facility] Work Phone: Determination of erythrocyte mean corpuscular volume (MCV)on 12-02-2021 MCV (RBC) [Entitic vol] 97.6 fL 80-94 [facility] Work Phone: Hematocrit Auto (Bld) [Volum e fraction]on 12-02-2021 Hematocrit (Bld) [Volume fraction] 57.1 % 40-54 [facility] Work Phone: [phone] INR in Blood by Coagulation assayon 12-02-2021 INR Coag (Bld) [Relative time] 1.0 {INR} [facility] Work Phone: Laboratory - Chemistry and C hemistry - challengeon 12-02-2021 CO2 [Moles/Vol] 28.0 mmol/L 21.0-32.0 [facility] Work Phone: Urea nitrogen/Creatinine [Mass ratio] 9.4 mg/mg 10-20 [facility] Work Phone: [phone] Laboratory - Coagulationon 0 12-02-2021 aPTT Coag (Bld) [Time] 29.3 s 24.1-36.2 [facility] Work Phone: [phone] Coag (PPP) [Time] 13.4 s 11.7-14.9 [facility] Work Phone: [phone] Laboratory - Hematology and Cell countson 12-02-2021 Erythrocyte distribution width (RBC) [Entitic vol] 43.5 fL 35.1-43.9 [facility] Work Phone: [phone] Erythrocyte distribution width (RBC) [Ratio] 11.9 % 11.6-14.6 [facility] Work Phone: [phone] Immature granulocytes/100 WBC (Bld) 0.300 % 0.0-0.9 [facility] Work Phone: [phone] Comment on above: IG% - Immature Granu locytes (promyelocytes, myelocytes and metamyelocytes) > 1% indicates that a LEFT SHIFT is Present. MCH (RBC) [Entitic mass] 35.6 pg 27.0-32.0 [facility] Work Phone: [phone] Nucleated RBC/100 WBC (Bld) [Ratio] 0 % 0-5 [facility] Work Phone: [phone] MCHC Auto (RBC) [Mass/Vol]on 12-02-2021 MCHC (RBC) [Mass/Vol] 36.4 g/dL 32-36 [facility] Work Phone: [phone] No Panel Informationon 12-02 Troponin I High Sensitivity 5 pg/mL 3.0-78.0 [facility] Work Phone: [phone] Comment on above: Please Note: New Dona t Units and Gender Specific Reference Ranges. For more information see Policy Stat Procedure [place] High Sensitivity Troponin (TNIH) and attachments. Estimated Creatinine Clearance Calc 60.14 ml/min [facility] Work Phone: [phone] Estimated GFR (MDRD) Amer 61 mL/min >60 [facility] Work Phone: [phone] Comment on above: GFR Calc Estimated GFR (MDRD) Non-Af Amer 50 mL/min >60 [facility] Work Phone: Comment on above: Non- GFR Calc Platelets bldon 12-02-2021 Platelets (Bld) [#/Vol] 259 10*3/uL 150-450 [facility] Work Phone: Review by pathologiston 11-05 Pathologist review Steve (Unsp spec) [Interp] Lianne thakkar [facility] Work Phone: [phone] Pathologist review Steve (Unsp spec) [Interp] Reviewed [facility] Work Phone: Comment on above: Previous reported re sult: Lianne thakkar Edited by: RGOOD on 12/03/21:1321Polycythemia MacrocytosisClinical correlation necessary.Zenon Alejo M.D. 12/03/21This case was reviewed with Dr. Stiles who concurs with the above diagnosis. AMENDED REPORT 12/03/21 1321 PATH REV previously reported as: Lianne thakkar Serum or plasma calcium zo urement (mass/volume)on 12-02-2021 Calcium [Mass/Vol] 10.6 mg/dL 8.5-10.1 [facility] Work Phone: Serum or plasma creatinine m easurement (mass/volume)on 12-02-2021 Creatinine [Mass/Vol] 1.60 mg/dL 0.70-1.30 [facility] Work Phone: Comment on above: The validity of the calculated GFR & GFRAA in patients over 70 years has not been determined. Clinical correlation is essential. Serum or plasma urea nitroge n measurement (mass/volume)on 12-02-2021 Urea nitrogen [Mass/Vol] 15 mg/dL -18 [facility] Work Phone: Thin prep Papanicolaou smear with manual screeningon 12-02-2021 Thin prep Papanicolaou smear with manual screening 7 - [facility] Work Phone: [phone] BMPon 03-19-2021 Anion gap [Moles/Vol] 10 mmol/L Normal 5-16 [facility] Comment on above: Order Comment: Eulalio s: M Performed By: #### L 500.53469, L500.14723, L500.29969, L500.40487 #### [facility] [place] [address] Calcium [Mass/Vol] 10.3 mg/dL Normal 8.5-10.5 [facility] Comment on above: Order Comment: Campu s: M Result Comment: NOTE NEW NORMAL RANGE DUE TO REAGENT CHANGE Performed By: #### L 500.11829, L500.43742, L500.01432, L500.37442 #### [facility] [address] [place] [address] Chloride [Moles/Vol] 109 mmol/L High 98-107 [facility] Comment on above: Order Comment: Campu s: M Performed By: #### L 500.95173, L500.38293, L500.51279, L500.96681 #### [facility] [address] [place] [address] CO2 [Moles/Vol] 23.0 mmol/L Normal 21-32 [facility] Comment on above: Order Comment: Campu s: M Performed By: #### L 500.27431, L500.15233, L500.07369, L500.77250 #### [facility] [place] [address] Creatinine [Mass/Vol] 0.85 mg/dL Normal 0.5-1.4 [facility] Comment on above: Order Comment: Campu s: M Result Comment: NOTE NEW NORMAL RANGE DUE TO REAGENT CHANGE Patients receiving either N-Acetylcysteine (NAC) or Metamizole prior to venipuncture, may have falsely depressed results. Performed By: #### L 500.99812, L500.40582, L500.82135, L500.37609 #### [facility] [place] [address] Glucose [Mass/Vol] 94 mg/dL Normal 70-100 [facility] Comment on above: Order Comment: Campu s: M Result Comment: 70-1 00- Normal Fasting; 100-125 Impaired Fasting; greater than 126 on more than one result- Diabetes. ADA guidelines. Results may be falsely elevated after the administration of Sulfapyridine. Results may be falsely depressed after the administration of Sulfasalazine. Performed By: #### L 500.17142, L500.82629, L500.40808, L500.66903 #### [facility] [address] [place] [address] Potassium [Moles/Vol] 4.1 mmol/L Normal 3.5-5.1 [facility] Comment on above: Order Comment: Campu s: M Result Comment: Slig ht Hemolysis, Result may be affected. Performed By: #### L 500.17300, L500.62769, L500.54553, L500.41721 #### [facility] [address] [place] [address] Sodium [Moles/Vol] 142 mmol/L Normal 136-145 [facility] Comment on above: Order Comment: Campu s: M Performed By: #### L 500.10022, L500.78996, L500.28946, L500.41847 #### [facility] [address] [place] [address] Urea nitrogen [Mass/Vol] 12 mg/dL Normal 7-26 [facility] Comment on above: Order Comment: Campu s: M Performed By: #### L 500.17005, L500.09062, L500.28218, L500.86291 #### [facility] [address] [place] [address] Urea nitrogen/Creatinine [Mass ratio] 14 mg/mg Low 15-24 [facility] Comment on above: Order Comment: Campu s: M Performed By: #### L 500.39971, L500.18328, L500.22139, L500.78837 #### [facility] [address] [place] [address] CBC W/DIFFon 03-19-2021 BASO ABS 0.10 K/CU MM Normal 0-0.2 [facility] Comment on above: Order Comment: Campu s: M Performed By: #### L 200.28373 ####[facility] [id number] [place], [place] [address]Ux# [phone] Basophils/100 WBC (Bld) 1.1 % Normal 0-2 M [facility] Comment on above: Order Comment: Campu s: M Performed By: #### L 200.31538 ####[facility] [id number] [place], [place] [address]Ph# [phone] EOS ABS 0.10 K/CU MM Normal 0-0.5 [facility] Comment on above: Order Comment: Campu s: M Performed By: #### L 200.38143 ####[facility] [id number] [place], [place] [address]Ph# [phone] Eosinophils/100 WBC (Bld) 1.2 % Normal 0-5 [facility] Comment on above: Order Comment: Campu s: M Performed By: #### L 200.83961 ####[address] [address]Kf# [phone] Erythrocyte distribution width (RBC) [Ratio] 12.4 % Normal 11-14.5 [facility] Comment on above: Order Comment: Campu s: M Performed By: #### L 200.85415 ####[facility] [id number] [place], [place] [address]Ph# [phone] Hematocrit (Bld) [Volume fraction] 48.9 % Normal 41.0-53.0 [facility] Comment on above: Order Comment: Campu s: M Performed By: #### L 200.55284 ####[facility] [id number] [place], [place] [address]Ph# [phone] Hemoglobin (Bld) [Mass/Vol] 17.6 g/dL High 13.5-17.5 [facility] Comment on above: Order Comment: Campu s: M Performed By: #### L 200.84383 ####[facility] [id number] [place], [place] [address]Gr# [phone] IMMATR GRAN ABS 0.10 K/CU MM Normal Less than 2 [facility] Comment on above: Order Comment: Campu s: M Performed By: #### L 200.28778 ####[facility] [id number] [place], [place] [address]Ph# [phone] IMMATURE GRAN % 1.0 % Normal Less than 2 [facility] Comment on above: Order Comment: Campu s: M Performed By: #### L 200.96830 ####[place] [address]Ph# [phone] LYMPH ABS 3.40 K/CU MM Normal 0.9-4.4 [facility] Comment on above: Order Comment: Campu s: M Performed By: #### L 200.31180 ####[facility] [id number] [place], [place] [address]Ph# [phone] Lymphocytes/100 WBC (Bld) 46.3 % High 20-40 [facility] Comment on above: Order Comment: Campu s: M Performed By: #### L 200.99072 ####[facility] [id number] [place], [place] [address]Ph# [phone] MCHC (RBC) [Mass/Vol] 36.0 g/dL Normal 32.0-36.0 [facility] Comment on above: Order Comment: Campu s: M Performed By: #### L 200.38855 ####[facility] [id number] [place] [address]Jj# [phone] MCV (RBC) [Entitic vol] 97.2 fL Normal 80.0-99.0 [facility] Comment on above: Order Comment: Campu s: M Performed By: #### L 200.24312 ####[facility] [id number] [place], [place] [address]Ob# [phone] MONO ABS 0.50 K/CU MM Normal 0.1-1.1 [facility] Comment on above: Order Comment: Campu s: M Performed By: #### L 200.21177 ####[facility] [id number] [place] [address]Ee# [phone] Monocytes/100 WBC (Bld) 7.3 % Normal 2-10 M [facility] Comment on above: Order Comment: Campu s: M Performed By: #### L 200.01397 ####[place] [address]Ph# [phone] NEUTROPHIL ABS 3.10 K/CU MM Normal 2.0-8.3 [facility] Comment on above: Order Comment: Campu s: M Performed By: #### L 200.23126 ####[facility] [id number] [place] [address]Ue# [phone] Neutrophils/100 WBC (Bld) 43.1 % Low 45-75 [facility] Comment on above: Order Comment: Campu s: M Performed By: #### L 200.36176 ####[facility] [id number] [place] [address]Ct# [phone] Nucleated RBC/100 WBC (Bld) [Ratio] 0.0 % Normal Less than 1 [facility] Comment on above: Order Comment: Campu s: M Performed By: #### L 200.40550 ####[facility] [id number] [place] [address]Uk# [phone] Platelet mean volume (Bld) [Entitic vol] 12.1 fL Normal 9.4-12.4 [facility] Comment on above: Order Comment: Campu s: M Performed By: #### L 200.23165 ####[facility] [id number] [place], [place] [address]Ph# [phone] PLT 171 K/CU MM Normal 150-450 [facility] Comment on above: Order Comment: Campu s: M Performed By: #### L 200.51194 ####[facility] [id number] [place], [place] [address]Fb# [phone] RBC 5.03 M/CU MM Normal 4.50-6.00 [facility] Comment on above: Order Comment: Campu s: M Performed By: #### L 200.83471 ####[facility] [id number] [place], [place] [address]Pk# [phone] WBC 7.2 K/CUMM Normal 4.5-11.0 [facility] Comment on above: Order Comment: Campu s: M Performed By: #### L 200.33507 ####[facility] [id number] [place], [place] [address]Oe# [phone] CT [facility] ABD/PEL W IV CONTRAST ONLY [...] soft tissues:Unremarkable. The abdominal wall is intact [employer] [place] [employer] film:No additional abnormality IMPRESSION: No acute abnormality Hepatic steatosis This report was electronically signed by Mandeep Colmenares MD 03/19/2021 1:08 PM Reported By: MANDEEP COLMENARES M.D. Signed By: MANDEEP COLMENARES M.D. [facility] 03-19-2021 EMERGENCY PHYSICIAN REPORT This is a preliminary report only, as the practitioner review and authentication has not occurred. [facility] ER PHYSICIAN ASSESSMENT RECORDS : FlexChartData Event Time: 03/19/2021 11:15 Status: Signed [facility] Andrew Mclean [[id number]] Attending Physician 41 / M / 1980 Chart (V2b) Chart created at 03/19/2021 11:08 by Bryan Schuster Chart closed at 03/19/2021 13:58 Entry in Emergency Department at 03/19/2021 07:41, departure at 03/19/2021 14:06 Patient Name: Andrew Mclean Record Number: [id number] Date: 03/19/2021 11:08 Entered Department at: 03/19/2021 [...] not have any symptoms throughout the day [facility] PATIENT NAME: ANDREW MCLEAN [facility] Wagner MEDICAL REC #: [id number] [place] [address] EMERGENCY DEPARTMENT REPORT EMERGENCY DEPARTMENT PHYSICIAN yesterday, [...] 4.1 BUN/CREA: 14; CALCIUM TOTAL: 10.3 Mg/Dl [facility] MEDICAL REC #: [id number] [place] [address] EMERGENCY DEPARTMENT REPORT EMERGENCY DEPARTMENT PHYSICIAN CBC [...] SGOT (AST): 100 U/L; SGPT (ALT): 259 [facility] PATIENT NAME: ANDREW MCLEAN [facility] Dr[facility] Wagner MEDICAL REC #: [id number] [place] [address] EMERGENCY DEPARTMENT REPORT EMERGENCY DEPARTMENT PHYSICIAN U/L; TP: 7.5 Gm/Dl Imaging Study Obtained: CT ABD/PEL W IV CONTRAST ONLY Imaging Study Obtained: CT ABD/PEL W IV (more content not included)... [facility]-19-[facility]21 IF AMER Greater than 60 Normal [facility] Comment on above: Order Comment: Eulalio ying: Gregory Performed By: #### L 500.42347, L500.95036, L500.23436, L500.45906 #### [facility] [address] [place] [address] IF non-AFR AMER Greater than 60 Normal [facility] Comment on above: Order Comment: Campu s: M Performed By: #### L 500.73228, L500.78312, L500.91642, L500.19564 #### [facility] [address] [place], [place] [address] LIPASEon 03-19-2021 Lipase [Catalytic activity/Vol] 36 U/L Normal 12-60 [facility] Comment on above: Order Comment: Campu s: M Result Comment: NOTE NEW NORMAL RANGE DUE TO REAGENT CHANGE Performed By: #### L 500.41709, L500.20542, L500.79672, L500.78382 #### [facility] [address] [place] [address] LIVERon 03-19-2021 Albumin [Mass/Vol] 4.5 g/dL Normal 3.2-5.0 [facility] Comment on above: Order Comment: Campu s: M Performed By: #### L 500.15214, L500.50979, L500.03860, L500.79198 #### [facility] [address] [place] [address] Albumin/Globulin [Mass ratio] 1.5 {ratio} Normal 0.8-2.0 [facility] Comment on above: Order Comment: Campu s: M Performed By: #### L 500.83306, L500.63922, L500.01167, L500.56854 #### [facility] [address] [place] [address] ALK PHOS 64 U/L Normal 45-117 [facility] Comment on above: Order Comment: Campu s: M Performed By: #### L 500.50853, L500.51042, L500.67222, L500.79939 #### [facility] [address] [place] [address] ALT [Catalytic activity/Vol] 259 U/L High 13-61 [facility] Comment on above: Order Comment: Campu s: M Result Comment: RESU LTS MAY BE FALSELY DEPRESSED AFTER THE ADMINISTRATION OF SULFASALAZINE AND/OR SULFAPYRIDINE. Performed By: #### L 500.69976, L500.94869, L500.50320, L500.39302 #### [facility] [address] [place] [address] AST [Catalytic activity/Vol] 100 U/L High 8-34 [facility] Comment on above: Order Comment: Campu s: M Result Comment: RESU LTS MAY BE FALSELY DEPRESSED AFTER THE ADMINISTRATION OF SULFASALAZINE AND/OR SULFAPYRIDINE. Performed By: #### L 500.49890, L500.35788, L500.26136, L500.77795 #### [facility] [address] [place] [address] BILI DIRECT 0.1 MG/DL Normal 0.00-0.36 [facility] Comment on above: Order Comment: Campu s: M Result Comment: NOTE NEW NORMAL RANGE DUE TO REAGENT CHANGE Performed By: #### L 500.18274, L500.21649, L500.74271, L500.65724 #### [facility] [address] [place] [address] BILI TOTAL 0.30 MG/DL Normal 0.2-1.0 [facility] Comment on above: Order Comment: Campu s: M Performed By: #### L 500.95074, L500.28574, L500.98885, L500.03144 #### [facility] [address] [place], [place] [id number] Globulin (S) [Mass/Vol] 3.0 g/dL Normal 2.2-4.2 [facility] Comment on above: Order Comment: Campu s: M Performed By: #### L 500.49906, L500.62410, L500.97650, L500.58499 #### [facility] [address] [place] [address] Protein [Mass/Vol] 7.5 g/dL Normal 6.0-8.5 [facility] Comment on above: Order Comment: Campu s: M Performed By: #### L 500.62633, L500.60294, L500.15311, L500.39500 #### [facility] [address] [place] [address] UA COMPLETEon 03-19-2021 Color (U) Yellow Normal [facility] Comment on above: Order Comment: Campu s: M Performed By: #### L 600.87890 ####[facility] [id number] [place] [address]Ef# [phone] Glucose (U) [Mass/Vol] Negative Normal NORMAL [facility] Comment on above: Order Comment: Campu s: M Performed By: #### L 600.00096 ####[facility] [id number] [place] [address]Fy# [phone] UA APPEARANCE Clear Normal CLEAR [facility] Comment on above: Order Comment: Campu s: M Performed By: #### L 600.48020 ####[facility] [id number] [place], [place] [address]Tq# [phone] UA BILIRUBIN Negative Normal NEGATIVE [facility] Comment on above: Order Comment: Campu s: M Performed By: #### L 600.87619 ####[facility] [id number] [place], [place] [address]Zb# [phone] UA BLOOD Negative Normal NEGATIVE [facility] Comment on above: Order Comment: Campu s: M Performed By: #### L 600.85462 ####[facility] [id number] [place], [place] [address]Lv# [phone] UA KETONE 5 Normal NEGATIVE [facility] Comment on above: Order Comment: Campu s: M Performed By: #### L 600.45772 ####[facility] [id number] [place] [address]Iu# [phone] UA LK ESTERASE Negative Normal NEGATIVE [facility] Comment on above: Order Comment: Campu s: M Performed By: #### L 600.28725 ####[facility] [id number] [place] [address]Vo# [phone] UA NITRITE Negative Normal NEGATIVE [facility] Comment on above: Order Comment: Campu s: M Performed By: #### L 600.60354 ####[address] [address]Rr# [phone] UA PH 5.0 Normal 5-6 [facility] Comment on above: Order Comment: Campu s: M Performed By: #### L 600.48290 ####[address] [address]Ly# [phone] UA PROTEIN Negative Normal NEGATIVE [facility] Comment on above: Order Comment: Campu s: M Performed By: #### L 600.75757 ####[address] [address]Ex# [phone] UA SPEC GRAV 1.026 Normal 1.005-1.030 [facility] Comment on above: Order Comment: Campu s: M Performed By: #### L 600.62439 ####[facility] [id number] [place] [address]Qn# [phone] UA UROBILINOGEN Negative Normal NORMAL [facility] Comment on above: Order Comment: Campu s: M Performed By: #### L 600.13088 ####[facility] [id number] [place] [address]Ke# [phone] BMPon 10-29-2020 Anion gap [Moles/Vol] 5 mmol/L Normal 5-16 [facility] Comment on above: Order Comment: Campu s: M Performed By: #### L 500.86714, L500.16243 #### [facility] [address] [place] [id number] Calcium [Mass/Vol] 9.2 mg/dL Normal 8.5-10.5 [facility] Comment on above: Order Comment: Campu s: M Result Comment: NOTE NEW NORMAL RANGE DUE TO REAGENT CHANGE Performed By: #### L 500.13670, L500.03876 #### [facility] [address] [place] [address] Chloride [Moles/Vol] 111 mmol/L High 98-107 [facility] Comment on above: Order Comment: Campu s: M Performed By: #### L 500.74064, L500.34931 #### [facility] [address] [place] [address] CO2 [Moles/Vol] 24.0 mmol/L Normal 21-32 [facility] Comment on above: Order Comment: Campu s: M Performed By: #### L 500.28598, L500.81067 #### [facility] [address] [place] [address] Creatinine [Mass/Vol] 0.91 mg/dL Normal 0.5-1.4 [facility] Comment on above: Order Comment: Campu s: M Result Comment: NOTE NEW NORMAL RANGE DUE TO REAGENT CHANGE Patients receiving either N-Acetylcysteine (NAC) or Metamizole prior to venipuncture, may have falsely depressed results. Performed By: #### L 500.80950, L500.80718 #### [facility] [address] [place], [place] [address] Glucose [Mass/Vol] 131 mg/dL High 70-100 [facility] Comment on above: Order Comment: Campu s: M Result Comment: 70-1 00- Normal Fasting; 100-125 Impaired Fasting; greater than 126 on more than one result- Diabetes. ADA guidelines. Results may be falsely elevated after the administration of Sulfapyridine. Results may be falsely depressed after the administration of Sulfasalazine. Performed By: #### L 500.34122, L500.47538 #### [facility] [place] [address] Potassium [Moles/Vol] 3.8 mmol/L Normal 3.5-5.1 [facility] Comment on above: Order Comment: Campu s: M Result Comment: Slig ht Hemolysis, Result may be affected. Performed By: #### L 500.37910, L500.14319 #### [facility] [address] [place] [address] Sodium [Moles/Vol] 140 mmol/L Normal 136-145 [facility] Comment on above: Order Comment: Campu s: M Performed By: #### L 500.06023, L500.65896 #### [facility] [address] [place] [address] Urea nitrogen [Mass/Vol] 16 mg/dL Normal 7-26 [facility] Comment on above: Order Comment: Campu s: M Performed By: #### L 500.45393, L500.91456 #### [facility] [address] [place], [place] [address] Urea nitrogen/Creatinine [Mass ratio] 18 mg/mg Normal 15-24 [facility] Comment on above: Order Comment: Campu s: M Performed By: #### L 500.84406, L500.67633 #### [facility] [address] [place], [place] [address] CBC W/DIFFon 10-29-2020 BASO ABS 0.10 K/CU MM Normal 0-0.2 [facility] Comment on above: Order Comment: Campu s: M Performed By: #### L 200.09243 ####[facility] [id number] [place] [address]64[address]Ph# [phone] Basophils/100 WBC (Bld) 1.0 % Normal 0-2 [facility] Comment on above: Order Comment: Campu s: M Performed By: #### L 200.59014 ####[facility] [id number] [place] [address]Pf# [phone] EOS ABS 0.20 K/CU MM Normal 0-0.5 [facility] Comment on above: Order Comment: Campu s: M Performed By: #### L 200.94392 ####[facility] [id number] [place], [place] [address]Ph# [phone] Eosinophils/100 WBC (Bld) 2.8 % Normal 0-5 [facility] Comment on above: Order Comment: Campu s: M Performed By: #### L 200.51002 ####[address] [address]Ml# [phone] Erythrocyte distribution width (RBC) [Ratio] 12.1 % Normal 11-14.5 [facility] Comment on above: Order Comment: Campu s: M Performed By: #### L 200.21303 ####[facility] [id number] [place], [place] [address]Ph# [phone] Hematocrit (Bld) [Volume fraction] 47.2 % Normal 41.0-53.0 [facility] Comment on above: Order Comment: Campu s: M Performed By: #### L 200.49221 ####[facility] [id number] [place], [place] [address]Ph# [phone] Hemoglobin (Bld) [Mass/Vol] 17.0 g/dL Normal 13.5-17.5 [facility] Comment on above: Order Comment: Campu s: M Performed By: #### L 200.06518 ####[facility] [id number] [place] [address]Zq# [phone] IMMATR GRAN ABS 0.00 K/CU MM Normal Less than 2 [facility] Comment on above: Order Comment: Campu s: M Performed By: #### L 200.93242 ####[facility] [id number] [place], [place] [address]Bx# [phone] IMMATURE GRAN % 0.3 % Normal Less than 2 [facility] Comment on above: Order Comment: Campu s: M Performed By: #### L 200.58737 ####[address] [address]Kx# [phone] LYMPH ABS 4.00 K/CU MM Normal 0.9-4.4 [facility] Comment on above: Order Comment: Campu s: M Performed By: #### L 200.53767 ####[place] [address]Ph# [phone] Lymphocytes/100 WBC (Bld) 46.2 % High 20-40 [facility] Comment on above: Order Comment: Campu s: M Performed By: #### L 200.61447 ####[place] [address]Ph# [phone] MCHC (RBC) [Mass/Vol] 36.0 g/dL Normal 32.0-36.0 [facility] Comment on above: Order Comment: Campu s: M Performed By: #### L 200.20702 ####[facility] [id number] [place] [address]Mn# [phone] MCV (RBC) [Entitic vol] 93.7 fL Normal 80.0-99.0 M [facility] Comment on above: Order Comment: Campu s: M Performed By: #### L 200.58826 ####[facility] [id number] [place] [address] 7[address]Fo# [phone] MONO ABS 0.60 K/CU MM Normal 0.1-1.1 [facility] Comment on above: Order Comment: Campu s: M Performed By: #### L 200.58212 ####[facility] [id number] [place], [place] [address]Bp# [phone] Monocytes/100 WBC (Bld) 6.4 % Normal 2-10 M [facility] Comment on above: Order Comment: Campu s: M Performed By: #### L 200.48321 ####[facility] [id number] [place], [place] [address]Rl# [phone] NEUTROPHIL ABS 3.80 K/CU MM Normal 2.0-8.3 [facility] Comment on above: Order Comment: Campu s: M Performed By: #### L 200.92142 ####[facility] [id number] [place], [place] [address]Ph# [phone] Neutrophils/100 WBC (Bld) 43.3 % Low 45-75 [facility] Comment on above: Order Comment: Campu s: M Performed By: #### L 200.05745 ####[address] [address]Lo# [phone] Nucleated RBC/100 WBC (Bld) [Ratio] 0.0 % Normal Less than 1 [facility] Comment on above: Order Comment: Campu s: M Performed By: #### L 200.34415 ####[facility] [id number] [place] [address] 85[address]Xj# [phone] Platelet mean volume (Bld) [Entitic vol] 11.3 fL Normal 9.4-12.4 [facility] Comment on above: Order Comment: Campu s: M Performed By: #### L 200.99863 ####[facility] [id number] [place] [address] 189[address]So# [phone] PLT 191 K/CU MM Normal 150-450 [facility] Comment on above: Order Comment: Campu s: M Performed By: #### L 200.77594 ####[facility] [id number] [place] [address]Zy# [phone] RBC 5.04 M/CU MM Normal 4.50-6.00 [facility] Comment on above: Order Comment: Campu s: M Performed By: #### L 200.08930 ####[facility] [id number] [place], [place] [address]Ke# [phone] WBC 8.7 K/CUMM Normal 4.5-11.0 [facility] Comment on above: Order Comment: Eulalio ying: Gregory Performed By: #### L 200.58290 ####[facility] [id number] [place], [place] [address]Sx# [phone] EKGon 10-29-2020 Electrocardiogram Procedure Date and Time: 10/29/20258 Test Reason : STAT Blood Pressure : [...] 10/29/2020 11:19:23 AM Referred By: Emergency Stk Cnt Confirmed By:Viviana MARTÍNEZ M.D.FACC Ayala DDandT: 10/29/20258 TDandT: [facility] PATIENT NAME: ANDREW MCLEAN [facility] [address] MEDICAL REC #: [id number] [place] [address] ADMIT DATE: DISCHARGE DATE: 10/29/20 ATTENDING PHY: Manda Jackson MD ELECTROCARDIOGRAM REPORT CLB cc: [facility] PATIENT NAME: ANDREW MCLEAN [facility] [address] [place] MEDICAL REC #: [id number] [place] [address] ADMIT DATE: DISCHARGE DATE: 10/29/20 ATTENDING NAVARROY: Manda Jackson MD ELECTROCARDIOGRAM REPORT Normal [facility] Dionne 10-29-2020 EMERGENCY PHYSICIAN REPORT This is a preliminary report only, as the practitioner review and authentication has not occurred. Normal [facility] ER PHYSICIAN ASSESSMENT RECORDS : FlexChartData Event Time: 10/29/2020 05:45 Status: Signed [facility] Andrew Mclean [[id number]] Attending Physician 40 / M / 1980 Chart (V2b) Chart created at 10/29/2020 05:40 by Manda Jackson Chart closed at 10/29/2020 05:58 Entry in Emergency Department at 10/29/2020 02:56, departure at 10/29/2020 05:55 Patient Name: Andrew Mclean Record Number: [id number] Date: 10/29/2020 05:40 Entered Department at: 10/29/2020 [...] Systems. All other systems reviewed and negative.. [facility] PATIENT NAME: ANDREW MCLEAN [address] [facility] [address] [place] MEDICAL REC #: [id number] [place] [address] EMERGENCY DEPARTMENT REPORT EMERGENCY DEPARTMENT PHYSICIAN Past [...] %; RBC: 5.04 M/Cu Mm; RDW: 12.1 [facility] PATIENT NAME: ANDREW MCLEAN [facility] [address] N[facility] MEDICAL REC #: [id number] [place] [address] EMERGENCY DEPARTMENT REPORT EMERGENCY DEPARTMENT PHYSICIAN TROPONIN [...] This report was electronically signed by Leonel Ackerman 10/29/2020 3:45 AM [facility] PATIENT NAME: ANDREW MCLEAN [address] [facility] [address] [place] MEDICAL REC #: [id number] [place] [id number] EMERGENCY DEPARTMENT REPORT EMERGENCY DEPARTMENT PHYSICIAN Reported By: LEONEL ACKERMAN MD Medical Decision Making Laboratory evaluation is [...] home. He is instructed to follow with [facility] ([place], [place]) (more content not included)... [facility]on 10-29-2020 IF AMER Greater than 60 Normal [facility] Comment on above: Order Comment: Asifu s: M Performed By: #### L 500.19947, L500.98534 ####[facility] [id number] [place], [place] [address]Sx# [phone] IF non-AFR AMER Greater than 60 Normal [facility] Comment on above: Order Comment: Asifu s: M Performed By: #### L 500.81737, L500.62859 ####[facility] [id number] [place], [place] [address]Yw# [phone] PORTABLE CHESTon 10-29-2020 PORTABLE CHEST EXAMINATION: CHEST [...] This report was electronically signed by Leonel Ackerman 10/29/2020 3:45 AM Reported By: LEONEL ACKERMAN MD Signed By: LEONEL ACKERMAN MD Normal [facility] TROPONIN Ion 10-29-2020 TROPONIN I 3.0 pg/mL Normal 0-54 [facility] Comment on above: Order Comment: Eulalio s: M Result Comment: NOTE NEW NORMAL RANGE DUE TO REAGENT CHANGE This assay uses different antibodies than our current assay, and assays, even by the same manager shift may recognize different regions of the antibody and cannot be used interchangeably. Expect results of this assay to run higher than the previous assay. Performed By: #### L 550.50955 #### [facility] [address] [place] [address] .Auto Diffon 10-02-2020 Basophil, Absolute 0.10 10 3/mcL Normal 0.00-0.27 [facility] ([place]) Comment on above: Performed By: #### C BC, ADIFF, ANEU, CMP, GFR, LIP #### [address] [address] Basophils/100 WBC (Bld) 1.2 % Normal 0.0-2.5 A [facility] ([place]) Comment on above: Performed By: #### C BC, ADIFF, ANEU, CMP, GFR, LIP #### [address] [address] Eosinophil, Absolute 0.10 10 3/mcL Normal 0.00-0.65 A [facility] ([place]) Comment on above: Performed By: #### C BC, ADIFF, ANEU, CMP, GFR, LIP #### [address] [address] Eosinophils/100 WBC (Bld) 0.9 % Normal 0.0-6.0 [facility] ([place]) Comment on above: Performed By: #### C BC, ADIFF, ANEU, CMP, GFR, LIP #### [address] [address] Lymphocyte, Absolute 3.40 10 3/mcL Normal 0.90-4.32 A [facility] ([place]) Comment on above: Performed By: #### C BC, ADIFF, ANEU, CMP, GFR, LIP #### [address] [address] Lymphocytes/100 WBC (Bld) 39.0 % Normal 20.0-40.0 [facility] ([place]) Comment on above: Performed By: #### C BC, ADIFF, ANEU, CMP, GFR, LIP #### [address] [address] Monocyte, Absolute 0.50 10 3/mcL Normal 0.09-1.40 [facility] ([place]) Comment on above: Performed By: #### C BC, ADIFF, ANEU, CMP, GFR, LIP #### [address] [address] Monocytes/100 WBC (Bld) 5.9 % Normal 2.0-13.0 A [facility] ([place]) Comment on above: Performed By: #### C BC, ADIFF, ANEU, CMP, GFR, LIP #### [address] [address] Neutrophils/100 WBC (Bld) 53.0 % Normal 50.0-75.0 [facility] ([place]) Comment on above: Performed By: #### C BC, ADIFF, ANEU, CMP, GFR, LIP #### [address] [address] .GFRon 10-02-2020 GFR >60 Normal [facility] ([place]) Comment on above: Result Comment: GFR Population [...] BC, ADIFF, ANEU, CMP, GFR, LIP #### [address] [address] GFR Non- >60 Normal [facility] ([place]) Comment on above: Result Comment: GFR Population [...] BC, ADIFF, ANEU, CMP, GFR, LIP #### [address] [address] .NEUABSon 10-02-2020 Neutrophil, Absolute 4.60 10 3/mcL Normal 2.25-8.10 A [facility] ([place]) Comment on above: Performed By: #### C BC, ADIFF, ANEU, CMP, GFR, LIP #### [place] [id number] CBCon 10-02-2020 Erythrocyte distribution width (RBC) [Ratio] 13.4 % Normal 11.5-15.5 [facility] ([place]) Comment on above: Performed By: #### C BC, ADIFF, ANEU, CMP, GFR, LIP #### [place] [address] Hematocrit (Bld) [Volume fraction] 52.8 % High 40.0-52.0 [facility] ([place]) Comment on above: Performed By: #### C BC, ADIFF, ANEU, CMP, GFR, LIP #### [place] [address] Hgb 18.5 G/dL High 13.0-17.5 [facility] ([place]) Comment on above: Performed By: #### C BC, ADIFF, ANEU, CMP, GFR, LIP #### [place] [address] MCH (RBC) [Entitic mass] 33.9 pg High 27.0-33.0 [facility] ([place]) Comment on above: Performed By: #### C BC, ADIFF, ANEU, CMP, GFR, LIP #### [place] [address] MCHC 35.0 G/dL Normal 32.0-36.0 [facility] ([place]) Comment on above: Performed By: #### C BC, ADIFF, ANEU, CMP, GFR, LIP #### [place] [address] MCV (RBC) [Entitic vol] 96.8 fL Normal 81.0-100.0 A [facility] ([place]) Comment on above: Performed By: #### C BC, ADIFF, ANEU, CMP, GFR, LIP #### [place] [address] Platelet 207 10 3/mcL Normal 150-450 [facility] ([place]) Comment on above: Performed By: #### C BC, ADIFF, ANEU, CMP, GFR, LIP #### [address] [address] Platelet mean volume (Bld) [Entitic vol] 9.6 fL Normal 6.4-10.5 [facility] ([place]) Comment on above: Performed By: #### C BC, ADIFF, ANEU, CMP, GFR, LIP #### [place] [id number] RBC 5.46 10 6/mcL Normal 4.50-6.00 [facility] ([place]) Comment on above: Performed By: #### C BC, ADIFF, ANEU, CMP, GFR, LIP #### [place] [id number] WBC 8.70 10 3/mcL Normal 4.50-10.80 [facility] ([place]) Comment on above: Performed By: #### C BC, ADIFF, ANEU, CMP, GFR, LIP #### [place] [address] CMPon 10-02-2020 Albumin Level 4.1 G/dL Normal 3.2-4.8 [facility] ([place]) Comment on above: Performed By: #### C BC, ADIFF, ANEU, CMP, GFR, LIP #### [place] [address] Albumin/Globulin [Mass ratio] 1.1 {ratio} Normal 0.9-1.6 [facility] ([place]) Comment on above: Performed By: #### C BC, ADIFF, ANEU, CMP, GFR, LIP #### [place] [address] ALP [Catalytic activity/Vol] 65 U/L Normal 38-126 [facility] ([place]) Comment on above: Performed By: #### C BC, ADIFF, ANEU, CMP, GFR, LIP #### [address] [address] ALT [Catalytic activity/Vol] 89 U/L High 12-55 [facility] ([place]) Comment on above: Performed By: #### C BC, ADIFF, ANEU, CMP, GFR, LIP #### [address] [address] AST [Catalytic activity/Vol] 31 U/L Normal 8-34 [facility] ([place]) Comment on above: Performed By: #### C BC, ADIFF, ANEU, CMP, GFR, LIP #### [address] [address] Bili Total 0.4 mg/dL Normal 0.2-1.2 [facility] ([place]) Comment on above: Result Comment: Use of this assay is not recommended for patients undergoing treatment with eltrombopag due to the potential for falsely elevated results. Performed By: #### C BC, ADIFF, ANEU, CMP, GFR, LIP #### [place] [id number] BUN/Creatinine Ratio 16.0 ratio Normal 10.0-22.0 [facility] ([place]) Comment on above: Performed By: #### C BC, ADIFF, ANEU, CMP, GFR, LIP #### [address] [address] Calcium [Mass/Vol] 9.1 mg/dL Normal 8.4-10.1 On license of [facility] ([place]) Comment on above: Result Comment: No te - New Reference Range in effect 19 Performed By: #### C BC, ADIFF, ANEU, CMP, GFR, LIP #### [address] [address] Chloride [Moles/Vol] 109 mmol/L Normal 98-110 [facility] ([place]) Comment on above: Performed By: #### C BC, ADIFF, ANEU, CMP, GFR, LIP #### [address] [address] CO2 [Moles/Vol] 25 mmol/L Normal 22-32 [facility] ([place]) Comment on above: Performed By: #### C BC, ADIFF, ANEU, CMP, GFR, LIP #### [address] [address] Creatinine [Mass/Vol] 0.94 mg/dL Normal 0.60-1.40 [facility] ([place]) Comment on above: Performed By: #### C BC, ADIFF, ANEU, CMP, GFR, LIP #### [address] [address] Electrolyte Balance 5.0 mEq/L Normal 4.0-15.0 [facility] ([place]) Comment on above: Performed By: #### C BC, ADIFF, ANEU, CMP, GFR, LIP #### [address] [address] Globulin 3.7 G/dL Normal 1.5-3.8 [facility] ([place]) Comment on above: Performed By: #### C BC, ADIFF, ANEU, CMP, GFR, LIP #### [place] [id number] Glucose [Mass/Vol] 97 mg/dL Normal 70-110 On license of [facility] ([place]) Comment on above: Performed By: #### C BC, ADIFF, ANEU, CMP, GFR, LIP #### [place] [id number] Potassium [Moles/Vol] 3.9 mmol/L Normal 3.5-5.0 [facility] ([place]) Comment on above: Performed By: #### C BC, ADIFF, ANEU, CMP, GFR, LIP #### [address] [address] Sodium [Moles/Vol] 139 mmol/L Normal 136-145 On license of [facility] ([place]) Comment on above: Performed By: #### C BC, ADIFF, ANEU, CMP, GFR, LIP #### [place] [id number] Total Protein 7.8 G/dL Normal 6.0-8.5 [facility] ([place]) Comment on above: Result Comment: No te - New Reference Range in effect 19 Performed By: #### C BC, ADIFF, ANEU, CMP, GFR, LIP #### [facility] [address] [place] [address] Urea nitrogen [Mass/Vol] 15.0 mg/dL Normal 8.0-22.0 [facility] ([place]) Comment on above: Performed By: #### C BC, ADIFF, ANEU, CMP, GFR, LIP #### [facility] [address] [place] [address] ABD/PELVIS W/ IV CONTRAST ONLYon 10-02-2020 [...] Date: 10/02/2020 8:42:53 PM Ordering Provider:Sharad Hope [facility] ([place]) LIPon 10-02-2020 Lipase Level 50 U/L Normal - [facility] ([place]) Comment on above: Result Comment: No te - New Reference Range in effect 19 Performed By: #### C BC, ADIFF, ANEU, CMP, GFR, LIP #### [place] [id number] [address] [place] [address] US ABDOMEN LIMITEDon 021 US ABDOMEN LIMITED [...] Date: 10/02/2020 7:14:57 PM Ordering Provider:Leann Fairchild [facility] ([place]) Dionne 08-30-2020 EMERGENCY PHYSICIAN REPORT This is a preliminary report only, as the practitioner review and authentication has not occurred. [facility] ER PHYSICIAN ASSESSMENT RECORDS : FlexChartData Event Time: 08/30/2020 13:20 BJKA Status: Signed [facility] Andrew Mclean [[id number]] Mid-Level Chart (V2b) 40 / M / 1980 Chart created at 08/30/2020 13:12 by Denver Osman Chart closed at 08/30/2020 13:17 Entry in Emergency Department at 08/30/2020 10:39, departure at 08/30/2020 14:18 Patient Name: Andrew Mclean Record Number: [id number] Date: 08/30/2020 13:12 Entered Department at: 08/30/2020 [...] in nurses note. Medications: Reviewed RN Note. [facility] PATIENT NAME: ANDREW MCLEAN [address] [facility] [address] MEDICAL REC #: [id number] [place] [address] EMERGENCY DEPARTMENT REPORT EMERGENCY DEPARTMENT PHYSICIAN Allergies: [...] were no prior studies available for comparison. [facility] PATIENT NAME: ANDREW MCLEAN [facility] Dr. Wagner MEDICAL REC #: [id number] [place] [address] EMERGENCY DEPARTMENT REPORT EMERGENCY DEPARTMENT PHYSICIAN The femoral head is in good position. No fractures are seen. There are mild degenerative changes. IMPRESSION: Mild degenerative change. No acute abnormalities. ---- Electronic Signature on File ---- Signed By: Sharad Cohn MD FACR [email or web address] Dictated: 08/30/2020 12:29 PM Signed: 08/30/2020 12:30 PM Reported By: SHARAD COHN M.D. Radiology: Interpreted by Radiologist. Medical Decision Making Vitals are noted. Patient is afebrile. Blood pressure is 174/104 this could be pain related. Patient was medicated with 1 [place] and muscle relaxer. Heart rate is 75. [...] pressure. He will be referred to the [facility] musculoskeletal clinic. Clinical Impression: [facility] PATIENT NAME: ANDREW MCLEAN [address] [facility] Dr. Wagner MEDICAL REC #: [id number] [place] [address] EMERGENCY DEPARTMENT REPORT EMERGENCY DEPARTMENT PHYSICIAN 1. Subacute right hip pain 2. Elevated blood pressure Disposition: Discharged . Condition: Good Electronically sign (more content not included)... Normal [facility] HIP COMP 2-3 VIEWS RIGHTon [...] Signed By: Sharad Cohn MD FACR [email or web address] Dictated: 08/30/2020 12:29 PM Signed: 08/30/2020 12:30 PM Reported By: SHARAD COHN M.D. Signed By: SHARAD COHN M.D. [facility] Vital Signs Date Time Vital Sign Value Performing Clinician Facility 01-11-2025 19:00-0400 Body temperature 98.1 [degF] No Primary Care Physician [facility] 01-11-2025 19:00-0400 Diastolic blood pressure 92 mm[Hg] No Primary Care Physician [facility] 01-11-2025 19:00-0400 Heart rate 76 /min No Primary Care Physician [facility] 01-11-2025 19:00-0400 Respiratory rate 18 /min No Primary Care Physician [facility] 01-11-2025 19:00-0400 SaO2% (BldA) [Mass fraction] 98 % No Primary Care Physician [facility] 01-11-2025 19:00-0400 Systolic blood pressure 138 mm[Hg] No Primary Care Physician [facility] 01-11-2025 17:14-0400 Body height 175.26 cm No Primary Care Physician [facility] 01-05-2025 08:05-0400 Body height 175.26 cm No Primary Care Physician [facility] 01-05-2025 08:05-0400 Body mass index (BMI) [Ratio] 29.8 kg/m2 No Primary Care Physician [facility] 01-05-2025 08:05-0400 Body weight 91.62 kg No Primary Care Physician [facility] 11-25-2024 16:24-0400 Body temperature 98 [degF] No Primary Care Physician [facility] 11-25-2024 16:24-0400 Diastolic blood pressure 87 mm[Hg] No Primary Care Physician [facility] 11-25-2024 16:24-0400 Heart rate 73 /min No Primary Care Physician [facility] 11-25-2024 16:24-0400 Respiratory rate 18 /min No Primary Care Physician [facility] 11-25-2024 16:24-0400 SaO2% (BldA) [Mass fraction] 98 % No Primary Care Physician [facility] 11-25-2024 16:24-0400 Systolic blood pressure 156 mm[Hg] No Primary Care Physician [facility] 11-25-2024 14:25-0400 Body height 175.26 cm No Primary Care Physician [facility] 11-25-2024 14:25-0400 Body mass index (BMI) [Ratio] 27.8 kg/m2 No Primary Care Physician [facility] 11-25-2024 14:25-0400 Body weight 85.6 kg No Primary Care Physician [facility] 10-31-2024 03:07-0400 Body temperature 97.8 [degF] No Primary Care Physician [facility] 10-31-2024 03:07-0400 Diastolic blood pressure 81 mm[Hg] No Primary Care Physician [facility] 10-31-2024 03:07-0400 Heart rate 69 /min No Primary Care Physician [facility] 10-31-2024 03:07-0400 Respiratory rate 18 /min No Primary Care Physician [facility] 10-31-2024 03:07-0400 SaO2% (BldA) [Mass fraction] 99 % No Primary Care Physician [facility] 10-31-2024 03:07-0400 Systolic blood pressure 121 mm[Hg] No Primary Care Physician [facility] 10-30-2024 22:55-0400 Body height 175.26 cm No Primary Care Physician [facility] 10-30-2024 22:55-0400 Body mass index (BMI) [Ratio] 27.1 kg/m2 No Primary Care Physician [facility] 10-30-2024 22:55-0400 Body weight 83.46 kg No Primary Care Physician [facility] 10-15-2024 15:18-0400 Body temperature 98 [degF] No Primary Care Physician [facility] 10-15-2024 15:18-0400 Diastolic blood pressure 97 mm[Hg] No Primary Care Physician [facility] 10-15-2024 15:18-0400 Heart rate 78 /min No Primary Care Physician [facility] 10-15-2024 15:18-0400 Respiratory rate 16 /min No Primary Care Physician [facility] 10-15-2024 15:18-0400 SaO2% (BldA) [Mass fraction] 99 % No Primary Care Physician [facility] 10-15-2024 15:18-0400 Systolic blood pressure 137 mm[Hg] No Primary Care Physician [facility] 10-15-2024 12:05-0400 Body height 175.26 cm No Primary Care Physician [facility] 10-15-2024 12:05-0400 Body mass index (BMI) [Ratio] 27.2 kg/m2 No Primary Care Physician [facility] 10-15-2024 12:05-0400 Body weight 83.64 kg No Primary Care Physician [facility] 08-28-2023 18:05-0400 Body height 175.3 cm Ngoc Oliveros DO Work Phone: [facility] 08-28-2023 18:04-0400 Body temperature 98.01 [degF] Ngoc Oliveros DO Work Phone: [facility] 08-28-2023 18:04-0400 Diastolic blood pressure 96 mm[Hg] Ngoc Oliveros DO Work Phone: [facility] 08-28-2023 18:04-0400 Heart rate 100 /min Ngoc Oliveors DO Work Phone: [facility] 08-28-2023 18:04-0400 Respiratory rate 18 /min Ngoc Oliveros DO Work Phone: [facility] 08-28-2023 18:04-0400 SaO2% (BldA) [Mass fraction] 99 % Ngoc Oliveros DO Work Phone: [facility] 08-28-2023 18:04-0400 Systolic blood pressure 126 mm[Hg] Ngoc Oliveros DO Work Phone: [facility] 07-26-2023 13:27-0400 Body temperature 98.4 [degF] [facility] 07-26-2023 13:27-0400 Diastolic blood pressure 85 mm[Hg] [facility] 07-26-2023 13:27-0400 Heart rate 74 /min [facility] 07-26-2023 13:27-0400 Respiratory rate 16 /min [facility] 07-26-2023 13:27-0400 SaO2% (BldA) [Mass fraction] 100 % [facility] 07-26-2023 13:27-0400 Systolic blood pressure 121 mm[Hg] [facility] 07-26-2023 11:27-0400 Body height 175.26 cm [facility] 07-26-2023 11:27-0400 Body mass index (BMI) [Ratio] 27.5 kg/m2 [facility] 07-26-2023 11:27-0400 Body weight 84.62 kg [facility] 04-16-2023 11:05-0500 SaO2% (BldA) [Mass fraction] 95 % [facility] 04-16-2023 09:36-0500 Heart rate 96 /min [facility] 04-16-2023 09:36-0500 Respiratory rate 18 /min [facility] 04-16-2023 08:27-0500 Diastolic blood pressure 98 mm[Hg] [facility] 04-16-2023 08:27-0500 Systolic blood pressure 150 mm[Hg] [facility] 04-16-2023 06:51-0500 Body height 175.26 cm [facility] 04-16-2023 06:51-0500 Body mass index (BMI) [Ratio] 27.3 kg/m2 [facility] 04-16-2023 06:51-0500 Body temperature 97.2 [degF] [facility] 04-16-2023 06:51-0500 Body weight 84.1 kg [facility] 04-10-2023 10:56-0500 Respiratory rate 18 /min [facility] 04-10-2023 08:58-0500 Body mass index (BMI) [Ratio] 27.2 kg/m2 [facility] 04-10-2023 08:58-0500 Body temperature 98.6 [degF] [facility] 04-10-2023 08:58-0500 Body weight 83.7 kg [facility] 04-10-2023 08:58-0500 Diastolic blood pressure 82 mm[Hg] [facility] 04-10-2023 08:58-0500 Heart rate 95 /min [facility] 04-10-2023 08:58-0500 SaO2% (BldA) [Mass fraction] 99 % [facility] 04-10-2023 08:58-0500 Systolic blood pressure 128 mm[Hg] [facility] 03-03-2022 19:50-0500 Diastolic blood pressure 119 mm[Hg] Dr. Ena Holloway Work Phone: [facility] Work Phone: 03-03-2022 19:50-0500 Heart rate 101 /min Dr. Ena Holloway Work Phone: [facility] Work Phone: 03-03-2022 19:50-0500 Systolic blood pressure 154 mm[Hg] Dr. Ena Holloway Work Phone: [facility] Work Phone: 03-03-2022 19:26-0500 Body height 175.[address] Ena Holloway Work Phone: [facility] Work Phone: 03-03-2022 19:26-0500 Body mass index (BMI) [Ratio] 28.8 kg/m2 Dr. Ena Holloway Work Phone: [facility] Work Phone: 03-03-2022 19:26-0500 Body temperature 97.9 [degF] Dr. Ena Holloway Work Phone: [facility] Work Phone: 03-03-2022 19:26-0500 Body weight 88.[address] Ena Holloway Work Phone: [facility] Work Phone: 03-03-2022 19:26-0500 Respiratory rate 18 /min Dr. Ena Holloway Work Phone: [facility] Work Phone: 03-03-2022 19:26-0500 SaO2% (BldA) [Mass fraction] 96 % Dr. Ena Holloway Work Phone: [facility] Work Phone: 02-28-2022 08:16-0500 Body height 177.[address] Ena Holloway Work Phone: [facility] Work Phone: 02-28-2022 08:16-0500 Body mass index (BMI) [Ratio] 30.1 kg/m2 Dr. Ena Hololway Work Phone: [facility] Work Phone: 02-28-2022 08:16-0500 Body temperature 97.5 [degF] Dr. Ena Holloway Work Phone: [facility] Work Phone: 02-28-2022 08:16-0500 Body weight 95.[address] Ena Holloway Work Phone: [facility] Work Phone: 02-28-2022 08:16-0500 Diastolic blood pressure 106 mm[Hg] Dr. Ena oHlloway Work Phone: [facility] Work Phone: 02-28-2022 08:16-0500 Heart rate 109 /min Dr. Ena Holloway Work Phone: [facility] Work Phone: 02-28-2022 08:16-0500 Respiratory rate 18 /min Dr. Ena Holloway Work Phone: [facility] Work Phone: 02-28-2022 08:16-0500 SaO2% (BldA) [Mass fraction] 99 % Dr. Ena Holloway Work Phone: [facility] Work Phone: 02-28-2022 08:16-0500 Systolic blood pressure 147 mm[Hg] Dr. Ena Holloway Work Phone: [facility] Work Phone: 01-07-2022 09:10-0400 Body temperature 98.8 [degF] Dr. Ena Holloway Work Phone: [facility] Work Phone: 01-07-2022 09:10-0400 Diastolic blood pressure 97 mm[Hg] Dr. Ena Holloway Work Phone: [facility] Work Phone: 01-07-2022 09:10-0400 Heart rate 63 /min Dr. Ena Holloway Work Phone: [facility] Work Phone: 01-07-2022 09:10-0400 Respiratory rate 14 /min Dr. Ena Holloway Work Phone: [facility] Work Phone: 01-07-2022 09:10-0400 SaO2% (BldA) [Mass fraction] 98 % Dr. Ena Holloway Work Phone: [facility] Work Phone: 01-07-2022 09:10-0400 Systolic blood pressure 133 mm[Hg] Dr. Ena Holloway Work Phone: [facility] Work Phone: 01-06-2022 10:31-0400 Body height 177.[address] Ena Holloway Work Phone: [facility] Work Phone: 01-06-2022 10:31-0400 Body weight 92.[address] Ena Holloway Work Phone: [facility] Work Phone: 01-06-2022 09:20-0400 Body mass index (BMI) [Ratio] 29.2 kg/m2 Dr. Ena Holloway Work Phone: [facility] Work Phone: 01-06-2022 03:39-0400 Body temperature 98 [degF] Dr. Ena Cola Work Phone: [facility] Work Phone: 01-06-2022 03:39-0400 Diastolic blood pressure 99 mm[Hg] Dr. Ena Holloway Work Phone: [facility] Work Phone: 01-06-2022 03:39-0400 Heart rate 67 /min Dr. Ena Holloway Work Phone: [facility] Work Phone: 01-06-2022 03:39-0400 Respiratory rate 16 /min Dr. Ena Holloway Work Phone: [facility] Work Phone: 01-06-2022 03:39-0400 SaO2% (BldA) [Mass fraction] 98 % Dr. Ena Holloway Work Phone: [facility] Work Phone: 01-06-2022 03:39-0400 Systolic blood pressure 132 mm[Hg] Dr. Ena Holloway Work Phone: [facility] Work Phone: 01-06-2022 01:15-0400 Body height 177.[address] Ena Holloway Work Phone: [facility] Work Phone: 01-06-2022 01:15-0400 Body mass index (BMI) [Ratio] 41.5 kg/m2 Dr. Ena Holloway Work Phone: [facility] Work Phone: 01-06-2022 01:15-0400 Body weight 131.[address] Ena Holloway Work Phone: [facility] Work Phone: 01-03-2022 16:48-0400 SaO2% (BldA) [Mass fraction] 94 % Dr. Ena Holloway Work Phone: [facility] Work Phone: 01-03-2022 12:53-0400 Body temperature 98.1 [degF] Dr. Ena Holloway Work Phone: [facility] Work Phone: 01-03-2022 12:53-0400 Diastolic blood pressure 97 mm[Hg] Dr. Ena Holloway Work Phone: [facility] Work Phone: 01-03-2022 12:53-0400 Heart rate 55 /min Dr. Ena Holloway Work Phone: [facility] Work Phone: 01-03-2022 12:53-0400 Respiratory rate 18 /min Dr. Ena Holloway Work Phone: [facility] Work Phone: 01-03-2022 12:53-0400 Systolic blood pressure 128 mm[Hg] Dr. Ena Holloway Work Phone: [facility] Work Phone: 01-03-2022 09:29-0400 Body height 177.[address] Ena Holloway Work Phone: [facility] Work Phone: 01-03-2022 09:29-0400 Body mass index (BMI) [Ratio] 29.4 kg/m2 Dr. Ena Holloway Work Phone: [facility] Work Phone: 01-03-2022 09:29-0400 Body weight 92.[address] Ena Holloway Work Phone: [facility] Work Phone: 12-31-2021 21:21-0400 Body temperature 98 [degF] [facility] Work Phone: 12-31-2021 21:21-0400 Diastolic blood pressure 104 mm[Hg] [facility] Work Phone: 12-31-2021 21:21-0400 Heart rate 84 /min [facility] Work Phone: 12-31-2021 21:21-0400 Respiratory rate 16 /min [facility] Work Phone: 12-31-2021 21:21-0400 SaO2% (BldA) [Mass fraction] 95 % [facility] Work Phone: 12-31-2021 21:21-0400 Systolic blood pressure 141 mm[Hg] [facility] Work Phone: 12-31-2021 15:38-0400 Body height 177.8 cm [facility] Work Phone: 12-31-2021 15:38-0400 Body mass index (BMI) [Ratio] 30.3 kg/m2 [facility] Work Phone: 12-31-2021 15:38-0400 Body weight 95.8 kg [facility] Work Phone: 12-02-2021 10:41-0400 Diastolic blood pressure 105 mm[Hg] [facility] Work Phone: 12-02-2021 10:41-0400 Heart rate 98 /min [facility] Work Phone: 12-02-2021 10:41-0400 Respiratory rate 17 /min [facility] Work Phone: 12-02-2021 10:41-0400 SaO2% (BldA) [Mass fraction] 97 % [facility] Work Phone: 12-02-2021 10:41-0400 Systolic blood pressure 134 mm[Hg] [facility] Work Phone: 12-02-2021 09:51-0400 Body height 175.26 cm [facility] Work Phone: 12-02-2021 09:51-0400 Body mass index (BMI) [Ratio] 30.3 kg/m2 [facility] Work Phone: 12-02-2021 09:51-0400 Body temperature 97.8 [degF] [facility] Work Phone: 12-02-2021 09:51-0400 Body weight 93.2 kg [facility] Work Phone: 11-15-2021 17:56-0400 Body height 175.26 cm [facility] Work Phone: 11-15-2021 17:56-0400 Body mass index (BMI) [Ratio] 31.6 kg/m2 [facility] Work Phone: 11-15-2021 17:56-0400 Body temperature 96.3 [degF] [facility] Work Phone: 11-15-2021 17:56-0400 Body weight 97.1 kg [facility] Work Phone: 11-15-2021 17:56-0400 Diastolic blood pressure 131 mm[Hg] [facility] Work Phone: 11-15-2021 17:56-0400 Heart rate 95 /min [facility] Work Phone: 11-15-2021 17:56-0400 Respiratory rate 16 /min [facility] Work Phone: 11-15-2021 17:56-0400 SaO2% (BldA) [Mass fraction] 97 % [facility] Work Phone: 11-15-2021 17:56-0400 Systolic blood pressure 169 mm[Hg] [facility] Work Phone: 09-20-2021 07:50-0400 Diastolic blood pressure 72 mm[Hg] [facility] Work Phone: 09-20-2021 07:50-0400 Heart rate 71 /min [facility] Work Phone: 09-20-2021 07:50-0400 Respiratory rate 16 /min [facility] Work Phone: 09-20-2021 07:50-0400 SaO2% (BldA) [Mass fraction] 98 % [facility] Work Phone: 09-20-2021 07:50-0400 Systolic blood pressure 134 mm[Hg] [facility] Work Phone: 09-20-2021 06:16-0400 Body height 175.26 cm [facility] Work Phone: 09-20-2021 06:16-0400 Body mass index (BMI) [Ratio] 32.1 kg/m2 [facility] Work Phone: 09-20-2021 06:16-0400 Body temperature 97.9 [degF] [facility] Work Phone: 09-20-2021 06:16-0400 Body weight 98.7 kg [facility] Work Phone: Encounters Encounter Date Encounter Type Care Provider Facility Start: 01-18-2025 ambulatory [facility] Facility :[facility] Start: 01-17-2025 Encounter for other preprocedural examination Adan Villagran [facility] Start: 01-16-2025 End: 01-16-2025 ambulatory [facility] Start: 01-11-2025 End: 01-11-2025 Emergency department patient visit No Primary Care Physician -Emergency Department Work Phone: Start: 01-05-2025 End: 01-05-2025 Patient encounter procedure Maricel [facility] -[facility] Work Phone: Start: 01-05-2025 End: 01-05-2025 ambulatory No Primary Care Physician -[facility] Start: 12-23-2024 End: 12-23-2024 ambulatory No Primary Care Physician -[facility] Start: 12-23-2024 End: 12-23-2024 Patient encounter procedure Makeda Hawkins [facility] -[facility] - [facility] Work Phone: Start: 12-23-2024 End: 12-23-2024 ambulatory [facility] Facility:[facility] Start: 12-02-2024 ambulatory [facility] Facility :[facility] Start: 11-25-2024 End: 11-25-2024 Emergency department patient visit No Primary Care Physician -Emergency Department Work Phone: Start: 11-07-2024 End: 11-07-2024 ambulatory No Primary Care Physician -[facility] Start: 11-07-2024 End: 11-07-2024 [facility] Work Phone: Start: 11-07-2024 End: 11-07-2024 ambulatory [facility] Facility:[facility] Start: 10-30-2024 End: 10-31-2024 Emergency department patient visit No Primary Care Physician -Emergency Department Work Phone: Start: 10-17-2024 End: 10-17-2024 Emergency department patient visit PRO QUINONES MD [facility] Start: 10-15-2024 End: 10-15-2024 Emergency department patient visit No Primary Care Physician -Emergency Department Work Phone: Start: 05-02-2024 End: 05-02-2024 Emergency department patient visit Rhett Tyler Facility:[facility] Start: 08-28-2023 End: 08-28-2023 Emergency department patient visit Ngoc Oliveros DO Work Phone: [facility] Start: 07-26-2023 End: 07-26-2023 Emergency department patient visit [facility] Work Phone: Start: 04-16-2023 End: 04-16-2023 Emergency department patient visit [facility] Work Phone: Start: 04-10-2023 End: 04-10-2023 Emergency department patient visit [facility] Work Phone: Start: 03-03-2022 End: 03-03-2022 Emergency department patient visit Dr. Ena Holloway Work Phone: [facility] Start: 02-28-2022 End: 02-28-2022 Emergency department patient visit Dr. nEa Holloway Work Phone: [facility] Start: 01-07-2022 Non-patient / Non-visit Dr. Nat Holloway Work Phone: [facility] Start: 01-06-2022 Non-patient / Non-visit Dr. Nat Holloway Work Phone: [facility] Start: 01-06-2022 End: 01-07-2022 Evaluation and management of inpatient Dr. Ena Holloway Work Phone: [facility] 3 Start: 01-03-2022 Non-patient / Non-visit Dr. Nat Holloway Work Phone: [facility] Start: 01-03-2022 Non-patient / Non-visit Dr. Nat Holloway Work Phone: [facility] Start: 01-02-2022 Non-patient / Non-visit Dr. Nat Holloway Work Phone: [facility] Start: 01-01-2022 Non-patient / Non-visit Dr. Nat Holloway Work Phone: [facility] Start: 01-01-2022 Non-patient / Non-visit Dr. Nat Holloway Work Phone: [facility] Start: 01-01-2022 End: 01-03-2022 Non-patient / Non-visit Dr. Ena Holloway Work Phone: [facility] Start: 12-31-2021 End: 09-30-2022 Evaluation and management of inpatient [facility] Start: 12-02-2021 End: 12-02-2021 Emergency department patient visit [facility] Start: 11-15-2021 End: 11-15-2021 Emergency department patient visit [facility] Start: 09-20-2021 End: 09-20-2021 Emergency department patient visit [facility] Procedures Date Procedure Procedure Detail Performing Clinician Start: 01-05-2025 X-ray of cervical spine No Primary Care Physician Start: 12-23-2024 MRI of cervical spine No Primary Care Physician Start: 11-25-2024 X-ray of cervical spine No Primary Care Physician Start: 11-07-2024 MRI of abdomen with contrast No Primary Care Physician Start: 10-31-2024 Urnls dip stick/tablet reagent auto microscopy No Primary Care Physician Start: 10-30-2024 Estimated creatinine clearance No Primar y Care Physician Start: 10-30-2024 Computed tomography of abdomen and pelvis with intravenous contrast No Primary Care Physician Start: 10-15-2024 Estimated creatinine clearance No Primar y Care Physician Start: 10-15-2024 CT of thorax, abdomen and pelvis with contrast No Primary Care Physician Start: 07-26-2023 Plain X-ray of shoulder Start: 04-16-2023 Plain chest X-ray Start: 04-10-2023 SARS-CoV-2, Influenza & RSV (PCR) Start: 01-06-[address] Ena dempsey Work Phone: Start: 01-06-2022 Computed tomography of abdomen and pelvis with intravenous contrast Dr. Ena Holloway Work Phone: Start: 01-03-[address] Ena Hollowya Work Phone: Start: 12-31-2021 Computed tomography of abdomen and pelvis with contrast Start: 12-02-2021 CT angiography of chest with contrast Start: 09-20-2021 Radiography of ankle Start: 09-20-2021 X-ray of both feet Start: 10-29-2020 Ecg routine ecg w/least 12 lds i&r only Plan of Treatment Date Care Activity Detail Author Start: 01-11-2025 [facility] Start: 01-05-2025 X-ray of cervical spine Cerv Spine 2 or 3 Views [facility] Start: 01-05-2025 XR Cervical spine 2 or 3 Views [facility] Start: 11-25-2024 [facility] Start: 10-31-2024 [facility] Start: 10-15-2024 [facility] Start: 10-15-2024 [facility] Start: 12-06-2023 Influenza vaccination INFLUENZA VACCINE (Season Ended) [facility] Start: 07-26-2023 [facility] Start: 04-16-2023 [facility] Start: 04-10-2023 [facility] Start: 12-05-2022 COVID-19 VACCINE ( season) COVID-19 VACCINE ( season) [facility] Start: 2022 Blood chemistry [facility] Work Phone: Start: 01-08-2022 Blood chemistry [facility] Work Phone: Start: 01-07-2022 Patient discharge [facility] Work Phone: Start: 01-06-2022 End: 01-07-2022 [facility] Work Phone: Start: 01-06-2022 Egd transoral biopsy single/multiple EGD BIOPSY SINGLE/MULTIPLE [facility] Work Phone: Start: 01-06-2022 Egd transoral control bleeding any method EGD CONTROL BLEEDING ANY [facility] Work Phone: Start: 01-06-2022 Catheterization of vein [facility] Work Phone: Start: 01-06-2022 Application of intermittent pneumatic compression device [facility] Work Phone: Start: 01-06-2022 Following clinical pathway protocol [facility] Work Phone: Start: 01-06-2022 Assessment of risk of venous thromboembolism [facility] Work Phone: Start: 01-06-2022 Insertion of catheter into peripheral vein [facility] Work Phone: Start: 01-06-2022 Oxygen therapy [facility] Work Phone: Start: 01-06-2022 Providing care according to standard [facility] Work Phone: Start: 01-06-2022 Referral to gastroenterology service [facility] Work Phone: Start: 01-06-2022 End: 01-06-2022 Verification routine [facility] Work Phone: Start: 01-06-2022 Admission procedure [facility] Work Phone: Start: 01-03-2022 Patient discharge [facility] Work Phone: Start: 01-01-2022 End: 01-02-2022 [facility] Work Phone: Start: 01-01-2022 Following clinical pathway protocol [facility] Work Phone: Start: 01-01-2022 End: 01-01-2022 Catheterization of vein [facility] Work Phone: Start: 01-01-2022 End: 01-01-2022 Notification of physician [facility] Work Phone: Start: 01-01-2022 Oxygen therapy [facility] Work Phone: Start: 12-31-2021 Ambulation without limitation [facility] Work Phone: Start: 12-31-2021 Assessment of risk of venous thromboembolism [facility] Work Phone: Start: 12-31-2021 Insertion of catheter into peripheral vein [facility] Work Phone: Start: 12-31-2021 Providing care according to standard [facility] Work Phone: Start: 12-31-2021 Referral to gastroenterology service [facility] Work Phone: Start: 12-31-2021 [facility] Work Phone: Start: 12-31-2021 Following clinical pathway protocol [facility] Work Phone: Start: 12-31-2021 Verification routine [facility] Work Phone: Start: 12-31-2021 Admission procedure [facility] Work Phone: Start: 12-02-2021 [facility] Work Phone: Start: 2019 Lipid panel LIPID SCREENING [facility] Start: 1998 Hepatitis B vaccination HEP B VACCINE (1 of 3 - 19+ 3-dose series) [facility] Start: 1998 Third diphtheria, tetanus and acellular pertussis (DTaP) vaccination TDAP (ADULT) [facility] Start: 1994 HIV screening HIV SCREENING DISCUSSION [facility] Start: 1979 Hepatitis C screening HEPATITIS C VIRUS SCREENING [facility] Start: 1979 Tetanus vaccination TETANUS [facility] Anion gap measurement [facility] Work Phone: BUN/Creatinine ratio [facility] Work Phone: Calcium [Mass/volume ] in Serum or Plasma [facility] Work Phone: Carbon dioxide, tota l [Moles/volume] in Serum or Plasma [facility] Work Phone: Chloride [Moles/volu me] in Serum or Plasma [facility] Work Phone: Creatinine [Moles/vo lume] in Serum or Plasma [facility] Work Phone: Glucose [Mass/volume ] in Serum or Plasma [facility] Work Phone: Hematocrit [Volume F raction] of Blood [facility] Work Phone: Hemoglobin [Mass/vol ume] in Blood [facility] Work Phone: Leukocytes [#/volume ] in Blood [facility] Work Phone: Mean corpuscular hem oglobin concentration determination [facility] Work Phone: Mean corpuscular hem oglobin determination [facility] Work Phone: Measurement of renal function [facility] Work Phone: Neutrophil count [facility] Work Phone: Neutrophil percent differential count [facility] Work Phone: Patient Education [facility] Work Phone: Patient referral [facility] Work Phone: Platelets [#/volume] in Blood [facility] Work Phone: Potassium [Moles/vol ume] in Serum or Plasma [facility] Work Phone: Red blood cell count [facility] Work Phone: Red cell distributio n width determination [facility] Work Phone: Sodium [Moles/volume ] in Serum or Plasma [facility] Work Phone: Urea nitrogen [Mass/ volume] in Serum or Plasma [facility] Work Phone: Immunizations Immunization Date Immunization Notes Care Provider Fa [facility] 02-28-2022 tetanus toxoid, redu jd diphtheria toxoid, and acellular pertussis vaccine, adsorbed Dr. Ena Holloway Work Phone: [facility] Payers Date Payer Category Payer Private Health Insurance [id number] 2024 Self-pay [id number] 2024 Unknown [id number] 2012 Medicaid [id number] 2012 Unknown [id number] 1979 Unknown [id number] [id number]. [id number] Private Health Insurance [id number] Unknown [id number] Unknown [id number] 2.16.8 [id number] Unknown [id number] 2.16.8 [id number] Unknown [id number] 2.16.8 [id number] Unknown [id number] 2.16.8 [id number] Unknown [id number] 2.16.8 [id number] Unknown [id number] 2.16.8 [id number] Unknown [id number] 2.16.8 [id number] Unknown [id number] 2.16.8 [id number] Unknown [id number] 2.16.8 [id number] Unknown [id number] 2.16.8 [id number] Unknown [id number] 2.16.8 [id number] Unknown [id number] 2.16.8 [id number] Social History Date Type Detail Facility Start: 09-20-2021 End: 07-26-2023 Tobacco smoking status UTIS Unknown if ever smoked [facility] Start: 06-30-2018 None [facility] Start: 12-29-2018 With Family [facility] Start: 04-22-2020 Cigarettes [facility] Start: 1980 Sex Assigned At Male [facility] Start: 08-28-2023 Tobacco smoking stat us NHIS Ex-smoker [facility] History of tobacco use Current smoker [facility] History of tobacco use Cigarette Smoker [facility] Start: 08-28-2023 Tobacco use and exposure Smokeless tobacco non-user [facility] Start: 08-28-2023 Alcoholic beverage intake Ex-drinker (finding) [facility] Start: 08-28-2023 History of Social function [facility] Start: 08-28-2023 Tobacco use panel [facility] Start: 1980 Sex assigned at Not on file [facility] Start: 10-15-2024 Tobacco smoking stat us UTIS Current Light tobacco smoker [facility] Tobacco smoking status [facility] Start: 10-02-2020 Sex Male (finding) [facility] Start: 10-30-2024 End: 01-11-2025 Tobacco smoking status NHIS Smokes tobacco daily (finding) [facility] Goals Date Patient Goal Desired Activity /State Functional Status Date Assessment Result Facility 01-07-2022 Functional status Ambulates [facility] Work Phone: 01-03-2022 Functional status Ambulates;Up ad blake [facility] Work Phone: Mental Status Date Assessment Result Facility 01-11-2025 Cognitive function Level Of Consciousness Awake [facility] Work Phone: 11-25-2024 Cognitive function Awake;Alert;A ppropriate;Follow s Commands [facility] Work Phone: 10-15-2024 Cognitive function Awake;Alert;A ppropriate;Follow s Commands [facility] Work Phone: 01-07-2022 Cognitive function Level Of Cons ciousness Awake;Alert;Appropriate;Follow s Commands [facility] Work Phone: 01-06-2022 Cognitive function Comprehension Ability Demonstrates ability to follow instructions/comprehend [facility] Work Phone: 01-06-2022 Cognitive function Arousable To Light Dianna n [facility] Work Phone: 01-06-2022 Cognitive function Appropriate;Cooperativ e [facility] Work Phone: 01-03-2022 Cognitive function Awake;Alert;Appropriat [facility] Work Phone: 01-03-2022 Cognitive function Appropriate;Janis [facility] Work Phone: 12-02-2021 Cognitive function Voice/Name [facility] Work Phone: Clinical Notes 10-15-2021 to 01-11-2025 Note Date & Type Note Facility 01-11-2025 Discharge summary [facility] 01-11-2025 Discharge summary Note Date/Time January 11, 2025 6:46pm [facility] Medical Records Department [address] [place] [address] Emergency Department Summary 01/11/25 MR#: [id number] Acct: [id number] Name: ANDREW MCLEAN . Rep #:[id number] : 1980 45 From: Junior Johnson MD PCP: LUCIANO Peñaloza Status:PRE E R Location: ED HPI History of Present Illness Chief Complaint: Other, Pain/Inj Narrative Narrative: 45-year-old male past medical history of known cervical myelopathy and C6 cervical radiculopathy affecting his right upper extremity presents with frequent falls and increasing pain/burning pain of his right arm. He states that whenever he turns his head a certain way, he will get increased pain, and he causes him to fall. He and his fianc?e state that he was recently seen by his pain management doctor Dr. Rose and he is currently taking gabapentin 300 mg 3 times a day. He also saw the PA at Dr. Villagran's office, and they are urgently trying to schedule surgery for his cervical radiculopathy. He denies any fevers or chills, no recent trauma. He states he was told that if his symptoms are worsening that he needs to come to the emergency department. [facility] Medical History Migraines Asthma Internal hemorrhage Hypertension Home Medications ?Medication ?Instructions ?Recorded ?Last Taken ?Type albuterol sulfate 90 mcg/actuation 2 puff inhalation Q 4-6H PRN dyspnea 01/05/25 Unknown History aerosol inhaler gabapentin 300 mg capsule 300 mg PO BID #60 caps 01/05 Unknown Rx pregabalin 150 mg capsule 150 mg PO BID 01/05/25 Unkno wn History gabapentin 100 mg capsule 100 mg PO TID 01/11/25 Unkno wn History methylprednisolone 4 mg tablets in See Rx Instructions PO .COMPLEX 01/11/25 Unknown Rx a dose pack (Medrol (Karsten)) #21 tabs Allergy/AdvReac Type Severity Reaction Status Date / Time No Known Allergies Allergy Verified 01/11/25 17:14 Family History Other Liver cancer Ovarian cancer Surgical History History of appendectomy Social History household members: spouse Smoking Status: Current every day smoker tobacco type: cigarettes substance use type: does not use ROS ROS ED ROS Narrative Review of systems positive for right arm weakness, right sided cervical radicular pain, burning. No fevers or chills. Positive frequent falls. No injury. No alleviating factors. EXAM Physical Exam Narrative Exam Narrative: Afebrile. Vital signs noted. Nontoxic-appearing. Cardiovascular examination reveals a regular rate and rhythm. Lungs are clear to auscultation bilaterally. Abdomen soft and nontender. Examination of the right upper extremity does showgrip strength on the right 4 out of 5 as compared to 5 out of 5 on the left. Hehas full range of motion of his right upper extremity. No vertebral point tenderness or bony step-off of neck. Const Vital Signs: 01/11/25 17:14 01/11/25 17:23 01/11/25 18:14 Temperature 97.9 F Temperature Source Temporal Pulse Rate 93 78 Respiratory Rate 18 18 Respiratory Effort Normal Non-Labored Respiratory Pattern Normal Blood Pressure 146/105 H Blood Pressure Mean 118 Pulse Ox 99 97 Oxygen Delivery Method Room Air Room Air MDM MDM MDM Narrative Medical decision making narrative: I feel this is an exacerbation of his cervical radiculopathy that is known, and chronic. I do not feel differential is applicable otherwise. I reviewed his outpatient visit, and they are urgently trying to schedule surgery for him as hewas last seen on 01/05/2025, approximately 6 days ago. I discussed the patient with Dr. Villagran, who suggested either having the patient medically admitted for placement and retirement facility/rehab if he is having that frequent falls. Additionally, he suggested outpatient treatment with a Medrol Dosepak and a soft collar. In discussion with the patient and his fianc?e, he does not want to be observed for placement, but they did inquire about outpatient rehab. They were referred to orthopedics or their primary care provider regarding this. He is agreeable to Medrol Dosepak and soft collar and follow-up with orthopedic spine. I also suggested that he follow-up with his pain management physician and inquire aboutstronger pain medications. At this point in time, I do not feel he needs laboratory work or repeat imaging as he has had a recent MRI. Return instructions to the emergency department were reviewed. Patient agreeable to the plan. Disposition is discharged home in stable condition. History & Record Review Additional record(s) reviewed:: Prior outpatient record Management Discussion w/another healthcare provider: [employer] (Orthopedic spine surgery, Dr. Villagran) Discharge Plan Triage Chief Complaint: Other, Pain/Inj ED Provider: Junior Johnson Dx/Rx/DC Orders Clinical Impression: Cervical myelopathy with cervical radiculopathy, C6 radiculopathy, Right arm weakness Instructions: ED Radiculopathy, Cervical Prescriptions: New methylprednisolone [Medrol (Karsten)] 4 mg tablets,dose pack See Rx Instructions .ROUTE .COMPLEX Qty: 21 0RF Rx Instructions: for 6 days No Action albuterol sulfate 90 mcg/actuation HFA aerosol inhaler 2 puff inhalation Q4-6H PRN (Reason: dyspnea) pregabalin 150 mg capsule 150 mg PO BID gabapentin 300 mg capsule 300 mg PO BID Qty: 60 0RF gabapentin 100 mg capsule 100 mg PO TID Primary Care Provider: Makeda Hawkins Referrals: Etienne Rose MD [Med Staff - Active Staff, Pain Management] - As soon as possible Adan Villagran MD [Med Staff - Active Staff, Orthopedics] - 3-5 Days if not improving Makeda Hawkins, [employer] [Primary Care Provider, Family Practice] Activity Restrictions/Additional Instructions: Take the Medrol Dosepak as directed. Wear soft collar for support. Return withfever, new or worsening symptoms. Discussed with your primary care provider or orthopedics about outpatient rehabilitation. Print Language: Vincentian Disposition Disposition: Home, Self Care What to do if you have Problems For any increased pain, shortness of breath, bleeding, nausea or vomiting, chestpain, or any unexpected problems, contact your Primary Care Provider. Call [facility] ([phone]) or report to the closest Emergency Room. Call 911 if necessary. 01/11/25 184 <Electronically signed by Junior Johnson MD> Cosigner Signature (if applicable): CC: LUCIANO Hawkins ~ Signed [facility] Work Phone: 1(603) 795-391110-02-2025 Evaluation note* Diagnosis Onset Date Resolution Status Admit Date Cervical myelopathy with cervical radiculopathy acute January 052024 8:01am [facility] Work Phone: 1(157) 616-617108-22-2025 Radiology Diagnostic study note [facility] [address] [place], [place] [id number] Cerv Spine 2 or 3 Views MR#: [id number] Acct: [id number] Name: ANDREW MCLEAN Jr. Rep #: [id number] : 1980 M 44 From: Srinivas Guerra MD PCP: LUCIANO Peñaloza Status: REG E R Study:Cerv Spine 2 or 3 Views Date of Exam: 11/25/24 Exam# [id number] Ordering Dr: Herberth Donohue DO PROCEDURE: CERV SPINE 2 OR 3 VIEWS 11/25/2024 REASON FOR EXAM: RIGHT C6 PARESTHESIA TECHNIQUE: CERV SPINE 2 OR 3 VIEWS COMPARISON: None. FINDINGS: BONES: No fracture or focal osseous lesion. Anatomic spinal alignment. Straightening of the normal cervical lordosis. DISC/DEGENERATIVE CHANGES: Mild disc space narrowing at C5-C6. Small vertebral endplate osteophytes at several levels. SOFT TISSUES: No acute abnormality seen. RAD/Cerv Spine 2 or 3 Views IMPRESSION: 1. No acute osseous abnormality. 2. Straightening of the cervical spine, may reflect muscle spasm. 3. Mild degenerative changes. Reading Location: [facility] CC: [facility] [employer] Makeda Hawkins; Dr. 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 Rep #:[id number] : 1980 44 From: Josef Gonzalez MD PCP: LUCIANO Peñaloza Status:REG E R Location: ED HPI HPI - GI History of Present Illness Chief Complaint: Nausea/Vomiting/Diarrhea Informant: patient Narrative Narrative: 44-year-old male presenting with vomiting and diarrhea has been half a day, had 5 bouts of diarrhea, more vomiting. No blood in either 1, no melena. He had some right upper quadrant pain as well. He states actually started having a headache earlier in the morning that got worse and then the vomiting started, sort of similar to migraines that he has had the past. Prior to vomiting took some ibuprofen the headache is not as bad but is still there. He states after he took the ibuprofen, started having upper abdominal discomfort like he needed to have a bowel movement, which is when the diarrhea started, followed by the vomiting. At 1 point the abdominal pain was more significant, and then eased uplater. He had eaten some bologna earlier than this. No known sick contacts. No antibiotics recently for anything. No travel out of the area. No suspiciousfood intake. [facility] Medical History Migraines Asthma Internal hemorrhage Hypertension Home Medications ?Medication ?Instructions ?Recorded ?Last Taken ?Type hyoscyamine sulfate 0.125 mg 0.125 - 0.25 mg (1 - 2 x 0.125 mg) 10/31/24 Unknown Rx disintegrating tablet PO Q8H PRN abdominal discomf ort #20 tabs ondansetron 8 mg disintegrating 8 mg PO Q8H PRN nausea and 10/31/24 Unknown Rx tablet vomiting #15 tabs Allergy/AdvReac Type Severity Reaction Status Date / Time No Known Allergies Allergy Verified 10/30/24 22:56 Family History Other Liver cancer Ovarian cancer Surgical History History of appendectomy Social History household members: spouse Smoking Status: Current every day smoker tobacco type: cigarettes substance use type: does not use ROS ROS ED Constitutional Constitutional ED: Denies chills or fever(s) Eyes Eyes: Denies change in vision or diplopia ENT ENT ED: Denies rhinorrhea or sore throat Cardiovascular Cardiovascular: Denies chest pain or palpitations Respiratory/Chest Respiratory/Chest: Denies cough or dyspnea Gastrointestinal Gastrointestinal: Reports abdominal pain, diarrhea, nausea and vomiting; Denies hematemesis, hematochezia or melena Genitourinary Genitourinary ED: Denies dysuria or hematuria Musculoskeletal Musculoskeletal: Denies back pain or neck pain Integumentary Denies abscess or rash Neurologic Neurologic: Reports headache(s); Denies paresthesias or weakness Psychiatric Psychiatric: Denies suicidal thoughts EXAM Physical Exam Const Vital Signs: 10/30/24 22:55 10/31/24 00:55 10/31/24 02:16 Temperature 98.1 F Temperature Source Oral Pulse Rate 73 55 L 58 L Respiratory Rate 18 18 28 H Blood Pressure 159/112 H 127/82 H Blood Pressure Mean 127 97 Pulse Ox 98 98 98 Oxygen Delivery Method Room Air Room Air Room Air Positive well nourished and well developed General Appearance ED: well developed and NAD HEENT Reports moist mucous membranes normocephalic and atraumatic Eyes PERRL and EOMs intact bilaterally Neck full ROM and supple Resp normal respiratory effort and clear to auscultation bilaterally Cardio regular rate, regular rhythm and no murmurs GI non-distended GI Narrative: Tenderness right upper quadrant and epigastrium, and some mild tenderness in theleft lower quadrant. No other areas of tenderness. No guarding or rebound negative Cohn. 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 Medications helped some, but still having abdominal pain upper. I reviewed the CT images and report which I agree with, it is negative for any acute. His labs are all normal including white blood count of 6.5, liver enzymes, lipase. Urinalysis unremarkable. I did bedside ultrasound. He is tender over the gallbladder, but I do not see any shadowing stones or pericholecystic fluid. Given all the diarrhea he had, it is more suspicious that this is intestinal-related pain so I then gave him some Levsin. He said this really helped. His urine then came back negative as well. Given all of this at this time I think he can be safely discharged home. Hopefully this is all viral gastroenteritis which is certainly in the differential diagnosis. He did not have stool to provide here for us to send for an enteric panel, but if thisis a low risk diarrhea for bacterial cause. I advised him to follow-up with his doctor. We discussed reasons to return, he is asking for work note which was also given. Lab Data Attestation: I reviewed the patient's lab results. Labs: Laboratory Results - last 24 hr 10/30/24 10/31/24 23:30 00:49 WBC 6.5 RBC 5.20 Hgb 17.6 H Hct 49.4 MCV 95.0 H MCH 33.8 H MCHC 35.6 RDW Std Deviation 42.7 RDW Coeff of Sravani 12.2 Plt Count TNP MPV 12.1 H Immature Gran % (Auto) 0.500 Neut % (Auto) 51.6 Lymph % (Auto) 38.1 [place] % (Auto) 8.0 Eos % (Auto) 0.9 Baso % (Auto) 0.9 Absolute Neuts (auto) 3.4 Absolute Lymphs (auto) 2.49 Nucleated RBC % 0 Differential Comment SCANNED Platelet Estimate ADEQUATE Sodium 138 Potassium 3.4 Chloride 104 Carbon Dioxide 20.7 L Anion Gap 14 BUN 9 Creatinine 1.01 Estim Creat Clear Calc 92.36 Est GFR (MDRD) Non-Af 93 BUN/Creatinine Ratio 9.1 L Glucose 91 Calcium 9.4 Total Bilirubin 0.53 AST 20 ALT 27 Alkaline Phosphatase 61 Total Protein 7.2 Albumin 4.5 Globulin 2.7 Albumin/Globulin Ratio 1.7 Lipase 22 Urine Color Yellow Urine Clarity Clear Urine pH 6.5 Ur Specific Leblanc 1.010 Urine Protein 15 H Urine Glucose (UA) Normal Urine Ketones Negative Urine Occult Blood Negative Urine Nitrite Negative Urine Bilirubin Negative Urine Urobilinogen Normal Ur Leukocyte Esterase Negative Urine RBC 0 SEEN Urine WBC 0-5 SEEN Ur Squamous Epith Cells 0 SEEN Urine Bacteria 0 SEEN Urine Mucus 0 SEEN Radiography Diagnostic Testing: Clinical Impression(s) from Imaging Studies Abdomen/Pelvis CT 10/30/24 23:08 IMPRESSION: No acute findings. Reading Location: [place] [address] Discharge Plan Triage Chief Complaint: Nausea/Vomiting/Diarrhea ED Provider: Josef Gonzalez Dx/Rx/DC Orders Clinical Impression: Acute upper abdominal pain, Nausea vomiting and diarrhea Instructions: ED Diet Vomiting Diarrhea, ED Gastroenteritis, Viral (Adult), ED Epigastric Pain Uncertain Cause Prescriptions: New ondansetron 8 mg tablet,disintegrating 8 mg PO Q8H PRN (Reason: nausea and vomiting) Qty: 15 0RF hyoscyamine sulfate 0.125 mg tablet,disintegrating 0.125 - 0.25 mg PO Q8H PRN (Reason: abdominal discomfort) Qty: 20 0RF Discontinued ondansetron HCl 4 mg tablet 4 mg PO Q6H PRN (Reason: nausea and vomiting) Qty: 12 0RF Stand Alone Forms: ED Work / School Excuse Primary Care Provider: Makeda Hawkins Referrals: Makeda Hawkins, WARP DOFFER-C [Primary Care Provider] - 3-5 Days if not improving Print Language: Vincentian Disposition Disposition: Home, Self Care What to do if you have Problems For any increased pain, shortness of breath, bleeding, nausea or vomiting, chestpain, or any unexpected problems, contact your Primary Care Provider. Call [facility] ([phone]) or report tothe closest Emergency Room. Call 911 if necessary. 10/31/24 0302 Cosigner Signature (if applicable): CC: LUCIANO Hawkins ~ Signed [facility]07-28-2025 Radiology Diagnostic study note [facility] [address] [place] [address] Abdomen/Pelvis W IV Cont ONLY MR#: [id number] Acct: [id number] Name: ANDREW MCLEAN Jr. Rep #: [id number] : 1980 M 44 From: Fiorella Lucero MD PCP: LUCIANO Peñaloza Status: REG E R Study:Abdomen/Pelvis W IV Cont ONLY Date of E xam: 10/30/24 Exam# [id number] Ordering Dr: Bismark Gonzalez MD PROCEDURE: ABDOMEN/PELVIS W IV CONT ONLY 10/31/2024 REASON FOR EXAM: RUQ/EPIGAST PAIN, N/V/D TECHNIQUE: ABDOMEN/PELVIS W IV CONT ONLY Coronal and Sagittal reconstruction series were provided. CONTRAST: Isovue 370 VOLUME: 99 mL One or more dose reduction techniques were used (e.g., Automated exposure control, adjustment of the mA and/or kV according to patient size, use of iterative reconstruction technique. RADIATION DOSE SUMMARY: CTDlvol: 40 mGy DLP: 1312 mGycm COMPARISON: 10/15/2024 FINDINGS: Under aerated lung bases. Normal heart size. Diffuse hepatic steatosis. There are 3 liver hemangiomas, largest measures 3.6 cm. No suspicious liver lesions. Normal gallbladder, pancreas, spleen, adrenal glands. 1 mm right renal calcification. No hydronephrosis orureteral stone. Normal bladder. Normal prostate. No retroperitoneal or pelvic adenopathy. No free air. Nondistended bowel. Status post appendectomy.Diverticulosis. No acute large bowel findings. Lumbar spine degeneration. No acute abdominal wall findings. CT/Abdomen/Pelvis W IV Cont ONLY IMPRESSION: No acute findings. Reading Location: [place] CC: LUCIANO Hawkins; Dr. 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 Rep #:[id number] : 1980 44 From: Josef Gonzalez MD PCP: LUCIANO Peñaloza Status:REG E R Location: ED HPI HPI - GI History of Present Illness Chief Complaint: Nausea/Vomiting/Diarrhea Informant: patient Narrative Narrative: 44-year-old male presenting with vomiting and diarrhea has been half a day, had 5 bouts of diarrhea, more vomiting. No blood in either 1, no melena. He had some right upper quadrant pain as well. He states actually started having a headache earlier in the morning that got worse and then the vomiting started, sort of similar to migraines that he has had the past. Prior to vomiting took some ibuprofen the headache is not as bad but is still there. He states after he took the ibuprofen, started having upper abdominal discomfort like he needed to have a bowel movement, which is when the diarrhea started, followed by the vomiting. At 1 point the abdominal pain was more significant, and then eased uplater. He had eaten some bologna earlier than this. No known sick contacts. No antibiotics recently for anything. No travel out of the area. No suspiciousfood intake. [facility] Medical History Migraines Asthma Internal hemorrhage Hypertension Home Medications ?Medication ?Instructions ?Recorded ?Last Taken ?Type hyoscyamine sulfate 0.125 mg 0.125 - 0.25 mg (1 - 2 x 0.125 mg) 10/31/24 Unknown Rx disintegrating tablet PO Q8H PRN abdominal discomf ort #20 tabs ondansetron 8 mg disintegrating 8 mg PO Q8H PRN nausea and 10/31/24 Unknown Rx tablet vomiting #15 tabs Allergy/AdvReac Type Severity Reaction Status Date / Time No Known Allergies Allergy Verified 10/30/24 22:56 Family History Other Liver cancer Ovarian cancer Surgical History History of appendectomy Social History household members: spouse Smoking Status: Current every day smoker tobacco type: cigarettes substance use type: does not use ROS ROS ED Constitutional Constitutional ED: Denies chills or fever(s) Eyes Eyes: Denies change in vision or diplopia ENT ENT ED: Denies rhinorrhea or sore throat Cardiovascular Cardiovascular: Denies chest pain or palpitations Respiratory/Chest Respiratory/Chest: Denies cough or dyspnea Gastrointestinal Gastrointestinal: Reports abdominal pain, diarrhea, nausea and vomiting; Denies hematemesis, hematochezia or melena Genitourinary Genitourinary ED: Denies dysuria or hematuria Musculoskeletal Musculoskeletal: Denies back pain or neck pain Integumentary Denies abscess or rash Neurologic Neurologic: Reports headache(s); Denies paresthesias or weakness Psychiatric Psychiatric: Denies suicidal thoughts EXAM Physical Exam Const Vital Signs: 10/30/24 22:55 10/31/24 00:55 10/31/24 02:16 Temperature 98.1 F Temperature Source Oral Pulse Rate 73 55 L 58 L Respiratory Rate 18 18 28 H Blood Pressure 159/112 H 127/82 H Blood Pressure Mean 127 97 Pulse Ox 98 98 98 Oxygen Delivery Method Room Air Room Air Room Air Positive well nourished and well developed General Appearance ED: well developed and NAD HEENT Reports moist mucous membranes normocephalic and atraumatic Eyes PERRL and EOMs intact bilaterally Neck full ROM and supple Resp normal respiratory effort and clear to auscultation bilaterally Cardio regular rate, regular rhythm and no murmurs GI non-distended GI Narrative: Tenderness right upper quadrant and epigastrium, and some mild tenderness in theleft lower quadrant. No other areas of tenderness. No guarding or rebound negative Cohn. 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 Medications helped some, but still having abdominal pain upper. I reviewed the CT images and report which I agree with, it is negative for any acute. His labs are all normal including white blood count of 6.5, liver enzymes, lipase. Urinalysis unremarkable. I did bedside ultrasound. He is tender over the gallbladder, but I do not see any shadowing stones or pericholecystic fluid. Given all the diarrhea he had, it is more suspicious that this is intestinal-related pain so I then gave him some Levsin. He said this really helped. His urine then came back negative as well. Given all of this at this time I think he can be safely discharged home. Hopefully this is all viral gastroenteritis which is certainly in the differential diagnosis. He did not have stool to provide here for us to send for an enteric panel, but if this is a low risk diarrhea for bacterial cause. I advised him to follow-up with his doctor. We discussed reasons to return, he is asking for work note which was also given. Lab Data Attestation: I reviewed the patient's lab results. Labs: Laboratory Results - last 24 hr 10/30/24 10/31/24 23:30 00:49 WBC 6.5 RBC 5.20 Hgb 17.6 H Hct 49.4 MCV 95.0 H MCH 33.8 H MCHC 35.6 RDW Std Deviation 42.7 RDW Coeff of Sravani 12.2 Plt Count TNP MPV 12.1 H Immature Gran % (Auto) 0.500 Neut % (Auto) 51.6 Lymph % (Auto) 38.1 Neosho % (Auto) 8.0 Eos % (Auto) 0.9 Baso % (Auto) 0.9 Absolute Neuts (auto) 3.4 Absolute Lymphs (auto) 2.49 Nucleated RBC % 0 Differential Comment SCANNED Platelet Estimate ADEQUATE Sodium 138 Potassium 3.4 Chloride 104 Carbon Dioxide 20.7 L Anion Gap 14 BUN 9 Creatinine 1.01 Estim Creat Clear Calc 92.36 Est GFR (MDRD) Non-Af 93 BUN/Creatinine Ratio 9.1 L Glucose 91 Calcium 9.4 Total Bilirubin 0.53 AST 20 ALT 27 Alkaline Phosphatase 61 Total Protein 7.2 Albumin 4.5 Globulin 2.7 Albumin/Globulin Ratio 1.7 Lipase 22 Urine Color Yellow Urine Clarity Clear Urine pH 6.5 Ur Specific Leblanc 1.010 Urine Protein 15 H Urine Glucose (UA) Normal Urine Ketones Negative Urine Occult Blood Negative Urine Nitrite Negative Urine Bilirubin Negative Urine Urobilinogen Normal Ur Leukocyte Esterase Negative Urine RBC 0 SEEN Urine WBC 0-5 SEEN Ur Squamous Epith Cells 0 SEEN Urine Bacteria 0 SEEN Urine Mucus 0 SEEN Radiography Diagnostic Testing: Clinical Impression(s) from Imaging Studies Abdomen/Pelvis CT 10/30/24 23:08 IMPRESSION: No acute findings. Reading Location: [place] [address] Discharge Plan Triage Chief Complaint: Nausea/Vomiting/Diarrhea ED Provider: Josef Gonzalez Dx/Rx/DC Orders Clinical Impression: Acute upper abdominal pain, Nausea vomiting and diarrhea Instructions: ED Diet Vomiting Diarrhea, ED Gastroenteritis, Viral (Adult), ED Epigastric Pain Uncertain Cause Prescriptions: New ondansetron 8 mg tablet,disintegrating 8 mg PO Q8H PRN (Reason: nausea and vomiting) Qty: 15 0RF hyoscyamine sulfate 0.125 mg tablet,disintegrating 0.125 - 0.25 mg PO Q8H PRN (Reason: abdominal discomfort) Qty: 20 0RF Discontinued ondansetron HCl 4 mg tablet 4 mg PO Q6H PRN (Reason: nausea and vomiting) Qty: 12 0RF Stand Alone Forms: ED Work / School Excuse Primary Care Provider: Makeda Hawkins Referrals: Makeda Hawkins NP-C [Primary Care Provider] - 3-5 Days if not improving Print Language: Vincentian Disposition Disposition: Home, Self Care What to do if you have Problems For any increased pain, shortness of breath, bleeding, nausea or vomiting, chestpain, or any unexpected problems, contact your Primary Care Provider. Call [facility] ([phone]) or report to the closest Emergency Room. Call 911 if necessary. 10/31/24 0302 <Electronically signed by Josef Gonzalez MD> Cosigner Signature (if applicable): CC: LUCIANO Hawkins ~ Signed [facility] Work Phone: [phone]) 996-403207-14-2025 Hospital Discharge instructions Patient Education 10/17/2024 14:43:28 Chest Pain, [...] the signs of a serious problem take moretime to appear. Many problems not related to [...] Swelling, pain or redness in one leg 5703-6232 [employer]. [address] [place] [address]. All rights reserved. This information is not intended as a substitute for professional medical care. Always follow yourhealthcare professional's instructions. 10/17/2024 14:43:18 Dizziness, Uncertain Cause Dizziness (Uncertain Cause) Dizziness is a common symptom. It may be described as lightheadedness, spinning, or feeling like you are going to faint. Dizziness can have many causes. Be sure to tell the healthcare provider about: All medicines you take, including prescription, nrzh-irv-hgzpkxj, herbs, and supplements Any other symptoms you [...] Chest, arm, neck, back, or jaw pain 3106-[address] [employer] [place] [address]. All rights reserved. This information is not intended as a substitute for professional medical care. Always follow yourhealthcare professional's instructions. 10/17/2024 14:43:09 Headache, Unspecified Headache, Unspecified A number of things can cause headaches. The cause of your headache isn t clear. But it doesn t seemto be a sign of any serious illness. [...] clear why migraines occur, but certain things called" triggers" can raise the risk of having a [...] face You have trouble talking or seeing 7184-2105 [employer]. [address] [place] [address], [place] [address]. All rights reserved. This information is not intended as a substitute for professional medical care. Always follow yourhealthcare professional's instructions. Follow Up Care 10/17/2024 12:06:58 With:Call Physician Referral Address:Unknown When:2-4 days Comments:Schedule appointment for close follow-up and to establish a primary care doctor.Use Tylenol, Advil or Aleve for headaches as needed.Use meclizine as prescribed for dizziness as needed.Return to the ED if symptoms worsen. [facility] 07-14-2025 Note Discharge Instructions Thank you for allowing [facility] to assist you with your healthcare needs. The following is importantdischarge information regarding your hospital visit. Diagnosis from [...] and or supplements as they may interact withyour home medications. What How Much When Instructions [...] may report side effects to FDA at 9-380-LEQ-0875. What other drugs will affect meclizine? Using [...] drugs may affect meclizine, including prescription and yaev-tnr-lexcalg medicines, vitamins, and herbal products. Tell your [...] to ensure that the information provided by [employer]. ('[employer]') is accurate, up-to-date, and complete, but no guarantee is made to that effect. Drug information contained herein may be time sensitive. [employer] ([employer]) information has been compiled for use by healthcare practitioners and consumers in the [place] and therefore [employer]um does not warrant that uses outside of the [place] are appropriate, unless specifically indicated otherwise. [employer] drug information does not endorse drugs, diagnose patients or recommend therapy. [employer] drug information isan informational resource designed to assist licensed healthcare practitioners in caring for their p atients and/or to serve consumers viewing this service as a supplement to, and not a substitute for, the expertise, skill, knowledge and judgment of healthcare practitioners. The absence of a warningfor a given drug or drug combination in no way should be construed to indicate that the drug or drug combination is safe, effective or appropriate for any given patient. [facility] does not assume any responsibility for any aspect of healthcare administered with the aid of information [facility] provides. The information contained herein is not intended to cover all possible uses, directions, precautions, warnings, drug interactions, allergic reactions, or adverse effects. If you have questions about the drugs you are taking, check with your doctor, nurse or pharmacist. Copyright 9658-6159 [employer] [facility]. Version: 8.02. Revision Date: 08/05/2024. Education Materials Uncertain Causes of Chest Pain Chest pain can happen for a number of reasons. Sometimes the cause can't be determined. If your condition does not seem serious, and your pain does not appear to be coming from your heart, your healthcare provider may recommend watching it closely. Sometimes the signs of a serious problem take moretime to appear. Many problems not related to [...] Swelling, pain or redness in one leg 8041-2239 [employer]. [address] [place] [address], [place] [address]. All rights reserved. This information is not intended as a substitute for professional medical care. Always follow yourhealthcare professional's instructions. Dizziness (Uncertain Cause) Dizziness is a common symptom. It may be described as lightheadedness, spinning, or feeling like you are going to faint. Dizziness can have many causes. Be sure to tell the healthcare provider about: All medicines you take, including prescription, tdaw-roz-wdqrfqb, herbs, and supplements Any other symptoms you [...] Chest, arm, neck, back, or jaw pain 4021-57[address] [employer]. [address] [place] [address], [place] [address]. All rights reserved. This information is not intended as a substitute for professional medical care. Always follow yourhealthcare professional's instructions. Headache, Unspecified A number of things can cause headaches. The cause of your headache isn t clear. But it doesn t seemto be a sign of any serious illness. [...] clear why migraines occur, but certain things called" triggers" can raise the risk of having a [...] face You have trouble talking or seeing 5390-3558 [employer]. [address] [place] [address], [place] [address]. All rights reserved. This information is not intended as a substitute for professional medical care. Always follow yourhealthcare professional's instructions. Additional Information VACCINATE! IT SAVES LIVES! Members of the community who have not yet received the COVID-19 vaccine and would like to receive it can visit one of [facility] vaccine clinics. There are many vaccine clinic locations within the [facility]. For locations and available times, please visit www.gettheshot.coronavirus.[place].gov/. It is important to note that some COVID mobile vaccine clinics are held outdoors and may be canceled in rainy or stormy conditions. To learn more about pediatric vaccinations (ages 5-11), we invite you to visit the [facility] webpage. https://www.[facility].org/pages/9180-Asesw-Zymxebhzygr-Rwizearaan-Qjjjv-Tum stions.htmlTo learn more about the COVID-19 vaccine, we invite you to visit the CDC website for a list of frequently asked questions. https://www.cdc.gov/coronavirus/2019-ncov/vaccines/faq.html [facility] Patient Portal Access Instructions: Stay connected with your healthcare team and access your personal medical information anytime with the [facility] Patient Portal. If you would like a full copy of your medical records please contact the [facility] Medical Records Department Thursday through Thursday between 8a.m. and 4:30p.m. Please follow the directions below to access the portal: 1.Access the email account you provided upon registration to the [facility].2.Look for an invitation email from [facility].3.Open the email and access the invitation link: Accept Invitation to [employer]4.Fill in the required dumont to create your account. Sign into [email or web address] with your username and password that you [...] you will allow to register on the [facility] Patient Portal for access to your information. You can also access the [employer] Patient Portal on the [employer]. Simply click on "Health Records" under "[employer]" and then click on the [employer] logo. HOW TO SAFELY DISPOSE OF PRESCRIPTION MEDICATIONS Please use one of the following methods to safely dispose of your unused medications. 1.Use a drug disposal kit: the drug disposal pouch allows you to safely discard your old and unuseddrugs. Ask your nurse to give you one when you are discharged.2.Visit a local take-back location: Many local pharmacies and police departments have programs that collect old and unwanted prescriptiondrugs. Call your local pharmacy or go to http://Atempo.Echodio/1L8Bx6d to find one close to you.3.Make use of household items: Use cat litter or old coffee grounds to dispose medications if other options arenot available. Mix your drugs with these household products, seal them in an airtight container andthrow it into the garbage. Call [facility]: [phone] to be sure your drugs can be [...] drowsiness, such as benzodiazepines, also known as benzos,including diazepam and alprazolam, muscle relaxants or sleep aids. Never sell or share prescriptionopioids. This is illegal. Store opioids in a [...] been reviewed and explained to me and IPABLO DALE R understand my current condition and have read and understand these discharge instructions. I have received a written copy of the plan/instructions. If I have questions, I am aware that I should contact my d octor. Patient/Outreach Assistant Signature: Date/Time: Relationship to Patient: Witness Name/Signature: Date/Time: [facility]07-14-2025 Note* Exam Date Time Procedure Performing Provider Status 10/17/24 1:[address] Angiography Neck w/ Contrast HUDSON SHAY MD; Auth (Verified) [id number] ORIGINAL EXAMINATION: CTA neck: TECHNIQUE: Contiguous spiral [...] Sign Date: 10/17/2024 1:48:02 PM Ordering Provider: [facility]07-14-2025 Note* Exam Date Time Procedure Performing Provider Status 10/17/24 1:[address] Angiography Head w/ Contrast HUDSON SHAY MD; Auth (Verified) [id number] ORIGINAL EXAMINATION: CT Angiogram of the head [...] Date: 10/17/2024 1:51:26 PM Ordering Provider: DAYAN [facility]07-14-2025 Note* Exam Date Time Procedure Performing Provider Status 10/17/24 1:[address] Angiography Chest w/ Contrast ARNOLD DOWELL MD; Auth (Verified) [id number] ORIGINAL EXAMINATION: CTA OF THE without then [...] 10/17/2024 2:34:48 PM Ordering Provider: DAYAN KIDD [facility]07-14-2025 Note* Exam Date Time Procedure Performing Provider Status 10/17/24 12:24 PM EKG [ED AOH] - CV PRO QUINONES MD; Auth (Verified) ECG Final Report Sinus rhythm Electronic Signature: PRO QUINONES MD 10/17/2024 12:30:21 [facility]07-12-2025 Radiology Diagnostic study note [facility] [address] [place], [place] [address] CTA Chst, Abd, Pel W and/or WO MR#: [id number] Acct: [id number] Name: ANDREW MCLEAN Jr. Rep #: [id number] : 1980 M 44 From: Fiorella Brannon MD PCP: Care Physician,No Primary Status: REG ER Study:CTA Chst, Abd, Pel W and/or WO Date of Exam: 10/15/24 Exam# [id number] Ordering Dr: Hattie Wells DO PROCEDURE: CTA [...] THE CHEST, ABDOMEN OR PELVIS. Reading Location: [id number] CC: Dr. 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 Drink plenty of water. Stay hydrated. Warm saltwater gargles as needed. Tylenol, ibuprofen for fever pain and body aches. Available lwic-uhe-eoocexg use as directed. Zithromax once a day [...] Everywhere. * URI (Upper Respiratory Infection): Viral (Vincentian) * Acute Bronchitis or Chest Cold Care Instructions ([facility]) (Vincentian) documented in this [facility]05-24-2024 Physician Emergency department Note* Ngoc Oliveros DO - 08/28/2023 6:04 PM EDT Emergency Department Report [facility] EMERGENCY MEDICINE Service Date:.08/28/23 PCP: Ngoc Holloway Chief Complaint: Chief Complaint Patient presents with Cough Cough, sneezing, sore throat, chills, shaking and diarrhea x2 days. Pt states he just " can't shakeit." HPI Andrew Mclean is a 43 y.o. [...] sprays per nostril BID for 7 days. HSWUCXLOJRUCZHP-FAGIHSWGPJYLDRD-JBFBIPUWUECHWNGF 30-2-10 MG/5ML SYRUP Take 5 mL by [...] -- -- -- -- 1.753 m (5' 9") 08/28/23 1804 (!) 126/96 98 F (36.7 C) Oral 100 18 99 % -- Orders/Results: Orders Placed This Encounter guaiFENesin-dextromethorphan (ROBITUSSIN DM) 100-10 MG/5ML syrup 10 mL Azithromycin (ZITHROMAX) tablet 500 mg azithromycin 500 MG tablet fmstrmorbbubrhz-aoegvqmlntorisk-tfibwjtjayrgglwz 30-2-10 MG/5ML Syrup fluticasone 50 MCG/ACT Suspension [...] and needs awork note. 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 GRURECPEKESNRJK-ZHXLAHYEHTVGQWF-MCZILUWBZUIOEIBY 30-2-10 MG/5ML SYRUP Take 5 mL by mouth every 6 hours as needed for Cold Symptoms, Cough, Congestion or Rhinitis. Discontinued Medications No medications on file An After Visit Summary was printed and given to the patient with above information. . Ngoc Oliveros DO 08/28/231825 Ngoc Oliveros DO 08/28/231827 [facility]05-24-2024 Emergency department Note* Ngoc Oliveros DO - 08/28/2023 6:04 PM EDT Emergency Department Report [facility] EMERGENCY MEDIC[facility] Service Date:.08/28/23 PCP: Ngoc Holloway Chief Complaint: Chief Complaint Patient presents with Cough Cough, sneezing, sore throat, chills, shaking and diarrhea x2 days. Pt states he just " can't shakeit." HPI Andrew Mclean is a 43 y.o. [...] sprays per nostril BID for 7 days. IIBSPFSNYYNJVXV-VLWZXJSACJWURZE-QBXXCGVLNBCCPJNK 30-2-10 MG/5ML SYRUP Take 5 mL by [...] -- -- -- -- 1.753 m (5' 9") 08/28/23 1804 (!) 126/96 98 F (36.7 C) Oral 100 18 99 % -- Orders/Results: Orders Placed This Encounter guaiFENesin-dextromethorphan (ROBITUSSIN DM) 100-10 MG/5ML syrup 10 mL Azithromycin (ZITHROMAX) tablet 500 mg azithromycin 500 MG tablet ghqnuizedopxsaf-hruzxsoooiwvgbp-ridcaeqjfzpppjmv 30-2-10 MG/5ML Syrup fluticasone 50 MCG/ACT Suspension [...] and needs awork note. 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 He can go [...] sprays per nostril BID for 7 days. OHSAFUHPXEDUPJM-GXKPVZSZJLRGGSC-TAIWMNOGBHCYHFQZ 30-2-10 MG/5ML SYRUP Take 5 mL by mouth every 6 hours as needed for Cold Symptoms, Cough, Congestion or Rhinitis. Discontinued Medications No medications on file An After Visit Summary was printed and given to the patient with above information. . Ngoc Oliveros DO 08/28/231825 Ngoc Oliveros DO 08/28/231827 documented in this [facility]04-21-2024 Hospital Discharge instructions Additional Instructions Use ice to the left shoulder 4-5 times a day for approximately 20 minutes at a time. Do range of motion exercises after icing.[facility] Work Phone: [phone]) 509-646607-12-2022 Hospital Discharge instructionsAdditional Instructions The testing of your heart is normal. Your chest pain could be musculoskeletal since you have been moving furniture and I recommend ice and Tylenol as needed. Follow-up with a primary care doctor and Dr. Barfield and GI for evaluation of your rectal bleeding. Your scopes a few years ago had bleeding from the upper and lower GI tract so this needs reevaluated. Return to ER if symptoms worsen.[facility] Work Phone: Evaluation + Plan note No data available for this section [facility] Evaluation noteNo assessment information available [facility] Work Phone: Evaluation note* Diagnosis Onset Date Resolution Status Dehydration acute GI bleed acute [facility] Work Phone: Evaluation note* Diagnosis Onset Date Resolution Status Dehydration acute GI bleed acute Pancreatitis acute [facility] Work Phone: Evaluation note* Diagnosis Onset Date Resolution Status Dehydration acute GI bleed acute Pancreatitis acute GI bleed acute [facility] Work Phone: Evaluation note* Diagnosis Onset Date Resolution Status Dehydration acute GI bleed acute Pancreatitis acute Dehydration acute GI bleed acute Hypertension acute Pancreatitis acute [facility] Work Phone: Evaluation note* Diagnosis Onset Date Resolution Status GI bleed resolved Hypertension acute GI bleed resolved [facility] Work Phone: Evaluation note* Diagnosis Upper respiratory tract infection, unspecified type- Primary Bronchitis Bronchitis, not specified as acute or chronic [facility] Additional Instructions Ice area and elevate, take ibuprofen as needed for swelling and pain. Use crutches and Aircast for as long as you need, you should be able to use the crutches less or not at all after 1 or 2 weeks.[facility] Work Phone: Hospital [facility] instructionsW[facility] Work Phone: Hospital Discharge instructionsAdditional Instructions Right leg insect bite with swelling. Ultrasound negative for DVT. Do not scratch as it can make it worse. Ice if needed to help with itching. Right arm numbness C6 dermatome pattern concerns for her neuropathy. You have C5-C6 disc narrowing on the cervical x-ray. There is no weakness. Take gabapentin as prescribed follow-up with your doctor for further testing.[facility] Work Phone: Hospital Discharge instructionsAdditional Instructions Take the Medrol Dosepak as directed. Wear soft collar for support. Return with fever, new or worsening symptoms. Discussed with your primary care provider or orthopedics about outpatient rehabilitation.[facility] Work Phone: Reason for referral (narrative)No reason for referral information availableWProtestant [facility]acon[facility] Work Phone: Summary Purpose Family History No Family History Records Found Relationship Condition Age at Onset Recorded Date/T bill Not Specified Malignant neoplasm of liver Unknown Malignant neoplasm of ovary Unknown Advance Directives No Advanced Directives Records Found Advance Directive Response Recorded Date/ Time Living Will No Cindy 17th, 2022 6:21am Power of Junior Systems Engineer No September 20 6:21am Advance Directive Response Recorded Date/ Time Living Will No November 15 5:55pm Power of Junior Systems Engineer No November 15 5:55pm Advance Directive Response Recorded Date/ Time Living Will No December 02 9:59am Power of Junior Systems Engineer No December 02 9:59am Advance Directive Response Recorded Date/ Time Living Will No December 31, 2021 3:47pm Power of Junior Systems Engineer No December 3:47pm Advance Directive Response Recorded Date/ Time Living Will No December 31, 2021 9:47pm Power of Junior Systems Engineer No December 9:47pm Advance Directive Response Recorded Date/ Time Living Will No January 06 1:15am Power of Junior Systems Engineer No January 06 1:15am Advance Directive Response Recorded Date/ Time Living Will No January 06 4:05am Power of Junior Systems Engineer No January 06 4:05am Advance Directive Response Recorded Date/ Time Living Will No February 28 8:34am Power of Junior Systems Engineer No February 28, 2022 8:34am Advance Directive Response Recorded Date/ Time Living Will No March 03 7:42pm Power of Junior Systems Engineer No March 03, 2022 7:42pm Advance Directive Response Recorded Date/ Time Living Will No April 16 8:29am Power of Junior Systems Engineer No April 16, 2023 8:29am Advance Directive Response Recorded Date/ Time Living Will No July 26, 2023 12:11pm Power of Junior Systems Engineer No July 25 12:11pm Advance Directive Response Recorded Date/ Time Do you have a Healthcare Power of Junior Systems Engineer? No October 15, 2024 12:43pm Advance Directive Response Recorded Date/ Time Do you have a Healthcare Power of Junior Systems Engineer? No October 15, 2024 12:43pm Do you have a Healthcare Power of Junior Systems Engineer? No October 30, 2024 10:59pm Advance Directive Response Recorded Date/ Time Do you have a Healthcare Power of Junior Systems Engineer? No October 15, 2024 12:43pm Do you have a Healthcare Power of Junior Systems Engineer? No October 30, 2024 10:59pm Do you have a Healthcare Power of Junior Systems Engineer? No November 25, 2024 3:27pm Advance Directive Response Recorded Date/ Time Do you have a Healthcare Power of Junior Systems Engineer? No October 15, 2024 12:43pm Do you have a Healthcare Power of Junior Systems Engineer? No October 30, 2024 10:59pm Do you have a Healthcare Power of Junior Systems Engineer? No November 25, 2024 3:27pm Do you have a Healthcare Power of Junior Systems Engineer? No January 11, 2025 5:23pm Chief Complaint and Reason for Visit Chief [...] chest pain October 15, 2024 12:0 5pm Chief Complaint Admit Date chest pain October 15, 2024 12:0 5pm n/v/d October 30, 2024 10:5 5pm Chief Complaint Admit Date chest pain October 15, 2024 12:0 5pm n/v/d October 30, 2024 10:5 5pm HEPATOMEGALY, NOT ELSEWHERE CLASSIFIED A ugust 2024 1:13pm Chief Complaint Admit Date chest pain October 15, 2024 12:0 5pm n/v/d October 30, 2024 10:5 5pm HEPATOMEGALY, NOT ELSEWHERE CLASSIFIED A ugust 2024 1:13pm numbness in R arm, edema/ cellulitis Aug ust 2024 2:24pm Chief Complaint Admit Date chest pain October 15, 2024 12:0 5pm n/v/d October 30, 2024 10:5 5pm HEPATOMEGALY, NOT ELSEWHERE CLASSIFIED A ugust 2024 1:13pm numbness in R arm, edema/ cellulitis Aug ust 2024 2:24pm RLE PAIN November 25, 2024 3: 47pm CERVICAL RAD December 23, 2024 9:13am Chief Complaint Admit Date chest pain October 15, 2024 12:0 5pm n/v/d October 30, 2024 10:5 5pm HEPATOMEGALY, NOT ELSEWHERE CLASSIFIED A ugust 2024 1:13pm numbness in R arm, edema/ cellulitis Aug ust 2024 2:24pm RLE PAIN November 25, 2024 3: 47pm CERVICAL RAD December 23, 2024 9:13am CERVICAL SPINE January 05, 2025 8: 01am room 4 January 05, 2025 8: 13am Chief Complaint Admit Date chest pain October 15, 2024 12:0 5pm n/v/d October 30, 2024 10:5 5pm HEPATOMEGALY, NOT ELSEWHERE CLASSIFIED A ugust 2024 1:13pm numbness in R arm, edema/ cellulitis Nov ust 2024 2:24pm RLE PAIN November 25, 2024 3: 47pm CERVICAL RAD December 23, 2024 9:13am CERVICAL SPINE January 05, 2025 8: 01am room 4 January 05, 2025 8: 13am NECK January 11, 2025 5: 14pm Reason for Visit Admit Date Cervical myelopathy with cervical radicu lopathy January 05, 2025 8:01am Additional Source Comments (unrecognized sect ion and content) No Status Records FoundNo Status Records FoundNo Status Records FoundNo Status Records FoundNo Status Records Found INFORMATION SOURCE (unrecogn ized section and content) DATE CREATED AUTHOR 10/03/2020 [facility] ([place]) DATE CREATED AUTHOR AUTHOR'S ORGANIZ ATION 05/26/2021 [facility] [place] DATE CREATED AUTHOR AUTHOR'S ORGANIZ ATION 09/01/2023 [facility] DATE CREATED AUTHOR AUTHOR'S ORGANIZ ATION 10/24/2024 [facility] DATE CREATED AUTHOR AUTHOR'S ORGANIZ ATION 01/18/2025 [facility] Goals (unrecognized section and content) Goals may be documented in a n alternate sectionGoals may be documented in an alternate sectionGoals may be documented in an alternate sectionGoals may be documented in an alternate sectionGoals may be documented in an alternate sectionGoals may be documented in an alternate sectionGoals may be documented in an alternate section No data available for this sectionGoals may be documented in an alternate [...] Dr. Rhett Tyler DO Emergency Provider Active O[employer] Relationship Specialty Start Date End Date Ngoc Holloway DO [address] [place] [id number] PCP - General Family Medicine 08/28/23 Team Status: Active Member Role/Relationship Status Dates No Primary Care Physician Primary Care Provider Active Team Status: Inactive Member Role/Relationship Status Dates No Primary Care Physician Primary Care Provider Active Start: October 15, 2024 End: October 15, 2024 Dr. Kenny Wells DO Emergency Provider Active S tart: October 15, 2024 End: October 15, 2024 Team Status: Active Member Role/Relationship Status Dates Makeda Hawkins WARP DOFFER-C Primary Care Provider Active Team Status: Inactive Member Role/Relationship Status Dates No Primary Care Physician Primary Care Provider Active Start: October 15, 2024 End: October 15, 2024 Dr. Kenny Wells , Attending Provider Active S tart: October 15, 2024 End: October 15, 2024 Dr. Kenny Wells DO Emergency Provider Active S tart: October 15, 2024 End: October 15, 2024 Team Status: Inactive Member Role/Relationship Status Dates Makeda Hawkins WARP DOFFER-C Primary Care Provider Active Start: October 30, 2024 End: October 31, 2024 Dr. Josef Gonzalez MD Emergency Provider Active Start: October 30, 2024 End: October 31, 2024 Team Status: Inactive Member Role/Relationship Status Dates Makeda Hawkins WARP DOFFER-C Primary Care Provider Active Start: October 30, 2024 End: October 31, 2024 Dr. Josef Gonzalez MD Attending Provider Active Start: October 30, 2024 End: October 31, 2024 Dr. Josef Gonzalez MD Emergency Provider Active Start: October 30, 2024 End: October 31, 2024 Team Status: Inactive Member Role/Relationship Status Dates Makeda Hawkins WARP DOFFER-C Primary Care Provider Active Start: November 07, 2024 End: November 07, 2024 Makeda Hawkins NP-C Attending Provider Active Start: November 07, 2024 End: November 07, 2024 Makeda Hawkins WARP DOFFER-C Referring Provider Active Start: November 07, 2024 End: November 07, 2024 Team Status: Inactive Member Role/Relationship Status Dates Makeda Hawkins WARP DOFFER-C Primary Care Provider Active Start: November 25, 2024 End: November 25, 2024 Dr. Herberth Donohue DO Emergency Provider Active Start : November 25, 2024 End: November 25, 2024 Team Status: Active Member Role/Relationship Status Dates Makeda Hawkins , WARP DOFFER-C Primary care physician Active Team Status: Inactive Member Role/Relationship Status Dates No Primary Care Physician Primary care physician Activ e Start: October 15, 2024 End: October 15, 2024 Dr. Kenny Wells DO Attending physician Active Start: October 15, 2024 End: October 15, 2024 Dr. Kenny Wells DO Emergency Departmen t Physician Active Start: October 15, 2024 End: October 15, 2024 Team Status: Inactive Member Role/Relationship Status Dates Makeda Hawkins NP-C Primary care physician Active Start: October 30, 2024 End: October 31, 2024 Dr. Josef Gonzalez MD Attending physician Active Start: October 30, 2024 End: October 31, 2024 Dr. Josef Gonzalez MD Emergency Department Physician Active Start: October 30, 2024 End: October 31, 2024 Team Status: Inactive Member Role/Relationship Status Dates Makeda Hawkins NP-C Primary care physician Active Start: November 07, 2024 End: November 07, 2024 Makeda Hawkins NP-C Attending physician Active Start: November 07, 2024 End: November 07, 2024 Makeda Hawkins NP-C Referring Provider Active Start: November 07, 2024 End: November 07, 2024 Team Status: Inactive Member Role/Relationship Status Dates Makeda Hawkins NP-C Primary care physician Active Start: November 25, 2024 End: November 25, 2024 Dr. Herberth Donohue DO Attending physician Active Star t: November 25, 2024 End: November 25, 2024 Dr. Herberth Donohue DO Emergency Department Physician Active Start: November 25, 2024 End: November 25, 2024 Team Status: Active Member Role/Relationship Status Dates Dr. Adithya Valdes MD Attending physician Active Start: November 25, 2024 Dr. Herberth Donohue DO Referring Provider Active Start : November 25, 2024 Team Status: Inactive Member Role/Relationship Status Dates Makeda Hawkins NP-C Primary care physician Active Start: December 23, 2024 End: December 23, 2024 Makeda Hawkins NP-Bakari Attending physician Active Start: December 23, 2024 End: December 23, 2024 Makeda Hawkins NP-C Referring Provider Active Start: December 23, 2024 End: December 23, 2024 Team Status: Inactive Member Role/Relationship Status Dates LUCIANO Peñaloza Primary care physician Active Start: January 05, 2025 End: January 05, 2025 LUCIANO Peñaloza Referring Provider Active Start: January 05, 2025 End: January 05, 2025 ZAHRAA Celis Attending physician Active Sta rt: January 05, 2025 End: January 05, 2025 Team Status: Inactive Member Role/Relationship Status Dates LUCIANO Peñaloza Primary care physician Active Start: January 05, 2025 End: January 05, 2025 Dr. Yoshi Catalan MD Attending physician Active Start: January 05, 2025 End: January 05, 2025 Team Status: Active Member Role/Relationship Status Dates LUCIANO Peñaloza Primary care physician Active Start: January 05, 2025 LUCIANO Peñaloza Referring Provider Active Start: January 05, 2025 ZAHRAA Celis Attending physician Active Sta rt: January 05, 2025 Team Status: Inactive Member Role/Relationship Status Junior Johnson MD Emergency Department Physician Activ e Start: January 11, 2025 End: January 11, 2025 LUCIANO Peñaloza Primary care physician Active Start: January 11, 2025 End: January 11, 2025 Reason for Visit (unrecogniz ed section and content) Reason Comments Cough Cough, sneezing, sor e throat, chills, shaking and diarrhea x2 days. Pt states he just " can't shake it." Scheduled Active and Recently Administ ered Medications [...] BE BASED ON THE PRIMARY CLINICAL RECORDS. [facility]. provides no warranty or guarantee of the accuracy or completeness of information in this document.
[2025-01-18 21:39] LABS: Hemoglobin 18.7 g/dL (13.0-16.5)
--- NOTE | 2025-01-18 22:20 | EKG12_ITS ---
Test Reason : CP Blood Pressure : */* mmHG Vent. Rate : 109 BPM Atrial Rate : 109 BPM P-R Int : 182 ms QRS Dur : 80 ms QT Int : 350 ms P-R-T Axes : 59 13 40 degrees QTcB Int : 471 ms Sinus tachycardia Possible Left atrial enlargement Cannot rule out Anterior infarct , age undetermined Abnormal ECG Confirmed by LUDIVINA GUERRA, PHILLIP ([id number]), editor trade journal BRIAN CASTELLANOS ([id number]) on 01/19/2025 9:54:39 AM Referred By: WEN Confirmed By: PHILLIP FLORENCE MD
--- NOTE | 2025-01-18 22:26 | RAD_ITS ---
PROCEDURE: CHEST 1 VIEW (PORTABLE) 01/18/2025 REASON FOR EXAM: CHEST PAIN TECHNIQUE: Frontal view of the chest. COMPARISON: 04/16/2023 FINDINGS: Lungs/Pleura: Clear. No pneumothorax or sizable pleural effusion. Heart/Mediastinum: Normal in size. No vascular congestion. Bones/Soft tissues: Unremarkable. Lower cervical ACDF hardware. RAD/Chest 1 View (Portable) IMPRESSION: No acute cardiopulmonary disease. Reading Location: [id number]
--- OUTSIDE RECORDS SUMMARY | 2025-01-18 23:14 | XMS RPT_ITS | CCD ---
Author Organization [facility] Care Team Providers Care [place] Sales Agent Name Role Phone Dr. Ena Holloway Primary Care Provider Dr. Divya Nobles Emergency Provider [phone] Mandeep Siegelit Provider Dr. Mandeep Siegel Other Provider 1([facility])[phone] Lucas Barfield Other Provider 1([facility]) Dr. Kyle Ly Other Provider 1([facility])[phone] Carl EXTRA HAND, EXTRA HAND-C Zabrina Attending Provider Dr. Lucas Barfield Attending [...] Russell PHIPPS, Dr. Cox Attending Provider [place]ann[place] EXTRA HAND-C, Makeda Primary Care Provider Dr. Josef Gonzalez MD Emergency Provider Dr. Josef Gonzalez MD Attending Provider [place] EXTRA HAND-C, Makeda Attending Provider [place] EXTRA HAND-C, Makeda Referring Provider Dr. Herberth Donohue DO Emergency Provider Care Physician, No Primary Primary Care Physicia n Unavailable Russell PHIPPS, Dr. Cox Attending Physician Dr. Kenny Wells DO Emergency Department Physici an [place] EXTRA HAND-C, Makeda Primary Care Physician Dr. Josef Gonzalez MD Attending Physician Dr. Josef Gonzalez MD Emergency Department Phys ician Shruthi EXTRA HAND-C, Makeda Attending Physician Dr. Herberth Donohue DO Attending Physician Dr. Herberth Donohue DO Emergency Department Physician Keisha GUERRA, Dr. Adithya Dempsey Attending Physician Dr. Herberth Donohue DO Referring Provider Maricel Grullon Attending Physician [phone] Hossein GUERRA, Dr. Belle Attending Physician [phone] Alex GUERRA, Junior Emergency Department Physician Herberth [...] 05, 2018 12:00am February 08, 2018 1:08am [id number] 200 actuat albuterol 0.09 mg/actuat metered dose [...] oral solution (1 source) alpha-Adrenergic Agonist, Uncompetitive S-empbof-I-aspartate Receptor Antagonist, Sigma-1 Agonist Start: 08-28-2023 take 5 mL by mouth every six hours as needed chpqedqifhmmgvu-bguhmremkntpkig-maoihour thorphan 30-2-10 MG/5ML Syrup Take 5 mL [...] oral tablet (1 source) Corticosteroid Start: 01-11-2025 Quapaw (Nk) (2 sources) Start: 10-15-2024 Quapaw (Nk) Active October 15, 2024 12:00am Start: 09-20-2021 Quapaw (Nk) A ctive September 20, 2021 12:00am [...] 20 mg/ml oral suspension (1 source) Uncompetitive V-supqsr-O-aspartat e Receptor Antagonist, Sigma-1 Agonist Start: 08-28-2023 [...] Converting Enzyme Inhibitor Start: 12-02-2021 End: 05-02-2024 Lisinopril-[place] chlorothiazide 20-25 mg tablet Discontinued 1 {tbl} [...] Negative S. AUREUS S. aureus Negative Normal [facility] Comment on above: Performed By: #### L 100.0100, BTSPAT, L501.5200, L501.9985, M100.651 #### [facility] [address] [place], [address] 12 Lead EKGon 01-16-2025 12 Lead EKG [facility] Cardiovascular Services [address] [place] [address] 12 Lead EKG 01/16/25 0836 MR#: [id number] Acct: [id number] Name: ANDREW MCLEAN Jr. Rep #: [id number] : 1980 45 From: Yoshi Catalan MD Attending Dr: Dr. Adan Villagran MD Status: PRE [facility] Ordering Dr: Adan Villagran MD Date: 01/16/25 Location: [facility] Sex: M C Admitted: [...] ECG Confirmed by YOSHI CATALAN MD ([id number]), photo editor BRIAN CASTELLANOS ([id number]) on 01/17/2025 7:36:35 AM Referred By: Adan Villagran Confirmed By: YOSHI CATALAN MD 01/17/25 0736 Date Yoshi Catalan MD CC: LUCIANO Hawkins; Dr. Adan Villagran MD Signed Normal [facility] CBC W/Diff, Automatedon 01-04 Absolute Lymph 3.21 X10 3/uL Normal 0.83-4.51 [facility] Comment on above: Performed By: #### L 100.0100, BTSPAT, L501.5200, L501.9985, M100.651 #### [facility] [address] [place], [address] Absolute Neut 4.5 X10 3/uL Normal 2.0-7.7 [facility] Comment on above: Performed By: #### L 100.0100, BTSPAT, L501.5200, L501.9985, M100.651 #### [facility] [address] [place], [address] Basophils/100 WBC (Bld) 1.2 % High 0-1 [facility] Comment on above: Performed By: #### L 100.0100, BTSPAT, L501.5200, L501.9985, M100.651 #### [facility] [address] [place], [address] Eosinophils/100 WBC (Bld) 1.8 % Normal 0-5 [facility] Comment on above: Performed By: #### L 100.0100, BTSPAT, L501.5200, L501.9985, M100.651 #### [facility] [address] [place], [address] Erythrocyte distribution width (RBC) [Ratio] 12.0 % Normal 11.6-14.6 [facility] Comment on above: Performed By: #### L 100.0100, BTSPAT, L501.5200, L501.9985, M100.651 #### [facility] [address] [place], [address] Hematocrit (Bld) [Volume fraction] 49.9 % Normal 40-54 [facility] Comment on above: Performed By: #### L 100.0100, BTSPAT, L501.5200, L501.9985, M100.651 #### [facility] [address] [place], [address] Hemoglobin (Bld) [Mass/Vol] 17.7 g/dL High 13.0-16.5 [facility] Comment on above: Performed By: #### L 100.0100, BTSPAT, L501.5200, L501.9985, M100.651 #### [facility] [address] [place], [address] IG% 0.900 Normal 0.0-0.9 [facility] Comment on above: Result Comment: IG% - Immature Granulocytes (promyelocytes, myelocytes and metamyelocytes) > 1% indicates that a LEFT SHIFT is Present. Performed By: #### L 100.0100, BTSPAT, L501.5200, L501.9985, M100.651 #### [facility] [address] [place], [address] Lymphocytes/100 WBC (Bld) 38.0 % Normal 19-41 [facility] Comment on above: Performed By: #### L 100.0100, BTSPAT, L501.5200, L501.9985, M100.651 #### [facility] [address] [place], [address] MCH (RBC) [Entitic mass] 34.2 pg High 27.0-32.0 [facility] Comment on above: Performed By: #### L 100.0100, BTSPAT, L501.5200, L501.9985, M100.651 #### [facility] [address] [place], [address] MCHC (RBC) [Mass/Vol] 35.5 g/dL Normal 32-36 [facility] Comment on above: Performed By: #### L 100.0100, BTSPAT, L501.5200, L501.9985, M100.651 #### [facility] [address] [place], [address] MCV (RBC) [Entitic vol] 96.3 fL High 80-94 [facility] Comment on above: Performed By: #### L 100.0100, BTSPAT, L501.5200, L501.9985, M100.651 #### [facility] [address] [place], [address] Monocytes/100 WBC (Bld) 5.2 % Normal 0-10 [facility] Comment on above: Performed By: #### L 100.0100, BTSPAT, L501.5200, L501.9985, M100.651 #### [facility] [address] [place], [address] Neutrophils/100 WBC (Bld) 52.9 % Normal 47-70 [facility] Comment on above: Performed By: #### L 100.0100, BTSPAT, L501.5200, L501.9985, M100.651 #### [facility] [address] [place], [address] Nucleated RBC (Bld) [#/Vol] 0 10*3/uL Normal 0-5 [facility] Comment on above: Performed By: #### L 100.0100, BTSPAT, L501.5200, L501.9985, M100.651 #### [facility] [address] [place], [address] Platelet mean volume (Bld) [Entitic vol] 11.9 fL Normal 6.2-12.0 [facility] Comment on above: Performed By: #### L 100.0100, BTSPAT, L501.5200, L501.9985, M100.651 #### [facility] [address] [place], [address] Platelets (Bld) [#/Vol] 203 10*3/uL Normal 150-450 [facility] Comment on above: Performed By: #### L 100.0100, BTSPAT, L501.5200, L501.9985, M100.651 #### [facility] [address] [place], [address] RBC (Bld) [#/Vol] 5.18 10*6/uL Normal 4.6-6.2 [facility] Comment on above: Performed By: #### L 100.0100, BTSPAT, L501.5200, L501.9985, M100.651 #### [facility] [address] [place], [address] RDW SD 42.9 fl Normal 35.1-43.9 [facility] Comment on above: Performed By: #### L 100.0100, BTSPAT, L501.5200, L501.9985, M100.651 #### [facility] [address] [place], [address] WBC (Bld) [#/Vol] 8.5 10*3/uL Normal 4.4-11.0 [facility] Comment on above: Performed By: #### L 100.0100, BTSPAT, L501.5200, L501.9985, M100.651 #### [facility] [address] [place], [address] Hemoglobin A1con 01-16-2025 HbA1c (Bld) [Mass fraction] 5.2 % Normal <=5.6 [facility] Comment on above: Result Comment: Norm al < 5.7 % Prediabetic 5.7 - 6.4 % Diabetic >or= 6.5 % Please note range changes. Performed By: #### L 100.0100, BTSPAT, L501.5200, L501.9985, M100.651 #### [facility] [address] [place], [address] Magnesiumon 01-16-2025 Magnesium [Mass/Vol] 2.4 mg/dL High 1.5-2.2 [facility] Comment on above: Performed By: #### L 100.0100, BTSPAT, L501.5200, L501.9985, M100.651 #### [facility] [address] [place], [place], [address] Orthopedic Visit Reporton Orthopedic Visit Report [facility] [address] [facility] [address] [place] [address] OFFICE VISIT Date of Service: 01/16/25 MR#: [id number] Acct: [id number] Name: ANDREW MCLEAN Jr. Rep #: [id number] : 1980 Provider: Dr. Adan Villagran MD Age/Sex: 45/M [place] [facility] [place] Status: Signed Intake Vital Signs 01/11/25 17:14 [...] and the decisions made by me, Dr. Adna Villagran MD 01/16/25 9769. Part of today???s visit was documented by [...] Assessment a (more content not included)... Normal [facility] Type AND Screen - PAT ONLYon 01-16-2025 Ab SCREEN GEL Negative Normal [facility] Comment on above: Order Comment: Surge ry Date: 01/18/25 Reason for Laboratory Test PREOP [id number] N/A N N S CERVICAL FUSION Performed By: #### L 100.0100, BTSPAT, L501.5200, L501.9985, M100.651 #### [facility] [address] [facility] [place], [address] Emergency Department Summary on 01-11-2025 Emergency Department Summary [facility] Medical Records Department [address] [place] [address] Emergency Department Summary 01/11/25 MR#: [id number] Acct: [id number] Name: ANDREW MCLEAN . Rep #: [id number] : 1980 45 From: Junior Johnson MD [...] needs to come to the emergency department. 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 Normal [facility] Cerv Spine 2 or 3 Viewson Cerv Spine 2 or 3 Views [facility] Imaging Services [address] [place] [address] Cerv Spine 2 or 3 Views MR#: [id number] Acct: [id number] Name: ANDREW MCLEAN Jr. Rep #: [id number] : 1980 M 44 From: Onel Wylie MD PCP: LUCIANO Peñaloza Status: DEP AMB Study: Cerv Spine 2 or 3 Views Date of Exam: 01/05/25 Exam# [id number] Ordering Dr: Maricel Mcintyre PROCEDURE: CERV SPINE [...] Spondylosis. No visualized instability. Disclaimer: Reading Location: [id number] CC: EXTRA HAND-C Makeda Hawkins; ZAHRAA Celis Event Executive: Signed Normal [facility] Orthopedic Visit Reporton Orthopedic Visit Report [facility] [address] [place] [address] [place] [address] OFFICE VISIT Date of Service: 01/05/25 MR#: [id number] Acct: [id number] Name: ANDREW MCLEAN JrPing Rep #: [id number] : 1980 Provider: ZAHRAA Celis Age/Sex: 44/M [place] [facility] [place] Status: Signed Intake Vital Signs 11/25/24 14:25 01/05/25 08:05 Height 5 ft 9 in 5 ft 9 in Weight: 202 lb BMI 29.8 Intake Visit Reasons: CERVICAL SPINE Chief Complaint: cervical spine Accompanied by: Significant Other Is patient in pain?: Yes (cervical spine) Pain scale (1-10): 7 Allergies No Known Allergies Allergy (Verified 01/05/25 08:08) [facility] Medical History Migraines Asthma Internal hemorrhage [...] the upper extremities shows grade 4 right 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 Normal [facility] Magnetic resonance imaging r eportOrdered By: Rose Mesa on 12-24-2024 Study report [facility] Imaging Services [address] [place] [address] Spine Cervical (Routine) MR#: [id number] Acct: [id number] Name: PABLOANDREW Jr. Rep #: [id number] : 1980 M 44 From: Neri Mesa MD PCP: Makeda Hawkins, EXTRA HAND-C Status: REG C Study:Spine Cervical (Routine) Date of Exam: 12/23/24 Exam# [id number] Ordering Dr: Makeda Hawkins PROCEDURE: SPINE CERVICAL [...] reflect an atypical osseous hemangioma. Reading Location: [id number] CC: LUCIANO Hawkins ~ Event Executive: Signed [facility] Spine Cervical (Routine)on 0 12-23-2024 Spine Cervical (Routine) [facility] Imaging Services [address] [place] [address] Spine Cervical (Routine) MR#: [id number] Acct: [id number] Name: ANDREW MCLEAN Jr. Rep #: [id number] : 1980 M 44 From: Rose Mesa MD PCP: LUCIANO Peñaloza Status: REG CLI Study: Spine Cervical (Routine) Date of Exam: Exam# [id number] Ordering Dr: Makeda Hawkins PROCEDURE: SPINE CERVICAL [...] reflect an atypical osseous hemangioma. Reading Location: [facility] CC: LUCIANO Hawkins Event Executive: Signed Normal [facility] Cerv Spine 2 or 3 Viewson Cerv Spine 2 or 3 Views [facility] Imaging Services [address] [place] [address] Cerv Spine 2 or 3 Views MR#: [id number] Acct: [id number] Name: ANDREW MCLEAN . Rep #: [id number] : 1980 M 44 From: Lucinda Guerra MD PCP: LUCIANO Peñaloza Status: REG ER Study: Cerv Spine 2 or 3 Views Date of Exam: 11/25/24 Exam# [id number] Ordering Dr: Herberth Donohue DO PROCEDURE: CERV [...] spasm. 3. Mild degenerative changes. Reading Location: [id number] CC: LUCIANO Hawkins; Dr. Herberth Donohue DO Event Executive: Signed Normal [facility] Emergency Department Summary on 11-25-2024 Emergency Department Summary [facility] Medical Records Department [address] [place] [address] Emergency Department Summary 11/25/24 MR#: [id number] Acct: [id number] Name: ANDREW MCLEAN . Rep #: [id number] : 1980 44 From: Herberth Sharpe PCP: LUCIANO Peñaloza Status:DEP ER Location: ED HPI History of Present Illness Chief Complaint: Numb/Ting Informant: patient and spouse/S.O. Narrative Narrative: 2-week history of numbness down the right arm to his thumb and at the scapula. No pain no weakness. Is vzakn-skgr-cafltyts. Denies neck pain. No history of similar. [...] Clinical diagn (more content not included)... Normal [facility] Venous Duplex US, Unilateral on 11-25-2024 Venous Duplex US, Unilateral [facility] Cardiovascular Services [address] [address] Venous Duplex US, Unilateral 11/25/24 1547 MR#: [id number] Acct: [id number] Name: ANDREW MCLEAN Jr. Rep #: [id number] : 1980 44 From: Adithya Valdes MD [...] RVT 11/25/241655 Date Adithya Valdes MD CC: EXTRA HAND-Bakari Hawkins; Dr. Herberth Le, DO Date Dictated: 11/25/24 1547 Date Transcribed: 11/25/24 1656 Event Executive: Signed Normal [facility] Magnetic resonance imaging r eportOrdered By: Sandra Earl on 11-09-2024 Study report [facility] Imaging Services [address] [place] [address] MRI Abd WITH and W/O Contrast MR#: [id number] Acct: [id number] Name: ANDREW MCLEAN Jr. Rep #: [id number] : 1980 M 44 From: Elijah Earl MD PCP: LUCIANO Peñaloza Status: REG C LI Study:MRI Abd WITH and W/O Contrast Date of E xam: 11/07/24 Exam# [id number] Ordering Dr: Makeda Hawkins PROCEDURE: MRI ABD [...] masses as detailed, possibly hemangiomata. Reading [facility] CC: LUCIANO Hawkins ~ Event Executive: Signed [facility] MRI Abd WITH and W/O Contras ton 11-07-2024 MRI Abd WITH and W/O Contrast [facility] Imaging Services [address] [place] [address] MRI Abd WITH and W/O Contrast MR#: [id number] Acct: [id number] Name: ANDREW MCLEAN Jr. Rep #: [id number] : 1980 M 44 From: Sandra segovia MD PCP: LUCIANO Peñaloza Status: REG CLI Study: MRI Abd WITH and W/O Contrast Date of Exam: Exam# [id number] Ordering Dr: Makeda Hawkins PROCEDURE: MRI ABD [...] masses as detailed, possibly hemangiomata. Reading Location: [place] [address] CC: LUCIANO Hawkins Event Executive: Signed Normal [facility] Bilirubin Test strip Ql (U)O rdered By: Josef Gonzalez on 10-31-2024 Bilirubin Ql (U) Negative Negative [facility] CBC W/Diff, Automatedon 10-05 PLT EST ADEQUATE Normal ADEQ [facility] Comment on above: Performed By: #### L 100.0100, BTSPAT, L501.5200, L501.9985, M100.651 #### [facility] [address] [place], [address] SMEAR COMMENT SCANNED Normal [facility] Comment on above: Performed By: #### L 100.0100, BTSPAT, L501.5200, L501.9985, M100.651 #### [facility] [address] [place], [address] Comprehensive Metabolic Prof ilon 10-31-2024 Albumin [Mass/Vol] 4.5 g/dL Normal 3.5-5.0 [facility] Comment on above: Performed By: #### L 100.0100, BTSPAT, L501.5200, L501.9985, M100.651 #### [facility] [address] [place], [address] Albumin/Globulin [Mass ratio] 1.7 {ratio} Normal 0.9-2.4 [facility] Comment on above: Performed By: #### L 100.0100, BTSPAT, L501.5200, L501.9985, M100.651 #### [facility] [address] [place], [address] ALK PHOS 61 U/L Normal 40-129 [facility] Comment on above: Performed By: #### L 100.0100, BTSPAT, L501.5200, L501.9985, M100.651 #### [facility] [address] [place], [address] ALT [Catalytic activity/Vol] 27 U/L Normal <=46 [facility] Comment on above: Performed By: #### L 100.0100, BTSPAT, L501.5200, L501.9985, M100.651 #### [facility] [address] [place], [address] AST [Catalytic activity/Vol] 20 U/L Normal <=37 [facility] Comment on above: Performed By: #### L 100.0100, BTSPAT, L501.5200, L501.9985, M100.651 #### [facility] [address] [place], [address] Bilirubin [Mass/Vol] 0.53 mg/dL Normal 0.00-1.30 [facility] Comment on above: Performed By: #### L 100.0100, BTSPAT, L501.5200, L501.9985, M100.651 #### [facility] [address] [place], [address] BUN/CRE 9.1 RATIO Low 10-20 [facility] Comment on above: Performed By: #### L 100.0100, BTSPAT, L501.5200, L501.9985, M100.651 #### [facility] [address] [place], [address] Calcium [Mass/Vol] 9.4 mg/dL Normal 7.6-11.0 [facility] Comment on above: Performed By: #### L 100.0100, BTSPAT, L501.5200, L501.9985, M100.651 #### [facility] [address] [place], [address] Chloride [Moles/Vol] 104 mmol/L Normal 98-108 [facility] Comment on above: Performed By: #### L 100.0100, BTSPAT, L501.5200, L501.9985, M100.651 #### [facility] [address] [place], [address] CO2 [Moles/Vol] 20.7 mmol/L Low 21.0-32.0 [facility] Comment on above: Performed By: #### L 100.0100, BTSPAT, L501.5200, L501.9985, M100.651 #### [facility] [address] [place], [address] Creatinine [Mass/Vol] 1.01 mg/dL Normal 0.70-1.20 [facility] Comment on above: Performed By: #### L 100.0100, BTSPAT, L501.5200, L501.9985, M100.651 #### [facility] [address] [place], [address] ECRCL 92.36 ml/min Normal 50-250 [facility] Comment on above: Performed By: #### L 100.0100, BTSPAT, L501.5200, L501.9985, M100.651 #### [facility] [address] [place], [address] GAP 14 Normal 5-15 [facility] Comment on above: Performed By: #### L 100.0100, BTSPAT, L501.5200, L501.9985, M100.651 #### [facility] [address] [place], [address] GFR/1.73 sq M.predicted among non-blacks MDRD (S/P/Bld) [Vol rate/Area] 93 mL/min/{1.73_m2} Normal >60 [facility] Comment on above: Result Comment: mL/m in/1.73m2 CKD-EPI Creatinine Equation (2020) Performed By: #### L 100.0100, BTSPAT, L501.5200, L501.9985, M100.651 #### [facility] [address] [place], [address] Globulin (S) [Mass/Vol] 2.7 g/dL Normal 2.2-4.2 [facility] Comment on above: Performed By: #### L 100.0100, BTSPAT, L501.5200, L501.9985, M100.651 #### [facility] [address] [place], [address] Glucose [Mass/Vol] 91 mg/dL Normal 70-99 [facility] Comment on above: Performed By: #### L 100.0100, BTSPAT, L501.5200, L501.9985, M100.651 #### [facility] [address] [place], [address] Potassium [Moles/Vol] 3.4 mmol/L Normal 3.3-5.1 [facility] Comment on above: Performed By: #### L 100.0100, BTSPAT, L501.5200, L501.9985, M100.651 #### [facility] [address] [place], [address] Sodium [Moles/Vol] 138 mmol/L Normal 133-145 [facility] Comment on above: Performed By: #### L 100.0100, BTSPAT, L501.5200, L501.9985, M100.651 #### [facility] [address] [place], [address] T PROT 7.2 g/dL Normal 5.9-8.4 [facility] Comment on above: Performed By: #### L 100.0100, BTSPAT, L501.5200, L501.9985, M100.651 #### [facility] [address] [place], [address] Urea nitrogen [Mass/Vol] 9 mg/dL Normal 4-19 [facility] Comment on above: Performed By: #### L 100.0100, BTSPAT, L501.5200, L501.9985, M100.651 #### [facility] [address] [place], [place], [address] Ketones Test strip Ql (U)Ord ered By: Josef Gonzalez on 10-31-2024 Ketones Ql (U) Negative Negative [facility] Lipaseon 10-31-2024 Lipase [Catalytic activity/Vol] 22 U/L Normal 13-75 [facility] Comment on above: Result Comment: Plejen mason note: LIPASE revised reference range effective 22. New Lipase methodology. Expected to produce lower values than the previous assay method. NEW Reference Range: 13 - 75 U/L Performed By: #### L 100.0100, BTSPAT, L501.5200, L501.9985, M100.651 #### [facility] [address] [place], [place], [id number] Microscopic analysis of urin e for red blood cells (RBC)Ordered By: Josef Gonzalez on 10-31-2024 Microscopic analysis of urine for red blood cells (RBC) 0 SEEN /hpf 0-5 [facility] Mucus LM Ql (Urine sed)Order ed By: Josef Gonzalez on 10-31-2024 Mucus Ql (Urine sed) 0 SEEN /hpf [facility] Nitrite Test strip Ql (U)Ord ered By: Josef Gonzalez on 10-31-2024 Nitrite Ql (U) Negative Negative [facility] Protein Test strip Ql (U)Ord ered By: Josef Gonzalez on 10-31-2024 Protein Ql (U) 15 mg/dl High Negative [facility] Squamous epithelial cells de tection in urine sediment by light microscopyOrdered By: Josef Gonzalez on 10-31-2024 Epithelial cells.squamous LM Ql (Urine sed) 0 SEEN /hpf 0-5 [facility] Urinalysis, Completeon 10-31 WBC 0-5 SEEN Normal 0-5 [facility] Comment on above: Order Comment: CLEAN CATCH Performed By: #### L [id number] #### [facility] [address] [place], [address] BILIRUBIN URINE Negative Normal Negative [facility] Comment on above: Order Comment: CLEAN CATCH Performed By: #### L 400.0001 #### [facility] [address] [place], [address] Clarity (U) Clear Normal Clear [facility] Comment on above: Order Comment: CLEAN CATCH Performed By: #### L 400.0001 #### [facility] [address] [place], [address] Color (U) Yellow Normal Yellow [facility] Comment on above: Order Comment: CLEAN CATCH Performed By: #### L [id number] #### [facility] [address] [place], [address] GLUCOSE, UR Normal Normal Normal [facility] Comment on above: Order Comment: CLEAN CATCH Performed By: #### L 400.0001 #### [facility] [address] [place], [address] KETONE UR Negative Normal Negative [facility] Comment on above: Order Comment: CLEAN CATCH Performed By: #### L 400.0001 #### [facility] [address] [place], [address] LEUK ESTERASE Negative Normal Negative [facility] Comment on above: Order Comment: CLEAN CATCH Performed By: #### L [id number] #### [facility] [address] [place], [address] Nitrite Ql (U) Negative Normal Negative [facility] Comment on above: Order Comment: CLEAN CATCH Performed By: #### L [id number] #### [facility] [address] [place], [address] OCCULT BLOOD-UR Negative Normal Negative [facility] Comment on above: Order Comment: CLEAN CATCH Performed By: #### L [id number] #### [facility] [address] [place], [address] pH UR 6.5 Normal 5.0 - 8.0 [facility] Comment on above: Order Comment: CLEAN CATCH Performed By: #### L [id number] #### [facility] [address] [place], [address] PROT DIPSTX 15 mg/dl Abnormal Negative [facility] Comment on above: Order Comment: CLEAN CATCH Performed By: #### L 400.0001 #### [facility] [address] [place], [address] SP.GR. DIPSTX 1.010 Normal 1.002-1.030 [facility] Comment on above: Order Comment: CLEAN CATCH Performed By: #### L [id number] #### [facility] [address] [place], [address] UROBILI Normal Normal Normal [facility] Comment on above: Order Comment: CLEAN CATCH Performed By: #### L [id number] #### [facility] [address] [place], [address] BACTERIA 0 SEEN Normal None Seen [facility] Comment on above: Order Comment: CLEAN CATCH Performed By: #### L [id number] #### [facility] [address] [place], [address] EPI,SQUAMOUS 0 SEEN Normal 0-5 [facility] Comment on above: Order Comment: CLEAN CATCH Performed By: #### L [id number] #### [facility] [address] [place], [address] Mucus Ql (Urine sed) 0 SEEN Normal [facility] Comment on above: Order Comment: CLEAN CATCH Performed By: #### L [id number] #### [facility] [address] [place], [address] RBC 0 SEEN Normal 0-5 [facility] Comment on above: Order Comment: CLEAN CATCH Performed By: #### L [id number] #### [facility] [address] [place], [place], [id number] Urine clarityOrdered By: Marcelo Gonzalez on 10-31-2024 Clarity (U) Clear Clear [facility] Urine color determinationOrd ered By: Josef Gonzalez on 10-31-2024 Color (U) Yellow Yellow [facility] Urine glucose detectionOrder ed By: Josef Gonzalez on 10-31-2024 Glucose Ql (U) Normal mg/dl Normal [facility] Urine leukocyte esterase det ection by dipstickOrdered By: Josef Gonzalez on 10-31-2024 Leukocyte esterase Test strip Ql (U) Negative Negative [facility] Urine pHOrdered By: Josef Gonzalez on 10-31-2024 pH (U) 6.5 [pH] 5.0 - 8.0 [facility] Urine sediment bacteria coun t by microscopy (number/high power field)Ordered By: Josef Gonzalez on 10-31-2024 Bacteria LM.HPF (Urine sed) [#/Area] 0 /[HPF] None Seen [facility] Urine specific gravity measu rementOrdered By: Josef Gonzalez on 10-31-2024 Specific gravity (U) [Rel density] 1.010 1.002-1.030 [facility] Urine urobilinogen measureme ntOrdered By: Josef Gonzalez on 10-31-2024 Urobilinogen Ql (U) Normal mg/dl Normal [facility] White blood cell countOrdere d By: Josef Gonzalez on 10-31-2024 White blood cell count 0-5 SEEN /hpf 0-5 [facility] Abdomen/Pelvis W IV Cont ONL Yon 10-30-2024 Abdomen/Pelvis W IV Cont ONLY [facility] Imaging Services [address] [place] [address] Abdomen/Pelvis W IV Cont ONLY MR#: [id number] Acct: [id number] Name: PABLOANDREW GUILLE Huston Rep #: [id number] : 1980 M 44 From: Arturo Lucero MD PCP: LUCIANO Peñaloza Status: REG ER Study: Abdomen/Pelvis W IV Cont ONLY Date of Exam: Exam# [id number] Ordering Dr: Josef Gonzalez MD PROCEDURE: ABDOMEN/PELVIS [...] ONLY IMPRESSION: No acute findings. Reading Location: [place] [address] CC: EXTRA HAND-C Makeda Hawkins; Dr. Josef Gonzalez MD Event Executive: Signed Normal [facility] Absolute lymphocyte countOrd ered By: Josef Gonzalez on 10-30-2024 Lymphocytes Auto (Unsp spec) [#/Vol] 2.49 10*3/uL 0.83-4.51 [facility] Absolute neutrophil countOrd ered By: Josef Gonzalez on 10-30-2024 Neutrophils (Bld) [#/Vol] 3.4 10*3/uL 2.0-7.7 [facility] Anion gap in Serum or Plasma Ordered By: Josef Gonzalez on 10-30-2024 Anion gap [Moles/Vol] 14 mmol/L 5-15 [facility] Automated lymphocyte count a s percentage of total leukocytesOrdered By: Josef Gonzalez on 10-30-2024 Lymphocytes/100 WBC Auto (Unsp spec) 38.1 % 19-41 [facility] BUN/creatinine ratioOrdered By: Josef Gonzalez on 10-30-2024 Urea nitrogen/Creatinine [Mass ratio] 9.1 mg/mg Low 10-20 [facility] Basophil percentageOrdered B y: Josef Gonzalez on 10-30-2024 Basophils/100 WBC (Bld) 0.9 % 0-1 [facility] Bilirubin, totalOrdered By: Josef Gonzalez on 10-30-2024 Bilirubin [Mass/Vol] 0.53 mg/dL 0.00-1.30 [facility] Blood manual differential co mment interpretation (narrative result)Ordered By: Josef Gonzalez on 10-30-2024 Manual differential comment Steve (Bld) [Interp] SCANNED [facility] Carbon dioxide, total [Moles /volume] in Central venous bloodOrdered By: Josef Gonzalez on 10-30-2024 CO2 [Moles/Vol] 20.7 mmol/L Low 21.0-32.0 [facility] Chloride assayOrdered By: Edenilson Gonzalez on 10-30-2024 Chloride [Moles/Vol] 104 mmol/L 98-108 [facility] Emergency Department Summary on 10-30-2024 Emergency Department Summary [facility] Medical Records Department [address] [place] [address] Emergency Department Summary 10/30/24 MR#: [id number] Acct: [id number] Name: ANDREW MCLEAN Rep #: [id number] : 1980 44 From: Josef Gonzalez MD [...] of the area. No suspicious food intake. 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 Medications helped some, (more content not included)... Normal [facility] Eosinophil percentageOrdered By: Josefmiah Gonzalez on 10-30-2024 Eosinophils/100 WBC (Bld) 0.9 % 0-5 [facility] Erythrocyte distribution wid th ratioOrdered By: Josef Gonzalez on 10-30-2024 Erythrocyte distribution width (RBC) [Ratio] 12.2 % 11.6-14.6 [facility] Erythrocyte distribution wid th standard deviationOrdered By: [place] Lisa on 10-30-2024 Erythrocyte distribution width (RBC) [Ratio] 42.7 fl 35.1-43.9 [facility] Glomerular filtration rate ( GFR) estimation/1.73 sq m using serum, plasma, or whole bOrdered By: Josef Gonzalez on 10-30-2024 GFR/1.73 sq M.predicted among non-blacks MDRD (S/P/Bld) [Vol rate/Area] 93 mL/min/{1.73_m2} >60 [facility] Comment on above: mL/min/1.73m2 CKD-EP I Creatinine Equation (2020) Hematocrit Auto (Bld) [Volum e fraction]Ordered By: Josef Gonzalez on 10-30-2024 Hematocrit (Bld) [Volume fraction] 49.4 % 40-54 [facility] Hemoglobin measurementOrdere d By: Josef Gonzalez on 10-30-2024 Hemoglobin (Bld) [Mass/Vol] 17.6 g/dL High 13.0-16.5 [facility] Immature granulocytes/100 WB C Auto (Bld)Ordered By: Josef Gonzalez on 10-30-2024 Immature granulocytes/100 WBC (Bld) 0.500 % 0.0-0.9 [facility] Comment on above: IG% - Immature Granu locytes (promyelocytes, myelocytes and metamyelocytes) > 1% indicates that a LEFT SHIFT is Present. Laboratory - Chemistry and C hemistry - challengeOrdered By: Josef Gonzalez on 10-30-2024 AST [Catalytic activity/Vol] 20 U/L <38 [facility] Lipase measurementOrdered By : Josef Gonzalez on 10-30-2024 Lipase [Catalytic activity/Vol] 22 U/L 13-75 [facility] Comment on above: Please note:LIPASE r evised reference range effective 22. New Lipase methodology. Expected to produce lower values than the previous assay method. NEW Reference Range: 13 - 75 U/L MCV (mean corpuscular volume ) determinationOrdered By: Josef Gonzalez on 10-30-2024 MCV (RBC) [Entitic vol] 95.0 fL High 80-94 [facility] Mean corpuscular hemoglobin (MCH) determinationOrdered By: Josef Gonzalez on 10-30-2024 MCH (RBC) [Entitic mass] 33.8 pg High 27.0-32.0 [facility] Mean corpuscular hemoglobin concentration (MCHC) determinationOrdered By: Josef Gonzalez on 10-30-2024 MCHC (RBC) [Mass/Vol] 35.6 g/dL 32-36 [facility] Mean platelet volume determi nationOrdered By: Josef Gonzalez on 10-30-2024 Platelet mean volume (Bld) [Entitic vol] 12.1 fL High 6.2-12.0 [facility] Monocyte percentageOrdered B y: Josef Gonzalez on 10-30-2024 Monocytes/100 WBC (Bld) 8.0 % 0-10 [facility] Neutrophil percentageOrdered By: Josef Gonzalez on 10-30-2024 Neutrophils/100 WBC (Bld) 51.6 % 47-70 [facility] Nucleated red blood cell per centageOrdered By: Josef Gonzalez on 10-30-2024 Nucleated RBC/100 WBC (Bld) [Ratio] 0 % 0-5 [facility] Platelet countOrdered By: Edenilson Gonzalez on 10-30-2024 Platelet count TNP [facility] Comment on above: Test not performedPl ease note: For this sample, a platelet estimate is provided rather than a platelet count due to platelet clumping. Other parameters associated with this sample are not affected by platelet clumping. If a more accurate platelet count is required, a redraw of the patient will be necessary.Previous reported result: 116 [id number] by: MARIBEL on 10/31/24:0018 AMENDED REPORT 10/31/24 0018 PLT previously reported as: 116 L K/mm3 Platelet estimateOrdered By: Josef Gonzalez on 10-30-2024 Platelets LM Ql (Bld) ADEQUATE ADEQ [facility] Potassium measurement (mass/ volume)Ordered By: Josef Gonzalez on 10-30-2024 Potassium (Unsp spec) [Mass/Vol] 3.4 mmol/L 3.3-5.1 [facility] RBC Auto (Bld) [#/Vol]Ordere d By: Josef Gonzalez on 10-30-2024 RBC (Bld) [#/Vol] 5.20 10*6/uL 4.6-6.2 [facility] Serum creatinine measurement (mass/volume)Ordered By: Josef Gonzalez on 10-30-2024 Creatinine [Mass/Vol] 1.01 mg/dL 0.70-1.20 [facility] Serum globulin measurementOr dered By: Josef Gonzalez on 10-30-2024 Globulin (S) [Mass/Vol] 2.7 g/dL 2.2-4.2 [facility] Serum glucose measurement (m ass/volume)Ordered By: Josef Gonzalez on 10-30-2024 Glucose [Mass/Vol] 91 mg/dL 70-99 [facility] Serum or plasma alanine huggins otransferase (ALT) measurementOrdered By: Josef Gonzalez on 10-30-2024 ALT [Catalytic activity/Vol] 27 U/L <47 [facility] Serum or plasma albumin zo urement (mass/volume)Ordered By: Josef Gonzalez on 10-30-2024 Albumin [Mass/Vol] 4.5 g/dL 3.5-5.0 [facility] Serum or plasma albumin/glob ulin mass ratioOrdered By: Josef Gonzalez on 10-30-2024 Albumin/Globulin [Mass ratio] 1.7 {ratio} 0.9-2.4 [facility] Serum or plasma alkaline cy sphatase measurementOrdered By: Josef Gonzalez on 10-30-2024 ALP [Catalytic activity/Vol] 61 U/L 40-129 [facility] Serum or plasma calcium zo urement (mass/volume)Ordered By: Josef Gonzalez on 10-30-2024 Calcium [Mass/Vol] 9.4 mg/dL 7.6-11.0 [facility] Serum or plasma urea nitroge n measurement (mass/volume)Ordered By: Josef Gonzalez on 10-30-2024 Urea nitrogen [Mass/Vol] 9 mg/dL 4-19 [facility] Sodium levelOrdered By: Donnie Gonzalez on 10-30-2024 Sodium [Moles/Vol] 138 mmol/L 133-145 [facility] Total proteinOrdered By: Marcelo Gonzalez on 10-30-2024 Protein [Mass/Vol] 7.2 g/dL 5.9-8.4 [facility] White blood cell (WBC) count Ordered By: Josef Gonzalez on 10-30-2024 WBC (Bld) [#/Vol] 6.5 10*3/uL 4.4-11.0 [facility] .Auto Diffon 10-17-2024 Basophil, Absolute 0.0 10 3/mcL Normal 0.0-0.3 [facility] Comment on above: Performed By: #### A KIMBERLY, ADIFF, APTT, MDW, GFR, CMP, PRO, TROPHS, PBNP, CBC #### [address] [address] Basophils/100 WBC (Bld) 0.8 % Normal 0.0-2.5 [facility] Comment on above: Performed By: #### A KIMBERLY, ADIFF, APTT, MDW, GFR, CMP, PRO, TROPHS, PBNP, CBC #### [address] [address] Eosinophil, Absolute 0.1 10 3/mcL Normal 0.0-0.7 [facility] Comment on above: Performed By: #### A KIMBERLY, ADIFF, APTT, MDW, GFR, CMP, PRO, TROPHS, PBNP, CBC #### [address] [address] Eosinophils/100 WBC (Bld) 1.8 % Normal 0.0-6.0 [facility] Comment on above: Performed By: #### A KIMBERLY, ADIFF, APTT, MDW, GFR, CMP, PRO, TROPHS, PBNP, CBC #### [address] [address] Lymphocyte, Absolute 1.8 10 3/mcL Normal 0.9-4.3 [facility] Comment on above: Performed By: #### A KIMBERLY, ADIFF, APTT, MDW, GFR, CMP, PRO, TROPHS, PBNP, CBC #### [address] [address] Lymphocytes/100 WBC (Bld) 31.0 % Normal 20.0-40.0 [facility] Comment on above: Performed By: #### A KIMBERLY, ADIFF, APTT, MDW, GFR, CMP, PRO, TROPHS, PBNP, CBC #### [address] [address] Monocyte, Absolute 0.4 10 3/mcL Normal 0.1-1.4 [facility] Comment on above: Performed By: #### A KIMBERLY, ADIFF, APTT, MDW, GFR, CMP, PRO, TROPHS, PBNP, CBC #### [address] [address] Monocytes/100 WBC (Bld) 7.2 % Normal 2.0-13.0 [facility] Comment on above: Performed By: #### A KIMBERLY, ADIFF, APTT, MDW, GFR, CMP, PRO, TROPHS, PBNP, CBC #### [address] [address] Neutrophils/100 WBC (Bld) 59.2 % Normal 50.0-75.0 [facility] Comment on above: Performed By: #### A KIMBERLY, ADIFF, APTT, MDW, GFR, CMP, PRO, TROPHS, PBNP, CBC #### [address] [address] .GFRon 10-17-2024 Estimated Glomerular Filtration Rate 108 ml/min/1.73sqm Normal [facility] Comment on above: Result Comment: Stages of [...] MDW, GFR, CMP, PRO, TROPHS, PBNP, CBC ####[address] [address] .MDWon 10-17-2024 Monocyte Distribution Width 17.69 Normal 0.00-20.00 [facility] Comment on above: Result Comment: For ED adult patients suspected of sepsis, MDW<=20.0 does not rule out sepsis or risk of sepsis Performed By: #### A KIMBERLY, ADIFF, APTT, MDW, GFR, CMP, PRO, TROPHS, PBNP, CBC #### [address] [address] .NEUABSon 10-17-2024 Neutrophil, Absolute 3.5 10 3/mcL Normal 2.3-8.1 [facility] Comment on above: Performed By: #### A KIMBERLY, ADIFF, APTT, MDW, GFR, CMP, PRO, TROPHS, PBNP, CBC #### [place] [address] APTTon 10-17-2024 aPTT Coag (Bld) [Time] 30.6 s Normal 25.0-35.0 [facility] Comment on above: Result Comment: For Heparin anticoagulation therapy, the recommended therapeutic range is: 45.4-75.9 seconds. Patients on heparin therapy may have an extreme result. Performed By: #### A KIMBERLY, ADIFF, APTT, MDW, GFR, CMP, PRO, TROPHS, PBNP, CBC #### [address] [address] CBCon 10-17-2024 Erythrocyte distribution width (RBC) [Ratio] 13.3 % Normal 11.5-15.5 [facility] Comment on above: Performed By: #### A KIMBERLY, ADIFF, APTT, MDW, GFR, CMP, PRO, TROPHS, PBNP, CBC #### [address] [address] Hematocrit (Bld) [Volume fraction] 48.6 % Normal 40.0-52.0 [facility] Comment on above: Performed By: #### A KIMBERLY, ADIFF, APTT, MDW, GFR, CMP, PRO, TROPHS, PBNP, CBC #### [address] [address] Hgb 17.1 G/dL Normal 13.0-17.5 [facility] Comment on above: Performed By: #### A KIMBERLY, ADIFF, APTT, MDW, GFR, CMP, PRO, TROPHS, PBNP, CBC #### [place] [address] MCH (RBC) [Entitic mass] 33.9 pg High 27.0-33.0 [facility] Comment on above: Performed By: #### A KIMBERLY, ADIFF, APTT, MDW, GFR, CMP, PRO, TROPHS, PBNP, CBC #### [place] [address] MCHC 35.2 G/dL Normal 32.0-36.0 [facility] Comment on above: Performed By: #### A KIMBERLY, ADIFF, APTT, MDW, GFR, CMP, PRO, TROPHS, PBNP, CBC #### [place] [address] MCV (RBC) [Entitic vol] 96.3 fL Normal 81.0-100.0 [facility] Comment on above: Performed By: #### A KIMBERLY, ADIFF, APTT, MDW, GFR, CMP, PRO, TROPHS, PBNP, CBC #### [place] [address] Platelet 164 10 3/mcL Normal 150-450 [facility] Comment on above: Performed By: #### A KIMBERLY, ADIFF, APTT, MDW, GFR, CMP, PRO, TROPHS, PBNP, CBC #### [place] [address] Platelet mean volume (Bld) [Entitic vol] 9.5 fL Normal 6.4-10.5 [facility] Comment on above: Performed By: #### A KIMBERLY, ADIFF, APTT, MDW, GFR, CMP, PRO, TROPHS, PBNP, CBC #### [address] [address] RBC 5.04 10 6/mcL Normal 4.50-6.00 [facility] Comment on above: Performed By: #### A KIMBERLY, ADIFF, APTT, MDW, GFR, CMP, PRO, TROPHS, PBNP, CBC #### [address] [address] WBC 5.9 10 3/mcL Normal 4.5-10.8 [facility] Comment on above: Performed By: #### A KIMBERLY, ADIFF, APTT, MDW, GFR, CMP, PRO, TROPHS, PBNP, CBC #### [address] [address] CMPon 10-17-2024 Albumin Level 3.8 G/dL Normal 3.5-5.0 [facility] Comment on above: Performed By: #### A KIMBERLY, ADIFF, APTT, MDW, GFR, CMP, PRO, TROPHS, PBNP, CBC #### [address] [address] Albumin/Globulin [Mass ratio] 1.2 {ratio} Normal 1.1-2.5 [facility] Comment on above: Performed By: #### A KIMBERLY, ADIFF, APTT, MDW, GFR, CMP, PRO, TROPHS, PBNP, CBC #### [address] [address] ALP [Catalytic activity/Vol] 63 U/L Normal 40-135 [facility] Comment on above: Performed By: #### A KIMBERLY, ADIFF, APTT, MDW, GFR, CMP, PRO, TROPHS, PBNP, CBC #### [address] [address] ALT [Catalytic activity/Vol] 31 U/L Normal 16-63 [facility] Comment on above: Performed By: #### A KIMBERLY, ADIFF, APTT, MDW, GFR, CMP, PRO, TROPHS, PBNP, CBC #### [address] [address] AST [Catalytic activity/Vol] 22 U/L Normal 10-40 [facility] Comment on above: Performed By: #### A KIMBERLY, ADIFF, APTT, MDW, GFR, CMP, PRO, TROPHS, PBNP, CBC #### [address] [address] Bili Total 0.6 mg/dL Normal 0.2-1.0 [facility] Comment on above: Result Comment: Use of this assay is not recommended for patients undergoing treatment with eltrombopag due to the potential for falsely elevated results. Performed By: #### A KIMBERLY, ADIFF, APTT, MDW, GFR, CMP, PRO, TROPHS, PBNP, CBC #### [place] [address] BUN/Creatinine Ratio 12 ratio Normal 7-27 [facility] Comment on above: Performed By: #### A KIMBERLY, ADIFF, APTT, MDW, GFR, CMP, PRO, TROPHS, PBNP, CBC #### [address] [address] Calcium [Mass/Vol] 8.9 mg/dL Normal 8.4-10.2 [facility] Comment on above: Performed By: #### A KIMBERLY, ADIFF, APTT, MDW, GFR, CMP, PRO, TROPHS, PBNP, CBC #### [address] [address] Chloride [Moles/Vol] 104 mmol/L Normal 98-107 [facility] Comment on above: Performed By: #### A IKMBERLY, ADIFF, APTT, MDW, GFR, CMP, PRO, TROPHS, PBNP, CBC #### [address] [address] CO2 [Moles/Vol] 28 mmol/L Normal 22-29 [facility] Comment on above: Performed By: #### A KIMBERLY, ADIFF, APTT, MDW, GFR, CMP, PRO, TROPHS, PBNP, CBC #### [address] [address] Creatinine [Mass/Vol] 0.89 mg/dL Normal 0.67-1.17 [facility] Comment on above: Performed By: #### A KIMBERLY, ADIFF, APTT, MDW, GFR, CMP, PRO, TROPHS, PBNP, CBC #### [address] [address] Electrolyte Balance 6.0 mEq/L Normal 4.0-15.0 [facility] Comment on above: Performed By: #### A KIMBERLY, ADIFF, APTT, MDW, GFR, CMP, PRO, TROPHS, PBNP, CBC #### [address] [address] Globulin 3.1 G/dL Normal 2.7-4.4 [facility] Comment on above: Performed By: #### A KIMBERLY, ADIFF, APTT, MDW, GFR, CMP, PRO, TROPHS, PBNP, CBC #### [address] [address] Glucose [Mass/Vol] 95 mg/dL Normal 70-105 [facility] Comment on above: Performed By: #### A KIMBERLY, ADIFF, APTT, MDW, GFR, CMP, PRO, TROPHS, PBNP, CBC #### [address] [address] Potassium [Moles/Vol] 4.3 mmol/L Normal 3.5-5.1 [facility] Comment on above: Performed By: #### A KIMBERLY, ADIFF, APTT, MDW, GFR, CMP, PRO, TROPHS, PBNP, CBC #### [address] [address] Sodium [Moles/Vol] 138 mmol/L Normal 136-145 [facility] Comment on above: Performed By: #### A KIMBERLY, ADIFF, APTT, MDW, GFR, CMP, PRO, TROPHS, PBNP, CBC #### [address] [address] Total Protein 6.9 G/dL Normal 6.4-8.2 [facility] Comment on above: Performed By: #### A KIMBERLY, ADIFF, APTT, MDW, GFR, CMP, PRO, TROPHS, PBNP, CBC #### [facility] [address] [place], [place] [address] Urea nitrogen [Mass/Vol] 11 mg/dL Normal 7-18 [facility] Comment on above: Performed By: #### A KIMBERLY, ADIFF, APTT, MDW, GFR, CMP, PRO, TROPHS, PBNP, CBC #### [place] [id number] [place], [place] [address] CT ANGIOGRAPHY CHEST W/CONTR Iam 10-17-2024 CT [...] by: Arnold Dowell MD Preliminary Report By: Aronld Dowell MD Electronically signed By Arnold Dowell MD Dictated Date: 10/17/2024 2:29:00 PM Prelim Date: 10/17/2024 2:34:48 PM Sign Date: 10/17/2024 2:34:48 PM Ordering Provider: DAYAN KIDD [facility] CT ANGIOGRAPHY HEAD W/ CONTR Iam [...] 10/17/2024 1:51:26 PM Ordering Provider: DAYAN KIDD [facility] CT ANGIOGRAPHY NECK W/CONTRA STon 10-17-2024 [...] By: Hudson Villagomez MD Electronically signed By Husdon Villagomez MD Dictated Date: 10/17/2024 1:42:56 PM Prelim Date: 10/17/2024 1:48:02 PM Sign Date: 10/17/2024 1:48:02 PM Ordering Provider: DAYAN KIDD [facility] LABORATORYOrdered By: SYSTEM SYSTEM on 10-17-2024 [...] Comment on above: Interpretive Data: Anayeli mathur [employer] (CHEST, 1991, 102:312S-25S) [...] ng/L Male: 0-76 ng/L Testing performed on Cellectar using a homogeneous sandwich chemiluminescent immunoassay based on YouFig technology. Urea nitrogen [Mass/Vol] 11 mg/dL Normal 7 - 18 mg/dL AO ADM SS Urea nitrogen/Creatinine [Mass ratio] 12 ratio Normal 7 - 27 ratio AO ADM SS WBC (Bld) [#/Vol] 5.9 103/mcL Normal 4.5 - 10.8 10^3/mcL AO Workflow SS PBNPon 10-17-2024 Natriuretic peptide B (Bld) [Mass/Vol] 15 pg/mL Normal 0-125 [facility] Comment on above: Result Comment: NT-p roBNP results of less than 300 pg/mL effectively rules out acute congestive heart failure with 99% negative predictive value. Performed By: #### A KIMBERLY, ADIFF, APTT, MDW, GFR, CMP, PRO, TROPHS, PBNP, CBC ####[address] [place], [place] [address] PROon 10-17-2024 PT Coag (PPP) [Time] 10.9 s Normal 9.0-14.4 [facility] Comment on above: Performed By: #### A KIMBERLY, ADIFF, APTT, MDW, GFR, CMP, PRO, TROPHS, PBNP, CBC #### [facility] [address] [place], [place] [address] PT International Ratio 1.0 Normal [facility] Comment on above: Result Comment: [employer] (CHEST, 1992, 102:312S-25S) recommended therapeutic range for oral anticoagulant therapy is: LOW RISK: Prophylaxis of venous thrombosis INR: 2.0-3.0 Treatment of pulmonary embolism 2.0-3.0 Prevention of systemic embolism 2.0-3.0 HIGH RISK: Mechanical prosthetic valves 2.5-3.5 Performed By: #### A KIMBERLY, ADIFF, APTT, MDW, GFR, CMP, PRO, TROPHS, PBNP, CBC #### [id number] [place], [place] [address] [facility] High Sensitivity Troponin I 5 ng/L Normal 0-76 [facility] Comment on above: Result Comment: High Sensitive Troponin I Reference Ranges: Female: 0-51 ng/L Male: 0-76 ng/L Testing performed on Cellectar using a homogeneous sandwich chemiluminescent immunoassay based on YouFig technology. Performed By: #### A KIMBERLY, ADIFF, APTT, MDW, GFR, CMP, PRO, TROPHS, PBNP, CBC ####[place] [place], [place] [address] 12 Lead EKGon 10-15-2024 12 Lead EKG [facility] Cardiovascular Services [address] [place] [address] 12 Lead EKG 10/15/24 1231 MR#: [id number] Acct: [id number] Name: ANDREW MCLEAN JrPing Rep #: [id number] : 1980 44 From: Yoshi Catalan MD [...] Normal ECG Confirmed by YOSHI CATALAN MD ([id number]), photo editor ELIECER GUERRA ([id number]) on 10/17/2024 11:31:52 AM Referred By: Confirmed By: YOSHI CATALAN MD 10/17/24 1131 Date Yoshi Catalan MD CC: Dr. Kenny Wells, DO; ZAHRAA Lind; No Primary Care Physician Signed Normal [facility] Absolute lymphocyte countOrd ered By: Fallon Kinney on 10-15-2024 Lymphocytes Auto (Unsp spec) [#/Vol] 1.89 10*3/uL 0.83-4.51 [facility] Absolute neutrophil countOrd ered By: Fallon Kinney on 10-15-2024 Neutrophils (Bld) [#/Vol] 5.2 10*3/uL 2.0-7.7 [facility] Anion gap in Serum or Plasma Ordered By: Fallon Kinney on 10-15-2024 Anion gap [Moles/Vol] 12 mmol/L 5-15 [facility] Automated lymphocyte count a s percentage of total leukocytesOrdered By: Fallon Kinney on 10-15-2024 Lymphocytes/100 WBC Auto (Unsp spec) 24.5 % 19-41 [facility] BUN/creatinine ratioOrdered By: Fallon Kinney on 10-15-2024 Urea nitrogen/Creatinine [Mass ratio] 11.1 mg/mg 10-20 [facility] Basophil percentageOrdered B y: Fallon Kinney on 10-15-2024 Basophils/100 WBC (Bld) 0.8 % 0-1 [facility] Bilirubin, totalOrdered By: Fallon Kinney on 10-15-2024 Bilirubin [Mass/Vol] 0.60 mg/dL 0.00-1.30 [facility] CBC W/Diff, Automatedon 10-04 Absolute Lymph 1.89 X10 3/uL Normal 0.83-4.51 [facility] Comment on above: Performed By: #### L 100.0100, BTSPAT, L501.5200, L501.9985, M100.651 #### [facility] [address] [place], [address] Absolute Neut 5.2 X10 3/uL Normal 2.0-7.7 [facility] Comment on above: Performed By: #### L 100.0100, BTSPAT, L501.5200, L501.9985, M100.651 #### [facility] [address] [place], [address] Basophils/100 WBC (Bld) 0.8 % Normal 0-1 [facility] Comment on above: Performed By: #### L 100.0100, BTSPAT, L501.5200, L501.9985, M100.651 #### [facility] [address] [place], [address] Eosinophils/100 WBC (Bld) 1.0 % Normal 0-5 [facility] Comment on above: Performed By: #### L 100.0100, BTSPAT, L501.5200, L501.9985, M100.651 #### [facility] [address] [place], [address] Erythrocyte distribution width (RBC) [Ratio] 12.4 % Normal 11.6-14.6 [facility] Comment on above: Performed By: #### L 100.0100, BTSPAT, L501.5200, L501.9985, M100.651 #### [facility] [address] [place], [address] Hematocrit (Bld) [Volume fraction] 50.9 % Normal 40-54 [facility] Comment on above: Performed By: #### L 100.0100, BTSPAT, L501.5200, L501.9985, M100.651 #### [facility] [address] [place], [address] Hemoglobin (Bld) [Mass/Vol] 17.8 g/dL High 13.0-16.5 [facility] Comment on above: Performed By: #### L 100.0100, BTSPAT, L501.5200, L501.9985, M100.651 #### [facility] [address] [place], [address] IG% 0.400 Normal 0.0-0.9 [facility] Comment on above: Result Comment: IG% - Immature Granulocytes (promyelocytes, myelocytes and metamyelocytes) > 1% indicates that a LEFT SHIFT is Present. Performed By: #### L 100.0100, BTSPAT, L501.5200, L501.9985, M100.651 #### [facility] [address] [place], [address] Lymphocytes/100 WBC (Bld) 24.5 % Normal 19-41 [facility] Comment on above: Performed By: #### L 100.0100, BTSPAT, L501.5200, L501.9985, M100.651 #### [facility] [address] [place], [address] MCH (RBC) [Entitic mass] 33.5 pg High 27.0-32.0 [facility] Comment on above: Performed By: #### L 100.0100, BTSPAT, L501.5200, L501.9985, M100.651 #### [facility] [address] [place], [address] MCHC (RBC) [Mass/Vol] 35.0 g/dL Normal 32-36 [facility] Comment on above: Performed By: #### L 100.0100, BTSPAT, L501.5200, L501.9985, M100.651 #### [facility] [address] [place], [address] MCV (RBC) [Entitic vol] 95.7 fL High 80-94 [facility] Comment on above: Performed By: #### L 100.0100, BTSPAT, L501.5200, L501.9985, M100.651 #### [facility] [address] [place], [address] Monocytes/100 WBC (Bld) 6.0 % Normal 0-10 [facility] Comment on above: Performed By: #### L 100.0100, BTSPAT, L501.5200, L501.9985, M100.651 #### [facility] [address] [place], [address] Neutrophils/100 WBC (Bld) 67.3 % Normal 47-70 [facility] Comment on above: Performed By: #### L 100.0100, BTSPAT, L501.5200, L501.9985, M100.651 #### [facility] [address] [place], [address] Nucleated RBC (Bld) [#/Vol] 0 10*3/uL Normal 0-5 [facility] Comment on above: Performed By: #### L 100.0100, BTSPAT, L501.5200, L501.9985, M100.651 #### [facility] [address] [place], [address] Platelet mean volume (Bld) [Entitic vol] 11.3 fL Normal 6.2-12.0 [facility] Comment on above: Performed By: #### L 100.0100, BTSPAT, L501.5200, L501.9985, M100.651 #### [facility] [address] [place], [address] Platelets (Bld) [#/Vol] 209 10*3/uL Normal 150-450 [facility] Comment on above: Performed By: #### L 100.0100, BTSPAT, L501.5200, L501.9985, M100.651 #### [facility] [address] [place], [address] RBC (Bld) [#/Vol] 5.32 10*6/uL Normal 4.6-6.2 [facility] Comment on above: Performed By: #### L 100.0100, BTSPAT, L501.5200, L501.9985, M100.651 #### [facility] [address] [place], [address] RDW SD 43.6 fl Normal 35.1-43.9 [facility] Comment on above: Performed By: #### L 100.0100, BTSPAT, L501.5200, L501.9985, M100.651 #### [facility] [address] [place], [address] WBC (Bld) [#/Vol] 7.7 10*3/uL Normal 4.4-11.0 [facility] Comment on above: Performed By: #### L 100.0100, BTSPAT, L501.5200, L501.9985, M100.651 #### [facility] [address] [place], [address] CTA Chst, Abd, Pel W and/or WOon 10-15-2024 CTA Chst, Abd, Pel W and/or WO [facility] Imaging Services [address] [place] [address] CTA Chst, Abd, Pel W and/or WO MR#: [id number] Acct: [id number] Name: ANDREW MCLEAN GUILLE Huston Rep #: [id number] : 1980 M 44 From: Talisha Escobedo nd, MD PCP: Care Physician,No Primary Status: [facility] ER Study: CTA Chst, Abd, Pel W and/or WO Date of Exam: 0 10/15/24 Exam# [id number] Ordering Dr: Kenny Wells DO PROCEDURE: CTA [...] THE CHEST, ABDOMEN OR PELVIS. Reading Location: [id number] CC: Dr. Kenny Wells DO; No Primary Care Physician Event Executive: Signed Normal [facility] Carbon dioxide, total [Moles /volume] in Central venous bloodOrdered By: Fallon Kinney on 10-15-2024 CO2 [Moles/Vol] 22.7 mmol/L 21.0-32.0 [facility] Chloride assayOrdered By: Beatris Kinney on 10-15-2024 Chloride [Moles/Vol] 108 mmol/L 98-108 [facility] Comprehensive Metabolic Prof ilon 10-15-2024 Albumin [Mass/Vol] 4.7 g/dL Normal 3.5-5.0 [facility] Comment on above: Performed By: #### L 100.0100, BTSPAT, L501.5200, L501.9985, M100.651 #### [facility] [address] [place], [address] Albumin/Globulin [Mass ratio] 1.6 {ratio} Normal 0.9-2.4 [facility] Comment on above: Performed By: #### L 100.0100, BTSPAT, L501.5200, L501.9985, M100.651 #### [facility] [address] [place], [address] ALK PHOS 66 U/L Normal 40-129 [facility] Comment on above: Performed By: #### L 100.0100, BTSPAT, L501.5200, L501.9985, M100.651 #### [facility] [address] [place], [address] ALT [Catalytic activity/Vol] 32 U/L Normal <=46 [facility] Comment on above: Performed By: #### L 100.0100, BTSPAT, L501.5200, L501.9985, M100.651 #### [facility] [address] [place], [address] AST [Catalytic activity/Vol] 25 U/L Normal <=37 [facility] Comment on above: Performed By: #### L 100.0100, BTSPAT, L501.5200, L501.9985, M100.651 #### [facility] [address] [place], [address] Bilirubin [Mass/Vol] 0.60 mg/dL Normal 0.00-1.30 [facility] Comment on above: Performed By: #### L 100.0100, BTSPAT, L501.5200, L501.9985, M100.651 #### [facility] [address] [place], [address] BUN/CRE 11.1 RATIO Normal 10-20 [facility] Comment on above: Performed By: #### L 100.0100, BTSPAT, L501.5200, L501.9985, M100.651 #### [facility] [address] [place], [address] Calcium [Mass/Vol] 9.4 mg/dL Normal 7.6-11.0 [facility] Comment on above: Performed By: #### L 100.0100, BTSPAT, L501.5200, L501.9985, M100.651 #### [facility] [address] [place], [address] Chloride [Moles/Vol] 108 mmol/L Normal 98-108 [facility] Comment on above: Performed By: #### L 100.0100, BTSPAT, L501.5200, L501.9985, M100.651 #### [facility] [address] [place], [address] CO2 [Moles/Vol] 22.7 mmol/L Normal 21.0-32.0 [facility] Comment on above: Performed By: #### L 100.0100, BTSPAT, L501.5200, L501.9985, M100.651 #### [facility] [address] [place], [address] Creatinine [Mass/Vol] 0.96 mg/dL Normal 0.70-1.20 [facility] Comment on above: Performed By: #### L 100.0100, BTSPAT, L501.5200, L501.9985, M100.651 #### [facility] [address] [place], [address] ECRCL 97.17 ml/min Normal 50-250 [facility] Comment on above: Performed By: #### L 100.0100, BTSPAT, L501.5200, L501.9985, M100.651 #### [facility] [address] [place], [address] GAP 12 Normal 5-15 [facility] Comment on above: Performed By: #### L 100.0100, BTSPAT, L501.5200, L501.9985, M100.651 #### [facility] [address] [place], [address] GFR/1.73 sq M.predicted among non-blacks MDRD (S/P/Bld) [Vol rate/Area] 100 mL/min/{1.73_m2} Normal >60 [facility] Comment on above: Result Comment: mL/m in/1.73m2 CKD-EPI Creatinine Equation (2020) Performed By: #### L 100.0100, BTSPAT, L501.5200, L501.9985, M100.651 #### [facility] [address] [place], [address] Globulin (S) [Mass/Vol] 2.9 g/dL Normal 2.2-4.2 [facility] Comment on above: Performed By: #### L 100.0100, BTSPAT, L501.5200, L501.9985, M100.651 #### [facility] [address] [place], [address] Glucose [Mass/Vol] 85 mg/dL Normal 70-99 [facility] Comment on above: Performed By: #### L 100.0100, BTSPAT, L501.5200, L501.9985, M100.651 #### [facility] [address] [place], [address] Potassium [Moles/Vol] 4.2 mmol/L Normal 3.3-5.1 [facility] Comment on above: Performed By: #### L 100.0100, BTSPAT, L501.5200, L501.9985, M100.651 #### [facility] [address] [place], [address] Sodium [Moles/Vol] 142 mmol/L Normal 133-145 [facility] Comment on above: Performed By: #### L 100.0100, BTSPAT, L501.5200, L501.9985, M100.651 #### [facility] [address] [place], [address] T PROT 7.5 g/dL Normal 5.9-8.4 [facility] Comment on above: Performed By: #### L 100.0100, BTSPAT, L501.5200, L501.9985, M100.651 #### [facility] [address] [place], [address] Urea nitrogen [Mass/Vol] 11 mg/dL Normal 4-19 [facility] Comment on above: Performed By: #### L 100.0100, BTSPAT, L501.5200, L501.9985, M100.651 #### [facility] [address] [place], [address] Emergency Department Summary on 10-15-2024 Emergency Department Summary [facility] Medical Records Department [address] [place] [address] Emergency Department Summary 10/15/24 MR#: [id number] Acct: [id number] Name: ANDREW MCLEAN Rep #: [id number] : 1980 44 From: Fallon VITAL PCP: [...] surgery or travel, hemoptysis, hormone use [facility] Medical History Migraines Asthma Internal hemorrhage [...] Ox 99 (more content not included)... Normal [facility] Eosinophil percentageOrdered By: Fallon Kinney on 10-15-2024 Eosinophils/100 WBC (Bld) 1.0 % 0-5 [facility] Erythrocyte distribution wid th ratioOrdered By: Fallon Kinney on 10-15-2024 Erythrocyte distribution width (RBC) [Ratio] 12.4 % 11.6-14.6 [facility] Erythrocyte distribution wid th standard deviationOrdered By: Fallon Kinney on 10-15-2024 Erythrocyte distribution width (RBC) [Ratio] 43.6 fl 35.1-43.9 [facility] Glomerular filtration rate ( GFR) estimation/1.73 sq m using serum, plasma, or whole bOrdered By: Fallon Kinney on 10-15-2024 GFR/1.73 sq M.predicted among non-blacks MDRD (S/P/Bld) [Vol rate/Area] 100 mL/min/{1.73_m2} >60 [facility] Comment on above: mL/min/1.73m2 CKD-EP I Creatinine Equation (2020) Hematocrit Auto (Bld) [Volum e fraction]Ordered By: Fallon Kinney on 10-15-2024 Hematocrit (Bld) [Volume fraction] 50.9 % 40-54 [facility] Hemoglobin measurementOrdere d By: Fallon Kinney on 10-15-2024 Hemoglobin (Bld) [Mass/Vol] 17.8 g/dL High 13.0-16.5 [facility] Immature granulocytes/100 WB C Auto (Bld)Ordered By: Fallon Kinney on 10-15-2024 Immature granulocytes/100 WBC (Bld) 0.400 % 0.0-0.9 [facility] Comment on above: IG% - Immature Granu locytes (promyelocytes, myelocytes and metamyelocytes) > 1% indicates that a LEFT SHIFT is Present. L499.0042on 10-15-2024 Trop T High Sen < 6 Normal <=22 [facility] Comment on above: Result Comment: Hemo lysis present, Results??could be affected. ?? Performed By: #### L 100.0100, BTSPAT, L501.5200, L501.9985, M100.651 #### [facility] [address] [place], [address] L499.0043on 10-15-2024 Trop T High Sen Normal <=22 [facility] Comment on above: Result Comment: Canc elled via OM: MD Ordered Performed By: #### L 499.0043 #### [facility] [address] [place], [address] L501.4021on 10-15-2024 Trop T High Sen < 6 Normal <=22 [facility] Comment on above: Performed By: #### L 100.0100, BTSPAT, L501.5200, L501.9985, M100.651 #### [facility] [address] [place], [address] Laboratory - Chemistry and C hemistry - challengeOrdered By: Fallon Kinney on 10-15-2024 AST [Catalytic activity/Vol] 25 U/L <38 [facility] MCV (mean corpuscular volume ) determinationOrdered By: Fallon Kinney on 10-15-2024 MCV (RBC) [Entitic vol] 95.7 fL High 80-94 [facility] Mean corpuscular hemoglobin (MCH) determinationOrdered By: Fallon Kinney on 10-15-2024 MCH (RBC) [Entitic mass] 33.5 pg High 27.0-32.0 [facility] Mean corpuscular hemoglobin concentration (MCHC) determinationOrdered By: Fallon Kinney on 10-15-2024 MCHC (RBC) [Mass/Vol] 35.0 g/dL 32-36 [facility] Mean platelet volume determi nationOrdered By: Fallon Kinney on 10-15-2024 Platelet mean volume (Bld) [Entitic vol] 11.3 fL 6.2-12.0 [facility] Monocyte percentageOrdered B y: Fallon Kinney on 07-12-2025 Monocytes/100 WBC (Bld) 6.0 % 0-10 [facility] Neutrophil percentageOrdered By: Fallon Kinney on 10-15-2024 Neutrophils/100 WBC (Bld) 67.3 % 47-70 [facility] Nucleated red blood cell per centageOrdered By: Fallon Kinney on 10-15-2024 Nucleated RBC/100 WBC (Bld) [Ratio] 0 % 0-5 [facility] Platelet countOrdered By: Beatris Kinney on 10-15-2024 Platelets (Bld) [#/Vol] 209 10*3/uL 150-450 [facility] Potassium measurement (mass/ volume)Ordered By: Fallon Kinney on 10-15-2024 Potassium (Unsp spec) [Mass/Vol] 4.2 mmol/L 3.3-5.1 [facility] RBC Auto (Bld) [#/Vol]Ordere d By: Fallon Kinney on 10-15-2024 RBC (Bld) [#/Vol] 5.32 10*6/uL 4.6-6.2 [facility] Serum creatinine measurement (mass/volume)Ordered By: Fallon Kinney on 10-15-2024 Creatinine [Mass/Vol] 0.96 mg/dL 0.70-1.20 [facility] Serum globulin measurementOr dered By: Fallon Kinney on 10-15-2024 Globulin (S) [Mass/Vol] 2.9 g/dL 2.2-4.2 [facility] Serum glucose measurement (m ass/volume)Ordered By: Fallon Kinney on 10-15-2024 Glucose [Mass/Vol] 85 mg/dL 70-99 [facility] Serum or plasma alanine huggins otransferase (ALT) measurementOrdered By: Fallon Kinney on 10-15-2024 ALT [Catalytic activity/Vol] 32 U/L <47 [facility] Serum or plasma albumin zo urement (mass/volume)Ordered By: Fallon Kinney on 10-15-2024 Albumin [Mass/Vol] 4.7 g/dL 3.5-5.0 [facility] Serum or plasma albumin/glob ulin mass ratioOrdered By: Fallon Kinney on 10-15-2024 Albumin/Globulin [Mass ratio] 1.6 {ratio} 0.9-2.4 [facility] Serum or plasma alkaline cy sphatase measurementOrdered By: Fallon Kinney on 10-15-2024 ALP [Catalytic activity/Vol] 66 U/L 40-129 [facility] Serum or plasma calcium zo urement (mass/volume)Ordered By: Fallon Kinney on 10-15-2024 Calcium [Mass/Vol] 9.4 mg/dL 7.6-11.0 [facility] Serum or plasma urea nitroge n measurement (mass/volume)Ordered By: Fallon Kinney on 10-15-2024 Urea nitrogen [Mass/Vol] 11 mg/dL 4-19 [facility] Sodium levelOrdered By: Fallon Kinney on 10-15-2024 Sodium [Moles/Vol] 142 mmol/L 133-145 [facility] Total proteinOrdered By: Birgit Kinney on 10-15-2024 Protein [Mass/Vol] 7.5 g/dL 5.9-8.4 [facility] Troponin T.cardiac [Mass/vol ume] in Serum or Plasma by High sensitivity methodOrdered By: Fallon Kinney on 10-15-2024 Troponin T.cardiac High sensitivity method [Mass/Vol] < 6 ng/L <22 [facility] Comment on above: Hemolysis present, R esults could be affected. Troponin T.cardiac High sensitivity method [Mass/Vol] < 6 ng/L <22 [facility] White blood cell (WBC) count Ordered By: Fallon Kinney on 10-15-2024 WBC (Bld) [#/Vol] 7.7 10*3/uL 4.4-11.0 [facility] Abdomen/Pelvis W IV Cont ONL Yon 05-02-2024 Abdomen/Pelvis W IV Cont ONLY [facility] Imaging Services [address] [place] [address] Abdomen/Pelvis W IV Cont ONLY MR#: [id number] Acct: [id number] Name: ANDREW MCLEAN Jr. Rep #: [id number] : 1980 M 44 From: Jamee Bell PCP: Care Physician,No Primary Status: REG ER Study: Abdomen/Pelvis W IV Cont ONLY Date of Exam: Exam# [id number] Ordering Dr: Rhett Tyler DO [id number] EXAM: CT Abdomen And Pelvis W/ Contrast [...] Rhett Tyler, DO; No Primary Care Physician Event Executive: Signed Normal [facility] CBC W/Diff, Automatedon 04-07 Absolute Lymph 4.97 X10 3/uL High 0.83-4.51 [facility] Comment on above: Performed By: #### L 100.0100, L500.4050, L501.2450, M100.7900 #### [facility] [address] [place], [address] Absolute Neut 3.9 X10 3/uL Normal 2.0-7.7 [facility] Comment on above: Performed By: #### L 100.0100, L500.4050, L501.2450, M100.7900 #### [facility] [address] [place], [address] Basophils/100 WBC (Bld) 0.7 % Normal 0-1 [facility] Comment on above: Performed By: #### L 100.0100, L500.4050, L501.2450, M100.7900 #### [facility] [address] [place], [address] Eosinophils/100 WBC (Bld) 1.3 % Normal 0-5 [facility] Comment on above: Performed By: #### L 100.0100, L500.4050, L501.2450, M100.7900 #### [facility] [address] [place], [address] Erythrocyte distribution width (RBC) [Ratio] 12.0 % Normal 11.6-14.6 [facility] Comment on above: Performed By: #### L 100.0100, L500.4050, L501.2450, M100.7900 #### [facility] [address] [place], [address] Hematocrit (Bld) [Volume fraction] 49.2 % Normal 40-54 [facility] Comment on above: Performed By: #### L 100.0100, L500.4050, L501.2450, M100.7900 #### [facility] [address] [place], [address] Hemoglobin (Bld) [Mass/Vol] 17.9 g/dL High 13.0-16.5 [facility] Comment on above: Performed By: #### L 100.0100, L500.4050, L501.2450, M100.7900 #### [facility] [address] [place], [address] IG% 0.300 Normal 0.0-0.9 [facility] Comment on above: Result Comment: IG% - Immature Granulocytes (promyelocytes, myelocytes and metamyelocytes) > 1% indicates that a LEFT SHIFT is Present. Performed By: #### L 100.0100, L500.4050, L501.2450, M100.7900 #### [facility] [address] [place], [address] Lymphocytes/100 WBC (Bld) 51.0 % High 19-41 [facility] Comment on above: Performed By: #### L 100.0100, L500.4050, L501.2450, M100.7900 #### [facility] [address] [place], [address] MCH (RBC) [Entitic mass] 33.4 pg High 27.0-32.0 [facility] Comment on above: Performed By: #### L 100.0100, L500.4050, L501.2450, M100.7900 #### [facility] [address] [place], [address] MCHC (RBC) [Mass/Vol] 36.4 g/dL High 32-36 [facility] Comment on above: Performed By: #### L 100.0100, L500.4050, L501.2450, M100.7900 #### [facility] [address] [place], [address] MCV (RBC) [Entitic vol] 91.8 fL Normal 80-94 [facility] Comment on above: Performed By: #### L 100.0100, L500.4050, L501.2450, M100.7900 #### [facility] [address] [place], [address] Monocytes/100 WBC (Bld) 6.4 % Normal 0-10 [facility] Comment on above: Performed By: #### L 100.0100, L500.4050, L501.2450, M100.7900 #### [facility] [address] [place], [address] Neutrophils/100 WBC (Bld) 40.3 % Low 47-70 [facility] Comment on above: Performed By: #### L 100.0100, L500.4050, L501.2450, M100.7900 #### [facility] [address] [place], [address] Nucleated RBC (Bld) [#/Vol] 0 10*3/uL Normal 0-5 [facility] Comment on above: Performed By: #### L 100.0100, L500.4050, L501.2450, M100.7900 #### [facility] [address] [place], [address] Platelet mean volume (Bld) [Entitic vol] 11.6 fL Normal 6.2-12.0 [facility] Comment on above: Performed By: #### L 100.0100, L500.4050, L501.2450, M100.7900 #### [facility] [address] [place], [address] Platelets (Bld) [#/Vol] 221 10*3/uL Normal 150-450 [facility] Comment on above: Performed By: #### L 100.0100, L500.4050, L501.2450, M100.7900 #### [facility] [address] [place], [address] RBC (Bld) [#/Vol] 5.36 10*6/uL Normal 4.6-6.2 [facility] Comment on above: Performed By: #### L 100.0100, L500.4050, L501.2450, M100.7900 #### [facility] [address] [place], [address] RDW SD 40.3 fl Normal 35.1-43.9 [facility] Comment on above: Performed By: #### L 100.0100, L500.4050, L501.2450, M100.7900 #### [facility] [address] [place], [address] WBC (Bld) [#/Vol] 9.8 10*3/uL Normal 4.4-11.0 [facility] Comment on above: Performed By: #### L 100.0100, L500.4050, L501.2450, M100.7900 #### [facility] [address] [place], [address] [facility] 05-02-2024 Albumin [Mass/Vol] 4.4 g/dL Normal 3.2-5.0 [facility] Comment on above: Performed By: #### L 100.0100, L500.4050, L501.2450, M100.7900 #### [facility] [address] [place], [address] Albumin/Globulin [Mass ratio] 1.3 {ratio} Normal 0.9-2.4 [facility] Comment on above: Performed By: #### L 100.0100, L500.4050, L501.2450, M100.7900 #### [facility] [address] [place], [address] ALK P 56 U/L Normal 45-117 [facility] Comment on above: Performed By: #### L 100.0100, L500.4050, L501.2450, M100.7900 #### [facility] [address] [place], [address] ALT [Catalytic activity/Vol] 56 U/L Normal 16-61 [facility] Comment on above: Performed By: #### L 100.0100, L500.4050, L501.2450, M100.7900 #### [facility] [address] [place], [address] AST [Catalytic activity/Vol] 25 U/L Normal 15-37 [facility] Comment on above: Performed By: #### L 100.0100, L500.4050, L501.2450, M100.7900 #### [facility] [address] [place], [address] Bilirubin [Mass/Vol] 0.60 mg/dL Normal 0.20-1.00 [facility] Comment on above: Result Comment: For patients on eltrombopag therapy, use of Dimension [place] TBIL is not recommended. Performed By: #### L 100.0100, L500.4050, L501.2450, M100.7900 #### [facility] [address] [place], [address] BUN/CRE 9.5 RATIO Low 10-20 [facility] Comment on above: Performed By: #### L 100.0100, L500.4050, L501.2450, M100.7900 #### [facility] [address] [place], [address] CA,Total 9.2 mg/dL Normal 8.5-10.1 [facility] Comment on above: Performed By: #### L 100.0100, L500.4050, L501.2450, M100.7900 #### [facility] [address] [place], [address] Chloride [Moles/Vol] 112 mmol/L High 98-107 [facility] Comment on above: Performed By: #### L 100.0100, L500.4050, L501.2450, M100.7900 #### [facility] [address] [place], [address] CO2 [Moles/Vol] 24.0 mmol/L Normal 21.0-32.0 [facility] Comment on above: Performed By: #### L 100.0100, L500.4050, L501.2450, M100.7900 #### [facility] [address] [place], [address] Creatinine [Mass/Vol] 0.95 mg/dL Normal 0.70-1.30 [facility] Comment on above: Result Comment: The validity of the calculated GFR GFRAA in patients over 70 years has not been determined. Clinical correlation is essential. Performed By: #### L 100.0100, L500.4050, L501.2450, M100.7900 #### [facility] [address] [place], [address] ECRCL 107.03 ml/min Normal [facility] Comment on above: Performed By: #### L 100.0100, L500.4050, L501.2450, M100.7900 #### [facility] [address] [place], [address] EST GFR - AA 110 mL/min Normal >60 [facility] Comment on above: Result Comment: Afri can Macanese GFR Calc Performed By: #### L 100.0100, L500.4050, L501.2450, M100.7900 #### [facility] [address] [place], [address] GAP 7 Normal 5-15 [facility] Comment on above: Performed By: #### L 100.0100, L500.4050, L501.2450, M100.7900 #### [facility] [address] [place], [address] GFR/1.73 sq M.predicted among non-blacks MDRD (S/P/Bld) [Vol rate/Area] 91 mL/min/{1.73_m2} Normal >60 [facility] Comment on above: Result Comment: Non- GFR Calc Performed By: #### L 100.0100, L500.4050, L501.2450, M100.7900 #### [facility] [address] [place], [address] Globulin (S) [Mass/Vol] 3.5 g/dL Normal 2.2-4.2 [facility] Comment on above: Performed By: #### L 100.0100, L500.4050, L501.2450, M100.7900 #### [facility] [address] [place], [address] Glucose [Mass/Vol] 80 mg/dL Normal 74-106 [facility] Comment on above: Performed By: #### L 100.0100, L500.4050, L501.2450, M100.7900 #### [facility] [address] [place], [address] Potassium [Moles/Vol] 3.9 mmol/L Normal 3.5-5.1 [facility] Comment on above: Performed By: #### L 100.0100, L500.4050, L501.2450, M100.7900 #### [facility] [address] [place], [address] Sodium [Moles/Vol] 143 mmol/L Normal 136-145 [facility] Comment on above: Performed By: #### L 100.0100, L500.4050, L501.2450, M100.7900 #### [facility] [address] [place], [address] T PROT 7.9 g/dL Normal 6.4-8.2 [facility] Comment on above: Performed By: #### L 100.0100, L500.4050, L501.2450, M100.7900 #### [facility] [address] [place], [address] Urea nitrogen [Mass/Vol] 9 mg/dL Normal 7-18 [facility] Comment on above: Performed By: #### L 100.0100, L500.4050, L501.2450, M100.7900 #### [facility] [address] [place], [address] Emergency Department Summary on 05-02-2024 Emergency Department Summary [facility] Medical Records Department [address] [place] [address] Emergency Department Summary 05/02/24 MR#: [id number] Acct: [id number] Name: ANDREW MCLEAN JrPing Rep #: [id number] : 1980 44 From: Rhett Tyler DO [...] hematuria but denies any dysuria or frequency. [facility] Medical History Migraines Asthma Internal hemorrhage Hypertension Home Medications ???Medication ???Instructions ???Recorded ???Last Taken ???Type hydrocortisone 2.5 % topical cream 1 applic [place] QHS #30 grams 01/07/22 Unknown Rx with [...] regular rhy (more content not included)... Normal [facility] Lipaseon 05-02-2024 Lipase [Catalytic activity/Vol] 42 U/L Normal 13-75 [facility] Comment on above: Result Comment: Barbara mason note: LIPASE revised reference range effective 22. New Lipase methodology. Expected to produce lower values than the previous assay method. NEW Reference Range: 13 - 75 U/L Performed By: #### L 100.0100, L500.4050, L501.2450, M100.7900 #### [facility] [address] [place], [address] Partial Thromboplast Timeon 05-02-2024 aPTT Coag (Bld) [Time] 29.0 s Normal 24.1-36.2 [facility] Comment on above: Performed By: #### L 499.0043 #### [facility] [address] [place], [address] Prothrombin Time w/INRon INR Coag (PPP) [Relative time] 0.9 {INR} Normal [facility] Comment on above: Performed By: #### L 499.0043 #### [facility] [address] [place], [address] PT Coag (PPP) [Time] 12.7 s Normal 11.7-14.9 [facility] Comment on above: Performed By: #### L 499.0043 #### [facility] [address] [place], [address] Stool Occult Blood iFOBon STOB Positive Normal [facility] Comment on above: Performed By: #### L 499.0043 #### [facility] [address] [place], [address] Absolute lymphocyte countOrd ered By: Divya Nobles on 04-16-2023 Lymphocytes Auto (Unsp spec) [#/Vol] 1.88 10*3/uL 0.83-4.51 [facility] Basophil percentageOrdered B y: Divya Nobles on 04-16-2023 Basophils/100 WBC (Bld) 0.4 % 0-1 [facility] Chloride [Moles/Vol] 106 mmol/L 98-107 [facility] Eosinophils/100 WBC (Bld) 0.3 % 0-5 [facility] Glucose [Mass/Vol] 107 mg/dL 74-106 [facility] Comment on above: Fasting Glucose resu lt from 100 to 125 mg/dL suggests IMPAIRED HOMEOSTASIS per A.D.A. criteria. Neutrophils (Bld) [#/Vol] 8.2 10*3/uL 2.0-7.7 [facility] Neutrophils/100 WBC (Bld) 75.6 % 47-70 [facility] Potassium [Moles/Vol] 3.3 mmol/L 3.5-5.1 [facility] Sodium [Moles/Vol] 138 mmol/L 136-145 [facility] WBC (Bld) [#/Vol] 10.8 10*3/uL 4.4-11.0 [facility] Blood erythrocytes count (nu mber/volume)Ordered By: Divya Nobles on 04-16-2023 RBC (Bld) [#/Vol] 5.26 10*6/uL 4.6-6.2 [facility] Blood hemoglobin measurement (mass/volume)Ordered By: Divya Nobles on 04-16-2023 Hemoglobin (Bld) [Mass/Vol] 17.2 g/dL 13.0-16.5 [facility] Blood lymphocytes/100 leukoc ytesOrdered By: Divya Nobles on 04-16-2023 Lymphocytes/100 WBC (Bld) 17.4 % 19-41 [facility] Blood monocytes/100 leukocyt esOrdered By: Divya Nobles on 04-16-2023 Monocytes/100 WBC (Bld) 5.9 % 0-10 [facility] Blood platelet mean volumeOr dered By: Divya Nobles on 04-16-2023 Platelet mean volume (Bld) [Entitic vol] 11.3 fL 6.2-12.0 [facility] Determination of erythrocyte mean corpuscular volume (MCV)Ordered By: Divya Nobles on 04-16-2023 MCV (RBC) [Entitic vol] 94.5 fL 80-94 [facility] Hematocrit Auto (Bld) [Volum e fraction]Ordered By: Divya Nobles on 04-16-2023 Hematocrit (Bld) [Volume fraction] 49.7 % 40-54 [facility] - Chemistry and C hemistry - challengeOrdered By: Divya Nobles on 04-16-2023 CO2 [Moles/Vol] 26.0 mmol/L 21.0-32.0 [facility] Urea nitrogen/Creatinine [Mass ratio] 11.9 mg/mg 10-20 [facility] - Hematology and Cell countsOrdered By: Divya Nobles on 04-16-2023 Erythrocyte distribution width (RBC) [Entitic vol] 42.5 fL 35.1-43.9 [facility] Erythrocyte distribution width (RBC) [Ratio] 12.3 % 11.6-14.6 [facility] Immature granulocytes/100 WBC (Bld) 0.400 % 0.0-0.9 [facility] Comment on above: IG% - Immature Granu locytes (promyelocytes, myelocytes and metamyelocytes) > 1% indicates that a LEFT SHIFT is Present. MCH (RBC) [Entitic mass] 32.7 pg 27.0-32.0 [facility] Nucleated RBC/100 WBC (Bld) [Ratio] 0 % 0-5 [facility] MCHC Auto (RBC) [Mass/Vol]Or dered By: Divya Nobles on 04-16-2023 MCHC (RBC) [Mass/Vol] 34.6 g/dL 32-36 [facility] No Panel InformationOrdered By: Divya Nobles on 04-16-2023 D-Dimer Quantitative (PE/DVT) 0.47 FEU/ug/m 0.27-0.49 [facility] Comment on above: NORMAL D-Dimer level (<0.50) indicates no DVT or PE. Estimated Creatinine Clearance Calc 93.33 ml/min [facility] Estimated GFR (MDRD) Amer 103 mL/min >60 [facility] Comment on above: GFR Calc Estimated GFR (MDRD) Non-Af Amer 85 mL/min >60 [facility] Comment on above: Non- GFR Calc Troponin I High Sensitivity 5 pg/mL 3.0-78.0 [facility] Comment on above: Please Note: New Dona t Units and Gender Specific Reference Ranges. For more information see Policy Stat Procedure [place] High Sensitivity Troponin (TNIH) and attachments. Platelets bldOrdered By: Saba Nobles on 04-16-2023 Platelets (Bld) [#/Vol] 189 10*3/uL 150-450 [facility] Serum or plasma calcium zo urement (mass/volume)Ordered By: Divya Nobles on 04-16-2023 Calcium [Mass/Vol] 9.7 mg/dL 8.5-10.1 [facility] Serum or plasma creatinine m easurement (mass/volume)Ordered By: Divya Nobles on 04-16-2023 Creatinine [Mass/Vol] 1.01 mg/dL 0.70-1.30 [facility] Comment on above: The validity of the calculated GFR & GFRAA in patients over 70 years has not been determined. Clinical correlation is essential. Serum or plasma urea nitroge n measurement (mass/volume)Ordered By: Divya Nobles on 04-16-2023 Urea nitrogen [Mass/Vol] 12 mg/dL 7-18 [facility] Thin prep Papanicolaou smear with manual screeningOrdered By: Divya Nobles on 04-16-2023 Thin prep Papanicolaou smear with manual screening 6 5-15 [facility] - Microbiology an d Antimicrobial susceptibilityOrdered By: Christiano Garcia on 04-10-2023 SARS-CoV-2 (COVID-19) RNA WARNER+probe Ql (Unsp spec) Influenzae A [facility] SARS-CoV-2 (COVID-19) RNA WARNER+probe Ql (Unsp spec) Influenzae A [facility] Basophil percentageon 2021 WBC (Bld) [#/Vol] 8.9 10*3/uL 4.4-11.0 [facility] Work Phone: Blood erythrocytes count (nu mber/volume)on 03-03-2022 RBC (Bld) [#/Vol] 5.33 10*6/uL 4.6-6.2 [facility] Work Phone: Blood hemoglobin measurement (mass/volume)on 03-03-2022 Hemoglobin (Bld) [Mass/Vol] 18.4 g/dL 13.0-16.5 [facility] Work Phone: Comment on above: CRITICAL VALUE VERIF IED. CALLED TO [id number] Lindsay Sood.RESULTS READ BACK BY SAME . Blood platelet mean volumeon 03-03-2022 Platelet mean volume (Bld) [Entitic vol] 11.6 fL 6.2-12.0 [facility] Work Phone: Determination of erythrocyte mean corpuscular volume (MCV)on 03-03-2022 MCV (RBC) [Entitic vol] 97.2 fL 80-94 [facility] Work Phone: Hematocrit Auto (Bld) [Volum e fraction]on 03-03-2022 Hematocrit (Bld) [Volume fraction] 51.8 % 40-54 [facility] Work Phone: INR in Blood by Coagulation assayon 03-03-2022 INR Coag (Bld) [Relative time] 1.0 {INR} [facility] Work Phone: Laboratory - Coagulationon 1 05-03-2021 PT Coag (PPP) [Time] 12.6 s 11.7-14.9 [facility] Work Phone: Laboratory - Hematology and Cell countson 03-03-2022 Erythrocyte distribution width (RBC) [Entitic vol] 44.8 fL 35.1-43.9 [facility] Work Phone: [phone] Erythrocyte distribution width (RBC) [Ratio] 12.5 % 11.6-14.6 [facility] Work Phone: [phone] MCH (RBC) [Entitic mass] 34.5 pg 27.0-32.0 [facility] Work Phone: MCHC Auto (RBC) [Mass/Vol]on 03-03-2022 MCHC (RBC) [Mass/Vol] 35.5 g/dL 32-36 [facility] Work Phone: Platelets bldon 03-03-2022 Platelets (Bld) [#/Vol] 262 10*3/uL 150-450 [facility] Work Phone: [phone] Review by pathologiston 02-05 Pathologist review Steve (Unsp spec) [Interp] August [facility] Work Phone: Absolute lymphocyte counton 01-07-2022 Lymphocytes Auto (Unsp spec) [#/Vol] 2.25 10*3/uL 0.83-4.51 [facility] Work Phone: Basophil percentageon 10-04- 2022 Basophil percentage 2.8 mg/dL 2.5-4.9 [facility] Work Phone: Basophils/100 WBC (Bld) 1.0 % 0-1 [facility] Work Phone: Chloride [Moles/Vol] 115 mmol/L 98-107 [facility] Work Phone: Eosinophils/100 WBC (Bld) 3.5 % 0-5 [facility] Work Phone: Glucose [Mass/Vol] 85 mg/dL 74-106 [facility] Work Phone: Neutrophils (Bld) [#/Vol] 2.4 10*3/uL 2.0-7.7 [facility] Work Phone: Neutrophils/100 WBC (Bld) 45.7 % 47-70 [facility] Work Phone: Potassium [Moles/Vol] 3.8 mmol/L 3.5-5.1 [facility] Work Phone: Sodium [Moles/Vol] 143 mmol/L 136-145 [facility] Work Phone: WBC (Bld) [#/Vol] 5.2 10*3/uL 4.4-11.0 [facility] Work Phone: Blood erythrocytes count (nu mber/volume)on 01-07-2022 RBC (Bld) [#/Vol] 4.19 10*6/uL 4.6-6.2 [facility] Work Phone: Blood hemoglobin measurement (mass/volume)on 01-07-2022 Hemoglobin (Bld) [Mass/Vol] 14.8 g/dL 13.0-16.5 [facility] Work Phone: Blood lymphocytes/100 leukoc yteson 01-07-2022 Lymphocytes/100 WBC (Bld) 43.4 % 19-41 [facility] Work Phone: Blood monocytes/100 leukocyt eson 01-07-2022 Monocytes/100 WBC (Bld) 6.2 % 0-10 [facility] Work Phone: [phone] Blood platelet mean volumeon 01-07-2022 Platelet mean volume (Bld) [Entitic vol] 11.5 fL 6.2-12.0 [facility] Work Phone: [phone] Determination of erythrocyte mean corpuscular volume (MCV)on 01-07-2022 MCV (RBC) [Entitic vol] 99.0 fL 80-94 [facility] Work Phone: Hematocrit Auto (Bld) [Volum e fraction]on 01-07-2022 Hematocrit (Bld) [Volume fraction] 41.5 % 40-54 [facility] Work Phone: Laboratory - Chemistry and C hemistry - challengeon 01-07-2022 CO2 [Moles/Vol] 24.0 mmol/L 21.0-32.0 [facility] Work Phone: [phone] Magnesium [Mass/Vol] 2.2 mg/dL 1.6-2.6 [facility] Work Phone: Urea nitrogen/Creatinine [Mass ratio] 7.4 mg/mg 10-20 [facility] Work Phone: [phone] Laboratory - Hematology and Cell countson 01-07-2022 Erythrocyte distribution width (RBC) [Entitic vol] 44.6 fL 35.1-43.9 [facility] Work Phone: [phone] Erythrocyte distribution width (RBC) [Ratio] 12.4 % 11.6-14.6 [facility] Work Phone: Immature granulocytes/100 WBC (Bld) 0.200 % 0.0-0.9 [facility] Work Phone: Comment on above: IG% - Immature Granu locytes (promyelocytes, myelocytes and metamyelocytes) > 1% indicates that a LEFT SHIFT is Present. MCH (RBC) [Entitic mass] 35.3 pg 27.0-32.0 [facility] Work Phone: Nucleated RBC/100 WBC (Bld) [Ratio] 0 % 0-5 [facility] Work Phone: MCHC Auto (RBC) [Mass/Vol]on 01-07-2022 MCHC (RBC) [Mass/Vol] 35.7 g/dL 32-36 [facility] Work Phone: No Panel Informationon 01-07 Estimated Creatinine Clearance Calc 92.00 ml/min [facility] Work Phone: [phone] Estimated GFR (MDRD) Amer 96 mL/min >60 [facility] Work Phone: [phone] Comment on above: GFR Calc Estimated GFR (MDRD) Non-Af Amer 79 mL/min >60 [facility] Work Phone: Comment on above: Non- GFR Calc Platelets bldon 01-07-2022 Platelets (Bld) [#/Vol] 182 10*3/uL 150-450 [facility] Work Phone: [phone] Serum or plasma calcium zo urement (mass/volume)on 01-07-2022 Calcium [Mass/Vol] 8.0 mg/dL 8.5-10.1 [facility] Work Phone: Serum or plasma creatinine m easurement (mass/volume)on 01-07-2022 Creatinine [Mass/Vol] 1.08 mg/dL 0.70-1.30 [facility] Work Phone: Comment on above: The validity of the calculated GFR & GFRAA in patients over 70 years has not been determined. Clinical correlation is essential. Serum or plasma urea nitroge n measurement (mass/volume)on 01-07-2022 Urea nitrogen [Mass/Vol] 8 mg/dL 7-18 [facility] Work Phone: [phone] Thin prep Papanicolaou smear with manual screeningon 01-07-2022 Thin prep Papanicolaou smear with manual screening 4 5-15 [facility] Work Phone: Absolute lymphocyte counton 01-06-2022 Lymphocytes Auto (Unsp spec) [#/Vol] 2.14 10*3/uL 0.83-4.51 [facility] Work Phone: Basophil percentageon 2021 Amylase [Catalytic activity/Vol] 34 U/L 25-115 [facility] Work Phone: Basophils/100 WBC (Bld) 0.8 % 0-1 [facility] Work Phone: Bilirubin [Mass/Vol] 0.30 mg/dL 0.20-1.00 [facility] [facility] [place] Work Phone: Comment on above: For patients on eltr ombopag therapy, use of Dimension [place] TBIL is not recommended. Chloride [Moles/Vol] 112 mmol/L 98-107 [facility] [place] Work Phone: Eosinophils/100 WBC (Bld) 2.1 % 0-5 [facility] Work Phone: Glucose [Mass/Vol] 100 mg/dL 74-106 [facility] Work Phone: Comment on above: Fasting Glucose resu lt from 100 to 125 mg/dL suggests IMPAIRED HOMEOSTASIS per A.D.A. criteria. Neutrophils (Bld) [#/Vol] 3.5 10*3/uL 2.0-7.7 [facility] Work Phone: Neutrophils/100 WBC (Bld) 56.1 % 47-70 [facility] Work Phone: Potassium [Moles/Vol] 3.7 mmol/L 3.5-5.1 [facility] Work Phone: Comment on above: Slight Hemolysis, Re sult may be falsely increased. Protein [Mass/Vol] 7.7 g/dL 6.4-8.2 [facility] Work Phone: Sodium [Moles/Vol] 143 mmol/L 136-145 [facility] Work Phone: WBC (Bld) [#/Vol] 6.2 10*3/uL 4.4-11.0 [facility] Work Phone: Blood erythrocytes count (nu mber/volume)on 01-06-2022 RBC (Bld) [#/Vol] 4.59 10*6/uL 4.6-6.2 [facility] Work Phone: Blood hemoglobin measurement (mass/volume)on 01-06-2022 Hemoglobin (Bld) [Mass/Vol] 15.8 g/dL 13.0-16.5 [facility] Work Phone: Blood lymphocytes/100 leukoc yteson 01-06-2022 Lymphocytes/100 WBC (Bld) 34.6 % 19-41 [facility] Work Phone: Blood monocytes/100 leukocyt eson 01-06-2022 Monocytes/100 WBC (Bld) 6.1 % 0-10 [facility] Work Phone: Blood platelet mean volumeon 01-06-2022 Platelet mean volume (Bld) [Entitic vol] 11.8 fL 6.2-12.0 [facility] Work Phone: Determination of erythrocyte mean corpuscular volume (MCV)on 01-06-2022 MCV (RBC) [Entitic vol] 97.8 fL 80-94 [facility] Work Phone: Direct bilirubinon 2 Bilirubin.direct [Mass/Vol] 0.16 mg/dL 0.00-0.30 [facility] Work Phone: Erythrocyte sedimentation ra evette 01-06-2022 ESR (Bld) [Velocity] 11 mm/h 0-20 [facility] [place] Work Phone: Hematocrit Auto (Bld) [Volum e fraction]on 01-06-2022 Hematocrit (Bld) [Volume fraction] 44.9 % 40-54 [facility] Work Phone: INR in Blood by Coagulation assayon 01-06-2022 INR Coag (Bld) [Relative time] 1.1 {INR} [facility] Work Phone: Laboratory - Chemistry and C hemistry - challengeon 01-06-2022 Lipase [Catalytic activity/Vol] 193 U/L 73-393 [facility] Work Phone: [phone] ALP [Catalytic activity/Vol] 58 U/L 45-117 [facility] Work Phone: [phone] ALT [Catalytic activity/Vol] 60 U/L 16-61 [facility] Work Phone: [phone] CO2 [Moles/Vol] 25.0 mmol/L 21.0-32.0 [facility] Work Phone: [phone] Globulin (S) [Mass/Vol] 3.8 g/dL 2.2-4.2 [facility] Work Phone: [phone] Urea nitrogen/Creatinine [Mass ratio] 7.5 mg/mg 10-20 [facility] Work Phone: [phone] Laboratory - Coagulationon 1 aPTT Coag (Bld) [Time] 30.4 s 24.1-36.2 [facility] Work Phone: [phone] PT Coag (PPP) [Time] 13.5 s 11.7-14.9 [facility] [place] Work Phone: [phone] Laboratory - Hematology and Cell countson 01-06-2022 Erythrocyte distribution width (RBC) [Entitic vol] 43.8 fL 35.1-43.9 [facility] Work Phone: [phone] Erythrocyte distribution width (RBC) [Ratio] 12.2 % 11.6-14.6 [facility] Work Phone: [phone] Immature granulocytes/100 WBC (Bld) 0.300 % 0.0-0.9 [facility] Work Phone: [phone] Comment on above: IG% - Immature Granu locytes (promyelocytes, myelocytes and metamyelocytes) > 1% indicates that a LEFT SHIFT is Present. MCH (RBC) [Entitic mass] 34.4 pg 27.0-32.0 [facility] Work Phone: Nucleated RBC/100 WBC (Bld) [Ratio] 0 % 0-5 [facility] Work Phone: [phone] MCHC Auto (RBC) [Mass/Vol]on 01-06-2022 MCHC (RBC) [Mass/Vol] 35.2 g/dL 32-36 [facility] Work Phone: No Panel Informationon 01-06 Estimated Creatinine Clearance Calc 82.80 ml/min [facility] Work Phone: [phone] Estimated GFR (MDRD) Amer 85 mL/min >60 [facility] Work Phone: Comment on above: GFR Calc Estimated GFR (MDRD) Non-Af Amer 70 mL/min >60 [facility] Work Phone: Comment on above: Non- GFR Calc Platelets bldon 01-06-2022 Platelets (Bld) [#/Vol] 219 10*3/uL 150-450 [facility] Work Phone: Serum or plasma C reactive p rotein measurement (mass/volume)on 01-06-2022 CRP [Mass/Vol] mg/L 0.0-3.0 [facility] Work Phone: Comment on above: C-Reactive Protein ( CRP) provides useful information for thediagnosis, therapy and monitoring of inflammatory processesand associated diseases. For the evaluation of Relative Riskfor Cardiovascular Disease, a High Sensitivity CRP (HSCRP)should be ordered. Serum or plasma albumin zo urement (mass/volume)on 01-06-2022 Albumin [Mass/Vol] 3.9 g/dL 3.2-5.0 [facility] Work Phone: Serum or plasma calcium zo urement (mass/volume)on 01-06-2022 Calcium [Mass/Vol] 8.9 mg/dL 8.5-10.1 [facility] Work Phone: Serum or plasma creatinine m easurement (mass/volume)on 01-06-2022 Creatinine [Mass/Vol] 1.20 mg/dL 0.70-1.30 [facility] Work Phone: Comment on above: The validity of the calculated GFR & GFRAA in patients over 70 years has not been determined. Clinical correlation is essential. Serum or plasma urea nitroge n measurement (mass/volume)on 01-06-2022 Urea nitrogen [Mass/Vol] 9 mg/dL 7-18 [facility] Work Phone: Thin prep Papanicolaou smear with manual screeningon 01-06-2022 Thin prep Papanicolaou smear with manual screening 280 U/L 87-241 [facility] Work Phone: [phone] Thin prep Papanicolaou smear with manual screening 28 U/L 15-37 [facility] Work Phone: Comment on above: Slight Hemolysis, Re sult may be falsely increased. Thin prep Papanicolaou smear with manual screening 6 5-15 [facility] Work Phone: Absolute lymphocyte counton 01-02-2022 Lymphocytes Auto (Unsp spec) [#/Vol] 2.63 10*3/uL 0.83-4.51 [facility] Work Phone: Basophil percentageon 2021 Basophils/100 WBC (Bld) 0.8 % 0-1 [facility] Work Phone: Eosinophils/100 WBC (Bld) 2.5 % 0-5 [facility] Work Phone: Neutrophils (Bld) [#/Vol] 3.2 10*3/uL 2.0-7.7 [facility] Work Phone: Neutrophils/100 WBC (Bld) 49.5 % 47-70 [facility] Work Phone: WBC (Bld) [#/Vol] 6.5 10*3/uL 4.4-11.0 [facility] Work Phone: Blood erythrocytes count (nu mber/volume)on 01-02-2022 RBC (Bld) [#/Vol] 4.47 10*6/uL 4.6-6.2 [facility] Work Phone: Blood hemoglobin measurement (mass/volume)on 01-02-2022 Hemoglobin (Bld) [Mass/Vol] 15.2 g/dL 13.0-16.5 [facility] Work Phone: Blood lymphocytes/100 leukoc yteson 01-02-2022 Lymphocytes/100 WBC (Bld) 40.8 % 19-41 [facility] Work Phone: [phone] Blood monocytes/100 leukocyt eson 01-02-2022 Monocytes/100 WBC (Bld) 5.9 % 0-10 [facility] Work Phone: [phone] Blood platelet mean volumeon 01-02-2022 Platelet mean volume (Bld) [Entitic vol] 13.0 fL 6.2-12.0 [facility] Work Phone: Determination of erythrocyte mean corpuscular volume (MCV)on 01-02-2022 MCV (RBC) [Entitic vol] 98.0 fL 80-94 [facility] Work Phone: [phone] Hematocrit Auto (Bld) [Volum e fraction]on 01-02-2022 Hematocrit (Bld) [Volume fraction] 43.8 % 40-54 [facility] Work Phone: Laboratory - Hematology and Cell countson 01-02-2022 Erythrocyte distribution width (RBC) [Entitic vol] 43.8 fL 35.1-43.9 [facility] Work Phone: [phone] Erythrocyte distribution width (RBC) [Ratio] 12.1 % 11.6-14.6 [facility] Work Phone: [phone] Immature granulocytes/100 WBC (Bld) 0.500 % 0.0-0.9 [facility] Work Phone: [phone] Comment on above: IG% - Immature Granu locytes (promyelocytes, myelocytes and metamyelocytes) > 1% indicates that a LEFT SHIFT is Present. MCH (RBC) [Entitic mass] 34.0 pg 27.0-32.0 [facility] Work Phone: [phone] Nucleated RBC/100 WBC (Bld) [Ratio] 0 % 0-5 [facility] Work Phone: [phone] MCHC Auto (RBC) [Mass/Vol]on 01-02-2022 MCHC (RBC) [Mass/Vol] 34.7 g/dL 32-36 [facility] Work Phone: Platelets bldon 01-02-2022 Platelets (Bld) [#/Vol] 172 10*3/uL 150-450 [facility] Work Phone: Basophil percentageon 2021 Chloride [Moles/Vol] 110 mmol/L 98-107 [facility] [place] Work Phone: Glucose [Mass/Vol] 83 mg/dL 74-106 [facility] Work Phone: [phone] Potassium [Moles/Vol] 3.6 mmol/L 3.5-5.1 [facility] Work Phone: Comment on above: Slight Hemolysis, Re sult may be falsely increased. Sodium [Moles/Vol] 141 mmol/L 136-145 [facility] Work Phone: Laboratory - Chemistry and C hemistry - challengeon 01-01-2022 CO2 [Moles/Vol] 26.0 mmol/L 21.0-32.0 [facility] Work Phone: Urea nitrogen/Creatinine [Mass ratio] 13.6 mg/mg 10-20 [facility] Work Phone: No Panel Informationon 01-01 Estimated Creatinine Clearance Calc 84.20 ml/min [facility] Work Phone: Estimated GFR (MDRD) Amer 87 mL/min >60 [facility] Work Phone: [phone] Comment on above: GFR Calc Estimated GFR (MDRD) Non-Af Amer 72 mL/min >60 [facility] Work Phone: Comment on above: Non- GFR Calc Serum or plasma calcium zo urement (mass/volume)on 01-01-2022 Calcium [Mass/Vol] 8.1 mg/dL 8.5-10.1 [facility] Work Phone: Serum or plasma creatinine m easurement (mass/volume)on 01-01-2022 Creatinine [Mass/Vol] 1.18 mg/dL 0.70-1.30 [facility] Work Phone: Comment on above: The validity of the calculated GFR & GFRAA in patients over 70 years has not been determined. Clinical correlation is essential. Serum or plasma urea nitroge n measurement (mass/volume)on 01-01-2022 Urea nitrogen [Mass/Vol] 16 mg/dL 7-18 [facility] Work Phone: Thin prep Papanicolaou smear with manual screeningon 01-01-2022 Thin prep Papanicolaou smear with manual screening 5 5-15 [facility] Work Phone: Absolute lymphocyte counton 12-31-2021 Lymphocytes Auto (Unsp spec) [#/Vol] 2.86 10*3/uL 0.83-4.51 [facility] Work Phone: Basophil percentageon 2021 Basophils/100 WBC (Bld) 0.7 % 0-1 [facility] Work Phone: Bilirubin [Mass/Vol] 0.60 mg/dL 0.20-1.00 [facility] [place] Work Phone: Comment on above: For patients on eltr ombopag therapy, use of Dimension [place] TBIL is not recommended. Chloride [Moles/Vol] 106 mmol/L 98-107 [facility] [place] Work Phone: Eosinophils/100 WBC (Bld) 1.5 % 0-5 [facility] Work Phone: Glucose [Mass/Vol] 85 mg/dL 74-106 [facility] Work Phone: Neutrophils (Bld) [#/Vol] 5.4 10*3/uL 2.0-7.7 [facility] Work Phone: Neutrophils/100 WBC (Bld) 59.2 % 47-70 [facility] Work Phone: Potassium [Moles/Vol] 3.6 mmol/L 3.5-5.1 [facility] Work Phone: Comment on above: Moderate Hemolysis, Result may be falsely increased. Protein [Mass/Vol] 7.6 g/dL 6.4-8.2 [facility] Work Phone: [phone] Sodium [Moles/Vol] 140 mmol/L 136-145 [facility] Work Phone: [phone] WBC (Bld) [#/Vol] 9.1 10*3/uL 4.4-11.0 [facility] Work Phone: [phone] Blood erythrocytes count (nu mber/volume)on 12-31-2021 RBC (Bld) [#/Vol] 4.91 10*6/uL 4.6-6.2 [facility] Work Phone: [phone] Blood hemoglobin measurement (mass/volume)on 12-31-2021 Hemoglobin (Bld) [Mass/Vol] 17.0 g/dL 13.0-16.5 [facility] Work Phone: [phone] Blood lymphocytes/100 leukoc yteson 12-31-2021 Lymphocytes/100 WBC (Bld) 31.3 % 19-41 [facility] Work Phone: [phone] Blood monocytes/100 leukocyt eson 12-31-2021 Monocytes/100 WBC (Bld) 6.9 % 0-10 [facility] Work Phone: [phone] Blood platelet mean volumeon 12-31-2021 Platelet mean volume (Bld) [Entitic vol] 12.6 fL 6.2-12.0 [facility] Work Phone: [phone] Determination of erythrocyte mean corpuscular volume (MCV)on 12-31-2021 MCV (RBC) [Entitic vol] 98.2 fL 80-94 [facility] Work Phone: [phone] Direct bilirubinon Bilirubin.direct [Mass/Vol] 0.09 mg/dL 0.00-0.30 [facility] Work Phone: [phone] Hematocrit Auto (Bld) [Volum e fraction]on 12-31-2021 Hematocrit (Bld) [Volume fraction] 48.2 % 40-54 [facility] Work Phone: INR in Blood by Coagulation assayon 12-31-2021 INR Coag (Bld) [Relative time] 1.0 {INR} [facility] Work Phone: [phone] Laboratory - Chemistry and C hemistry - challengeon 12-31-2021 ALP [Catalytic activity/Vol] 56 U/L 45-117 [facility] Work Phone: [phone] ALT [Catalytic activity/Vol] 66 U/L 16-61 [facility] Work Phone: [phone] CO2 [Moles/Vol] 26.0 mmol/L 21.0-32.0 [facility] Work Phone: Globulin (S) [Mass/Vol] 3.3 g/dL 2.2-4.2 [facility] Work Phone: [phone] Lipase [Catalytic activity/Vol] 134 U/L 73-393 [facility] Work Phone: [phone] Urea nitrogen/Creatinine [Mass ratio] 17.2 mg/mg 10-20 [facility] Work Phone: Laboratory - Coagulationon 0 12-31-2021 aPTT Coag (Bld) [Time] 31.5 s 24.1-36.2 [facility] Work Phone: [phone] PT Coag (PPP) [Time] 12.7 s 11.7-14.9 [facility] [place] Work Phone: [phone] Laboratory - Hematology and Cell countson 12-31-2021 Erythrocyte distribution width (RBC) [Entitic vol] 44.1 fL 35.1-43.9 [facility] Work Phone: [phone] Erythrocyte distribution width (RBC) [Ratio] 12.1 % 11.6-14.6 [facility] Work Phone: [phone] Immature granulocytes/100 WBC (Bld) 0.400 % 0.0-0.9 [facility] Work Phone: Comment on above: IG% - Immature Granu locytes (promyelocytes, myelocytes and metamyelocytes) > 1% indicates that a LEFT SHIFT is Present. MCH (RBC) [Entitic mass] 34.6 pg 27.0-32.0 [facility] Work Phone: Nucleated RBC/100 WBC (Bld) [Ratio] 0 % 0-5 [facility] Work Phone: [phone] MCHC Auto (RBC) [Mass/Vol]on 12-31-2021 MCHC (RBC) [Mass/Vol] 35.3 g/dL 32-36 [facility] Work Phone: No Panel Informationon 12-31 Estimated Creatinine Clearance Calc 77.63 ml/min [facility] Work Phone: Estimated GFR (MDRD) Amer 79 mL/min >60 [facility] Work Phone: Comment on above: GFR Calc Estimated GFR (MDRD) Non-Af Amer 65 mL/min >60 [facility] Work Phone: Comment on above: Non- GFR Calc Platelets bldon 12-31-2021 Platelets (Bld) [#/Vol] 177 10*3/uL 150-450 [facility] Work Phone: Serum or plasma albumin zo urement (mass/volume)on 12-31-2021 Albumin [Mass/Vol] 4.3 g/dL 3.2-5.0 [facility] Work Phone: Serum or plasma calcium zo urement (mass/volume)on 12-31-2021 Calcium [Mass/Vol] 9.6 mg/dL 8.5-10.1 [facility] Work Phone: [phone] Serum or plasma creatinine m easurement (mass/volume)on 12-31-2021 Creatinine [Mass/Vol] 1.28 mg/dL 0.70-1.30 [facility] Work Phone: Comment on above: The validity of the calculated GFR & GFRAA in patients over 70 years has not been determined. Clinical correlation is essential. Serum or plasma urea nitroge n measurement (mass/volume)on 12-31-2021 Urea nitrogen [Mass/Vol] 22 mg/dL 7-18 [facility] Work Phone: Thin prep Papanicolaou smear with manual screeningon 12-31-2021 Thin prep Papanicolaou smear with manual screening 33 U/L 15-37 [facility] Work Phone: Comment on above: Moderate Hemolysis, Result may be falsely increased. Thin prep Papanicolaou smear with manual screening 8 5-15 [facility] Work Phone: Absolute lymphocyte counton 12-02-2021 Lymphocytes Auto (Unsp spec) [#/Vol] 3.67 10*3/uL 0.83-4.51 [facility] Work Phone: Basophil percentageon 2021 Basophils/100 WBC (Bld) 0.9 % 0-1 [facility] Work Phone: Chloride [Moles/Vol] 103 mmol/L 98-107 [facility] [place] Work Phone: Eosinophils/100 WBC (Bld) 1.2 % 0-5 [facility] Work Phone: Glucose [Mass/Vol] 89 mg/dL 74-106 [facility] Work Phone: Neutrophils (Bld) [#/Vol] 6.1 10*3/uL 2.0-7.7 [facility] Work Phone: Neutrophils/100 WBC (Bld) 57.0 % 47-70 [facility] Work Phone: Potassium [Moles/Vol] 3.8 mmol/L 3.5-5.1 [facility] Work Phone: Sodium [Moles/Vol] 138 mmol/L 136-145 [facility] Work Phone: WBC (Bld) [#/Vol] 10.6 10*3/uL 4.4-11.0 [facility] Work Phone: Blood erythrocytes count (nu mber/volume)on 12-02-2021 RBC (Bld) [#/Vol] 5.85 10*6/uL 4.6-6.2 [facility] Work Phone: Blood hemoglobin measurement (mass/volume)on 12-02-2021 Hemoglobin (Bld) [Mass/Vol] 20.8 g/dL 13.0-16.5 [facility] Work Phone: Comment on above: CRITICAL VALUE VERIF IED. CALLED TO MAKEDA [employer]SHINE12/02/21 1045 Fariba Sweeney.RESULTS READ BACK BY SAME . Blood lymphocytes/100 leukoc yteson 12-02-2021 Lymphocytes/100 WBC (Bld) 34.5 % 19-41 [facility] Work Phone: [phone] Blood monocytes/100 leukocyt eson 12-02-2021 Monocytes/100 WBC (Bld) 6.1 % 0-10 [facility] Work Phone: Blood platelet mean volumeon 12-02-2021 Platelet mean volume (Bld) [Entitic vol] 11.6 fL 6.2-12.0 [facility] Work Phone: Determination of erythrocyte mean corpuscular volume (MCV)on 12-02-2021 MCV (RBC) [Entitic vol] 97.6 fL 80-94 [facility] Work Phone: Hematocrit Auto (Bld) [Volum e fraction]on 12-02-2021 Hematocrit (Bld) [Volume fraction] 57.1 % 40-54 [facility] Work Phone: [phone] INR in Blood by Coagulation assayon 12-02-2021 INR Coag (Bld) [Relative time] 1.0 {INR} [facility] Work Phone: Laboratory - Chemistry and C hemistry - challengeon 12-02-2021 CO2 [Moles/Vol] 28.0 mmol/L 21.0-32.0 [facility] Work Phone: Urea nitrogen/Creatinine [Mass ratio] 9.4 mg/mg 10-20 [facility] Work Phone: [phone] Laboratory - Coagulationon 0 12-02-2021 aPTT Coag (Bld) [Time] 29.3 s 24.1-36.2 [facility] Work Phone: [phone] PT Coag (PPP) [Time] 13.4 s 11.7-14.9 [facility] [place] Work Phone: [phone] Laboratory - Hematology and Cell countson 12-02-2021 Erythrocyte distribution width (RBC) [Entitic vol] 43.5 fL 35.1-43.9 [facility] Work Phone: [phone] Erythrocyte distribution width (RBC) [Ratio] 11.9 % 11.6-14.6 [facility] Work Phone: [phone] Immature granulocytes/100 WBC (Bld) 0.300 % 0.0-0.9 [facility] Work Phone: [phone] Comment on above: IG% - Immature Granu locytes (promyelocytes, myelocytes and metamyelocytes) > 1% indicates that a LEFT SHIFT is Present. MCH (RBC) [Entitic mass] 35.6 pg 27.0-32.0 [facility] Work Phone: [phone] Nucleated RBC/100 WBC (Bld) [Ratio] 0 % 0-5 [facility] Work Phone: [phone] MCHC Auto (RBC) [Mass/Vol]on 12-02-2021 MCHC (RBC) [Mass/Vol] 36.4 g/dL 32-36 [facility] Work Phone: [phone] Panel Informationon 12-02 Troponin I High Sensitivity 5 pg/mL 3.0-78.0 [facility] Work Phone: [phone] Comment on above: Please Note: New Dona t Units and Gender Specific Reference Ranges. For more information see Policy Stat Procedure [place] High Sensitivity Troponin (TNIH) and attachments. Estimated Creatinine Clearance Calc 60.14 ml/min [facility] Work Phone: [phone] Estimated GFR (MDRD) Amer 61 mL/min >60 [facility] Work Phone: [phone] Comment on above: GFR Calc Estimated GFR (MDRD) Non-Af Amer 50 mL/min >60 [facility] Work Phone: Comment on above: Non- GFR Calc Platelets bldon 12-02-2021 Platelets (Bld) [#/Vol] 259 10*3/uL 150-450 [facility] Work Phone: Review by pathologiston 11-05 Pathologist review Steve (Unsp spec) [Interp] Lianne thakkar [facility] Work Phone: [phone] Pathologist review Steve (Unsp spec) [Interp] Reviewed [facility] Work Phone: Comment on above: Previous reported re sult: Lianne thakkar Edited by: RGOOD on 12/03/21:1321Polycythemia MacrocytosisClinical correlation necessary.Zenon Alejo M.D. 12/03/21This case was reviewed with Dr. Stiles who concurs with the above diagnosis. AMENDED REPORT 12/03/21 1321 PATH REV previously reported as: Lianne thakkar Serum or plasma calcium zo urement (mass/volume)on 12-02-2021 Calcium [Mass/Vol] 10.6 mg/dL 8.5-10.1 [facility] Work Phone: Serum or plasma creatinine m easurement (mass/volume)on 12-02-2021 Creatinine [Mass/Vol] 1.60 mg/dL 0.70-1.30 [facility] Work Phone: Comment on above: The validity of the calculated GFR & GFRAA in patients over 70 years has not been determined. Clinical correlation is essential. Serum or plasma urea nitroge n measurement (mass/volume)on 12-02-2021 Urea nitrogen [Mass/Vol] 15 mg/dL -18 [facility] Work Phone: Thin prep Papanicolaou smear with manual screeningon 12-02-2021 Thin prep Papanicolaou smear with manual screening 7 - [facility] Work Phone: [phone] BMPon 03-19-2021 Anion gap [Moles/Vol] 10 mmol/L Normal 5-16 [facility] [place] Comment on above: Order Comment: Eulalio s: M Performed By: #### L [id number], [id number], L500.35273, L500.09370 #### [facility] [employer] [place] [address] Calcium [Mass/Vol] 10.3 mg/dL Normal 8.5-10.5 [facility] Comment on above: Order Comment: Campu s: M Result Comment: NOTE NEW NORMAL RANGE DUE TO REAGENT CHANGE Performed By: #### L 500.47418, L500.79209, L500.91186, L500.85750 #### [facility] [address] [place] [address] Chloride [Moles/Vol] 109 mmol/L High 98-107 [facility] Comment on above: Order Comment: Campu s: M Performed By: #### L 500.52708, L500.85270, L500.45709, L500.12486 #### [facility] [address] [place] [address] CO2 [Moles/Vol] 23.0 mmol/L Normal 21-32 [facility] Comment on above: Order Comment: Campu s: M Performed By: #### L 500.32749, [id number], L500.19582, L500.09332 #### [facility] [employer] [place] [address] Creatinine [Mass/Vol] 0.85 mg/dL Normal 0.5-1.4 [facility] Comment on above: Order Comment: Campu s: M Result Comment: NOTE NEW NORMAL RANGE DUE TO REAGENT CHANGE Patients receiving either N-Acetylcysteine (NAC) or Metamizole prior to venipuncture, may have falsely depressed results. Performed By: #### L 500.78074, L500.68624, L500.61074, L500.08586 #### [facility] LABORATORY [employer] [place] [address] Glucose [Mass/Vol] 94 mg/dL Normal 70-100 [facility] Comment on above: Order Comment: Campu s: M Result Comment: 70-1 00- Normal Fasting; 100-125 Impaired Fasting; greater than 126 on more than one result- Diabetes. ADA guidelines. Results may be falsely elevated after the administration of Sulfapyridine. Results may be falsely depressed after the administration of Sulfasalazine. Performed By: #### L 500.05979, L500.15412, L500.06427, L500.69412 #### [facility] [address] [place] [address] Potassium [Moles/Vol] 4.1 mmol/L Normal 3.5-5.1 [facility] Comment on above: Order Comment: Campu s: M Result Comment: Slig ht Hemolysis, Result may be affected. Performed By: #### L 500.77258, L500.74939, L500.34652, L500.78723 #### [facility] [address] [place] [address] Sodium [Moles/Vol] 142 mmol/L Normal 136-145 [facility] Comment on above: Order Comment: Campu s: M Performed By: #### L 500.79052, L500.58409, L500.52964, L500.57996 #### [facility] [address] [place] [address] Urea nitrogen [Mass/Vol] 12 mg/dL Normal 7-26 [facility] Comment on above: Order Comment: Campu s: M Performed By: #### L 500.10671, L500.65812, L500.64095, L500.07519 #### [facility] [address] [place] [address] Urea nitrogen/Creatinine [Mass ratio] 14 mg/mg Low 15-24 [facility] Comment on above: Order Comment: Campu s: M Performed By: #### L 500.52879, L500.73915, L500.10309, L500.79214 #### [facility] [address] [place] [address] CBC W/DIFFon 03-19-2021 BASO ABS 0.10 K/CU MM Normal 0-0.2 [facility] Comment on above: Order Comment: Campu s: M Performed By: #### L 200.48218 ####[facility] [id number] [place], [place] [address]Lr# [phone] Basophils/100 WBC (Bld) 1.1 % Normal 0-2 M [facility] Comment on above: Order Comment: Campu s: M Performed By: #### L 200.33093 ####[facility] [id number] [place], [place] [address]Ph# [phone] EOS ABS 0.10 K/CU MM Normal 0-0.5 [facility] Comment on above: Order Comment: Campu s: M Performed By: #### L 200.53123 ####[facility] [id number] [place], [place] [address]Ph# [phone] Eosinophils/100 WBC (Bld) 1.2 % Normal 0-5 [facility] Comment on above: Order Comment: Campu s: M Performed By: #### L 200.96450 ####[address] [address]Mj# [phone] Erythrocyte distribution width (RBC) [Ratio] 12.4 % Normal 11-14.5 [facility] Comment on above: Order Comment: Campu s: M Performed By: #### L 200.75119 ####[facility] [id number] [place], [place] [address]Ph# [phone] Hematocrit (Bld) [Volume fraction] 48.9 % Normal 41.0-53.0 [facility] Comment on above: Order Comment: Campu s: M Performed By: #### L 200.60660 ####[facility] [id number] [place], [place] [address]Ph# [phone] Hemoglobin (Bld) [Mass/Vol] 17.6 g/dL High 13.5-17.5 [facility] Comment on above: Order Comment: Campu s: M Performed By: #### L 200.11889 ####[facility] [id number] [place], [place] [address]Nq# [phone] IMMATR GRAN ABS 0.10 K/CU MM Normal Less than 2 [facility] Comment on above: Order Comment: Campu s: M Performed By: #### L 200.62922 ####[facility] [id number] [place], [place] [address]Ph# [phone] IMMATURE GRAN % 1.0 % Normal Less than 2 [facility] Comment on above: Order Comment: Campu s: M Performed By: #### L 200.31416 ####[place] [address]Ph# [phone] LYMPH ABS 3.40 K/CU MM Normal 0.9-4.4 [facility] Comment on above: Order Comment: Campu s: M Performed By: #### L 200.36776 ####[facility] Z[address]XRSZIEF[address] [place], [place] [address]Ph# [phone] Lymphocytes/100 WBC (Bld) 46.3 % High 20-40 [facility] Comment on above: Order Comment: Campu s: M Performed By: #### L 200.71214 ####[facility] TYHUOCRXSZ[address] [place], [place] [address]Ph# [phone] MCHC (RBC) [Mass/Vol] 36.0 g/dL Normal 32.0-36.0 [facility] Comment on above: Order Comment: Campu s: M Performed By: #### L 200.57684 ####[facility] [id number] [place] [address]Cv# [phone] MCV (RBC) [Entitic vol] 97.2 fL Normal 80.0-99.0 [facility] Comment on above: Order Comment: Campu s: M Performed By: #### L 200.98246 ####[facility] [id number] [place], [place] [address]Ht# [phone] MONO ABS 0.50 K/CU MM Normal 0.1-1.1 [facility] Comment on above: Order Comment: Campu s: M Performed By: #### L 200.27912 ####[facility] FOBENYSYZS[address] [place] [address]Zh# [phone] Monocytes/100 WBC (Bld) 7.3 % Normal 2-10 M [facility] Comment on above: Order Comment: Campu s: M Performed By: #### L 200.66156 ####[place] [address]Ph# [phone] NEUTROPHIL ABS 3.10 K/CU MM Normal 2.0-8.3 [facility] Comment on above: Order Comment: Campu s: M Performed By: #### L 200.60707 ####[facility] [id number] [place] [address]Fm# [phone] Neutrophils/100 WBC (Bld) 43.1 % Low 45-75 [facility] Comment on above: Order Comment: Campu s: M Performed By: #### L 200.73181 ####[facility] [id number] [place] [address]Xd# [phone] Nucleated RBC/100 WBC (Bld) [Ratio] 0.0 % Normal Less than 1 [facility] Comment on above: Order Comment: Campu s: M Performed By: #### L 200.16133 ####[facility] [id number] [place] [address]Bo# [phone] Platelet mean volume (Bld) [Entitic vol] 12.1 fL Normal 9.4-12.4 [facility] Comment on above: Order Comment: Campu s: M Performed By: #### L 200.83362 ####[facility] [id number] [place], [place] [address]Ph# [phone] PLT 171 K/CU MM Normal 150-450 [facility] Comment on above: Order Comment: Campu s: M Performed By: #### L 200.71836 ####[facility] KLQZHYNGBX5821 [place], [place] [address]Ye# [phone] RBC 5.03 M/CU MM Normal 4.50-6.00 [facility] Comment on above: Order Comment: Campu s: M Performed By: #### L 200.56904 ####[facility] [id number] [place], [place] [address]Pj# [phone] WBC 7.2 K/CUMM Normal 4.5-11.0 [facility] Comment on above: Order Comment: Campu s: M Performed By: #### L 200.24348 ####[facility] VYLHYOTKNQ8122 [place], [place] [address]Qq# [phone] CT [facility] ABD/PEL W IV CONTRAST ONLY [...] soft tissues:Unremarkable. The abdominal wall is intact Deputy Administrator film:No additional abnormality IMPRESSION: No acute abnormality Hepatic steatosis This report was electronically signed by Mandeep Colmenares MD 03/19/2021 1:08 PM Reported By: MANDEEP COLMENARES M.D. Signed By: MANDEEP COLMENARES M.D. [facility] 03-19-2021 EMERGENCY PHYSICIAN REPORT This is a preliminary report only, as the practitioner review and authentication has not occurred. [facility] ER PHYSICIAN ASSESSMENT RECORDS : FlexChartData Event Time: 03/19/2021 11:15 Status: Signed [facility] Andrew Mclean [[id number]] Attending Physician 41 / M / 1980 Chart (V2b) Chart created at 03/19/2021 11:08 by Bryan Schuster Chart closed at 03/19/2021 13:58 Entry in Emergency Department at 03/19/2021 07:41, departure at 03/19/2021 14:06 Patient Name: Andrew Mclean Record Number: [id number] Date: 03/19/2021 11:08 Entered Department at: 03/19/2021 [...] not have any symptoms throughout the day [facility] PATIENT NAME: ANDREW MCLEAN [facility] [place] MEDICAL REC #: [id number] [place] [address] EMERGENCY DEPARTMENT REPORT EMERGENCY DEPARTMENT PHYSICIAN yesterday, [...] 4.1 BUN/CREA: 14; CALCIUM TOTAL: 10.3 Mg/Dl [facility] [place] MEDICAL REC #: [id number] [place] [address] EMERGENCY DEPARTMENT REPORT EMERGENCY DEPARTMENT PHYSICIAN CBC [...] SGOT (AST): 100 U/L; SGPT (ALT): 259 [facility] PATIENT NAME: ANDREW MCLEAN [facility] [place] MEDICAL REC #: [id number] [place] [address] EMERGENCY DEPARTMENT REPORT EMERGENCY DEPARTMENT PHYSICIAN U/L; TP: 7.5 Gm/Dl Imaging Study Obtained: CT ABD/PEL W IV CONTRAST ONLY Imaging Study Obtained: CT ABD/PEL W IV (more content not included)... [facility]-2021 IF AMER Greater than 60 Normal [facility] Comment on above: Order Comment: Eulalio ying: Gregory Performed By: #### L 500.13939, L500.77772, L500.64053, L500.47253 #### [facility] [address] [place] [address] IF non-AFR AMER Greater than 60 Normal [facility] Comment on above: Order Comment: Campu s: M Performed By: #### L 500.39725, L500.32516, L500.49724, L500.27972 #### [facility] [address] [place], [place] [address] LIPASEon 03-19-2021 Lipase [Catalytic activity/Vol] 36 U/L Normal 12-60 [facility] Comment on above: Order Comment: Campu s: M Result Comment: NOTE NEW NORMAL RANGE DUE TO REAGENT CHANGE Performed By: #### L 500.36703, L500.41743, L500.86327, L500.67927 #### [facility] [address] [place] [address] LIVERon 03-19-2021 Albumin [Mass/Vol] 4.5 g/dL Normal 3.2-5.0 [facility] Comment on above: Order Comment: Campu s: M Performed By: #### L 500.91235, L500.91482, L500.25363, L500.11638 #### [facility] [address] [place] [address] Albumin/Globulin [Mass ratio] 1.5 {ratio} Normal 0.8-2.0 [facility] Comment on above: Order Comment: Campu s: M Performed By: #### L 500.97258, L500.95726, L500.48496, L500.34520 #### [facility] [address] [place] [address] ALK PHOS 64 U/L Normal 45-117 [facility] Comment on above: Order Comment: Campu s: M Performed By: #### L 500.82812, L500.85324, L500.35816, L500.41963 #### [facility] [address] [place] [address] ALT [Catalytic activity/Vol] 259 U/L High 13-61 [facility] Comment on above: Order Comment: Campu s: M Result Comment: RESU LTS MAY BE FALSELY DEPRESSED AFTER THE ADMINISTRATION OF SULFASALAZINE AND/OR SULFAPYRIDINE. Performed By: #### L 500.51527, L500.86853, L500.56228, L500.68231 #### [facility] [address] [place] [address] AST [Catalytic activity/Vol] 100 U/L High 8-34 [facility] Comment on above: Order Comment: Campu s: M Result Comment: RESU LTS MAY BE FALSELY DEPRESSED AFTER THE ADMINISTRATION OF SULFASALAZINE AND/OR SULFAPYRIDINE. Performed By: #### L 500.28097, L500.29942, L500.23739, L500.65341 #### [facility] [address] [place] [address] BILI DIRECT 0.1 MG/DL Normal 0.00-0.36 [facility] Comment on above: Order Comment: Campu s: M Result Comment: NOTE NEW NORMAL RANGE DUE TO REAGENT CHANGE Performed By: #### L 500.78475, L500.92730, L500.45254, L500.90058 #### [facility] [address] [place] [address] BILI TOTAL 0.30 MG/DL Normal 0.2-1.0 [facility] Comment on above: Order Comment: Campu s: M Performed By: #### L 500.14604, L500.02009, L500.93876, L500.08776 #### [facility] [address] [place], [place] [address] Globulin (S) [Mass/Vol] 3.0 g/dL Normal 2.2-4.2 [facility] Comment on above: Order Comment: Campu s: M Performed By: #### L 500.34484, L500.24140, L500.23649, L500.84888 #### [facility] [address] [place] [address] Protein [Mass/Vol] 7.5 g/dL Normal 6.0-8.5 [facility] Comment on above: Order Comment: Campu s: M Performed By: #### L 500.82241, L500.59204, L500.84340, L500.36106 #### [facility] [address] [place] [address] UA COMPLETEon 03-19-2021 Color (U) Yellow Normal [facility] Comment on above: Order Comment: Campu s: M Performed By: #### L 600.60029 ####[facility] [id number] [place] [address]Rs# [phone] Glucose (U) [Mass/Vol] Negative Normal NORMAL Me [facility] Comment on above: Order Comment: Campu s: M Performed By: #### L 600.53218 ####[facility] [id number] [place] [address]Rc# [phone] UA APPEARANCE Clear Normal CLEAR [facility] Comment on above: Order Comment: Campu s: M Performed By: #### L 600.95255 ####[facility] SNBKNTAJTI3397 [place], [place] [address]Hv# [phone] UA BILIRUBIN Negative Normal NEGATIVE [facility] Comment on above: Order Comment: Campu s: M Performed By: #### L 600.07987 ####[facility] UFCHGWOKIX5954 [place], [place] [address]Hs# [phone] UA BLOOD Negative Normal NEGATIVE [facility] Comment on above: Order Comment: Campu s: M Performed By: #### L 600.86992 ####[facility] YPUNBLMTXZ7502 [place], [place] [address]Kr# [phone] UA KETONE 5 Normal NEGATIVE [facility] Comment on above: Order Comment: Campu s: M Performed By: #### L 600.27828 ####[facility] [id number] [place] [address]Sv# [phone] UA LK ESTERASE Negative Normal NEGATIVE [facility] Comment on above: Order Comment: Campu s: M Performed By: #### L 600.92068 ####[facility] [id number] [place] [address]Eb# [phone] UA NITRITE Negative Normal NEGATIVE [facility] Comment on above: Order Comment: Campu s: M Performed By: #### L 600.73237 ####[address] [address]Ln# [phone] UA PH 5.0 Normal 5-6 [facility] Comment on above: Order Comment: Campu s: M Performed By: #### L 600.09920 ####[address] [address]Lw# [phone] UA PROTEIN Negative Normal NEGATIVE [facility] Comment on above: Order Comment: Campu s: M Performed By: #### L 600.92121 ####[address] [address]Yv# [phone] UA SPEC GRAV 1.026 Normal 1.005-1.030 [facility] Comment on above: Order Comment: Campu s: M Performed By: #### L 600.29259 ####[facility] [id number] [place] [address]Op# [phone] UA UROBILINOGEN Negative Normal NORMAL [facility] Comment on above: Order Comment: Campu s: M Performed By: #### L 600.20268 ####[facility] [id number] [place] [address]Ww# [phone] BMPon 10-29-2020 Anion gap [Moles/Vol] 5 mmol/L Normal 5-16 [facility] Comment on above: Order Comment: Campu s: M Performed By: #### L 500.33441, L500.97727 #### [facility] [address] [place] [address] Calcium [Mass/Vol] 9.2 mg/dL Normal 8.5-10.5 [facility] Comment on above: Order Comment: Campu s: M Result Comment: NOTE NEW NORMAL RANGE DUE TO REAGENT CHANGE Performed By: #### L 500.78858, L500.47575 #### [facility] [address] [place] [address] Chloride [Moles/Vol] 111 mmol/L High 98-107 [facility] Comment on above: Order Comment: Campu s: M Performed By: #### L 500.88683, L500.86406 #### [facility] [address] [place] [address] CO2 [Moles/Vol] 24.0 mmol/L Normal 21-32 [facility] Comment on above: Order Comment: Campu s: M Performed By: #### L 500.29217, L500.47962 #### [facility] [address] [place] [address] Creatinine [Mass/Vol] 0.91 mg/dL Normal 0.5-1.4 [facility] Comment on above: Order Comment: Campu s: M Result Comment: NOTE NEW NORMAL RANGE DUE TO REAGENT CHANGE Patients receiving either N-Acetylcysteine (NAC) or Metamizole prior to venipuncture, may have falsely depressed results. Performed By: #### L 500.35061, L500.76993 #### [facility] [address] [place], [place] [address] Glucose [Mass/Vol] 131 mg/dL High 70-100 [facility] Comment on above: Order Comment: Campu s: M Result Comment: 70-1 00- Normal Fasting; 100-125 Impaired Fasting; greater than 126 on more than one result- Diabetes. ADA guidelines. Results may be falsely elevated after the administration of Sulfapyridine. Results may be falsely depressed after the administration of Sulfasalazine. Performed By: #### L 500.44804, L500.30034 #### [facility] [employer] [place] [address] Potassium [Moles/Vol] 3.8 mmol/L Normal 3.5-5.1 [facility] Comment on above: Order Comment: Campu s: M Result Comment: Slig ht Hemolysis, Result may be affected. Performed By: #### L 500.21122, L500.88965 #### [facility] [address] [place] [address] Sodium [Moles/Vol] 140 mmol/L Normal 136-145 [facility] Comment on above: Order Comment: Campu s: M Performed By: #### L 500.96036, L500.01684 #### [facility] [address] [place] [address] Urea nitrogen [Mass/Vol] 16 mg/dL Normal 7-26 [facility] Comment on above: Order Comment: Campu s: M Performed By: #### L 500.40922, L500.74530 #### [facility] [address] [place], [place] [address] Urea nitrogen/Creatinine [Mass ratio] 18 mg/mg Normal 15-24 [facility] Comment on above: Order Comment: Campu s: M Performed By: #### L 500.24097, L500.27194 #### [facility] [address] [place], [place] [address] CBC W/DIFFon 10-29-2020 BASO ABS 0.10 K/CU MM Normal 0-0.2 [facility] Comment on above: Order Comment: Campu s: M Performed By: #### L 200.23782 ####[facility] OJONVQWVXT2749 [place] [address]Ph# [phone] Basophils/100 WBC (Bld) 1.0 % Normal 0-2 [facility] Comment on above: Order Comment: Campu s: M Performed By: #### L 200.22768 ####[facility] [id number] [place] [address]Se# [phone] EOS ABS 0.20 K/CU MM Normal 0-0.5 [facility] Comment on above: Order Comment: Campu s: M Performed By: #### L 200.10031 ####[facility] KCHKQUXXRC[address] [place], [place] [address]Ph# [phone] Eosinophils/100 WBC (Bld) 2.8 % Normal 0-5 [facility] Comment on above: Order Comment: Campu s: M Performed By: #### L 200.35391 ####[address] [address]Yx# [phone] Erythrocyte distribution width (RBC) [Ratio] 12.1 % Normal 11-14.5 [facility] Comment on above: Order Comment: Campu s: M Performed By: #### L 200.79647 ####[facility] [id number] [place], [place] [address]Ph# [phone] Hematocrit (Bld) [Volume fraction] 47.2 % Normal 41.0-53.0 [facility] Comment on above: Order Comment: Campu s: M Performed By: #### L 200.28145 ####[facility] VKNTLCJLML[address] [place], [place] [address]Ph# [phone] Hemoglobin (Bld) [Mass/Vol] 17.0 g/dL Normal 13.5-17.5 [facility] Comment on above: Order Comment: Campu s: M Performed By: #### L 200.37446 ####[facility] [id number] [place] [address]Fh# [phone] IMMATR GRAN ABS 0.00 K/CU MM Normal Less than 2 [facility] Comment on above: Order Comment: Campu s: M Performed By: #### L 200.26245 ####[facility] RUDIRZGHAY8608 [place], [place] [address]Cl# [phone] IMMATURE GRAN % 0.3 % Normal Less than 2 [facility] Comment on above: Order Comment: Campu s: M Performed By: #### L 200.60001 ####[address] [address]Ik# [phone] LYMPH ABS 4.00 K/CU MM Normal 0.9-4.4 [facility] Comment on above: Order Comment: Campu s: M Performed By: #### L 200.13707 ####[place] [address]Ph# [phone] Lymphocytes/100 WBC (Bld) 46.2 % High 20-40 [facility] Comment on above: Order Comment: Campu s: M Performed By: #### L 200.30531 ####[place] [address]Ph# [phone] MCHC (RBC) [Mass/Vol] 36.0 g/dL Normal 32.0-36.0 [facility] Comment on above: Order Comment: Campu s: M Performed By: #### L 200.48228 ####[facility] JLWJIQIOWS[address] [place] [address]Bq# [phone] MCV (RBC) [Entitic vol] 93.7 fL Normal 80.0-99.0 M [facility] Comment on above: Order Comment: Campu s: M Performed By: #### L 200.79212 ####[facility] [id number] [place] [address] 350[address]Yy# [phone] MONO ABS 0.60 K/CU MM Normal 0.1-1.1 [facility] Comment on above: Order Comment: Campu s: M Performed By: #### L 200.16912 ####[facility] SIYZIRUUBM0284 [place], [place] [address]Hz# [phone] Monocytes/100 WBC (Bld) 6.4 % Normal 2-10 M [facility] Comment on above: Order Comment: Campu s: M Performed By: #### L 200.53364 ####[facility] XIVYOQHHXV2158 [place], [place] [address]Sd# [phone] NEUTROPHIL ABS 3.80 K/CU MM Normal 2.0-8.3 [facility] Comment on above: Order Comment: Campu s: M Performed By: #### L 200.50605 ####[facility] [id number] [place], [place] [address]Ph# [phone] Neutrophils/100 WBC (Bld) 43.3 % Low 45-75 [facility] Comment on above: Order Comment: Campu s: M Performed By: #### L 200.89259 ####[address] [address]Ru# [phone] Nucleated RBC/100 WBC (Bld) [Ratio] 0.0 % Normal Less than 1 [facility] Comment on above: Order Comment: Campu s: M Performed By: #### L 200.75085 ####[facility] [id number] [place] [address]Nm# [phone] Platelet mean volume (Bld) [Entitic vol] 11.3 fL Normal 9.4-12.4 [facility] Comment on above: Order Comment: Campu s: M Performed By: #### L 200.41791 ####[facility] [id number] [place] [address]Rx# [phone] PLT 191 K/CU MM Normal 150-450 [facility] Comment on above: Order Comment: Campu s: M Performed By: #### L 200.40381 ####[facility] [id number] [place] [address]Mr# [phone] RBC 5.04 M/CU MM Normal 4.50-6.00 [facility] Comment on above: Order Comment: Campu s: M Performed By: #### L 200.31007 ####[facility] IUTPBQJZEG8144 [place], [place] [address]Vv# [phone] WBC 8.7 K/CUMM Normal 4.5-11.0 [facility] Comment on above: Order Comment: Eulalio ying: Gregory Performed By: #### L 200.89074 ####[facility] JWOFGVWQSO2371 [place], [place] [address]Rd# [phone] EKGon 10-29-2020 Electrocardiogram Procedure Date and Time: [...] By:Viviana MARTÍNEZ M.D.FACC Ayala DDandT: 10/29/20258 TDandT: [facility] PATIENT NAME: ANDREW MCLEAN [facility] [place] MEDICAL REC #: [id number] [place] [address] ADMIT DATE: DISCHARGE DATE: 10/29/20 ATTENDING PHY: Manda Jackson MD ELECTROCARDIOGRAM REPORT CLB cc: [facility] PATIENT NAME: ANDREW MCLEAN [facility] [address] [place] MEDICAL REC #: [id number] [place] [address] ADMIT DATE: DISCHARGE DATE: 10/29/20 ATTENDING NAVARROY: Manda Jackson MD ELECTROCARDIOGRAM REPORT Normal [facility] Dionne 10-29-2020 EMERGENCY PHYSICIAN REPORT This is a preliminary report only, as the practitioner review and authentication has not occurred. Normal [facility] ER PHYSICIAN ASSESSMENT RECORDS : FlexChartData Event Time: 10/29/2020 05:45 Status: Signed [facility] Andrew Mclean [[id number]] Attending Physician 40 / M / 1980 Chart (V2b) Chart created at 10/29/2020 05:40 by Manda Jackson Chart closed at 10/29/2020 05:58 Entry in Emergency Department at 10/29/2020 02:56, departure at 10/29/2020 05:55 Patient Name: Andrew Mclean Record Number: [id number] Date: 10/29/2020 05:40 Entered Department at: 10/29/2020 [...] Systems. All other systems reviewed and negative.. [facility] PATIENT NAME: ANDREW MCLEAN [address] [facility] [address] [place] MEDICAL REC #: [id number] [place] [address] EMERGENCY DEPARTMENT REPORT EMERGENCY DEPARTMENT PHYSICIAN Past [...] %; RBC: 5.04 M/Cu Mm; RDW: 12.1 [facility] PATIENT NAME: ANDREW MCLEAN [facility] MEDICAL REC #: [id number] [place] [address] EMERGENCY DEPARTMENT REPORT EMERGENCY DEPARTMENT PHYSICIAN TROPONIN [...] signed by Leonel Ackerman 10/29/2020 3:45 AM [facility] PATIENT NAME: ANDREW MCLEAN [address] [facility] [address] [place] MEDICAL REC #: [id number] [place] [id number] EMERGENCY DEPARTMENT REPORT EMERGENCY DEPARTMENT PHYSICIAN Reported [...] home. [facility] is instructed [facility] (more content not included)... [facility] IF AMER Greater than 60 Normal [facility] Comment on above: Order Comment: Asifu s: M Performed By: #### L 500.29907, L500.35274 ####[facility] [id number] [place], [place] [address]Zc# [phone] IF non-AFR AMER Greater than 60 Normal [facility] Comment on above: Order Comment: Asifu s: M Performed By: #### L 500.10309, L500.58015 ####[facility] [id number] [place], [place] [address]Or# [phone] PORTABLE CHESTon 10-29-2020 PORTABLE CHEST EXAMINATION: CHEST [...] MD Signed By: LEONEL ACKERMAN MD Normal [facility] TROPONIN Ion 10-29-2020 TROPONIN I 3.0 pg/mL Normal 0-54 [facility] Comment on above: Order Comment: Eulalio s: M Result Comment: NOTE NEW NORMAL RANGE DUE TO REAGENT CHANGE This assay uses different antibodies than our current assay, and assays, even by the same manager recruitment may recognize different regions of the antibody and cannot be used interchangeably. Expect results of this assay to run higher than the previous assay. Performed By: #### L 550.53459 #### [facility] [address] [place] [address] .Auto Diffon 10-02-2020 Basophil, Absolute 0.10 10 3/mcL Normal 0.00-0.27 Aul [facility] ([place]) Comment on above: Performed By: #### C BC, ADIFF, ANEU, CMP, GFR, LIP #### [address] [address] Basophils/100 WBC (Bld) 1.2 % Normal 0.0-2.5 A [facility] ([place]) Comment on above: Performed By: #### C BC, ADIFF, ANEU, CMP, GFR, LIP #### [address] [address] Eosinophil, Absolute 0.10 10 3/mcL Normal 0.00-0.65 A [facility] ([place]) Comment on above: Performed By: #### C BC, ADIFF, ANEU, CMP, GFR, LIP #### [address] [address] Eosinophils/100 WBC (Bld) 0.9 % Normal 0.0-6.0 [facility] ([place]) Comment on above: Performed By: #### C BC, ADIFF, ANEU, CMP, GFR, LIP #### [address] [address] Lymphocyte, Absolute 3.40 10 3/mcL Normal 0.90-4.32 A [facility] ([place]) Comment on above: Performed By: #### C BC, ADIFF, ANEU, CMP, GFR, LIP #### [address] [address] Lymphocytes/100 WBC (Bld) 39.0 % Normal 20.0-40.0 [facility] ([place]) Comment on above: Performed By: #### C BC, ADIFF, ANEU, CMP, GFR, LIP #### [address] [address] Monocyte, Absolute 0.50 10 3/mcL Normal 0.09-1.40 [facility] ([place]) Comment on above: Performed By: #### C BC, ADIFF, ANEU, CMP, GFR, LIP #### [address] [address] Monocytes/100 WBC (Bld) 5.9 % Normal 2.0-13.0 A [facility] ([place]) Comment on above: Performed By: #### C BC, ADIFF, ANEU, CMP, GFR, LIP #### [address] [address] Neutrophils/100 WBC (Bld) 53.0 % Normal 50.0-75.0 [facility] ([place]) Comment on above: Performed By: #### C BC, ADIFF, ANEU, CMP, GFR, LIP #### [address] [address] .GFRon 10-02-2020 GFR >60 Normal [facility] ([place]) Comment on above: Result Comment: GFR Population [...] BC, ADIFF, ANEU, CMP, GFR, LIP #### [address] [address] GFR Non- >60 Normal [facility] ([place]) Comment on above: Result Comment: GFR Population [...] BC, ADIFF, ANEU, CMP, GFR, LIP #### [address] [address] .NEUABSon 10-02-2020 Neutrophil, Absolute 4.60 10 3/mcL Normal 2.25-8.10 A [facility] ([place]) Comment on above: Performed By: #### C BC, ADIFF, ANEU, CMP, GFR, LIP #### [place] [id number] CBCon 10-02-2020 Erythrocyte distribution width (RBC) [Ratio] 13.4 % Normal 11.5-15.5 [facility] ([place]) Comment on above: Performed By: #### C BC, ADIFF, ANEU, CMP, GFR, LIP #### [place] [address] Hematocrit (Bld) [Volume fraction] 52.8 % High 40.0-52.0 [facility] ([place]) Comment on above: Performed By: #### C BC, ADIFF, ANEU, CMP, GFR, LIP #### [place] [address] Hgb 18.5 G/dL High 13.0-17.5 [facility] ([place]) Comment on above: Performed By: #### C BC, ADIFF, ANEU, CMP, GFR, LIP #### [place] [address] MCH (RBC) [Entitic mass] 33.9 pg High 27.0-33.0 [facility] ([place]) Comment on above: Performed By: #### C BC, ADIFF, ANEU, CMP, GFR, LIP #### [place] [address] MCHC 35.0 G/dL Normal 32.0-36.0 [facility] ([place]) Comment on above: Performed By: #### C BC, ADIFF, ANEU, CMP, GFR, LIP #### [place] [address] MCV (RBC) [Entitic vol] 96.8 fL Normal 81.0-100.0 A [facility] ([place]) Comment on above: Performed By: #### C BC, ADIFF, ANEU, CMP, GFR, LIP #### [place] [address] Platelet 207 10 3/mcL Normal 150-450 [facility] ([place]) Comment on above: Performed By: #### C BC, ADIFF, ANEU, CMP, GFR, LIP #### [address] [address] Platelet mean volume (Bld) [Entitic vol] 9.6 fL Normal 6.4-10.5 [facility] ([place]) Comment on above: Performed By: #### C BC, ADIFF, ANEU, CMP, GFR, LIP #### [place] [id number] RBC 5.46 10 6/mcL Normal 4.50-6.00 [facility] ([place]) Comment on above: Performed By: #### C BC, ADIFF, ANEU, CMP, GFR, LIP #### [place] [id number] WBC 8.70 10 3/mcL Normal 4.50-10.80 [facility] ([place]) Comment on above: Performed By: #### C BC, ADIFF, ANEU, CMP, GFR, LIP #### [place] [address] CMPon 10-02-2020 Albumin Level 4.1 G/dL Normal 3.2-4.8 [facility] ([place]) Comment on above: Performed By: #### C BC, ADIFF, ANEU, CMP, GFR, LIP #### [place] [address] Albumin/Globulin [Mass ratio] 1.1 {ratio} Normal 0.9-1.6 [facility] ([place]) Comment on above: Performed By: #### C BC, ADIFF, ANEU, CMP, GFR, LIP #### [place] [address] ALP [Catalytic activity/Vol] 65 U/L Normal 38-126 [facility] ([place]) Comment on above: Performed By: #### C BC, ADIFF, ANEU, CMP, GFR, LIP #### [address] [address] ALT [Catalytic activity/Vol] 89 U/L High 12-55 [facility] ([place]) Comment on above: Performed By: #### C BC, ADIFF, ANEU, CMP, GFR, LIP #### [address] [address] AST [Catalytic activity/Vol] 31 U/L Normal 8-34 [facility] ([place]) Comment on above: Performed By: #### C BC, ADIFF, ANEU, CMP, GFR, LIP #### [address] [address] Bili Total 0.4 mg/dL Normal 0.2-1.2 [facility] ([place]) Comment on above: Result Comment: Use of this assay is not recommended for patients undergoing treatment with eltrombopag due to the potential for falsely elevated results. Performed By: #### C BC, ADIFF, ANEU, CMP, GFR, LIP #### [place] [id number] BUN/Creatinine Ratio 16.0 ratio Normal 10.0-22.0 [facility] ([place] Comment on above: Performed By: #### C BC, ADIFF, ANEU, CMP, GFR, LIP #### [address] [address] Calcium [Mass/Vol] 9.1 mg/dL Normal 8.4-10.1 [facility] ([place]) Comment on above: Result Comment: No te - New Reference Range in effect 19 Performed By: #### C BC, ADIFF, ANEU, CMP, GFR, LIP #### [address] [address] Chloride [Moles/Vol] 109 mmol/L Normal 98-110 [facility] ([place] Comment on above: Performed By: #### C BC, ADIFF, ANEU, CMP, GFR, LIP #### [address] [address] CO2 [Moles/Vol] 25 mmol/L Normal 22-32 [facility] ([place]) Comment on above: Performed By: #### C BC, ADIFF, ANEU, CMP, GFR, LIP #### [address] [address] Creatinine [Mass/Vol] 0.94 mg/dL Normal 0.60-1.40 [facility] ([place]) Comment on above: Performed By: #### C BC, ADIFF, ANEU, CMP, GFR, LIP #### [address] [address] Electrolyte Balance 5.0 mEq/L Normal 4.0-15.0 [facility] ([place]) Comment on above: Performed By: #### C BC, ADIFF, ANEU, CMP, GFR, LIP #### [address] [address] Globulin 3.7 G/dL Normal 1.5-3.8 [facility] ([place]) Comment on above: Performed By: #### C BC, ADIFF, ANEU, CMP, GFR, LIP #### [place] [id number] Glucose [Mass/Vol] 97 mg/dL Normal 70-110 [facility] ([place]) Comment on above: Performed By: #### C BC, ADIFF, ANEU, CMP, GFR, LIP #### [place] [id number] Potassium [Moles/Vol] 3.9 mmol/L Normal 3.5-5.0 [facility] ([place]) Comment on above: Performed By: #### C BC, ADIFF, ANEU, CMP, GFR, LIP #### [address] [address] Sodium [Moles/Vol] 139 mmol/L Normal 136-145 [facility] ([place]) Comment on above: Performed By: #### C BC, ADIFF, ANEU, CMP, GFR, LIP #### [place] [id number] Total Protein 7.8 G/dL Normal 6.0-8.5 [facility] ([place]) Comment on above: Result Comment: No te - New Reference Range in effect 19 Performed By: #### C BC, ADIFF, ANEU, CMP, GFR, LIP #### [facility] [address] [place] [address] Urea nitrogen [Mass/Vol] 15.0 mg/dL Normal 8.0-22.0 [facility] ([place]) Comment on above: Performed By: #### C BC, ADIFF, ANEU, CMP, GFR, LIP #### [facility] [address] [place] [address] [address] ABD/PELVIS W/ IV CONTRAST ONLYon 10-02-2020 [...] Date: 10/02/2020 8:42:53 PM Ordering Provider:Sharad Hope [facility] ([place]) LIPon 10-02-2020 Lipase Level 50 U/L Normal - [facility] ([place]) Comment on above: Result Comment: No te - New Reference Range in effect 19 Performed By: #### C BC, ADIFF, ANEU, CMP, GFR, LIP #### [place] [id number] [place] [address] US ABDOMEN LIMITEDon 021 US ABDOMEN LIMITED [...] Date: 10/02/2020 7:14:57 PM Ordering Provider:Leann Fairchild [facility] ([place]) Dionne 08-30-2020 EMERGENCY PHYSICIAN REPORT This is a preliminary report only, as the practitioner review and authentication has not occurred. [facility] ER PHYSICIAN ASSESSMENT RECORDS : FlexChartData Event Time: 08/30/2020 13:20 BJKA Status: Signed [facility] Andrew Mclean [[id number]] Mid-Level Chart (V2b) 40 / M / 1980 Chart created at 08/30/2020 13:12 by Denver Osman Chart closed at 08/30/2020 13:17 Entry in Emergency Department at 08/30/2020 10:39, departure at 08/30/2020 14:18 Patient Name: Andrew Mclean Record Number: [id number] Date: 08/30/2020 13:12 Entered Department at: 08/30/2020 [...] in nurses note. Medications: Reviewed RN Note. [facility] PATIENT NAME: ANDREW MCLEAN [address] [place] MEDICAL REC #: [id number] [place] [address] EMERGENCY DEPARTMENT REPORT EMERGENCY DEPARTMENT PHYSICIAN Allergies: [...] were no prior studies available for comparison. [facility] PATIENT NAME: ANDREW MCLEAN [facility] [address] [place] MEDICAL REC #: [id number] [place] [address] EMERGENCY DEPARTMENT REPORT EMERGENCY DEPARTMENT PHYSICIAN The femoral head is in good position. No fractures are seen. There are mild degenerative changes. IMPRESSION: Mild degenerative change. No acute abnormalities. ---- Electronic Signature on File ---- Signed By: Sharad Cohn MD FACR [email or web address] Dictated: 08/30/2020 12:29 PM Signed: 08/30/2020 12:30 PM Reported By: SHARAD COHN M.D. Radiology: Interpreted by Radiologist. Medical Decision Making Vitals are noted. Patient is afebrile. Blood pressure is 174/104 this could be pain related. Patient was medicated with 1 [place] and muscle relaxer. Heart rate is 75. [...] pressure. He will be referred to the [facility] musculoskeletal clinic. Clinical Impression: [facility] PATIENT NAME: ANDREW MCLEAN [address] [facility] [address] [place] MEDICAL REC #: [id number] [place] [address] EMERGENCY DEPARTMENT REPORT EMERGENCY DEPARTMENT PHYSICIAN 1. Subacute right hip pain 2. Elevated blood pressure Disposition: Discharged . Condition: Good Electronically sign (more content not included)... Normal [facility] HIP COMP 2-3 VIEWS RIGHTon 0 08-30-2020 [...] COHN M.D. Signed By: SHARAD COHN M.D. [facility] Vital Signs Date Time Vital Sign Value Performing Clinician Facility 01-11-2025 19:00-0400 Body temperature 98.1 [degF] No Primary Care Physician [facility] 01-11-2025 19:00-0400 Diastolic blood pressure 92 mm[Hg] No Primary Care Physician [facility] 01-11-2025 19:00-0400 Heart rate 76 /min No Primary Care Physician [facility] 01-11-2025 19:00-0400 Respiratory rate 18 /min No Primary Care Physician [facility] 01-11-2025 19:00-0400 SaO2% (BldA) [Mass fraction] 98 % No Primary Care Physician [facility] 01-11-2025 19:00-0400 Systolic blood pressure 138 mm[Hg] No Primary Care Physician [facility] 01-11-2025 17:14-0400 Body height 175.26 cm No Primary Care Physician [facility] 01-05-2025 08:05-0400 Body height 175.26 cm No Primary Care Physician [facility] 01-05-2025 08:05-0400 Body mass index (BMI) [Ratio] 29.8 kg/m2 No Primary Care Physician [facility] 01-05-2025 08:05-0400 Body weight 91.62 kg No Primary Care Physician [facility] 11-25-2024 16:24-0400 Body temperature 98 [degF] No Primary Care Physician [facility] 11-25-2024 16:24-0400 Diastolic blood pressure 87 mm[Hg] No Primary Care Physician [facility] 11-25-2024 16:24-0400 Heart rate 73 /min No Primary Care Physician [facility] 11-25-2024 16:24-0400 Respiratory rate 18 /min No Primary Care Physician [facility] 11-25-2024 16:24-0400 SaO2% (BldA) [Mass fraction] 98 % No Primary Care Physician [facility] 11-25-2024 16:24-0400 Systolic blood pressure 156 mm[Hg] No Primary Care Physician [facility] 11-25-2024 14:25-0400 Body height 175.26 cm No Primary Care Physician [facility] 11-25-2024 14:25-0400 Body mass index (BMI) [Ratio] 27.8 kg/m2 No Primary Care Physician [facility] 11-25-2024 14:25-0400 Body weight 85.6 kg No Primary Care Physician [facility] 10-31-2024 03:07-0400 Body temperature 97.8 [degF] No Primary Care Physician [facility] 10-31-2024 03:07-0400 Diastolic blood pressure 81 mm[Hg] No Primary Care Physician [facility] 10-31-2024 03:07-0400 Heart rate 69 /min No Primary Care Physician [facility] 10-31-2024 03:07-0400 Respiratory rate 18 /min No Primary Care Physician [facility] 10-31-2024 03:07-0400 SaO2% (BldA) [Mass fraction] 99 % No Primary Care Physician [facility] 10-31-2024 03:07-0400 Systolic blood pressure 121 mm[Hg] No Primary Care Physician [facility] 10-30-2024 22:55-0400 Body height 175.26 cm No Primary Care Physician [facility] 10-30-2024 22:55-0400 Body mass index (BMI) [Ratio] 27.1 kg/m2 No Primary Care Physician [facility] 10-30-2024 22:55-0400 Body weight 83.46 kg No Primary Care Physician [facility] 10-15-2024 15:18-0400 Body temperature 98 [degF] No Primary Care Physician [facility] 10-15-2024 15:18-0400 Diastolic blood pressure 97 mm[Hg] No Primary Care Physician [facility] 10-15-2024 15:18-0400 Heart rate 78 /min No Primary Care Physician [facility] 10-15-2024 15:18-0400 Respiratory rate 16 /min No Primary Care Physician [facility] 10-15-2024 15:18-0400 SaO2% (BldA) [Mass fraction] 99 % No Primary Care Physician [facility] 10-15-2024 15:18-0400 Systolic blood pressure 137 mm[Hg] No Primary Care Physician [facility] 10-15-2024 12:05-0400 Body height 175.26 cm No Primary Care Physician [facility] 10-15-2024 12:05-0400 Body mass index (BMI) [Ratio] 27.2 kg/m2 No Primary Care Physician [facility] 10-15-2024 12:05-0400 Body weight 83.64 kg No Primary Care Physician [facility] 08-28-2023 18:05-0400 Body height 175.3 cm Ngoc Oliveros DO Work Phone: [facility] 08-28-2023 18:04-0400 Body temperature 98.01 [degF] Ngoc Oliveros DO Work Phone: [facility] 08-28-2023 18:04-0400 Diastolic blood pressure 96 mm[Hg] Ngoc Oliveros DO Work Phone: [facility] 08-28-2023 18:04-0400 Heart rate 100 /min Ngoc Oliveros DO Work Phone: [facility] 08-28-2023 18:04-0400 Respiratory rate 18 /min Ngoc Oliveros DO Work Phone: [facility] 08-28-2023 18:04-0400 SaO2% (BldA) [Mass fraction] 99 % Ngoc Oliveros DO Work Phone: [facility] 08-28-2023 18:04-0400 Systolic blood pressure 126 mm[Hg] Ngoc Oliveros DO Work Phone: [facility] 07-26-2023 13:27-0400 Body temperature 98.4 [degF] [facility] 07-26-2023 13:27-0400 Diastolic blood pressure 85 mm[Hg] [facility] 07-26-2023 13:27-0400 Heart rate 74 /min [facility] 07-26-2023 13:27-0400 Respiratory rate 16 /min [facility] 07-26-2023 13:27-0400 SaO2% (BldA) [Mass fraction] 100 % [facility] 07-26-2023 13:27-0400 Systolic blood pressure 121 mm[Hg] [facility] 07-26-2023 11:27-0400 Body height 175.26 cm [facility] 07-26-2023 11:27-0400 Body mass index (BMI) [Ratio] 27.5 kg/m2 [facility] 07-26-2023 11:27-0400 Body weight 84.62 kg [facility] 04-16-2023 11:05-0500 SaO2% (BldA) [Mass fraction] 95 % [facility] 04-16-2023 09:36-0500 Heart rate 96 /min [facility] 04-16-2023 09:36-0500 Respiratory rate 18 /min [facility] 04-16-2023 08:27-0500 Diastolic blood pressure 98 mm[Hg] [facility] 04-16-2023 08:27-0500 Systolic blood pressure 150 mm[Hg] [facility] 04-16-2023 06:51-0500 Body height 175.26 cm [facility] 04-16-2023 06:51-0500 Body mass index (BMI) [Ratio] 27.3 kg/m2 [facility] 04-16-2023 06:51-0500 Body temperature 97.2 [degF] [facility] 04-16-2023 06:51-0500 Body weight 84.1 kg [facility] 04-10-2023 10:56-0500 Respiratory rate 18 /min [facility] 04-10-2023 08:58-0500 Body mass index (BMI) [Ratio] 27.2 kg/m2 [facility] 04-10-2023 08:58-0500 Body temperature 98.6 [degF] [facility] 04-10-2023 08:58-0500 Body weight 83.7 kg [facility] 04-10-2023 08:58-0500 Diastolic blood pressure 82 mm[Hg] [facility] 04-10-2023 08:58-0500 Heart rate 95 /min [facility] 04-10-2023 08:58-0500 SaO2% (BldA) [Mass fraction] 99 % [facility] 04-10-2023 08:58-0500 Systolic blood pressure 128 mm[Hg] [facility] 03-03-2022 19:50-0500 Diastolic blood pressure 119 mm[Hg] Dr. Ena Holloway Work Phone: [facility] Work Phone: 03-03-2022 19:50-0500 Heart rate 101 /min Dr. Ena Holloway Work Phone: [facility] Work Phone: 03-03-2022 19:50-0500 Systolic blood pressure 154 mm[Hg] Dr. Ena Holloway Work Phone: [facility] Work Phone: 03-03-2022 19:26-0500 Body height 175.[address] Ena Holloway Work Phone: [facility] Work Phone: 03-03-2022 19:26-0500 Body mass index (BMI) [Ratio] 28.8 kg/m2 Dr. Ena Holloway Work Phone: [facility] Work Phone: 03-03-2022 19:26-0500 Body temperature 97.9 [degF] Dr. Ena Holloway Work Phone: [facility] Work Phone: 03-03-2022 19:26-0500 Body weight 88.[address] Ena Holloway Work Phone: [facility] Work Phone: 03-03-2022 19:26-0500 Respiratory rate 18 /min Dr. Ena Holloway Work Phone: [facility] Work Phone: 03-03-2022 19:26-0500 SaO2% (BldA) [Mass fraction] 96 % Dr. Ena Holloway Work Phone: [facility] Work Phone: 02-28-2022 08:16-0500 Body height 177.[address] Ena Holloway Work Phone: [facility] Work Phone: 02-28-2022 08:16-0500 Body mass index (BMI) [Ratio] 30.1 kg/m2 Dr. Ena Holloway Work Phone: [facility] Work Phone: 02-28-2022 08:16-0500 Body temperature 97.5 [degF] Dr. Ena Holloway Work Phone: [facility] Work Phone: 02-28-2022 08:16-0500 Body weight 95.[address] Ena Holloway Work Phone: [facility] Work Phone: 02-28-2022 08:16-0500 Diastolic blood pressure 106 mm[Hg] Dr. Ena Holloway Work Phone: [facility] Work Phone: 02-28-2022 08:16-0500 Heart rate 109 /min Dr. Ena Holloway Work Phone: [facility] Work Phone: 02-28-2022 08:16-0500 Respiratory rate 18 /min Dr. Ena Holloway Work Phone: [facility] Work Phone: 02-28-2022 08:16-0500 SaO2% (BldA) [Mass fraction] 99 % Dr. Ena Holloway Work Phone: [facility] Work Phone: 02-28-2022 08:16-0500 Systolic blood pressure 147 mm[Hg] Dr. Ena Holloway Work Phone: [facility] Work Phone: 01-07-2022 09:10-0400 Body temperature 98.8 [degF] Dr. Ena Holloway Work Phone: [facility] Work Phone: 01-07-2022 09:10-0400 Diastolic blood pressure 97 mm[Hg] Dr. Ena Holloway Work Phone: [facility] Work Phone: 01-07-2022 09:10-0400 Heart rate 63 /min Dr. Ena Holloway Work Phone: [facility] Work Phone: 01-07-2022 09:10-0400 Respiratory rate 14 /min Dr. Ena Holloway Work Phone: [facility] Work Phone: 01-07-2022 09:10-0400 SaO2% (BldA) [Mass fraction] 98 % Dr. Ena Holloway Work Phone: [facility] Work Phone: 01-07-2022 09:10-0400 Systolic blood pressure 133 mm[Hg] Dr. Ena Holloway Work Phone: [facility] Work Phone: 01-06-2022 10:31-0400 Body height 177.[address] Ena Holloway Work Phone: [facility] Work Phone: 01-06-2022 10:31-0400 Body weight 92.[address] Ena Holloway Work Phone: [facility] Work Phone: 01-06-2022 09:20-0400 Body mass index (BMI) [Ratio] 29.2 kg/m2 Dr. Ena Holloway Work Phone: [facility] Work Phone: 01-06-2022 03:39-0400 Body temperature 98 [degF] Dr. Ena Cola Work Phone: [facility] Work Phone: 01-06-2022 03:39-0400 Diastolic blood pressure 99 mm[Hg] Dr. Ena Holloway Work Phone: [facility] Work Phone: 01-06-2022 03:39-0400 Heart rate 67 /min Dr. Ena Holloway Work Phone: [facility] Work Phone: 01-06-2022 03:39-0400 Respiratory rate 16 /min Dr. Ena Holloway Work Phone: [facility] Work Phone: 01-06-2022 03:39-0400 SaO2% (BldA) [Mass fraction] 98 % Dr. Ena Holloway Work Phone: [facility] Work Phone: 01-06-2022 03:39-0400 Systolic blood pressure 132 mm[Hg] Dr. Ena Holloway Work Phone: [facility] Work Phone: 01-06-2022 01:15-0400 Body height 177.[address] Ena Holloway Work Phone: [facility] Work Phone: 01-06-2022 01:15-0400 Body mass index (BMI) [Ratio] 41.5 kg/m2 Dr. Ena Holloway Work Phone: [facility] Work Phone: 01-06-2022 01:15-0400 Body weight 131.[address] Ena Holloway Work Phone: [facility] Work Phone: 01-03-2022 16:48-0400 SaO2% (BldA) [Mass fraction] 94 % Dr. Ena Holloway Work Phone: [facility] Work Phone: 01-03-2022 12:53-0400 Body temperature 98.1 [degF] Dr. Ena Holloway Work Phone: [facility] Work Phone: 01-03-2022 12:53-0400 Diastolic blood pressure 97 mm[Hg] Dr. Ena Holloway Work Phone: [facility] Work Phone: 01-03-2022 12:53-0400 Heart rate 55 /min Dr. Ena Holloway Work Phone: [facility] Work Phone: 01-03-2022 12:53-0400 Respiratory rate 18 /min Dr. Ena Holloway Work Phone: [facility] Work Phone: 01-03-2022 12:53-0400 Systolic blood pressure 128 mm[Hg] Dr. Ena Holloway Work Phone: [facility] Work Phone: 01-03-2022 09:29-0400 Body height 177.[address] Ena Holloway Work Phone: [facility] Work Phone: 01-03-2022 09:29-0400 Body mass index (BMI) [Ratio] 29.4 kg/m2 Dr. Ena Holloway Work Phone: [facility] Work Phone: 01-03-2022 09:29-0400 Body weight 92.[address] Ena Holloway Work Phone: [facility] Work Phone: 12-31-2021 21:21-0400 Body temperature 98 [degF] [facility] Work Phone: 12-31-2021 21:21-0400 Diastolic blood pressure 104 mm[Hg] [facility] Work Phone: 12-31-2021 21:21-0400 Heart rate 84 /min [facility] Work Phone: 12-31-2021 21:21-0400 Respiratory rate 16 /min [facility] Work Phone: 12-31-2021 21:21-0400 SaO2% (BldA) [Mass fraction] 95 % [facility] Work Phone: 12-31-2021 21:21-0400 Systolic blood pressure 141 mm[Hg] [facility] Work Phone: 12-31-2021 15:38-0400 Body height 177.8 cm [facility] Work Phone: 12-31-2021 15:38-0400 Body mass index (BMI) [Ratio] 30.3 kg/m2 [facility] Work Phone: 12-31-2021 15:38-0400 Body weight 95.8 kg [facility] Work Phone: 12-02-2021 10:41-0400 Diastolic blood pressure 105 mm[Hg] [facility] Work Phone: 12-02-2021 10:41-0400 Heart rate 98 /min [facility] Work Phone: 12-02-2021 10:41-0400 Respiratory rate 17 /min [facility] Work Phone: 12-02-2021 10:41-0400 SaO2% (BldA) [Mass fraction] 97 % [facility] Work Phone: 12-02-2021 10:41-0400 Systolic blood pressure 134 mm[Hg] [facility] Work Phone: 12-02-2021 09:51-0400 Body height 175.26 cm [facility] Work Phone: 12-02-2021 09:51-0400 Body mass index (BMI) [Ratio] 30.3 kg/m2 [facility] Work Phone: 12-02-2021 09:51-0400 Body temperature 97.8 [degF] [facility] Work Phone: 12-02-2021 09:51-0400 Body weight 93.2 kg [facility] Work Phone: 11-15-2021 17:56-0400 Body height 175.26 cm [facility] Work Phone: 11-15-2021 17:56-0400 Body mass index (BMI) [Ratio] 31.6 kg/m2 [facility] Work Phone: 11-15-2021 17:56-0400 Body temperature 96.3 [degF] [facility] Work Phone: 11-15-2021 17:56-0400 Body weight 97.1 kg [facility] Work Phone: 11-15-2021 17:56-0400 Diastolic blood pressure 131 mm[Hg] [facility] Work Phone: 11-15-2021 17:56-0400 Heart rate 95 /min [facility] Work Phone: 11-15-2021 17:56-0400 Respiratory rate 16 /min [facility] Work Phone: 11-15-2021 17:56-0400 SaO2% (BldA) [Mass fraction] 97 % [facility] Work Phone: 11-15-2021 17:56-0400 Systolic blood pressure 169 mm[Hg] [facility] Work Phone: 09-20-2021 07:50-0400 Diastolic blood pressure 72 mm[Hg] [facility] Work Phone: 09-20-2021 07:50-0400 Heart rate 71 /min [facility] Work Phone: 09-20-2021 07:50-0400 Respiratory rate 16 /min [facility] Work Phone: 09-20-2021 07:50-0400 SaO2% (BldA) [Mass fraction] 98 % [facility] Work Phone: 09-20-2021 07:50-0400 Systolic blood pressure 134 mm[Hg] [facility] Work Phone: 09-20-2021 06:16-0400 Body height 175.26 cm [facility] Work Phone: 09-20-2021 06:16-0400 Body mass index (BMI) [Ratio] 32.1 kg/m2 [facility] Work Phone: 09-20-2021 06:16-0400 Body temperature 97.9 [degF] [facility] Work Phone: 09-20-2021 06:16-0400 Body weight 98.7 kg [facility] Work Phone: Encounters Encounter Date Encounter Type Care Provider Facility Start: 01-18-2025 ambulatory [facility] Facility :[facility] Start: 01-17-2025 Encounter for other preprocedural examination Adan Villagran [facility] Start: 01-16-2025 End: 01-16-2025 ambulatory [facility] [place] [place]: 01-11-2025 End: 01-11-2025 Emergency department patient visit No Primary Care Physician -Emergency Department Work Phone: Start: 01-05-2025 End: 01-05-2025 Patient encounter procedure Maricel [facility] Work Phone: Start: 01-05-2025 End: 01-05-2025 ambulatory No Primary Care Physician -[facility] Start: 12-23-2024 End: 12-23-2024 ambulatory No Primary Care Physician -[facility] Start: 12-23-2024 End: 12-23-2024 Patient encounter procedure Makeda Hawkins EXTRA HAND-C -[facility] - [facility] Work Phone: Start: 12-23-2024 End: 12-23-2024 ambulatory [facility] Facility:[facility] Start: 12-02-2024 ambulatory [facility] Facility :[facility] Start: 11-25-2024 End: 11-25-2024 Emergency department patient visit No Primary Care Physician -Emergency Department Work Phone: Start: 11-07-2024 End: 11-07-2024 ambulatory No Primary Care Physician [facility] Start: 11-07-2024 End: 11-07-2024 [facility] Work Phone: Start: 11-07-2024 End: 11-07-2024 ambulatory [facility] Facility:[facility] Start: 10-30-2024 End: 10-31-2024 Emergency department patient visit No Primary Care Physician -Emergency Department Work Phone: Start: 10-17-2024 End: 10-17-2024 Emergency department patient visit PRO QUINONES MD [facility] Start: 10-15-2024 End: 10-15-2024 Emergency department patient visit No Primary Care Physician -Emergency Department Work Phone: Start: 05-02-2024 End: 05-02-2024 Emergency department patient visit Rhett Tyler Facility:[facility] Start: 08-28-2023 End: 08-28-2023 Emergency department patient visit Ngoc Oliveros DO Work Phone: [facility] Start: 07-26-2023 End: 07-26-2023 Emergency department patient visit [facility] Work Phone: Start: 04-16-2023 End: 04-16-2023 Emergency department patient visit [facility] Work Phone: Start: 04-10-2023 End: 04-10-2023 Emergency department patient visit [facility] Work Phone: Start: 03-03-2022 End: 03-03-2022 Emergency department patient visit Dr. Ena Holloway Work Phone: [facility] Start: 02-28-2022 End: 02-28-2022 Emergency department patient visit Dr. Ena Holloway Work Phone: [facility]Emergency Department Start: 01-07-2022 Non-patient / Non-visit Dr. Nat Holloway Work Phone: [facility] Start: 01-06-2022 Non-patient / Non-visit Dr. Nat Holloway Work Phone: [facility] Start: 01-06-2022 End: 01-07-2022 Evaluation and management of inpatient Dr. Ena Holloway Work Phone: [facility]-Medical Surgical 3 Start: 01-03-2022 Non-patient / Non-visit Dr. Nat Holloway Work Phone: [facility] Start: 01-03-2022 Non-patient / Non-visit Dr. Nat Holloway Work Phone: [facility] Start: 01-02-2022 Non-patient / Non-visit Dr. Nat Holloway Work Phone: [facility] Start: 01-01-2022 Non-patient / Non-visit Dr. Nat Holloway Work Phone: [facility] Start: 01-01-2022 Non-patient / Non-visit Dr. Nat Holloway Work Phone: [facility] Start: 01-01-2022 End: 01-03-2022 Non-patient / Non-visit Dr. Ena Holloway Work Phone: [facility] Start: 12-31-2021 End: 09-30-2022 Evaluation and management of inpatient [facility] 3 Start: 12-02-2021 End: 12-02-2021 Emergency department patient visit [facility] Start: 11-15-2021 End: 11-15-2021 Emergency department patient visit [facility] Start: 09-20-2021 End: 09-20-2021 Emergency department patient visit [facility] Procedures Date Procedure Procedure Detail [...] Date Care Activity Detail Author Start: 01-11-2025 [facility] Start: 01-05-2025 X-ray of cervical spine Cerv Spine 2 or 3 Views [facility] Start: 01-05-2025 XR Cervical spine 2 or 3 Views [facility] Start: 11-25-2024 [facility] Start: 10-31-2024 [facility] Start: 10-15-2024 [facility] Start: 10-15-2024 [facility] Start: 12-06-2023 Influenza vaccination INFLUENZA VACCINE (Season Ended) [facility] Start: 07-26-2023 [facility] Start: 04-16-2023 [facility] Start: 04-10-2023 [facility] Start: 12-05-2022 COVID-19 VACCINE ( season) COVID-19 VACCINE ( season) [facility] Start: 2022 Blood chemistry [facility] Work Phone: Start: 01-08-2022 Blood chemistry [facility] Work Phone: Start: 01-07-2022 Patient discharge [facility] Work Phone: Start: 01-06-2022 End: 01-07-2022 [facility] Work Phone: Start: 01-06-2022 Egd transoral biopsy single/multiple EGD BIOPSY SINGLE/MULTIPLE [facility] Work Phone: Start: 01-06-2022 Egd transoral control bleeding any method EGD CONTROL BLEEDING ANY [facility] Work Phone: Start: 01-06-2022 Catheterization of vein [facility] Work Phone: Start: 01-06-2022 Application of intermittent pneumatic compression device [facility] Work Phone: Start: 01-06-2022 Following clinical pathway protocol [facility] Work Phone: Start: 01-06-2022 Assessment of risk of venous thromboembolism [facility] Work Phone: Start: 01-06-2022 Insertion of catheter into peripheral vein [facility] Work Phone: Start: 01-06-2022 Oxygen therapy [facility] Work Phone: Start: 01-06-2022 Providing care according to standard [facility] Work Phone: Start: 01-06-2022 Referral to gastroenterology service [facility] Work Phone: Start: 01-06-2022 End: 01-06-2022 Verification routine [facility] Work Phone: Start: 01-06-2022 Admission procedure [facility] Work Phone: Start: 01-03-2022 Patient discharge [facility] Work Phone: Start: 01-01-2022 End: 01-02-2022 [facility] Work Phone: Start: 01-01-2022 Following clinical pathway protocol [facility] Work Phone: Start: 01-01-2022 End: 01-01-2022 Catheterization of vein [facility] Work Phone: Start: 01-01-2022 End: 01-01-2022 Notification of physician [facility] Work Phone: Start: 01-01-2022 Oxygen therapy [facility] Work Phone: Start: 12-31-2021 Ambulation without limitation [facility] Work Phone: Start: 12-31-2021 Assessment of risk of venous thromboembolism [facility] Work Phone: Start: 12-31-2021 Insertion of catheter into peripheral vein [facility] Work Phone: Start: 12-31-2021 Providing care according to standard [facility] Work Phone: Start: 12-31-2021 Referral to gastroenterology service [facility] Work Phone: Start: 12-31-2021 [facility] Work Phone: Start: 12-31-2021 Following clinical pathway protocol [facility] Work Phone: Start: 12-31-2021 Verification routine [facility] Work Phone: Start: 12-31-2021 Admission procedure [facility] Work Phone: Start: 12-02-2021 [facility] Work Phone: Start: 2019 Lipid panel LIPID SCREENING [facility] Start: 1998 Hepatitis B vaccination HEP B VACCINE (1 of 3 - 19+ 3-dose series) [facility] Start: 1998 Third diphtheria, tetanus and acellular pertussis (DTaP) vaccination TDAP (ADULT) [facility] Start: 1994 HIV screening HIV SCREENING DISCUSSION [facility] Start: 1979 Hepatitis C screening HEPATITIS C VIRUS SCREENING [facility] Start: 1979 Tetanus vaccination TETANUS [facility] Anion gap measurement [facility] Work Phone: BUN/Creatinine ratio [facility] Work Phone: Calcium [Mass/volume ] in Serum or Plasma [facility] Work Phone: Carbon dioxide, tota l [Moles/volume] in Serum or Plasma [facility] Work Phone: Chloride [Moles/volu me] in Serum or Plasma [facility] Work Phone: Creatinine [Moles/vo lume] in Serum or Plasma [facility] Work Phone: Glucose [Mass/volume ] in Serum or Plasma [facility] Work Phone: Hematocrit [Volume F raction] of Blood [facility] Work Phone: Hemoglobin [Mass/vol ume] in Blood [facility] Work Phone: Leukocytes [#/volume ] in Blood [facility] Work Phone: Mean corpuscular hem oglobin concentration determination [facility] Work Phone: Mean corpuscular hem oglobin determination [facility] Work Phone: Measurement of renal function [facility] Work Phone: Neutrophil count [facility] Work Phone: Neutrophil percent differential count [facility] Work Phone: Patient Education [facility] Work Phone: Patient referral [facility] Work Phone: Platelets [#/volume] in Blood [facility] Work Phone: Potassium [Moles/vol ume] in Serum or Plasma [facility] Work Phone: Red blood cell count [facility] Work Phone: Red cell distributio n width determination [facility] Work Phone: Sodium [Moles/volume ] in Serum or Plasma [facility] Work Phone: Urea nitrogen [Mass/ volume] in Serum or Plasma [facility] Work Phone: Immunizations Immunization Date Immunization Notes Care Provider Fa [facility] 02-28-2022 tetanus toxoid, redu jd diphtheria toxoid, and acellular pertussis vaccine, adsorbed Dr. Ena Holloway Work Phone: [facility] Payers Date Payer Category Payer Private Health Insurance [id number] [id number] 2024 Self-pay [id number] 2024 Unknown [id number] 2012 Medicaid [id number] 2012 Unknown [id number] 1979 Unknown [id number] 2.16. [id number] Private Health Insurance [id number] Unknown [id number] Unknown [id number] 2.16.8 [id number] Unknown [id number] 2.16.8 [id number] Unknown [id number] 2.16.8 [id number] Unknown [id number] 2.16.8 [id number] Unknown [id number] 2.16.8 [id number] Unknown [id number] 2.16.8 [id number] Unknown [id number] 2.16.8 [id number] Unknown [id number] 2.16.8 [id number] Unknown [id number] 2.16.8 [id number] Unknown [id number] 2.16.8 [id number] Unknown [id number] 2.16.8 [id number] Unknown [id number] 2.16.8 [id number] Social History Date Type Detail Facility Start: 09-20-2021 End: 07-26-2023 Tobacco smoking status MEIS Unknown if ever smoked [facility] Start: 06-30-2018 None [facility] Start: 12-29-2018 With Family [facility] Start: 04-22-2020 Cigarettes [facility] Start: 1980 Sex Assigned At Male W [facility] Start: 08-28-2023 Tobacco smoking stat us NHIS Ex-smoker [facility] History of tobacco use Current smoker [facility] History of tobacco use Cigarette Smoker A [facility] Start: 08-28-2023 Tobacco use and exposure Smokeless tobacco non-user [facility] Start: 08-28-2023 Alcoholic beverage intake Ex-drinker (finding) [facility] Start: 08-28-2023 History of Social function [facility] Start: 08-28-2023 Tobacco use panel [facility] Start: 1980 Sex assigned at Not on file A [facility] Start: 10-15-2024 Tobacco smoking stat us MEIS Current Light tobacco smoker [facility] Tobacco smoking status [facility] Start: 10-02-2020 Sex Male (finding) [facility] Start: 10-30-2024 End: 01-11-2025 Tobacco smoking status NHIS Smokes tobacco daily (finding) [facility] Goals Date Patient Goal Desired Activity /State Functional Status Date Assessment Result Facility 01-07-2022 Functional status Ambulates [facility] Work Phone: 01-03-2022 Functional status Ambulates;Up ad blake [facility] Work Phone: Mental Status Date Assessment Result Facility 01-11-2025 Cognitive function Level Of Consciousness Awake [facility] Work Phone: 11-25-2024 Cognitive function Awake;Alert;A ppropriate;Follow s Commands [facility] Work Phone: 10-15-2024 Cognitive function Awake;Alert;A ppropriate;Follow s Commands [facility] Work Phone: 01-07-2022 Cognitive function Level Of Cons ciousness Awake;Alert;Appropriate;Follow s Commands [facility] Work Phone: 01-06-2022 Cognitive function Comprehension Ability Demonstrates ability to follow instructions/comprehend [facility] Work Phone: 01-06-2022 Cognitive function Arousable To Light Dianna n [facility] Work Phone: 01-06-2022 Cognitive function Appropriate;Cooperativ e [facility] Work Phone: 01-03-2022 Cognitive function Awake;Alert;Appropriat [facility] Work Phone: 01-03-2022 Cognitive function Appropriate;Janis [facility] Work Phone: 12-02-2021 Cognitive function Voice/Name [facility] Work Phone: Clinical Notes 10-15-2021 to 01-11-2025 Note Date & Type Note Facility 01-11-2025 Discharge summary [facility] 01-11-2025 Discharge summary Note Date/Time January 11, 2025 6:46pm [facility] Medical Records Department [address] [place] [address] Emergency Department Summary 01/11/25 MR#: [id number] Acct: [id number] Name: ANDREW MCLEAN . Rep #:[id number] [...] needs to come to the emergency department. [facility] Medical History Migraines Asthma Internal [...] the patient medically admitted for placement and senior living facility/rehab if he is having that frequent [...] outpatient record Management Discussion w/another healthcare provider: Vascular Technologist Sonographer (Orthopedic spine surgery, Dr. Villagran) Discharge Plan [...] 3-5 Days if not improving Makeda Hawkins, EXTRA HAND-C [Primary Care Provider, Family Practice] Activity Restrictions/Additional Instructions: Take the Medrol Dosepak as directed. Wear soft collar for support. Return withfever, new or worsening symptoms. Discussed with your primary care provider or orthopedics about outpatient rehabilitation. Print Language: [place] Disposition Disposition: Home, Self Care What to do if you have Problems For any increased pain, shortness of breath, bleeding, nausea or vomiting, chestpain, or any unexpected problems, contact your Primary Care Provider. Call [facility] ([phone]) or report to the closest Emergency Room. Call 911 if necessary. 01/11/25 184 <Electronically signed by Junior Johnson MD> Cosigner Signature (if applicable): CC: LUCIANO Hawkins ~ Signed [facility] Work Phone: 1(131) 445-719310-02-2025 Evaluation note* Diagnosis Onset Date Resolution Status Admit Date Cervical myelopathy with cervical radiculopathy acute January 052024 8:01am [facility] Work Phone: 1(332) 945-417408-22-2025 Radiology Diagnostic study note [facility] Imaging Services [address] [place], [place] [id number] Cerv Spine 2 or 3 Views MR#: [id number] Acct: [id number] Name: ANDREW MCLEAN Jr. Rep #: [id number] : 1980 M 44 From: Srinivas Guerra MD PCP: LUCIANO Peñaloza Status: REG E R Study:Cerv Spine 2 or 3 Views Date of Exam: 11/25/24 Exam# [id number] Ordering Dr: Herberth Donohue DO PROCEDURE: CERV [...] spasm. 3. Mild degenerative changes. Reading Location: [facility] CC: EXTRA HAND-C Makeda Hawkins; Dr. Herberth Donohue, DO ~ Event Executive: Signed [facility]07-28-2025 Discharge summary [facility] Medical Records Department [address] [place] [address] Emergency Department Summary 10/30/24 MR#: [id number] Acct: [id number] Name: ANDREW MCLEAN Jr. Rep #:[id number] [...] out of the area. No suspiciousfood intake. 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 Reading Location: [place] [address] Discharge Plan Triage Chief Complaint: Nausea/Vomiting/Diarrhea ED [...] Care Provider: Makeda Hawkins Referrals: Makeda Hawkins, EXTRA HAND-C [Primary Care Provider] - 3-5 Days if not improving Print Language: [place] Disposition Disposition: Home, Self Care What to do if you have Problems For any increased pain, shortness of breath, bleeding, nausea or vomiting, chestpain, or any unexpected problems, contact your Primary Care Provider. Call [facility] ([phone]) or report tothe closest Emergency Room. Call 911 if necessary. 10/31/24 0302 Cosigner Signature (if applicable): CC: LUCIANO Hawkins ~ Signed [facility]07-28-2025 Radiology Diagnostic study note [facility] Imaging Services [address] [place] [address] Abdomen/Pelvis W IV Cont ONLY MR#: [id number] Acct: [id number] Name: ANDREW MCLEAN Jr. Rep #: [id number] : 1980 M 44 From: Fiorella Lucero MD PCP: LUCIANO Peñaloza Status: REG E R Study:Abdomen/Pelvis W IV Cont ONLY Date of E xam: 10/30/24 Exam# [id number] Ordering Dr: Bismark Gonzalez MD PROCEDURE: ABDOMEN/PELVIS [...] LUCIANO Hawkins; Dr. Josef Gonzalez MD ~ Event Executive: Signed [facility]07-27-2025 Discharge summary Author Josef Gonzalez [facility] Note Date/Time October 31, 2024 3:02 am [facility] Medical Records Department [address] [place] [address] Emergency Department Summary 10/30/24 MR#: [id number] Acct: [id number] Name: ANDREW MCLEAN Jr. Rep #:[id number] [...] out of the area. No suspiciousfood intake. 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 Reading Location: [place] [address] Discharge Plan Triage Chief Complaint: Nausea/Vomiting/Diarrhea ED [...] 3-5 Days if not improving Print Language: [place] Disposition Disposition: Home, Self Care What to do if you have Problems For any increased pain, shortness of breath, bleeding, nausea or vomiting, chestpain, or any unexpected problems, contact your Primary Care Provider. Call [facility] ([phone]) or report to the closest Emergency Room. Call 911 if necessary. 10/31/24 0302 <Electronically signed by Josef Gonzalez MD> Cosigner Signature (if applicable): CC: LUCIANO Hawkins ~ Signed [facility] Work Phone: [phone] [id number] Hospital Discharge instructions Patient Education 10/17/2024 14:43:28 [...] Swelling, pain or redness in one leg 4736-8397 [employer]. [address] [place] [address]. All rights reserved. This information is not [...] about: All medicines you take, including prescription, znnj-gul-asemkvb, herbs, and supplements Any other symptoms you [...] Chest, arm, neck, back, or jaw pain [address] [place] [address]. All rights reserved. This information is not [...] face You have trouble talking or seeing 8832-4998 [employer]. [address] [place] [address], [place] [address]. All rights reserved. This information is not [...] ED if symptoms worsen. [facility] 07-14-2025 Note Discharge Instructions Thank you for allowing [facility] to assist you with your healthcare needs. [...] may report side effects to FDA at 4-402-JSX-6035. What other drugs will affect meclizine? Using [...] drugs may affect meclizine, including prescription and zttg-kth-btktwpt medicines, vitamins, and herbal products. Tell your [...] to ensure that the information provided by [employer]. ('[employer]') is accurate, up-to-date, and complete, but no guarantee is made to that effect. Drug information contained herein may be time sensitive. [employer] Medical information has been compiled for use by healthcare practitioners and consumers in the [place] and therefore [employer] does not warrant that uses outside of the [place] are appropriate, unless specifically indicated otherwise. [employer] drug information does not endorse drugs, diagnose patients or recommend therapy. [employer] drug information isan informational resource designed to [...] effective or appropriate for any given patient. [facility] does not assume any responsibility for any aspect of healthcare administered with the aid of information [facility] provides. The information contained herein is not intended to cover all possible uses, directions, precautions, warnings, drug interactions, allergic reactions, or adverse effects. If you have questions about the drugs you are taking, check with your doctor, nurse or pharmacist. Copyright 5087-1618 [facility] [employer]. Version: 8.02. Revision Date: 08/05/2024. Education Materials [...] Swelling, pain or redness in one leg 3807-8987 [employer]. [address] [place] [address], [place] [address]. All rights reserved. This information is not intended as a substitute for professional medical care. Always follow yourhealthcare professional's instructions. Dizziness (Uncertain Cause) Dizziness is a common symptom. It may be described as lightheadedness, spinning, or feeling like you are going to faint. Dizziness can have many causes. Be sure to tell the healthcare provider about: All medicines you take, including prescription, llfr-afd-fvvujbp, herbs, and supplements Any other symptoms you [...] Chest, arm, neck, back, or jaw pain 4485-1411 [employer]. [address] [place] [address], [place] [address]. All rights reserved. This information is not [...] face You have trouble talking or seeing 2082-1714 [employer]. [address] [place] [address], [place] [address]. All rights reserved. This information is not intended as a substitute for professional medical care. Always follow yourhealthcare professional's instructions. Additional Information VACCINATE! IT SAVES LIVES! Members of the community who have not yet received the COVID-19 vaccine and would like to receive it can visit one of [facility] vaccine clinics. There are many vaccine clinic locations within the [facility]. For locations and available times, please visit [email or web address].[email or web address]/. It is important to note that some COVID mobile vaccine clinics are held outdoors and may be canceled in rainy or stormy conditions. To learn more about pediatric vaccinations (ages 5-11), we invite you to visit the [facility] webpage. https://www.[email or web address].org/pages/7940-Xlulk-Ixobktyacho-Kqbsmfcptu-Bgxud-Tba stions.htmlTo learn more about the COVID-19 vaccine, we invite you to visit the CDC website for a list of frequently asked questions. https://www.cdc.gov/coronavirus/2019-ncov/vaccines/faq.html [facility] Patient Portal Access Instructions: Stay connected with your healthcare team and access your personal medical information anytime with the [facility] Patient Portal. If you would like a full copy of your medical records please contact the [facility] Medical Records Department Thursday through Thursday between 8a.m. and 4:30p.m. Please follow the directions below to access the portal: 1.Access the email account you provided upon registration to the [facility].2.Look for an invitation email from [facility].3.Open the email and access the invitation link: Accept Invitation to [facility]4.Fill in the required dumont to create your [...] you will allow to register on the [facility] Patient Portal for access to your information. You can also access the [facility] Patient Portal on the [employer]. Simply click on "Health Records" under "HealthDaRealitycheck" and then click on the Anne logo. [...] Call your local pharmacy or go to [email or web address] to find one close to you.3.Make use of household items: Use cat litter or old coffee grounds to dispose medications if other options arenot available. Mix your drugs with these household products, seal them in an airtight container andthrow it into the garbage. Call [facility]: [phone] to be sure your drugs can be [...] that I should contact my d octor. 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 Signature: Date/Time: Relationship to Patient: Witness Name/Signature: Date/Time: [facility]07-14-2025 Note* Exam Date Time Procedure Performing Provider Status 10/17/24 1:[address] Angiography Neck w/ Contrast HUDSON SHAY MD; Auth (Verified) [id number] ORIGINAL EXAMINATION: CTA neck: TECHNIQUE: Contiguous spiral [...] Sign Date: 10/17/2024 1:48:02 PM Ordering Provider: [facility]07-14-2025 Note* Exam Date Time Procedure Performing Provider Status 10/17/24 1:[address] Angiography Head w/ Contrast HUDSON SHAY MD; Auth (Verified) [id number] ORIGINAL EXAMINATION: CT Angiogram of the head [...] Date: 10/17/2024 1:51:26 PM Ordering Provider: [facility]07-14-2025 Note* Exam Date Time Procedure Performing Provider Status 10/17/24 1:[address] Angiography Chest w/ Contrast ARNOLD DOWELL MD; Auth (Verified) [id number] ORIGINAL EXAMINATION: CTA OF THE without then [...] [facility]07-12-2025 Radiology Diagnostic study note [facility] Imaging Services [address] [place], [place] [address] CTA Chst, Abd, Pel W and/or WO MR#: [id number] Acct: [id number] Name: ANDREW MCLEAN Jr. Rep #: [id number] : 1980 M 44 From: Fiorella Brannon MD PCP: Care Physician,No Primary Status: REG ER Study:CTA Chst, Abd, Pel W and/or WO Date of Exam: 10/15/24 Exam# [id number] Ordering Dr: Hattie Wells DO PROCEDURE: CTA [...] THE CHEST, ABDOMEN OR PELVIS. Reading Location: [id number] CC: Dr. Kenny Wells DO; No Primary Care Physician ~ Event Executive: Signed [facility]05-24-2024 Hospital Discharge instructions* Discharge Instructions* Ngoc Oliveros DO - 08/28/2023 6:11 PM EDT Increase fluids. Drink plenty of water. Stay hydrated. Warm saltwater gargles as needed. Tylenol, ibuprofen for fever pain and body aches. Available ridt-tme-xtljdha use as directed. Zithromax once a day [...] Everywhere. * URI (Upper Respiratory Infection): Viral (Equatorial Guinean) * Acute Bronchitis or Chest Cold Care Instructions ([facility]) ([place]an) documented in this [facility]05-24-2024 Physician Emergency department Note* Ngoc Oliveros DO - 08/28/2023 6:04 PM EDT Emergency Department Report [facility] EMERGENCY MEDICINE Service Date:.08/28/23 PCP: Ngoc Holloway [...] sprays per nostril BID for 7 days. AOHIVMFWUMTXEFN-UFAIRXALFOPYRHI-MUMNMTWPFAUSJMEP 30-2-10 MG/5ML SYRUP Take 5 mL by [...] tablet 500 mg azithromycin 500 MG tablet gvugrpawuhahlhg-barzloxulfkpown-kmjfyvcjutadlhwp 30-2-10 MG/5ML Syrup fluticasone 50 MCG/ACT Suspension [...] and needs awork note. 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 He can go back to [...] sprays per nostril BID for 7 days. AAZYACUZHBYGZON-BWXFBENVPCBSNSO-ZOUXGEHIEMJALSHM 30-2-10 MG/5ML SYRUP Take 5 mL by mouth every 6 hours as needed for Cold Symptoms, Cough, Congestion or Rhinitis. Discontinued Medications No medications on file An After Visit Summary was printed and given to the patient with above information. . Ngoc Oliveros DO 08/28/231825 Ngoc Oliveros DO 08/28/231827 [facility]05-24-2024 Emergency department Note* Ngoc Oliveros DO - 08/28/2023 6:04 PM EDT Emergency Department Report [facility] EMERGENCY MEDICINE Service Date:.08/28/23 PCP: Ngoc Holloway [...] sprays per nostril BID for 7 days. XIAUYJOABZSSOHL-IKVQJSEYHMRIWEX-KAFGZIZWVCIUCZCJ 30-2-10 MG/5ML SYRUP Take 5 mL by [...] tablet 500 mg azithromycin 500 MG tablet gnftayocfrsegun-fmazqsprjvcyxvd-ptwdrnmtgqwxpdri 30-2-10 MG/5ML Syrup fluticasone 50 MCG/ACT Suspension [...] and needs awork note. 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 He can go back [...] sprays per nostril BID for 7 days. ECYKPEAQFIPVIHB-ALGCIAINSSKRQKY-VYEXBSJWHBWRWENC 30-2-10 MG/5ML SYRUP Take 5 mL by mouth every 6 hours as needed for Cold Symptoms, Cough, Congestion or Rhinitis. Discontinued Medications No medications on file An After Visit Summary was printed and given to the patient with above information. . Ngoc Oliveros DO 08/28/231825 Ngoc Oliveros DO 08/28/231827 documented in this [facility]04-21-2024 Hospital Discharge instructions Additional Instructions Use ice to the left shoulder 4-5 times a day for approximately 20 minutes at a time. Do range of motion exercises after icing.[facility] Work Phone: 1(433) 575-553607-12-2022 Hospital Discharge instructionsAdditional Instructions The testing of [...] needs reevaluated. Return to ER if symptoms worsen.[facility] Work Phone: Evaluation + Plan note No data available for this section [facility] Evaluation noteNo assessment information available [facility] Work Phone: Evaluation note* Diagnosis Onset Date Resolution Status Dehydration acute GI bleed acute [facility] Work Phone: Evaluation note* Diagnosis Onset Date Resolution Status Dehydration acute GI bleed acute Pancreatitis acute [facility] Work Phone: Evaluation note* Diagnosis Onset Date Resolution Status Dehydration acute GI bleed acute Pancreatitis acute GI bleed acute [facility] Work Phone: Evaluation note* Diagnosis Onset Date Resolution Status Dehydration acute GI bleed acute Pancreatitis acute Dehydration acute GI bleed acute Hypertension acute Pancreatitis acute [facility] Work Phone: Evaluation note* Diagnosis Onset Date Resolution Status GI bleed resolved Hypertension acute GI bleed resolved [facility] Work Phone: Evaluation note* Diagnosis Upper respiratory tract infection, unspecified type- Primary Bronchitis Bronchitis, not specified as acute or chronic [facility] Additional Instructions Ice area and elevate, take ibuprofen as needed for swelling and pain. Use crutches and Aircast for as long as you need, you should be able to use the crutches less or not at all after 1 or 2 weeks.[facility] Work Phone: Hospital Discharge instructionsWOhioHealth Doctors Hospital Work Phone: Hospital Discharge instructionsAdditional Instructions [...] prescribed follow-up with your doctor for further testing.[facility] Work Phone: Hospital Discharge instructionsAdditional Instructions Take the Medrol Dosepak as directed. Wear soft collar for support. Return with fever, new or worsening symptoms. Discussed with your primary care provider or orthopedics about outpatient rehabilitation.[facility] Work Phone: Reason for referral (narrative)No reason for referral information availableWOhioHealth Doctors Hospital Work Phone: Summary Purpose Family History No Family History Records Found Relationship Condition Age at Onset Recorded Date/T bill Not Specified Malignant neoplasm of liver Unknown Malignant neoplasm of ovary Unknown Advance Directives No Advanced Directives Records Found Advance Directive Response Recorded Date/ Time Living Will No Cindy 17th, 2022 6:21am Power of Sap Bi Developer No September 20 6:21am Advance Directive Response Recorded Date/ Time Living Will No November 15 5:55pm Power of Sap Bi Developer No November 15 5:55pm Advance Directive Response Recorded Date/ Time Living Will No December 02 9:59am Power of Sap Bi Developer No December 02 9:59am Advance Directive Response Recorded Date/ Time Living Will No December 31, 2021 3:47pm Power of Sap Bi Developer No December 3:47pm Advance Directive Response Recorded Date/ Time Living Will No December 31, 2021 9:47pm Power of Sap Bi Developer No December 9:47pm Advance Directive Response Recorded Date/ Time Living Will No January 06 1:15am Power of Sap Bi Developer No January 06 1:15am Advance Directive Response Recorded Date/ Time Living Will No January 06 4:05am Power of Sap Bi Developer No January 06 4:05am Advance Directive Response Recorded Date/ Time Living Will No February 28 8:34am Power of Sap Bi Developer No February 28, 2022 8:34am Advance Directive Response Recorded Date/ Time Living Will No March 03 7:42pm Power of Sap Bi Developer No March 03, 2022 7:42pm Advance Directive Response Recorded Date/ Time Living Will No April 16 8:29am Power of Sap Bi Developer No April 16, 2023 8:29am Advance Directive Response Recorded Date/ Time Living Will No July 26, 2023 12:11pm Power of Sap Bi Developer No July 25 12:11pm Advance Directive Response Recorded Date/ Time Do you have a Healthcare Power of Sap Bi Developer? No October 15, 2024 12:43pm Advance Directive Response Recorded Date/ Time Do you have a Healthcare Power of Sap Bi Developer? No October 15, 2024 12:43pm Do you have a Healthcare Power of Sap Bi Developer? No October 30, 2024 10:59pm Advance Directive Response Recorded Date/ Time Do you have a Healthcare Power of Sap Bi Developer? No October 15, 2024 12:43pm Do you have a Healthcare Power of Sap Bi Developer? No October 30, 2024 10:59pm Do you have a Healthcare Power of Sap Bi Developer? No November 25, 2024 3:27pm Advance Directive Response Recorded Date/ Time Do you have a Healthcare Power of Sap Bi Developer? No October 15, 2024 12:43pm Do you have a Healthcare Power of Sap Bi Developer? No October 30, 2024 10:59pm Do you have a Healthcare Power of Sap Bi Developer? No November 25, 2024 3:27pm Do you have a Healthcare Power of Sap Bi Developer? No January 11, 2025 5:23pm Chief Complaint [...] section and content) DATE CREATED AUTHOR 10/03/2020 [facility] ([place]) DATE CREATED AUTHOR AUTHOR'S ORGANIZ ATION 05/26/2021 [facility] [place] DATE CREATED AUTHOR AUTHOR'S ORGANIZ ATION [facility]20[facility] DATE CREATED AUTHOR AUTHOR'S ORGANIZ ATION 10/24/2024 [facility] DATE CREATED AUTHOR AUTHOR'S ORGANIZ ATION 01/18/2025 [facility] Goals (unrecognized section and content) Goals [...] Dr. 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 Josef Gonzalez MD Emergency Provider Active Start: October 30, 2024 End: October 31, 2024 Team Status: Inactive Member Role/Relationship Status Dates Makeda Hawkins EXTRA HAND-C Primary Care Provider Active Start: October 30, 2024 End: October 31, 2024 Dr. Josef Gonzalez MD Attending Provider Active Start: October 30, 2024 End: October 31, 2024 Dr. Josef Gonzalez MD Emergency Provider Active Start: October 30, 2024 End: October 31, 2024 Team Status: Inactive Member Role/Relationship Status Dates Makeda Hawkins EXTRA HAND-C Primary Care Provider Active Start: November 07, 2024 End: November 07, 2024 Makeda Hawkins NP-C Attending Provider Active Start: November 07, 2024 End: November 07, 2024 Makeda Hawkins EXTRA HAND-C Referring Provider Active Start: November 07, 2024 End: November 07, 2024 Team Status: Inactive Member Role/Relationship Status Dates Makeda Hawkins EXTRA HAND-C Primary Care Provider Active Start: November 25, 2024 End: November 25, 2024 Dr. Herberth Donohue DO Emergency Provider Active Start : November 25, 2024 End: November 25, 2024 Team Status: Active Member Role/Relationship Status Dates Makeda Hawkins , EXTRA HAND-C Primary care physician Active Team Status: Inactive [...] BE BASED ON THE PRIMARY CLINICAL RECORDS. [facility]. provides no warranty or guarantee of the accuracy or completeness of information in this document.
--- NOTE | 2025-01-18 23:52 | ED.RN ---
at 2335 this RN went into patients room. Patient was anxious and diaphoretic complaining of inability to swallow and difficulty breathing. Physician Dr. Contreras was notified at that time. Dr. Contreras and Dr. Camacho came to patient's bedside and requested a nonrebreather to be applied to the patient and for him to be brought to OR as soon as possible.
[2025-01-19] VITALS (54 sets, daily range): BP systolic 75–163; BP diastolic 42–121; PULSE 45–111; RESP 12–23; TEMP 2.6–37.6; O2SAT 96–100
[2025-01-19] MEDS: REMIFENTANIL HCL 1 MG VIAL IV (00:08)
[2025-01-19] MEDS: Midazolam 2 MG/2 ML Syringe IV (00:10)
--- NOTE | 2025-01-19 00:23 | ED.RN ---
Dr. Camacho the PHARMACY TECHNICIAN INFUSION and the anesthesiologist rushed to patient's bedside. they brought their own equipment to intubate patient in the ED if necessary. After assessing patient and discussing the situation the team decided to take the patient directly to OR. This RN accompanied the team to the OR to ensure the patient's safe arrival. OR staff did not call for report. This RN made herself available to give report if requested by OR staff.
[2025-01-19] MEDS: Cefazolin 1 GM/5 ML Vial 2 GM IV (00:30)
[2025-01-19] MEDS: TRANEXAMIC ACID 1,000 MG/10 ML ML 1000 MG IV (00:52)
--- OUTSIDE RECORDS SUMMARY | 2025-01-19 00:53 | XMS RPT_ITS | CCD ---
Author Organization [facility] Care Team Providers Care It Architecture Analyst Name Role Phone Dr. Ena Holloway Primary Care Provider [phone] Dr. Divya Nobles Emergency Provider [phone] Mandeep Siegelit Provider Dr. Mandeep Sigeel Other Provider 1([facility])[phone] Lucas Barfield Other Provider 1([facility]) Dr. Kyle Ly Other Provider 1([facility])[phone] Carl DATA REPORTING ANALYST, DATA REPORTING ANALYST-C Zabrina Attending Provider Dr. Lucas Barfield Attending [...] Russell PHIPPS, Dr. Cox Attending Provider Tannhofareed DATA REPORTING ANALYST-C, Makeda Primary Care Provider Dr. Josef Gonzalez MD Emergency Provider Dr. Josef Gonzalez MD Attending Provider Tannhofareed DATA REPORTING ANALYST-C, Makeda Attending Provider Kalinhofareed DATA REPORTING ANALYST-C, Makeda Referring Provider Dr. Herberth Donohue DO Emergency Provider Care Physician, No Primary Primary Care Physicia n Unavailable Russell PHIPPS, Dr. Cox Attending Physician Dr. Kenny Wells DO Emergency Department Physici an Kalinhofareed DATA REPORTING ANALYST-C, Makeda Primary Care Physician Dr. Josef Gonzalez MD Attending Physician Dr. Josef Gonzalez MD Emergency Department Phys ician Shruthi DATA REPORTING ANALYST-C, Makeda Attending Physician Dr. Herberth Donohue DO Attending Physician Dr. Herberth Donohue DO Emergency Department Physician Keisha GUERRA, Dr. Adithya Dempsey Attending Physician Dr. Herberth Donohue DO Referring Provider Maricel Grullon Attending Physician Hossein GUERRA, Dr. Belle Attending Physician Alex GUERRA, Junior Emergency Department Physician Herberth [...] 05, 2018 12:00am February 08, 2018 1:08am [id number] actuat albuterol 0.09 mg/actuat metered dose [...] oral solution (1 source) alpha-Adrenergic Agonist, Uncompetitive U-fkezfr-H-aspartate Receptor Antagonist, Sigma-1 Agonist Start: 08-28-2023 take 5 mL by mouth every six hours as needed glbjqsolimqocxa-xqtjqhakcxdoapx-szumtytb thorphan 30-2-10 MG/5ML Syrup Take 5 mL [...] oral tablet (1 source) Corticosteroid Start: 01-11-2025 [place] (Nk) (2 sources) Start: 10-15-2024 [place] (Nk) Active October 15, 2024 12:00am Start: 09-20-2021 [place] (Nk) A ctive September 20, 2021 12:00am [...] 20 mg/ml oral suspension (1 source) Uncompetitive K-gwqctz-V-aspartat e Receptor Antagonist, Sigma-1 Agonist Start: 08-28-2023 [...] Converting Enzyme Inhibitor Start: 12-02-2021 End: 05-02-2024 Lisinopril-[place] chlorothiazide 20-25 mg tablet Discontinued 1 {tbl} [...] Negative S. AUREUS S. aureus Negative Normal [facility] [place] Comment on above: Performed By: #### L 100.0100, BTSPAT, L501.5200, L501.9985, M100.651 #### [facility] [address] [place], [address] 12 Lead EKGon 01-16-2025 12 Lead EKG [facility] [address] [place] [address] 12 Lead EKG 01/16/25 0836 MR#: [id number] Acct: [id number] Name: ANDREW MCLEAN Jr. Rep #: [id number] : 1980 45 From: Yoshi Catalan MD Attending Dr: Dr. Adan Villagran MD Status: PRE [facility] Ordering Dr: Adan Villagran MD Date: 01/16/25 Location: [facility] Sex: M C Admitted: Test Reason : PREOP Blood Pressure : */* mmHG Vent. Rate : 68 BPM Atrial Rate : 68 BPM P-R Int : 182 ms QRS Dur : 82 ms QT Int : 386 ms P-R-T Axes : 24 14 26 degrees QTcB Int : 410 ms Normal sinus rhythm Normal ECG Confirmed by YOSHI CATALAN MD ([id number]), development editor BRIAN CASTELLANOS ([id number]) on 01/17/2025 7:36:35 AM Referred By: Adan Villagran Confirmed By: YOSHI CATALAN MD 01/17/25 0736 Date Yoshi Catalan MD CC: LUCIANO Hawkins; Dr. Adan Villagran MD Signed Normal [facility] CBC W/Diff, Automatedon 01-04 Absolute Lymph 3.21 X10 3/uL Normal 0.83-4.51 [facility] Comment on above: Performed By: #### L 100.0100, BTSPAT, L501.5200, L501.9985, M100.651 #### [facility] [address] [place], [address] Absolute Neut 4.5 X10 3/uL Normal 2.0-7.7 [facility] Comment on above: Performed By: #### L 100.0100, BTSPAT, L501.5200, L501.9985, M100.651 #### [facility] [address] [place], [address] Basophils/100 WBC (Bld) 1.2 % High 0-1 [facility] Comment on above: Performed By: #### L 100.0100, BTSPAT, L501.5200, L501.9985, M100.651 #### [facility] [address] [place], [address] Eosinophils/100 WBC (Bld) 1.8 % Normal 0-5 [facility] Comment on above: Performed By: #### L 100.0100, BTSPAT, L501.5200, L501.9985, M100.651 #### [facility] [address] [place], [address] Erythrocyte distribution width (RBC) [Ratio] 12.0 % Normal 11.6-14.6 [facility] Comment on above: Performed By: #### L 100.0100, BTSPAT, L501.5200, L501.9985, M100.651 #### [facility] [address] [place], [address] Hematocrit (Bld) [Volume fraction] 49.9 % Normal 40-54 [facility] Comment on above: Performed By: #### L 100.0100, BTSPAT, L501.5200, L501.9985, M100.651 #### [facility] [address] [place], [address] Hemoglobin (Bld) [Mass/Vol] 17.7 g/dL High 13.0-16.5 [facility] Comment on above: Performed By: #### L 100.0100, BTSPAT, L501.5200, L501.9985, M100.651 #### [facility] [address] [place], [address] IG% 0.900 Normal 0.0-0.9 [facility] Comment on above: Result Comment: IG% - Immature Granulocytes (promyelocytes, myelocytes and metamyelocytes) > 1% indicates that a LEFT SHIFT is Present. Performed By: #### L 100.0100, BTSPAT, L501.5200, L501.9985, M100.651 #### [facility] [address] [place], [address] Lymphocytes/100 WBC (Bld) 38.0 % Normal 19-41 [facility] Comment on above: Performed By: #### L 100.0100, BTSPAT, L501.5200, L501.9985, M100.651 #### [facility] [address] [place], [address] MCH (RBC) [Entitic mass] 34.2 pg High 27.0-32.0 [facility] Comment on above: Performed By: #### L 100.0100, BTSPAT, L501.5200, L501.9985, M100.651 #### [facility] [address] [place], [address] MCHC (RBC) [Mass/Vol] 35.5 g/dL Normal 32-36 [facility] Comment on above: Performed By: #### L 100.0100, BTSPAT, L501.5200, L501.9985, M100.651 #### [facility] [address] [place], [address] MCV (RBC) [Entitic vol] 96.3 fL High 80-94 [facility] Comment on above: Performed By: #### L 100.0100, BTSPAT, L501.5200, L501.9985, M100.651 #### [facility] [address] [place], [address] Monocytes/100 WBC (Bld) 5.2 % Normal 0-10 [facility] Comment on above: Performed By: #### L 100.0100, BTSPAT, L501.5200, L501.9985, M100.651 #### [facility] [address] [place], [address] Neutrophils/100 WBC (Bld) 52.9 % Normal 47-70 [facility] Comment on above: Performed By: #### L 100.0100, BTSPAT, L501.5200, L501.9985, M100.651 #### [facility] [address] [place], [address] Nucleated RBC (Bld) [#/Vol] 0 10*3/uL Normal 0-5 [facility] Comment on above: Performed By: #### L 100.0100, BTSPAT, L501.5200, L501.9985, M100.651 #### [facility] [address] [place], [address] Platelet mean volume (Bld) [Entitic vol] 11.9 fL Normal 6.2-12.0 [facility] Comment on above: Performed By: #### L 100.0100, BTSPAT, L501.5200, L501.9985, M100.651 #### [facility] [address] [place], [address] Platelets (Bld) [#/Vol] 203 10*3/uL Normal 150-450 [facility] Comment on above: Performed By: #### L 100.0100, BTSPAT, L501.5200, L501.9985, M100.651 #### [facility] [address] [place], [address] RBC (Bld) [#/Vol] 5.18 10*6/uL Normal 4.6-6.2 [facility] Comment on above: Performed By: #### L 100.0100, BTSPAT, L501.5200, L501.9985, M100.651 #### [facility] [address] [place], [address] RDW SD 42.9 fl Normal 35.1-43.9 [facility] Comment on above: Performed By: #### L 100.0100, BTSPAT, L501.5200, L501.9985, M100.651 #### [facility] [address] [place], [address] WBC (Bld) [#/Vol] 8.5 10*3/uL Normal 4.4-11.0 [facility] Comment on above: Performed By: #### L 100.0100, BTSPAT, L501.5200, L501.9985, M100.651 #### [facility] [address] [place], [address] Hemoglobin A1con 01-16-2025 HbA1c (Bld) [Mass fraction] 5.2 % Normal <=5.6 [facility] Comment on above: Result Comment: Norm al < 5.7 % Prediabetic 5.7 - 6.4 % Diabetic >or= 6.5 % Please note range changes. Performed By: #### L 100.0100, BTSPAT, L501.5200, L501.9985, M100.651 #### [facility] [address] [place], [address] Magnesiumon 01-16-2025 Magnesium [Mass/Vol] 2.4 mg/dL High 1.5-2.2 [facility] Comment on above: Performed By: #### L 100.0100, BTSPAT, L501.5200, L501.9985, M100.651 #### [facility] [address] [place], [place], [address] Orthopedic Visit Reporton Orthopedic Visit Report [facility] [address] [place] [address] OFFICE VISIT Date of Service: 01/16/25 MR#: [id number] Acct: [id number] Name: ANDREW MCLEAN Jr. Rep #: [id number] : 1980 Provider: Dr. Adan Villagran MD Age/Sex: 45/M Location: [facility].LUCAS Status: Signed Intake Vital Signs 01/11/25 17:14 [...] by me, Dr. Adan Villagran MD 01/16/25 7639. Part of today???s visit was documented by [...] Assessment a (more content not included)... Normal [facility] Type AND Screen - PAT ONLYon 01-16-2025 Ab SCREEN GEL Negative Normal [facility] Comment on above: Order Comment: Surge ry Date: 01/18/25 Reason for Laboratory Test PREOP [id number] N/A N N S CERVICAL FUSION Performed By: #### L 100.0100, BTSPAT, L501.5200, L501.9985, M100.651 #### [facility] [address] [place], [address] Emergency Department Summary on 01-11-2025 Emergency Department Summary [facility] Medical Records Department [address] [place] [address] Emergency Department Summary 01/11/25 MR#: [id number] Acct: [id number] Name: ANDREW MCLEAN . Rep #: [id number] : 1980 45 From: Junior Johnson MD [...] needs to come to the emergency department. [facility] Medical History Migraines Asthma Internal [...] of the right upper extremity does show e d tech strength on the right 4 out of [...] the patient medically admitted for placement and residential facility/rehab if he is having that frequent [...] record Management (more content not included)... Normal [facility] Cerv Spine 2 or 3 Viewson Cerv Spine 2 or 3 Views [facility] Services [address] [place] [address] Cerv Spine 2 or 3 Views MR#: [id number] Acct: [id number] Name: ANDREW MCLEAN Jr. Rep #: [id number] : 1980 M 44 From: Onel Wylie MD PCP: LUCIANO Peñaloza Status: DEP AMB Study: Cerv Spine 2 or 3 Views Date of Exam: 01/05/25 Exam# [id number] Ordering Dr: Maricel Mcintyre PROCEDURE: CERV SPINE [...] Spondylosis. No visualized instability. Disclaimer: Reading Location: [id number] CC: DATA REPORTING ANALYST-C Makeda Hawkins; ZAHRAA Celis Natural Science Curator: Signed Normal [facility] Orthopedic Visit Reporton Orthopedic Visit Report [facility] [address] [place] [address] [place] [address] OFFICE VISIT Date of Service: 01/05/25 MR#: [id number] Acct: [id number] Name: ANDREW MCLEAN JrPing Rep #: [id number] : 1980 Provider: ZAHRAA Celis Age/Sex: 44/M Location: [facility].LUCAS Status: Signed Intake Vital Signs 11/25/24 14:25 01/05/25 08:05 Height 5 ft 9 in 5 ft 9 in Weight: 202 lb BMI 29.8 Intake Visit Reasons: CERVICAL SPINE Chief Complaint: cervical spine Accompanied by: Significant Other Is patient in pain?: Yes (cervical spine) Pain scale (1-10): 7 Allergies No Known Allergies Allergy (Verified 01/05/25 08:08) [facility] Medical History Migraines Asthma Internal [...] the upper extremities shows grade 4 right e d tech strength, triceps all other muscle groups shows [...] in detai (more content not included)... Normal [facility] Magnetic resonance imaging r eportOrdered By: Rose Mesa on 12-24-2024 Study report [facility] Imaging Services [address] [place] [address] Spine Cervical (Routine) MR#: [id number] Acct: [id number] Name: PABLOANDREW Jr. Rep #: [id number] : 1980 M 44 From: Neri Mesa MD PCP: Makeda Hawkins, DATA REPORTING ANALYST-C Status: REG C Study:Spine Cervical (Routine) Date of Exam: 12/23/24 Exam# [id number] Ordering Dr: Makeda Hawkins PROCEDURE: SPINE CERVICAL [...] reflect an atypical osseous hemangioma. Reading Location: [id number] CC: LUCIANO Hawkins ~ Natural Science Curator: Signed [facility] Spine Cervical (Routine)on 0 12-23-2024 Spine Cervical (Routine) [facility] Imaging Services [address] [place] [address] Spine Cervical (Routine) MR#: [id number] Acct: [id number] Name: ANDREW MCLEAN Jr. Rep #: [id number] : 1980 M 44 From: Rose Mesa MD PCP: LUCIANO Peñaloza Status: REG CLI Study: Spine Cervical (Routine) Date of Exam: Exam# [id number] Ordering Dr: Makeda Hawkins PROCEDURE: SPINE CERVICAL [...] reflect an atypical osseous hemangioma. Reading Location: [facility] CC: LUCIANO Hawkins Natural Science Curator: Signed Normal [facility] Cerv Spine 2 or 3 Viewson Cerv Spine 2 or 3 Views [facility] Services [address] [place] [address] Cerv Spine 2 or 3 Views MR#: [id number] Acct: [id number] Name: ANDREW MCLEAN . Rep #: [id number] : 1980 M 44 From: Lucinda Guerra MD PCP: LUCIANO Peñaloza Status: REG ER Study: Cerv Spine 2 or 3 Views Date of Exam: 11/25/24 Exam# [id number] Ordering Dr: Herberth Donohue DO PROCEDURE: CERV [...] spasm. 3. Mild degenerative changes. Reading Location: [id number] CC: LUCIANO Hawkins; Dr. Herberth Donohue DO Natural Science Curator: Signed Normal [facility] Emergency Department Summary on 11-25-2024 Emergency Department Summary [facility] Medical Records Department [address] [place] [address] Emergency Department Summary 11/25/24 MR#: [id number] Acct: [id number] Name: ANDREW MCLEAN . Rep #: [id number] : 1980 44 From: Herberth Sharpe PCP: LUCIANO Peñaloza Status:DEP ER Location: ED HPI History of Present Illness Chief Complaint: Numb/Ting Informant: patient and spouse/S.O. Narrative Narrative: 2-week history of numbness down the right arm to his thumb and at the scapula. No pain no weakness. Is wmyla-soch-njjjbvyi. Denies neck pain. No history of similar. [...] Clinical diagn (more content not included)... Normal [facility] Venous Duplex US, Unilateral on 11-25-2024 Venous Duplex US, Unilateral [facility] [place] [address] Venous Duplex US, Unilateral 11/25/24 1547 MR#: [id number] Acct: [id number] Name: ANDREW MCLEAN Jr. Rep #: [id number] : 1980 44 From: Adithya Valdes MD [...] RVT 11/25/241655 Date Adithya Valdes MD CC: DATA REPORTING ANALYST-Bakari Hawkins; Dr. Herberth Le, DO Date Dictated: 11/25/24 1547 Date Transcribed: 11/25/24 1656 Natural Science Curator: Signed Normal [facility] Magnetic resonance imaging r eportOrdered By: Sandra Earl on 11-09-2024 Study report [facility] Imaging Services [address] [place] [address] MRI Abd WITH and W/O Contrast MR#: [id number] Acct: [id number] Name: ANDREW MCLEAN Jr. Rep #: [id number] : 1980 M 44 From: Elijah Earl MD PCP: LUCIANO Peñaloza Status: REG C LI Study:MRI Abd WITH and W/O Contrast Date of E xam: 11/07/24 Exam# [id number] Ordering Dr: Makeda Hawkins PROCEDURE: MRI ABD [...] masses as detailed, possibly hemangiomata. Reading Location[facility] CC: LUCIANO Hawkins ~ Natural Science Curator: Signed [facility] MRI Abd WITH and W/O Contras ton 11-07-2024 MRI Abd WITH and W/O Contrast [facility] Imaging Services [address] [place] [address] MRI Abd WITH and W/O Contrast MR#: [id number] Acct: [id number] Name: ANDREW MCLEAN Jr. Rep #: [id number] : 1980 M 44 From: Sandra segovia MD PCP: LUCIANO Peñaloza Status: REG CLI Study: MRI Abd WITH and W/O Contrast Date of Exam: Exam# [id number] Ordering Dr: Makeda Hawkins PROCEDURE: MRI ABD [...] masses as detailed, possibly hemangiomata. Reading Location: [place] [address] CC: LUCIANO Hawkins Natural Science Curator: Signed Normal [facility] Bilirubin Test strip Ql (U)O rdered By: Josef Gonzalez on 10-31-2024 Bilirubin Ql (U) Negative Negative [facility] CBC W/Diff, Automatedon 10-05 PLT EST ADEQUATE Normal ADEQ [facility] Comment on above: Performed By: #### L 100.0100, BTSPAT, L501.5200, L501.9985, M100.651 #### [facility] [address] [place], [address] SMEAR COMMENT SCANNED Normal [facility] Comment on above: Performed By: #### L 100.0100, BTSPAT, L501.5200, L501.9985, M100.651 #### [facility] [address] [place], [address] Comprehensive Metabolic Prof ilon 10-31-2024 Albumin [Mass/Vol] 4.5 g/dL Normal 3.5-5.0 [facility] Comment on above: Performed By: #### L 100.0100, BTSPAT, L501.5200, L501.9985, M100.651 #### [facility] [address] [place], [address] Albumin/Globulin [Mass ratio] 1.7 {ratio} Normal 0.9-2.4 [facility] Comment on above: Performed By: #### L 100.0100, BTSPAT, L501.5200, L501.9985, M100.651 #### [facility] [address] [place], [address] ALK PHOS 61 U/L Normal 40-129 [facility] Comment on above: Performed By: #### L 100.0100, BTSPAT, L501.5200, L501.9985, M100.651 #### [facility] [address] [place], [address] ALT [Catalytic activity/Vol] 27 U/L Normal <=46 [facility] Comment on above: Performed By: #### L 100.0100, BTSPAT, L501.5200, L501.9985, M100.651 #### [facility] [address] [place], [address] AST [Catalytic activity/Vol] 20 U/L Normal <=37 [facility] Comment on above: Performed By: #### L 100.0100, BTSPAT, L501.5200, L501.9985, M100.651 #### [facility] [address] [place], [address] Bilirubin [Mass/Vol] 0.53 mg/dL Normal 0.00-1.30 [facility] Comment on above: Performed By: #### L 100.0100, BTSPAT, L501.5200, L501.9985, M100.651 #### [facility] [address] [place], [address] BUN/CRE 9.1 RATIO Low 10-20 [facility] Comment on above: Performed By: #### L 100.0100, BTSPAT, L501.5200, L501.9985, M100.651 #### [facility] [address] [place], [address] Calcium [Mass/Vol] 9.4 mg/dL Normal 7.6-11.0 [facility] Comment on above: Performed By: #### L 100.0100, BTSPAT, L501.5200, L501.9985, M100.651 #### [facility] [address] [place], [address] Chloride [Moles/Vol] 104 mmol/L Normal 98-108 [facility] Comment on above: Performed By: #### L 100.0100, BTSPAT, L501.5200, L501.9985, M100.651 #### [facility] [address] [place], [address] CO2 [Moles/Vol] 20.7 mmol/L Low 21.0-32.0 [facility] Comment on above: Performed By: #### L 100.0100, BTSPAT, L501.5200, L501.9985, M100.651 #### [facility] [address] [place], [address] Creatinine [Mass/Vol] 1.01 mg/dL Normal 0.70-1.20 [facility] Comment on above: Performed By: #### L 100.0100, BTSPAT, L501.5200, L501.9985, M100.651 #### [facility] [address] [place], [address] ECRCL 92.36 ml/min Normal 50-250 [facility] Comment on above: Performed By: #### L 100.0100, BTSPAT, L501.5200, L501.9985, M100.651 #### [facility] [address] [place], [address] GAP 14 Normal 5-15 [facility] Comment on above: Performed By: #### L 100.0100, BTSPAT, L501.5200, L501.9985, M100.651 #### [facility] [address] [place], [address] GFR/1.73 sq M.predicted among non-blacks MDRD (S/P/Bld) [Vol rate/Area] 93 mL/min/{1.73_m2} Normal >60 [facility] Comment on above: Result Comment: mL/m in/1.73m2 CKD-EPI Creatinine Equation (2020) Performed By: #### L 100.0100, BTSPAT, L501.5200, L501.9985, M100.651 #### [facility] [address] [place], [address] Globulin (S) [Mass/Vol] 2.7 g/dL Normal 2.2-4.2 [facility] Comment on above: Performed By: #### L 100.0100, BTSPAT, L501.5200, L501.9985, M100.651 #### [facility] [address] [place], [address] Glucose [Mass/Vol] 91 mg/dL Normal 70-99 [facility] Comment on above: Performed By: #### L 100.0100, BTSPAT, L501.5200, L501.9985, M100.651 #### [facility] [address] [place], [address] Potassium [Moles/Vol] 3.4 mmol/L Normal 3.3-5.1 [facility] Comment on above: Performed By: #### L 100.0100, BTSPAT, L501.5200, L501.9985, M100.651 #### [facility] [address] [place], [address] Sodium [Moles/Vol] 138 mmol/L Normal 133-145 [facility] Comment on above: Performed By: #### L 100.0100, BTSPAT, L501.5200, L501.9985, M100.651 #### [facility] [address] [place], [address] T PROT 7.2 g/dL Normal 5.9-8.4 [facility] Comment on above: Performed By: #### L 100.0100, BTSPAT, L501.5200, L501.9985, M100.651 #### [facility] [address] [place], [address] Urea nitrogen [Mass/Vol] 9 mg/dL Normal 4-19 [facility] Comment on above: Performed By: #### L 100.0100, BTSPAT, L501.5200, L501.9985, M100.651 #### [facility] [address] [place], [place], [address] Ketones Test strip Ql (U)Ord ered By: Josef Gonzalez on 10-31-2024 Ketones Ql (U) Negative Negative [facility] Lipaseon 10-31-2024 Lipase [Catalytic activity/Vol] 22 U/L Normal 13-75 [facility] Comment on above: Result Comment: Plejen mason note: LIPASE revised reference range effective 22. New Lipase methodology. Expected to produce lower values than the previous assay method. NEW Reference Range: 13 - 75 U/L Performed By: #### L 100.0100, BTSPAT, L501.5200, L501.9985, M100.651 #### [facility] [address] [place], [place], [address] Microscopic analysis of urin e for red blood cells (RBC)Ordered By: Josef Gonzalez on 10-31-2024 Microscopic analysis of urine for red blood cells (RBC) 0 SEEN /hpf 0-5 [facility] Mucus LM Ql (Urine sed)Order ed By: Josef Gonzalez on 10-31-2024 Mucus Ql (Urine sed) 0 SEEN /hpf [facility] Nitrite Test strip Ql (U)Ord ered By: Josef Gonzalez on 10-31-2024 Nitrite Ql (U) Negative Negative [facility] Protein Test strip Ql (U)Ord ered By: Josef Gonzalez on 10-31-2024 Protein Ql (U) 15 mg/dl High Negative [facility] Squamous epithelial cells de tection in urine sediment by light microscopyOrdered By: Josef Gonzalez on 10-31-2024 Epithelial cells.squamous LM Ql (Urine sed) 0 SEEN /hpf 0-5 [facility] Urinalysis, Completeon 10-31 WBC 0-5 SEEN Normal 0-5 [facility] Comment on above: Order Comment: CLEAN CATCH Performed By: #### L 400.0001 #### [facility] [address] [place], [address] BILIRUBIN URINE Negative Normal Negative [facility] Comment on above: Order Comment: CLEAN CATCH Performed By: #### L 400.0001 #### [facility] [address] [place], [address] Clarity (U) Clear Normal Clear [facility] Comment on above: Order Comment: CLEAN CATCH Performed By: #### L 400.0001 #### [facility] [address] [place], [address] Color (U) Yellow Normal Yellow [facility] Comment on above: Order Comment: CLEAN CATCH Performed By: #### L 400.0001 #### [facility] [address] [place], [address] GLUCOSE, UR Normal Normal Normal [facility] Comment on above: Order Comment: CLEAN CATCH Performed By: #### L 400.0001 #### [facility] [address] [place], [address] KETONE UR Negative Normal Negative [facility] Comment on above: Order Comment: CLEAN CATCH Performed By: #### L 400.0001 #### [facility] [address] [place], [address] LEUK ESTERASE Negative Normal Negative [facility] Comment on above: Order Comment: CLEAN CATCH Performed By: #### L 400.0001 #### [facility] [address] [place], [address] Nitrite Ql (U) Negative Normal Negative [facility] Comment on above: Order Comment: CLEAN CATCH Performed By: #### L 400.0001 #### [facility] [address] [place], [address] OCCULT BLOOD-UR Negative Normal Negative [facility] Comment on above: Order Comment: CLEAN CATCH Performed By: #### L 400.0001 #### [facility] [address] [place], [address] pH UR 6.5 Normal 5.0 - 8.0 [facility] Comment on above: Order Comment: CLEAN CATCH Performed By: #### L 400.0001 #### [facility] [address] [place], [address] PROT DIPSTX 15 mg/dl Abnormal Negative [facility] Comment on above: Order Comment: CLEAN CATCH Performed By: #### L 400.0001 #### [facility] [address] [place], [address] SP.GR. DIPSTX 1.010 Normal 1.002-1.030 [facility] Comment on above: Order Comment: CLEAN CATCH Performed By: #### L 400.0001 #### [facility] [address] [place], [address] UROBILI Normal Normal Normal [facility] Comment on above: Order Comment: CLEAN CATCH Performed By: #### L 400.0001 #### [facility] [address] [place], [address] BACTERIA 0 SEEN Normal None Seen [facility] Comment on above: Order Comment: CLEAN CATCH Performed By: #### L 400.0001 #### [facility] [address] [place], [address] EPI,SQUAMOUS 0 SEEN Normal 0-5 [facility] Comment on above: Order Comment: CLEAN CATCH Performed By: #### L 400.0001 #### [facility] [address] [place], [address] Mucus Ql (Urine sed) 0 SEEN Normal [facility] Comment on above: Order Comment: CLEAN CATCH Performed By: #### L 400.0001 #### [facility] [address] [place], [address] RBC 0 SEEN Normal 0-5 [facility] Comment on above: Order Comment: CLEAN CATCH Performed By: #### L 400.0001 #### [facility] [address] [place], [place], [id number] Urine clarityOrdered By: Marcelo Gonzalez on 10-31-2024 Clarity (U) Clear Clear [facility] Urine color determinationOrd ered By: Josef Gonzalez on 10-31-2024 Color (U) Yellow Yellow [facility] Urine glucose detectionOrder ed By: Josef Gonzalez on 10-31-2024 Glucose Ql (U) Normal mg/dl Normal [facility] Urine leukocyte esterase det ection by dipstickOrdered By: Josef Gonzalez on 10-31-2024 Leukocyte esterase Test strip Ql (U) Negative Negative [facility] Urine pHOrdered By: Josef Gonzalez on 10-31-2024 pH (U) 6.5 [pH] 5.0 - 8.0 [facility] Urine sediment bacteria coun t by microscopy (number/high power field)Ordered By: Josef Gonzalez on 10-31-2024 Bacteria LM.HPF (Urine sed) [#/Area] 0 /[HPF] None Seen [facility] Urine specific gravity measu rementOrdered By: Josef Gonzalez on 10-31-2024 Specific gravity (U) [Rel density] 1.010 1.002-1.030 [facility] Urine urobilinogen measureme ntOrdered By: Josef Gonzalez on 10-31-2024 Urobilinogen Ql (U) Normal mg/dl Normal [facility] White blood cell countOrdere d By: Josef Gonzalez on 10-31-2024 White blood cell count 0-5 SEEN /hpf 0-5 [facility] Abdomen/Pelvis W IV Cont ONL Yon 10-30-2024 Abdomen/Pelvis W IV Cont ONLY [facility] Services [address] [place] [address] Abdomen/Pelvis W IV Cont ONLY MR#: [id number] Acct: [id number] Name: PABLOANDREW GUILLE Huston Rep #: [id number] : 1980 M 44 From: Arturo Lucero MD PCP: LUCIANO Peñaloza Status: REG ER Study: Abdomen/Pelvis W IV Cont ONLY Date of Exam: Exam# [id number] Ordering Dr: Josef Gonzalez MD PROCEDURE: ABDOMEN/PELVIS [...] ONLY IMPRESSION: No acute findings. Reading Location: [place] [address] CC: DATA REPORTING ANALYST-C Makeda Hawkins; Dr. Josef Gonzalez MD Natural Science Curator: Signed Normal [facility] Absolute lymphocyte countOrd ered By: Josef Gonzalez on 10-30-2024 Lymphocytes Auto (Unsp spec) [#/Vol] 2.49 10*3/uL 0.83-4.51 [facility] Absolute neutrophil countOrd ered By: Josef Gonzalez on 10-30-2024 Neutrophils (Bld) [#/Vol] 3.4 10*3/uL 2.0-7.7 [facility] Anion gap in Serum or Plasma Ordered By: Josef Gonzalez on 10-30-2024 Anion gap [Moles/Vol] 14 mmol/L 5-15 [facility] Automated lymphocyte count a s percentage of total leukocytesOrdered By: Josef Gonzalez on 10-30-2024 Lymphocytes/100 WBC Auto (Unsp spec) 38.1 % 19-41 [facility] BUN/creatinine ratioOrdered By: Josef Gonzalez on 10-30-2024 Urea nitrogen/Creatinine [Mass ratio] 9.1 mg/mg Low 10-20 [facility] Basophil percentageOrdered B y: Josef Gonzalez on 10-30-2024 Basophils/100 WBC (Bld) 0.9 % 0-1 [facility] Bilirubin, totalOrdered By: Josef Gonzalez on 10-30-2024 Bilirubin [Mass/Vol] 0.53 mg/dL 0.00-1.30 [facility] Blood manual differential co mment interpretation (narrative result)Ordered By: Josef Gonzalez on 10-30-2024 Manual differential comment Steve (Bld) [Interp] SCANNED [facility] Carbon dioxide, total [Moles /volume] in Central venous bloodOrdered By: Josef Gonzalez on 10-30-2024 CO2 [Moles/Vol] 20.7 mmol/L Low 21.0-32.0 [facility] Chloride assayOrdered By: Edenilson Gonzalez on 10-30-2024 Chloride [Moles/Vol] 104 mmol/L 98-108 [facility] Emergency Department Summary on 10-30-2024 Emergency Department Summary [facility] Medical Records Department [address] [place] [address] Emergency Department Summary 10/30/24 MR#: [id number] Acct: [id number] Name: ANDREW MCLEAN Rep #: [id number] : 1980 44 From: Josef Gonzalez MD [...] of the area. No suspicious food intake. 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 Medications helped some, (more content not included)... Normal [facility] Eosinophil percentageOrdered By: Josefmiah Gonzalez on 10-30-2024 Eosinophils/100 WBC (Bld) 0.9 % 0-5 [facility] Erythrocyte distribution wid th ratioOrdered By: Josef Gonzalez on 10-30-2024 Erythrocyte distribution width (RBC) [Ratio] 12.2 % 11.6-14.6 [facility] Erythrocyte distribution wid th standard deviationOrdered By: [place] Lisa on 10-30-2024 Erythrocyte distribution width (RBC) [Ratio] 42.7 fl 35.1-43.9 [facility] Glomerular filtration rate ( GFR) estimation/1.73 sq m using serum, plasma, or whole bOrdered By: Josef Gonzalez on 10-30-2024 GFR/1.73 sq M.predicted among non-blacks MDRD (S/P/Bld) [Vol rate/Area] 93 mL/min/{1.73_m2} >60 [facility] Comment on above: mL/min/1.73m2 CKD-EP I Creatinine Equation (2020) Hematocrit Auto (Bld) [Volum e fraction]Ordered By: Josef Gonzalez on 10-30-2024 Hematocrit (Bld) [Volume fraction] 49.4 % 40-54 [facility] Hemoglobin measurementOrdere d By: Josef Gonzalez on 10-30-2024 Hemoglobin (Bld) [Mass/Vol] 17.6 g/dL High 13.0-16.5 [facility] Immature granulocytes/100 WB C Auto (Bld)Ordered By: Josef Gonzalez on 10-30-2024 Immature granulocytes/100 WBC (Bld) 0.500 % 0.0-0.9 [facility] Comment on above: IG% - Immature Granu locytes (promyelocytes, myelocytes and metamyelocytes) > 1% indicates that a LEFT SHIFT is Present. Laboratory - Chemistry and C hemistry - challengeOrdered By: Josef Gonzalez on 10-30-2024 AST [Catalytic activity/Vol] 20 U/L <38 [facility] Lipase measurementOrdered By : Josef Gonzalez on 10-30-2024 Lipase [Catalytic activity/Vol] 22 U/L 13-75 [facility] Comment on above: Please note:LIPASE r evised reference range effective 22. New Lipase methodology. Expected to produce lower values than the previous assay method. NEW Reference Range: 13 - 75 U/L MCV (mean corpuscular volume ) determinationOrdered By: Josef Gonzalez on 10-30-2024 MCV (RBC) [Entitic vol] 95.0 fL High 80-94 [facility] Mean corpuscular hemoglobin (MCH) determinationOrdered By: Josef Gonzalez on 10-30-2024 MCH (RBC) [Entitic mass] 33.8 pg High 27.0-32.0 [facility] Mean corpuscular hemoglobin concentration (MCHC) determinationOrdered By: Josef Gonzalez on 10-30-2024 MCHC (RBC) [Mass/Vol] 35.6 g/dL 32-36 [facility] Mean platelet volume determi nationOrdered By: Josef Gonzalez on 10-30-2024 Platelet mean volume (Bld) [Entitic vol] 12.1 fL High 6.2-12.0 [facility] Monocyte percentageOrdered B y: Josef Gonzalez on 10-30-2024 Monocytes/100 WBC (Bld) 8.0 % 0-10 [facility] Neutrophil percentageOrdered By: Josef Gonzalez on 10-30-2024 Neutrophils/100 WBC (Bld) 51.6 % 47-70 [facility] Nucleated red blood cell per centageOrdered By: Josef Gonzalez on 10-30-2024 Nucleated RBC/100 WBC (Bld) [Ratio] 0 % 0-5 [facility] Platelet countOrdered By: Edenilson Gonzalez on 10-30-2024 Platelet count TNP [facility] Comment on above: Test not performedPl ease note: For this sample, a platelet estimate is provided rather than a platelet count due to platelet clumping. Other parameters associated with this sample are not affected by platelet clumping. If a more accurate platelet count is required, a redraw of the patient will be necessary.Previous reported result: 116 K/[id number] by: MARIBEL on 10/31/24:0018 AMENDED REPORT 10/31/24 0018 PLT previously reported as: 116 L K/mm3 Platelet estimateOrdered By: Josef Gonzalez on 10-30-2024 Platelets LM Ql (Bld) ADEQUATE ADEQ [facility] Potassium measurement (mass/ volume)Ordered By: Josef Gonzalez on 10-30-2024 Potassium (Unsp spec) [Mass/Vol] 3.4 mmol/L 3.3-5.1 [facility] RBC Auto (Bld) [#/Vol]Ordere d By: Josef Gonzalez on 10-30-2024 RBC (Bld) [#/Vol] 5.20 10*6/uL 4.6-6.2 [facility] Serum creatinine measurement (mass/volume)Ordered By: Josef Gonzalez on 10-30-2024 Creatinine [Mass/Vol] 1.01 mg/dL 0.70-1.20 [facility] Serum globulin measurementOr dered By: Josef Gonzalez on 10-30-2024 Globulin (S) [Mass/Vol] 2.7 g/dL 2.2-4.2 [facility] Serum glucose measurement (m ass/volume)Ordered By: Josef Gonzalez on 10-30-2024 Glucose [Mass/Vol] 91 mg/dL 70-99 [facility] Serum or plasma alanine huggins otransferase (ALT) measurementOrdered By: Josef Gonzalez on 10-30-2024 ALT [Catalytic activity/Vol] 27 U/L <47 [facility] Serum or plasma albumin zo urement (mass/volume)Ordered By: Josef Gonzalez on 10-30-2024 Albumin [Mass/Vol] 4.5 g/dL 3.5-5.0 [facility] Serum or plasma albumin/glob ulin mass ratioOrdered By: Josef Gonzalez on 10-30-2024 Albumin/Globulin [Mass ratio] 1.7 {ratio} 0.9-2.4 [facility] Serum or plasma alkaline cy sphatase measurementOrdered By: Josef Gonzalez on 10-30-2024 ALP [Catalytic activity/Vol] 61 U/L 40-129 [facility] Serum or plasma calcium zo urement (mass/volume)Ordered By: Josef Gonzalez on 10-30-2024 Calcium [Mass/Vol] 9.4 mg/dL 7.6-11.0 [facility] Serum or plasma urea nitroge n measurement (mass/volume)Ordered By: Josef Gonzalez on 10-30-2024 Urea nitrogen [Mass/Vol] 9 mg/dL 4-19 [facility] Sodium levelOrdered By: Donnie Gonzalez on 10-30-2024 Sodium [Moles/Vol] 138 mmol/L 133-145 [facility] Total proteinOrdered By: Marcelo Gonzalez on 10-30-2024 Protein [Mass/Vol] 7.2 g/dL 5.9-8.4 [facility] White blood cell (WBC) count Ordered By: Josef Gonzalez on 10-30-2024 WBC (Bld) [#/Vol] 6.5 10*3/uL 4.4-11.0 [facility] .Auto Diffon 10-17-2024 Basophil, Absolute 0.0 10 3/mcL Normal 0.0-0.3 [facility] Comment on above: Performed By: #### A KIMBERLY, ADIFF, APTT, MDW, GFR, CMP, PRO, TROPHS, PBNP, CBC #### [address] [address] Basophils/100 WBC (Bld) 0.8 % Normal 0.0-2.5 [facility] Comment on above: Performed By: #### A KIMBERLY, ADIFF, APTT, MDW, GFR, CMP, PRO, TROPHS, PBNP, CBC #### [address] [address] Eosinophil, Absolute 0.1 10 3/mcL Normal 0.0-0.7 [facility] Comment on above: Performed By: #### A KIMBERLY, ADIFF, APTT, MDW, GFR, CMP, PRO, TROPHS, PBNP, CBC #### [address] [address] Eosinophils/100 WBC (Bld) 1.8 % Normal 0.0-6.0 [facility] Comment on above: Performed By: #### A KIMBERLY, ADIFF, APTT, MDW, GFR, CMP, PRO, TROPHS, PBNP, CBC #### [address] [address] Lymphocyte, Absolute 1.8 10 3/mcL Normal 0.9-4.3 [facility] Comment on above: Performed By: #### A KIMBERLY, ADIFF, APTT, MDW, GFR, CMP, PRO, TROPHS, PBNP, CBC #### [address] [address] Lymphocytes/100 WBC (Bld) 31.0 % Normal 20.0-40.0 [facility] Comment on above: Performed By: #### A KIMBERLY, ADIFF, APTT, MDW, GFR, CMP, PRO, TROPHS, PBNP, CBC #### [address] [address] Monocyte, Absolute 0.4 10 3/mcL Normal 0.1-1.4 [facility] Comment on above: Performed By: #### A KIMBERLY, ADIFF, APTT, MDW, GFR, CMP, PRO, TROPHS, PBNP, CBC #### [address] [address] Monocytes/100 WBC (Bld) 7.2 % Normal 2.0-13.0 [facility] Comment on above: Performed By: #### A KIMBERLY, ADIFF, APTT, MDW, GFR, CMP, PRO, TROPHS, PBNP, CBC #### [address] [address] Neutrophils/100 WBC (Bld) 59.2 % Normal 50.0-75.0 [facility] Comment on above: Performed By: #### A KIMBERLY, ADIFF, APTT, MDW, GFR, CMP, PRO, TROPHS, PBNP, CBC #### [address] [address] .GFRon 10-17-2024 Estimated Glomerular Filtration Rate 108 ml/min/1.73sqm Normal [facility] Comment on above: Result Comment: Stages [...] MDW, GFR, CMP, PRO, TROPHS, PBNP, CBC ####[address] [address] .MDWon 10-17-2024 Monocyte Distribution Width 17.69 Normal 0.00-20.00 [facility] Comment on above: Result Comment: For ED adult patients suspected of sepsis, MDW<=20.0 does not rule out sepsis or risk of sepsis Performed By: #### A KIMBERLY, ADIFF, APTT, MDW, GFR, CMP, PRO, TROPHS, PBNP, CBC #### [address] [address] .NEUABSon 10-17-2024 Neutrophil, Absolute 3.5 10 3/mcL Normal 2.3-8.1 [facility] Comment on above: Performed By: #### A KIMBERLY, ADIFF, APTT, MDW, GFR, CMP, PRO, TROPHS, PBNP, CBC #### [place] [address] APTTon 10-17-2024 aPTT Coag (Bld) [Time] 30.6 s Normal 25.0-35.0 [facility] Comment on above: Result Comment: For Heparin anticoagulation therapy, the recommended therapeutic range is: 45.4-75.9 seconds. Patients on heparin therapy may have an extreme result. Performed By: #### A KIMBERLY, ADIFF, APTT, MDW, GFR, CMP, PRO, TROPHS, PBNP, CBC #### [address] [address] CBCon 10-17-2024 Erythrocyte distribution width (RBC) [Ratio] 13.3 % Normal 11.5-15.5 [facility] Comment on above: Performed By: #### A KIMBERLY, ADIFF, APTT, MDW, GFR, CMP, PRO, TROPHS, PBNP, CBC #### [address] [address] Hematocrit (Bld) [Volume fraction] 48.6 % Normal 40.0-52.0 [facility] Comment on above: Performed By: #### A KIMBERLY, ADIFF, APTT, MDW, GFR, CMP, PRO, TROPHS, PBNP, CBC #### [address] [address] Hgb 17.1 G/dL Normal 13.0-17.5 [facility] Comment on above: Performed By: #### A KIMBERLY, ADIFF, APTT, MDW, GFR, CMP, PRO, TROPHS, PBNP, CBC #### [place] [address] MCH (RBC) [Entitic mass] 33.9 pg High 27.0-33.0 [facility] Comment on above: Performed By: #### A KIMBERLY, ADIFF, APTT, MDW, GFR, CMP, PRO, TROPHS, PBNP, CBC #### [place] [address] MCHC 35.2 G/dL Normal 32.0-36.0 [facility] Comment on above: Performed By: #### A KIMBERLY, ADIFF, APTT, MDW, GFR, CMP, PRO, TROPHS, PBNP, CBC #### [place] [address] MCV (RBC) [Entitic vol] 96.3 fL Normal 81.0-100.0 [facility] Comment on above: Performed By: #### A KIMBERLY, ADIFF, APTT, MDW, GFR, CMP, PRO, TROPHS, PBNP, CBC #### [place] [address] Platelet 164 10 3/mcL Normal 150-450 [facility] Comment on above: Performed By: #### A KIMBERLY, ADIFF, APTT, MDW, GFR, CMP, PRO, TROPHS, PBNP, CBC #### [place] [address] Platelet mean volume (Bld) [Entitic vol] 9.5 fL Normal 6.4-10.5 [facility] Comment on above: Performed By: #### A KIMBERLY, ADIFF, APTT, MDW, GFR, CMP, PRO, TROPHS, PBNP, CBC #### [address] [address] RBC 5.04 10 6/mcL Normal 4.50-6.00 [facility] Comment on above: Performed By: #### A KIMBERLY, ADIFF, APTT, MDW, GFR, CMP, PRO, TROPHS, PBNP, CBC #### [address] [address] WBC 5.9 10 3/mcL Normal 4.5-10.8 [facility] Comment on above: Performed By: #### A KIMBERLY, ADIFF, APTT, MDW, GFR, CMP, PRO, TROPHS, PBNP, CBC #### [address] [address] CMPon 10-17-2024 Albumin Level 3.8 G/dL Normal 3.5-5.0 [facility] Comment on above: Performed By: #### A KIMBERLY, ADIFF, APTT, MDW, GFR, CMP, PRO, TROPHS, PBNP, CBC #### [address] [address] Albumin/Globulin [Mass ratio] 1.2 {ratio} Normal 1.1-2.5 [facility] Comment on above: Performed By: #### A KIMBERLY, ADIFF, APTT, MDW, GFR, CMP, PRO, TROPHS, PBNP, CBC #### [address] [address] ALP [Catalytic activity/Vol] 63 U/L Normal 40-135 [facility] Comment on above: Performed By: #### A KIMBERLY, ADIFF, APTT, MDW, GFR, CMP, PRO, TROPHS, PBNP, CBC #### [address] [address] ALT [Catalytic activity/Vol] 31 U/L Normal 16-63 [facility] Comment on above: Performed By: #### A KIMBERLY, ADIFF, APTT, MDW, GFR, CMP, PRO, TROPHS, PBNP, CBC #### [address] [address] AST [Catalytic activity/Vol] 22 U/L Normal 10-40 [facility] Comment on above: Performed By: #### A KIMBERLY, ADIFF, APTT, MDW, GFR, CMP, PRO, TROPHS, PBNP, CBC #### [address] [address] Bili Total 0.6 mg/dL Normal 0.2-1.0 [facility] Comment on above: Result Comment: Use of this assay is not recommended for patients undergoing treatment with eltrombopag due to the potential for falsely elevated results. Performed By: #### A KIMBERLY, ADIFF, APTT, MDW, GFR, CMP, PRO, TROPHS, PBNP, CBC #### [place] [id number] BUN/Creatinine Ratio 12 ratio Normal 7-27 [facility] Comment on above: Performed By: #### A KIMBERLY, ADIFF, APTT, MDW, GFR, CMP, PRO, TROPHS, PBNP, CBC #### [address] [address] Calcium [Mass/Vol] 8.9 mg/dL Normal 8.4-10.2 [facility] Comment on above: Performed By: #### A KIMBERLY, ADIFF, APTT, MDW, GFR, CMP, PRO, TROPHS, PBNP, CBC #### [address] [address] Chloride [Moles/Vol] 104 mmol/L Normal 98-107 [facility] Comment on above: Performed By: #### A KIMBERLY, ADIFF, APTT, MDW, GFR, CMP, PRO, TROPHS, PBNP, CBC #### [address] [address] CO2 [Moles/Vol] 28 mmol/L Normal 22-29 [facility] Comment on above: Performed By: #### A KIMBERLY, ADIFF, APTT, MDW, GFR, CMP, PRO, TROPHS, PBNP, CBC #### [address] [address] Creatinine [Mass/Vol] 0.89 mg/dL Normal 0.67-1.17 [facility] Comment on above: Performed By: #### A KIMBERLY, ADIFF, APTT, MDW, GFR, CMP, PRO, TROPHS, PBNP, CBC #### [address] [address] Electrolyte Balance 6.0 mEq/L Normal 4.0-15.0 [facility] Comment on above: Performed By: #### A KIMBERLY, ADIFF, APTT, MDW, GFR, CMP, PRO, TROPHS, PBNP, CBC #### [address] [address] Globulin 3.1 G/dL Normal 2.7-4.4 [facility] Comment on above: Performed By: #### A KIMBERLY, ADIFF, APTT, MDW, GFR, CMP, PRO, TROPHS, PBNP, CBC #### [address] [address] Glucose [Mass/Vol] 95 mg/dL Normal 70-105 [facility] Comment on above: Performed By: #### A KIMBERLY, ADIFF, APTT, MDW, GFR, CMP, PRO, TROPHS, PBNP, CBC #### [address] [address] Potassium [Moles/Vol] 4.3 mmol/L Normal 3.5-5.1 [facility] Comment on above: Performed By: #### A KIMBERLY, ADIFF, APTT, MDW, GFR, CMP, PRO, TROPHS, PBNP, CBC #### [address] [address] Sodium [Moles/Vol] 138 mmol/L Normal 136-145 [facility] Comment on above: Performed By: #### A KIMBERLY, ADIFF, APTT, MDW, GFR, CMP, PRO, TROPHS, PBNP, CBC #### [address] [address] Total Protein 6.9 G/dL Normal 6.4-8.2 [facility] Comment on above: Performed By: #### A KIMBERLY, ADIFF, APTT, MDW, GFR, CMP, PRO, TROPHS, PBNP, CBC #### [facility] [address] [place], [place] [address] Urea nitrogen [Mass/Vol] 11 mg/dL Normal 7-18 [facility] Comment on above: Performed By: #### A KIMBERLY, ADIFF, APTT, MDW, GFR, CMP, PRO, TROPHS, PBNP, CBC #### [place] [id number] [place], [place] [address] CT ANGIOGRAPHY CHEST W/CONTR Iam 10-17-2024 CT [...] 10/17/2024 2:34:48 PM Ordering Provider: DAYAN KIDD [facility] CT ANGIOGRAPHY HEAD W/ CONTR Iam [...] 10/17/2024 1:51:26 PM Ordering Provider: DAYAN KIDD [facility] CT ANGIOGRAPHY NECK W/CONTRA STon 10-17-2024 [...] 10/17/2024 1:48:02 PM Ordering Provider: DAYAN KIDD [facility] LABORATORYOrdered By: SYSTEM SYSTEM on 10-17-2024 [...] [facility] Comment on above: Interpretive Data: nAayeli mathur [employer] (CHEST, 1991, 102:312S-25S) [...] ng/L Male: 0-76 ng/L Testing performed on [email or web address] using a homogeneous sandwich chemiluminescent immunoassay based on Polim[employer] technology. Urea nitrogen [Mass/Vol] 11 mg/dL Normal 7 - 18 mg/dL AO ADM SS Urea nitrogen/Creatinine [Mass ratio] 12 ratio Normal 7 - 27 ratio AO ADM SS WBC (Bld) [#/Vol] 5.9 103/mcL Normal 4.5 - 10.8 10^3/mcL AO Workflow SS PBNPon 10-17-2024 Natriuretic peptide B (Bld) [Mass/Vol] 15 pg/mL Normal 0-125 [facility] Comment on above: Result Comment: NT-p roBNP results of less than 300 pg/mL effectively rules out acute congestive heart failure with 99% negative predictive value. Performed By: #### A KIMBERLY, ADIFF, APTT, MDW, GFR, CMP, PRO, TROPHS, PBNP, CBC ####[address] [place], [place] [address] PROon 10-17-2024 PT Coag (PPP) [Time] 10.9 s Normal 9.0-14.4 [facility] Comment on above: Performed By: #### A KIMBERLY, ADIFF, APTT, MDW, GFR, CMP, PRO, TROPHS, PBNP, CBC #### [facility] [address] [place], [place] [address] PT International Ratio 1.0 Normal [facility] Comment on above: Result Comment: [employer] (CHEST, 1992, 102:312S-25S) recommended therapeutic range for oral anticoagulant therapy is: LOW RISK: Prophylaxis of venous thrombosis INR: 2.0-3.0 Treatment of pulmonary embolism 2.0-3.0 Prevention of systemic embolism 2.0-3.0 HIGH RISK: Mechanical prosthetic valves 2.5-3.5 Performed By: #### A KIMBERLY, ADIFF, APTT, MDW, GFR, CMP, PRO, TROPHS, PBNP, CBC #### [place] [id number] [place], [place] [address] [facility] High Sensitivity Troponin I 5 ng/L Normal 0-76 [facility] Comment on above: Result Comment: High Sensitive Troponin I Reference Ranges: Female: 0-51 ng/L Male: 0-76 ng/L Testing performed on [email or web address] using a homogeneous sandwich chemiluminescent immunoassay based on [employer] technology. Performed By: #### A KIMBERLY, ADIFF, APTT, MDW, GFR, CMP, PRO, TROPHS, PBNP, CBC ####[address] [place], [place] [address] 12 Lead EKGon 10-15-2024 12 Lead EKG [facility] Cardiovascular Services [address] [place] [address] 12 Lead EKG 10/15/24 1231 MR#: [id number] Acct: [id number] Name: ANDREW MCLEAN JrPing Rep #: [id number] : 1980 44 From: Yoshi Catalan MD [...] Normal ECG Confirmed by YOSHI CATALAN MD ([id number]), development editor ELIECER GUERRA ([id number]) on 10/17/2024 11:31:52 AM Referred By: Confirmed By: YOSHI CATALAN MD 10/17/24 1131 Date Yoshi Catalan MD CC: Dr. Kenny Wells, DO; ZAHRAA Lind; No Primary Care Physician Signed Normal [facility] Absolute lymphocyte countOrd ered By: Fallon Kinney on 10-15-2024 Lymphocytes Auto (Unsp spec) [#/Vol] 1.89 10*3/uL 0.83-4.51 [facility] Absolute neutrophil countOrd ered By: Fallon Kinney on 10-15-2024 Neutrophils (Bld) [#/Vol] 5.2 10*3/uL 2.0-7.7 [facility] Anion gap in Serum or Plasma Ordered By: Fallon Kinney on 10-15-2024 Anion gap [Moles/Vol] 12 mmol/L 5-15 [facility] Automated lymphocyte count a s percentage of total leukocytesOrdered By: Fallon Kinney on 10-15-2024 Lymphocytes/100 WBC Auto (Unsp spec) 24.5 % 19-41 [facility] BUN/creatinine ratioOrdered By: Fallon Kinney on 10-15-2024 Urea nitrogen/Creatinine [Mass ratio] 11.1 mg/mg 10-20 [facility] Basophil percentageOrdered B y: Fallon Kinney on 10-15-2024 Basophils/100 WBC (Bld) 0.8 % 0-1 [facility] Bilirubin, totalOrdered By: Fallon Kinney on 10-15-2024 Bilirubin [Mass/Vol] 0.60 mg/dL 0.00-1.30 [facility] CBC W/Diff, Automatedon 10-04 Absolute Lymph 1.89 X10 3/uL Normal 0.83-4.51 [facility] Comment on above: Performed By: #### L 100.0100, BTSPAT, L501.5200, L501.9985, M100.651 #### [facility] [address] [place], [address] Absolute Neut 5.2 X10 3/uL Normal 2.0-7.7 [facility] Comment on above: Performed By: #### L 100.0100, BTSPAT, L501.5200, L501.9985, M100.651 #### [facility] [address] [place], [address] Basophils/100 WBC (Bld) 0.8 % Normal 0-1 [facility] Comment on above: Performed By: #### L 100.0100, BTSPAT, L501.5200, L501.9985, M100.651 #### [facility] [address] [place], [address] Eosinophils/100 WBC (Bld) 1.0 % Normal 0-5 [facility] Comment on above: Performed By: #### L 100.0100, BTSPAT, L501.5200, L501.9985, M100.651 #### [facility] [address] [place], [address] Erythrocyte distribution width (RBC) [Ratio] 12.4 % Normal 11.6-14.6 [facility] Comment on above: Performed By: #### L 100.0100, BTSPAT, L501.5200, L501.9985, M100.651 #### [facility] [address] [place], [address] Hematocrit (Bld) [Volume fraction] 50.9 % Normal 40-54 [facility] Comment on above: Performed By: #### L 100.0100, BTSPAT, L501.5200, L501.9985, M100.651 #### [facility] [address] [place], [address] Hemoglobin (Bld) [Mass/Vol] 17.8 g/dL High 13.0-16.5 [facility] Comment on above: Performed By: #### L 100.0100, BTSPAT, L501.5200, L501.9985, M100.651 #### [facility] [address] [place], [address] IG% 0.400 Normal 0.0-0.9 [facility] Comment on above: Result Comment: IG% - Immature Granulocytes (promyelocytes, myelocytes and metamyelocytes) > 1% indicates that a LEFT SHIFT is Present. Performed By: #### L 100.0100, BTSPAT, L501.5200, L501.9985, M100.651 #### [facility] [address] [place], [address] Lymphocytes/100 WBC (Bld) 24.5 % Normal 19-41 [facility] Comment on above: Performed By: #### L 100.0100, BTSPAT, L501.5200, L501.9985, M100.651 #### [facility] [address] [place], [address] MCH (RBC) [Entitic mass] 33.5 pg High 27.0-32.0 [facility] Comment on above: Performed By: #### L 100.0100, BTSPAT, L501.5200, L501.9985, M100.651 #### [facility] [address] [place], [address] MCHC (RBC) [Mass/Vol] 35.0 g/dL Normal 32-36 [facility] Comment on above: Performed By: #### L 100.0100, BTSPAT, L501.5200, L501.9985, M100.651 #### [facility] [address] [place], [address] MCV (RBC) [Entitic vol] 95.7 fL High 80-94 [facility] Comment on above: Performed By: #### L 100.0100, BTSPAT, L501.5200, L501.9985, M100.651 #### [facility] [address] [place], [address] Monocytes/100 WBC (Bld) 6.0 % Normal 0-10 [facility] Comment on above: Performed By: #### L 100.0100, BTSPAT, L501.5200, L501.9985, M100.651 #### [facility] [address] [place], [address] Neutrophils/100 WBC (Bld) 67.3 % Normal 47-70 [facility] Comment on above: Performed By: #### L 100.0100, BTSPAT, L501.5200, L501.9985, M100.651 #### [facility] [address] [place], [address] Nucleated RBC (Bld) [#/Vol] 0 10*3/uL Normal 0-5 [facility] Comment on above: Performed By: #### L 100.0100, BTSPAT, L501.5200, L501.9985, M100.651 #### [facility] [address] [place], [address] Platelet mean volume (Bld) [Entitic vol] 11.3 fL Normal 6.2-12.0 [facility] Comment on above: Performed By: #### L 100.0100, BTSPAT, L501.5200, L501.9985, M100.651 #### [facility] [address] [place], [address] Platelets (Bld) [#/Vol] 209 10*3/uL Normal 150-450 [facility] Comment on above: Performed By: #### L 100.0100, BTSPAT, L501.5200, L501.9985, M100.651 #### [facility] [address] [place], [address] RBC (Bld) [#/Vol] 5.32 10*6/uL Normal 4.6-6.2 [facility] Comment on above: Performed By: #### L 100.0100, BTSPAT, L501.5200, L501.9985, M100.651 #### [facility] [address] [place], [address] RDW SD 43.6 fl Normal 35.1-43.9 [facility] Comment on above: Performed By: #### L 100.0100, BTSPAT, L501.5200, L501.9985, M100.651 #### [facility] [address] [place], [address] WBC (Bld) [#/Vol] 7.7 10*3/uL Normal 4.4-11.0 [facility] Comment on above: Performed By: #### L 100.0100, BTSPAT, L501.5200, L501.9985, M100.651 #### [facility] [address] [place], [address] CTA Chst, Abd, Pel W and/or WOon 10-15-2024 CTA Chst, Abd, Pel W and/or WO [facility] Imaging Services [address] [place] [address] CTA Chst, Abd, Pel W and/or WO MR#: [id number] Acct: [id number] Name: ANDREW MCLEAN GUILLE Huston Rep #: [id number] : 1980 M 44 From: Talisha Escobedo nd, MD PCP: Care Physician,No Primary Status: [facility] ER Study: CTA Chst, Abd, Pel W and/or WO Date of Exam: 0 10/15/24 Exam# [id number] Ordering Dr: Kenny Wells DO PROCEDURE: CTA [...] THE CHEST, ABDOMEN OR PELVIS. Reading Location: [id number] CC: Dr. Kenny Wells DO; No Primary Care Physician Natural Science Curator: Signed Normal [facility] Carbon dioxide, total [Moles /volume] in Central venous bloodOrdered By: Fallon Kinney on 10-15-2024 CO2 [Moles/Vol] 22.7 mmol/L 21.0-32.0 [facility] Chloride assayOrdered By: Beatris Kinney on 10-15-2024 Chloride [Moles/Vol] 108 mmol/L 98-108 [facility] Comprehensive Metabolic Prof ilon 10-15-2024 Albumin [Mass/Vol] 4.7 g/dL Normal 3.5-5.0 [facility] Comment on above: Performed By: #### L 100.0100, BTSPAT, L501.5200, L501.9985, M100.651 #### [facility] [address] [place], [address] Albumin/Globulin [Mass ratio] 1.6 {ratio} Normal 0.9-2.4 [facility] Comment on above: Performed By: #### L 100.0100, BTSPAT, L501.5200, L501.9985, M100.651 #### [facility] [address] [place], [address] ALK PHOS 66 U/L Normal 40-129 [facility] Comment on above: Performed By: #### L 100.0100, BTSPAT, L501.5200, L501.9985, M100.651 #### [facility] [address] [place], [address] ALT [Catalytic activity/Vol] 32 U/L Normal <=46 [facility] Comment on above: Performed By: #### L 100.0100, BTSPAT, L501.5200, L501.9985, M100.651 #### [facility] [address] [place], [address] AST [Catalytic activity/Vol] 25 U/L Normal <=37 [facility] Comment on above: Performed By: #### L 100.0100, BTSPAT, L501.5200, L501.9985, M100.651 #### [facility] [address] [place], [address] Bilirubin [Mass/Vol] 0.60 mg/dL Normal 0.00-1.30 [facility] Comment on above: Performed By: #### L 100.0100, BTSPAT, L501.5200, L501.9985, M100.651 #### [facility] [address] [place], [address] BUN/CRE 11.1 RATIO Normal 10-20 [facility] Comment on above: Performed By: #### L 100.0100, BTSPAT, L501.5200, L501.9985, M100.651 #### [facility] [address] [place], [address] Calcium [Mass/Vol] 9.4 mg/dL Normal 7.6-11.0 [facility] Comment on above: Performed By: #### L 100.0100, BTSPAT, L501.5200, L501.9985, M100.651 #### [facility] [address] [place], [address] Chloride [Moles/Vol] 108 mmol/L Normal 98-108 [facility] Comment on above: Performed By: #### L 100.0100, BTSPAT, L501.5200, L501.9985, M100.651 #### [facility] [address] [place], [address] CO2 [Moles/Vol] 22.7 mmol/L Normal 21.0-32.0 [facility] Comment on above: Performed By: #### L 100.0100, BTSPAT, L501.5200, L501.9985, M100.651 #### [facility] [address] [place], [address] Creatinine [Mass/Vol] 0.96 mg/dL Normal 0.70-1.20 [facility] Comment on above: Performed By: #### L 100.0100, BTSPAT, L501.5200, L501.9985, M100.651 #### [facility] [address] [place], [address] ECRCL 97.17 ml/min Normal 50-250 [facility] Comment on above: Performed By: #### L 100.0100, BTSPAT, L501.5200, L501.9985, M100.651 #### [facility] [address] [place], [address] GAP 12 Normal 5-15 [facility] Comment on above: Performed By: #### L 100.0100, BTSPAT, L501.5200, L501.9985, M100.651 #### [facility] [address] [place], [address] GFR/1.73 sq M.predicted among non-blacks MDRD (S/P/Bld) [Vol rate/Area] 100 mL/min/{1.73_m2} Normal >60 [facility] Comment on above: Result Comment: mL/m in/1.73m2 CKD-EPI Creatinine Equation (2020) Performed By: #### L 100.0100, BTSPAT, L501.5200, L501.9985, M100.651 #### [facility] [address] [place], [address] Globulin (S) [Mass/Vol] 2.9 g/dL Normal 2.2-4.2 [facility] Comment on above: Performed By: #### L 100.0100, BTSPAT, L501.5200, L501.9985, M100.651 #### [facility] [address] [place], [address] Glucose [Mass/Vol] 85 mg/dL Normal 70-99 [facility] Comment on above: Performed By: #### L 100.0100, BTSPAT, L501.5200, L501.9985, M100.651 #### [facility] [address] [place], [address] Potassium [Moles/Vol] 4.2 mmol/L Normal 3.3-5.1 [facility] Comment on above: Performed By: #### L 100.0100, BTSPAT, L501.5200, L501.9985, M100.651 #### [facility] [address] [place], [address] Sodium [Moles/Vol] 142 mmol/L Normal 133-145 [facility] Comment on above: Performed By: #### L 100.0100, BTSPAT, L501.5200, L501.9985, M100.651 #### [facility] [address] [place], [address] T PROT 7.5 g/dL Normal 5.9-8.4 [facility] Comment on above: Performed By: #### L 100.0100, BTSPAT, L501.5200, L501.9985, M100.651 #### [facility] [address] [place], [address] Urea nitrogen [Mass/Vol] 11 mg/dL Normal 4-19 [facility] Comment on above: Performed By: #### L 100.0100, BTSPAT, L501.5200, L501.9985, M100.651 #### [facility] [address] [place], [address] Emergency Department Summary on 10-15-2024 Emergency Department Summary [facility] Medical Records Department [address] [place] [address] Emergency Department Summary 10/15/24 MR#: [id number] Acct: [id number] Name: ANDREW MCLEAN Rep #: [id number] : 1980 44 From: Fallon VITAL PCP: [...] surgery or travel, hemoptysis, hormone use PFSH [facility] Medical History Migraines Asthma Internal [...] Ox 99 (more content not included)... Normal [facility] Eosinophil percentageOrdered By: Fallon Kinney on 10-15-2024 Eosinophils/100 WBC (Bld) 1.0 % 0-5 [facility] Erythrocyte distribution wid th ratioOrdered By: Fallon Kinney on 10-15-2024 Erythrocyte distribution width (RBC) [Ratio] 12.4 % 11.6-14.6 [facility] Erythrocyte distribution wid th standard deviationOrdered By: Fallon Kinney on 10-15-2024 Erythrocyte distribution width (RBC) [Ratio] 43.6 fl 35.1-43.9 [facility] Glomerular filtration rate ( GFR) estimation/1.73 sq m using serum, plasma, or whole bOrdered By: Fallon Kinney on 10-15-2024 GFR/1.73 sq M.predicted among non-blacks MDRD (S/P/Bld) [Vol rate/Area] 100 mL/min/{1.73_m2} >60 [facility] Comment on above: mL/min/1.73m2 CKD-EP I Creatinine Equation (2020) Hematocrit Auto (Bld) [Volum e fraction]Ordered By: Fallon Kinney on 10-15-2024 Hematocrit (Bld) [Volume fraction] 50.9 % 40-54 [facility] Hemoglobin measurementOrdere d By: Fallon Kinney on 10-15-2024 Hemoglobin (Bld) [Mass/Vol] 17.8 g/dL High 13.0-16.5 [facility] Immature granulocytes/100 WB C Auto (Bld)Ordered By: Fallon Kinney on 10-15-2024 Immature granulocytes/100 WBC (Bld) 0.400 % 0.0-0.9 [facility] Comment on above: IG% - Immature Granu locytes (promyelocytes, myelocytes and metamyelocytes) > 1% indicates that a LEFT SHIFT is Present. L499.0042on 10-15-2024 Trop T High Sen < 6 Normal <=22 [facility] Comment on above: Result Comment: Hemo lysis present, Results??could be affected. ?? Performed By: #### L 100.0100, BTSPAT, L501.5200, L501.9985, M100.651 #### [facility] [address] [place], [address] L499.0043on 10-15-2024 Trop T High Sen Normal <=22 [facility] Comment on above: Result Comment: Canc elled via OM: MD Ordered Performed By: #### L 499.0043 #### [facility] [address] [place], [address] L501.4021on 10-15-2024 Trop T High Sen < 6 Normal <=22 [facility] Comment on above: Performed By: #### L 100.0100, BTSPAT, L501.5200, L501.9985, M100.651 #### [facility] [address] [place], [address] Laboratory - Chemistry and C hemistry - challengeOrdered By: Fallon Kinney on 10-15-2024 AST [Catalytic activity/Vol] 25 U/L <38 [facility] MCV (mean corpuscular volume ) determinationOrdered By: Fallon Kinney on 10-15-2024 MCV (RBC) [Entitic vol] 95.7 fL High 80-94 [facility] Mean corpuscular hemoglobin (MCH) determinationOrdered By: Fallon Kinney on 10-15-2024 MCH (RBC) [Entitic mass] 33.5 pg High 27.0-32.0 [facility] Mean corpuscular hemoglobin concentration (MCHC) determinationOrdered By: Fallon Kinney on 10-15-2024 MCHC (RBC) [Mass/Vol] 35.0 g/dL 32-36 [facility] Mean platelet volume determi nationOrdered By: Fallon Kinney on 10-15-2024 Platelet mean volume (Bld) [Entitic vol] 11.3 fL 6.2-12.0 [facility] Monocyte percentageOrdered B y: Fallon Kinney on 07-12-2025 Monocytes/100 WBC (Bld) 6.0 % 0-10 [facility] Neutrophil percentageOrdered By: Fallon Kinney on 10-15-2024 Neutrophils/100 WBC (Bld) 67.3 % 47-70 [facility] Nucleated red blood cell per centageOrdered By: Fallon Kinney on 10-15-2024 Nucleated RBC/100 WBC (Bld) [Ratio] 0 % 0-5 [facility] Platelet countOrdered By: Beatris Kinney on 10-15-2024 Platelets (Bld) [#/Vol] 209 10*3/uL 150-450 [facility] Potassium measurement (mass/ volume)Ordered By: Fallon Kinney on 10-15-2024 Potassium (Unsp spec) [Mass/Vol] 4.2 mmol/L 3.3-5.1 [facility] RBC Auto (Bld) [#/Vol]Ordere d By: Fallon Kinney on 10-15-2024 RBC (Bld) [#/Vol] 5.32 10*6/uL 4.6-6.2 [facility] Serum creatinine measurement (mass/volume)Ordered By: Fallon Kinney on 10-15-2024 Creatinine [Mass/Vol] 0.96 mg/dL 0.70-1.20 [facility] Serum globulin measurementOr dered By: Fallon Kinney on 10-15-2024 Globulin (S) [Mass/Vol] 2.9 g/dL 2.2-4.2 [facility] Serum glucose measurement (m ass/volume)Ordered By: Fallon Kinney on 10-15-2024 Glucose [Mass/Vol] 85 mg/dL 70-99 [facility] Serum or plasma alanine huggins otransferase (ALT) measurementOrdered By: Fallon Kinney on 10-15-2024 ALT [Catalytic activity/Vol] 32 U/L <47 [facility] Serum or plasma albumin zo urement (mass/volume)Ordered By: Fallon Kinney on 10-15-2024 Albumin [Mass/Vol] 4.7 g/dL 3.5-5.0 [facility] Serum or plasma albumin/glob ulin mass ratioOrdered By: Fallon Kinney on 10-15-2024 Albumin/Globulin [Mass ratio] 1.6 {ratio} 0.9-2.4 [facility] Serum or plasma alkaline cy sphatase measurementOrdered By: Fallon Kinney on 10-15-2024 ALP [Catalytic activity/Vol] 66 U/L 40-129 [facility] Serum or plasma calcium zo urement (mass/volume)Ordered By: Fallon Kinney on 10-15-2024 Calcium [Mass/Vol] 9.4 mg/dL 7.6-11.0 [facility] Serum or plasma urea nitroge n measurement (mass/volume)Ordered By: Fallon Kinney on 10-15-2024 Urea nitrogen [Mass/Vol] 11 mg/dL 4-19 [facility] Sodium levelOrdered By: Fallon Kinney on 10-15-2024 Sodium [Moles/Vol] 142 mmol/L 133-145 [facility] Total proteinOrdered By: Birgit Kinney on 10-15-2024 Protein [Mass/Vol] 7.5 g/dL 5.9-8.4 [facility] Troponin T.cardiac [Mass/vol ume] in Serum or Plasma by High sensitivity methodOrdered By: Fallon Kinney on 10-15-2024 Troponin T.cardiac High sensitivity method [Mass/Vol] < 6 ng/L <22 [facility] Comment on above: Hemolysis present, R esults could be affected. Troponin T.cardiac High sensitivity method [Mass/Vol] < 6 ng/L <22 [facility] White blood cell (WBC) count Ordered By: Fallon Kinney on 10-15-2024 WBC (Bld) [#/Vol] 7.7 10*3/uL 4.4-11.0 [facility] Abdomen/Pelvis W IV Cont ONL Yon 05-02-2024 Abdomen/Pelvis W IV Cont ONLY [facility] Imaging Services [address] [place] [address] Abdomen/Pelvis W IV Cont ONLY MR#: [id number] Acct: [id number] Name: ANDREW MCLEAN Jr. Rep #: [id number] : 1980 M 44 From: Jamee Bell PCP: Care Physician,No Primary Status: REG ER Study: Abdomen/Pelvis W IV Cont ONLY Date of Exam: Exam# [id number] Ordering Dr: Rhett Tyler DO [id number] EXAM: CT Abdomen And Pelvis W/ Contrast [...] Rhett Tyler, DO; No Primary Care Physician Natural Science Curator: Signed Normal [facility] CBC W/Diff, Automatedon 04-07 Absolute Lymph 4.97 X10 3/uL High 0.83-4.51 [facility] Comment on above: Performed By: #### L 100.0100, L500.4050, L501.2450, M100.7900 #### [facility] [address] [place], [address] Absolute Neut 3.9 X10 3/uL Normal 2.0-7.7 [facility] Comment on above: Performed By: #### L 100.0100, L500.4050, L501.2450, M100.7900 #### [facility] [address] [place], [address] Basophils/100 WBC (Bld) 0.7 % Normal 0-1 [facility] Comment on above: Performed By: #### L 100.0100, L500.4050, L501.2450, M100.7900 #### [facility] [address] [place], [address] Eosinophils/100 WBC (Bld) 1.3 % Normal 0-5 [facility] Comment on above: Performed By: #### L 100.0100, L500.4050, L501.2450, M100.7900 #### [facility] [address] [place], [address] Erythrocyte distribution width (RBC) [Ratio] 12.0 % Normal 11.6-14.6 [facility] Comment on above: Performed By: #### L 100.0100, L500.4050, L501.2450, M100.7900 #### [facility] [address] [place], [address] Hematocrit (Bld) [Volume fraction] 49.2 % Normal 40-54 [facility] Comment on above: Performed By: #### L 100.0100, L500.4050, L501.2450, M100.7900 #### [facility] [address] [place], [address] Hemoglobin (Bld) [Mass/Vol] 17.9 g/dL High 13.0-16.5 [facility] Comment on above: Performed By: #### L 100.0100, L500.4050, L501.2450, M100.7900 #### [facility] [address] [place], [address] IG% 0.300 Normal 0.0-0.9 [facility] Comment on above: Result Comment: IG% - Immature Granulocytes (promyelocytes, myelocytes and metamyelocytes) > 1% indicates that a LEFT SHIFT is Present. Performed By: #### L 100.0100, L500.4050, L501.2450, M100.7900 #### [facility] [address] [place], [address] Lymphocytes/100 WBC (Bld) 51.0 % High 19-41 [facility] Comment on above: Performed By: #### L 100.0100, L500.4050, L501.2450, M100.7900 #### [facility] [address] [place], [address] MCH (RBC) [Entitic mass] 33.4 pg High 27.0-32.0 [facility] Comment on above: Performed By: #### L 100.0100, L500.4050, L501.2450, M100.7900 #### [facility] [address] [place], [address] MCHC (RBC) [Mass/Vol] 36.4 g/dL High 32-36 [facility] Comment on above: Performed By: #### L 100.0100, L500.4050, L501.2450, M100.7900 #### [facility] [address] [place], [address] MCV (RBC) [Entitic vol] 91.8 fL Normal 80-94 [facility] Comment on above: Performed By: #### L 100.0100, L500.4050, L501.2450, M100.7900 #### [facility] [address] [place], [address] Monocytes/100 WBC (Bld) 6.4 % Normal 0-10 [facility] Comment on above: Performed By: #### L 100.0100, L500.4050, L501.2450, M100.7900 #### [facility] [address] [place], [address] Neutrophils/100 WBC (Bld) 40.3 % Low 47-70 [facility] Comment on above: Performed By: #### L 100.0100, L500.4050, L501.2450, M100.7900 #### [facility] [address] [place], [address] Nucleated RBC (Bld) [#/Vol] 0 10*3/uL Normal 0-5 [facility] Comment on above: Performed By: #### L 100.0100, L500.4050, L501.2450, M100.7900 #### [facility] [address] [place], [address] Platelet mean volume (Bld) [Entitic vol] 11.6 fL Normal 6.2-12.0 [facility] Comment on above: Performed By: #### L 100.0100, L500.4050, L501.2450, M100.7900 #### [facility] [address] [place], [address] Platelets (Bld) [#/Vol] 221 10*3/uL Normal 150-450 [facility] Comment on above: Performed By: #### L 100.0100, L500.4050, L501.2450, M100.7900 #### [facility] [address] [place], [address] RBC (Bld) [#/Vol] 5.36 10*6/uL Normal 4.6-6.2 [facility] Comment on above: Performed By: #### L 100.0100, L500.4050, L501.2450, M100.7900 #### [facility] [address] [place], [address] RDW SD 40.3 fl Normal 35.1-43.9 [facility] Comment on above: Performed By: #### L 100.0100, L500.4050, L501.2450, M100.7900 #### [facility] [address] [place], [address] WBC (Bld) [#/Vol] 9.8 10*3/uL Normal 4.4-11.0 [facility] Comment on above: Performed By: #### L 100.0100, L500.4050, L501.2450, M100.7900 #### [facility] [address] [place], [address] Comprehensive Metabolic [facility] 05-02-2024 Albumin [Mass/Vol] 4.4 g/dL Normal 3.2-5.0 [facility] Comment on above: Performed By: #### L 100.0100, L500.4050, L501.2450, M100.7900 #### [facility] [address] [place], [address] Albumin/Globulin [Mass ratio] 1.3 {ratio} Normal 0.9-2.4 [facility] Comment on above: Performed By: #### L 100.0100, L500.4050, L501.2450, M100.7900 #### [facility] [address] [place], [address] ALK P 56 U/L Normal 45-117 [facility] Comment on above: Performed By: #### L 100.0100, L500.4050, L501.2450, M100.7900 #### [facility] [address] [place], [address] ALT [Catalytic activity/Vol] 56 U/L Normal 16-61 [facility] Comment on above: Performed By: #### L 100.0100, L500.4050, L501.2450, M100.7900 #### [facility] [address] [place], [address] AST [Catalytic activity/Vol] 25 U/L Normal 15-37 [facility] Comment on above: Performed By: #### L 100.0100, L500.4050, L501.2450, M100.7900 #### [facility] [address] [place], [address] Bilirubin [Mass/Vol] 0.60 mg/dL Normal 0.20-1.00 [facility] Comment on above: Result Comment: For patients on eltrombopag therapy, use of Dimension Valentines TBIL is not recommended. Performed By: #### L 100.0100, L500.4050, L501.2450, M100.7900 #### [facility] [address] [place], [address] BUN/CRE 9.5 RATIO Low 10-20 [facility] Comment on above: Performed By: #### L 100.0100, L500.4050, L501.2450, M100.7900 #### [facility] [address] [place], [address] CA,Total 9.2 mg/dL Normal 8.5-10.1 [facility] Comment on above: Performed By: #### L 100.0100, L500.4050, L501.2450, M100.7900 #### [facility] [address] [place], [address] Chloride [Moles/Vol] 112 mmol/L High 98-107 [facility] Comment on above: Performed By: #### L 100.0100, L500.4050, L501.2450, M100.7900 #### [facility] [address] [place], [address] CO2 [Moles/Vol] 24.0 mmol/L Normal 21.0-32.0 [facility] Comment on above: Performed By: #### L 100.0100, L500.4050, L501.2450, M100.7900 #### [facility] [address] [place], [address] Creatinine [Mass/Vol] 0.95 mg/dL Normal 0.70-1.30 [facility] Comment on above: Result Comment: The validity of the calculated GFR GFRAA in patients over 70 years has not been determined. Clinical correlation is essential. Performed By: #### L 100.0100, L500.4050, L501.2450, M100.7900 #### [facility] [address] [place], [address] ECRCL 107.03 ml/min Normal [facility] Comment on above: Performed By: #### L 100.0100, L500.4050, L501.2450, M100.7900 #### [facility] [address] [place], [address] EST GFR - AA 110 mL/min Normal >60 [facility] Comment on above: Result Comment: Afri can [place] GFR Calc Performed By: #### L 100.0100, L500.4050, L501.2450, M100.7900 #### [facility] [address] [place], [address] GAP 7 Normal 5-15 [facility] Comment on above: Performed By: #### L 100.0100, L500.4050, L501.2450, M100.7900 #### [facility] [address] [place], [address] GFR/1.73 sq M.predicted among non-blacks MDRD (S/P/Bld) [Vol rate/Area] 91 mL/min/{1.73_m2} Normal >60 [facility] Comment on above: Result Comment: Non- GFR Calc Performed By: #### L 100.0100, L500.4050, L501.2450, M100.7900 #### [facility] [address] [place], [address] Globulin (S) [Mass/Vol] 3.5 g/dL Normal 2.2-4.2 [facility] Comment on above: Performed By: #### L 100.0100, L500.4050, L501.2450, M100.7900 #### [facility] [address] [place], [address] Glucose [Mass/Vol] 80 mg/dL Normal 74-106 [facility] Comment on above: Performed By: #### L 100.0100, L500.4050, L501.2450, M100.7900 #### [facility] [address] [place], [address] Potassium [Moles/Vol] 3.9 mmol/L Normal 3.5-5.1 [facility] Comment on above: Performed By: #### L 100.0100, L500.4050, L501.2450, M100.7900 #### [facility] [address] [place], [address] Sodium [Moles/Vol] 143 mmol/L Normal 136-145 [facility] Comment on above: Performed By: #### L 100.0100, L500.4050, L501.2450, M100.7900 #### [facility] [address] [place], [address] T PROT 7.9 g/dL Normal 6.4-8.2 [facility] Comment on above: Performed By: #### L 100.0100, L500.4050, L501.2450, M100.7900 #### [facility] [address] [place], [address] Urea nitrogen [Mass/Vol] 9 mg/dL Normal 7-18 [facility] Comment on above: Performed By: #### L 100.0100, L500.4050, L501.2450, M100.7900 #### [facility] [address] [place], [address] Emergency Department Summary on 05-02-2024 Emergency Department Summary [facility] Medical Records Department [address] [facility] [place] [address] Emergency Department Summary 05/02/24 MR#: [id number] Acct: [id number] Name: ANDREW MCLEAN JrPing Rep #: [id number] : 1980 44 From: Rhett Tyler DO [...] hematuria but denies any dysuria or frequency. [facility] Medical History Migraines Asthma Internal hemorrhage Hypertension Home Medications ???Medication ???Instructions ???Recorded ???Last Taken ???Type hydrocortisone 2.5 % topical cream 1 applic CA QHS #30 grams 01/07/22 Unknown Rx with [...] regular rhy (more content not included)... Normal [facility] Lipaseon 05-02-2024 Lipase [Catalytic activity/Vol] 42 U/L Normal 13-75 [facility] Comment on above: Result Comment: Barbara mason note: LIPASE revised reference range effective 22. New Lipase methodology. Expected to produce lower values than the previous assay method. NEW Reference Range: 13 - 75 U/L Performed By: #### L 100.0100, L500.4050, L501.2450, M100.7900 #### [facility] [address] [place], [address] Partial Thromboplast Timeon 05-02-2024 aPTT Coag (Bld) [Time] 29.0 s Normal 24.1-36.2 [facility] Comment on above: Performed By: #### L 499.0043 #### [facility] [address] [place], [address] Prothrombin Time w/INRon INR Coag (PPP) [Relative time] 0.9 {INR} Normal [facility] Comment on above: Performed By: #### L 499.0043 #### [facility] [address] [place], [address] PT Coag (PPP) [Time] 12.7 s Normal 11.7-14.9 [facility] Comment on above: Performed By: #### L 499.0043 #### [facility] [address] [place], [address] Stool Occult Blood iFOBon STOB Positive Normal [facility] Comment on above: Performed By: #### L 499.0043 #### [facility] [address] [place], [address] Absolute lymphocyte countOrd ered By: Divya Nobles on 04-16-2023 Lymphocytes Auto (Unsp spec) [#/Vol] 1.88 10*3/uL 0.83-4.51 [facility] Basophil percentageOrdered B y: Divya Nobles on 04-16-2023 Basophils/100 WBC (Bld) 0.4 % 0-1 [facility] Chloride [Moles/Vol] 106 mmol/L 98-107 [facility] Eosinophils/100 WBC (Bld) 0.3 % 0-5 [facility] Glucose [Mass/Vol] 107 mg/dL 74-106 [facility] Comment on above: Fasting Glucose resu lt from 100 to 125 mg/dL suggests IMPAIRED HOMEOSTASIS per A.D.A. criteria. Neutrophils (Bld) [#/Vol] 8.2 10*3/uL 2.0-7.7 [facility] Neutrophils/100 WBC (Bld) 75.6 % 47-70 [facility] Potassium [Moles/Vol] 3.3 mmol/L 3.5-5.1 [facility] Sodium [Moles/Vol] 138 mmol/L 136-145 [facility] WBC (Bld) [#/Vol] 10.8 10*3/uL 4.4-11.0 [facility] Blood erythrocytes count (nu mber/volume)Ordered By: Divya Nobles on 04-16-2023 RBC (Bld) [#/Vol] 5.26 10*6/uL 4.6-6.2 [facility] Blood hemoglobin measurement (mass/volume)Ordered By: Divya Nobles on 04-16-2023 Hemoglobin (Bld) [Mass/Vol] 17.2 g/dL 13.0-16.5 [facility] Blood lymphocytes/100 leukoc ytesOrdered By: Divya Nobles on 04-16-2023 Lymphocytes/100 WBC (Bld) 17.4 % 19-41 [facility] Blood monocytes/100 leukocyt esOrdered By: Divya Nobles on 04-16-2023 Monocytes/100 WBC (Bld) 5.9 % 0-10 [facility] Blood platelet mean volumeOr dered By: Divya Nobles on 04-16-2023 Platelet mean volume (Bld) [Entitic vol] 11.3 fL 6.2-12.0 [facility] Determination of erythrocyte mean corpuscular volume (MCV)Ordered By: Divya Nobles on 04-16-2023 MCV (RBC) [Entitic vol] 94.5 fL 80-94 [facility] Hematocrit Auto (Bld) [Volum e fraction]Ordered By: Divya Nobles on 04-16-2023 Hematocrit (Bld) [Volume fraction] 49.7 % 40-54 [facility] - Chemistry and C hemistry - challengeOrdered By: Divya Nobles on 04-16-2023 CO2 [Moles/Vol] 26.0 mmol/L 21.0-32.0 [facility] Urea nitrogen/Creatinine [Mass ratio] 11.9 mg/mg 10-20 [facility] - Hematology and Cell countsOrdered By: Divya Nobles on 04-16-2023 Erythrocyte distribution width (RBC) [Entitic vol] 42.5 fL 35.1-43.9 [facility] Erythrocyte distribution width (RBC) [Ratio] 12.3 % 11.6-14.6 [facility] Immature granulocytes/100 WBC (Bld) 0.400 % 0.0-0.9 [facility] Comment on above: IG% - Immature Granu locytes (promyelocytes, myelocytes and metamyelocytes) > 1% indicates that a LEFT SHIFT is Present. MCH (RBC) [Entitic mass] 32.7 pg 27.0-32.0 [facility] Nucleated RBC/100 WBC (Bld) [Ratio] 0 % 0-5 [facility] MCHC Auto (RBC) [Mass/Vol]Or dered By: Divya Nobles on 04-16-2023 MCHC (RBC) [Mass/Vol] 34.6 g/dL 32-36 [facility] No Panel InformationOrdered By: Divya Nobles on 04-16-2023 D-Dimer Quantitative (PE/DVT) 0.47 FEU/ug/m 0.27-0.49 [facility] Comment on above: NORMAL D-Dimer level (<0.50) indicates no DVT or PE. Estimated Creatinine Clearance Calc 93.33 ml/min [facility] Estimated GFR (MDRD) Amer 103 mL/min >60 [facility] Comment on above: GFR Calc Estimated GFR (MDRD) Non-Af Amer 85 mL/min >60 [facility] Comment on above: Non- GFR Calc Troponin I High Sensitivity 5 pg/mL 3.0-78.0 [facility] Comment on above: Please Note: New Dona t Units and Gender Specific Reference Ranges. For more information see Policy Stat Procedure Valentines High Sensitivity Troponin (TNIH) and attachments. Platelets bldOrdered By: Saba Nobles on 04-16-2023 Platelets (Bld) [#/Vol] 189 10*3/uL 150-450 [facility] Serum or plasma calcium zo urement (mass/volume)Ordered By: Divya Nobles on 04-16-2023 Calcium [Mass/Vol] 9.7 mg/dL 8.5-10.1 [facility] Serum or plasma creatinine m easurement (mass/volume)Ordered By: Divya Nobles on 04-16-2023 Creatinine [Mass/Vol] 1.01 mg/dL 0.70-1.30 [facility] Comment on above: The validity of the calculated GFR & GFRAA in patients over 70 years has not been determined. Clinical correlation is essential. Serum or plasma urea nitroge n measurement (mass/volume)Ordered By: Divya Nobles on 04-16-2023 Urea nitrogen [Mass/Vol] 12 mg/dL 7-18 [facility] Thin prep Papanicolaou smear with manual screeningOrdered By: Divya Nobles on 04-16-2023 Thin prep Papanicolaou smear with manual screening 6 5-15 [facility] - Microbiology an d Antimicrobial susceptibilityOrdered By: Christiano Garcia on 04-10-2023 SARS-CoV-2 (COVID-19) RNA WARNER+probe Ql (Unsp spec) Influenzae A [facility] SARS-CoV-2 (COVID-19) RNA WARNER+probe Ql (Unsp spec) Influenzae A [facility] Basophil percentageon 2021 WBC (Bld) [#/Vol] 8.9 10*3/uL 4.4-11.0 [facility] Work Phone: Blood erythrocytes count (nu mber/volume)on 03-03-2022 RBC (Bld) [#/Vol] 5.33 10*6/uL 4.6-6.2 [facility] Work Phone: Blood hemoglobin measurement (mass/volume)on 03-03-2022 Hemoglobin (Bld) [Mass/Vol] 18.4 g/dL 13.0-16.5 [facility] Work Phone: Comment on above: CRITICAL VALUE VERIF IED. CALLED TO [id number] Lindsay Sood.RESULTS READ BACK BY SAME . Blood platelet mean volumeon 03-03-2022 Platelet mean volume (Bld) [Entitic vol] 11.6 fL 6.2-12.0 [facility] Work Phone: Determination of erythrocyte mean corpuscular volume (MCV)on 03-03-2022 MCV (RBC) [Entitic vol] 97.2 fL 80-94 [facility] Work Phone: Hematocrit Auto (Bld) [Volum e fraction]on 03-03-2022 Hematocrit (Bld) [Volume fraction] 51.8 % 40-54 [facility] Work Phone: INR in Blood by Coagulation assayon 03-03-2022 INR Coag (Bld) [Relative time] 1.0 {INR} [facility] Work Phone: Laboratory - Coagulationon 1 05-03-2021 PT Coag (PPP) [Time] 12.6 s 11.7-14.9 [facility] Work Phone: Laboratory - Hematology and Cell countson 03-03-2022 Erythrocyte distribution width (RBC) [Entitic vol] 44.8 fL 35.1-43.9 [facility] Work Phone: [phone] Erythrocyte distribution width (RBC) [Ratio] 12.5 % 11.6-14.6 [facility] Work Phone: [phone] MCH (RBC) [Entitic mass] 34.5 pg 27.0-32.0 [facility] Work Phone: MCHC Auto (RBC) [Mass/Vol]on 03-03-2022 MCHC (RBC) [Mass/Vol] 35.5 g/dL 32-36 [facility] Work Phone: Platelets bldon 03-03-2022 Platelets (Bld) [#/Vol] 262 10*3/uL 150-450 [facility] Work Phone: [phone] Review by pathologiston 02-05 Pathologist review Steve (Unsp spec) [Interp] August [facility] Work Phone: Absolute lymphocyte counton 01-07-2022 Lymphocytes Auto (Unsp spec) [#/Vol] 2.25 10*3/uL 0.83-4.51 [facility] Work Phone: Basophil percentageon 10-04- 2022 Basophil percentage 2.8 mg/dL 2.5-4.9 [facility] Work Phone: Basophils/100 WBC (Bld) 1.0 % 0-1 [facility] Work Phone: Chloride [Moles/Vol] 115 mmol/L 98-107 [facility]: Eosinophils/100 WBC (Bld) 3.5 % 0-5 [facility] Work Phone: Glucose [Mass/Vol] 85 mg/dL 74-106 [facility] Work Phone: Neutrophils (Bld) [#/Vol] 2.4 10*3/uL 2.0-7.7 [facility] Work Phone: Neutrophils/100 WBC (Bld) 45.7 % 47-70 [facility] Work Phone: Potassium [Moles/Vol] 3.8 mmol/L 3.5-5.1 [facility]: Sodium [Moles/Vol] 143 mmol/L 136-145 [facility] Work Phone: WBC (Bld) [#/Vol] 5.2 10*3/uL 4.4-11.0 [facility] Work Phone: Blood erythrocytes count (nu mber/volume)on 01-07-2022 RBC (Bld) [#/Vol] 4.19 10*6/uL 4.6-6.2 [facility] Work Phone: Blood hemoglobin measurement (mass/volume)on 01-07-2022 Hemoglobin (Bld) [Mass/Vol] 14.8 g/dL 13.0-16.5 [facility] Work Phone: Blood lymphocytes/100 leukoc yteson 01-07-2022 Lymphocytes/100 WBC (Bld) 43.4 % 19-41 [facility] Work Phone: Blood monocytes/100 leukocyt eson 01-07-2022 Monocytes/100 WBC (Bld) 6.2 % 0-10 [facility] Work Phone: [phone] Blood platelet mean volumeon 01-07-2022 Platelet mean volume (Bld) [Entitic vol] 11.5 fL 6.2-12.0 [facility] Work Phone: [phone] Determination of erythrocyte mean corpuscular volume (MCV)on 01-07-2022 MCV (RBC) [Entitic vol] 99.0 fL 80-94 [facility] Work Phone: Hematocrit Auto (Bld) [Volum e fraction]on 01-07-2022 Hematocrit (Bld) [Volume fraction] 41.5 % 40-54 [facility] Work Phone: Laboratory - Chemistry and C hemistry - challengeon 01-07-2022 CO2 [Moles/Vol] 24.0 mmol/L 21.0-32.0 [facility] Work Phone: [phone] Magnesium [Mass/Vol] 2.2 mg/dL 1.6-2.6 [facility] Work Phone: Urea nitrogen/Creatinine [Mass ratio] 7.4 mg/mg 10-20 [facility] Work Phone: [phone] Laboratory - Hematology and Cell countson 01-07-2022 Erythrocyte distribution width (RBC) [Entitic vol] 44.6 fL 35.1-43.9 [facility] Work Phone: [phone] Erythrocyte distribution width (RBC) [Ratio] 12.4 % 11.6-14.6 [facility] Work Phone: Immature granulocytes/100 WBC (Bld) 0.200 % 0.0-0.9 [facility] Work Phone: Comment on above: IG% - Immature Granu locytes (promyelocytes, myelocytes and metamyelocytes) > 1% indicates that a LEFT SHIFT is Present. MCH (RBC) [Entitic mass] 35.3 pg 27.0-32.0 [facility] Work Phone: Nucleated RBC/100 WBC (Bld) [Ratio] 0 % 0-5 [facility] Work Phone: MCHC Auto (RBC) [Mass/Vol]on 01-07-2022 MCHC (RBC) [Mass/Vol] 35.7 g/dL 32-36 [facility] Work Phone: [phone] No Panel Informationon 01-07 Estimated Creatinine Clearance Calc 92.00 ml/min [facility] Work Phone: [phone] GFR (MDRD) Amer 96 mL/min >60 [facility] Work Phone: [phone] Comment on above: GFR Calc Estimated GFR (MDRD) Non-Af Amer 79 mL/min >60 [facility] Work Phone: Comment on above: Non- GFR Calc Platelets bldon 01-07-2022 Platelets (Bld) [#/Vol] 182 10*3/uL 150-450 [facility] Work Phone: [phone] Serum or plasma calcium zo urement (mass/volume)on 01-07-2022 Calcium [Mass/Vol] 8.0 mg/dL 8.5-10.1 [facility] Work Phone: Serum or plasma creatinine m easurement (mass/volume)on 01-07-2022 Creatinine [Mass/Vol] 1.08 mg/dL 0.70-1.30 [facility] Work Phone: Comment on above: The validity of the calculated GFR & GFRAA in patients over 70 years has not been determined. Clinical correlation is essential. Serum or plasma urea nitroge n measurement (mass/volume)on 01-07-2022 Urea nitrogen [Mass/Vol] 8 mg/dL 7-18 [facility] Work Phone: [phone] Thin prep Papanicolaou smear with manual screeningon 01-07-2022 Thin prep Papanicolaou smear with manual screening 4 5-15 [facility] Work Phone: Absolute lymphocyte counton 01-06-2022 Lymphocytes Auto (Unsp spec) [#/Vol] 2.14 10*3/uL 0.83-4.51 [facility] Work Phone: Basophil percentageon 2021 Amylase [Catalytic activity/Vol] 34 U/L 25-115 [facility] Work Phone: Basophils/100 WBC (Bld) 0.8 % 0-1 [facility] Work Phone: Bilirubin [Mass/Vol] 0.30 mg/dL 0.20-1.00 [facility] Work Phone: Comment on above: For patients on eltr ombopag therapy, use of Dimension Valentines TBIL is not recommended. Chloride [Moles/Vol] 112 mmol/L 98-107 [facility] Work Phone: Eosinophils/100 WBC (Bld) 2.1 % 0-5 [facility] Work Phone: Glucose [Mass/Vol] 100 mg/dL 74-106 [facility] Work Phone: Comment on above: Fasting Glucose resu lt from 100 to 125 mg/dL suggests IMPAIRED HOMEOSTASIS per A.D.A. criteria. Neutrophils (Bld) [#/Vol] 3.5 10*3/uL 2.0-7.7 [facility] Work Phone: Neutrophils/100 WBC (Bld) 56.1 % 47-70 [facility] Work Phone: Potassium [Moles/Vol] 3.7 mmol/L 3.5-5.1 [facility] Work Phone: Comment on above: Slight Hemolysis, Re sult may be falsely increased. Protein [Mass/Vol] 7.7 g/dL 6.4-8.2 [facility] Work Phone: Sodium [Moles/Vol] 143 mmol/L 136-145 [facility] Work Phone: WBC (Bld) [#/Vol] 6.2 10*3/uL 4.4-11.0 [facility] Work Phone: Blood erythrocytes count (nu mber/volume)on 01-06-2022 RBC (Bld) [#/Vol] 4.59 10*6/uL 4.6-6.2 [facility] Work Phone: Blood hemoglobin measurement (mass/volume)on 01-06-2022 Hemoglobin (Bld) [Mass/Vol] 15.8 g/dL 13.0-16.5 [facility] Work Phone: Blood lymphocytes/100 leukoc yteson 01-06-2022 Lymphocytes/100 WBC (Bld) 34.6 % 19-41 [facility] Work Phone: Blood monocytes/100 leukocyt eson 01-06-2022 Monocytes/100 WBC (Bld) 6.1 % 0-10 [facility] Work Phone: Blood platelet mean volumeon 01-06-2022 Platelet mean volume (Bld) [Entitic vol] 11.8 fL 6.2-12.0 [facility] Work Phone: Determination of erythrocyte mean corpuscular volume (MCV)on 01-06-2022 MCV (RBC) [Entitic vol] 97.8 fL 80-94 [facility] Work Phone: Direct bilirubinon 2 Bilirubin.direct [Mass/Vol] 0.16 mg/dL 0.00-0.30 [facility] Work Phone: Erythrocyte sedimentation ra evette 01-06-2022 ESR (Bld) [Velocity] 11 mm/h 0-20 [facility] Work Phone: Hematocrit Auto (Bld) [Volum e fraction]on 01-06-2022 Hematocrit (Bld) [Volume fraction] 44.9 % 40-54 [facility] Work Phone: INR in Blood by Coagulation assayon 01-06-2022 INR Coag (Bld) [Relative time] 1.1 {INR} [facility] Work Phone: Laboratory - Chemistry and C hemistry - challengeon 01-06-2022 Lipase [Catalytic activity/Vol] 193 U/L 73-393 [facility] Work Phone: [phone] ALP [Catalytic activity/Vol] 58 U/L 45-117 [facility] Work Phone: [phone] ALT [Catalytic activity/Vol] 60 U/L 16-61 [facility] Work Phone: [phone] CO2 [Moles/Vol] 25.0 mmol/L 21.0-32.0 [facility] Work Phone: [phone] Globulin (S) [Mass/Vol] 3.8 g/dL 2.2-4.2 [facility] Work Phone: [phone] Urea nitrogen/Creatinine [Mass ratio] 7.5 mg/mg 10-20 [facility] Work Phone: [phone] Laboratory - Coagulationon 1 aPTT Coag (Bld) [Time] 30.4 s 24.1-36.2 [facility] Work Phone: [phone] PT Coag (PPP) [Time] 13.5 s 11.7-14.9 [facility] Work Phone: [phone] Laboratory - Hematology and Cell countson 01-06-2022 Erythrocyte distribution width (RBC) [Entitic vol] 43.8 fL 35.1-43.9 [facility] Work Phone: [phone] Erythrocyte distribution width (RBC) [Ratio] 12.2 % 11.6-14.6 [facility] Work Phone: [phone] Immature granulocytes/100 WBC (Bld) 0.300 % 0.0-0.9 [facility] Work Phone: [phone] Comment on above: IG% - Immature Granu locytes (promyelocytes, myelocytes and metamyelocytes) > 1% indicates that a LEFT SHIFT is Present. MCH (RBC) [Entitic mass] 34.4 pg 27.0-32.0 [facility] Work Phone: Nucleated RBC/100 WBC (Bld) [Ratio] 0 % 0-5 [facility] Work Phone: [phone] MCHC Auto (RBC) [Mass/Vol]on 01-06-2022 MCHC (RBC) [Mass/Vol] 35.2 g/dL 32-36 [facility] Work Phone: No Panel Informationon 01-06 Estimated Creatinine Clearance Calc 82.80 ml/min [facility] Work Phone: [phone] Estimated GFR (MDRD) Amer 85 mL/min >60 [facility] Work Phone: Comment on above: GFR Calc Estimated GFR (MDRD) Non-Af Amer 70 mL/min >60 [facility] Work Phone: Comment on above: Non- GFR Calc Platelets bldon 01-06-2022 Platelets (Bld) [#/Vol] 219 10*3/uL 150-450 [facility] Work Phone: Serum or plasma C reactive p rotein measurement (mass/volume)on 01-06-2022 CRP [Mass/Vol] mg/L 0.0-3.0 [facility] Work Phone: Comment on above: C-Reactive Protein ( CRP) provides useful information for thediagnosis, therapy and monitoring of inflammatory processesand associated diseases. For the evaluation of Relative Riskfor Cardiovascular Disease, a High Sensitivity CRP (HSCRP)should be ordered. Serum or plasma albumin zo urement (mass/volume)on 01-06-2022 Albumin [Mass/Vol] 3.9 g/dL 3.2-5.0 [facility] Work Phone: Serum or plasma calcium zo urement (mass/volume)on 01-06-2022 Calcium [Mass/Vol] 8.9 mg/dL 8.5-10.1 [facility] Work Phone: Serum or plasma creatinine m easurement (mass/volume)on 01-06-2022 Creatinine [Mass/Vol] 1.20 mg/dL 0.70-1.30 [facility] Work Phone: Comment on above: The validity of the calculated GFR & GFRAA in patients over 70 years has not been determined. Clinical correlation is essential. Serum or plasma urea nitroge n measurement (mass/volume)on 01-06-2022 Urea nitrogen [Mass/Vol] 9 mg/dL 7-18 [facility] Work Phone: Thin prep Papanicolaou smear with manual screeningon 01-06-2022 Thin prep Papanicolaou smear with manual screening 280 U/L 87-241 [facility] Work Phone: [phone] Thin prep Papanicolaou smear with manual screening 28 U/L 15-37 [facility] Work Phone: Comment on above: Slight Hemolysis, Re sult may be falsely increased. Thin prep Papanicolaou smear with manual screening 6 5-15 [facility] Work Phone: Absolute lymphocyte counton 01-02-2022 Lymphocytes Auto (Unsp spec) [#/Vol] 2.63 10*3/uL 0.83-4.51 [facility] Work Phone: Basophil percentageon 2021 Basophils/100 WBC (Bld) 0.8 % 0-1 [facility] Work Phone: Eosinophils/100 WBC (Bld) 2.5 % 0-5 [facility] Work Phone: Neutrophils (Bld) [#/Vol] 3.2 10*3/uL 2.0-7.7 [facility] Work Phone: Neutrophils/100 WBC (Bld) 49.5 % 47-70 [facility] Work Phone: WBC (Bld) [#/Vol] 6.5 10*3/uL 4.4-11.0 [facility] Work Phone: Blood erythrocytes count (nu mber/volume)on 01-02-2022 RBC (Bld) [#/Vol] 4.47 10*6/uL 4.6-6.2 [facility] Work Phone: Blood hemoglobin measurement (mass/volume)on 01-02-2022 Hemoglobin (Bld) [Mass/Vol] 15.2 g/dL 13.0-16.5 [facility] Work Phone: Blood lymphocytes/100 leukoc yteson 01-02-2022 Lymphocytes/100 WBC (Bld) 40.8 % 19-41 [facility] Work Phone: [phone] Blood monocytes/100 leukocyt eson 01-02-2022 Monocytes/100 WBC (Bld) 5.9 % 0-10 [facility] Work Phone: [phone] Blood platelet mean volumeon 01-02-2022 Platelet mean volume (Bld) [Entitic vol] 13.0 fL 6.2-12.0 [facility] Work Phone: Determination of erythrocyte mean corpuscular volume (MCV)on 01-02-2022 MCV (RBC) [Entitic vol] 98.0 fL 80-94 [facility] Work Phone: [phone] Hematocrit Auto (Bld) [Volum e fraction]on 01-02-2022 Hematocrit (Bld) [Volume fraction] 43.8 % 40-54 [facility] Work Phone: Laboratory - Hematology and Cell countson 01-02-2022 Erythrocyte distribution width (RBC) [Entitic vol] 43.8 fL 35.1-43.9 [facility] Work Phone: [phone] Erythrocyte distribution width (RBC) [Ratio] 12.1 % 11.6-14.6 [facility] Work Phone: [phone] Immature granulocytes/100 WBC (Bld) 0.500 % 0.0-0.9 [facility] Work Phone: [phone] Comment on above: IG% - Immature Granu locytes (promyelocytes, myelocytes and metamyelocytes) > 1% indicates that a LEFT SHIFT is Present. MCH (RBC) [Entitic mass] 34.0 pg 27.0-32.0 [facility] Work Phone: [phone] Nucleated RBC/100 WBC (Bld) [Ratio] 0 % 0-5 [facility] Work Phone: [phone] MCHC Auto (RBC) [Mass/Vol]on 01-02-2022 MCHC (RBC) [Mass/Vol] 34.7 g/dL 32-36 [facility] Work Phone: Platelets bldon 01-02-2022 Platelets (Bld) [#/Vol] 172 10*3/uL 150-450 [facility] Work Phone: Basophil percentageon 2021 Chloride [Moles/Vol] 110 mmol/L 98-107 [facility] Work Phone: Glucose [Mass/Vol] 83 mg/dL 74-106 [facility] Work Phone: [phone] Potassium [Moles/Vol] 3.6 mmol/L 3.5-5.1 [facility] Work Phone: Comment on above: Slight Hemolysis, Re sult may be falsely increased. Sodium [Moles/Vol] 141 mmol/L 136-145 [facility] Work Phone: Laboratory - Chemistry and C hemistry - challengeon 01-01-2022 CO2 [Moles/Vol] 26.0 mmol/L 21.0-32.0 [facility] Work Phone: Urea nitrogen/Creatinine [Mass ratio] 13.6 mg/mg 10-20 [facility] Work Phone: [phone] Panel Informationon 01-01 Estimated Creatinine Clearance Calc 84.20 ml/min [facility] Work Phone: Estimated GFR (MDRD) Amer 87 mL/min >60 [facility] Work Phone: [phone] Comment on above: GFR Calc Estimated GFR (MDRD) Non-Af Amer 72 mL/min >60 [facility] Work Phone: Comment on above: Non- GFR Calc Serum or plasma calcium zo urement (mass/volume)on 01-01-2022 Calcium [Mass/Vol] 8.1 mg/dL 8.5-10.1 [facility] Work Phone: Serum or plasma creatinine m easurement (mass/volume)on 01-01-2022 Creatinine [Mass/Vol] 1.18 mg/dL 0.70-1.30 [facility] Work Phone: Comment on above: The validity of the calculated GFR & GFRAA in patients over 70 years has not been determined. Clinical correlation is essential. Serum or plasma urea nitroge n measurement (mass/volume)on 01-01-2022 Urea nitrogen [Mass/Vol] 16 mg/dL 7-18 [facility] Work Phone: Thin prep Papanicolaou smear with manual screeningon 01-01-2022 Thin prep Papanicolaou smear with manual screening 5 5-15 [facility] Work Phone: Absolute lymphocyte counton 12-31-2021 Lymphocytes Auto (Unsp spec) [#/Vol] 2.86 10*3/uL 0.83-4.51 [facility] Work Phone: Basophil percentageon 2021 Basophils/100 WBC (Bld) 0.7 % 0-1 [facility] Work Phone: Bilirubin [Mass/Vol] 0.60 mg/dL 0.20-1.00 [facility] Work Phone: Comment on above: For patients on eltr ombopag therapy, use of Dimension Valentines TBIL is not recommended. Chloride [Moles/Vol] 106 mmol/L 98-107 [facility] Work Phone: Eosinophils/100 WBC (Bld) 1.5 % 0-5 [facility] Work Phone: Glucose [Mass/Vol] 85 mg/dL 74-106 [facility] Work Phone: Neutrophils (Bld) [#/Vol] 5.4 10*3/uL 2.0-7.7 [facility] Work Phone: Neutrophils/100 WBC (Bld) 59.2 % 47-70 [facility] Work Phone: Potassium [Moles/Vol] 3.6 mmol/L 3.5-5.1 [facility] Work Phone: Comment on above: Moderate Hemolysis, Result may be falsely increased. Protein [Mass/Vol] 7.6 g/dL 6.4-8.2 [facility] Work Phone: [phone] Sodium [Moles/Vol] 140 mmol/L 136-145 [facility] Work Phone: [phone] WBC (Bld) [#/Vol] 9.1 10*3/uL 4.4-11.0 [facility] Work Phone: [phone] Blood erythrocytes count (nu mber/volume)on 12-31-2021 RBC (Bld) [#/Vol] 4.91 10*6/uL 4.6-6.2 [facility] Work Phone: [phone] Blood hemoglobin measurement (mass/volume)on 12-31-2021 Hemoglobin (Bld) [Mass/Vol] 17.0 g/dL 13.0-16.5 [facility] Work Phone: [phone] Blood lymphocytes/100 leukoc yteson 12-31-2021 Lymphocytes/100 WBC (Bld) 31.3 % 19-41 [facility] Work Phone: [phone] Blood monocytes/100 leukocyt eson 12-31-2021 Monocytes/100 WBC (Bld) 6.9 % 0-10 [facility] Work Phone: [phone] Blood platelet mean volumeon 12-31-2021 Platelet mean volume (Bld) [Entitic vol] 12.6 fL 6.2-12.0 [facility] Work Phone: [phone] Determination of erythrocyte mean corpuscular volume (MCV)on 12-31-2021 MCV (RBC) [Entitic vol] 98.2 fL 80-94 [facility] Work Phone: [phone] Direct bilirubinon Bilirubin.direct [Mass/Vol] 0.09 mg/dL 0.00-0.30 [facility] Work Phone: [phone] Hematocrit Auto (Bld) [Volum e fraction]on 12-31-2021 Hematocrit (Bld) [Volume fraction] 48.2 % 40-54 [facility] Work Phone: INR in Blood by Coagulation assayon 12-31-2021 INR Coag (Bld) [Relative time] 1.0 {INR} [facility] Work Phone: [phone] Laboratory - Chemistry and C hemistry - challengeon 12-31-2021 ALP [Catalytic activity/Vol] 56 U/L 45-117 [facility] Work Phone: [phone] ALT [Catalytic activity/Vol] 66 U/L 16-61 [facility] Work Phone: [phone] CO2 [Moles/Vol] 26.0 mmol/L 21.0-32.0 [facility] Work Phone: Globulin (S) [Mass/Vol] 3.3 g/dL 2.2-4.2 [facility] Work Phone: [phone] Lipase [Catalytic activity/Vol] 134 U/L 73-393 [facility] Work Phone: [phone] Urea nitrogen/Creatinine [Mass ratio] 17.2 mg/mg 10-20 [facility] Work Phone: Laboratory - Coagulationon 0 12-31-2021 aPTT Coag (Bld) [Time] 31.5 s 24.1-36.2 [facility] Work Phone: [phone] PT Coag (PPP) [Time] 12.7 s 11.7-14.9 [facility] Work Phone: [phone] Laboratory - Hematology and Cell countson 12-31-2021 Erythrocyte distribution width (RBC) [Entitic vol] 44.1 fL 35.1-43.9 [facility] Work Phone: [phone] Erythrocyte distribution width (RBC) [Ratio] 12.1 % 11.6-14.6 [facility] Work Phone: [phone] Immature granulocytes/100 WBC (Bld) 0.400 % 0.0-0.9 [facility] Work Phone: Comment on above: IG% - Immature Granu locytes (promyelocytes, myelocytes and metamyelocytes) > 1% indicates that a LEFT SHIFT is Present. MCH (RBC) [Entitic mass] 34.6 pg 27.0-32.0 [facility] Work Phone: Nucleated RBC/100 WBC (Bld) [Ratio] 0 % 0-5 [facility] Work Phone: [phone] MCHC Auto (RBC) [Mass/Vol]on 12-31-2021 MCHC (RBC) [Mass/Vol] 35.3 g/dL 32-36 [facility] Work Phone: No Panel Informationon 12-31 Estimated Creatinine Clearance Calc 77.63 ml/min [facility] Work Phone: Estimated GFR (MDRD) Amer 79 mL/min >60 [facility] Work Phone: Comment on above: GFR Calc Estimated GFR (MDRD) Non-Af Amer 65 mL/min >60 [facility] Work Phone: Comment on above: Non- GFR Calc Platelets bldon 12-31-2021 Platelets (Bld) [#/Vol] 177 10*3/uL 150-450 [facility] Work Phone: Serum or plasma albumin zo urement (mass/volume)on 12-31-2021 Albumin [Mass/Vol] 4.3 g/dL 3.2-5.0 [facility] Work Phone: Serum or plasma calcium zo urement (mass/volume)on 12-31-2021 Calcium [Mass/Vol] 9.6 mg/dL 8.5-10.1 [facility] Work Phone: [phone] Serum or plasma creatinine m easurement (mass/volume)on 12-31-2021 Creatinine [Mass/Vol] 1.28 mg/dL 0.70-1.30 [facility] Work Phone: Comment on above: The validity of the calculated GFR & GFRAA in patients over 70 years has not been determined. Clinical correlation is essential. Serum or plasma urea nitroge n measurement (mass/volume)on 12-31-2021 Urea nitrogen [Mass/Vol] 22 mg/dL 7-18 [facility] Work Phone: Thin prep Papanicolaou smear with manual screeningon 12-31-2021 Thin prep Papanicolaou smear with manual screening 33 U/L 15-37 [facility] Work Phone: Comment on above: Moderate Hemolysis, Result may be falsely increased. Thin prep Papanicolaou smear with manual screening 8 5-15 [facility] Work Phone: Absolute lymphocyte counton 12-02-2021 Lymphocytes Auto (Unsp spec) [#/Vol] 3.67 10*3/uL 0.83-4.51 [facility] Work Phone: Basophil percentageon 2021 Basophils/100 WBC (Bld) 0.9 % 0-1 [facility] Work Phone: Chloride [Moles/Vol] 103 mmol/L 98-107 [facility] Work Phone: Eosinophils/100 WBC (Bld) 1.2 % 0-5 [facility] Work Phone: Glucose [Mass/Vol] 89 mg/dL 74-106 [facility] Work Phone: Neutrophils (Bld) [#/Vol] 6.1 10*3/uL 2.0-7.7 [facility] Work Phone: Neutrophils/100 WBC (Bld) 57.0 % 47-70 [facility] Work Phone: Potassium [Moles/Vol] 3.8 mmol/L 3.5-5.1 [facility] Work Phone: Sodium [Moles/Vol] 138 mmol/L 136-145 [facility] Work Phone: WBC (Bld) [#/Vol] 10.6 10*3/uL 4.4-11.0 [facility] Work Phone: Blood erythrocytes count (nu mber/volume)on 12-02-2021 RBC (Bld) [#/Vol] 5.85 10*6/uL 4.6-6.2 [facility] Work Phone: Blood hemoglobin measurement (mass/volume)on 12-02-2021 Hemoglobin (Bld) [Mass/Vol] 20.8 g/dL 13.0-16.5 [facility] Work Phone: Comment on above: CRITICAL VALUE VERIF IED. CALLED TO MAKEDA SUNSHINE12/02/21 1045 Fariba Sweeney.RESULTS READ BACK BY SAME . Blood lymphocytes/100 leukoc yteson 12-02-2021 Lymphocytes/100 WBC (Bld) 34.5 % 19-41 [facility] Work Phone: [phone] Blood monocytes/100 leukocyt eson 12-02-2021 Monocytes/100 WBC (Bld) 6.1 % 0-10 [facility] Work Phone: Blood platelet mean volumeon 12-02-2021 Platelet mean volume (Bld) [Entitic vol] 11.6 fL 6.2-12.0 [facility] Work Phone: Determination of erythrocyte mean corpuscular volume (MCV)on 12-02-2021 MCV (RBC) [Entitic vol] 97.6 fL 80-94 [facility] Work Phone: Hematocrit Auto (Bld) [Volum e fraction]on 12-02-2021 Hematocrit (Bld) [Volume fraction] 57.1 % 40-54 [facility] Work Phone: [phone] INR in Blood by Coagulation assayon 12-02-2021 INR Coag (Bld) [Relative time] 1.0 {INR} [facility] Work Phone: Laboratory - Chemistry and C hemistry - challengeon 12-02-2021 CO2 [Moles/Vol] 28.0 mmol/L 21.0-32.0 [facility] Work Phone: Urea nitrogen/Creatinine [Mass ratio] 9.4 mg/mg 10-20 [facility] Work Phone: [phone] Laboratory - Coagulationon 0 12-02-2021 aPTT Coag (Bld) [Time] 29.3 s 24.1-36.2 [facility] Work Phone: [phone] PT Coag (PPP) [Time] 13.4 s 11.7-14.9 [facility] Work Phone: [phone] Laboratory - Hematology and Cell countson 12-02-2021 Erythrocyte distribution width (RBC) [Entitic vol] 43.5 fL 35.1-43.9 [facility] Work Phone: [phone] Erythrocyte distribution width (RBC) [Ratio] 11.9 % 11.6-14.6 [facility] Work Phone: [phone] Immature granulocytes/100 WBC (Bld) 0.300 % 0.0-0.9 [facility] Work Phone: [phone] Comment on above: IG% - Immature Granu locytes (promyelocytes, myelocytes and metamyelocytes) > 1% indicates that a LEFT SHIFT is Present. MCH (RBC) [Entitic mass] 35.6 pg 27.0-32.0 [facility] Work Phone: [phone] Nucleated RBC/100 WBC (Bld) [Ratio] 0 % 0-5 [facility] Work Phone: [phone] MCHC Auto (RBC) [Mass/Vol]on 12-02-2021 MCHC (RBC) [Mass/Vol] 36.4 g/dL 32-36 [facility] Work Phone: [phone] Panel Informationon 12-02 Troponin I High Sensitivity 5 pg/mL 3.0-78.0 [facility] Work Phone: [phone] Comment on above: Please Note: New Dona t Units and Gender Specific Reference Ranges. For more information see Policy Stat Procedure Valentines High Sensitivity Troponin (TNIH) and attachments. Estimated Creatinine Clearance Calc 60.14 ml/min [facility] Work Phone: [phone] Estimated GFR (MDRD) Amer 61 mL/min >60 [facility] Work Phone: [phone] Comment on above: GFR Calc Estimated GFR (MDRD) Non-Af Amer 50 mL/min >60 [facility] Work Phone: Comment on above: Non- GFR Calc Platelets bldon 12-02-2021 Platelets (Bld) [#/Vol] 259 10*3/uL 150-450 [facility] Work Phone: Review by pathologiston 11-05 Pathologist review Steve (Unsp spec) [Interp] Lianne thakkar [facility] Work Phone: [phone] Pathologist review Steve (Unsp spec) [Interp] Reviewed [facility] Work Phone: Comment on above: Previous reported re sult: Lianne thakkar Edited by: RGOOD on 12/03/21:1321Polycythemia MacrocytosisClinical correlation necessary.Zenon Alejo M.D. 12/03/21This case was reviewed with Dr. Stiles who concurs with the above diagnosis. AMENDED REPORT 12/03/21 1321 PATH REV previously reported as: Lianne thakkar Serum or plasma calcium zo urement (mass/volume)on 12-02-2021 Calcium [Mass/Vol] 10.6 mg/dL 8.5-10.1 [facility] Work Phone: Serum or plasma creatinine m easurement (mass/volume)on 12-02-2021 Creatinine [Mass/Vol] 1.60 mg/dL 0.70-1.30 [facility] Work Phone: Comment on above: The validity of the calculated GFR & GFRAA in patients over 70 years has not been determined. Clinical correlation is essential. Serum or plasma urea nitroge n measurement (mass/volume)on 12-02-2021 Urea nitrogen [Mass/Vol] 15 mg/dL -18 [facility] Work Phone: Thin prep Papanicolaou smear with manual screeningon 12-02-2021 Thin prep Papanicolaou smear with manual screening 7 - [facility] Work Phone: [phone] BMPon 03-19-2021 Anion gap [Moles/Vol] 10 mmol/L Normal 5-16 [facility] [place] Comment on above: Order Comment: Eulalio s: M Performed By: #### L 500.54213, L500.09507, L500.08542, L500.94024 #### [facility] [place] [address] Calcium [Mass/Vol] 10.3 mg/dL Normal 8.5-10.5 [facility] Comment on above: Order Comment: Campu s: M Result Comment: NOTE NEW NORMAL RANGE DUE TO REAGENT CHANGE Performed By: #### L 500.66800, L500.79325, L500.24437, L500.76756 #### [facility] [address] [place] [address] Chloride [Moles/Vol] 109 mmol/L High 98-107 [facility] Comment on above: Order Comment: Campu s: M Performed By: #### L 500.62287, L500.07975, L500.31688, L500.43241 #### [facility] [address] [place] [address] CO2 [Moles/Vol] 23.0 mmol/L Normal 21-32 [facility] Comment on above: Order Comment: Campu s: M Performed By: #### L 500.87224, L500.25970, L500.05157, L500.23554 #### [facility] [place] [address] Creatinine [Mass/Vol] 0.85 mg/dL Normal 0.5-1.4 [facility] Comment on above: Order Comment: Campu s: M Result Comment: NOTE NEW NORMAL RANGE DUE TO REAGENT CHANGE Patients receiving either N-Acetylcysteine (NAC) or Metamizole prior to venipuncture, may have falsely depressed results. Performed By: #### L 500.35419, L500.01031, L500.85137, L500.57530 #### [facility] [place] [address] Glucose [Mass/Vol] 94 mg/dL Normal 70-100 [facility] Comment on above: Order Comment: Campu s: M Result Comment: 70-1 00- Normal Fasting; 100-125 Impaired Fasting; greater than 126 on more than one result- Diabetes. ADA guidelines. Results may be falsely elevated after the administration of Sulfapyridine. Results may be falsely depressed after the administration of Sulfasalazine. Performed By: #### L 500.71836, L500.65563, L500.47756, L500.13364 #### [facility] [address] [place] [address] Potassium [Moles/Vol] 4.1 mmol/L Normal 3.5-5.1 [facility] Comment on above: Order Comment: Campu s: M Result Comment: Slig ht Hemolysis, Result may be affected. Performed By: #### L 500.78586, L500.64545, L500.48786, L500.33418 #### [facility] [address] [place] [address] Sodium [Moles/Vol] 142 mmol/L Normal 136-145 [facility] Comment on above: Order Comment: Campu s: M Performed By: #### L 500.09651, L500.41415, L500.00536, L500.19365 #### [facility] [address] [place] [address] Urea nitrogen [Mass/Vol] 12 mg/dL Normal 7-26 [facility] Comment on above: Order Comment: Campu s: M Performed By: #### L 500.03014, L500.92197, L500.62787, L500.81453 #### [facility] [address] [place] [address] Urea nitrogen/Creatinine [Mass ratio] 14 mg/mg Low 15-24 [facility] Comment on above: Order Comment: Campu s: M Performed By: #### L 500.16458, L500.80853, L500.02345, L500.21130 #### [facility] [address] [place] [address] CBC W/DIFFon 03-19-2021 BASO ABS 0.10 K/CU MM Normal 0-0.2 [facility] Comment on above: Order Comment: Campu s: M Performed By: #### L 200.81572 ####[facility] [id number] [place], [place] [address]Ai# [phone] Basophils/100 WBC (Bld) 1.1 % Normal 0-2 M [facility] Comment on above: Order Comment: Campu s: M Performed By: #### L 200.91178 ####[facility] [id number] [place], [place] [address]Ph# [phone] EOS ABS 0.10 K/CU MM Normal 0-0.5 [facility] Comment on above: Order Comment: Campu s: M Performed By: #### L 200.17859 ####[facility] [id number] [place], [place] [address]Ph# [phone] Eosinophils/100 WBC (Bld) 1.2 % Normal 0-5 [facility] Comment on above: Order Comment: Campu s: M Performed By: #### L 200.48376 ####[address] [address]Sq# [phone] Erythrocyte distribution width (RBC) [Ratio] 12.4 % Normal 11-14.5 [facility] Comment on above: Order Comment: Campu s: M Performed By: #### L 200.17365 ####[facility] [id number] [place], [place] [address]Ph# [phone] Hematocrit (Bld) [Volume fraction] 48.9 % Normal 41.0-53.0 [facility] Comment on above: Order Comment: Campu s: M Performed By: #### L 200.60385 ####[facility] [id number] [place], [place] [address]Ph# [phone] Hemoglobin (Bld) [Mass/Vol] 17.6 g/dL High 13.5-17.5 [facility] Comment on above: Order Comment: Campu s: M Performed By: #### L 200.27069 ####[facility] [id number] [place], [place] [address]La# [phone] IMMATR GRAN ABS 0.10 K/CU MM Normal Less than 2 [facility] Comment on above: Order Comment: Campu s: M Performed By: #### L 200.80585 ####[facility] [id number] [place], [place] [address]Ph# [phone] IMMATURE GRAN % 1.0 % Normal Less than 2 [facility] Comment on above: Order Comment: Campu s: M Performed By: #### L 200.73488 ####[place] [address]Ph# [phone] LYMPH ABS 3.40 K/CU MM Normal 0.9-4.4 [facility] Comment on above: Order Comment: Campu s: M Performed By: #### L 200.88541 ####[facility] [id number] [place], [place] [address]Ph# [phone] Lymphocytes/100 WBC (Bld) 46.3 % High 20-40 [facility] Comment on above: Order Comment: Campu s: M Performed By: #### L 200.92530 ####[facility] [id number] [place], [place] [address]Ph# [phone] MCHC (RBC) [Mass/Vol] 36.0 g/dL Normal 32.0-36.0 [facility] [place] Comment on above: Order Comment: Campu s: M Performed By: #### L 200.78461 ####[facility] [id number] [place] [address]Gy# [phone] MCV (RBC) [Entitic vol] 97.2 fL Normal 80.0-99.0 [facility] Comment on above: Order Comment: Campu s: M Performed By: #### L 200.91904 ####[facility] [id number] [place], [place] [address]Mr# [phone] MONO ABS 0.50 K/CU MM Normal 0.1-1.1 [facility] Comment on above: Order Comment: Campu s: M Performed By: #### L 200.58063 ####[facility] [id number] [place] [address]Xg# [phone] Monocytes/100 WBC (Bld) 7.3 % Normal 2-10 M [facility] Comment on above: Order Comment: Campu s: M Performed By: #### L 200.14495 ####[place] [address]Ph# [phone] NEUTROPHIL ABS 3.10 K/CU MM Normal 2.0-8.3 [facility] Comment on above: Order Comment: Campu s: M Performed By: #### L 200.88875 ####[facility] [id number] [place] [address]Xf# [phone] Neutrophils/100 WBC (Bld) 43.1 % Low 45-75 [facility] Comment on [facility]: Order Comment: Campu s: M Performed By: #### L 200.96219 ####[facility] [id number] [place] [address]Qi# [phone] Nucleated RBC/100 WBC (Bld) [Ratio] 0.0 % Normal Less than 1 [facility] Comment on above: Order Comment: Campu s: M Performed By: #### L 200.35664 ####[facility] [id number] [place] [address]Ov# [phone] Platelet mean volume (Bld) [Entitic vol] 12.1 fL Normal 9.4-12.4 [facility] Comment on above: Order Comment: Campu s: M Performed By: #### L 200.39673 ####[facility] [id number] [place], [place] [address]Ph# [phone] PLT 171 K/CU MM Normal 150-450 [facility] Comment on above: Order Comment: Campu s: M Performed By: #### L 200.03778 ####[facility] [id number] [place], [place] [address]Ti# [phone] RBC 5.03 M/CU MM Normal 4.50-6.00 [facility] Comment on above: Order Comment: Campu s: M Performed By: #### L 200.64666 ####[facility] [id number] [place], [place] [address]Dq# [phone] WBC 7.2 K/CUMM Normal 4.5-11.0 [facility] Comment on above: Order Comment: Campu s: M Performed By: #### L 200.03333 ####[facility] [id number] [place], [place] [address]Az# [phone] CT [facility]BD[facility] ABD/PEL W IV CONTRAST ONLY [...] soft tissues:Unremarkable. The abdominal wall is intact [employer] Operator film:No additional abnormality IMPRESSION: No acute abnormality Hepatic steatosis This report was electronically signed by Mandeep Colmenares MD 03/19/2021 1:08 PM Reported By: MANDEEP COLMENARES M.D. Signed By: MANDEEP COLMENARES M.D. [facility] 03-19-2021 EMERGENCY PHYSICIAN REPORT This is a preliminary report only, as the practitioner review and authentication has not occurred. [facility] ER PHYSICIAN ASSESSMENT RECORDS : FlexChartData Event Time: 03/19/2021 11:15 Status: Signed [facility] Andrew Mclean [[id number]] Attending Physician 41 / M / 1980 Chart (V2b) Chart created at 03/19/2021 11:08 by Bryan Schuster Chart closed at 03/19/2021 13:58 Entry in Emergency Department at 03/19/2021 07:41, departure at 03/19/2021 14:06 Patient Name: Andrew Mclaen Record Number: [id number] Date: 03/19/2021 11:08 Entered Department at: 03/19/2021 [...] not have any symptoms throughout the day [facility] PATIENT NAME: ANDREW MCLEAN [facility] Dr. Wagner MEDICAL REC #: [id number] [place] [address] EMERGENCY DEPARTMENT REPORT EMERGENCY DEPARTMENT PHYSICIAN yesterday, [...] 4.1 BUN/CREA: 14; CALCIUM TOTAL: 10.3 Mg/Dl [facility] MED[facility] REC #: [id number] [place] [address] EMERGENCY DEPARTMENT REPORT EMERGENCY DEPARTMENT PHYSICIAN CBC [...] SGOT (AST): 100 U/L; SGPT (ALT): 259 [facility] PATIENT NAME: ANDREW MCLEAN [facility] Dr. [place] MEDICAL REC #: [id number] [place] [address] EMERGENCY DEPARTMENT REPORT EMERGENCY DEPARTMENT PHYSICIAN U/L; TP: 7.5 Gm/Dl Imaging Study Obtained: CT ABD/PEL W IV CONTRAST ONLY Imaging Study Obtained: CT ABD/PEL W IV (more content not included)... [facility]21 IF AMER Greater than 60 Normal [facility] Comment on above: Order Comment: Eulalio ying: Gregory Performed By: #### L 500.50721, L500.16001, L500.83911, L500.90791 #### [facility] [address] [place] [address] IF non-AFR AMER Greater than 60 Normal [facility] Comment on above: Order Comment: Campu s: M Performed By: #### L 500.46271, L500.86220, L500.14068, L500.28059 #### [facility] [address] [place], [place] [address] LIPASEon 03-19-2021 Lipase [Catalytic activity/Vol] 36 U/L Normal 12-60 [facility] Comment on above: Order Comment: Campu s: M Result Comment: NOTE NEW NORMAL RANGE DUE TO REAGENT CHANGE Performed By: #### L 500.83969, L500.13673, L500.35557, L500.46681 #### [facility] [address] [place] [address] LIVERon 03-19-2021 Albumin [Mass/Vol] 4.5 g/dL Normal 3.2-5.0 [facility] Comment on above: Order Comment: Campu s: M Performed By: #### L 500.66229, L500.55187, L500.05482, L500.98814 #### [facility] [address] [place] [address] Albumin/Globulin [Mass ratio] 1.5 {ratio} Normal 0.8-2.0 [facility] Comment on above: Order Comment: Campu s: M Performed By: #### L 500.27183, L500.00666, L500.27752, L500.34602 #### [facility] [address] [place] [address] ALK PHOS 64 U/L Normal 45-117 [facility] Comment on above: Order Comment: Campu s: M Performed By: #### L 500.67551, L500.08996, L500.34932, L500.50370 #### [facility] [address] [place] [address] ALT [Catalytic activity/Vol] 259 U/L High 13-61 [facility] Comment on above: Order Comment: Campu s: M Result Comment: RESU LTS MAY BE FALSELY DEPRESSED AFTER THE ADMINISTRATION OF SULFASALAZINE AND/OR SULFAPYRIDINE. Performed By: #### L 500.91649, L500.81058, L500.35903, L500.39028 #### [facility] [address] [place] [address] AST [Catalytic activity/Vol] 100 U/L High 8-34 [facility] Comment on above: Order Comment: Campu s: M Result Comment: RESU LTS MAY BE FALSELY DEPRESSED AFTER THE ADMINISTRATION OF SULFASALAZINE AND/OR SULFAPYRIDINE. Performed By: #### L 500.40504, L500.59119, L500.81632, L500.24304 #### [facility] [address] [place] [address] BILI DIRECT 0.1 MG/DL Normal 0.00-0.36 [facility] Comment on above: Order Comment: Campu s: M Result Comment: NOTE NEW NORMAL RANGE DUE TO REAGENT CHANGE Performed By: #### L 500.11825, L500.28883, L500.72542, L500.54240 #### [facility] [address] [place] [address] BILI TOTAL 0.30 MG/DL Normal 0.2-1.0 [facility] Comment on above: Order Comment: Campu s: M Performed By: #### L 500.43580, L500.18706, L500.29957, L500.52380 #### [facility] [address] [place], [place] [address] Globulin (S) [Mass/Vol] 3.0 g/dL Normal 2.2-4.2 [facility] Comment on above: Order Comment: Campu s: M Performed By: #### L 500.62257, L500.00352, L500.07685, L500.86113 #### [facility] [address] [place] [address] Protein [Mass/Vol] 7.5 g/dL Normal 6.0-8.5 [facility] Comment on above: Order Comment: Campu s: M Performed By: #### L 500.16730, L500.18802, L500.61760, L500.93667 #### [facility] [address] [place] [address] UA COMPLETEon 03-19-2021 Color (U) Yellow Normal [facility] Comment on above: Order Comment: Campu s: M Performed By: #### L 600.67044 ####[facility] [id number] [place] [address]Xe# [phone] Glucose (U) [Mass/Vol] Negative Normal NORMAL Me [facility] Comment on above: Order Comment: Campu s: M Performed By: #### L 600.60896 ####[facility] [id number] [place] [address] 06[address]Cq# [phone] UA APPEARANCE Clear Normal CLEAR [facility] Comment on above: Order Comment: Campu s: M Performed By: #### L 600.92985 ####[facility] [id number] [place], [place] [address]My# [phone] UA BILIRUBIN Negative Normal NEGATIVE [facility] Comment on above: Order Comment: Campu s: M Performed By: #### L 600.27169 ####[facility] [id number] [place], [place] [address]Ou# [phone] UA BLOOD Negative Normal NEGATIVE [facility] Comment on above: Order Comment: Campu s: M Performed By: #### L 600.85828 ####[facility] [id number] [place], [place] [address]Ch# [phone] UA KETONE [address] [facility] Comment on above: Order Comment: Campu s: M Performed By: #### L 600.21865 ####[facility] [id number] [place] [address]Hu# [phone] UA LK ESTERASE Negative Normal NEGATIVE [facility] Comment on above: Order Comment: Campu s: M Performed By: #### L 600.41849 ####[facility] [id number] [place] [address]Ol# [phone] UA NITRITE Negative Normal NEGATIVE [facility] Comment on above: Order Comment: Campu s: M Performed By: #### L 600.71954 ####[address] [address]Ii# [phone] UA PH 5.0 Normal 5-6 [facility] Comment on above: Order Comment: Campu s: M Performed By: #### L 600.50792 ####[address] [address]Cv# [phone] UA PROTEIN Negative Normal NEGATIVE [facility] Comment on above: Order Comment: Campu s: M Performed By: #### L 600.99373 ####[address] [address]Rb# [phone] UA SPEC GRAV 1.026 Normal 1.005-1.030 [facility] Comment on above: Order Comment: Campu s: M Performed By: #### L 600.68784 ####[facility] [id number] [place] [address]Kf# [phone] UA UROBILINOGEN Negative Normal NORMAL [facility] Comment on above: Order Comment: Campu s: M Performed By: #### L 600.18277 ####[facility] [id number] [place] [address]Uv# [phone] BMPon 10-29-2020 Anion gap [Moles/Vol] 5 mmol/L Normal 5-16 [facility] Comment on above: Order Comment: Campu s: M Performed By: #### L 500.26147, L500.11554 #### [facility] [address] [place] [id number] Calcium [Mass/Vol] 9.2 mg/dL Normal 8.5-10.5 [facility] Comment on above: Order Comment: Campu s: M Result Comment: NOTE NEW NORMAL RANGE DUE TO REAGENT CHANGE Performed By: #### L 500.57581, L500.18417 #### [facility] [address] [place] [address] Chloride [Moles/Vol] 111 mmol/L High 98-107 [facility] Comment on above: Order Comment: Campu s: M Performed By: #### L 500.93598, L500.18550 #### [facility] [address] [place] [address] CO2 [Moles/Vol] 24.0 mmol/L Normal 21-32 [facility] Comment on above: Order Comment: Campu s: M Performed By: #### L 500.54558, L500.11136 #### [facility] [address] [place] [address] Creatinine [Mass/Vol] 0.91 mg/dL Normal 0.5-1.4 [facility] Comment on above: Order Comment: Campu s: M Result Comment: NOTE NEW NORMAL RANGE DUE TO REAGENT CHANGE Patients receiving either N-Acetylcysteine (NAC) or Metamizole prior to venipuncture, may have falsely depressed results. Performed By: #### L 500.46466, L500.04442 #### [facility] [address] [place], [place] [address] Glucose [Mass/Vol] 131 mg/dL High 70-100 [facility] Comment on above: Order Comment: Campu s: M Result Comment: 70-1 00- Normal Fasting; 100-125 Impaired Fasting; greater than 126 on more than one result- Diabetes. ADA guidelines. Results may be falsely elevated after the administration of Sulfapyridine. Results may be falsely depressed after the administration of Sulfasalazine. Performed By: #### L 500.05540, L500.24486 #### [facility] [place] [address] Potassium [Moles/Vol] 3.8 mmol/L Normal 3.5-5.1 [facility] Comment on above: Order Comment: Campu s: M Result Comment: Slig ht Hemolysis, Result may be affected. Performed By: #### L 500.56195, L500.26143 #### [facility] [address] [place] [address] Sodium [Moles/Vol] 140 mmol/L Normal 136-145 [facility] Comment on above: Order Comment: Campu s: M Performed By: #### L 500.92948, L500.07568 #### [facility] [address] [place] [address] Urea nitrogen [Mass/Vol] 16 mg/dL Normal 7-26 [facility] Comment on above: Order Comment: Campu s: M Performed By: #### L 500.09891, L500.20930 #### [facility] [address] [place], [place] [address] Urea nitrogen/Creatinine [Mass ratio] 18 mg/mg Normal 15-24 [facility] Comment on above: Order Comment: Campu s: M Performed By: #### L 500.28273, L500.25990 #### [facility] [address] [place], [place] [address] CBC W/DIFFon 10-29-2020 BASO ABS 0.10 K/CU MM Normal 0-0.2 [facility] Comment on above: Order Comment: Campu s: M Performed By: #### L 200.18961 ####[facility] [id number] [place] [address]Ph# [phone] Basophils/100 WBC (Bld) 1.0 % Normal 0-2 [facility] Comment on above: Order Comment: Campu s: M Performed By: #### L 200.92491 ####[facility] [id number] [place] [address]Mv# [phone] EOS ABS 0.20 K/CU MM Normal 0-0.5 [facility] Comment on above: Order Comment: Campu s: M Performed By: #### L 200.00917 ####[facility] [id number] [place], [place] [address]Ph# [phone] Eosinophils/100 WBC (Bld) 2.8 % Normal 0-5 [facility] Comment on above: Order Comment: Campu s: M Performed By: #### L 200.59146 ####[address] [address]Ky# [phone] Erythrocyte distribution width (RBC) [Ratio] 12.1 % Normal 11-14.5 [facility] Comment on above: Order Comment: Campu s: M Performed By: #### L 200.88251 ####[facility] [id number] [place], [place] [address]Ph# [phone] Hematocrit (Bld) [Volume fraction] 47.2 % Normal 41.0-53.0 [facility] Comment on above: Order Comment: Campu s: M Performed By: #### L 200.39721 ####[facility] [id number] [place], [place] [address]Ph# [phone] Hemoglobin (Bld) [Mass/Vol] 17.0 g/dL Normal 13.5-17.5 [facility] Comment on above: Order Comment: Campu s: M Performed By: #### L 200.23119 ####[facility] [id number] [place] [address]Cx# [phone] IMMATR GRAN ABS 0.00 K/CU MM Normal Less than 2 [facility] Comment on above: Order Comment: Campu s: M Performed By: #### L 200.74735 ####[facility] [id number] [place], [place] [address]Yq# [phone] IMMATURE GRAN % 0.3 % Normal Less than 2 [facility] Comment on above: Order Comment: Campu s: M Performed By: #### L 200.91492 ####[address] [address]Sf# [phone] LYMPH ABS 4.00 K/CU MM Normal 0.9-4.4 [facility] Comment on above: Order Comment: Campu s: M Performed By: #### L 200.12645 ####[place] [address]Ph# [phone] Lymphocytes/100 WBC (Bld) 46.2 % High 20-40 [facility] Comment on above: Order Comment: Campu s: M Performed By: #### L 200.79021 ####[place] [address]Ph# [phone] MCHC (RBC) [Mass/Vol] 36.0 g/dL Normal 32.0-36.0 [facility] Comment on above: Order Comment: Campu s: M Performed By: #### L 200.22837 ####[facility] [id number] [place] [address] 410[address]Qx# [phone] MCV (RBC) [Entitic vol] 93.7 fL Normal 80.0-99.0 M [facility] Comment on above: Order Comment: Campu s: M Performed By: #### L 200.75831 ####[facility] [id number] [place] [address] 414[address]Qf# [phone] MONO ABS 0.60 K/CU MM Normal 0.1-1.1 [facility] Comment on above: Order Comment: Campu s: M Performed By: #### L 200.86147 ####[facility] [id number] [place], [place] [address]Co# [phone] Monocytes/100 WBC (Bld) 6.4 % Normal 2-10 M [facility] Comment on above: Order Comment: Campu s: M Performed By: #### L 200.79830 ####[facility] [id number] [place], [place] [address]Xt# [phone] NEUTROPHIL ABS 3.80 K/CU MM Normal 2.0-8.3 [facility] Comment on above: Order Comment: Campu s: M Performed By: #### L 200.72953 ####[facility] [id number] [place], [place] [address]Ph# [phone] Neutrophils/100 WBC (Bld) 43.3 % Low 45-75 [facility] Comment on above: Order Comment: Campu s: M Performed By: #### L 200.43988 ####[address] [address]Az# [phone] Nucleated RBC/100 WBC (Bld) [Ratio] 0.0 % Normal Less than 1 [facility] Comment on above: Order Comment: Campu s: M Performed By: #### L 200.45689 ####[facility] [id number] [place] [address] 145[address]Qf# [phone] Platelet mean volume (Bld) [Entitic vol] 11.3 fL Normal 9.4-12.4 [facility] Comment on above: Order Comment: Campu s: M Performed By: #### L 200.73143 ####[facility] [id number] [place] [address] 96[address]Cw# [phone] PLT 191 K/CU MM Normal 150-450 [facility] Comment on above: Order Comment: Campu s: M Performed By: #### L 200.68636 ####[facility] [id number] [place] [address] 149[address]Wk# [phone] RBC 5.04 M/CU MM Normal 4.50-6.00 [facility] Comment on above: Order Comment: Campu s: M Performed By: #### L 200.70737 ####[facility] [id number] [place], [place] [address]Ys# [phone] WBC 8.7 K/CUMM Normal 4.5-11.0 [facility] Comment on above: Order Comment: Eulalio ying: Gregory Performed By: #### L 200.83033 ####[facility] [id number] [place], [place] [address]Jv# [phone] EKGon 10-29-2020 Electrocardiogram Procedure Date and Time: [...] By:Viviana MARTÍNEZ M.D.FACC Ayala DDandT: 10/29/20258 TDandT: [facility] PATIENT NAME: ANDREW MCLEAN [facility] Dr. [place] MEDICAL REC #: [id number] [place] [address] ADMIT DATE: DISCHARGE DATE: 10/29/20 ATTENDING PHY: Manda Jackson MD ELECTROCARDIOGRAM REPORT CLB cc: [facility] PATIENT NAME: ANDREW MCLEAN [facility] Dr. Wagner MEDICAL REC #: [id number] [place] [address] ADMIT DATE: DISCHARGE DATE: 10/29/20 ATTENDING NAVARROY: Manda Jackson MD ELECTROCARDIOGRAM REPORT Normal [facility] Dionne 10-29-2020 EMERGENCY PHYSICIAN REPORT This is a preliminary report only, as the practitioner review and authentication has not occurred. Normal [facility] ER PHYSICIAN ASSESSMENT RECORDS : FlexChartData Event Time: 10/29/2020 05:45 Status: Signed [facility] Andrew Mclean [[id number]] Attending Physician 40 / M / 1980 Chart (V2b) Chart created at 10/29/2020 05:40 by Manda Jackson Chart closed at 10/29/2020 05:58 Entry in Emergency Department at 10/29/2020 02:56, departure at 10/29/2020 05:55 Patient Name: Andrew Mclean Record Number: [id number] Date: 10/29/2020 05:40 Entered Department at: 10/29/2020 [...] Systems. All other systems reviewed and negative.. [facility] PATIENT NAME: ANDREW MCLEAN [address] [facility] [address] [place] MEDICAL REC #: [id number] [place] [address] EMERGENCY DEPARTMENT REPORT EMERGENCY DEPARTMENT PHYSICIAN Past [...] %; RBC: 5.04 M/Cu Mm; RDW: 12.1 [facility] PATIENT NAME: ANDREW MCLEAN [facility] Dr. N.W. MEDICAL REC #: [id number] [place] [address] EMERGENCY DEPARTMENT REPORT EMERGENCY DEPARTMENT PHYSICIAN TROPONIN [...] signed by Leonel Ackerman 10/29/2020 3:45 AM [facility] PATIENT NAME: ANDREW MCLEAN [address] [facility] [address] Wagner MEDICAL REC #: [id number] [place] [id number] EMERGENCY DEPARTMENT REPORT EMERGENCY DEPARTMENT PHYSICIAN Reported [...] home. He is instructed to follow with [facility] (more content not included)... [facility]on 10-29-2020 IF AMER Greater than 60 Normal [facility] Comment on above: Order Comment: Asifu s: M Performed By: #### L 500.91135, L500.72888 ####[facility] [id number] [place], [place] [address]Qa# [phone] IF non-AFR AMER Greater than 60 Normal [facility] Comment on above: Order Comment: Asifu s: M Performed By: #### L 500.25908, L500.58097 ####[facility] [id number] [place], [place] [address]Sm# [phone] PORTABLE CHESTon 10-29-2020 PORTABLE CHEST EXAMINATION: CHEST [...] MD Signed By: LEONEL ACKERMAN MD Normal [facility] TROPONIN Ion 10-29-2020 TROPONIN I 3.0 pg/mL Normal 0-54 [facility] Comment on above: Order Comment: Eulalio s: M Result Comment: NOTE NEW NORMAL RANGE DUE TO REAGENT CHANGE This assay uses different antibodies than our current assay, and assays, even by the same elementary school music teacher may recognize different regions of the antibody and cannot be used interchangeably. Expect results of this assay to run higher than the previous assay. Performed By: #### L 550.70147 #### [facility] [address] [place] [address] .Auto Diffon 10-02-2020 Basophil, Absolute 0.10 10 3/mcL Normal 0.00-0.27 [facility]ul [facility] ([place]) Comment on above: Performed By: #### C BC, ADIFF, ANEU, CMP, GFR, LIP #### [address] [address] Basophils/100 WBC (Bld) 1.2 % Normal 0.0-2.5 A [facility] ([place]) Comment on above: Performed By: #### C BC, ADIFF, ANEU, CMP, GFR, LIP #### [address] [address] Eosinophil, Absolute 0.10 10 3/mcL Normal 0.00-0.65 A [facility] ([place]) Comment on above: Performed By: #### C BC, ADIFF, ANEU, CMP, GFR, LIP #### [address] [address] Eosinophils/100 WBC (Bld) 0.9 % Normal 0.0-6.0 [facility] ([place]) Comment on above: Performed By: #### C BC, ADIFF, ANEU, CMP, GFR, LIP #### [address] [address] Lymphocyte, Absolute 3.40 10 3/mcL Normal 0.90-4.32 A [facility] ([place]) Comment on above: Performed By: #### C BC, ADIFF, ANEU, CMP, GFR, LIP #### [address] [address] Lymphocytes/100 WBC (Bld) 39.0 % Normal 20.0-40.0 [facility] ([place]) Comment on above: Performed By: #### C BC, ADIFF, ANEU, CMP, GFR, LIP #### [address] [address] Monocyte, Absolute 0.50 10 3/mcL Normal 0.09-1.40 [facility] ([place]) Comment on above: Performed By: #### C BC, ADIFF, ANEU, CMP, GFR, LIP #### [address] [address] Monocytes/100 WBC (Bld) 5.9 % Normal 2.0-13.0 A [facility] ([place]) Comment on above: Performed By: #### C BC, ADIFF, ANEU, CMP, GFR, LIP #### [address] [address] Neutrophils/100 WBC (Bld) 53.0 % Normal 50.0-75.0 [facility] ([place]) Comment on above: Performed By: #### C BC, ADIFF, ANEU, CMP, GFR, LIP #### [address] [address] .GFRon 10-02-2020 GFR >60 Normal [facility] ([place]) Comment on above: Result Comment: GFR Population [...] BC, ADIFF, ANEU, CMP, GFR, LIP #### [address] [address] GFR Non- >60 Normal [facility] ([place]) Comment on above: Result Comment: GFR Population [...] BC, ADIFF, ANEU, CMP, GFR, LIP #### [address] [address] .NEUABSon 10-02-2020 Neutrophil, Absolute 4.60 10 3/mcL Normal 2.25-8.10 A [facility] ([place]) Comment on above: Performed By: #### C BC, ADIFF, ANEU, CMP, GFR, LIP #### [place] [id number] CBCon 10-02-2020 Erythrocyte distribution width (RBC) [Ratio] 13.4 % Normal 11.5-15.5 [facility] ([place]) Comment on above: Performed By: #### C BC, ADIFF, ANEU, CMP, GFR, LIP #### [place] [address] Hematocrit (Bld) [Volume fraction] 52.8 % High 40.0-52.0 [facility] ([place]) Comment on above: Performed By: #### C BC, ADIFF, ANEU, CMP, GFR, LIP #### [place] [address] Hgb 18.5 G/dL High 13.0-17.5 [facility] ([place]) Comment on above: Performed By: #### C BC, ADIFF, ANEU, CMP, GFR, LIP #### [place] [address] MCH (RBC) [Entitic mass] 33.9 pg High 27.0-33.0 [facility] ([place]) Comment on above: Performed By: #### C BC, ADIFF, ANEU, CMP, GFR, LIP #### [place] [address] MCHC 35.0 G/dL Normal 32.0-36.0 [facility] ([place]) Comment on above: Performed By: #### C BC, ADIFF, ANEU, CMP, GFR, LIP #### [place] [address] MCV (RBC) [Entitic vol] 96.8 fL Normal 81.0-100.0 A [facility] ([place]) Comment on above: Performed By: #### C BC, ADIFF, ANEU, CMP, GFR, LIP #### [place] [address] Platelet 207 10 3/mcL Normal 150-450 [facility] ([place]) Comment on above: Performed By: #### C BC, ADIFF, ANEU, CMP, GFR, LIP #### [address] [address] Platelet mean volume (Bld) [Entitic vol] 9.6 fL Normal 6.4-10.5 [facility] ([place]) Comment on above: Performed By: #### C BC, ADIFF, ANEU, CMP, GFR, LIP #### [place] [id number] RBC 5.46 10 6/mcL Normal 4.50-6.00 [facility] ([place]) Comment on above: Performed By: #### C BC, ADIFF, ANEU, CMP, GFR, LIP #### [place] [id number] WBC 8.70 10 3/mcL Normal 4.50-10.80 [facility] ([place]) Comment on above: Performed By: #### C BC, ADIFF, ANEU, CMP, GFR, LIP #### [place] [address] CMPon 10-02-2020 Albumin Level 4.1 G/dL Normal 3.2-4.8 [facility] ([place]) Comment on above: Performed By: #### C BC, ADIFF, ANEU, CMP, GFR, LIP #### [place] [address] Albumin/Globulin [Mass ratio] 1.1 {ratio} Normal 0.9-1.6 [facility] ([place]) Comment on above: Performed By: #### C BC, ADIFF, ANEU, CMP, GFR, LIP #### [place] [address] ALP [Catalytic activity/Vol] 65 U/L Normal 38-126 [facility] ([place]) Comment on above: Performed By: #### C BC, ADIFF, ANEU, CMP, GFR, LIP #### [address] [address] ALT [Catalytic activity/Vol] 89 U/L High 12-55 [facility] ([place]) Comment on above: Performed By: #### C BC, ADIFF, ANEU, CMP, GFR, LIP #### [address] [address] AST [Catalytic activity/Vol] 31 U/L Normal 8-34 [facility] ([place]) Comment on above: Performed By: #### C BC, ADIFF, ANEU, CMP, GFR, LIP #### [address] [address] Bili Total 0.4 mg/dL Normal 0.2-1.2 [facility] ([place]) Comment on above: Result Comment: Use of this assay is not recommended for patients undergoing treatment with eltrombopag due to the potential for falsely elevated results. Performed By: #### C BC, ADIFF, ANEU, CMP, GFR, LIP #### [place] [id number] BUN/Creatinine Ratio 16.0 ratio Normal 10.0-22.0 [facility] ([place]) Comment on above: Performed By: #### C BC, ADIFF, ANEU, CMP, GFR, LIP #### [address] [address] Calcium [Mass/Vol] 9.1 mg/dL Normal 8.4-10.1 [facility] ([place]) Comment on above: Result Comment: No te - New Reference Range in effect 19 Performed By: #### C BC, ADIFF, ANEU, CMP, GFR, LIP #### [address] [address] Chloride [Moles/Vol] 109 mmol/L Normal 98-110 [facility] ([place]) Comment on above: Performed By: #### C BC, ADIFF, ANEU, CMP, GFR, LIP #### [address] [address] CO2 [Moles/Vol] 25 mmol/L Normal 22-32 [facility] ([place]) Comment on above: Performed By: #### C BC, ADIFF, ANEU, CMP, GFR, LIP #### [address] [address] Creatinine [Mass/Vol] 0.94 mg/dL Normal 0.60-1.40 [facility] ([place]) Comment on above: Performed By: #### C BC, ADIFF, ANEU, CMP, GFR, LIP #### [address] [address] Electrolyte Balance 5.0 mEq/L Normal 4.0-15.0 [facility] ([place]) Comment on above: Performed By: #### C BC, ADIFF, ANEU, CMP, GFR, LIP #### [address] [id number] Globulin 3.7 G/dL Normal 1.5-3.8 [facility] ([place]) Comment on above: Performed By: #### C BC, ADIFF, ANEU, CMP, GFR, LIP #### [place] [id number] Glucose [Mass/Vol] 97 mg/dL Normal 70-110 [facility] ([place]) Comment on above: Performed By: #### C BC, ADIFF, ANEU, CMP, GFR, LIP #### [place] [phone] Potassium [Moles/Vol] 3.9 mmol/L Normal 3.5-5.0 [facility] ([place]) Comment on above: Performed By: #### C BC, ADIFF, ANEU, CMP, GFR, LIP #### [address] [id number] Sodium [Moles/Vol] 139 mmol/L Normal 136-145 [facility] ([place]) Comment on above: Performed By: #### C BC, ADIFF, ANEU, CMP, GFR, LIP #### [place] [id number] Total Protein 7.8 G/dL Normal 6.0-8.5 [facility] ([place]) Comment on above: Result Comment: No te - New Reference Range in effect 19 Performed By: #### C BC, ADIFF, ANEU, CMP, GFR, LIP #### [facility] [address] [place] [id number] Urea nitrogen [Mass/Vol] 15.0 mg/dL Normal 8.0-22.0 [facility] ([place]) Comment on above: Performed By: #### C BC, ADIFF, ANEU, CMP, GFR, LIP #### [facility] [address] [place] [id number] [address] ABD/PELVIS W/ IV CONTRAST ONLYon 10-02-2020 [...] resident's findings and interpretation. Interpreted By: Tomás Townesnd MD Preliminary Report By: Kristan Sands DO Electronically Signed By: Tomás Townsend MD Dictated Date: 10/02/2020 8:16:07 PM Prelim Date: 10/02/2020 8:23:54 PM Sign Date: 10/02/2020 8:42:53 PM Ordering Provider:Sharad Hope [facility] ([place]) LIPon 10-02-2020 Lipase Level 50 U/L Normal - [facility] ([place]) Comment on above: Result Comment: No te - New Reference Range in effect 19 Performed By: #### C BC, ADIFF, ANEU, CMP, GFR, LIP #### [place] [id number] [place] [id number] US ABDOMEN LIMITEDon 021 US ABDOMEN LIMITED [...] Date: 10/02/2020 7:14:57 PM Ordering Provider:Leann Fairchild [facility] ([place]) Dionne 08-30-2020 EMERGENCY PHYSICIAN REPORT This is a preliminary report only, as the practitioner review and authentication has not occurred. [facility] ER PHYSICIAN ASSESSMENT RECORDS : FlexChartData Event Time: 08/30/2020 13:20 BJKA Status: Signed [facility] Andrew Mclean [[id number]] Mid-Level Chart (V2b) 40 / M / 1980 Chart created at 08/30/2020 13:12 by Denver Osman Chart closed at 08/30/2020 13:17 Entry in Emergency Department at 08/30/2020 10:39, departure at 08/30/2020 14:18 Patient Name: Andrew Mclean Record Number: [id number] Date: 08/30/2020 13:12 Entered Department at: 08/30/2020 [...] in nurses note. Medications: Reviewed RN Note. [facility] PATIENT NAME: ANDREW MCLEAN [address] [facility] [address] MEDICAL REC #: [id number] [place] [address] EMERGENCY DEPARTMENT REPORT EMERGENCY DEPARTMENT PHYSICIAN Allergies: [...] were no prior studies available for comparison. [facility] PATIENT NAME: ANDREW MCLEAN [facility] [address] MEDICAL REC #: [id number] [place] [address] EMERGENCY DEPARTMENT REPORT EMERGENCY DEPARTMENT PHYSICIAN The femoral head is in good position. No fractures are seen. There are mild degenerative changes. IMPRESSION: Mild degenerative change. No acute abnormalities. ---- Electronic Signature on File ---- Signed By: Sharad Cohn MD FACR [email or web address] Dictated: 08/30/2020 12:29 PM Signed: 08/30/2020 12:30 PM Reported By: SHARAD COHN M.D. Radiology: Interpreted by Radiologist. Medical Decision Making Vitals are noted. Patient is afebrile. Blood pressure is 174/104 this could be pain related. Patient was medicated with 1 Chrisman and muscle relaxer. Heart rate is 75. [...] pressure. He will be referred to the [facility] musculoskeletal clinic. Clinical Impression: [facility] PATIENT NAME: ANDREW MCLEAN [address] [facility] [address] [place] MEDICAL REC #: [id number] [place] [address] EMERGENCY DEPARTMENT REPORT EMERGENCY DEPARTMENT PHYSICIAN 1. Subacute right hip pain 2. Elevated blood pressure Disposition: Discharged . Condition: Good Electronically sign (more content not included)... Normal [facility] HIP COMP 2-3 VIEWS RIGHTon 0 [...] COHN M.D. Signed By: SHARAD COHN M.D. [facility] Vital Signs Date Time Vital Sign Value Performing Clinician Facility 01-11-2025 19:00-0400 Body temperature 98.1 [degF] No Primary Care Physician [facility] 01-11-2025 19:00-0400 Diastolic blood pressure 92 mm[Hg] No Primary Care Physician [facility] 01-11-2025 19:00-0400 Heart rate 76 /min No Primary Care Physician [facility] 01-11-2025 19:00-0400 Respiratory rate 18 /min No Primary Care Physician [facility] 01-11-2025 19:00-0400 SaO2% (BldA) [Mass fraction] 98 % No Primary Care Physician [facility] 01-11-2025 19:00-0400 Systolic blood pressure 138 mm[Hg] No Primary Care Physician [facility] 01-11-2025 17:14-0400 Body height 175.26 cm No Primary Care Physician [facility] 01-05-2025 08:05-0400 Body height 175.26 cm No Primary Care Physician [facility] 01-05-2025 08:05-0400 Body mass index (BMI) [Ratio] 29.8 kg/m2 No Primary Care Physician [facility] 01-05-2025 08:05-0400 Body weight 91.62 kg No Primary Care Physician [facility] 11-25-2024 16:24-0400 Body temperature 98 [degF] No Primary Care Physician [facility] 11-25-2024 16:24-0400 Diastolic blood pressure 87 mm[Hg] No Primary Care Physician [facility] 11-25-2024 16:24-0400 Heart rate 73 /min No Primary Care Physician [facility] 11-25-2024 16:24-0400 Respiratory rate 18 /min No Primary Care Physician [facility] 11-25-2024 16:24-0400 SaO2% (BldA) [Mass fraction] 98 % No Primary Care Physician [facility] 11-25-2024 16:24-0400 Systolic blood pressure 156 mm[Hg] No Primary Care Physician [facility] 11-25-2024 14:25-0400 Body height 175.26 cm No Primary Care Physician [facility] 11-25-2024 14:25-0400 Body mass index (BMI) [Ratio] 27.8 kg/m2 No Primary Care Physician [facility] 11-25-2024 14:25-0400 Body weight 85.6 kg No Primary Care Physician [facility] 10-31-2024 03:07-0400 Body temperature 97.8 [degF] No Primary Care Physician [facility] 10-31-2024 03:07-0400 Diastolic blood pressure 81 mm[Hg] No Primary Care Physician [facility] 10-31-2024 03:07-0400 Heart rate 69 /min No Primary Care Physician [facility] 10-31-2024 03:07-0400 Respiratory rate 18 /min No Primary Care Physician [facility] 10-31-2024 03:07-0400 SaO2% (BldA) [Mass fraction] 99 % No Primary Care Physician [facility] 10-31-2024 03:07-0400 Systolic blood pressure 121 mm[Hg] No Primary Care Physician [facility] 10-30-2024 22:55-0400 Body height 175.26 cm No Primary Care Physician [facility] 10-30-2024 22:55-0400 Body mass index (BMI) [Ratio] 27.1 kg/m2 No Primary Care Physician [facility] 10-30-2024 22:55-0400 Body weight 83.46 kg No Primary Care Physician [facility] 10-15-2024 15:18-0400 Body temperature 98 [degF] No Primary Care Physician [facility] 10-15-2024 15:18-0400 Diastolic blood pressure 97 mm[Hg] No Primary Care Physician [facility] 10-15-2024 15:18-0400 Heart rate 78 /min No Primary Care Physician [facility] 10-15-2024 15:18-0400 Respiratory rate 16 /min No Primary Care Physician [facility] 10-15-2024 15:18-0400 SaO2% (BldA) [Mass fraction] 99 % No Primary Care Physician [facility] 10-15-2024 15:18-0400 Systolic blood pressure 137 mm[Hg] No Primary Care Physician [facility] 10-15-2024 12:05-0400 Body height 175.26 cm No Primary Care Physician [facility] 10-15-2024 12:05-0400 Body mass index (BMI) [Ratio] 27.2 kg/m2 No Primary Care Physician [facility] 10-15-2024 12:05-0400 Body weight 83.64 kg No Primary Care Physician [facility] 08-28-2023 18:05-0400 Body height 175.3 cm Ngoc Oliveros DO Work Phone: [facility] 08-28-2023 18:04-0400 Body temperature 98.01 [degF] Ngoc Oliveros DO Work Phone: [facility] 08-28-2023 18:04-0400 Diastolic blood pressure 96 mm[Hg] Ngoc Oliveros DO Work Phone: [facility] 08-28-2023 18:04-0400 Heart rate 100 /min Ngoc Oliveros DO Work Phone: [facility] 08-28-2023 18:04-0400 Respiratory rate 18 /min Ngoc Oliveros DO Work Phone: [facility] 08-28-2023 18:04-0400 SaO2% (BldA) [Mass fraction] 99 % Ngoc Oliveros DO Work Phone: [facility] 08-28-2023 18:04-0400 Systolic blood pressure 126 mm[Hg] Ngoc Oliveros DO Work Phone: [facility] 07-26-2023 13:27-0400 Body temperature 98.4 [degF] [facility] 07-26-2023 13:27-0400 Diastolic blood pressure 85 mm[Hg] [facility] 07-26-2023 13:27-0400 Heart rate 74 /min [facility] 07-26-2023 13:27-0400 Respiratory rate 16 /min [facility] 07-26-2023 13:27-0400 SaO2% (BldA) [Mass fraction] 100 % [facility] 07-26-2023 13:27-0400 Systolic blood pressure 121 mm[Hg] [facility] 07-26-2023 11:27-0400 Body height 175.26 cm [facility] 07-26-2023 11:27-0400 Body mass index (BMI) [Ratio] 27.5 kg/m2 [facility] 07-26-2023 11:27-0400 Body weight 84.62 kg [facility] 04-16-2023 11:05-0500 SaO2% (BldA) [Mass fraction] 95 % [facility] 04-16-2023 09:36-0500 Heart rate 96 /min [facility] 04-16-2023 09:36-0500 Respiratory rate 18 /min [facility] 04-16-2023 08:27-0500 Diastolic blood pressure 98 mm[Hg] [facility] 04-16-2023 08:27-0500 Systolic blood pressure 150 mm[Hg] [facility] 04-16-2023 06:51-0500 Body height 175.26 cm [facility] 04-16-2023 06:51-0500 Body mass index (BMI) [Ratio] 27.3 kg/m2 [facility] 04-16-2023 06:51-0500 Body temperature 97.2 [degF] [facility] 04-16-2023 06:51-0500 Body weight 84.1 kg [facility] 04-10-2023 10:56-0500 Respiratory rate 18 /min [facility] 04-10-2023 08:58-0500 Body mass index (BMI) [Ratio] 27.2 kg/m2 [facility] 04-10-2023 08:58-0500 Body temperature 98.6 [degF] [facility] 04-10-2023 08:58-0500 Body weight 83.7 kg [facility] 04-10-2023 08:58-0500 Diastolic blood pressure 82 mm[Hg] [facility] 04-10-2023 08:58-0500 Heart rate 95 /min [facility] 04-10-2023 08:58-0500 SaO2% (BldA) [Mass fraction] 99 % [facility] 04-10-2023 08:58-0500 Systolic blood pressure 128 mm[Hg] [facility] 03-03-2022 19:50-0500 Diastolic blood pressure 119 mm[Hg] Dr. Ena Holloway Work Phone: [facility] Work Phone: 03-03-2022 19:50-0500 Heart rate 101 /min Dr. Ena Holloway Work Phone: [facility] Work Phone: 03-03-2022 19:50-0500 Systolic blood pressure 154 mm[Hg] Dr. Ena Holloway Work Phone: [facility] Work Phone: 03-03-2022 19:26-0500 Body height 175.[address] Ena Holloway Work Phone: [facility] Work Phone: 03-03-2022 19:26-0500 Body mass index (BMI) [Ratio] 28.8 kg/m2 Dr. Ena Holloway Work Phone: [facility] Work Phone: 03-03-2022 19:26-0500 Body temperature 97.9 [degF] Dr. Ena Holloway Work Phone: [facility] Work Phone: 03-03-2022 19:26-0500 Body weight 88.[address] Ena Holloway Work Phone: [facility] Work Phone: 03-03-2022 19:26-0500 Respiratory rate 18 /min Dr. Ena Holloway Work Phone: [facility] Work Phone: 03-03-2022 19:26-0500 SaO2% (BldA) [Mass fraction] 96 % Dr. Ena Holloway Work Phone: [facility] Work Phone: 02-28-2022 08:16-0500 Body height 177.[address] Ena Holloway Work Phone: [facility] Work Phone: 02-28-2022 08:16-0500 Body mass index (BMI) [Ratio] 30.1 kg/m2 Dr. Ena Holloway Work Phone: [facility] Work Phone: 02-28-2022 08:16-0500 Body temperature 97.5 [degF] Dr. Ena Holloway Work Phone: [facility] Work Phone: 02-28-2022 08:16-0500 Body weight 95.[address] Ena Holloway Work Phone: [facility] Work Phone: 02-28-2022 08:16-0500 Diastolic blood pressure 106 mm[Hg] Dr. Ena Holloway Work Phone: [facility] Work Phone: 02-28-2022 08:16-0500 Heart rate 109 /min Dr. Ena Holloway Work Phone: [facility] Work Phone: 02-28-2022 08:16-0500 Respiratory rate 18 /min Dr. Ena Holloway Work Phone: [facility] Work Phone: 02-28-2022 08:16-0500 SaO2% (BldA) [Mass fraction] 99 % Dr. Ena Holloway Work Phone: [facility] Work Phone: 02-28-2022 08:16-0500 Systolic blood pressure 147 mm[Hg] Dr. Ena Holloway Work Phone: [facility] Work Phone: 01-07-2022 09:10-0400 Body temperature 98.8 [degF] Dr. Ena Holloway Work Phone: [facility] Work Phone: 01-07-2022 09:10-0400 Diastolic blood pressure 97 mm[Hg] Dr. Ena Holloway Work Phone: [facility] Work Phone: 01-07-2022 09:10-0400 Heart rate 63 /min Dr. Ena Holloway Work Phone: [facility] Work Phone: 01-07-2022 09:10-0400 Respiratory rate 14 /min Dr. Ena Holloway Work Phone: [facility] Work Phone: 01-07-2022 09:10-0400 SaO2% (BldA) [Mass fraction] 98 % Dr. Ena Holloway Work Phone: [facility] Work Phone: 01-07-2022 09:10-0400 Systolic blood pressure 133 mm[Hg] Dr. Ena Holloway Work Phone: [facility] Work Phone: 01-06-2022 10:31-0400 Body height 177.[address] Ena Holloway Work Phone: [facility] Work Phone: 01-06-2022 10:31-0400 Body weight 92.[address] Ena Holloawy Work Phone: [facility] Work Phone: 01-06-2022 09:20-0400 Body mass index (BMI) [Ratio] 29.2 kg/m2 Dr. Ena Holloway Work Phone: [facility] Work Phone: 01-06-2022 03:39-0400 Body temperature 98 [degF] Dr. Ena Cola Work Phone: [facility] Work Phone: 01-06-2022 03:39-0400 Diastolic blood pressure 99 mm[Hg] Dr. Ena Holloway Work Phone: [facility] Work Phone: 01-06-2022 03:39-0400 Heart rate 67 /min Dr. Ena Holloway Work Phone: [facility] Work Phone: 01-06-2022 03:39-0400 Respiratory rate 16 /min Dr. Ena Holloway Work Phone: [facility] Work Phone: 01-06-2022 03:39-0400 SaO2% (BldA) [Mass fraction] 98 % Dr. Ena Holloway Work Phone: [facility] Work Phone: 01-06-2022 03:39-0400 Systolic blood pressure 132 mm[Hg] Dr. Ena Holloway Work Phone: [facility] Work Phone: 01-06-2022 01:15-0400 Body height 177.[address] Ena Holloway Work Phone: [facility] Work Phone: 01-06-2022 01:15-0400 Body mass index (BMI) [Ratio] 41.5 kg/m2 Dr. Ena Holloway Work Phone: [facility] Work Phone: 01-06-2022 01:15-0400 Body weight 131.[address] nEa Holloway Work Phone: [facility] Work Phone: 01-03-2022 16:48-0400 SaO2% (BldA) [Mass fraction] 94 % Dr. Ena Holloway Work Phone: [facility] Work Phone: 01-03-2022 12:53-0400 Body temperature 98.1 [degF] Dr. Ena Holloway Work Phone: [facility] Work Phone: 01-03-2022 12:53-0400 Diastolic blood pressure 97 mm[Hg] Dr. Ena Holloway Work Phone: [facility] Work Phone: 01-03-2022 12:53-0400 Heart rate 55 /min Dr. Ena Holloway Work Phone: [facility] Work Phone: 01-03-2022 12:53-0400 Respiratory rate 18 /min Dr. Ena Holloway Work Phone: [facility] Work Phone: 01-03-2022 12:53-0400 Systolic blood pressure 128 mm[Hg] Dr. Ena Holloway Work Phone: [facility] Work Phone: 01-03-2022 09:29-0400 Body height 177.[address] Ena Holloway Work Phone: [facility] Work Phone: 01-03-2022 09:29-0400 Body mass index (BMI) [Ratio] 29.4 kg/m2 Dr. Ena Holloway Work Phone: [facility] Work Phone: 01-03-2022 09:29-0400 Body weight 92.[address] Ena Holloway Work Phone: [facility] Work Phone: 12-31-2021 21:21-0400 Body temperature 98 [degF] [facility] Work Phone: 12-31-2021 21:21-0400 Diastolic blood pressure 104 mm[Hg] [facility] Work Phone: 12-31-2021 21:21-0400 Heart rate 84 /min [facility] Work Phone: 12-31-2021 21:21-0400 Respiratory rate 16 /min [facility] Work Phone: 12-31-2021 21:21-0400 SaO2% (BldA) [Mass fraction] 95 % [facility] Work Phone: 12-31-2021 21:21-0400 Systolic blood pressure 141 mm[Hg] [facility] Work Phone: 12-31-2021 15:38-0400 Body height 177.8 cm [facility] Work Phone: 12-31-2021 15:38-0400 Body mass index (BMI) [Ratio] 30.3 kg/m2 [facility] Work Phone: 12-31-2021 15:38-0400 Body weight 95.8 kg [facility] Work Phone: 12-02-2021 10:41-0400 Diastolic blood pressure 105 mm[Hg] [facility] Work Phone: 12-02-2021 10:41-0400 Heart rate 98 /min [facility] Work Phone: 12-02-2021 10:41-0400 Respiratory rate 17 /min [facility] Work Phone: 12-02-2021 10:41-0400 SaO2% (BldA) [Mass fraction] 97 % [facility] Work Phone: 12-02-2021 10:41-0400 Systolic blood pressure 134 mm[Hg] [facility] Work Phone: 12-02-2021 09:51-0400 Body height 175.26 cm [facility] Work Phone: 12-02-2021 09:51-0400 Body mass index (BMI) [Ratio] 30.3 kg/m2 [facility] Work Phone: 12-02-2021 09:51-0400 Body temperature 97.8 [degF] [facility] Work Phone: 12-02-2021 09:51-0400 Body weight 93.2 kg [facility] Work Phone: 11-15-2021 17:56-0400 Body height 175.26 cm [facility] Work Phone: 11-15-2021 17:56-0400 Body mass index (BMI) [Ratio] 31.6 kg/m2 [facility] Work Phone: 11-15-2021 17:56-0400 Body temperature 96.3 [degF] [facility] Work Phone: 11-15-2021 17:56-0400 Body weight 97.1 kg [facility] Work Phone: 11-15-2021 17:56-0400 Diastolic blood pressure 131 mm[Hg] [facility] Work Phone: 11-15-2021 17:56-0400 Heart rate 95 /min [facility] Work Phone: 11-15-2021 17:56-0400 Respiratory rate 16 /min [facility] Work Phone: 11-15-2021 17:56-0400 SaO2% (BldA) [Mass fraction] 97 % [facility] Work Phone: 11-15-2021 17:56-0400 Systolic blood pressure 169 mm[Hg] [facility] Work Phone: 09-20-2021 07:50-0400 Diastolic blood pressure 72 mm[Hg] [facility] Work Phone: 09-20-2021 07:50-0400 Heart rate 71 /min [facility] Work Phone: 09-20-2021 07:50-0400 Respiratory rate 16 /min [facility] Work Phone: 09-20-2021 07:50-0400 SaO2% (BldA) [Mass fraction] 98 % [facility] Work Phone: 09-20-2021 07:50-0400 Systolic blood pressure 134 mm[Hg] [facility] Work Phone: 09-20-2021 06:16-0400 Body height 175.26 cm [facility] Work Phone: 09-20-2021 06:16-0400 Body mass index (BMI) [Ratio] 32.1 kg/m2 [facility] Work Phone: 09-20-2021 06:16-0400 Body temperature 97.9 [degF] [facility] Work Phone: 09-20-2021 06:16-0400 Body weight 98.7 kg [facility] Work Phone: Encounters Encounter Date Encounter Type Care Provider Facility Start: 01-18-2025 ambulatory [facility] Facility :[facility] Start: 01-17-2025 Encounter for other preprocedural examination Adan Villagran [facility] Start: 01-16-2025 End: 01-16-2025 ambulatory [facility] Facility:[facility] Start: 01-11-2025 End: 01-11-2025 Emergency department patient visit No Primary Care Physician -Emergency Department Work Phone: Start: 01-05-2025 End: 01-05-2025 Patient encounter procedure Maricel VITAL -[facility] Work Phone: Start: 01-05-2025 End: 01-05-2025 ambulatory No Primary Care Physician -[facility] Start: 12-23-2024 End: 12-23-2024 ambulatory No Primary Care Physician -[facility] Start: 12-23-2024 End: 12-23-2024 Patient encounter procedure Makeda Hawkins DATA REPORTING ANALYST-C -[facility] - [facility] Work Phone: Start: 12-23-2024 End: 12-23-2024 ambulatory [facility] Facility:[facility] Start: 12-02-2024 ambulatory [facility] Facility :[facility] Start: 11-25-2024 End: 11-25-2024 Emergency department patient visit No Primary Care Physician -Emergency Department Work Phone: Start: 11-07-2024 End: 11-07-2024 ambulatory No Primary Care Physician -[facility] Start: 11-07-2024 End: 11-07-2024 [facility] Work Phone: Start: 11-07-2024 End: 11-07-2024 ambulatory [facility] Facility:[facility] Start: 10-30-2024 End: 10-31-2024 Emergency department patient visit No Primary Care Physician -Emergency Department Work Phone: Start: 10-17-2024 End: 10-17-2024 Emergency department patient visit PRO QUINONES MD [facility] Start: 10-15-2024 End: 10-15-2024 Emergency department patient visit No Primary Care Physician -Emergency Department Work Phone: Start: 05-02-2024 End: 05-02-2024 Emergency department patient visit Rhett Tyler Facility:[facility] Start: 08-28-2023 End: 08-28-2023 Emergency department patient visit Ngoc Oliveros DO Work Phone: [facility] Start: 07-26-2023 End: 07-26-2023 Emergency department patient visit [facility] Work Phone: Start: 04-16-2023 End: 04-16-2023 Emergency department patient visit [facility] Work Phone: Start: 04-10-2023 End: 04-10-2023 Emergency department patient visit [facility] Work Phone: Start: 03-03-2022 End: 03-03-2022 Emergency department patient visit Dr. Ena Holloway Work Phone: [facility] Start: 02-28-2022 End: 02-28-2022 Emergency department patient visit Dr. Ena Holloway Work Phone: [facility] Start: 01-07-2022 Non-patient / Non-visit Dr. Nat Holloway Work Phone: [facility] Start: 01-06-2022 Non-patient / Non-visit Dr. Nat Holloway Work Phone: [facility] Start: 01-06-2022 End: 01-07-2022 Evaluation and management of inpatient Dr. Ena Holloway Work Phone: [facility] 3 Start: 01-03-2022 Non-patient / Non-visit Dr. Nat Holloway Work Phone: [facility] Start: 01-03-2022 Non-patient / Non-visit Dr. Nat Holloway Work Phone: [facility] Start: 01-02-2022 Non-patient / Non-visit Dr. Nat Holloway Work Phone: [facility] Start: 01-01-2022 Non-patient / Non-visit Dr. Nat Holloway Work Phone: [facility] Start: 01-01-2022 Non-patient / Non-visit Dr. Nat Holloway Work Phone: [facility] Start: 01-01-2022 End: 01-03-2022 Non-patient / Non-visit Dr. Ena Holloway Work Phone: [facility] Start: 12-31-2021 End: 09-30-2022 Evaluation and management of inpatient [facility] Start: 12-02-2021 End: 12-02-2021 Emergency department patient visit [facility] Start: 11-15-2021 End: 11-15-2021 Emergency department patient visit [facility] Start: 09-20-2021 End: 09-20-2021 Emergency department patient visit [facility] Procedures Date Procedure Procedure Detail [...] Date Care Activity Detail Author Start: 01-11-2025 [facility] Start: 01-05-2025 X-ray of cervical spine Cerv Spine 2 or 3 Views [facility] Start: 01-05-2025 XR Cervical spine 2 or 3 Views [facility] Start: 11-25-2024 [facility] Start: 10-31-2024 [facility] Start: 10-15-2024 [facility] Start: 10-15-2024 [facility] Start: 12-06-2023 Influenza vaccination INFLUENZA VACCINE (Season Ended) [facility] Start: 07-26-2023 [facility] Start: 04-16-2023 [facility] Start: 04-10-2023 [facility] Start: 12-05-2022 COVID-19 VACCINE ( season) COVID-19 VACCINE ( season) [facility] Start: 2022 Blood chemistry [facility] Work Phone: Start: 01-08-2022 Blood chemistry [facility] Work Phone: Start: 01-07-2022 Patient discharge [facility] Work Phone: Start: 01-06-2022 End: 01-07-2022 [facility] Work Phone: Start: 01-06-2022 Egd transoral biopsy single/multiple EGD BIOPSY SINGLE/MULTIPLE [facility] Work Phone: Start: 01-06-2022 Egd transoral control bleeding any method EGD CONTROL BLEEDING ANY [facility] Work Phone: Start: 01-06-2022 Catheterization of vein [facility] Work Phone: Start: 01-06-2022 Application of intermittent pneumatic compression device [facility] Work Phone: Start: 01-06-2022 Following clinical pathway protocol [facility] Work Phone: Start: 01-06-2022 Assessment of risk of venous thromboembolism [facility] Work Phone: Start: 01-06-2022 Insertion of catheter into peripheral vein [facility] Work Phone: Start: 01-06-2022 Oxygen therapy [facility] Work Phone: Start: 01-06-2022 Providing care according to standard [facility] Work Phone: Start: 01-06-2022 Referral to gastroenterology service [facility] Work Phone: Start: 01-06-2022 End: 01-06-2022 Verification routine [facility] Work Phone: Start: 01-06-2022 Admission procedure [facility] Work Phone: Start: 01-03-2022 Patient discharge [facility] Work Phone: Start: 01-01-2022 End: 01-02-2022 [facility] Work Phone: Start: 01-01-2022 Following clinical pathway protocol [facility] Work Phone: Start: 01-01-2022 End: 01-01-2022 Catheterization of vein [facility] Work Phone: Start: 01-01-2022 End: 01-01-2022 Notification of physician [facility] Work Phone: Start: 01-01-2022 Oxygen therapy [facility] Work Phone: Start: 12-31-2021 Ambulation without limitation [facility] Work Phone: Start: 12-31-2021 Assessment of risk of venous thromboembolism [facility] Work Phone: Start: 12-31-2021 Insertion of catheter into peripheral vein [facility] Work Phone: Start: 12-31-2021 Providing care according to standard [facility] Work Phone: Start: 12-31-2021 Referral to gastroenterology service [facility] Work Phone: Start: 12-31-2021 [facility] Work Phone: Start: 12-31-2021 Following clinical pathway protocol [facility] Work Phone: Start: 12-31-2021 Verification routine [facility] Work Phone: Start: 12-31-2021 Admission procedure [facility] Work Phone: Start: 12-02-2021 [facility] Work Phone: Start: 2019 Lipid panel LIPID SCREENING [facility] Start: 1998 Hepatitis B vaccination HEP B VACCINE (1 of 3 - 19+ 3-dose series) [facility] Start: 1998 Third diphtheria, tetanus and acellular pertussis (DTaP) vaccination TDAP (ADULT) [facility] Start: 1994 HIV screening HIV SCREENING DISCUSSION [facility] Start: 1979 Hepatitis C screening HEPATITIS C VIRUS SCREENING [facility] Start: 1979 Tetanus vaccination TETANUS [facility] Anion gap measurement [facility] Work Phone: BUN/Creatinine ratio [facility] Work Phone: Calcium [Mass/volume ] in Serum or Plasma [facility] Work Phone: Carbon dioxide, tota l [Moles/volume] in Serum or Plasma [facility] Work Phone: Chloride [Moles/volu me] in Serum or Plasma [facility] Work Phone: Creatinine [Moles/vo lume] in Serum or Plasma [facility] Work Phone: Glucose [Mass/volume ] in Serum or Plasma [facility] Work Phone: Hematocrit [Volume F raction] of Blood [facility] Work Phone: Hemoglobin [Mass/vol ume] in Blood [facility] Work Phone: Leukocytes [#/volume ] in Blood [facility] Work Phone: Mean corpuscular hem oglobin concentration determination [facility] Work Phone: Mean corpuscular hem oglobin determination [facility] Work Phone: Measurement of renal function [facility] Work Phone: Neutrophil count [facility] Work Phone: Neutrophil percent differential count [facility] Work Phone: Patient Education [facility] Work Phone: Patient referral [facility] Work Phone: Platelets [#/volume] in Blood [facility] Work Phone: Potassium [Moles/vol ume] in Serum or Plasma [facility] Work Phone: Red blood cell count [facility] Work Phone: Red cell distributio n width determination [facility] Work Phone: Sodium [Moles/volume ] in Serum or Plasma [facility] Work Phone: Urea nitrogen [Mass/ volume] in Serum or Plasma [facility] Work Phone: Immunizations Immunization Date Immunization Notes Care Provider Fa [facility] 02-28-2022 tetanus toxoid, redu jd diphtheria toxoid, and acellular pertussis vaccine, adsorbed Dr. Ena Holloway Work Phone: [facility] Payers Date Payer Category Payer Private Health Insurance 0ab [id number] 2024 Self-pay [id number] 2024 Unknown [id number] 2012 Medicaid [id number] 2012 Unknown [id number] 1979 Unknown [id number] 2.16. [id number] Private Health Insurance [id number] Unknown [id number] Unknown [id number] 2.16.8 [id number] Unknown [id number] 2.16.8 [id number] Unknown [id number] 2.16.8 [id number] Unknown [id number] 2.16.8 [id number] Unknown [id number] 2.16.8 [id number] Unknown [id number] 2.16.8 [id number] Unknown [id number] 2.16.8 [id number] Unknown [id number] 2.16.8 [id number] Unknown [id number] 2.16.8 [id number] Unknown [id number] 2.16.8 [id number] Unknown [id number] 2.16.8 [id number] Unknown [id number] 2.16.8 [id number] Social History Date Type Detail Facility Start: 09-20-2021 End: 07-26-2023 Tobacco smoking status ALIS Unknown if ever smoked [facility] Start: 06-30-2018 None [facility] Start: 12-29-2018 With Family [facility] Start: 04-22-2020 Cigarettes [facility] Start: 1980 Sex Assigned At Male [facility] Start: 08-28-2023 Tobacco smoking stat us NHIS Ex-smoker [facility] History of tobacco use Current smoker [facility] History of tobacco use Cigarette Smoker [facility] Start: 08-28-2023 Tobacco use and exposure Smokeless tobacco non-user [facility] Start: 08-28-2023 Alcoholic beverage intake Ex-drinker (finding) [facility] Start: 08-28-2023 History of Social function [facility] Start: 08-28-2023 Tobacco use panel [facility] Start: 1980 Sex assigned at Not on file [facility] Start: 10-15-2024 Tobacco smoking stat us ALIS Current Light tobacco smoker [facility] Tobacco smoking status [facility] Start: 10-02-2020 Sex Male (finding) [facility] Start: 10-30-2024 End: 01-11-2025 Tobacco smoking status NHIS Smokes tobacco daily (finding) [facility] Goals Date Patient Goal Desired Activity /State Functional Status Date Assessment Result Facility 01-07-2022 Functional status Ambulates [facility] Work Phone: 01-03-2022 Functional status Ambulates;Up ad [facility] Work Phone: Mental Status Date Assessment Result Facility 01-11-2025 Cognitive function Level Of Consciousness Awake [facility] Work Phone: 11-25-2024 Cognitive function Awake;Alert;A ppropriate;Follow s Commands [facility] Work Phone: 10-15-2024 Cognitive function Awake;Alert;A ppropriate;Follow s Commands [facility] Work Phone: 01-07-2022 Cognitive function Level Of Cons ciousness Awake;Alert;Appropriate;Follow s Commands [facility] Work Phone: 01-06-2022 Cognitive function Comprehension Ability Demonstrates ability to follow instructions/comprehend [facility] Work Phone: 01-06-2022 Cognitive function Arousable To Light Dianna n [facility] Work Phone: 01-06-2022 Cognitive function Appropriate;Cooperativ e [facility] Work Phone: 01-03-2022 Cognitive function Awake;Alert;Appropriat [facility] Work Phone: 01-03-2022 Cognitive function Appropriate;Janis [facility] Work Phone: 12-02-2021 Cognitive function Voice/Name [facility] Work Phone: Clinical Notes 10-15-2021 to 01-11-2025 Note Date & Type Note Facility 01-11-2025 Discharge summary [facility] 01-11-2025 Discharge summary Note Date/Time January 11, 2025 6:46pm [facility] Medical Records Department [address] [place] [address] Emergency Department Summary 01/11/25 MR#: [id number] Acct: [id number] Name: ANDREW MCLEAN . Rep #:[id number] [...] needs to come to the emergency department. [facility] Medical History Migraines Asthma Internal [...] the patient medically admitted for placement and residential facility/rehab if he is having that frequent [...] outpatient record Management Discussion w/another healthcare provider: Plate Keeper (Orthopedic spine surgery, Dr. Villagran) Discharge Plan [...] 3-5 Days if not improving Makeda Hawkins, DATA REPORTING ANALYST-C [Primary Care Provider, Family Practice] Activity Restrictions/Additional Instructions: Take the Medrol Dosepak as directed. Wear soft collar for support. Return withfever, new or worsening symptoms. Discussed with your primary care provider or orthopedics about outpatient rehabilitation. Print Language: [place] Disposition Disposition: Home, Self Care What to do if you have Problems For any increased pain, shortness of breath, bleeding, nausea or vomiting, chestpain, or any unexpected problems, contact your Primary Care Provider. Call [facility] ([phone]) or report to the closest Emergency Room. Call 911 if necessary. 01/11/25 184 <Electronically signed by Junior Johnson MD> Cosigner Signature (if applicable): CC: LUCIANO Hawkins ~ Signed [facility] Work Phone: 1(599) 845-324410-02-2025 Evaluation note* Diagnosis Onset Date Resolution Status Admit Date Cervical myelopathy with cervical radiculopathy acute January 052024 8:01am [facility] Work Phone: 1(754) 220-669908-22-2025 Radiology Diagnostic study note [facility] Imaging Services [address] [place], [place] [address] Cerv Spine 2 or 3 Views MR#: [id number] Acct: [id number] Name: ANDREW MCLEAN Jr. Rep #: [id number] : 1980 M 44 From: Srinivas Guerra MD PCP: LUCIANO Peñaloza Status: REG E R Study:Cerv Spine 2 or 3 Views Date of Exam: 11/25/24 Exam# [id number] Ordering Dr: Herberth Donohue DO PROCEDURE: CERV [...] spasm. 3. Mild degenerative changes. Reading Location: [facility] CC: DATA REPORTING ANALYST-C Makeda Hawkins; Dr. Herberth Donohue, DO ~ Natural Science Curator: Signed [facility]07-28-2025 Discharge summary [facility] Medical Records Department [address] [place] [address] Emergency Department Summary 10/30/24 MR#: [id number] Acct: [id number] Name: ANDREW MCLEAN Jr. Rep #:[id number] [...] out of the area. No suspiciousfood intake. 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 Reading Location: [place] [address] Discharge Plan Triage Chief Complaint: Nausea/Vomiting/Diarrhea ED [...] Care Provider: Makeda Hawkins Referrals: Makeda Hawkins, DATA REPORTING ANALYST-C [Primary Care Provider] - 3-5 Days if not improving Print Language: [place] Disposition Disposition: Home, Self Care What to do if you have Problems For any increased pain, shortness of breath, bleeding, nausea or vomiting, chestpain, or any unexpected problems, contact your Primary Care Provider. Call [facility] ([phone]) or report tothe closest Emergency Room. Call 911 if necessary. 10/31/24 0302 Cosigner Signature (if applicable): CC: LUCIANO Hawkins ~ Signed [facility]07-28-2025 Radiology Diagnostic study note [facility] Imaging Services [address] [place] [address] Abdomen/Pelvis W IV Cont ONLY MR#: [id number] Acct: [id number] Name: ANDREW MCLEAN Jr. Rep #: [id number] : 1980 M 44 From: Fiorella Lucero MD PCP: LUCIANO Peñaloza Status: REG E R Study:Abdomen/Pelvis W IV Cont ONLY Date of E xam: 10/30/24 Exam# [id number] Ordering Dr: Bismark Gonzalez MD PROCEDURE: ABDOMEN/PELVIS [...] LUCIANO Hawkins; Dr. Josef Gonzalez MD ~ Natural Science Curator: Signed [facility]07-27-2025 Discharge summary Author Josef Gonzalez [facility] Note Date/Time October 31, 2024 3:02 am [facility] Medical Records Department [address] [place] [address] Emergency Department Summary 10/30/24 MR#: [id number] Acct: [id number] Name: ANDREW MCLEAN Jr. Rep #:[id number] [...] out of the area. No suspiciousfood intake. 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 Reading Location: [place] [address] Discharge Plan Triage Chief Complaint: Nausea/Vomiting/Diarrhea ED [...] 3-5 Days if not improving Print Language: [place] Disposition Disposition: Home, Self Care What to do if you have Problems For any increased pain, shortness of breath, bleeding, nausea or vomiting, chestpain, or any unexpected problems, contact your Primary Care Provider. Call [facility] ([phone]) or report to the closest Emergency Room. Call 911 if necessary. 10/31/24 0302 <Electronically signed by Josef Gonzalez MD> Cosigner Signature (if applicable): CC: LUCIANO Hawkins ~ Signed [facility] Work Phone: 1(973) 317-337007-14-2025 Hospital Discharge instructions Patient Education 10/17/2024 14:43:28 [...] Swelling, pain or redness in one leg 6610-1871 [employer]. [address] [place] [address]. All rights reserved. This information is not [...] about: All medicines you take, including prescription, iegx-sht-dgssfjy, herbs, and supplements Any other symptoms you [...] Chest, arm, neck, back, or jaw pain 7065-[address] [employer] [place] [address]. All rights reserved. This information is not [...] face You have trouble talking or seeing [phone] [employer]. [address] [place] [address], [place] [address]. All rights reserved. This information is not [...] needed.Return to the ED if symptoms worsen. [facility] 07-14-2025 Note Discharge Instructions Thank you for allowing [facility] to assist you with your healthcare needs. [...] may report side effects to FDA at [phone]-NFV-6878. What other drugs will affect meclizine? Using [...] drugs may affect meclizine, including prescription and hxfr-njx-rnydlkt medicines, vitamins, and herbal products. Tell your [...] to ensure that the information provided by [employer] ('[employer]') is accurate, up-to-date, and complete, but no guarantee is made to that effect. Drug information contained herein may be time sensitive. [employer] information has been compiled for use by healthcare practitioners and consumers in the [place] and therefore [employer] does not warrant that uses outside of the [place] are appropriate, unless specifically indicated otherwise. [employer]s drug information does not endorse drugs, diagnose patients or recommend therapy. [employer]s drug information isan informational resource designed to [...] effective or appropriate for any given patient. [facility] does not assume any responsibility for any aspect of healthcare administered with the aid of information [facility] provides. The information contained herein is not intended to cover all possible uses, directions, precautions, warnings, drug interactions, allergic reactions, or adverse effects. If you have questions about the drugs you are taking, check with your doctor, nurse or pharmacist. Copyright 7607-8088 [facility]. Version: 8.02. Revision Date: 08/05/2024. Education Materials [...] Swelling, pain or redness in one leg 8952-9321 [employer]. [address] [place] [address], [place] [address]. All rights reserved. This information is not intended as a substitute for professional medical care. Always follow yourhealthcare professional's instructions. Dizziness (Uncertain Cause) Dizziness is a common symptom. It may be described as lightheadedness, spinning, or feeling like you are going to faint. Dizziness can have many causes. Be sure to tell the healthcare provider about: All medicines you take, including prescription, wmdt-hnq-oneqxno, herbs, and supplements Any other symptoms you [...] Chest, arm, neck, back, or jaw pain 7270-4242 [employer]. [address] [place] [address], [place] [address]. All rights reserved. This information is not [...] face You have trouble talking or seeing 1118-1387 [employer]. [address] [place] [address], [place] [address]. All rights reserved. This information is not intended as a substitute for professional medical care. Always follow yourhealthcare professional's instructions. Additional Information VACCINATE! IT SAVES LIVES! Members of the community who have not yet received the COVID-19 vaccine and would like to receive it can visit one of [facility] vaccine clinics. There are many vaccine clinic locations within the [facility]. For locations and available times, please visit www.gettheshot.coronavirus.[place].gov/. It is important to note that some COVID mobile vaccine clinics are held outdoors and may be canceled in rainy or stormy conditions. To learn more about pediatric vaccinations (ages 5-11), we invite you to visit the [facility] webpage. https://www.[facility].org/pages/2826-Ippml-Yjdboeuqovl-Akwgqatons-Xcbye-Mbc stions.htmlTo learn more about the COVID-19 vaccine, we invite you to visit the CDC website for a list of frequently asked questions. https://www.cdc.gov/coronavirus/2019-ncov/vaccines/faq.html [facility] Patient Portal Access Instructions: Stay connected with your healthcare team and access your personal medical information anytime with the [facility] Patient Portal. If you would like a full copy of your medical records please contact the [facility] Medical Records Department Thursday through Thursday between 8a.m. and 4:30p.m. Please follow the directions below to access the portal: 1.Access the email account you provided upon registration to the [facility].2.Look for an invitation email from [facility].3.Open the email and access the invitation link: Accept Invitation to [facility]4.Fill in the required dumont to create your [...] you will allow to register on the [facility] Patient Portal for access to your information. You can also access the [facility] Patient Portal on the [employer]. Simply click on "Health Records" under "HealthDabuySAFE" and then click on the Anne logo. [...] Call your local pharmacy or go to http://[employer]/5E5Em5z to find one close to you.3.Make use of household items: Use cat litter or old coffee grounds to dispose medications if other options arenot available. Mix your drugs with these household products, seal them in an airtight container andthrow it into the garbage. Call [facility]: [phone] to be sure your drugs can be [...] that I should contact my d octor. 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 Signature: Date/Time: Relationship to Patient: Witness Name/Signature: Date/Time: [facility]07-14-2025 Note* Exam Date Time Procedure Performing Provider Status 10/17/24 1:[address] Angiography Neck w/ Contrast HUDSON SHAY MD; Auth (Verified) [id number] ORIGINAL EXAMINATION: CTA neck: TECHNIQUE: Contiguous spiral [...] Hudson Villagomez MD Electronically signed By Hudson iVllagomez MD Dictated Date: 10/17/2024 1:42:56 PM Prelim Date: 10/17/2024 1:48:02 PM Sign Date: 10/17/2024 1:48:02 PM Ordering Provider: [facility]07-14-2025 Note* Exam Date Time Procedure Performing Provider Status 10/17/24 1:[address] Angiography Head w/ Contrast HUDSON SHAY MD; Auth (Verified) [id number] ORIGINAL EXAMINATION: CT Angiogram of the head [...] Date: 10/17/2024 1:51:26 PM Ordering Provider: DAYAN [facility]07-14-2025 Note* Exam Date Time Procedure Performing Provider Status 10/17/24 1:[address] Angiography Chest w/ Contrast ARNOLD DOWELL MD; Auth (Verified) [id number] ORIGINAL EXAMINATION: CTA OF THE without then [...] 10/17/2024 2:34:48 PM Ordering Provider: DAYAN KIDD [facility]07-14-2025 Note* Exam Date Time Procedure Performing Provider Status 10/17/24 12:24 PM EKG [ED AOH] - CV PRO QUINONES MD; Auth (Verified) ECG Final Report Sinus rhythm Electronic Signature: PRO QUINONES MD 10/17/2024 12:30:21 [facility]07-12-2025 Radiology Diagnostic study note [facility] Imaging Services [address], [place] [address] CTA Chst, Abd, Pel W and/or WO MR#: [id number] Acct: [id number] Name: ANDREW MCLEAN Jr. Rep #: [id number] : 1980 M 44 From: Fiorella Brannon MD PCP: Care Physician,No Primary Status: REG ER Study:CTA Chst, Abd, Pel W and/or WO Date of Exam: 10/15/24 Exam# [id number] Ordering Dr: Hattie Wells DO PROCEDURE: CTA [...] THE CHEST, ABDOMEN OR PELVIS. Reading Location: [id number] CC: Dr. Kenny Wells DO; No Primary Care Physician ~ Natural Science Curator: Signed [facility]05-24-2024 Hospital Discharge instructions* Discharge Instructions* Ngoc Oliveros DO - 08/28/2023 6:11 PM EDT Increase fluids. Drink plenty of water. Stay hydrated. Warm saltwater gargles as needed. Tylenol, ibuprofen for fever pain and body aches. Available vynh-haj-gihbkus use as directed. Zithromax once a day [...] Everywhere. * URI (Upper Respiratory Infection): Viral ([place]ican) * Acute Bronchitis or Chest Cold Care Instructions ([facility]) ([place]) documented in this [facility]05-24-2024 Physician Emergency department Note* Ngoc Oliveros DO - 08/28/2023 6:04 PM EDT Emergency Department Report [facility] EMERGENCY MEDICINE Service Date:.08/28/23 PCP: Ngoc Holloway [...] sprays per nostril BID for 7 days. [id number] 30-2-10 MG/5ML SYRUP Take 5 mL by [...] tablet 500 mg azithromycin 500 MG tablet rybtkeejesdrpli-dfvnfnxykwswxlg-tunolotitehhbjcu 30-2-10 MG/5ML Syrup fluticasone 50 MCG/ACT Suspension [...] and needs awork note. 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 [id number]-[id number] 30-2-10 MG/5ML SYRUP Take 5 mL by mouth every 6 hours as needed for Cold Symptoms, Cough, Congestion or Rhinitis. Discontinued Medications No medications on file An After Visit Summary was printed and given to the patient with above information. . Ngoc Oliveros DO 08/28/231825 Ngoc Oliveros DO 08/28/231827 [facility]05-24-2024 Emergency department Note* Ngoc Oliveros DO - 08/28/2023 6:04 PM EDT Emergency Department Report [facility] EMERGENCY MEDICINE Service Date:.08/28/23 PCP: Ngoc Holloway [...] sprays per nostril BID for 7 days. [id number] 30-2-10 MG/5ML SYRUP Take 5 mL by [...] tablet 500 mg azithromycin 500 MG tablet ntsazwnyplnukhr-wwhivkzfzyopaux-ahsnyjbribakebvl 30-2-10 MG/5ML Syrup fluticasone 50 MCG/ACT Suspension [...] and needs awork note. 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 He can go back [...] sprays per nostril BID for 7 days. [id number]-[id number]-[id number] 30-2-10 MG/5ML SYRUP Take 5 mL by mouth every 6 hours as needed for Cold Symptoms, Cough, Congestion or Rhinitis. Discontinued Medications No medications on file An After Visit Summary was printed and given to the patient with above information. . Ngoc Oliveros DO 08/28/231825 Ngoc Oliveros DO 08/28/231827 documented in this [facility]04-21-2024 Hospital Discharge instructions Additional Instructions Use ice to the left shoulder 4-5 times a day for approximately 20 minutes at a time. Do range of motion exercises after icing.[facility] Work Phone: [phone] Hospital Discharge instructionsAdditional Instructions The testing of [...] needs reevaluated. Return to ER if symptoms worsen.[facility] Work Phone: Evaluation + Plan note No data available for this section [facility] Evaluation noteNo assessment information available [facility] Work Phone: Evaluation note* Diagnosis Onset Date Resolution Status Dehydration acute GI bleed acute [facility] Work Phone: Evaluation note* Diagnosis Onset Date Resolution Status Dehydration acute GI bleed acute Pancreatitis acute [facility] Work Phone: Evaluation note* Diagnosis Onset Date Resolution Status Dehydration acute GI bleed acute Pancreatitis acute GI bleed acute [facility] Work Phone: Evaluation note* Diagnosis Onset Date Resolution Status Dehydration acute GI bleed acute Pancreatitis acute Dehydration acute GI bleed acute Hypertension acute Pancreatitis acute [facility] Work Phone: Evaluation note* Diagnosis Onset Date Resolution Status GI bleed resolved Hypertension acute GI bleed resolved [facility] Work Phone: Evaluation note* Diagnosis Upper respiratory tract infection, unspecified type- Primary Bronchitis Bronchitis, not specified as acute or chronic [facility] Additional Instructions Ice area and elevate, take ibuprofen as needed for swelling and pain. Use crutches and Aircast for as long as you need, you should be able to use the crutches less or not at all after 1 or 2 weeks.[facility] Work Phone: Hospital Discharge instructionsWCh[facility] Work Phone: Hospital Discharge instructionsAdditional Instructions Right [...] prescribed follow-up with your doctor for further testing.[facility] Work Phone: Hospital Discharge instructionsAdditional Instructions Take the Medrol Dosepak as directed. Wear soft collar for support. Return with fever, new or worsening symptoms. Discussed with your primary care provider or orthopedics about outpatient rehabilitation.[facility] Work Phone: Reason for referral (narrative)No reason for referral information availableWChillicothe [facility] Work Phone: Summary Purpose Family History No Family History Records Found Relationship Condition Age at Onset Recorded Date/T bill Not Specified Malignant neoplasm of liver Unknown Malignant neoplasm of ovary Unknown Advance Directives No Advanced Directives Records Found Advance Directive Response Recorded Date/ Time Living Will No Cindy 17th, 2022 6:21am Power of Senior Insight Manager No September 20 6:21am Advance Directive Response Recorded Date/ Time Living Will No November 15 5:55pm Power of Senior Insight Manager No November 15 5:55pm Advance Directive Response Recorded Date/ Time Living Will No December 02 9:59am Power of Senior Insight Manager No December 02 9:59am Advance Directive Response Recorded Date/ Time Living Will No December 31, 2021 3:47pm Power of Senior Insight Manager No December 3:47pm Advance Directive Response Recorded Date/ Time Living Will No December 31, 2021 9:47pm Power of Senior Insight Manager No December 9:47pm Advance Directive Response Recorded Date/ Time Living Will No January 06 1:15am Power of Senior Insight Manager No January 06 1:15am Advance Directive Response Recorded Date/ Time Living Will No January 06 4:05am Power of Senior Insight Manager No January 06 4:05am Advance Directive Response Recorded Date/ Time Living Will No February 28 8:34am Power of Senior Insight Manager No February 28, 2022 8:34am Advance Directive Response Recorded Date/ Time Living Will No March 03 7:42pm Power of Senior Insight Manager No March 03, 2022 7:42pm Advance Directive Response Recorded Date/ Time Living Will No April 16 8:29am Power of Senior Insight Manager No April 16, 2023 8:29am Advance Directive Response Recorded Date/ Time Living Will No July 26, 2023 12:11pm Power of Senior Insight Manager No July 25 12:11pm Advance Directive Response Recorded Date/ Time Do you have a Healthcare Power of Senior Insight Manager? No October 15, 2024 12:43pm Advance Directive Response Recorded Date/ Time Do you have a Healthcare Power of Senior Insight Manager? No October 15, 2024 12:43pm Do you have a Healthcare Power of Senior Insight Manager? No October 30, 2024 10:59pm Advance Directive Response Recorded Date/ Time Do you have a Healthcare Power of Senior Insight Manager? No October 15, 2024 12:43pm Do you have a Healthcare Power of Senior Insight Manager? No October 30, 2024 10:59pm Do you have a Healthcare Power of Senior Insight Manager? No November 25, 2024 3:27pm Advance Directive Response Recorded Date/ Time Do you have a Healthcare Power of Senior Insight Manager? No October 15, 2024 12:43pm Do you have a Healthcare Power of Senior Insight Manager? No October 30, 2024 10:59pm Do you have a Healthcare Power of Senior Insight Manager? No November 25, 2024 3:27pm Do you have a Healthcare Power of Senior Insight Manager? No January 11, 2025 5:23pm Chief Complaint [...] section and content) DATE CREATED AUTHOR 10/03/2020 [facility] ([place] DATE CREATED AUTHOR AUTHOR'S ORGANIZ ATION 05/26/2021 [facility] [place] DATE CREATED AUTHOR AUTHOR'S ORGANIZ ATION [facility] DATE CREATED AUTHOR AUTHOR'S ORGANIZ ATION 10/24/2024 [facility] DATE CREATED AUTHOR AUTHOR'S ORGANIZ ATION 01/18/2025 [facility] Goals (unrecognized section and content) Goals may [...] Dr. Rhett Tyler DO Emergency Provider Active It Architecture Analyst Relationship Specialty Start Date End Date Ngoc Holloway DO [address] [place] [id number] PCP - General Family Medicine 08/28/23 Team [...] Active Member Role/Relationship Status Dates Makeda Hawkins DATA REPORTING ANALYST-C Primary Care Provider Active Team Status: Inactive [...] Inactive Member Role/Relationship Status Dates Makeda Hawkins DATA REPORTING ANALYST-C Primary Care Provider Active Start: October 30, 2024 End: October 31, 2024 Dr. Josef Gonzalez MD Emergency Provider Active Start: October 30, 2024 End: October 31, 2024 Team Status: Inactive Member Role/Relationship Status Dates Makeda Hawkins DATA REPORTING ANALYST-C Primary Care Provider Active Start: October 30, 2024 End: October 31, 2024 Dr. Josef Gonzalez MD Attending Provider Active Start: October 30, 2024 End: October 31, 2024 Dr. Josef Gonzalez MD Emergency Provider Active Start: October 30, 2024 End: October 31, 2024 Team Status: Inactive Member Role/Relationship Status Dates Makeda Hawkins DATA REPORTING ANALYST-C Primary Care Provider Active Start: November 07, 2024 End: November 07, 2024 Makeda Hawkins NP-C Attending Provider Active Start: November 07, 2024 End: November 07, 2024 Makeda Hawkins DATA REPORTING ANALYST-C Referring Provider Active Start: November 07, 2024 End: November 07, 2024 Team Status: Inactive Member Role/Relationship Status Dates Makeda Hawkins DATA REPORTING ANALYST-C Primary Care Provider Active Start: November 25, 2024 End: November 25, 2024 Dr. Herberth Donohue DO Emergency Provider Active Start : November 25, 2024 End: November 25, 2024 Team Status: Active Member Role/Relationship Status Dates Makeda Hawkins , DATA REPORTING ANALYST-C Primary care physician Active Team Status: Inactive [...] Status: Inactive Member Role/Relationship Status Dates Makeda Hawikns NP-C Primary care physician Active Start: November [...] 05, 2025 End: January 05, 2025 ZAHRAA Ceils Attending physician Active Sta rt: January 05, [...] BE BASED ON THE PRIMARY CLINICAL RECORDS. [facility] [employer] [facility]. provides no warranty or guarantee of the accuracy or completeness of information in this document.
[2025-01-19] MEDS: Lactated Ringers 3,000 ML 3000 ML IV (01:02)
--- NOTE | 2025-01-19 01:40 | PCM.HP.BLA ---
History and Physical Patient is a 45-year-old gentleman who underwent C5-7 ACDF on 01/18/2025 and was discharged home after surgery. He started having difficulty with breathing and came into the emergency room. He was evaluated in the ER with a CT neck and I was paged at 10:59 PM on 01/18/2025. Decision was made to urgently take him back to the OR for hematoma evacuation. Throughout his postoperative recovery, he was hypertensive with diastolics above 100. Patient had a diagnosis of hypertension in the past but was in and out of medical treatment for this due to insurance issues per the patient's . I examined the patient in the ER, patient was conversant and saturating in the mid 90s. He was moving all 4 extremities with good strength. He was able to sit up. He was having significant air hunger. Patient was considered stable enough to be transported to the OR for airway control rather than intubating in the ER. In the OR, incision was opened and finger dissection for hematoma evacuation was performed to allow easy intubation under sedation. Once intubated, patient underwent a formal I&D and hematoma evacuation and drain placement. Please see details in the operative note. Decision was made to keep the patient intubated in the ICU. I spoke to the patient's after the procedure. Answered all questions.
--- NOTE | 2025-01-19 01:44 | OP.PCM_ITS ---
Procedures Musculoskeletal [id number]-29xxx: Other Procedure See Report Operative Report (Standard) Operative Information Date of Procedure: 01/19/25 Pre-Operative Diagnosis: Neck hematoma, status C5-7 post ACDF Post-Operative Diagnosis: same Surgery/Procedure Performed: Surgical I&D, IV hematoma evacuation, placement of drain in the anterior neck. assistant infant teacher: Yes Supervisor Fertilizer Processing: pat Tasks completed by floor covering printer assistant: Closing, Hemostasis: Electrocautery and Retracting Type of Anesthesia: General RN Documented Start/Stop Times: Operation Date: 01/19/25 00:15 Case Time Anesthesia Start 01/19/25 00:08 Into Room 01/19/25 00:08 Procedure Start 01/19/25 00:32 Procedure End 01/19/25 01:21 Procedure Start Time: :32 Procedure Stop Time: 01:21 Select all DRAINS/GRAFTS/IMPLANTS that apply: Drains Drain details: Channel drain Estimated Blood Loss: 30 cc Specimen collected: No Description of surgery: Preoperative diagnosis: Neck hematoma, status post C5-7 ACDF Postoperative diagnosis: Same Procedure: Surgical I&D, IV hematoma evacuation, placement of drain in the anterior neck. [address]341 Anesthesia: General Indications: Patient underwent C5-7 ACDF and presented back with difficulty breathing and was found to have neck hematoma on CT scan. Because of increasing breathing difficulty, decision was made to perform hematoma evacuation and secure the airway. Discussed with patient and all risk benefits and alternatives. Discussed the urgent nature of the procedure to secure the airway and evacuate hematoma. Procedure: Patient was urgently brought to the OR from the emergency room. Under sedation, intubation was attempted with fiberoptic technique. Anesthesia requested urgent release of hematoma to allow easy intubation. ChloraPrep used to prep around the incision. Incision was opened with sterile scissors, and finger dissection and suction allowed removal of some of the blood clots and intubation was completed. Once the airway was well secured and patient was stabilized, surgical area was prepped with Betadine. Draping was done using all sterile precautions. Incision was clean and completely opened. Entire hematoma was evacuated going deep up to the anterior cervical plate. The entire prevertebral space was thoroughly evacuated of hematoma. Thorough irrigation was performed. Thorough evaluation of all raw surfaces were performed to make sure no active bleeders were present. Small oozing was noticed from the longus coli muscles bilaterally worse on the left which was controlled with Bovie and bipolar. Irrisept was kept in the wound for 1 minute. This was washed out with normal saline. Hemoblast was placed over the entire surgical area for hemostasis. Once adequate hemostasis was achieved, channel drain was placed through separate incision going deep into the prevertebral space. Closure of wound was done with 3-0 Vicryl for subcutaneous tissues and platysma, angie for skin. 4 x 4 dressing with Tegaderm was applied. Collar was placed. Anesthesia performed a wake-up test to make sure patient was moving all 4 extrem ities. Decision was made to keep patient intubated and transferred to the ICU. Surgical Findings: See operative note Complications Complications: No
[2025-01-19] MEDS: PROPOFOL 6.33 MG IV (01:47)
[2025-01-19] MEDS: Propofol 10MG/Ml 1,000 MG/100 ML Bottle 43.9 MG CONT INF (02:08)
--- NOTE | 2025-01-19 02:13 | PN_ITS ---
Subjective Subjective Patient is a 45-year-old male with past medical history as outlined including cervical myelopathy with cervical radiculopathy who had C5-C7 anterior cervical disc fusion on 10/18/2024. He was discharged home after the surgery. However he subsequently started having difficulty breathing and so came to the ED. There was concern for hematoma so he had an emergent CT of the neck done in the ED which showed tracheal deviation and a large hematoma. He was therefore taken emergently to the ED for hematoma evacuation. In the OR the incision was opened up and the hematoma was evacuated to allow for easy intubation under sedation. He then had a formal incision and drainage and hematoma evacuation and drain placement. He was sent to the ICU intubated and hospitalist service was consulted for medical management. Patient was seen in the ICU after the operation. She was intubated and sedated. Unable to do review of systems. Vitals are BP of 148/136, [place] of 111, RR of 18 and he is on the vent. Objective Data Objective Data Vital Signs: Vital Signs Temp Pulse Resp BP Pulse Ox O2 Del Method O2 Flow Rate 98 F 111 H 18 148/136 H 100 Non-Rebreather 10 01/18/25 23:34 01/19/25 00:00 01/19/25 00:00 01/18/25 23:54 01/19/25 00:00 01/18/25 23:54 01/18/25 23:54 Oxygen Flow Rate (L/min) 10 Oxygen Delivery Method Non-Rebreather Weight: 201 lb 12.648 oz Body Mass Index (BMI) 29.7 Intake & Output: Intake and Output for Last 24 Hours 01/17/25 01/18/25 01/19/25 23:59 23:59 23:59 Output Total 100 / 100 Balance -100 / -100 Lab / Micro Data 01/18/25 21:00 01/18/25 21:00 Labs: Laboratory Results - last 24 hr 01/18/25 21:00: WBC 18.3 H, RBC 5.61, Hgb 18.7 H*, Hct 52.4, MCV 93.4, MCH 33.3 H, MCHC 35.7, RDW Std Deviation 41.1, RDW Coeff of Sravani 12.0, Plt Count 218, MPV 10.8, Immature Gran % (Auto) 0.800, Neut % (Auto) 92.4 H, Lymph % (Auto) 4.7 L, [place] % (Auto) 1.9, Eos % (Auto) 0.0, Baso % (Auto) 0.2, Absolute Neuts (auto) 16.9 H, Absolute Lymphs (auto) 0.87, Nucleated RBC % 0, Sodium 138, Potassium 4.9, Chloride 102, Carbon Dioxide 19.5 L, Anion Gap 16 H, BUN 16, Creatinine 1.00, Estim Creat Clear Calc 103.18, Est GFR (MDRD) Non-Af 94, BUN/Creatinine Ratio 16.2, Glucose 167 H, Calcium 9.5 Radiography Diagnostic Testing: Radiology Impression Soft Tissue Neck CT 01/18/25 21:21 IMPRESSION: Postop changes of C5-C7 ACDF. Large heterogeneous fluid/hematoma collection within the surgical bed tracking along the prevertebral soft tissues and into the upper mediastinum with scattered soft tissue air, much more than typically expected postoperatively. There is a small blush of contrast extravasation concerning for active bleeding within the left paramidline prevertebral soft tissues at the C7 level. Mass-effect with on the adjacent airway with anterior right displacement but without substantial narrowing. Recommend surgical consultation. Findings communicated via telephone with provider Junior Johnson 01/18/2025 at 9:45 p.m. BREAST SURGEON, with read back verification. Reading Location: [facility] Chest X-Ray 01/18/25 22:26 IMPRESSION: No acute cardiopulmonary disease. Reading Location: [facility] Physical Exam Const Constitutional Narrative: patient intubated, sedated, RASS score is -4 HEENT head/scalp atraumatic and moist oral mucous membranes Eyes EOMs intact bilaterally Neck Neck Narrative: intact dressing over anterior neck. Lymph Lymphatic: no lymphadenopathy noted Resp Resp Narrative: intubated, sedated, RASS score is -4 Cardio regular rate, regular rhythm, S1 normal heart sound, S2 normal heart sound and no murmurs GI normal to inspection, nondistended, normoactive bowel sounds, soft to palpation and non-tender Extremity normal capillary refill, no clubbing, cyanosis or edema and no calf tenderness General Extremity: no tenderness to palpation of joints or extremities Skin General Skin Exam: no breakdown Neuro Neuro Narrative: intubated, sedated, RASS score is -4 Assessment & Plan Assessment/Plan (1) Postoperative hematoma: (2) Status post cervical spinal fusion: PLAN: Plan #Post op hematoma * had anterior cervical disc fusion on 01/18/2025 and was discharged home after. He subsequently became short of breath and so came back to the ED werhe he was found to have a large post op hematoma * Was taken emergently to the OR and had I&D and evacuation of the hematoma done. Patient intubated and sent to the ICU still intubated. * Management as per primary service spine surgery. On steroids and IV antibiotics * Critical care consulted #Post op acute hypoxic respiratory failure * intubated and sedated emergently and is s/p I&D and evacuation of anterior neck post op hematoma * critical consulted per primary service * breathing treatment with bronchodilators. * remains intubated. * #Hypertension * Patient's blood pressure was elevated in the ED in OR. Per spine surgeon he required several doses of IV hydralazine * At time of my review blood pressure had come down to the 130s systolic. * Apparently patient has a history of high blood pressure and was prescribed medication but had not taken it due to insurance issues. * Placed on IV hydralazine as needed for now with target diastolic of 90. Primary service. * Will benefit from switching to oral blood pressure medications once he is extubated. * DVT prophylaxis: SCDs. No anticoagulation due to the hematoma. Charges/Coding Visit Charges Inpatient E&M: 44114 Init Hosp L3
[2025-01-19] MEDS: fentaNYL drip 100 ML 2.5 MCG CONT INF (02:20)
--- NOTE | 2025-01-19 02:27 | PCM.POST.ANE ---
Anesthesia: Postop Eval I Current Vital Signs Temperature: 36.7 F Pulse Rate: 110 Blood Pressure: 131/81 Respiratory Rate: 12 Pulse Ox: 99 Oxygen Delivery Method: Mechanical Ventilator Fraction of Inspired Oxygen (FIO2): 35 Assessment Airway patent: Yes Spontaneous unlabored respirations: Yes Mental status: Calm (Sedated on propofol infusion in ICU) nausea: No Vomiting: No Anesthesia Complication: No Fluid Hydration Crystalloid volume administer (ml): 3,000 Total IV fluid infused: 3,000 Progress Note Post-operative progress note: The patient was transferred to the ICU in discussing with the surgeon for postop management. Stable on transport on sedation of propofol infusion. Report given at bedside in ICU with surgeon present nurse present respiratory therapist present. Vital signs stable. Patient sedated and intubated. On mechanical ventilation. Prior to transfer to ICU wake up test done. The patient opens eyes and following commands. Moving all extremities and squeezing hands bilaterally. Surgeon present on wake-up test. After the test sedated with propofol and transferred to ICU. Anesthesia document: Postop Eval 1 completed: Yes
--- NOTE | 2025-01-19 02:30 | PCM.PRE.AN2 ---
ASA Classification* ASA Classification ASA Classification: 3 and E (Emergency evacuation of hematoma with airway compromise) Assessment & Plan Anesthesia* Anesthesia Assessment Anesthesia Assessment: Discussed sedation and/or anesthesia options, risks, benefits, and alternatives with patient/parents/legal guardian/POA. Questions invited. The patient/parents/legal guardian/POA seems to understand and agrees to proceed with anesthesia plan. Reviewed the physical assessment, medical history, allergy history and patient home medications list prior to surgery/procedure/anesthetic and documented any changes. Performed airway and anesthesia risk assessments. Procedural Plan Add'l anesthesia plan details: Maintain spontaneous ventilation with sedation until airway securement with ET tube Anesthesia Type Anesthesia Type: General History Source History Obtained from:: Patient, Chart and - (Surgeon) Anesthesia Focused Assessment* Temperature: 36.7 F Pulse Rate: 110 Blood Pressure: 131/81 Respiratory Rate: 12 Pulse Ox: 99 Oxygen Delivery Method: Non-Rebreather Oxygen Flow Rate (L/min): 10 Airway Assessment Mouth opens: 2 cm Mallampati Score: III Teeth Condition: Intact Neck Range of motion (ROM): Limited ROM Labs Anesthesia Preop lab: CBC WBC, (4.4-11.0) 18.3 K/mm3 H 01/18/25, 21:00 RBC, (4.6-6.2) 5.61 M/mm3 01/18/25, 21:00 Hgb, (13.0-16.5) 18.7 g/dL H* 01/18/25, 21:00 Hct, (40-54) 52.4 % 01/18/25, 21:00 Plt Count, (150-450) 218 K/mm3 01/18/25, 21:00 CHEMISTRY Potassium, (3.3-5.1) 4.9 mmol/L 01/18/25, 21:00 Sodium, (133-145) 138 mmol/L 01/18/25, 21:00 Magnesium, (1.5-2.2) 2.4 mg/dL H 01/16/25, 08:26 Phosphorus, (2.5-4.9) 2.8 mg/dL 01/07/22, 06:15 BUN, (4-19) 16 mg/dL 01/18/25, 21:00 Creatinine, (0.70-1.20) 1.00 mg/dL 01/18/25, 21:00 Glucose, (70-99) 167 mg/dL H 01/18/25, 21:00 POC Glucose, (74-106) 193 mg/dL H 01/18/25, 10:38 COAG PT, (11.7-14.9) 12.7 SECONDS 05/02/24, 01:33 Pre-Assessment Diagnosis/Proposed Procedure Planned Operative Procedure(s): Evacuation of neck hematoma Anesthesia History 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 When Was Last Pacemaker Check QUESTION #4 FULL TEXT: You/Your Family Experience fever (hyperthermia) with Anesthesia Last Oral Intake Last Oral intake: Last Oral Intake NPO since Meds taken in AM with sips of water? Meds patient instructed to take am of surgery PONV PONV - headrig sawyer: PONV - headrig sawyer Female HX of Motion Sickness HX of N/V After Surgery Non-Smoker Duration of Surgery greater than 60 minutes Number of Risk Factors PONV Score Height & Weight Height & Weight: Anesthesia: Height & Weight Height 5 ft 9 in 01/18/25 21:06 Weight: 91.531 kg 01/18/25 21:06 Body Mass Index (BMI) 29.7 01/18/25 21:06 Respiratory Assessment Respiratory Assessment - headrig sawyer: Respiratory Tract Infection Hx - headrig sawyer Hx Respiratory Tract Infection No 01/13/25 12:39 STOP Sleep Apnea STOP Sleep Apnea - headrig sawyer: STOP Sleep Apnea - headrig sawyer Hx Hypertension Yes 01/13/25 12:39 Hx Sleep Apnea No 01/13/25 12:39 CPAP BIPAP Do you snore loudly (louder than talking or can be heard Do you often feel tired/ fatigued/ sleepy during daytime? Has anyone observed you stop breathing during sleep? STOP Results QUESTION #5 FULL TEXT : Do you snore loudly (louder than talking or can be heard through closed doors)? Tobacco Use History Tobacco Use History - headrig sawyer: Tobacco Use History - headrig sawyer Tobacco Use Smoking Status Current every day smoker 01/18/25 21:06 Hx Tobacco Use Yes 01/13/25 12:39 Years Smoking Packs Smoked per Day Smoking Cessation Date was within the last 15 years Hx Smoking Cessation Date Hx Smoking Cessation No 01/18/25 21:06 Counseling Hematologic Medial History Hematologic Hx - headrig sawyer: Hematologic Medical Hx - community aide Hx of Blood Transfusion Hx of Transfusion in last 3 Months Date of Last Transfusion (if within last 3 months) Ever experience any problems with transfusion(s)? Specify any problems Hx of Preganancy in last 3 Months Nurse Filling Out Transfusion & Questions: Date: Time: Patient unable to answer at this time (ie. confused, unrespo /Reproduction History /Reproductive History - headrig sawyer: /Reproductive Hx- headrig sawyer Hx Now Gestational Age (in weeks): EDC: Hx Hx Para Hx Section SAB No 01/13/25 12:39 Active Medications Active Medications: Current Medications Generic Name Dose Route Start Last Admin Trade Name Freq PRN Reason Stop Dose Admin Dexamethasone Sodium Phosphate 10 mg 01/19/25 06:00 Dexamethasone 10 Mg/Ml Vial PO.IVFORM TID TAYLOR Hydralazine HCl 5 mg 01/19/25 02:17 Hydralazine 20 Mg/Ml Vial IV Q4H PRN PRN HTN Protocol Propofol 1,000 mg in 100 mls @ 5.492 mls/hr 01/19/25 02:10 Diprivan CONT INF .Q12H TAYLOR Protocol 10 MCG/KG/MIN Fentanyl 100 mls @ 2.5 mls/hr 01/19/25 02:10 CONT INF UD TAYLOR Protocol 25 MCG/HR Cefazolin Sodium 2 gm/ Sodium 110 mls @ 200 mls/hr 01/19/25 06:00 Chloride IV Q8 [facility] PFSH Medical History Obesity (BMI 30-39.9) Wears glasses History of steroid therapy Smoker Migraines Asthma Internal hemorrhage Hypertension Home Medications Medication Instructions Recorded Last Taken Type albuterol sulfate 90 mcg/actuation 2 puff inhalation Q4-6H PRN dyspnea 01/05/25 Unknown History aerosol inhaler gabapentin 300 mg capsule 300 mg PO BID #60 caps 01/05/25 Unknown Rx gabapentin 100 mg capsule 100 mg PO TID 01/11/25 Unknown History cephalexin 500 mg capsule 500 mg PO BID #6 caps 01/18/25 Unknown Rx dexamethasone 4 mg tablet 4 mg PO BID #5 tabs 01/18/25 Unknown Rx hydrocodone-acetaminophen 5-325mg 1 tab PO Q6H PRN pain 7 days #28 01/18/25 Unknown Rx 5mg-325mg tabs meloxicam 15 mg tablet 15 mg PO DAILY #30 tabs 01/18/25 Unknown Rx methocarbamol 500 mg tablet 750 mg (1.5 x 500 mg) PO TID PRN 01/18/25 Unknown Rx pain/spasms #30 tabs sennosides 8.6 mg capsule (senna) 8.6 mg PO BID PRN constipation #14 01/18/25 Unknown Rx caps Allergy/AdvReac Type Severity Reaction Status Date / Time No Known Allergies Allergy Verified 01/18/25 09:56 Family History Other Liver cancer Ovarian cancer Surgical History History of tonsillectomy History of appendectomy Social History household members: spouse Smoking Status: Current every day smoker tobacco type: cigarettes substance use type: does not use Addt'l Information Additional Findings: This is a delayed entry due to emergent situation. I was called by the surgeon regarding patient having a neck hematoma confirmed on CT scan and needed to come to the OR for evacuation of neck hematoma. The surgeon went to see the patient in the emergency department. I came to the hospital and called [facility] Regina Rodrigues which went immediately to the OR and prepared difficult intubation equipment and medications. I stayed in the phone communication with the surgeon and advised the patient should come to the OR for securing the airway if stable. The patient was saturation 100% on nonrebreather and able to speak full sentences. Upon arrival in OR the [facility]EN'S COUNSEL had gone to the emergency department per nurse supervising calling her. I went to emergency department and met there to the surgeon [facility] ED staff and the patient. The patient was saturation 100% sitting up speaking full sentences open the mouth. I advised the patient motion is stable enough to go to the operating room. Upon arrival in the OR patient was speaking full sentences saturating 100% on nonrebreather and stable vital signs. The surgeon prepared the neck for evacuation of hematoma prior to securing the airway. Sedation of Versed and remifentanil was started. The patient maintained spontaneous ventilation throughout this process. Saturation 100% throughout the process. Tolerated the minimal evacuation of hematoma by the surgeon. At that point we deepened the sedation with propofol and succinylcholine and secured to the airway with GlideScope with full visualization of vocal cords 1 trial easy intubation well vital signs stay stable and saturation was 99 to 100% throughout. Review of Systems (Anesthesia) ROS Narrative System reviewed and no additional complaints, except as documented.
--- NOTE | 2025-01-19 02:36 | PCM.POSTANE2 ---
Anesthesia Postop Eval I Sum Postop Eval Completion status Anesthesia document: Postop Eval 1 completed: Yes Anesthesia Postop Eval I Summary Anesthesia Postop Eval I Summary: Anesthesia Postop Eval I: Assessment Summary Airway patent Yes 01/19/25 02:30 Spontaneous unlabored Yes 01/19/25 02:30 respirations Mental status Calm - Sedated on 01/19/25 02:30 propofol infusion in ICU nausea No 01/19/25 02:30 Vomiting No 01/19/25 02:30 Anesthesia Postop Eval I: Fluid Summary Crystalloid volume administer 3,000 01/19/25 02:30 (ml) Colloids volume administered ( ml) Blood Product volume administered (ml) Total IV fluid infused 3,000 01/19/25 02:30 Anesthesia Postop Eval I: Summary Notes Anesthesia Complication No 01/19/25 02:30 Anesthesia Complication Comment: Post-operative progress note The patient was 01/19/25 02:30 transferred to the ICU in discussing with the surgeon for postop management. Stable on transport on sedation of propofol infusion. Report given at bedside in ICU with surgeon present nurse present respiratory therapist present. Vital signs stable. Patient sedated and intubated. On mechanical ventilation. Prior to transfer to ICU wake up test done. The patient opens eyes and following commands. Moving all extremities and squeezing hands bilaterally. Surgeon present on wake-up test. After the test sedated with propofol and transferred to ICU . Anesthesia: Postop Eval II Evaluation Mental status: Calm (Sedated in ICU) Pain Level: 1 nausea: No Vomiting: No Progress Note Post-operative progress note: Stable in the ICU report given at bedside. Complications Anesthesia Complication: No
--- NOTE | 2025-01-19 02:41 | NURSING ---
Received from OR at 0208. Patient arrived with OR nurse, anesthesiologist, Dr. Villagran. Propofol on admission at 80mcg/kg/min. Orders received verbal to place per Dr Villagran. Restraints placed on patient.
[2025-01-19 03:08] LABS: Base Excess -5 mmol/L (-2 to +2); FI02 30.0; PEEP 5; PO2 96 mmHG (75-100); RR 14; SITE Art Line; SO2 97 % (95-99)
--- NOTE | 2025-01-19 03:41 | RAD_ITS ---
PROCEDURE: CHEST 1 VIEW (PORTABLE) 01/19/2025 REASON FOR EXAM: INTUBATION TECHNIQUE: Frontal view of the chest. COMPARISON: None FINDINGS: The lungs are expanded. There is no demonstrated parenchymal abnormality. There is no demonstrated pleural abnormality. ETT is seen 5 cm away from the maxim. Normal heart and pericardium. Normal visualized aortic arch and descending thoracic aorta. No acute ribs abnormalities. There is no demonstrated abnormality of the visualized soft tissue structures of the upper abdomen. RAD/Chest 1 View (Portable) IMPRESSION: No acute cardiopulmonary process Reading [facility] [id number]
[2025-01-19 04:12] LABS: Triglycerides 123 mg/dL
--- NOTE | 2025-01-19 04:12 | CON.PCM.CC_ITS ---
HPI Consult Data Date of Consult: 01/19/25 HPI Narrative Reason for Consultation: Ventilator management HPI Narrative: This is a 45-year-old male with history of hypertension, asthma, migraines, tobacco use admitted to the ICU postoperatively after undergoing emergent evacuation of neck hematoma. Patient underwent C5-7 ACDF 01/18 and was subsequently able to be discharged home after surgery he returned to the ER with difficulty breathing and was found to have a neck hematoma. Under sedation intubation was attempted however he did require hematoma evacuation prior to successful intubation. Wake-up test was performed and he was able to move all 4 extremities but decision was made to leave him intubated postoperatively. Currently in the ICU he is intubated, sedated with propofol and fentanyl. Most recent labs significant for WBC 18, hemoglobin 18, ABG 7.33/28, serum bicarb 19, glucose 167. [facility] Medical History Obesity (BMI 30-39.9) Wears glasses History of steroid therapy Smoker Migraines Asthma Internal hemorrhage Hypertension Home Medications Medication Instructions Recorded Last Taken Type albuterol sulfate 90 mcg/actuation 2 puff inhalation Q 4-6H PRN dyspnea 01/05/25 Unknown History aerosol inhaler gabapentin 300 mg capsule 300 mg PO BID #60 caps 01/05 Unknown Rx gabapentin 100 mg capsule 100 mg PO TID 01/11/25 Unkno wn History cephalexin 500 mg capsule 500 mg PO BID #6 caps Unknown Rx dexamethasone 4 mg tablet 4 mg PO BID #5 tabs 01/18/25 Unknown Rx hydrocodone-acetaminophen 5-325mg 1 tab PO Q6H PRN anabell n 7 days #28 01/18/25 Unknown Rx 5mg-325mg tabs meloxicam 15 mg tablet 15 mg PO DAILY #30 tabs 01/04 08/28 Unknown Rx methocarbamol 500 mg tablet 750 mg (1.5 x 500 mg) PO T ID PRN 01/18/25 Unknown Rx pain/spasms #30 tabs sennosides 8.6 mg capsule (senna) 8.6 mg PO BID PRN co nstipation #14 01/18/25 Unknown Rx caps Allergy/AdvReac Type Severity Reaction Status Date / Time No Known Allergies Allergy Verified 01/18/25 09:56 Family History Other Liver cancer Ovarian cancer Surgical History History of tonsillectomy History of appendectomy Social History household members: spouse Smoking Status: Current every day smoker tobacco type: cigarettes substance use type: does not use ROS Review of Systems ROS Unobtainable: due to endotracheal tube Objective Data Objective Data Vital Signs: Vital Signs Last response 3 Temperature 36.8 C 01/19/25 04:00 Temperature Source Core 01/19/25 04:00 Pulse Rate 85 01/19/25 04:00 Respiratory Rate 14 01/19/25 04:00 Respiratory Pattern Normal 01/19/25 02:11 Blood Pressure 91/57 L 01/19/25 04:00 Blood Pressure Mean 68 01/19/25 04:00 Blood Pressure Source Arterial Line 01/19/25 04:00 Blood Pressure Position Supine 01/19/25 03:00 Blood Pressure Location Left Arm 01/19/25 04:00 Pulse Ox 97 01/19/25 04:00 Oxygen Delivery Method Mechanical Ventilator 01/19/25 04:00 Oxygen Flow Rate (L/min) 10 01/19/25 02:36 Fraction of Inspired Oxygen (FIO2) 30 01/19/25 04:00 Gen: Intubated, sedated Eyes: PERRL ENT: Orally intubated Neck:C-collar CV: S1S2 Pulm: Synced well on vent Abd: Soft Extrem: No c/c/e I&O: I&O Last 24 Hours 3 01/18/25 01/18/25 01/19/25 11:59 23:59 11:59 Intake Total 74.80 / 74.80 Output Total 100 / 100 Balance -25.20 / -25.20 I&O: Total Stay 3 01/18/25 20:51 thru 01/19/25 04:00 Intake Total 74.80 Output Total 100 Balance -25.20 Current Meds Ordered / Administered: Current meds ordered / Administered 3 Generic Name Dose Route Start Last Admin Trade Name Freq PRN Reason Stop Dose Admin Albuterol/Ipratropium 3 ml 01/19/25 03:58 Ipratropium/Albuterol Sulfate 3 Ml Ampul.Neb INHALATION Q4H.RT PRN wheezing Chlorhexidine Gluconate 15 ml 01/19/25 10:00 Chlorhexidine 15 Ml PO BID TAYLOR Dexamethasone Sodium Phosphate 10 mg 01/19/25 06:00 Dexamethasone 10 Mg/Ml Vial PO.IVFORM TID TAYLOR Glucagon 1 mg 01/19/25 04:01 Glucagon 1 Mg/Ml Syringe IM X1 PRN Hypoglycemia Protocol Hydralazine HCl 5 mg 01/19/25 02:17 Hydralazine 20 Mg/Ml Vial IV Q4H PRN PRN HTN Protocol Propofol 1,000 mg in 100 mls @ 5.492 mls/hr 01/19/25 02:10 01/19/25 04:00 Diprivan CONT INF 40 mcg/kg/min .Q12H TAYLOR 22 mls/hr Protocol Titration 10 MCG/KG/MIN Fentanyl 100 mls @ 2.5 mls/hr 01/19/25 02:10 01/19/25 04:00 CONT INF 125 mcg/hr UD TAYLOR 12.5 mls/hr Protocol Titration 25 MCG/HR Cefazolin Sodium 2 gm/ Sodium 110 mls @ 200 mls/hr 01/19/25 06:00 Chloride IV Q8 TAYLOR Sodium Chloride 250 mls @ 15 mls/hr 01/19/25 02:31 IV .[id number] PRN Saline Flush Sodium Chloride 250 mls @ 15 mls/hr 01/19/25 02:31 IV .[id number] PRN Additional IVPB Infusion Famotidine 20 mg/ Sodium 10 mls @ 300 mls/hr 01/19/25 10:00 Chloride IV Q12 TAYLOR Lactated Ringer's 1,000 mls @ 200 mls/hr 01/19/25 04:00 IV 01/19/25 08:59 .Q5H TAYLOR Dextrose 250 mls @ 0 mls/hr 01/19/25 04:01 Dextrose 10%-Water IV .Q0M PRN HYPOGLYCEMIA Protocol As Directed Insulin Human Lispro 0 unit 01/19/25 06:00 Insulin Lispro 100 Unit/Ml Insuln.Pen SC Q6 TAYLOR Protocol Sodium Chloride 10 - 40 ml 01/19/25 02:31 0.9% Saline Lock 10 Ml Syringe IV UD PRN SALINE FLUSH Lab / Micro Data 01/18/25 21:00 10/15/25 21:00 Labs: Laboratory Results - last 24 hr 01/18/25 21:00: WBC 18.3 H, RBC 5.61, Hgb 18.7 H*, Hct 52.4, MCV 93.4, MCH 33.3 H, MCHC 35.7, RDW Std Deviation 41.1, RDW Coeff of Sravani 12.0, Plt Count 218, MPV 10.8, Immature Gran % (Auto) 0.800, Neut % (Auto) 92.4 H, Lymph % (Auto) 4.7 L, Hartley % (Auto) 1.9, Eos % (Auto) 0.0, Baso % (Auto) 0.2, Absolute Neuts (auto) 16.9 H, Absolute Lymphs (auto) 0.87, Nucleated RBC % 0, Sodium 138, Potassium 4.9, Chloride 102, Carbon Dioxide 19.5 L, Anion Gap 16 H, BUN 16, Creatinine 1.00, Estim Creat Clear Calc 103.18, Est GFR (MDRD) Non-Af 94, BUN/Creatinine Ratio 16.2, Glucose 167 H, Calcium 9.5, Triglycerides 123 ABG Data ABG results: ABG 01/19/25 03:04 Specimen Type ART Sample Site Art Line pH 7.33 L Bicarbonate Actual 20.6 L Total CO2 22 Base Excess -5 L O2 Saturation 97 O2 % 30.0 ABG pCO2 38.7 ABG pO2 96 Yonathan Test N/A Respiration Rate 14 O2 Delivery Device Adult Vent Vent Mode AC Tidal Volume 500.0 POC PEEP 5 Imaging Radiology Impression Soft Tissue Neck CT 01/18/25 21:21 IMPRESSION: Postop changes of C5-C7 ACDF. Large heterogeneous fluid/hematoma collection within the surgical bed tracking along the prevertebral soft tissues and into the upper mediastinum with scattered soft tissue air, much more than typically expected postoperatively. There is a small blush of contrast extravasation concerning for active bleeding within the left paramidline prevertebral soft tissues at the C7 level. Mass-effect with on the adjacent airway with anterior right displacement but without substantial narrowing. Recommend surgical consultation. Findings communicated via telephone with provider Junior Johnson 01/18/2025 at 9:[address] TECHNICIAN, with read back verification. Reading Location: [facility] Chest X-Ray 01/18/25 22:26 IMPRESSION: No acute cardiopulmonary disease. Reading Location: [id number] Assessment and Plan . Assessment and plan: ASSESSMENT # Acute respiratory failure # Airway impingement by hematoma # Postoperative neck hematoma status postevacuation # Metabolic acidosis # Leukocytosis PLAN - Ventilator reviewed - Propofol and fentanyl for sedation - LR 200 cc an hour x 1 L - Repeat labs in a.m. - Insulin sliding scale Prophylaxis: SCDs, Pepcid Entire encounter performed via telemedicine Critical care time 60 minutes.
[2025-01-19] MEDS: Propofol 10MG/Ml 1,000 MG/100 ML Bottle 22 MG CONT INF ×2 (04:26→07:56)
[2025-01-19] MEDS: Lactated Ringers 1,000 ML 200 ML IV (04:40)
[2025-01-19] MEDS: Cefazolin 2 GM in 0.9% Normal Saline (100mL Bag) 100 ML IV ×3 (06:28→21:10)
[2025-01-19 06:47] LABS: Hematocrit 39.3 % (40-54); Hemoglobin 13.8 g/dL (13.0-16.5); Immature Granulocytes Count 0.080 X10^3/uL (0.0-0.0); Mean Corp Hgb Conc 35.1 g/dL (32-36); Mean Corpuscular Volume 96.1 fL (80-94); Mean Platelet Vol. 10.7 fl (6.2-12.0); NRBC Flagged by Analyzer 0 % (0-5); Platelet Count 197 K/mm3 (150-450); RBC Distribution Width CV 12.0 % (11.6-14.6); RBC Distribution Width SD 42.0 fl (35.1-43.9); Red Blood Count 4.09 M/mm3 (4.6-6.2); White Blood Count 16.5 K/mm3 (4.4-11.0)
[2025-01-19 07:01] LABS: Prothrombin Time (Protime)PT. 13.5 SECONDS (11.7-14.9)
[2025-01-19 07:06] LABS: AST(SGOT) 21 U/L (<=37); Alanine Aminotransfer ALT/SGPT 30 U/L (<=46); Albumin, Serum 3.7 g/dL (3.5-5.0); Alkaline Phosphatase 41 U/L (40-129); Anion Gap 9 (5-15); BUN 13 mg/dL (4-19); BUN/Creat Ratio 14.7 RATIO (10-20); Calcium,Total 8.3 mg/dL (7.6-11.0); Carbon Dioxide 24.8 mmol/L (21.0-32.0); Chloride 106 mmol/L (98-108); Estimated Creatinine Clearance 122.54 ml/min (50-250); Globulin 1.9 g/dL (2.2-4.2); Glucose 144 mg/dL (70-99); Magnesium 1.9 mg/dL (1.5-2.2); Potassium 4.4 mmol/L (3.3-5.1)
[2025-01-19 07:17] LABS: Base Excess 2 mmol/L (-2 to +2); FI02 30.0; PEEP 5; PO2 91 mmHG (75-100); RR 14; SITE Art Line; SO2 98 % (95-99)
[2025-01-19 07:26] LABS: CPK Total, Creatine Kinase 254 U/L (24-195)
[2025-01-19] MEDS: fentaNYL drip 100 ML 17.5 MCG CONT INF (07:26)
[2025-01-19] MEDS: Chlorhexidine 15 ML PO ×2 (08:10→20:57)
--- NOTE | 2025-01-19 09:45 | CASEMGMT ---
Social Work- SW received notice from bedside nurse that pt has not been taking hyertensive medications due to cost. SW provided printables for Prescription [employer], [employer], [facility], Penelope Schroeder, prescription drug assistance program list; pt father in room currently. Gavinostefani is reportedly coming in later; ANOOP remains available to follow. DIMA Novak
[2025-01-19] MEDS: Famotidine 200 MG/20 ML MDV 20 MG in 0.9% Normal Saline (Pres. free 8 ML 300 MG IV ×2 (10:29→21:06)
[2025-01-19] MEDS: 0.9% Saline Lock 10 ML Syringe IV ×3 (10:34→21:06)
[2025-01-19] MEDS: Propofol 10MG/Ml 1,000 MG/100 ML Bottle 19.2 MG CONT INF (12:07)
[2025-01-19] MEDS: fentaNYL drip 100 ML 20 MCG CONT INF ×3 (12:32→22:53)
--- NOTE | 2025-01-19 12:45 | CASEMGMT ---
ABHINAV CRUZ Assessment Pt is currently intubated. ABHINAV CRUZ met with significant other, Kristy, father, and mother for initial transition planning/care coordination assessment. ABHINAV CRUZ introduced self and role at [facility]. Care providers, pharmacy, and demographics verified/updated. Strata: 2 PCP: Makeda Hawkins NP Specialists: Dr Griffin Preferred Pharmacy: [facility] Insurance: [employer] & [employer] is listed on pt's demographics. Kristy states they received a notice stating [employer] was going to be ending. Call placed to registration who verifies [employer] is still eligible. Prescription Benefit: yes LW/HPOA: Kristy states pt has not completed these, but states she is sure pt will want to complete HCPOA once he has been extubated. ANOOP, Jenna, made aware. LNOK: Pt has 6 children. 3 of them are adults. One adult daughter is Kenisha, who lives in [place]. Kristy and pt's parents do not have her phone #, but they state it will be in pt's cell phone, which Kristy states is @ their home. She states she is not sure if anyone has the other 2 adult children's #'s. Adalid and Terra Mclean, parents; Kristy Espinoza sig other. Living Arrangements: Pt lives with sig other and their 8 month-old child in a mobile home with 4-5 steps to enter. Pt is independent. Transportation: Kristy transports him to medical appts. DME: Pt has crutches available at home. He also has an inhaler. HHC/SNF: No hx of either. Discharge plans discussed. Kristy and parents do not anticipate pt will have any discharge needs. CM to follow-up w/pt once he is extubated. Plan: TBD, anticipate home w/no needs. CM to follow-up w/pt once he is extubated. Carter ZARATE RN, CM
[2025-01-19] MEDS: 0.9% Normal Saline (250mL Bag) 250 ML 15 ML IV (13:26)
[2025-01-19] MEDS: dexMEDEtomidine 400 MCG in 0.9% Normal Saline (100mL Bag) 96 ML 11.7 MCG CONT INF (13:33)
[2025-01-19] MEDS: Norepinephrine 8 MG in 0.9% Normal Saline (250mL Bag) 242 ML 9.4 MG CONT INF (14:43)
--- NOTE | 2025-01-19 16:02 | PN.ORTHO_ITS ---
Subjective Subjective Patient is postop day 1 C5-7 ACDF with subsequent hematoma evacuation done earlier this morning 01/19/[address] Villagran. Patient went to the ER late Thursday01/18/25 with shortness of breath. The patient has remained intubated following the hematoma evacuation. The patient has a drain which has shown 45 cc drainage overnight, an additional 20 cc of drainage collected during the day today. No significant drainage from the incision. Patient's blood pressures remained stable. The patient has been agitated and tries to sit up and move all 4 extremities. Whenever further sedation has been tried to be given the patient's blood pressure lowers. Seen with Dr. Villagran Objective Data Objective Data Vital Signs: Vital Signs Temp Pulse Resp BP Pulse Ox O2 Del Method O2 Flow Rate 98.8 F 53 L 14 134/71 H 100 Mechanical Ventilator 10 01/19/25 15:00 01/19/25 15:00 01/19/25 15:00 01/19/25 15:00 01/19/25 15:00 01/19/25 15:00 01/19/25 02:36 FiO2 30 01/19/25 15:00 Oxygen Flow Rate (L/min) 10 Oxygen Delivery Method Mechanical Ventilator Weight: 205 lb 14.588 oz Body Mass Index (BMI) 29.7 Intake & Output: Intake and Output for Last 24 Hours 01/17/25 01/18/25 01/19/25 23:59 23:59 23:59 Intake Total 1741.21 / 1741.21 Output Total 1765 / 1765 Balance -23.79 / -23.79 Lab / Micro Data 01/19/25 06:36 01/19/25 06:36 Labs: Laboratory Results - last 24 hr 01/18/25 21:00: WBC 18.3 H, RBC 5.61, Hgb 18.7 H*, Hct 52.4, MCV 93.4, MCH 33.3 H, MCHC 35.7, RDW Std Deviation 41.1, RDW Coeff of Sravani 12.0, Plt Count 218, MPV 10.8, Immature Gran % (Auto) 0.800, Neut % (Auto) 92.4 H, Lymph % (Auto) 4.7 L, [place] % (Auto) 1.9, Eos % (Auto) 0.0, Baso % (Auto) 0.2, Absolute Neuts (auto) 16.9 H, Absolute Lymphs (auto) 0.87, Nucleated RBC % 0, Sodium 138, Potassium 4.9, Chloride 102, Carbon Dioxide 19.5 L, Anion Gap 16 H, BUN 16, Creatinine 1.00, Estim Creat Clear Calc 103.18, Est GFR (MDRD) Non-Af 94, BUN/Creatinine Ratio 16.2, Glucose 167 H, Calcium 9.5, Total Creatine Kinase Cancelled, Triglycerides 123 01/19/25 06:34: POC Glucose 121 H 01/19/25 06:36: WBC 16.5 H, RBC 4.09 L, Hgb 13.8, Hct 39.3 L, MCV 96.1 H, MCH 33.7 H, MCHC 35.1, RDW Std Deviation 42.0, RDW Coeff of Sravani 12.0, Plt Count 197, MPV 10.7, Immature Gran % (Auto) 0.500, Neut % (Auto) 88.5 H, Lymph % (Auto) 6.8 L, [place] % (Auto) 3.9, Eos % (Auto) 0.1, Baso % (Auto) 0.2, Absolute Neuts (auto) 14.6 H, Absolute Lymphs (auto) 1.12, Nucleated RBC % 0, PT 13.5, INR 1.0, Sodium 140, Potassium 4.4, Chloride 106, Carbon Dioxide 24.8, Anion Gap 9, BUN 13, Creatinine 0.85, Estim Creat Clear Calc 122.54, Est GFR (MDRD) Non-Af 108, BUN/Creatinine Ratio 14.7, Glucose 144 H, Calcium 8.3, Phosphorus 3.1, Magnesium 1.9, Total Bilirubin 0.51, AST 21, ALT 30, Alkaline Phosphatase 41, Total Creatine Kinase 254 H, Total Protein 5.5 L, Albumin 3.7, Globulin 1.9 L, Albumin/Globulin Ratio 2.0 01/19/25 11:16: POC Glucose 130 H ABG Data ABG results: ABG 01/19/25 01/19/25 03:04 07:14 Specimen Type ART ART Sample Site Art Line Art Line pH 7.33 L 7.48 H Bicarbonate Actual 20.6 L 25.9 Total CO2 22 27 Base Excess -5 L 2 O2 Saturation 97 98 O2 % 30.0 30.0 ABG pCO2 38.7 34.6 L ABG pO2 96 91 Yonathan Test N/A Respiration Rate 14 14 O2 Delivery Device Adult Vent ET Tube Vent Mode AC AC Tidal Volume 500.0 500.0 POC PEEP 5 5 Radiography Diagnostic Testing: Radiology Impression Soft Tissue Neck CT 01/18/25 21:21 IMPRESSION: Postop changes of C5-C7 ACDF. Large heterogeneous fluid/hematoma collection within the surgical bed tracking along the prevertebral soft tissues and into the upper mediastinum with scattered soft tissue air, much more than typically expected postoperatively. There is a small blush of contrast extravasation concerning for active bleeding within the left paramidline prevertebral soft tissues at the C7 level. Mass-effect with on the adjacent airway with anterior right displacement but without substantial narrowing. Recommend surgical consultation. Findings communicated via telephone with provider Junior Johnson 01/18/2025 at 9:45 p.m. [employer], with read back verification. Reading Location: [facility], [place] Chest X-Ray 01/18/25 22:26 IMPRESSION: No acute cardiopulmonary disease. Reading Location: [id number] Chest X-Ray 01/19/25 03:41 IMPRESSION: No acute cardiopulmonary process Reading Location: [place] [id number] Physical Exam Narrative Patient intubated. Movement in all 4 extremities. Surgical dressing CDI. Assessment & Plan Assessment/Plan (1) Status post cervical spinal fusion: (2) Postoperative hematoma: PLAN: Plan Plan is for extubation tomorrow per mapping analyst. Continue steroid taper per mapping analyst. Continue antibiotics. Following extubation the patient may be moved out of the ICU. Dr. Villagran spoke with the patient's family today. All questions were answered today. Plan is for discharge home when medically cleared.
--- NOTE | 2025-01-19 18:07 | PN.HOSP_ITS ---
Subjective Subjective Patient was seen and examined today, he remains on the ventilator, I talked briefly with critical care about his care Objective Data Objective Data Vital Signs: Vital Signs Temp Pulse Resp BP Pulse Ox O2 Del Method O2 Flow Rate 99.6 F H 66 14 106/58 L 97 Mechanical Ventilator 10 01/19/25 18:00 01/19/25 18:00 01/19/25 18:00 01/19/25 18:00 01/19/25 18:00 01/19/25 18:00 01/19/25 02:36 FiO2 30 01/19/25 18:00 Oxygen Flow Rate (L/min) 10 Oxygen Delivery Method Mechanical Ventilator Weight: 93.4 kg Body Mass Index (BMI) 29.7 Intake & Output: Intake and Output for Last 24 Hours 01/17/25 01/18/25 01/19/25 23:59 23:59 23:59 Intake Total 1865.58 / 1865.58 Output Total 2215 / 2215 Balance -349.42 / -349.42 Lab / Micro Data 01/19/25 06:36 01/19/25 06:36 Labs: Laboratory Results - last 24 hr 01/18/25 21:00: WBC 18.3 H, RBC 5.61, Hgb 18.7 H*, Hct 52.4, MCV 93.4, MCH 33.3 H, MCHC 35.7, RDW Std Deviation 41.1, RDW Coeff of Sravani 12.0, Plt Count 218, MPV 10.8, Immature Gran % (Auto) 0.800, Neut % (Auto) 92.4 H, Lymph % (Auto) 4.7 L, [place] % (Auto) 1.9, Eos % (Auto) 0.0, Baso % (Auto) 0.2, Absolute Neuts (auto) 16.9 H, Absolute Lymphs (auto) 0.87, Nucleated RBC % 0, Sodium 138, Potassium 4.9, Chloride 102, Carbon Dioxide 19.5 L, Anion Gap 16 H, BUN 16, Creatinine 1.00, Estim Creat Clear Calc 103.18, Est GFR (MDRD) Non-Af 94, BUN/Creatinine Ratio 16.2, Glucose 167 H, Calcium 9.5, Total Creatine Kinase Cancelled, Triglycerides 123 01/19/25 06:34: POC Glucose 121 H 01/19/25 06:36: WBC 16.5 H, RBC 4.09 L, Hgb 13.8, Hct 39.3 L, MCV 96.1 H, MCH 33.7 H, MCHC 35.1, RDW Std Deviation 42.0, RDW Coeff of Sravani 12.0, Plt Count 197, MPV 10.7, Immature Gran % (Auto) 0.500, Neut % (Auto) 88.5 H, Lymph % (Auto) 6.8 L, [place] % (Auto) 3.9, Eos % (Auto) 0.1, Baso % (Auto) 0.2, Absolute Neuts (auto) 14.6 H, Absolute Lymphs (auto) 1.12, Nucleated RBC % 0, PT 13.5, INR 1.0, Sodium 140, Potassium 4.4, Chloride 106, Carbon Dioxide 24.8, Anion Gap 9, BUN 13, Creatinine 0.85, Estim Creat Clear Calc 122.54, Est GFR (MDRD) Non-Af 108, BUN/Creatinine Ratio 14.7, Glucose 144 H, Calcium 8.3, Phosphorus 3.1, Magnesium 1.9, Total Bilirubin 0.51, AST 21, ALT 30, Alkaline Phosphatase 41, Total Creatine Kinase 254 H, Total Protein 5.5 L, Albumin 3.7, Globulin 1.9 L, Albumin/Globulin Ratio 2.0 01/19/25 11:16: POC Glucose 130 H 01/19/25 17:44: POC Glucose 143 H ABG Data ABG results: ABG 01/19/25 01/19/25 03:04 07:14 Specimen Type ART ART Sample Site Art Line Art Line pH 7.33 L 7.48 H Bicarbonate Actual 20.6 L 25.9 Total CO2 22 27 Base Excess -5 L 2 O2 Saturation 97 98 O2 % 30.0 30.0 ABG pCO2 38.7 34.6 L ABG pO2 96 91 Yonathan Test N/A Respiration Rate 14 14 O2 Delivery Device Adult Vent ET Tube Vent Mode AC AC Tidal Volume 500.0 500.0 POC PEEP 5 5 Radiography Diagnostic Testing: Radiology Impression Soft Tissue Neck CT 01/18/25 21:21 IMPRESSION: Postop changes of C5-C7 ACDF. Large heterogeneous fluid/hematoma collection within the surgical bed tracking along the prevertebral soft tissues and into the upper mediastinum with scattered soft tissue air, much more than typically expected postoperatively. There is a small blush of contrast extravasation concerning for active bleeding within the left paramidline prevertebral soft tissues at the C7 level. Mass-effect with on the adjacent airway with anterior right displacement but without substantial narrowing. Recommend surgical consultation. Findings communicated via telephone with provider Junior Johnson 01/18/2025 at 9:45 p.m. [employer], with read back verification. Reading Location: [id number] Chest X-Ray 01/18/25 22:26 IMPRESSION: No acute cardiopulmonary disease. Reading Location: [id number] Chest X-Ray 01/19/25 03:41 IMPRESSION: No acute cardiopulmonary process Reading Location: [place] [address] Physical Exam Const healthy appearing Constitutional Narrative: Patient is sedated and on the ventilator General Appearance: well kempt and well developed HEENT normocephalic, head/scalp atraumatic and moist oral mucous membranes Eyes PERRL, EOMs intact bilaterally and conjunctivae normal Neck no JVD General: trachea midline Resp normal respiratory effort, no retractions and clear to auscultation bilaterally Auscultation: Negative for rales, rhonchi or wheezes Cardio regular rate, regular rhythm, S1 normal heart sound, S2 normal heart sound, no murmurs, no rub and no gallops GI normal to inspection, nondistended, normoactive bowel sounds, soft to palpation, non-tender and non-distended Extremity no clubbing, cyanosis or edema Skin no rashes or lesions noted General Skin Exam: no breakdown Neuro CN's II-XII intact bilaterally Neuro Narrative: Patient was sedated and on the ventilator Psych Psych Narrative: Patient is sedated and on the ventilator Assessment & Plan Assessment/Plan (1) Postoperative hematoma: PLAN: Plan 1. Acute respiratory failure secondary to airway impingement due to postop hematoma-patient appears stable on the ventilator at this time, he is under sedation. #2 degenerative joint disease of the cervical spine-status post cervical spinal fusion-spinal surgery is participating in his care #3 distributive shock-patient is on a low-dose of pressors at this time, nursing was unable to wean off the pressors, an attempt will be made tomorrow to discontinue them again. #4 postop hematoma of the neck-CBC will be repeated tomorrow Blood sugars are being monitored, sliding scale insulin will be used if necessary Total clinical time spent by myself addressing the patient's medical issues, reviewing all of his data, and collaborating with the patient's care team: 35 minutes Charges/Coding Visit Charges Inpatient E&M: 34319 Subs Hosp L2
--- NOTE | 2025-01-19 18:25 | RAD_ITS ---
PROCEDURE: CHEST 1 VIEW (PORTABLE) 01/19/2025 REASON FOR EXAM: WIDENED MEDIASTINUM TECHNIQUE: Frontal view of the chest. COMPARISON: Earlier same day 01/19/2025, 01/18/2025. FINDINGS: Endotracheal tube in stable positioning, tip roughly 6 cm above the maxim. Clear lungs and pleura. Cardiac silhouette appears normal in size. There is widening of the upper mediastinum which has developed as of 01/18/2025-01/19/2025 in comparison with prior exams, and likely reflects the aforementioned large prevertebral postoperative hematoma related to recent ACDF. RAD/Chest 1 View (Portable) IMPRESSION: No acute cardiopulmonary disease. Endotracheal tube in stable position. Widening of the upper mediastinum, new since 01/18/2025; this is likely related to the aforementioned large postoperative prevertebral hematoma collection status post recent ACDF. See recent prior nec k CT report from 01/18/2025 for further details. Reading Location: [id number]
[2025-01-19] MEDS: dexMEDEtomidine 400 MCG in 0.9% Normal Saline (100mL Bag) 96 ML 18.7 MCG CONT INF (18:27)
--- NOTE | 2025-01-19 18:27 | CT_ITS ---
PROCEDURE: CTA CHEST W/WO CONTRAST 01/19/2025 REASON FOR EXAM: WIDENED MEDIATINUM WITH 5 GM DROP IN HGB TECHNIQUE: Procedure Code: [id number] Modality: CT Procedure: CTA CHEST W/WO CONTRAST Multiplanar Sagittal and Coronal images were obtained. One or more dose reduction techniques were used (e.g., Automated exposure control, adjustment of the mA and/or kV according to patient size, use of iterative reconstruction technique). COMPARISON: 01/18/2025. FINDINGS: Ill-defined heterogeneity of the upper mediastinum which is new since the 12/16/2024 CT and measures 8.5 x 3.7 cm in overall extent. Previously 4.8 x 2.7 cm. But is poorly delineated the visualized upper abdomen is unremarkable. Flecks of soft tissue air within the partially visualized lower neck. Skin angie and fat stranding of the upper neck. Endotracheal tube terminates just below the clavicular heads. No pulmonary artery filling defects. Small bilateral pleural effusions. Bilateral lower lobe dependent densities with attenuation greater than paraspinal musculature favoring atelectasis. C5 through C7 ACDF with widening of the associated prevertebral soft tissues. CT/CTA Chest W/WO Contrast IMPRESSION: Ill-defined 8.5 x 3.7 cm heterogeneous soft tissue within the upper mediastinum , which appears larger than the prior study. This may represent a hematoma that is increasing in size. Associated prevertebral soft tissue thickening and fat stranding in the lower n rj with skin angie and soft tissue air, consistent with recent postoperative change. No evidence of pulmonary embolism or aortic dissection. Small bilateral pleural effusions and dependent bilateral lower lobe atelectasi s. C5-C7 ACDF hardware in place with widening of the adjacent prevertebral soft ti ssues, likely reactive or postoperative. Correlation with operative history and surgical site evaluation is recommended to exclude active bleeding or infection. Critical results communicated to Dr. Camacho at 7 p.m.. Reading Location: [address]
--- NOTE | 2025-01-19 18:29 | PCM.PN.BLA ---
Progress Note Notified by the nurse practitioner on-call that she was reviewing her chart and noticed that this patient had what appeared to be a wide mediastinum. He had a cervical hematoma and surgery yesterday and medicine was consulted, currently intubated in the ICU. On my evaluation of chest x-rays before and after surgery his mediastinum was 7 cm and now measures at 11 cm so we will obtain a CTA of the chest as he is hemoglobin has also gone from 18 down to 13. He does appear hemodynamically stable currently on minimal Levophed.
[2025-01-19 18:49] LABS: Hematocrit 38.4 % (40-54); Hemoglobin 13.4 g/dL (13.0-16.5)
--- NOTE | 2025-01-19 18:50 | NURSING ---
TANA Page notified this RN of results of CXR from this am appearing with widened mediastinum and to feel for crepitus and look for increased swelling. This RN noted no crepitus and no increased swelling. TANA Page notified Dr. Nguyen who then ordered stat CT scan. Stat CBC and CXR also completed.
--- NOTE | 2025-01-19 20:55 | PCM.HOSP.N ---
Hospitalist Note Reviewed STAT Chest CT w/wo contrast results with ordering consulted provider, ; repeat plain CT to be performed in AM. notified of results by radiologist per radiologist documentation at 1900. Via Backline communication, I informed of current hgb, plans to repeat H/H at midnight for monitoring purposes. I inquired about possible plans for additional drain placement into the mediastinum, waiting for response. [id number]-Notified of all testing, plans and communications with primary.
[2025-01-19] MEDS: dexMEDEtomidine 400 MCG in 0.9% Normal Saline (100mL Bag) 96 ML 21 MCG CONT INF (23:32)
[2025-01-20] VITALS (39 sets, daily range): BP systolic 95–209; BP diastolic 65–139; PULSE 55–122; RESP 6–22; TEMP 36.9–37.3; O2SAT 21–99
[2025-01-20 00:28] LABS: Hematocrit 37.8 % (40-54); Hemoglobin 13.4 g/dL (13.0-16.5)
[2025-01-20] MEDS: fentaNYL drip 100 ML 20 MCG CONT INF (04:00)
[2025-01-20] MEDS: dexMEDEtomidine 400 MCG in 0.9% Normal Saline (100mL Bag) 96 ML 23.4 MCG CONT INF (04:15)
[2025-01-20 04:51] LABS: Hematocrit 37.5 % (40-54); Hemoglobin 13.1 g/dL (13.0-16.5); Immature Granulocytes Count 0.090 X10^3/uL (0.0-0.0); Mean Corp Hgb Conc 34.9 g/dL (32-36); Mean Corpuscular Volume 95.7 fL (80-94); Mean Platelet Vol. 10.9 fl (6.2-12.0); NRBC Flagged by Analyzer 0 % (0-5); Platelet Count 166 K/mm3 (150-450); RBC Distribution Width CV 11.9 % (11.6-14.6); RBC Distribution Width SD 41.4 fl (35.1-43.9); Red Blood Count 3.92 M/mm3 (4.6-6.2); White Blood Count 14.6 K/mm3 (4.4-11.0)
[2025-01-20] MEDS: 0.9% Saline Lock 10 ML Syringe IV ×6 (05:28→21:02)
[2025-01-20 05:36] LABS: Anion Gap 9 (5-15); BUN 17 mg/dL (4-19); BUN/Creat Ratio 21.4 RATIO (10-20); Calcium,Total 8.5 mg/dL (7.6-11.0); Carbon Dioxide 22.7 mmol/L (21.0-32.0); Chloride 107 mmol/L (98-108); Estimated Creatinine Clearance 128.59 ml/min (50-250); Glucose 147 mg/dL (70-99); Potassium 4.3 mmol/L (3.3-5.1)
[2025-01-20] MEDS: Cefazolin 2 GM in 0.9% Normal Saline (100mL Bag) 100 ML IV ×3 (05:41→21:02)
--- NOTE | 2025-01-20 05:55 | CT_ITS ---
PROCEDURE: CHEST WITHOUT CONTRAST 01/20/2025 REASON FOR EXAM: WIDENED MEDIASTINUM FOLLOW-UP TECHNIQUE: Chest CT without contrast. Coronal and Sagittal reconstruction series were provided. One or more dose reduction techniques were used (e.g., Automated exposure control, adjustment of the mA and/or kV according to patient size, use of iterative reconstruction technique RADIATION DOSE SUMMARY: CTDlvol: 19.87 mGy DLP: 759 mGycm COMPARISON: CT scan on 01/19/2025. FINDINGS: Unchanged 8.5 x 3.7 cm mediastinal hematoma. Unchanged prevertebral soft tissue thickening and fat stranding in the lower neck. Unchanged small bilateral pleural effusions and bilateral basilar atelectatic airspace disease of the lower lobes. Endotracheal tube is in good position. Surgical changes of the neck, unchanged. ACDF from C5-C7, unchanged. Normal unenhanced main pulmonary artery and right and left pulmonary arteries. Normal bilateral peripheral pulmonary arteries. Normal thoracic aorta and visualized great vessels. There is no demonstrated aortic aneurysm. Normal heart and pericardium. Normal visualized trachea and bronchi. CT/Chest without Contrast IMPRESSION: Coronary artery calcification (CAC) is is absent Unchanged 8.5 x 3.7 cm mediastinal hematoma. Unchanged prevertebral soft tissue thickening and fat stranding in the lower ne ck. Unchanged small bilateral pleural effusions and bilateral basilar atelectatic a irspace disease of the lower lobes. Endotracheal tube is in good position. Surgical changes of the neck, unchanged. ACDF from C5-C7, unchanged. Reading Location: [place] [address]
[2025-01-20] MEDS: Famotidine 200 MG/20 ML MDV 20 MG in 0.9% Normal Saline (Pres. free 8 ML 300 MG IV ×2 (07:30→21:02)
[2025-01-20] MEDS: Chlorhexidine 15 ML PO (07:30)
--- NOTE | 2025-01-20 07:34 | PCM.PN.INT ---
Assessment & Plan Assessment/Plan (1) Postoperative hematoma: QUALIFIERS: Procedure type: non-dermatologic Surgical complication system/body Area: subcutaneous tissue Qualified Code(s): L76.32 - Postprocedural hematoma of skin and subcutaneous tissue following other procedure PLAN: Plan RECOMMENDATIONS: 1. Proceed with spontaneous awakening and breathing trial this morning. Tentative plans for extubation, if the patient does well. 2. Continue to monitor blood counts daily. 3. Continue steroids until tomorrow. 4. Continue appropriate GI prophylaxis. IMPRESSIONS: 1. Acute hypoxemic respiratory failure Secondary to postoperative hematoma leading to airway compromise and need for intubation. The patient had undergone a C5-7 ACDF earlier in the day and developed a postoperative hematoma, which required surgical drainage. The patient was intubated as a consequence of the aforementioned. However, with supportive care, including corticosteroids, the patient has improved from a respiratory perspective. Will plan to place his sedation on hold this morning and proceed with a spontaneous awakening and breathing trial to assess his readiness for extubation. While the patient does have evidence of a mediastinal hematoma, it does not appear to be compromising his respiratory mechanics at all. His hemoglobin and hemodynamic status are stable. Recommend continuing to monitor blood counts daily. There is no indication for transfusion of blood products. TIME: 35 minutes of critical care time, independent of procedures, was spent addressing the patient's acute respiratory failure, postoperative hematoma, review of all data and collaboration with the care team. Subjective Subjective The patient was seen and examined at the bedside this morning. Events from the last 24 hours have been reviewed. The patient is currently afebrile, hemodynamically stable and maintaining appropriate oxygen saturations on assist-control mode of mechanical ventilation with an FiO2 requirement of 30% and PEEP of 5. Over concerns for a widened mediastinum noted on chest x-ray, the patient underwent a CTA of her chest last evening, which demonstrated a mediastinal hematoma. The patient was noted to have a hemoglobin drop from 18.7 g/dL to 13.8 g/dL. However, the patient's hemoglobin has remained stable since yesterday. Repeat CT chest from this morning again demonstrated a stable mediastinal hematoma. Although the patient was transiently on Levophed yesterday as a consequence of his sedation, he has been weaned off of Levophed since last evening. He is currently sedated on Precedex and fentanyl. He is alert and able to follow commands appropriately. I did discuss the patient's care with Dr. Villagran, who indicated that he was in agreement to proceed with spontaneous awakening and breathing trials. Objective Data Objective Data The patient's most recent lab work, culture data and imaging studies have all been personally reviewed. Vital Signs: Vital Signs Temp Pulse Resp BP Pulse Ox O2 Del Method O2 Flow Rate 99 F 63 14 128/89 H 94 Nasal Cannula 10 01/20/25 06:00 01/20/25 07:00 01/20/25 07:00 01/20/25 07:00 01/20/25 07:00 01/20/25 07:00 01/19/25 02:36 FiO2 30 01/20/25 07:00 Oxygen Flow Rate (L/min) 10 Oxygen Delivery Method Nasal Cannula Weight: 203 lb 11.314 oz Body Mass Index (BMI) 30.0 Intake & Output: Intake and Output for Last 24 Hours 01/18/25 01/19/25 01/20/25 23:59 23:59 23:59 Intake Total 2277.58 / 2302.83 420.12 / 420.12 Output Total 2625 / 2625 465 / 465 Balance -347.42 / -322.17 -44.88 / -44.88 Lab / Micro Data Attestation: I reviewed the patient's lab results. 01/20/25 04:43 01/20/25 04:43 Labs: Laboratory Results - last 24 hr 01/19/25 11:16: POC Glucose 130 H 01/19/25 17:44: POC Glucose 143 H 01/19/25 18:30: Hgb 13.4, Hct 38.4 L 01/19/25 23:50: Hgb 13.4, Hct 37.8 L 01/19/25 23:54: POC Glucose 130 H 01/20/25 04:43: WBC 14.6 H, RBC 3.92 L, Hgb 13.1, Hct 37.5 L, MCV 95.7 H, MCH 33.4 H, MCHC 34.9, RDW Std Deviation 41.4, RDW Coeff of Sravani 11.9, Plt Count 166, MPV 10.9, Immature Gran % (Auto) 0.600, Neut % (Auto) 86.9 H, Lymph % (Auto) 7.5 L, [place] % (Auto) 4.9, Eos % (Auto) 0.0, Baso % (Auto) 0.1, Absolute Neuts (auto) 12.7 H, Absolute Lymphs (auto) 1.09, Nucleated RBC % 0, Sodium 138, Potassium 4.3, Chloride 107, Carbon Dioxide 22.7, Anion Gap 9, BUN 17, Creatinine 0.81, Estim Creat Clear Calc 128.59, Est GFR (MDRD) Non-Af 110, BUN/Creatinine Ratio 21.4 H, Glucose 147 H, Calcium 8.5 Radiography Diagnostic Testing: Radiology Impression Chest X-Ray 01/19/25 18:25 IMPRESSION: No acute cardiopulmonary disease. Endotracheal tube in stable position. Widening of the upper mediastinum, new since 01/18/2025; this is likely related to the aforementioned large postoperative prevertebral hematoma collection status post recent ACDF. See recent prior neck CT report from 01/18/2025 for further details. Reading Location: [facility] Chest CTA 01/19/25 18:27 IMPRESSION: Ill-defined 8.5 x 3.7 cm heterogeneous soft tissue within the upper mediastinum, which appears larger than the prior study. This may represent a hematoma that is increasing in size. Associated prevertebral soft tissue thickening and fat stranding in the lower neck with skin angie and soft tissue air, consistent with recent postoperative change. No evidence of pulmonary embolism or aortic dissection. Small bilateral pleural effusions and dependent bilateral lower lobe atelectasis. C5-C7 ACDF hardware in place with widening of the adjacent prevertebral soft tissues, likely reactive or postoperative. Correlation with operative history and surgical site evaluation is recommended to exclude active bleeding or infection. Critical results communicated to Dr. Camacho at 7 p.m.. Reading Location: [address] 01/20/25 05:55 IMPRESSION: Coronary artery calcification (CAC) is is absent Unchanged 8.5 x 3.7 cm mediastinal hematoma. Unchanged prevertebral soft tissue thickening and fat stranding in the lower neck. Unchanged small bilateral pleural effusions and bilateral basilar atelectatic airspace disease of the lower lobes. Endotracheal tube is in good position. Surgical changes of the neck, unchanged. ACDF from C5-C7, unchanged. Reading Location: [place] [address] Physical Exam Const Constitutional Narrative: Remains intubated, sedated and mechanically ventilated. No ventilator dyssynchrony noted. HEENT normocephalic and head/scalp atraumatic Mouth: endotracheal tube in place and OG tube in place Eyes EOMs intact bilaterally and conjunctivae normal Neck Neck Narrative: Rigid c-collar in place. Chest inspection of chest normal Resp normal respiratory effort Auscultation: Negative for rales, rhonchi or wheezes Cardio regular rate and regular rhythm GI normal to inspection, nondistended, normoactive bowel sounds Extremity no clubbing, cyanosis or edema Skin no rashes or lesions noted Neuro Sensorium / Orientation: sedated on vent Charges/Coding Procedures Hospitalists Procedures: [id number] Critical Care 1st Hr
--- NOTE | 2025-01-20 08:31 | PCM.PN.ORT ---
Subjective Subjective Adalid is a 45 yo day 2 s/p C5-7 ACDF with subsequent hematoma evacuation 01/19/[address] Villagran. Patient went to the ER late Thursday01/18/25 with shortness of breath. The patient has remained intubated following the hematoma evacuation. The patient has a MATTHIAS drain with 15 cc drainage. Scant amt dried blood on bandage, unchanged. Patient's blood pressures remained stable overnight. The patient is calm and sedation being weaned to attempt extubation this morning. Moves all 4 extremities and follows commands. Denies any pain. Objective Data Objective Data Review of virally recorded arterial BP readings overnight with systolic in the 120s to 142 and diastolics 60 to 80s. Do note cuff pressure reading of 142/102 during today's visit with art line reading of 124/78. MATHTIAS output 15 cc Vital Signs: Vital Signs Temp Pulse Resp BP Pulse Ox O2 Del Method O2 Flow Rate 99 F 63 14 128/89 H 94 Nasal Cannula 10 01/20/25 06:00 01/20/25 07:00 01/20/25 07:00 01/20/25 07:00 01/20/25 07:00 01/20/25 07:00 01/19/25 02:36 FiO2 30 01/20/25 07:00 Oxygen Flow Rate (L/min) 10 Oxygen Delivery Method Nasal Cannula Weight: 203 lb 11.314 oz Body Mass Index (BMI) 30.0 Intake & Output: Intake and Output for Last 24 Hours 01/18/25 01/19/25 01/20/25 23:59 23:59 23:59 Intake Total 2277.58 / 2302.83 469.87 / 469.87 Output Total 2625 / 2625 465 / 465 Balance -347.42 / -322.17 4.87 / 4.87 Lab / Micro Data Attestation: I reviewed the patient's lab results. 01/20/25 04:43 01/20/25 04:43 Labs: Laboratory Results - last 24 hr 01/19/25 11:16: POC Glucose 130 H 01/19/25 17:44: POC Glucose 143 H 01/19/25 18:30: Hgb 13.4, Hct 38.4 L 01/19/25 23:50: Hgb 13.4, Hct 37.8 L 01/19/25 23:54: POC Glucose 130 H 01/20/25 04:43: WBC 14.6 H, RBC 3.92 L, Hgb 13.1, Hct 37.5 L, MCV 95.7 H, MCH 33.4 H, MCHC 34.9, RDW Std Deviation 41.4, RDW Coeff of Sravani 11.9, Plt Count 166, MPV 10.9, Immature Gran % (Auto) 0.600, Neut % (Auto) 86.9 H, Lymph % (Auto) 7.5 L, Emmet % (Auto) 4.9, Eos % (Auto) 0.0, Baso % (Auto) 0.1, Absolute Neuts (auto) 12.7 H, Absolute Lymphs (auto) 1.09, Nucleated RBC % 0, Sodium 138, Potassium 4.3, Chloride 107, Carbon Dioxide 22.7, Anion Gap 9, BUN 17, Creatinine 0.81, Estim Creat Clear Calc 128.59, Est GFR (MDRD) Non-Af 110, BUN/Creatinine Ratio 21.4 H, Glucose 147 H, Calcium 8.5 Radiography Diagnostic Testing: Radiology Impression Chest X-Ray 01/19/25 18:25 IMPRESSION: No acute cardiopulmonary disease. Endotracheal tube in stable position. Widening of the upper mediastinum, new since 01/18/2025; this is likely related to the aforementioned large postoperative prevertebral hematoma collection status post recent ACDF. See recent prior neck CT report from 01/18/2025 for further details. Reading Location: [id number] Chest CTA 01/19/25 18:27 IMPRESSION: Ill-defined 8.5 x 3.7 cm heterogeneous soft tissue within the upper mediastinum, which appears larger than the prior study. This may represent a hematoma that is increasing in size. Associated prevertebral soft tissue thickening and fat stranding in the lower neck with skin angie and soft tissue air, consistent with recent postoperative change. No evidence of pulmonary embolism or aortic dissection. Small bilateral pleural effusions and dependent bilateral lower lobe atelectasis. C5-C7 ACDF hardware in place with widening of the adjacent prevertebral soft tissues, likely reactive or postoperative. Correlation with operative history and surgical site evaluation is recommended to exclude active bleeding or infection. Critical results communicated to Dr. Camacho at 7 p.m.. Reading Location: [address] 01/20/25 05:55 IMPRESSION: Coronary artery calcification (CAC) is is absent Unchanged 8.5 x 3.7 cm mediastinal hematoma. Unchanged prevertebral soft tissue thickening and fat stranding in the lower neck. Unchanged small bilateral pleural effusions and bilateral basilar atelectatic airspace disease of the lower lobes. Endotracheal tube is in good position. Surgical changes of the neck, unchanged. ACDF from C5-C7, unchanged. Reading Location: [place] [address] Physical Exam Const alert and no apparent distress General Appearance: cooperative Neck supple Neck Narrative: Dressing over MATTHIAS drain to left anterior neck with scant amount dried blood present otherwise clean, dry and intact. Small amount of bloody drainage in MATTHIAS drain. C-collar in place with good fit and support of C-spine. General: trachea midline Resp Resp Narrative: Patient remains intubated and on mechanical ventilation with no apparent distress or agitation. Cardio regular rate and regular rhythm Extremity normal capillary refill and no calf tenderness Assessment & Plan Assessment/Plan (1) Postoperative hematoma: QUALIFIERS: Procedure type: non-dermatologic Surgical complication system/body Area: subcutaneous tissue Qualified Code(s): L76.32 - Postprocedural hematoma of skin and subcutaneous tissue following other procedure PLAN: Postoperative hematoma with evacuation 01/19/2025 Plan is for extubation today, currently weaning sedation Continue steroid taper per interpretive naturalist Continue antibiotics as written Following extubation the patient may be moved out of the ICU Continue to monitor mediastinal hematoma Dr. Villagran to round later today Plan is for discharge home when medically cleared (2) Status post cervical spinal fusion: PLAN: Status post cervical C5-7 ACDF 01/19/[address] Villagran Same as above Outpt f/u in clinic in 2 weeks, sooner for changes or concerns
--- NOTE | 2025-01-20 10:25 | NURSING ---
Dr Nolen requesting to extubate. Respiratory and this RN in room. Ready to extubate. Extubated at 0948. 2L NC placed on patient. Patient tolerated well.
--- NOTE | 2025-01-20 15:15 | CASEMGMT ---
ABHINAV CRUZ NOTE: Pt has been extubated today. ABHINAV CRUZ to room. Pt sitting up in chair, on RA. Sig other @ bedside. Introduced self and role to pt. Pt denies having any concerns w/going home @ discharge. Carter BSN ABHINAV CRUZ
--- NOTE | 2025-01-20 18:34 | PCM.PN.HOSP ---
Subjective Subjective Patient was seen and examined today, he was extubated this morning, I talked briefly with critical care about his care. I also talked with spinal surgery concerning the patient's hypertension-it appears that he has a history of hypertension but is not treated with any medications. Objective Data Objective Data Vital Signs: Vital Signs Temp Pulse Resp BP Pulse Ox O2 Del Method O2 Flow Rate 98.8 F 122 H 15 187/121 H 98 Room Air 2 01/20/25 13:00 01/20/25 18:00 01/20/25 18:00 01/20/25 18:00 01/20/25 18:00 01/20/25 18:00 01/20/25 10:00 FiO2 30 01/20/25 08:00 Oxygen Flow Rate (L/min) 2 Oxygen Delivery Method Room Air Weight: 92.4 kg Body Mass Index (BMI) 30.0 Intake & Output: Intake and Output for Last 24 Hours 01/18/25 01/19/25 01/20/25 23:59 23:59 23:59 Intake Total 2277.58 / 2302.83 596.32 / 596.32 Output Total 2625 / 2625 2165 / 2165 Balance -347.42 / -322.17 -1568.68 / -1568.68 Lab / Micro Data 01/20/25 04:43 01/20/25 04:43 Labs: Laboratory Results - last 24 hr 01/19/25 18:30: Hgb 13.4, Hct 38.4 L 01/19/25 23:50: Hgb 13.4, Hct 37.8 L 01/19/25 23:54: POC Glucose 130 H 01/20/25 04:43: WBC 14.6 H, RBC 3.92 L, Hgb 13.1, Hct 37.5 L, MCV 95.7 H, MCH 33.4 H, MCHC 34.9, RDW Std Deviation 41.4, RDW Coeff of Sravani 11.9, Plt Count 166, MPV 10.9, Immature Gran % (Auto) 0.600, Neut % (Auto) 86.9 H, Lymph % (Auto) 7.5 L, Clark % (Auto) 4.9, Eos % (Auto) 0.0, Baso % (Auto) 0.1, Absolute Neuts (auto) 12.7 H, Absolute Lymphs (auto) 1.09, Nucleated RBC % 0, Sodium 138, Potassium 4.3, Chloride 107, Carbon Dioxide 22.7, Anion Gap 9, BUN 17, Creatinine 0.81, Estim Creat Clear Calc 128.59, Est GFR (MDRD) Non-Af 110, BUN/Creatinine Ratio 21.4 H, Glucose 147 H, Calcium 8.5 01/20/25 11:03: POC Glucose 115 H 01/20/25 17:00: POC Glucose 115 H Radiography Diagnostic Testing: Radiology Impression Chest X-Ray 01/19/25 18:25 IMPRESSION: No acute cardiopulmonary disease. Endotracheal tube in stable position. Widening of the upper mediastinum, new since 01/18/2025; this is likely related to the aforementioned large postoperative prevertebral hematoma collection status post recent ACDF. See recent prior neck CT report from 01/18/2025 for further details. Reading Location: [facility] Chest CTA 01/19/25 18:27 IMPRESSION: Ill-defined 8.5 x 3.7 cm heterogeneous soft tissue within the upper mediastinum, which appears larger than the prior study. This may represent a hematoma that is increasing in size. Associated prevertebral soft tissue thickening and fat stranding in the lower neck with skin angie and soft tissue air, consistent with recent postoperative change. No evidence of pulmonary embolism or aortic dissection. Small bilateral pleural effusions and dependent bilateral lower lobe atelectasis. C5-C7 ACDF hardware in place with widening of the adjacent prevertebral soft tissues, likely reactive or postoperative. Correlation with operative history and surgical site evaluation is recommended to exclude active bleeding or infection. Critical results communicated to Dr. Camacho at 7 p.m.. Reading Location: [address] 01/20/25 05:55 IMPRESSION: Coronary artery calcification (CAC) is is absent Unchanged 8.5 x 3.7 cm mediastinal hematoma. Unchanged prevertebral soft tissue thickening and fat stranding in the lower neck. Unchanged small bilateral pleural effusions and bilateral basilar atelectatic airspace disease of the lower lobes. Endotracheal tube is in good position. Surgical changes of the neck, unchanged. ACDF from C5-C7, unchanged. Reading Location: [place] [address] Physical Exam Const alert, oriented x3 and no apparent distress General Appearance: cooperative, well kempt and well developed Orientation / Consciousness: awake, oriented to person, oriented to place and oriented to time HEENT normocephalic, head/scalp atraumatic and moist oral mucous membranes Eyes PERRL, EOMs intact bilaterally and conjunctivae normal Neck Neck Narrative: Patient has a rigid neck collar in place General: trachea midline Resp normal respiratory effort, no retractions, no use of accessory muscles and clear to auscultation bilaterally Auscultation: Negative for rales, rhonchi or wheezes Cardio regular rate, regular rhythm, S1 normal heart sound, S2 normal heart sound, no murmurs, no rub and no gallops GI normal to inspection, nondistended, normoactive bowel sounds, soft to palpation, non-tender and non-distended Extremity no clubbing, cyanosis or edema Skin no rashes or lesions noted General Skin Exam: no breakdown Neuro oriented x3, CN's II-XII intact bilaterally, moves all extremities, no focal motor deficits and no sensory deficits noted Sensorium / Orientation: awake and alert Speech: speech normal Psych affect normal Assessment & Plan Assessment/Plan (1) Hypertension: (2) Postoperative hematoma: QUALIFIERS: Surgical complication system/body Area: subcutaneous tissue Procedure type: non-dermatologic Qualified Code(s): L76.32 - Postprocedural hematoma of skin and subcutaneous tissue following other procedure PLAN: Plan 1. 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-status post cervical spinal fusion-spinal surgery is participating in his care #3 postop hematoma of the neck-CBC is stable #4 essential hypertension-patient was placed on losartan, hydrochlorothiazide, and metoprolol this afternoon, hydralazine will be given as needed elevated blood pressure #5 mediastinal hematoma secondary to migration of bleeding from the patient's neck surgery-no treatment is necessary for this at this time Blood sugars are being monitored, sliding scale insulin will be used if necessary Total clinical time spent by myself addressing the patient's medical issues, reviewing all of his data, and collaborating with the patient's care team: 35 minutes Charges/Coding Visit Charges Inpatient E&M: 84811 Subs Hosp L2
[2025-01-20] MEDS: Nicotine (PBKC) 14 MG Patch TD (18:39)
[2025-01-21] VITALS (17 sets, daily range): BP systolic 131–166; BP diastolic 90–111; PULSE 62–83; RESP 11–16; TEMP 36.8–36.9; O2SAT 93–98; BMI 29.1
[2025-01-21] MEDS: 0.9% Saline Lock 10 ML Syringe IV ×2 (02:29→06:31)
[2025-01-21 03:44] LABS: Hematocrit 41.9 % (40-54); Hemoglobin 14.9 g/dL (13.0-16.5); Mean Corp Hgb Conc 35.6 g/dL (32-36); Mean Corpuscular Volume 94.6 fL (80-94); Mean Platelet Vol. 10.8 fl (6.2-12.0); Platelet Count 217 K/mm3 (150-450); RBC Distribution Width CV 12.2 % (11.6-14.6); RBC Distribution Width SD 42.3 fl (35.1-43.9); Red Blood Count 4.43 M/mm3 (4.6-6.2); White Blood Count 23.4 K/mm3 (4.4-11.0)
[2025-01-21 04:05] LABS: Anion Gap 13 (5-15); BUN 18 mg/dL (4-19); BUN/Creat Ratio 23.4 RATIO (10-20); Calcium,Total 9.4 mg/dL (7.6-11.0); Carbon Dioxide 23.0 mmol/L (21.0-32.0); Chloride 102 mmol/L (98-108); Estimated Creatinine Clearance 130.72 ml/min (50-250); Glucose 118 mg/dL (70-99); Potassium 3.9 mmol/L (3.3-5.1)
[2025-01-21] MEDS: Cefazolin 2 GM in 0.9% Normal Saline (100mL Bag) 100 ML IV (06:30)
[2025-01-21] MEDS: Famotidine 200 MG/20 ML MDV 20 MG in 0.9% Normal Saline (Pres. free 8 ML 300 MG IV (09:56)
--- NOTE | 2025-01-21 11:48 | DCINST_ITS ---
Discharge Instructions DC O2, CPAP, BIPAP needs Home O2 Discharge instructions: No Dressing / Incision Discharge Activity: Return to Normal Activity Weight Bearing Status: Full weight bearing Dressing / Incision Call your doctor if your incision/area has: Continuous Slow Oozing, Increased Pain/ Swelling, Increased Redness and Foul Smelling Discharge Call your doctor if you observe: Fever of 101 or Higher Suture Line Care: - (Wear your hard cervical collar until you follow-up with Dr. Villagran in the office) Follow Up Care Test Results: Test results from this visit will be discussed in further detail at your follow- up appointment, if applicable. Discharge Plan Admission Admit Date/Time: 01/19/25 06:46 Primary Reason for Your Visit: Cervical neck fusion, neck hematoma, respiratory failure, hypertension Attending Provider: Adan Villagran Primary Care Provider: Makeda Hawkins Consulting Providers: Denise Worley; Michael Tejeda; Giuseppe Shaw; Matt Nguyen; Arash Nolen; Brady Ro; Shi Reddign; Vincent Arnold; Jyoti Mercado; Mendoza Jeff; Berkley Rutherford; Brody Baumann; Da Arreola; Mega Huffman; Demarco Singer; Cynthia Jenkins; Radames Ladd; Arron Almazan; Kyle Dukes; Keyla Kumar; Esther Lance; Abdullahi,Mohamed; Galileo,Mike; Jeff Alfred; Vik,Adan; Arslan,Ryley; Lynn Martinez; Michael Shi; Susan Apple; Ludin De La Rosa; Barrett Davis; Senait Salazar; Sharad Lawrence; Kyle Ly Instructions Additional Instructions / Restrictions: Wear hard cervical collar until seen by Dr. Villagran in his office Discharge Orders/Prescriptions Prescriptions: New diazepam 5 mg Tablet 5 mg PO TID PRN (Reason: muscle spasm) Qty: 21 0RF hydrochlorothiazide 25 mg Tablet 25 mg PO DAILY Qty: 30 0RF valsartan [Diovan] 320 mg tablet 320 mg PO DAILY Qty: 30 0RF metoprolol tartrate 100 mg Tablet 100 mg PO BID Qty: 60 0RF oxycodone 5 mg Tablet 5 mg PO Q4H PRN PRN (Reason: Pain Score 6-10) 7 Days Qty: 25 0RF Continued albuterol sulfate 90 mcg/actuation HFA aerosol inhaler 2 puff inhalation Q4-6H PRN (Reason: dyspnea) gabapentin 300 mg capsule 300 mg PO BID Qty: 60 0RF gabapentin 100 mg capsule 100 mg PO TID meloxicam 15 mg tablet 15 mg PO DAILY Qty: 30 0RF Rx Instructions: take once a day senna 8.6 mg capsule 8.6 mg PO BID PRN (Reason: constipation) Qty: 14 0RF Discontinued hydrocodone-acetaminophen 5-325 mg tablet 1 tab PO Q6H PRN (Reason: pain) 7 Days Qty: 28 0RF dexamethasone 4 mg tablet 4 mg PO BID Qty: 5 0RF Rx Instructions: take 2 tab on day 1, 2 tabs on day 2, and 1 tab on day 3 methocarbamol 500 mg tablet 750 mg PO TID PRN (Reason: pain/spasms) Qty: 30 0RF cephalexin 500 mg capsule 500 mg PO BID Qty: 6 0RF Rx Instructions: take 1 cap twice a day Referrals / Follow Up: Makeda Hawkins NP-C [Primary Care Provider, Family Practice] - See Referral Note Referral Note: In 2 weeks for your blood pressure Adan Villagran MD [Med Staff - Active Staff, Orthopedics] - See Referral Note Referral Note: As previously directed Disposition Disposition (needs filled in before D/C Order can be placed): Home, Self Care
--- NOTE | 2025-01-21 12:01 | PN.HOSP_ITS ---
Subjective Subjective Patient was seen and examined today, he is in no distress, I talked with spinal surgery about his care, he appears medically stable for discharge home, blood pressure is still a little high but it will take several days for the medications to catch up. Objective Data Objective Data Vital Signs: Vital Signs Temp Pulse Resp BP Pulse Ox O2 Del Method O2 Flow Rate 98.3 F 75 15 144/99 H 96 Room Air 2 01/21/25 04:00 01/21/25 11:00 01/21/25 11:00 01/21/25 11:00 01/21/25 11:00 01/21/25 11:00 01/21/25 09:00 FiO2 30 01/20/25 08:00 Oxygen Flow Rate (L/min) 2 Oxygen Delivery Method Room Air Weight: 89.2 kg Body Mass Index (BMI) 29.1 Intake & Output: Intake and Output for Last 24 Hours 01/19/25 01/20/25 01/21/25 23:59 23:59 23:59 Intake Total 2277.58 / 2302.83 716.32 / 716.32 600 / 600 Output Total 2625 / 2625 3265 / 3265 1450 / 1450 Balance -347.42 / -322.17 -2548.68 / -2548.68 -850 / -850 Lab / Micro Data 01/21/25 03:37 01/21/25 03:37 Labs: Laboratory Results - last 24 hr 01/20/25 17:00: POC Glucose 115 H 01/20/25 20:00: POC Glucose 124 H 01/20/25 23:45: POC Glucose 111 H 01/21/25 02:21: POC Glucose 121 H 01/21/25 03:37: WBC 23.4 H, RBC 4.43 L, Hgb 14.9, Hct 41.9, MCV 94.6 H, MCH 33.6 H, MCHC 35.6, RDW Std Deviation 42.3, RDW Coeff of Sravani 12.2, Plt Count 217, MPV 10.8, Sodium 138, Potassium 3.9, Chloride 102, Carbon Dioxide 23.0, Anion Gap 13, BUN 18, Creatinine 0.78, Estim Creat Clear Calc 130.72, Est GFR (MDRD) Non- Af 111, BUN/Creatinine Ratio 23.4 H, Glucose 118 H, Calcium 9.4 10/18/25 06:25: POC Glucose 114 H Physical Exam Narrative Physical Exam Const alert, oriented x3 and no apparent distress General Appearance: cooperative, well kempt and well developed Orientation / Consciousness: awake, oriented to person, oriented to place and oriented to time HEENT normocephalic, head/scalp atraumatic and moist oral mucous membranes Eyes PERRL, EOMs intact bilaterally and conjunctivae normal Neck Neck Narrative: Patient has a rigid neck collar in place General: trachea midline Resp normal respiratory effort, no retractions, no use of accessory muscles and clear to auscultation bilaterally Auscultation: Negative for rales, rhonchi or wheezes Cardio regular rate, regular rhythm, S1 normal heart sound, S2 normal heart sound, no murmurs, no rub and no gallops GI normal to inspection, nondistended, normoactive bowel sounds, soft to palpation, non-tender and non-distended Extremity no clubbing, cyanosis or edema Skin no rashes or lesions noted General Skin Exam: no breakdown Neuro oriented x3, CN's II-XII intact bilaterally, moves all extremities, no focal motor deficits and no sensory deficits noted Sensorium / Orientation: awake and alert Speech: speech normal Psych affect normal Assessment & Plan Assessment/Plan (1) Hypertension: (2) Postoperative hematoma: QUALIFIERS: Surgical complication system/body Area: subcutaneous tissue Procedure type: non-dermatologic Qualified Code(s): L76.32 - Postprocedural hematoma of skin and subcutaneous tissue following other procedure PLAN: Plan 1. 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-status post cervical spinal fusion-spinal surgery is participating in his care #3 postop hematoma of the neck-CBC is stable #4 Uncontrolled essential hypertension-patient will continue on outpatient blood pressure medications #5 mediastinal hematoma secondary to migration of bleeding from the patient's neck surgery-no treatment is necessary for this at this time #6 leukocytosis secondary to IV corticosteroid administration Blood sugars are being monitored, sliding scale insulin will be used if necessary Total clinical time spent by myself addressing the patient's medical issues, reviewing all of his data, and collaborating with the patient's care team: 35 minutes Charges/Coding Visit Charges Inpatient E&M: 59566 Subs Hosp L2
--- NOTE | 2025-01-21 12:09 | PN.CC_ITS ---
Objective Data Objective Data Vital Signs: Vital Signs Last response 3 Temperature 36.8 C 01/21/25 04:00 Temperature Source Temporal 01/21/25 04:00 Pulse Rate 75 01/21/25 11:00 Pulse Strength Normal (2+) 01/21/25 08:23 Respiratory Rate 15 01/21/25 11:00 Respiratory Effort Normal, Non-Labored 01/21/25 03:47 Respiratory Depth Normal 01/21/25 03:47 Respiratory Pattern Normal 01/21/25 10:18 Blood Pressure 144/99 H 01/21/25 11:00 Blood Pressure Mean 114 01/21/25 11:00 Blood Pressure Source Monitor 01/21/25 11:00 Blood Pressure Position Semi-Fowlers 01/21/25 11:00 Blood Pressure Location Right Arm 01/21/25 11:00 Baseline BP 163/121 01/19/25 03:10 Pulse Ox 96 01/21/25 11:00 Oxygen Delivery Method Room Air 01/21/25 11:00 Oxygen Flow Rate (L/min) 2 01/21/25 09:00 Fraction of Inspired Oxygen (FIO2) 30 01/20/25 08:00 I&O: I&O Last 24 Hours 3 01/20/25 01/21/25 01/21/25 23:59 11:59 23:59 Intake Total 230 / 716.32 600 / 600 Output Total 2400 / 3265 1450 / 1450 Balance -2170 / -2548.68 -850 / -850 I&O: Total Stay 3 01/18/25 20:51 thru 01/21/25 10:07 Intake Total 3593.90 Output Total 7340 Balance -3746.10 Current Meds Ordered / Administered: Current meds ordered / Administered 3 Generic Name Dose Route Start Last Admin Trade Name Freq PRN Reason Stop Dose Admin Acetaminophen 1,000 mg 01/20/25 15:45 01/21/25 06:30 Acetaminophen 500 Mg Tablet PO 1,000 mg Q8 TAYLOR Administration Albuterol/Ipratropium 3 ml 01/20/25 10:30 01/21/25 10:17 Ipratropium/Albuterol Sulfate 3 Ml Ampul.Neb INHALATION 3 ml Q4HWA.RT PRN Administration SHORTNESS OF BREATH Dexamethasone Sodium Phosphate 10 mg 01/19/25 06:00 01/21/25 06:30 Dexamethasone 10 Mg/Ml Vial PO.IVFORM 10 mg TID TAYLOR Administration Diazepam 5 mg 01/20/25 22:00 01/21/25 06:30 Diazepam 5 Mg Tablet PO 5 mg TID TAYLOR Administration Glucagon 1 mg 01/19/25 04:01 Glucagon 1 Mg/Ml Syringe IM X1 PRN Hypoglycemia Protocol Hydralazine HCl 10 mg 01/20/25 16:22 01/21/25 02:29 Hydralazine 20 Mg/Ml Vial IV 10 mg Q4H PRN PRN Administration HTN Protocol Hydrochlorothiazide 25 mg 01/20/25 16:10 01/21/25 09:51 Hydrochlorothiazide 25 Mg Tablet PO 25 mg DAILY TAYLOR Administration Protocol Cefazolin Sodium 2 gm/ Sodium 110 mls @ 200 mls/hr 01/19/25 06:00 01/21/25 07:03 Chloride IV Infused Q8 TAYLOR Infusion Sodium Chloride 250 mls @ 15 mls/hr 01/19/25 02:31 01/19/25 19:00 IV 0 mls/hr .[id number] PRN Infusion Saline Flush Sodium Chloride 250 mls @ 15 mls/hr 01/19/25 02:31 IV .[id number] PRN Additional IVPB Infusion Famotidine 20 mg/ Sodium 10 mls @ 300 mls/hr 01/19/25 10:00 01/21/25 10:07 Chloride IV Infused Q12 TAYLOR Infusion Dextrose 250 mls @ 0 mls/hr 01/19/25 04:01 Dextrose 10%-Water IV .Q0M PRN HYPOGLYCEMIA Protocol As Directed Insulin Human Lispro 0 unit 01/19/25 06:00 01/21/25 06:31 Insulin Lispro 100 Unit/Ml Insuln.Pen SC Not Given Q6 TAYLOR Protocol Losartan Potassium 100 mg 01/21/25 10:00 01/21/25 09:51 Losartan Potassium 100 Mg Tablet PO 100 mg DAILY TAYLOR Administration Protocol Meloxicam 15 mg 01/20/25 15:45 01/21/25 09:52 Meloxicam 15 Mg Tablet PO 15 mg DAILY TAYLOR Administration Metaxalone 800 mg 01/20/25 22:00 01/21/25 06:30 Metaxalone 800 Mg Tablet PO 800 mg TID TAYLOR Administration Metoprolol Tartrate 100 mg 01/20/25 18:15 01/21/25 09:51 Metoprolol Tartrate 100 Mg Tablet PO 100 mg BID TAYLOR Administration Protocol Morphine Sulfate 1 mg 01/20/25 15:41 01/21/25 06:30 Morphine 2 Mg/Ml Syringe IV 1 mg Q3H PRN PRN Administration Pain Score 6-10 Nicotine 14 mg 01/20/25 18:15 01/21/25 09:52 Nicotine (Pbkc) 14 Mg Patch TD Not Given DAILY [facility] Oxycodone HCl 5 mg 01/20/25 15:41 01/21/25 09:55 Oxycodone 5 Mg Tablet PO 5 mg Q4H PRN PRN Administration Pain Score 6-10 Sodium Chloride 10 - 40 ml 01/19/25 02:31 01/21/25 06:31 0.9% Saline Lock 10 Ml Syringe IV 10 ml UD PRN Administration SALINE FLUSH Lab / Micro Data 01/21/25 03:37 01/21/25 03:37 Labs: Laboratory Results - last 24 hr 01/20/25 17:00: POC Glucose 115 H 01/20/25 20:00: POC Glucose 124 H 01/20/25 23:45: POC Glucose 111 H 01/21/25 02:21: POC Glucose 121 H 01/21/25 03:37: WBC 23.4 H, RBC 4.43 L, Hgb 14.9, Hct 41.9, MCV 94.6 H, MCH 33.6 H, MCHC 35.6, RDW Std Deviation 42.3, RDW Coeff of Sravani 12.2, Plt Count 217, MPV 10.8, Sodium 138, Potassium 3.9, Chloride 102, Carbon Dioxide 23.0, Anion Gap 13, BUN 18, Creatinine 0.78, Estim Creat Clear Calc 130.72, Est GFR (MDRD) Non- Af 111, BUN/Creatinine Ratio 23.4 H, Glucose 118 H, Calcium 9.4 01/21/25 06:25: POC Glucose 114 H Assessment and Plan . Assessment and plan: IMPRESSIONS: 1. Acute hypoxemic respiratory failure; has done well post extubation 2. s/p anterior cervical fusion, complicated by hematoma causing airway compression/. respiratory embarrassment/ intubation RECOMMENDATIONS: 1. OK to transfer to floor Critical Care Time: 30 minutes The entirety of this encounter was done via Telemedicine Physical Exam Const alert, oriented x3 and no apparent distress General Appearance: cooperative and comfortable HEENT Head and Scalp: normal to inspection Eyes PERRL and EOMs intact bilaterally Neck General: trachea midline, submandibular swelling and other Resp normal respiratory effort Subjective Subjective doing well post extubation, on RA, ambulating about
--- NOTE | 2025-01-21 12:17 | PN.ORTHO_ITS ---
Subjective Subjective Postop day 3 status post C5-7 ACDF, followed by reoperation in the form of hematoma evacuation that night. Patient was extubated yesterday. Since then drain has been removed, patient is ambulated with PT. Complains of neck pain. Prefers the collar to be lose as he feels suffocated. Explained need for the collar to be personality fitting to help with the pain. Was hypertensive and was started on a 2-3 drug regimen last night. Diastolics in the high 90s today. Objective Data Objective Data Vital Signs: Vital Signs Temp Pulse Resp BP Pulse Ox O2 Del Method O2 Flow Rate 98.3 F 75 15 144/99 H 96 Room Air 2 01/21/25 04:00 01/21/25 11:00 01/21/25 11:00 01/21/25 11:00 01/21/25 11:00 01/21/25 11:00 01/21/25 09:00 FiO2 30 01/20/25 08:00 Oxygen Flow Rate (L/min) 2 Oxygen Delivery Method Room Air Weight: 196 lb 10.437 oz Body Mass Index (BMI) 29.1 Intake & Output: Intake and Output for Last 24 Hours 01/19/25 01/20/25 01/21/25 23:59 23:59 23:59 Intake Total 2277.58 / 2302.83 716.32 / 716.32 600 / 600 Output Total 2625 / 2625 3265 / 3265 1450 / 1450 Balance -347.42 / -322.17 -2548.68 / -2548.68 -850 / -850 Lab / Micro Data 01/21/25 03:37 01/21/25 03:37 Labs: Laboratory Results - last 24 hr 01/20/25 17:00: POC Glucose 115 H 01/20/25 20:00: POC Glucose 124 H 01/20/25 23:45: POC Glucose 111 H 01/21/25 02:21: POC Glucose 121 H 01/21/25 03:37: WBC 23.4 H, RBC 4.43 L, Hgb 14.9, Hct 41.9, MCV 94.6 H, MCH 33.6 H, MCHC 35.6, RDW Std Deviation 42.3, RDW Coeff of Sravani 12.2, Plt Count 217, MPV 10.8, Sodium 138, Potassium 3.9, Chloride 102, Carbon Dioxide 23.0, Anion Gap 13, BUN 18, Creatinine 0.78, Estim Creat Clear Calc 130.72, Est GFR (MDRD) Non- Af 111, BUN/Creatinine Ratio 23.4 H, Glucose 118 H, Calcium 9.4 01/21/25 06:25: POC Glucose 114 H Physical Exam Narrative Dressing–CDI. Collar adjusted. Patient refuses it to be snug. Neurologic examination of upper extremity shows 5 x 5 strength. No hyperreflexia. Assessment & Plan Assessment/Plan (1) Postoperative hematoma: QUALIFIERS: Surgical complication system/body Area: subcutaneous tissue Procedure type: non-dermatologic Qualified Code(s): L76.32 - Postprocedural hematoma of skin and subcutaneous tissue following other procedure (2) Status post cervical spinal fusion: PLAN: Plan Postop day 3 status post C5-7 ACDF followed by hematoma evacuation same night. Patient is doing well overall. Pain seems controlled with the medication started yesterday which includes oxycodone, Valium, Tylenol and meloxicam. He should continue with these after discharge. Will also need continued hypertension treatment and early follow-up with PCP. Discussed with patient and about previous diagnosis of hypertension 2 years ago. Patient and says that he was adamant and stubborn and did not take medications. They report that his preop evaluation by PCP did not show hypertension. I discussed with hospitalist Dr. Ly about discharge plans. Patient appears medically ready for discharge from his perspective. He will continue hypertension medications. 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 Follow-up in Ortho clinic in 2 weeks as scheduled. Answered all questions.
--- NOTE | 2025-01-21 13:01 | CASEMGMT ---
Social Work Pt completed POA for Healthcare w/SW, named his signifant other as POA and his parents as alternates. SW gave pt original and copies, and copy placed on the chart. LADI Chang
== END 2025-01-21 12:55 | disposition home or self-care (01) | DRG 907 ==
LOC: ED 23:11 → SDC 23:12 → AC 23:12 → ICU 01-19 08:00 → SDC 01-19 10:43
PROVIDERS: Internal Medicine; Student in an Organized Health Care Education/Training Program; Admitting Provider Orthopaedic Surgery Orthopaedic Surgery of the Spine; Emergency Provider Emergency Medicine; PCP Nurse Practitioner Family; Visit Provider Orthopaedic Surgery Orthopaedic Surgery of the Spine
PROC: 0JC50ZZ Extirpation of Matter from Left Neck Subcutaneous Tissue and Fascia, Open Approach (ICD-10-PCS; principal; 2025-01-19)
DX: L76.32 Postprocedural hematoma of skin and subcutaneous tissue following other procedure (principal); J95.821 Acute postprocedural respiratory failure; R57.8 Other shock; E87.20 Acidosis, unspecified; J95.861 Postprocedural hematoma of a respiratory system organ or structure following other procedure; I10 Essential (primary) hypertension; J45.909 Unspecified asthma, uncomplicated; L76.22 Postprocedural hemorrhage of skin and subcutaneous tissue following other procedure; F17.210 Nicotine dependence, cigarettes, uncomplicated; Y83.8 Other surgical procedures as the cause of abnormal reaction of the patient, or of later complication, without mention of misadventure at the time of the procedure; Z98.1 Arthrodesis status; R07.89 Other chest pain; T46.5X6A Underdosing of other antihypertensive drugs, initial encounter; Z91.141 Patient's other noncompliance with medication regimen due to financial hardship
CPT/HCPCS: 31720; 36600; 70491; 71045; 71250; 71275; 80048; 80053; 82550; 82803; 82962; 83735; 84100; 84478; 85014; 85018; 85025; 85027; 85610; 93005; 94002; 94003; 94640; 94668; 94762; 97162; 99284; Q9967; A4216; J2405

== ENCOUNTER 2025-01-21 20:54 | Observation (INO) | payer OTHER, MEDICAID, SELFPAY ==
[2025-01-21 20:55] VITALS: BP 136/92; PULSE 67; RESP 16; TEMP 36.6; O2SAT 97; BMI 28.5
--- NOTE | 2025-01-21 21:12 | W.ED ---
Situation: Background: Assessment: Recommendation: I'm only including allergies in FD, so far... No Known Allergies Allergy (Verified 01/21/25 20:55) Situation - Admission Stated Complaint dc'd from [facility] ICU today, had surgery for a hematoma. tonight is dizzy and having chest pain. Background - History Hx Hospitalization No Hx Seizures No Hx Hypertension Yes Hx Asthma Yes: childhood Hx Chronic Obstructive No Pulmonary Disease (COPD) Hx Emphysema No Hx Sleep Apnea No Hx Appendectomy Yes Hx Diabetes N Hx Anxiety No Hx Depression No Assessment - Level of Consciousness Level Of Consciousness Awake,Alert,Appropriate,Follows Commands Assessment - Vitals 01/21/25 20:55 01/21/25 21:07 Temperature 97.9 F Temperature Source Oral Pulse Rate 67 Respiratory Rate 16 Respiratory Effort Normal Blood Pressure 136/92 H Blood Pressure Mean 106 Pulse Ox 97 Oxygen Delivery Method Room Air
--- NOTE | 2025-01-21 21:12 | ED.RN ---
c/o squeezing chest pain 11/13 that started while he was at rest. has been ongoing for the last hour. also states he is feeling dizzy and short of breath.
--- NOTE | 2025-01-21 21:27 | EKG12_ITS ---
Test Reason : CP/SOB
[2025-01-21 21:48] VITALS: O2SAT 97
--- NOTE | 2025-01-21 21:49 | EX.ED.DYSGE1 ---
HPI History of Present Illness Chief Complaint: Dizziness Informant: patient Narrative Narrative: Patient is a 45-year-old male with history of hypertension as well as cervical myelopathy with cervical radiculopathy and recent anterior cervical fusion which was complicated by hematoma, losing airway compression. Patient underwent emergent evacuation of the hematoma and was actually discharged from our ICU today. States he has been doing well however developed episodes of dizziness that he describes as feeling lightheadedness and feeling shaky. He had some episode while in the hospital as he knew he related to his blood pressure being elevated. Dose today and he had an episode just prior to arrival but also had chest discomfort and shortness of breath with it. Came in for further evaluation. Notes when he had it he just walked from the bathroom. Denies any cough or difficulty breathing. Denies any significant neck pain. Denies any drainage from his incision site. No fever or chills reported. No nausea or vomiting reported. Denies any vertiginous symptoms. States he has been compliant with his new medications. [facility] Medical History Obesity (BMI 30-39.9) Wears glasses History of steroid therapy Smoker Migraines Asthma Internal hemorrhage Hypertension Home Medications ?Medication ?Instructions ?Recorded ?Last Taken ?Type albuterol sulfate 90 mcg/actuation 2 puff inhalation Q4-6H PRN dyspnea 01/05/25 Unknown History aerosol inhaler gabapentin 300 mg capsule 300 mg PO BID #60 caps 01/05/25 Unknown Rx gabapentin 100 mg capsule 100 mg PO TID 01/11/25 Unknown History meloxicam 15 mg tablet 15 mg PO DAILY #30 tabs 01/18/25 Unknown Rx sennosides 8.6 mg capsule (senna) 8.6 mg PO BID PRN constipation #14 01/18/25 Unknown Rx caps diazepam 5 mg tablet 5 mg PO TID PRN muscle spasm #21 01/21/25 Unknown Rx tabs hydrochlorothiazide 25 mg tablet 25 mg PO DAILY #30 tabs 01/21/25 Unknown Rx metoprolol tartrate 100 mg tablet 100 mg PO BID #60 tabs 01/21/25 Unknown Rx oxycodone 5 mg tablet 5 mg PO Q4H PRN PRN Pain Score 01/21/25 Unknown Rx 6-10 7 days #25 tabs valsartan 320 mg tablet (Diovan) 320 mg PO DAILY #30 tabs 01/21/25 Unknown Rx Allergy/AdvReac Type Severity Reaction Status Date / Time No Known Allergies Allergy Verified 01/21/25 20:55 Family History Other Liver cancer Ovarian cancer Surgical History History of tonsillectomy History of appendectomy Social History household members: spouse Smoking Status: Current every day smoker tobacco type: cigarettes substance use type: does not use ROS ROS ED Constitutional Constitutional ED: Reports chills and sweats Cardiovascular Cardiovascular: Reports chest pain; Denies palpitations Respiratory/Chest Respiratory/Chest: Reports dyspnea; Denies cough Gastrointestinal Gastrointestinal: Denies nausea or vomiting Musculoskeletal Musculoskeletal: Reports other Details: Neck immobilizer in place Integumentary Denies rash Neurologic Neurologic: Denies paresthesias or weakness Psychiatric Psychiatric: Reports anxiety Hematologic/Lymphatic Hematologic/Lymphatic: Denies easy bleeding or easy bruising EXAM Physical Exam Const Vital Signs: 01/21/25 20:55 01/21/25 21:07 01/21/25 21:48 Temperature 97.9 F Temperature Source Oral Pulse Rate 67 Pulse Rate [Lying] Pulse Rate [Sitting (for 1 minute prior to obtaining)] Pulse Rate [Standing (for 1 minute prior to obtaining)] Respiratory Rate 16 Respiratory Effort Normal Blood Pressure 136/92 H Blood Pressure [Lying] Blood Pressure [Sitting (for 1 minute prior to obtaining)] Blood Pressure [Standing (for 1 minute prior to obtaining)] Blood Pressure Mean 106 Blood Pressure Mean [Lying] Blood Pressure Mean [Sitting (for 1 minute prior to obtaining)] Blood Pressure Mean [Standing (for 1 minute prior to obtaining)] Pulse Ox 97 97 Oxygen Delivery Method Room Air Room Air 01/21/25 21:54 01/21/25 22:00 01/21/25 23:00 Temperature Temperature Source Pulse Rate 71 60 63 Pulse Rate [Lying] Pulse Rate [Sitting (for 1 minute prior to obtaining)] Pulse Rate [Standing (for 1 minute prior to obtaining)] Respiratory Rate Respiratory Effort Blood Pressure 146/100 H 146/97 H 148/98 H Blood Pressure [Lying] Blood Pressure [Sitting (for 1 minute prior to obtaining)] Blood Pressure [Standing (for 1 minute prior to obtaining)] Blood Pressure Mean 115 113 114 Blood Pressure Mean [Lying] Blood Pressure Mean [Sitting (for 1 minute prior to obtaining)] Blood Pressure Mean [Standing (for 1 minute prior to obtaining)] Pulse Ox 97 95 95 Oxygen Delivery Method Room Air 01/22/25 00:00 01/22/25 00:06 Temperature Temperature Source Pulse Rate 66 Pulse Rate [Lying] 62 Pulse Rate [Sitting (for 1 minute prior to obtaining)] 66 Pulse Rate [Standing (for 1 minute prior to obtaining)] 72 Respiratory Rate Respiratory Effort Blood Pressure 148/110 H Blood Pressure [Lying] 154/95 H Blood Pressure [Sitting (for 1 minute prior to obtaining)] 148/110 H Blood Pressure [Standing (for 1 minute prior to obtaining)] 160/101 H Blood Pressure Mean 122 Blood Pressure Mean [Lying] 114 Blood Pressure Mean [Sitting (for 1 minute prior to obtaining)] 122 Blood Pressure Mean [Standing (for 1 minute prior to obtaining)] 120 Pulse Ox 100 Oxygen Delivery Method Positive well nourished and well developed General Appearance ED: well developed and NAD HEENT Reports moist mucous membranes Eyes PERRL Neck Neck Narrative: [place] c-collar in place. Anterior neck incision on the left with dry bandage in place. Chest Wall inspection of chest normal Resp normal respiratory effort and clear to auscultation bilaterally Auscultation: Negative for rales, rhonchi or wheezes Cardio regular rate, regular rhythm and no murmurs Extremity normal to inspection General Extremety ED: Negative for edema General Extremity: Negative for edema Neuro oriented x3 Sensorium / Orientation: alert Motor Exam: Negative for general weakness Psych mental status grossly normal Mood & Affect: anxious Skin no rashes or lesions noted and no wounds Skin Narrative: Surgical incision of the left anterior neck?overlying bandages clean and dry MDM MDM MDM Narrative Medical decision making narrative: Patient evaluated for what sounds like a near syncopal sensation with associated chest pain. He was just discharged from our ICU earlier today after having postoperative neck hematoma that required drainage and emergent surgery. Reports issues with elevated blood pressure while in the hospital and was started on metoprolol as well as valsartan and HCTZ. Differential includes is not limited to medication reaction, pulmonary emboli, arrhythmia, hypovolemia, symptomatic anemia, electrolyte derangement and ACS. He is not complaining of any shortness of breath low sufficient for any recurrence expanding hematoma/surgical complication. He very much denies room spinning sensation or vertigo. CBC does show leukocytosis however patient has been on steroids and this is stable over the last few days on chart review. Hemoglobin is normal at 15.1. D-dimer is minimally elevated 0.55 so CTA is added on. CTA does not show any PE or airspace disease and he does have a small amount of residual resolving mediastinal hemorrhage and postoperative changes to his neck base. I since he troponin less than 6 x 2 so lower sufficient for ACS as a cause of his symptoms. BMP largely normal. Orthostatics obtained which are negative however patient is symptomatic with standing. This is after receiving a liter of IV fluid. Discussed with patient and he states he feels more comfortable staying in the hospital tonight for further monitoring and workup. Given that he was just discharged from ICU earlier today adding that is reasonable. Case discussed with hospitalist for admission. Lab Data Labs: Laboratory Results - last 24 hr 01/21/25 01/21/25 21:45 23:45 WBC 17.3 H RBC 4.50 L Hgb 15.1 Hct 42.6 MCV 94.7 H MCH 33.6 H MCHC 35.4 RDW Std Deviation 43.2 RDW Coeff of Sravani 12.4 Plt Count 208 MPV 11.7 Immature Gran % (Auto) 2.100 H Neut % (Auto) 72.7 H Lymph % (Auto) 16.2 L Dillon % (Auto) 8.8 Eos % (Auto) 0.0 Baso % (Auto) 0.2 Absolute Neuts (auto) 12.6 H Absolute Lymphs (auto) 2.79 Nucleated RBC % 0.1 Platelet Estimate A RBC Morphology NORM C+C D-Dimer Quant (PE/DVT) 0.55 H* Sodium 136 Potassium 3.9 Chloride 102 Carbon Dioxide 19.8 L Anion Gap 14 BUN 31 H Creatinine 0.87 Estim Creat Clear Calc 116.21 Est GFR (MDRD) Non-Af 108 BUN/Creatinine Ratio 35.4 H Glucose 87 Calcium 8.7 Troponin T High Sens < 6 Troponin T Hi Sens 2 Hr < 6 Radiography Chest X-Ray - ED: 1 View, Read by ED Physician, Read by Radiologist and No Acute Disease Diagnostic Testing: Clinical Impression(s) from Imaging Studies Chest X-Ray 01/21/25 22:20 IMPRESSION: No acute cardiopulmonary disease. Reading Location: [facility] Chest CTA 01/21/25 22:36 IMPRESSION: No pulmonary arterial emboli. No airspace disease. Mild lower lobe discoid atelectasis. Small amount of residual resolving mediastinal hemorrhage previously seen tracking down from the neck soft tissues, status post recent ACDF. Postoperative changes to the imaged neck base. Reading Location: [facility] Rhythm Strip Rhythm Strip: Sinus Rhythm Rate: 63 Ectopy: None EKG Initial EKG: Attestation: I personally reviewed and interpreted this EKG as follows: Interpretation: Sinus Rhythm Comments: Normal sinus rhythm rate of 63 beats per minutes Normal intervals Normal axis Normal ST segments Management Discussion w/another healthcare provider: Hospitalist Discharge Plan Dx/Rx/DC Orders Clinical Impression: Near syncope, Elevated blood pressure reading, Status post cervical spinal fusion, Postoperative hematoma Disposition Disposition: Acute Care Hospital [facility]
[2025-01-21 21:54] VITALS: BP 146/100; PULSE 71; O2SAT 97
[2025-01-21 22:00] VITALS: BP 146/97; PULSE 60; O2SAT 95
[2025-01-21 22:07] LABS: Hematocrit 42.6 % (40-54); Hemoglobin 15.1 g/dL (13.0-16.5); Immature Granulocytes Count 0.360 X10^3/uL (0.0-0.0); Mean Corp Hgb Conc 35.4 g/dL (32-36); Mean Corpuscular Volume 94.7 fL (80-94); Mean Platelet Vol. 11.7 fl (6.2-12.0); NRBC Flagged by Analyzer 0.1 % (0-5); POSITIVE COUNT YES; POSITIVE DIFFERENTIAL YES; Platelet Count 208 K/mm3 (150-450); RBC Distribution Width CV 12.4 % (11.6-14.6); RBC Distribution Width SD 43.2 fl (35.1-43.9); Red Blood Count 4.50 M/mm3 (4.6-6.2); White Blood Count 17.3 K/mm3 (4.4-11.0)
--- NOTE | 2025-01-21 22:20 | RAD_ITS ---
PROCEDURE: RAD/Chest 1 View (Portable)
[2025-01-21 22:24] LABS: Differential Indicated SCAN CRITERIA MET
[2025-01-21 22:30] LABS: D-Dimer Quantitative (DVT/PE) 0.55 FEU/ug/m (0.27-0.49)
[2025-01-21 22:33] LABS: Troponin T High Sensitivity < 6 ng/L (<=22)
[2025-01-21 22:35] LABS: Red Cell Morphology NORM C+C NORMAL (NORM C&C)
[2025-01-21] MEDS: 0.9% Normal Saline (1000mL) 1,000 ML 999 ML IV (22:35)
--- NOTE | 2025-01-21 22:36 | CT_ITS ---
PROCEDURE: CT/CTA Chest W/WO Contrast
[2025-01-21 22:53] LABS: Anion Gap 14 (5-15); BUN 31 mg/dL (4-19); BUN/Creat Ratio 35.4 RATIO (10-20); Calcium,Total 8.7 mg/dL (7.6-11.0); Carbon Dioxide 19.8 mmol/L (21.0-32.0); Chloride 102 mmol/L (98-108); Estimated Creatinine Clearance 116.21 ml/min (50-250); Glucose 87 mg/dL (70-99); Potassium 3.9 mmol/L (3.3-5.1)
[2025-01-21 23:00] VITALS: BP 148/98; PULSE 63; O2SAT 95
[2025-01-22] VITALS (16 sets, daily range): BP systolic 120–173; BP diastolic 80–110; PULSE 51–77; RESP 16–18; TEMP 36.4–37; O2SAT 95–100; BMI 28.3
[2025-01-22 00:23] LABS: Troponin T High Sens 2 HR < 6 ng/L (<=22)
--- NOTE | 2025-01-22 00:45 | PCM.HP.STD ---
HPI - General General Date of Admission: 01/22/25 Date of Service: 01/22/25 Chief Complaint: dizziness HPI Narrative ANDREW SHAH, is a 45 M with a PMh as outlined who was admitted via the ED on 01/22/2025 with a complaint of dizziness. He was just discharged from [facility] on 01/21/2025 and started feeling dizzy when he got home. HE hasd associated shaking and lightheadedness with chest pain and shortness of breath. He was admitted for a surgical site anterior neck hematoma after he had a anterior cervical fusion. He went home nad came back feeling dizzy and lightheaded. He denied any nausea, vomiting, fever or chills or any other symptoms. He therefore came back to the ED. Vitals in the ED were blood pressure of 154/95, pulse rate of 62 and temperature of 97.9 Fahrenheit. He was saturating at 100% on room air. CBC showed hemoglobin of 15.1, WBC of 17.3 and platelets of 208. D-dimer is 0.55 which is elevated for his age. Chemistry shows sodium of 136 with potassium of 3.9 and creatinine of 0.87. Initial troponin was less than 6 and delta troponin was the same. Chest x-ray showed no acute cardiopulmonary pathology. CTA chest showed no evidence of PE or airspace disease and mild lower lobe discoid atelectasis and small amount of residual resolving mediastinal hemorrhage previously seen tracking down the soft neck tissue s/p recent anterior cervical disc fusion. He has been admitted to be managed for dizziness of unclear etiology. Orthostatics were also negative. [facility] Medical History Obesity (BMI 30-39.9) Wears glasses History of steroid therapy Smoker Migraines Asthma Internal hemorrhage Hypertension Home Medications ?Medication ?Instructions ?Recorded ?Last Taken ?Type albuterol sulfate 90 mcg/actuation 2 puff inhalation Q4-6H PRN dyspnea 01/05/25 Unknown History aerosol inhaler meloxicam 15 mg tablet 15 mg PO DAILY #30 tabs 01/18/25 Unknown Rx sennosides 8.6 mg capsule (senna) 8.6 mg PO BID PRN constipation #14 01/18/25 Unknown Rx caps diazepam 5 mg tablet 5 mg PO TID PRN muscle spasm #21 01/21/25 Unknown Rx tabs hydrochlorothiazide 25 mg tablet 25 mg PO DAILY #30 tabs 01/21/25 Unknown Rx metoprolol tartrate 100 mg tablet 100 mg PO BID #60 tabs 01/21/25 Unknown Rx valsartan 320 mg tablet (Diovan) 320 mg PO DAILY #30 tabs 01/21/25 Unknown Rx hydrocodone-acetaminophen 5-325mg 1 tab PO Q6H PRN PRN pain 01/22/25 Unknown History 5mg-325mg Allergy/AdvReac Type Severity Reaction Status Date / Time No Known Allergies Allergy Verified 01/21/25 20:55 Family History Other Liver cancer Ovarian cancer Surgical History History of tonsillectomy History of appendectomy Social History household members: spouse Smoking Status: Former smoker substance use type: does not use ROS Constitutional Constitutional: Reports fatigue, malaise and weakness; Denies anorexia, chills or fever(s) Eyes Eyes: Denies change in vision ENT HEENT: Denies ear pain, headache(s) or sore throat Cardiovascular Cardiovascular: Reports lightheadedness; Denies chest pain, dyspnea on exertion, edema, orthopnea, palpitations, paroxysmal nocturnal dyspnea, rapid heart rate or syncope Respiratory/Chest Respiratory/Chest: Denies cough, dyspnea or shortness of breath with exertion Gastrointestinal Gastrointestinal: Denies abdominal pain, constipation, diarrhea, nausea or vomiting Genitourinary Genitourinary: Denies dysuria Musculoskeletal Musculoskeletal: Denies joint pain or neck pain Neurologic Neurologic: Reports dizziness; Denies confusion, focal weakness, headache(s), numbness, paresthesias, seizure-like activity, seizures or syncope Psychiatric Psychiatric: Denies anxiety or depression Vital Signs Vital Signs Vital Signs: 01/21/25 20:55 01/21/25 21:07 01/21/25 21:48 Temperature 97.9 F Temperature Source Oral Pulse Rate 67 Pulse Rate [Lying] Pulse Rate [Sitting (for 1 minute prior to obtaining)] Pulse Rate [Standing (for 1 minute prior to obtaining)] Respiratory Rate 16 Respiratory Effort Normal Blood Pressure 136/92 H Blood Pressure [Lying] Blood Pressure [Sitting (for 1 minute prior to obtaining)] Blood Pressure [Standing (for 1 minute prior to obtaining)] Blood Pressure Mean 106 Blood Pressure Mean [Lying] Blood Pressure Mean [Sitting (for 1 minute prior to obtaining)] Blood Pressure Mean [Standing (for 1 minute prior to obtaining)] Pulse Ox 97 97 Oxygen Delivery Method Room Air Room Air 01/21/25 21:54 01/21/25 22:00 01/21/25 23:00 Temperature Temperature Source Pulse Rate 71 60 63 Pulse Rate [Lying] Pulse Rate [Sitting (for 1 minute prior to obtaining)] Pulse Rate [Standing (for 1 minute prior to obtaining)] Respiratory Rate Respiratory Effort Blood Pressure 146/100 H 146/97 H 148/98 H Blood Pressure [Lying] Blood Pressure [Sitting (for 1 minute prior to obtaining)] Blood Pressure [Standing (for 1 minute prior to obtaining)] Blood Pressure Mean 115 113 114 Blood Pressure Mean [Lying] Blood Pressure Mean [Sitting (for 1 minute prior to obtaining)] Blood Pressure Mean [Standing (for 1 minute prior to obtaining)] Pulse Ox 97 95 95 Oxygen Delivery Method Room Air 01/22/25 00:00 01/22/25 00:06 Temperature Temperature Source Pulse Rate 66 Pulse Rate [Lying] 62 Pulse Rate [Sitting (for 1 minute prior to obtaining)] 66 Pulse Rate [Standing (for 1 minute prior to obtaining)] 72 Respiratory Rate Respiratory Effort Blood Pressure 148/110 H Blood Pressure [Lying] 154/95 H Blood Pressure [Sitting (for 1 minute prior to obtaining)] 148/110 H Blood Pressure [Standing (for 1 minute prior to obtaining)] 160/101 H Blood Pressure Mean 122 Blood Pressure Mean [Lying] 114 Blood Pressure Mean [Sitting (for 1 minute prior to obtaining)] 122 Blood Pressure Mean [Standing (for 1 minute prior to obtaining)] 120 Pulse Ox 100 Oxygen Delivery Method Weight Weight: 193 lb Body Mass Index (BMI) 28.5 Physical Exam Const alert, oriented x3 and no apparent distress Constitutional Narrative: frail General Appearance: cooperative HEENT normocephalic, head/scalp atraumatic, moist oral mucous membranes and oropharynx normal Mouth: oral and palatal mucosa normal Eyes EOMs intact bilaterally and conjunctivae normal Neck supple and no JVD Neck Narrative: neck brace in place. Intact dressing over anterior cervical area Resp normal respiratory effort, no use of accessory muscles and clear to auscultation bilaterally Cardio regular rate, regular rhythm, S1 normal heart sound, S2 normal heart sound and no murmurs GI normal to inspection, nondistended, normoactive bowel sounds, soft to palpation, non-tender and non-distended Extremity normal to inspection, full ROM and no clubbing, cyanosis or edema Neuro oriented x3, moves all extremities and no focal motor deficits Sensorium / Orientation: awake and alert Motor Exam: strength 5/5 throughout Psych affect normal Results Lab / Micro Data 01/22/25 05:27 01/22/25 05:27 Labs: Laboratory Results - last 24 hr 01/21/25 21:45: WBC 17.3 H, RBC 4.50 L, Hgb 15.1, Hct 42.6, MCV 94.7 H, MCH 33.6 H, MCHC 35.4, RDW Std Deviation 43.2, RDW Coeff of Sravani 12.4, Plt Count 208, MPV 11.7, Immature Gran % (Auto) 2.100 H, Neut % (Auto) 72.7 H, Lymph % (Auto) 16.2 L, Taliaferro % (Auto) 8.8, Eos % (Auto) 0.0, Baso % (Auto) 0.2, Absolute Neuts (auto) 12.6 H, Absolute Lymphs (auto) 2.79, Nucleated RBC % 0.1, Platelet Estimate A, RBC Morphology NORM C+C, D-Dimer Quant (PE/DVT) 0.55 H*, Sodium 136, Potassium 3.9, Chloride 102, Carbon Dioxide 19.8 L, Anion Gap 14, BUN 31 H, Creatinine 0.87, Estim Creat Clear Calc 116.21, Est GFR (MDRD) Non-Af 108, BUN/Creatinine Ratio 35.4 H, Glucose 87, Calcium 8.7, Troponin T High Sens < 6 01/21/25 23:45: Troponin T Hi Sens 2 Hr < 6 Imaging Radiology Impression Chest X-Ray 01/21/25 22:20 IMPRESSION: No acute cardiopulmonary disease. Reading Location: [facility] Chest CTA 01/21/25 22:36 IMPRESSION: No pulmonary arterial emboli. No airspace disease. Mild lower lobe discoid atelectasis. Small amount of residual resolving mediastinal hemorrhage previously seen tracking down from the neck soft tissues, status post recent ACDF. Postoperative changes to the imaged neck base. Reading Location: [id number] Assessment & Plan Assessment/Plan (1) Elevated blood pressure reading: (2) Near syncope: PLAN: Plan #Dizziness and near syncope May be related to his elevated blood pressure. He was just discharged today after being managed for anterior neck hematoma as a postop complication of anterior cervical disc fusion. Get him intubated during the admission. Blood pressure was a bit elevated elevated and was 148/110 at time of review. Orthostatics were negative. Admit to PCU under observation. Hydrate gently with IV fluids. CTA of the chest done on account of mildly elevated D-dimer showed no PE and no airspace disease and only mild lower lobe discoid atelectasis. Chest ray has showed no evidence of cardiopulmonary disease. EKG showed no acute ST changes. Consult PT OT. Fall precautions. #Hypertension: On valsartan and hydrochlorothiazide. IV hydralazine as needed. Also on metoprolol. #Cervical myelopathy s/p recent anterior cervical disc fusion This was complicated by postop hematoma for which he required urgent I&D with evacuation and was intubated as a result. Was discharged home on 01/21/2025. Currently stable. DVT prophylaxis: SCDs Code status: full code Charges/Coding Visit Charges Inpatient E&M: 18581 Init Hosp L2 Procedures Hospitalists Procedures: 17517 Advncd Care Plan 30 Min
[2025-01-22] MEDS: 0.9% Saline Lock 10 ML Syringe IV (02:06)
[2025-01-22] MEDS: HYDROcodone Bitartrate/Apap 5/325 Tablet PO ×3 (02:06→21:08)
[2025-01-22] MEDS: 0.9% Normal Saline (1000mL) 1,000 ML 125 ML IV ×2 (02:06→09:54)
[2025-01-22 02:36] LABS: Troponin T High Sens 4 HR < 6 ng/L (<=22)
[2025-01-22 06:23] LABS: Hematocrit 41.3 % (40-54); Hemoglobin 14.3 g/dL (13.0-16.5); Immature Granulocytes Count 0.240 X10^3/uL (0.0-0.0); Mean Corp Hgb Conc 34.6 g/dL (32-36); Mean Corpuscular Volume 96.5 fL (80-94); Mean Platelet Vol. 11.8 fl (6.2-12.0); NRBC Flagged by Analyzer 0 % (0-5); Platelet Count 220 K/mm3 (150-450); RBC Distribution Width CV 12.5 % (11.6-14.6); RBC Distribution Width SD 44.4 fl (35.1-43.9); Red Blood Count 4.28 M/mm3 (4.6-6.2); White Blood Count 15.4 K/mm3 (4.4-11.0)
--- NOTE | 2025-01-22 06:44 | EKG12_ITS ---
Test Reason : cp
[2025-01-22 06:49] LABS: Anion Gap 12 (5-15); BUN 30 mg/dL (4-19); BUN/Creat Ratio 37.1 RATIO (10-20); Calcium,Total 8.8 mg/dL (7.6-11.0); Carbon Dioxide 23.1 mmol/L (21.0-32.0); Chloride 102 mmol/L (98-108); Estimated Creatinine Clearance 124.59 ml/min (50-250); Glucose 90 mg/dL (70-99); Potassium 3.3 mmol/L (3.3-5.1)
[2025-01-22 07:38] LABS: Troponin T High Sensitivity 6 ng/L (<=22)
[2025-01-22 09:50] LABS: Troponin T High Sens 2 HR < 6 ng/L (<=22)
[2025-01-22 11:40] LABS: Troponin T High Sens 4 HR 8 ng/L (<=22)
--- NOTE | 2025-01-22 14:02 | NURSING ---
Pt states neck dressing has not been changed since it was placed. Removed gauze and IV 3000. Area is dry and intact with some crusted blood. Area cleaned. No erythema, discharge, or other signs of infection. Pt denies pain at site of the incision. Seven angie intact. New gauze and [id number] placed at this time.
--- NOTE | 2025-01-22 17:32 | EKG12_ITS ---
Test Reason : cp
--- NOTE | 2025-01-22 17:32 | PCM.HOSP.N ---
Hospitalist Note Patient was seen and examined today, he complains of dizziness particularly when he moves his head. He has also been complaining of chest pressure today, his EKG and troponins have been unremarkable. Patient's CT of his chest does not show any evidence of pulmonary embolism and his mediastinal hematoma is smaller in size. I have elected to schedule the patient for a pharmacological stress test tomorrow morning-I do not know the etiology of his chest pain. Patient's dizziness symptoms seem to indicate he may have vertigo. Patient's blood pressure still appears to be elevated, he will continue on his present medications, I have decided to add amlodipine to his medications. He will receive hydralazine as needed.
[2025-01-23 03:05] VITALS: BP 113/92; PULSE 59; RESP 16; TEMP 36.9; O2SAT 98
[2025-01-23] MEDS: HYDROcodone Bitartrate/Apap 5/325 Tablet PO ×2 (03:58→11:22)
[2025-01-23 05:52] VITALS: BP 113/89; PULSE 62; RESP 16; TEMP 36.7; O2SAT 96
[2025-01-23 08:25] VITALS: BP 106/68; PULSE 55; RESP 16; TEMP 36.8; O2SAT 96
--- NOTE | 2025-01-23 08:49 | PN.HOSP_ITS ---
Reason for Visit
--- NOTE | 2025-01-23 08:49 | PCM.PN.HOSP ---
Reason for Visit Chief Complaint: dizziness Subjective Subjective Dizziness still ongoing, but improved. Had midsternal chest pain that he described as burning, midsternal and non-radiating. Objective Data Objective Data Vital Signs: Vital Signs Temp Pulse Resp BP Pulse Ox O2 Del Method 36.8 C 55 L 16 106/68 96 Room Air 01/23/25 08:25 01/23/25 08:25 01/23/25 08:25 01/23/25 08:25 01/23/25 08:25 01/23/25 08:25 Oxygen Delivery Method Room Air Weight: 87.2 kg Body Mass Index (BMI) 28.3 Intake & Output: Intake and Output for Last 24 Hours 01/21/25 01/22/25 01/23/25 23:59 23:59 23:59 Intake Total 3120 / 3120 Balance 3120 / 3120 Lab / Micro Data 01/22/25 05:27 01/22/25 05:27 Labs: Laboratory Results - last 24 hr 01/22/25 09:12: Troponin T Hi Sens 2 Hr < 6 01/22/25 10:50: Troponin T Hi Sens 4Hr 8 Rhythm Strip Rhythm Strip: Sinus Rhythm Rate: 63 Ectopy: None Physical Exam Const alert and no apparent distress HEENT HEENT Narrative: right lateral nystagmus that fatigues. Resp normal respiratory effort and no retractions Cardio regular rate, regular rhythm, S1 normal heart sound and S2 normal heart sound GI normal to inspection, nondistended, normoactive bowel sounds, soft to palpation, non-tender and non-distended Extremity normal to inspection and full ROM Neuro Sensorium / Orientation: awake and alert Assessment & Plan Assessment/Plan (1) Elevated blood pressure reading: (2) Near syncope: PLAN: Plan Dizziness 2/2 BPPV. Symptoms abating, but not resolved PRN meclizine Not a candidate for cesar smith at this time given his recent neck surgery. Hypertension: On valsartan and hydrochlorothiazide. IV hydralazine as needed. Also on metoprolol. Cervical myelopathy s/p recent anterior cervical disc fusion This was complicated by postop hematoma for which he required urgent I&D with evacuation and was intubated as a result. Was discharged home on 01/21/2025. Currently stable. Follow up with Dr. Villagran. Chest pain stress negative. likely due to reflux/esophageal spasm. No additional work up./ DVT prophylaxis: SCDs Code status: full code
[2025-01-23 11:20] VITALS: BP 124/89; PULSE 96; RESP 18; TEMP 36.8; O2SAT 98
[2025-01-23 11:22] VITALS: PULSE 96
--- NOTE | 2025-01-23 14:21 | PCM.DC.SUM ---
Providers Date of Admission: 01/22/25 Primary Care Physician: LAKISHA PeñalozaC Reason For Visit: DIZZINESS Diagnosis Discharge Diagnosis (1) Elevated blood pressure reading: Status: Acute Code(s): R03.0 - Elevated blood-pressure reading, without diagnosis of hypertension (2) Near syncope: Status: Acute Code(s): R55 - Syncope and collapse Plan Dizziness 2/2 BPPV. Symptoms abating, but not resolved PRN meclizine Not a candidate for cesar smith at this time given his recent neck surgery. Hypertension: On valsartan and hydrochlorothiazide and metoprolol tartrate. Cervical myelopathy s/p recent anterior cervical disc fusion This was complicated by postop hematoma for which he required urgent I&D with evacuation and was intubated as a result. Was discharged home on 01/21/2025. Currently stable. Follow up with Dr. Villagran. Chest pain stress negative. likely due to reflux/esophageal spasm. No additional work up./ DVT prophylaxis: SCDs Code status: full code Medications at Discharge Home Medications albuterol sulfate 90 mcg/actuation aerosol inhaler 2 puff inhalation Q4-6H PRN dyspnea 01/05/25 meloxicam 15 mg tablet 15 mg PO DAILY #30 tabs 01/18/25 sennosides 8.6 mg capsule (senna) 8.6 mg PO BID PRN constipation #14 caps 01/18/25 diazepam 5 mg tablet 5 mg PO TID PRN muscle spasm #21 tabs 01/21/25 hydrochlorothiazide 25 mg tablet 25 mg PO DAILY #30 tabs 01/21/25 metoprolol tartrate 100 mg tablet 100 mg PO BID #60 tabs 01/21/25 valsartan 320 mg tablet (Diovan) 320 mg PO DAILY #30 tabs 01/21/25 hydrocodone-acetaminophen 5-325mg 5mg-325mg 1 tab PO Q6H PRN PRN pain 01/22/25 meclizine 25 mg tablet 25 mg PO TID PRN dizziness #20 tabs 01/23/25 Hospital Course Operations None Procedures Stress test Summary of Care Provided Hospital Course: Greater than 30-minute spent on discharge This is a 45-year-old male presents with acute onset of dizziness and subsequently midsternal chest pain. Patient underwent cervical surgery on the but developed a hematoma postoperatively that caused have respiratory failure requiring being placed in the intensive care unit. He underwent evacuation early in the morning on the . He was eventually discharged on the and had been doing okay but then suddenly had a worsening dizziness on the that led him to come to the hospital. Head CT was negative. Dizziness is abating, but ongoing, so he will receive a prescription for PRN meclizine. He is not a candidate for cesar smith given his cervical surgery. While he was here he developed midsternal burning chest pain that was nonradiating. Stress test was performed and was negative. Chest pain was felt to be likely reflux esophagitis versus esophageal spasm. Weight / BMI Weight Weight: 87.2 kg Body Mass Index (BMI) 28.3 ABG / Lab / Microbiology Data 01/22/25 05:27 01/22/25 05:27 D/C Instructions Call your doctor if your incision/area has: Continuous Slow Oozing, Sudden Increased Bleeding, Increased Pain/ Swelling, Increased Redness, Foul Smelling Discharge and Swelling at the incision site DC O2, CPAP, BIPAP Needs Home O2 Discharge instructions: No Meaningful Use Info Meaningful Use Meaningful Use Diagnoses (Choose all that apply): None applicable Discharge Plan Admission Admit Date/Time: 01/22/25 01:13 Primary Reason for Your Visit: vertigo Attending Provider: Rhett Joseph Primary Care Provider: Makeda Hawkins Consulting Providers: Denise Worley; Kyle Ly Instructions Additional Instructions / Restrictions: You presented with dizziness but your neurologic workup was normal, there was no evidence of stroke. Your dizziness is likely due to an inner ear vertigo known as benign paroxysmal positional vertigo. Fortunately this is a self-limiting condition that resolves on its own. Sometimes with the dizziness's medication called meclizine (also known as Antivert) can help with the dizziness. Yesterday had chest pain back stress test was fortunately negative. Likely may have been some reflux that you may have experienced because that chest discomfort. No additional workup is necessary at this time. Please follow-up with Dr. Villagran on the Discharge Orders/Prescriptions Prescriptions: New meclizine 25 mg tablet 25 mg PO TID PRN (Reason: dizziness) Qty: 20 0RF Continued albuterol sulfate 90 mcg/actuation HFA aerosol inhaler 2 puff inhalation Q4-6H PRN (Reason: dyspnea) hydrocodone-acetaminophen 5-325 mg tablet 1 tab PO Q6H PRN PRN (Reason: pain) meloxicam 15 mg tablet 15 mg PO DAILY Qty: 30 0RF Rx Instructions: take once a day senna 8.6 mg capsule 8.6 mg PO BID PRN (Reason: constipation) Qty: 14 0RF diazepam 5 mg Tablet 5 mg PO TID PRN (Reason: muscle spasm) Qty: 21 0RF hydrochlorothiazide 25 mg Tablet 25 mg PO DAILY Qty: 30 0RF valsartan [Diovan] 320 mg tablet 320 mg PO DAILY Qty: 30 0RF metoprolol tartrate 100 mg Tablet 100 mg PO BID Qty: 60 0RF Referrals / Follow Up: Makeda Hawkins NP-C [Primary Care Provider, Family Practice] - Within 2 Weeks Adan Villagran MD [Med Staff - Active Staff, Orthopedics] - 02/02/25 8:30 am Disposition Disposition (needs filled in before D/C Order can be placed): Home, Self Care Charges/Coding Visit Charges Inpatient E&M: 43044 Disch Hosp >30min
--- NOTE | 2025-01-23 15:50 | PCM.PN.ORT ---
Subjective Subjective Saw patient in PCU 109. Patient readmitted for dizziness and hypotension. Says that dizziness happens when he is supine but improves with upright positioning. Has some headache as well. Patient was evaluated for cardiac sources of dizziness with a stress test today. Continues to be on antihypertensives. Objective Data Objective Data Vital Signs: Vital Signs Temp Pulse Resp BP Pulse Ox O2 Del Method 98.2 F 96 18 124/89 H 98 Room Air 01/23/25 11:20 01/23/25 11:22 01/23/25 11:20 01/23/25 11:20 01/23/25 11:20 01/23/25 15:05 Oxygen Delivery Method Room Air Weight: 192 lb 3.889 oz Body Mass Index (BMI) 28.3 Intake & Output: Intake and Output for Last 24 Hours 01/21/25 01/22/25 01/23/25 23:59 23:59 23:59 Intake Total 3120 / 3120 120 / 120 Balance 3120 / 3120 120 / 120 Lab / Micro Data 01/22/25 05:27 01/22/25 05:27 Rhythm Strip Rhythm Strip: Sinus Rhythm Rate: 63 Ectopy: None Physical Exam Narrative Dressing CDI. Okay to remove gauze and Tegaderm and place Band-Aids if needed. Neurologic bilateral upper extremities show 5 out of 5 strength. Assessment & Plan Assessment/Plan (1) Status post cervical spinal fusion: PLAN: Plan Postop day 5 status post C5-7 ACDF, status post hematoma evacuation, readmitted for dizziness and hypertension. Okay to remove dressing and use Band-Aids as needed. Collar on at all times, may remove for eating. Encourage PT OT mobilization as frequently as possible. Encourage incentive spirometry. Advance diet as tolerated to regular diet if no soreness. Patient will follow-up with me in clinic as scheduled.
--- NOTE | 2025-01-23 16:28 | CASEMGMT ---
ABHINAV CM in to discuss THOMAS form with patient. RN CM explained THOMAS form, patient voiced understanding. Pt signed form and filed in chart. Pt provided with a copy of signed THOMAS form. Patient had no further questions or concerns at this time.
[2025-01-23 17:20] VITALS: BP 100/69; PULSE 70; RESP 16; TEMP 36.9; O2SAT 98
--- NOTE | 2025-01-23 18:02 | STRESSREP_ITS ---
Stress Test Report
--- NOTE | 2025-01-23 18:02 | STRESSREP ---
Stress Test Report Pharmacologic myocardial perfusion stress test. 45-year-old man with a history of chest pain. Resting EKG demonstrates normal sinus rhythm with a rate of 69 bpm. Resting blood pressure is 112/78 mmHg. 0.4 mg of regadenoson was infused per usual protocol followed by rapid intravenous saline flush injection. Continuous EKG monitoring was performed. The maximum heart rate was 121 bpm which was 69% of max impacted heart rate the maximum workload was 1 metabolic equivalent. At rest there were no ST or T wave changes noted to suggest ischemia and at peak infusion nonspecific ST changes were noted which did not meet the criteria for ischemia. No clinical angina is noted. The final blood pressure was 110/70 mmHg. Myocardial perfusion protocol. 12 mCi of technetium 99m sestamibi was injected at rest. 0.4 mg of regadenoson was infused per usual protocol. At peak infusion 34 point mCi of technetium 99m sestamibi was injected stress images were obtained stress and rest images were reconstructed and compared in the short axis vertical long and horizontal long axis. Gated images were also obtained. Perfusion SPECT analysis: Review of the stress images demonstrate normal uptake of tracer noted in all areas of the myocardium. The resting images similar demonstrated normal uptake of tracer noted in all areas of the myocardium. No areas of reversibility are noted to suggest ischemia and no previous infarct is noted. Gated SPECT analysis: The gated ejection fraction is 56%. Conclusion: Normal pharmacologic myocardial perfusion stress test. Preserved ejection fraction.
== END 2025-01-23 18:13 | disposition home or self-care (01) ==
LOC: ED 01-22 00:56 → PCU 01-22 01:17
PROVIDERS: Admitting Provider Student in an Organized Health Care Education/Training Program; Emergency Provider Emergency Medicine; PCP Nurse Practitioner Family
DX: H81.10 Benign paroxysmal vertigo, unspecified ear (principal); G95.9 Disease of spinal cord, unspecified; I10 Essential (primary) hypertension; R07.9 Chest pain, unspecified; J45.909 Unspecified asthma, uncomplicated; E66.9 Obesity, unspecified; Z68.28 Body mass index [BMI] 28.0-28.9, adult; Z79.899 Other long term (current) drug therapy; Z98.1 Arthrodesis status; Z87.891 Personal history of nicotine dependence
CPT/HCPCS: 36415; 71045; 71275; 78452; 80048; 84484; 85025; 85379; 93005; 93017; 94668; 96361; 96374; 97161; 97166; 97802; 99221; 99252; 99285; 99406; A9500; Q9967; A4216; G0378; G0463; J2785